=== PATIENT | male | born 1965 | race Caucasian/White ===

== ENCOUNTER 2017-08-17 08:09 | Emergency (ER) | payer OTHER, SELFPAY ==
[2017-08-17 08:10] VITALS: BP 133/96; PULSE 103; RESP 14; TEMP 36.4; O2SAT 98; BMI 21.8
--- NOTE | 2017-08-17 08:21 | ED.DEP ---
ED Disposition - Plan for ED Patient: Chief Complaint: Cellulitis Instructions: ED Plantar Fasciitis Prescriptions: Cephalexin [Keflex] 500 mg PO Q6 #28 capsule Referrals: Abdullahi Hope III, MD [Primary Care Provider] - Norma Boyce DPM [STAFF PHYSICIAN] -
--- NOTE | 2017-08-17 08:25 | ED.VISSUMM ---
- ER Visit Summary Date of Service: 08/17/17 Chief Complaint: Bilateral foot pain History of Present Illness: The patient is a 51 M presenting with pain on the bottom of both feet. He states he walks frequently. He walks about 2 miles per day. He states he began having pain in both of his feet in the beginning of August. He was seen at urgent care. He was diagnosed with cellulitis. He was given Keflex. He states he improved within 2 days. He states yesterday the pain started to come back. Denies injury. Denies other complaints. Physical Examination: Vitals are stable. Patient is afebrile. Alert no acute distress. HEENT exam is unremarkable. Neck is supple. Lungs are clear and equal bilaterally. Heart is regular rate and rhythm. Extremities mild tenderness to plantar surface of both feet. Mild erythema of plantar surface of heel. Normal pulses. Active full range of motion. Skin is warm and dry. No focal neurologic deficit. Remainder of exam is unremarkable. Emergency Department Course and Treatment: I feel his history and physical are more consistent with plantar fasciitis. He is advised to wear supportive shoes and follow up with podiatry. Patient is concerned this may be an early cellulitis. He is given a prescription for Keflex and advised to return to the ED if he has any worsening symptoms. Disposition: Discharge home Impression: Plantar fasciitis This note was generated with [employer] dictation software. It may contain incorrect words, spelling, and punctuation that were not noted in review of the chart prior to signing ED Disposition - Plan for ED Patient: Chief Complaint: Cellulitis Instructions: ED Plantar Fasciitis Prescriptions: Cephalexin [Keflex] 500 mg PO Q6 #28 capsule Referrals: Abdullahi Hope III, MD [Primary Care Provider] - Norma Boyce DPM [STAFF PHYSICIAN] -
== END 2017-08-17 08:38 | disposition home or self-care (01) ==
LOC: ED 08:27
PROVIDERS: Emergency Provider Emergency Medicine; Family Provider Family Medicine; PCP Family Medicine
DX: M72.2 Plantar fascial fibromatosis (principal); I10 Essential (primary) hypertension; K21.9 Gastro-esophageal reflux disease without esophagitis; Z72.0 Tobacco use
CPT/HCPCS: 99282

== ENCOUNTER 2019-03-31 09:24 | Inpatient (IN) | payer MEDICAID, SELFPAY ==
[2019-03-31] VITALS (10 sets, daily range): BP systolic 144–161; BP diastolic 96–121; PULSE 95–133; RESP 14–20; TEMP 36.5–36.9; O2SAT 94–100; BMI 24.1; BMI 22.8; BMI 22.9
--- NOTE | 2019-03-31 09:44 | RAD_ITS ---
STUDY: X-RAY CHEST REASON FOR EXAM: Male, 53 years old. COUGH. TECHNIQUE: PA and lateral views of the chest. COMPARISON: Comparison is made with prior examination dated February 26, 2011. FINDINGS: Hyperinflation. The lungs are clear. Decrease lower bronchovascular markings suggestive of emphysematous changes. Stable calcified granuloma in the right lung base. There is no demonstrated pleural abnormality. Normal size heart. Normal mediastinum and june. Normal visualized pulmonary arteries. Normal visualized aortic arch and descending thoracic aorta. There are diffuse degenerative changes of the visualized thoracic spine. Healed right rib fractures. There is no demonstrated abnormality of the visualized soft tissue structures of the upper abdomen. RAD/Chest PA and Lateral IMPRESSION: Hyperinflation. No acute abnormality is seen. Electronically Signed: Colin Velez, at 11:10 EST , Service support ,
--- NOTE | 2019-03-31 09:44 | EKG12_ITS ---
Test Reason : SUBSTANCE ABUSE Blood Pressure : / mmHG Vent. Rate : 102 BPM Atrial Rate : 102 BPM P-R Int : 156 ms QRS Dur : 100 ms QT Int : 340 ms P-R-T Axes : 056 -24 057 degrees QTc Int : 443 ms Sinus tachycardia Anteroseptal infarct (cited on or before 29-APR-2013) Abnormal ECG Confirmed by ELOISE MENDOSA, KATHRYN ([id number]), health editor TERI SANON ([id number]) on 04/02/2019 1:09:30 PM Referred By: ROSSANA Confirmed By:ZAK NAVAS MD
--- NOTE | 2019-03-31 09:47 | ED.DCSUM_ITS ---
- ER Visit Summary Date of Service: 03/31/19 Chief Complaint: Alcohol detox History of Present Illness: The patient is a 53 M who presents requesting detox from alcohol. Patient states that since October he has been drinking approximately 12 beers per day. Patient states he feels shaky and has a throbbing headache whenever he tries to stop drinking alcohol. Patient states his last drink was approximately 30 minutes prior to arrival. Patient denies any visual changes or hallucinations. Patient also admits to a cough that has been getting worse over the past few days. Patient states he has some pain in his back that is similar to the pain he had when he had pneumonia. Patient denies any fevers or chills. Patient states he is coughing up some clear sputum. Physical Examination: Vital signs are stable except for an elevated blood pressure 157/119 and a tachycardia of 133. Patient is afebrile. Patient is in no acute distress. Oral mucosa is pink and moist. Neck is supple. Trachea is midline. There is no JVD. Heart was regular and tachycardic. Lungs show diffuse expiratory wheezes. There is good respiratory effort. There are no retractions. Abdomen is soft. Bowel sounds are normal. There is no tenderness. Cranial nerves II through XII are intact. There are no focal motor or sensory deficits noted. Test Results: CBC was normal. Comprehensive metabolic profile shows sodium of 125 and mildly elevated liver function tests. Serum alcohol level was 282. Urine tox screen was ordered and is pending. PA and lateral chest x-ray was obtained. There is no acute cardiopulmonary process. This was interpreted by the radiologist and reviewed by myself. Emergency Department Course and Treatment: Patient was given IV fluids, phenobarbital, and Ativan here. Patient was given a DuoNeb here. Patient was feeling better on reevaluation. Case was discussed with the hospitalist. She will admit the patient to her service. Patient understood and was agreeable with the plan. All questions were answered. Disposition: Admit to hospital Impression: Alcohol abuse This note was generated with [employer] dictation software. It may contain incorrect words, spelling, and punctuation that were not noted in review of the chart prior to signing ED Disposition - Plan for ED Patient: Disposition: Acute Care Hospital [facility] Diagnosis: Alcohol abuse Referrals: Abdullahi Hope III, MD [Primary Care Provider] -
[2019-03-31] MEDS: Ipratropium/Albuterol Sulfate 3 ML AMPUL.NEB INHALATION (09:58)
[2019-03-31] MEDS: LORazepam 2 MG/ML Syringe 0.5 MG IV (09:59)
[2019-03-31] MEDS: 0.9% Normal Saline 1,000 ML 1000 ML IV (09:59)
[2019-03-31 10:16] LABS: Absolute Lymphocyte Count 2.14 X10^3/uL (0.83-4.51); Absolute Neutrophil Count 4.3 X10^3/uL (2.0-7.7); Basophil# 0.04 X10^3/uL; Basophil% 0.5 % (0-1); Eosinophil# 0.25 X10^3/uL; Eosinophils% 3.4 % (0-5); Hematocrit 40.9 % (40-54); Hemoglobin 14.4 g/dL (13.0-16.5); Lymphocyte # 2.14 X10^3/ul (4.0); Mean Corp Hgb Conc 35.2 g/dL (32-36); Mean Corpuscular Hgb 32.4 pg (27.0-32.0); Mean Corpuscular Volume 91.9 fL (80-94); Mean Platelet Vol. 9.3 fl (6.2-12.0); Monocyte# 0.66 X10^3/uL; Monocyte% 8.9 % (0-10); NRBC Flagged by Analyzer 0 % (0-5); Neutrophil # 4.27 X10^3/uL (2.7-7.7); Neutrophil % 57.8 % (47-70); Platelet Count 193 K/mm3 (150-450); RBC Distribution Width CV 12.2 % (11.6-14.6); RBC Distribution Width SD 41.6 fl (35.1-43.9); Red Blood Count 4.45 M/mm3 (4.6-6.2); White Blood Count 7.4 K/mm3 (4.4-11.0)
[2019-03-31 10:33] LABS: ALB/GLOB Ratio 0.8 RATIO (0.9-2.4); AST(SGOT) 328 U/L (15-37); Alanine Aminotransfer ALT/SGPT 209 U/L (16-61); Albumin, Serum 3.3 g/dL (3.2-5.0); Alkaline Phosphatase 158 U/L (45-117); Anion Gap 9 (5-15); BUN 4 mg/dL (7-18); BUN/Creat Ratio 6.6 RATIO (10-20); Calcium,Total 8.4 mg/dL (8.5-10.1); Chloride 94 mmol/L (98-107); Creatinine, Serum 0.61 mg/dL (0.70-1.30); EST Glomerular Filtration Rate 147 mL/min (>60); Est Glom Filt Rate - Afr Amer 178 mL/min (>60); Estimated Creatinine Clearance 147.45 ml/min; Globulin 4.1 g/dL (2.2-4.2); Glucose 116 mg/dL (74-106); Lipase 353 U/L (73-393); Potassium 3.7 mmol/L (3.5-5.1); Protein, Total 7.4 g/dL (6.4-8.2); Sodium Level 125 mmol/L (136-145)
--- NOTE | 2019-03-31 11:50 | PCM.HP.STD ---
Problem List (1) Alcohol withdrawal Status: Acute Qualifiers: Complication of substance-induced condition: uncomplicated Qualified Code(s): F10.230 - Alcohol dependence with withdrawal, uncomplicated (2) Alcohol abuse Status: Chronic (3) Tobacco use Status: Chronic (4) GERD (gastroesophageal reflux disease) Status: Chronic Qualifiers: Esophagitis presence: esophagitis presence not specified Qualified Code(s): K21.9 - Gastro-esophageal reflux disease without esophagitis (5) Hypertension Status: Chronic Qualifiers: Hypertension type: essential hypertension Qualified Code(s): I10 - Essential (primary) hypertension History of Present Illness Date of Admission: 03/31/19 Chief Complaint: Alcohol abuse, desires detox The patient is a 53 y/o M w/ PMHx: HTN, Tobacco use, Chronic back pain w/ radiculopathy, Cannabis usage, Alcohol abuse (>12 beers daily), GERD who presents to the [facility] ED on 03/31/19 with history of losing his job this past October and since then has increased his beer intake, previously 5-6 beers each night now up to well past 12 beers daily with concurrently increased tobacco usage previously from half a pack to 1 pack/day now up to 2 pack/day cigarette tobacco usage attempting to decrease his alcohol intake over the last 2 to 3 days unsuccessfully with significant onset nausea, tremors, agitation, tactile disturbances with last drink 1 beer, 12 ounce approximately 1 hour prior to arrival but significant decrease in general intake over the last 24 to 48 hours. Patient interested in attaining sober status and has never been through alcohol detoxification prior. Discussed frankly that patient significant is also a heavy alcohol user and therefore complicates his chances of sobriety if he returns home to this environment. He notes that his significant and him are working on achieving a sober household. Work-up in the ED included 97.7, heart rate 133, BP 157/119, respiratory rate 18, 96% on room air, CBC with WBC 7.4, hemoglobin 14.4, platelet 193 with no shift, CMP with sodium 125, chloride 94, BUN/creatinine 4/0.61, glucose 116, AST/ALT 328/209, alk phos 158 lipase 353, alcohol level 282, chest x-ray with hyperinflation otherwise no acute abnormalities. In the ED patient administered normal saline, phenobarbital 324 mg p.o. x1, Ativan 0.5 mg IV x1 as well as DuoNeb therapy. Past Medical History Past Medical History (Chronic Problems): Chronic Problems Alcohol abuse (Chronic) Tobacco use (Chronic) GERD (gastroesophageal reflux disease) (Chronic) Hypertension (Chronic) Allergies lisinopril Allergy (Verified 03/31/19 09:25) Angioedema aspirin Adverse Reaction (Verified 03/31/19 09:25) HEARTBURN codeine Adverse Reaction (Verified 03/31/19 09:25) NIGHTMARES Home Medications: Ambulatory Orders Medication Instructions Recorded Omeprazole [Prilosec] 10 mg PO DAILY 04/29/13 Amlodipine [Norvasc] 10 mg PO DAILY #30 tablet 04/30/13 Hydrochlorothiazide [Hctz] 12.5 mg PO DAILY 08/17/17 Losartan Potassium 50 mg PO DAILY 08/17/17 Surgical History: - - L testicle removal s/p torsion at 18 y/o, T+A. Psychiatric History: No pertinent psych hx Lives: Spouse/ Significant Other Smoking Status: Current every day smoker - Patient currently up to 2 pack/day cigarette tobacco usage starting when he was 15 years old but increasing over the last year. Tobacco Use: Cigarettes Alcohol: Heavy - Patient currently drinking well over 12, 12 ounce beers daily, increased from prior 5-6 beers nightly following recent loss of his job. Drugs: Marijuana - *Family History Maternal History Items: - - Patient notes a maternal family history of hypertension, heart disease. Paternal History Items: - - Patient notes a paternal family history of hypertension, heart disease and diabetes. Review of Systems Constitutional: Reports: Anorexia, Malaise, Weakness, Fatigue. Denies: Chills, Fever, Weight Change HEENT: Reports: Head Aches. Denies: Sinus Congestion, Sinus Drainage Cardiovascular: Denies: Chest Pain, Palpitations Respiratory: Denies: Cough, Shortness of breath at rest, Sputum production Gastrointestinal: Reports: Nausea. Denies: Abdominal Pain, Vomiting Genitourinary: Denies: Dysuria Musculoskeletal: Reports: Back Pain, Joint Pain. Denies: Joint Tenderness Skin: Denies: Rash, Wounds Neurological: Reports: Tremor. Denies: Focal weakness, Numbness, Tingling Psychiatric: Reports: - - Tactile hallucinations.. Denies: Anxiety, Depression, Homicidal Ideations, Suicidal Ideations Hematologic/ Lymphatic: Denies: Easy Bruising, Easy Bleeding VTE Information - Inpt Only VTE Present on Admission: No VTE Mechan Device Prophylaxis: SCD's VTE Pharm Prophylaxis ordered?: Yes Patient Problems: Active and Suspected Problems Alcohol withdrawal (Acute) Subjective: Seated upright in the bed, fatigued appearance, notes tremors improving since phenobarbital but mildly agitated. Objective: Physical Examination: General: awake, alert, oriented x 3 and cooperative, seated upright in the medical surgical bed, no acute distress but still mild tremors, improved he notes from initial ED presentation. Skin: normal color, turgor, no icterus, cyanosis. HEENT: AT/NC, EOMI, PERRLA, dry MM, no carotid bruits or JVD noted. Lungs: CTA bilaterally, moderate effort, moderate decrease BL bases, no rales, ronchi or wheezing. Heart: Mildly tachycardic with regular rhythm; no gallop, rub audible. Abdomen: soft, NTTP, ND, normal BS, mild HM. Extremities: no cyanosis, clubbing, or edema. Neurological: patient awake, alert, oriented x 3; cognitive function suspect near baseline intact; pupils equally reactive to light and accomodation; cranial nerves II-XII grossly normal, moving all 4 extremities, no focal deficits, strength moderately global decrease secondary to acute presentation, mild tremors present although improved initial ED presentation he notes. Psychiatric: affect appears [place], mildly agitated, no acute evidence of depressive or anxiety feelings. - Physical Exam Vitals/I&O's: Vital Signs Temp Pulse Resp BP Pulse Ox 97.7 F L 112 H 14 161/106 H 96 03/31/19 10:03 03/31/19 11:14 03/31/19 11:14 03/31/19 11:14 03/31/19 11:14 Oxygen Delivery Method Room Air Weight: 173 lb 4.533 oz Body Mass Index (BMI) 24.1 Laboratory Results 03/31/19 10:07: WBC 7.4, RBC 4.45 L, Hgb 14.4, Hct 40.9, MCV 91.9, MCH 32.4 H, MCHC 35.2, RDW Std Deviation 41.6, RDW Coeff of Wen 12.2, Plt Count 193, MPV 9.3, Immature Gran % (Auto) 0.400, Neut % (Auto) 57.8, Lymph % (Auto) 29.0, [place] % (Auto) 8.9, Eos % (Auto) 3.4, Baso % (Auto) 0.5, Absolute Neuts (auto) 4.3, Absolute Lymphs (auto) 2.14, Nucleated RBC % 0 03/31/19 10:07: Sodium 125 L, Potassium 3.7, Chloride 94 L, Carbon Dioxide 22.0, Anion Gap 9, BUN 4 L, Creatinine 0.61 L, Estim Creat Clear Calc 147.45, Est GFR (MDRD) Af Amer 178, Est GFR (MDRD) Non-Af 147, BUN/Creatinine Ratio 6.6 L, Glucose 116 H, Calcium 8.4 L, Total Bilirubin 0.50, AST 328 H, ALT 209 H, Alkaline Phosphatase 158 H, Total Protein 7.4, Albumin 3.3, Globulin 4.1, Albumin/Globulin Ratio 0.8 L, Lipase 353 03/31/19 10:07: Ethyl Alcohol 282.0 Assessment/Plan All Active Problems Alcohol withdrawal (Acute) Angioedema of lips (Acute) The patient is a 53 y/o M w/ PMHx: HTN, Tobacco use, Chronic back pain w/ radiculopathy, Cannabis usage, Alcohol abuse (>12 beers daily), GERD who presents to the [facility] ED on 03/31/19 with history of losing his job this past October and since then has increased his beer intake, previously 5-6 beers each night now up to well past 12 beers daily, attempting to decrease his alcohol intake over the last 2 to 3 days unsuccessfully with significant onset nausea, tremors, agitation, tactile disturbances with last drink 1 beer, 12 ounce approximately 1 hour prior to arrival. 1. Acute EtOH Withdrawal: Will admit to [facility], routine of labs obtained in the ED with noted sodium 125, chloride 94, BUN/creatinine 4/0.61, glucose 116, AST/ALT 328/209, alk phos 158 lipase 353, alcohol level 282, urine tox screen with positive cannabis, will initiate on IV phenobarbital taper with 60 mg IV every 6 hours x24 hours with then transition to 60 mg IV every 8 hours x24 hours and then transition to 60 mg IV twice daily with also as needed Seroquel, Catapres, Bentyl, Vistaril, IV fluids, IV antiemetics, Tylenol as needed for pain. Once patient clinically improved and completion of taper nearing will request case management consultation for assistance for transition to next level of rehabilitation care especially if patient significant is going to be in the house and continues to drink heavily. Mag, phos pending. Maintain on concurrent CIWA protocol. 2. Hyponatremia, acute on chronic: Admission sodium 125, likely chronic component with beer pyromania, gently hydrating given dehydrated appearance upon presentation, repeat CMP in a.m. 3. Elevated LFTs: Admission AST/ALT 328/209, likely related with his acute alcohol intake, gently hydrating, initiating alcohol withdrawal protocol as noted, trend CMP, consider ultrasound, notes that he has had HIV and hepatitis testing secondary to sexual intercourse status with men and was noted to be negative recently. 4. Hypertension: Continue home regimen including Norvasc, losartan, given acute presentation temporarily holding hydrochlorothiazide with re-addition once appropriate, PRN hydralazine. 5. Tobacco Abuse: Encouraged cessation, inpatient consultation per RT, NR if desired. 6. GERD: Maintain on PPI. 7. DVT prophylaxis: SCDs, Lovenox with de-escalation once more ambulatory. Code Visit Inpatient E&M: [id number] Init Hosp L3
--- NOTE | 2019-03-31 11:57 | CM.ED ---
Social Work Consult: Substance Abuse Informant: Dr. Mcneal Chief Complaint: Patient wanting to detox from alcohol. Patient stating to have attempted on own but to have been too unsteady. Patient also stating to have had a racing heart beat. Marital/Social History: Currently in relationship with Andrés Parsons. Patient stating to have been with Andrés for several years. Patient stating that Bill is patient partner and is supportive of patient. Living Situation: Andrés recently moved in with patient. Stressors/Triggers: Patient lost job in 2018 and stating to have increased in drinking since then. 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 Patient currently unemployed and working on finding a job. Patient stating there are jobs out there. Patient stating to have not found the job that is offering patient enough money yet. Mental Health Treatment/History: Patient stating a history of depression but no active treatment for this. Patient stating to have received treatment for depression years ago via counseling/medication. Patient stating I need to get back on that. Patient denies any history of inpatient psychiatric placements. Substance Abuse/Use: Patient stating to drink 12-14 regular sized cans of beer daily. Patient stating to have not eaten for the past week and to have depended on beer for nutrition. Patient stating no history of detox but to be aware of process due to patient partner doing through alcohol detox 8 times in the past. Patient stating that partner does still drink alcohol but that patient partner is supportive and did bring patient to the ED today. Patient stating to smoke tobacco daily and to use THC occasionally. Patient stating last beer was this morning and last use of THC was a few days ago. Patient denies any other substance abuse/use. Risk to Self/Others: Patient denies any current or history of suicidal/homicidal thoughts/attempts. Mental Status Exam: A&Ox3 General Behavior/Appearance: Calm. Clean. Appropriate. Engaged in conversation. Pleasant Affect. Made appropriate eye contact. Assessment: Met with patient in room. Introduced self as well as social service technician role. Patient stating to have attempted detox on own at home but that it did not work and patient ended up drinking beer today. Patient did not specify for how long patient attempted detox on own. Patient aware that detoxing from alcohol can be life threatening. Patient stating to have been scared and this is why patient came to the hospital today. Patient desires inpatient admission for detox and then plans to follow up with [facility] as an outpatient. Patient stating a history of a DUI and to have followed up with [facility] at the time and this was supportive and help for patient. Patient stating to have also attended AA groups in the past but to not be sure if patient would like to go back as there is a mindset. Patient did voice that AA groups could be supportive. Active listening and support provided. Currently pending doctor assessment to see if patient qualifies for inpatient stay for detox. Will follow up with patient further if patient is to be discharged to the community on this day. If patient is to be admitted social work to continue to follow as needed on the acute care unit. PLAN: Pending doctor evaluation for disposition. Gianna PLATT, SOTERO
--- NOTE | 2019-03-31 12:10 | CM.ED ---
Social Work Patient to be admitted to acute per medical doctor documentation. Gianna Schafer OPERATING ROOM REGISTERED NURSE, SOTERO
[2019-03-31 12:17] LABS: Bacteria 0 SEEN /hpf (None Seen); Mucous, Urine 0 SEEN /hpf (<or=2+); White Blood Cells 0 SEEN /hpf (0-5)
[2019-03-31 12:18] LABS: Color, Urine Straw (Yellow); Glucose, Dipstick Normal (Normal); Ketone-Dipstick Negative (Negative); Leukocyte Esterase-Dipstick Negative /ul (Negative); Nitrite-Dipstick Negative (Negative); Occult Blood-Urine 10 /ul (Negative); Protein-Dipstick 15 mg/dl (Negative); Specific Gravity, Urine 1.005 (1.002-1.030); Urine Bilirubin Dipstick Negative (Negative); Urine Clarity Sl. Cloudy (Clear); Urine Urobilinogen Normal (Normal)
[2019-03-31 12:24] LABS: Red Blood Cells-Urine 0-5 SEEN /hpf (0-5); Squamous Epithelial Cells - UA 0-5 SEEN /hpf (0-5)
[2019-03-31 12:30] LABS: Amphetamine Urine VISTA NEGATIVE (<1000 ng/mL); Barbiturate Urine VISTA NEGATIVE (< 200 ng/mL); Benzodiazepine Urine VISTA NEGATIVE (< 200 ng/mL); Cocaine Urine VISTA NEGATIVE (< 300 ng/mL); Ecstacy Urine VISTA NEGATIVE (< 500 ng/mL); Methadone Urine VISTA NEGATIVE (< 300 ng/mL); PCP Urine VISTA NEGATIVE (< 25 ng/mL); THC Urine VISTA POSITIVE (< 50 ng/mL); Vista UDS pH Range 6
[2019-03-31 13:23] LABS: Magnesium 1.9 mg/dL (1.6-2.6); Phosphorus 3.8 mg/dL (2.5-4.9)
[2019-03-31] MEDS: 0.9% Saline Lock 10 ML Syringe IV ×5 (13:32→22:10)
[2019-03-31] MEDS: 0.9% Normal Saline 1,000 ML 125 ML IV (13:33)
[2019-03-31 13:46] LABS: Bedside Glucose 89 mg/dL (70-110)
--- NOTE | 2019-03-31 13:53 | NURSING ---
This RN called [facility] in [place] and verified home meds with pharmacy per pt request.
[2019-03-31] MEDS: Thiamine Hydrochloride 100 MG Tablet PO (14:03)
[2019-03-31] MEDS: Folic Acid 1 MG Tablet PO (14:03)
[2019-03-31] MEDS: Phenobarbital Sodium 65 MG/ML Vial 60 MG IV ×2 (14:04→20:35)
[2019-03-31] MEDS: LORazepam 2 MG/ML Syringe IV (17:13)
--- NOTE | 2019-03-31 18:08 | NURSING ---
pt refusing scd's- states they will drive me crazy. Educated on reason why they were ordered and to prevent DVT- pt refuses to wear despite education.
[2019-03-31] MEDS: traZODone 50 MG Tablet PO (22:21)
[2019-03-31] MEDS: LORazepam 1 MG Tablet 2 MG PO (22:28)
[2019-03-31] MEDS: Methocarbamol 750 MG Tablet PO (22:28)
[2019-03-31] MEDS: amLODIPine 10 MG Tablet PO (22:30)
[2019-03-31] MEDS: Losartan Potassium 50 MG Tablet PO (22:31)
[2019-04-01] VITALS (9 sets, daily range): BP systolic 134–162; BP diastolic 94–119; PULSE 90–100; RESP 16–20; TEMP 36.6–37.2; O2SAT 95–99
[2019-04-01] MEDS: Phenobarbital Sodium 65 MG/ML Vial 60 MG IV ×4 (02:53→23:12)
[2019-04-01] MEDS: 0.9% Saline Lock 10 ML Syringe IV ×3 (02:53→23:21)
[2019-04-01] MEDS: Ibuprofen 600 MG Tablet PO (02:57)
[2019-04-01 05:06] LABS: Absolute Lymphocyte Count 1.19 X10^3/uL (0.83-4.51); Absolute Neutrophil Count 5.3 X10^3/uL (2.0-7.7); Basophil# 0.05 X10^3/uL; Basophil% 0.7 % (0-1); Eosinophil# 0.21 X10^3/uL; Eosinophils% 2.8 % (0-5); Hematocrit 39.9 % (40-54); Hemoglobin 13.7 g/dL (13.0-16.5); Lymphocyte # 1.19 X10^3/ul (4.0); Mean Corp Hgb Conc 34.3 g/dL (32-36); Mean Corpuscular Hgb 32.1 pg (27.0-32.0); Mean Corpuscular Volume 93.4 fL (80-94); Mean Platelet Vol. 9.7 fl (6.2-12.0); Monocyte# 0.69 X10^3/uL; Monocyte% 9.2 % (0-10); NRBC Flagged by Analyzer 0 % (0-5); Neutrophil # 5.28 X10^3/uL (2.7-7.7); Neutrophil % 70.8 % (47-70); Platelet Count 155 K/mm3 (150-450); RBC Distribution Width CV 12.5 % (11.6-14.6); RBC Distribution Width SD 43.1 fl (35.1-43.9); Red Blood Count 4.27 M/mm3 (4.6-6.2); White Blood Count 7.5 K/mm3 (4.4-11.0)
[2019-04-01 05:30] LABS: ALB/GLOB Ratio 0.9 RATIO (0.9-2.4); AST(SGOT) 224 U/L (15-37); Alanine Aminotransfer ALT/SGPT 181 U/L (16-61); Albumin, Serum 3.2 g/dL (3.2-5.0); Alkaline Phosphatase 154 U/L (45-117); Anion Gap 5 (5-15); BUN 5 mg/dL (7-18); BUN/Creat Ratio 8.3 RATIO (10-20); Calcium,Total 8.5 mg/dL (8.5-10.1); Chloride 95 mmol/L (98-107); Creatinine, Serum 0.61 mg/dL (0.70-1.30); EST Glomerular Filtration Rate 147 mL/min (>60); Est Glom Filt Rate - Afr Amer 178 mL/min (>60); Estimated Creatinine Clearance 145.68 ml/min; Globulin 3.6 g/dL (2.2-4.2); Glucose 91 mg/dL (74-106); Potassium 3.7 mmol/L (3.5-5.1); Protein, Total 6.8 g/dL (6.4-8.2); Sodium Level 129 mmol/L (136-145)
--- NOTE | 2019-04-01 07:45 | PCM.PN.HOSP ---
Patient Problems: Active and Suspected Problems Alcohol withdrawal (Acute) Subjective: Patient with no acute events overnight per self and per nursing report. Discussed recurrent elevation of liver enzymes and potential for liver ultrasound as patient had noted he had recent negative hepatitis panel but declined. Stated that it could be because of his alcohol consumption but there could also be an underlying alternate possibility but despite these discussions declined the study. He states that his withdrawal symptoms are remarkably improved. He denies any tremors. He notes he slept very well. He does state that he has information from case management and social work about 180 and this is being also given to his significant. Patient denies fevers, chills, nausea, emesis, abdominal pain, chest pain or dyspnea. Objective: Physical Examination: General: awake, alert, oriented x 3 and cooperative, seated upright in the Medr bed, well-appearing, no obvious withdrawal symptoms, notes feeling improved since initial presentation. Skin: normal color, turgor, no icterus, cyanosis. HEENT: AT/NC, EOMI, PERRLA, MMM. Lungs: CTA bilaterally, moderate effort, moderate decrease BL bases, no rales, ronchi or wheezing. Heart: Regular rate and rhythm; no gallop, rub audible. Abdomen: soft, NTTP, ND, normal BS. Extremities: no cyanosis, clubbing, or edema. Neurological: patient awake, alert, oriented x 3; cognitive function intact; pupils equally reactive to light and accomodation; cranial nerves II-XII grossly normal, moving all 4 extremities, no focal deficits, strength preserved. Psychiatric: affect appears improved, less fatigued, not agitated, no acute evidence of depressive or anxiety feelings. Vitals/I&O's: Vital Signs Temp Pulse Resp BP Pulse Ox 98.2 F 97 18 146/98 H 95 04/01/19 06:17 04/01/19 06:17 04/01/19 06:17 04/01/19 06:17 04/01/19 06:17 Oxygen Delivery Method Room Air Weight: 164 lb 0.383 oz Body Mass Index (BMI) 22.8 Intake and Output for Last 24 Hours 03/30/19 03/31/19 04/01/19 23:59 23:59 23:59 Intake Total 3200 / 3200 300 / 300 Balance 3200 / 3200 300 / 300 Laboratory Results 03/31/19 10:07: WBC 7.4, RBC 4.45 L, Hgb 14.4, Hct 40.9, MCV 91.9, MCH 32.4 H, MCHC 35.2, RDW Std Deviation 41.6, RDW Coeff of Wen 12.2, Plt Count 193, MPV 9.3, Immature Gran % (Auto) 0.400, Neut % (Auto) 57.8, Lymph % (Auto) 29.0, [place] % (Auto) 8.9, Eos % (Auto) 3.4, Baso % (Auto) 0.5, Absolute Neuts (auto) 4.3, Absolute Lymphs (auto) 2.14, Nucleated RBC % 0 03/31/19 10:07: Sodium 125 L, Potassium 3.7, Chloride 94 L, Carbon Dioxide 22.0, Anion Gap 9, BUN 4 L, Creatinine 0.61 L, Estim Creat Clear Calc 147.45, Est GFR (MDRD) Af Amer 178, Est GFR (MDRD) Non-Af 147, BUN/Creatinine Ratio 6.6 L, Glucose 116 H, Calcium 8.4 L, Total Bilirubin 0.50, AST 328 H, ALT 209 H, Alkaline Phosphatase 158 H, Total Protein 7.4, Albumin 3.3, Globulin 4.1, Albumin/Globulin Ratio 0.8 L, Lipase 353 03/31/19 10:07: Ethyl Alcohol 282.0 03/31/19 10:07: Phosphorus 3.8, Magnesium 1.9 03/31/19 12:05: Urine Color Straw, Urine Clarity Sl. Cloudy, Urine pH 7.0, Ur Specific [place] 1.005, Urine Protein 15 H, Urine Glucose (UA) Normal, Urine Ketones Negative, Urine Occult Blood 10 H, Urine Nitrite Negative, Urine Bilirubin Negative, Urine Urobilinogen Normal, Ur Leukocyte Esterase Negative, Urine RBC 0-5 SEEN, Urine WBC 0 SEEN, Ur Squamous Epith Cells 0-5 SEEN, Urine Bacteria 0 SEEN, Urine Mucus 0 SEEN 03/31/19 12:05: Urine Opiates Screen NEGATIVE, Urine Methadone Screen NEGATIVE, Ur Barbiturates Screen NEGATIVE, Ur Phencyclidine Scrn NEGATIVE, Ur Amphetamines Screen NEGATIVE, U Methamphetamin-MDMA NEGATIVE, U Benzodiazepines Scrn NEGATIVE, Urine Cocaine Screen NEGATIVE, U Cannabinoids Screen POSITIVE H, Ur Drug Screen Comment 03/31/19 13:36: POC Glucose 89 04/01/19 04:55: WBC 7.5, RBC 4.27 L, Hgb 13.7, Hct 39.9 L, MCV 93.4, MCH 32.1 H, MCHC 34.3, RDW Std Deviation 43.1, RDW Coeff of Wen 12.5, Plt Count 155, MPV 9.7, Immature Gran % (Auto) 0.500, Neut % (Auto) 70.8 H, Lymph % (Auto) 16.0 L, [place] % (Auto) 9.2, Eos % (Auto) 2.8, Baso % (Auto) 0.7, Absolute Neuts (auto) 5.3, Absolute Lymphs (auto) 1.19, Nucleated RBC % 0 04/01/19 04:55: Sodium 129 L, Potassium 3.7, Chloride 95 L, Carbon Dioxide 29.0, Anion Gap 5, BUN 5 L, Creatinine 0.61 L, Estim Creat Clear Calc 145.68, Est GFR (MDRD) Af Amer 178, Est GFR (MDRD) Non-Af 147, BUN/Creatinine Ratio 8.3 L, Glucose 91, Calcium 8.5, Total Bilirubin 1.30 H, AST 224 H, ALT 181 H, Alkaline Phosphatase 154 H, Total Protein 6.8, Albumin 3.2, Globulin 3.6, Albumin/Globulin Ratio 0.9 Current Medications Acetaminophen (Tylenol) 500 mg PO Q4H PRN PRN PRN Reason: Temp > 100.4 F Al Hydroxide/Mg Hydroxide (Mylanta Ii) 30 ml PO Q6H PRN PRN PRN Reason: dyspesia Albuterol Sulfate (Ventolin Aerosols) 2.5 mg INHALATION Q2H PRN PRN PRN Reason: Shortness of Breath/Wheezing Amlodipine Besylate (Norvasc) 10 mg PO DAILY [facility] Last Admin: 03/31/19 22:30 Dose: 10 mg Documented by: Bisacodyl (Dulcolax) 10 mg RECTAL DAILY PRN PRN Reason: Constipation Dicyclomine HCl (Bentyl) 20 mg PO Q6H PRN PRN PRN Reason: abdominal discomfort Enoxaparin Sodium (Lovenox) 40 mg SC DAILY [facility] Folic [facility] ([facility]) [facility] Stop: 04/02/19 08:01 Last Admin: 03/31/19 14:03 Dose: 1 mg Documented by: Glucagon () 1 mg IM .X1 PRN PRN Reason: Hypoglycemia Guaifenesin (Robitussin) 20 ml PO Q4H PRN PRN PRN Reason: COUGH Hydralazine HCl (Apresoline Iv) 10 mg IV Q4H PRN PRN PRN Reason: SBP > 160 Hydroxyzine Pamoate (Vistaril Pamoate Capsule) 50 mg PO Q6H PRN PRN PRN Reason: Mild Anxiety (score 1/3) Sodium Chloride () 250 mls @ 15 mls/hr IV .[id number] PRN PRN Reason: Saline Flush Sodium Chloride () 250 mls @ 15 mls/hr IV .[id number] PRN PRN Reason: Additional IVPB Infusion Dextrose (Dextrose 10%-Water) 250 mls @ 999 mls/hr IV .Q16M PRN; Protocol PRN Reason: HYPOGLYCEMIA Ibuprofen (Motrin) 600 mg PO Q8H PRN PRN PRN Reason: Pain Score 1-5/10 Last Admin: 04/01/19 02:57 Dose: 600 mg Documented by: Loperamide HCl (Imodium) 2 - 4 mg PO UD PRN PRN Reason: LOOSE STOOLS Lorazepam (Ativan) 2 mg IV X1 PRN PRN Reason: Seizure Lorazepam (Ativan) 2 mg PO Q2H PRN PRN; Protocol PRN Reason: CIWA score > 8 but <15 Last Admin: 03/31/19 22:28 Dose: 2 mg Documented by: Lorazepam (Ativan) 2 mg PO UD PRN; Protocol PRN Reason: CIWA score >/=15. Lorazepam (Ativan) 2 mg IV Q2H PRN PRN; Protocol PRN Reason: CIWA score > 8 but <15 Lorazepam (Ativan) 2 mg IV UD PRN; Protocol PRN Reason: CIWA score >/=15. Last Admin: 03/31/19 17:13 Dose: 2 mg Documented by: Losartan Potassium (Cozaar) 50 mg PO DAILY [facility] Last Admin: 03/31/19 22:31 Dose: 50 mg Documented by: Methocarbamol (Methocarbamol) 750 mg PO Q6H PRN PRN PRN Reason: Muscle Aches Last Admin: 03/31/19 22:28 Dose: 750 mg Documented by: Multivitamins (Multivitamin) [facility] Nicotine (Nicoderm Cq (Pbkc)) 21 mg TRANSDERM. DAILY [facility] Last Admin: 03/31/19 16:57 Dose: 21 mg Documented by: Nutritional Formula (Lactose Free) (Ensure Enlive) 120 ml PO 4X/DAY [facility] Last Admin: 03/31/19 22:21 Dose: 120 ml Documented by: Ondansetron HCl (Zofran Odt) 4 mg PO Q6H PRN PRN PRN Reason: NAUSEA Pantoprazole Sodium (Protonix) 20 mg PO DAILY [facility] Phenobarbital (Phenobarbital) 60 mg IV Q6H [facility] Stop: 04/01/19 08:01 Last Admin: 04/01/19 02:53 Dose: 60 mg Documented by: Phenobarbital (Phenobarbital) 60 mg IV Q8H [facility] Stop: 04/02/19 16:01 Phenobarbital (Phenobarbital) 60 mg IV Q12H [facility] Stop: 04/03/19 16:01 Senna (Senokot) 1 tablet PO QHS PRN PRN Reason: Constipation Sodium Chloride () 10 - 40 ml IV UD PRN PRN Reason: SALINE FLUSH Last Admin: 04/01/19 02:53 Dose: 10 ml Documented by: Thiamine HCl (Vitamin B1) [facility] Stop: 04/02/19 08:01 Last Admin: 03/31/19 14:03 Dose: 100 mg Documented by: Throat Lozenges (Cepacol Sore Throat Lozenge) 1 lozenge MUCOUS MEM Q2H PRN PRN PRN Reason: Sore throat or cough Trazodone HCl (Desyrel) 50 mg PO QHS [facility] Last Admin: 03/31/19 22:21 Dose: 50 mg Documented by: STROKE Vital Signs/Narrative: Vital Signs Temp Pulse Resp BP Pulse Ox 04/01/19 06:17 98.2 F 97 18 146/98 H 95 Medical Necessity - Tobacco Use Smoking Status: Current every day smoker - Patient currently up to 2 pack/day cigarette tobacco usage starting when he was 15 years old but increasing over the last year. Tobacco Use: Cigarettes Assessment/Plan All Active Problems Alcohol withdrawal (Acute) Angioedema of lips (Acute) The patient is a 53 y/o M w/ PMHx: HTN, Tobacco use, Chronic back pain w/ radiculopathy, Cannabis usage, Alcohol abuse (>12 beers daily), GERD who presents to the [facility] ED on 03/31/19 with history of losing his job this past October and since then has increased his beer intake, previously 5-6 beers each night now up to well past 12 beers daily, attempting to decrease his alcohol intake over the last 2 to 3 days unsuccessfully with significant onset nausea, tremors, agitation, tactile disturbances with last drink 1 beer, 12 ounce approximately 1 hour prior to arrival. 1. Acute EtOH Withdrawal: Admitted to CT, routine of labs obtained in the ED with noted sodium 125, chloride 94, BUN/creatinine 4/0.61, glucose 116, AST/ALT 328/209, alk phos 158 lipase 353, alcohol level 282, urine tox screen with positive cannabis, initiated on IV phenobarbital taper with 60 mg IV every 6 hours x24 hours with then transition to 60 mg IV every 8 hours x 24 hours and then transition to 60 mg IV twice daily with also as needed Seroquel, Catapres, Bentyl, Vistaril, IV fluids, IV antiemetics, Tylenol as needed for pain. Patient clinically improving, will continue current regimen as noted, discussed again patient's significant who is also an alcoholic and lives at the same house and patient noted that he was able to get information about 180 and is significant is amenable to reporting there and undergoing treatment also. Mag, phos obtained and normal levels. Maintain on concurrent CIWA protocol concurrently. 2. Hyponatremia, acute on chronic: Admission sodium 125, likely chronic component with beer potomania, gently hydrated given dehydrated appearance upon presentation, repeat CMP 04/01/19 with Na 129. 3. Elevated LFTs: Admission AST/ALT 328/209, likely related with his acute alcohol intake, gently hydrated, initiated alcohol withdrawal protocol as noted, trending CMP w/ noted 04/01/19 T Bili 1.30, AST/ALT 224/181, Alk phos 154, patient declined liver ultrasound and discussed that alcohol intake could likely be the etiology, also noted recent HIV and hepatitis testing which was unremarkable and notes that he does obtain this routinely. 4. Hypertension: Continue home regimen including Norvasc, will increase patient losartan, given acute presentation and history of beer potomania held hydrochlorothiazide, in the future may be a good option for this patient but given his chronic hyponatremia already will discontinue, PRN hydralazine. 5. Tobacco Abuse: Encouraged cessation, inpatient consultation per RT, NR if desired. 6. GERD: Maintain on PPI. 7. DVT prophylaxis: Improved status, encourage ambulation, d/c SCD/lovenox. Code Visit Inpatient E&M: 24474 Subs Hosp L2
[2019-04-01] MEDS: Folic Acid 1 MG Tablet PO (08:59)
[2019-04-01] MEDS: Thiamine Hydrochloride 100 MG Tablet PO (08:59)
[2019-04-01] MEDS: Multivitamins,Therapeutic Tablet 1 TABLET PO (08:59)
[2019-04-01] MEDS: Enoxaparin 40 MG/0.4 ML Syringe SC (09:00)
[2019-04-01] MEDS: Losartan Potassium 50 MG Tablet PO (09:00)
[2019-04-01] MEDS: amLODIPine 10 MG Tablet PO (09:01)
[2019-04-01] MEDS: Pantoprazole Sodium 20 MG Tablet PO (09:01)
--- NOTE | 2019-04-01 10:14 | CASEMGMT ---
Social Work Note SW met with pt to follow up on substance abuse and self-pay status. SW introduced self and role at [facility]. Pt is alert and orientated x3. Pt states that he plans on following up with [facility] at discharge and will either do Walk in Assessment or schedule an appointment. Pt denied wanting this worker to make appointment. Pt confirms that he doesn't have insurance. Pt states he hasn't applied for Medicaid and denied wanting a medicaid application. Pt denied any financial concerns. Pt denied wanting additional resources. Plan: [facility] at discharge [employer], [employer]
--- NOTE | 2019-04-01 17:10 | NURSING ---
iv phenobarb not on unit, pharmacy made aware to please send, dose for 1600 has not been given
[2019-04-01] MEDS: hydrALAZINE 20 MG/ML Vial 10 MG IV (23:21)
[2019-04-02 05:51] VITALS: BP 152/113; PULSE 100; RESP 16; TEMP 36.3; O2SAT 99
[2019-04-02] MEDS: LORazepam 1 MG Tablet 2 MG PO ×2 (05:59→16:41)
--- NOTE | 2019-04-02 07:02 | PN_ITS ---
Patient Problems: Active and Suspected Problems Alcohol withdrawal (Acute) Subjective: Patient notes overnight he decided not to take the trazodone and had significant difficulty sleeping with extremely intermittent vivid dreams. He notes that late yesterday he considered leaving as he felt like he could maybe do it on his own and was feeling improved but he is glad that he stayed especially given he felt worse during the evening but this morning was administered breakthrough CIWA and feels improved and understands what he needs to remain for ongoing treatment. Patient denies fevers, chills, nausea, emesis, abdominal pain, chest pain or dyspnea. Objective: Physical Examination: General: awake, alert, oriented x 3 and cooperative, seated upright in the [facility] bedside chair, more fatigued than day prior, no obvious withdrawal symptoms but does describe having a relatively rough night. Skin: normal color, turgor, no icterus, cyanosis. HEENT: AT/NC, EOMI, PERRLA, MMM. Lungs: CTA bilaterally, moderate effort, moderate decrease BL bases, no rales, ronchi or wheezing. Heart: Regular rate and rhythm; no gallop, rub audible. Abdomen: soft, NTTP, ND, normal BS. Extremities: no cyanosis, clubbing, or edema. Neurological: patient awake, alert, oriented x 3; cognitive function intact; pupils equally reactive to light and accomodation; cranial nerves II-XII grossly normal, moving all 4 extremities, no focal deficits, strength mildly global decreased given fatigue. Psychiatric: affect appears more fatigued than day prior, no acute evidence of depressive or anxiety feelings. Vitals/I&O's: Vital Signs Temp Pulse Resp BP Pulse Ox 97.4 F L 100 16 152/113 H 99 04/02/19 05:51 04/02/19 05:51 04/02/19 05:51 04/02/19 05:51 04/02/19 05:51 Oxygen Delivery Method Room Air Weight: 164 lb 0.383 oz Body Mass Index (BMI) 22.8 Intake and Output for Last 24 Hours 03/31/19 04/01/19 04/02/19 23:59 23:59 23:59 Intake Total 3200 / 3200 300 / 300 Balance 3200 / 3200 300 / 300 Current Medications Acetaminophen (Tylenol) 500 mg PO Q4H PRN PRN PRN Reason: Temp > 100.4 F Al Hydroxide/Mg Hydroxide (Mylanta Ii) 30 ml PO Q6H PRN PRN PRN Reason: dyspesia Albuterol Sulfate (Ventolin Aerosols) 2.5 mg INHALATION Q2H PRN PRN PRN Reason: Shortness of Breath/Wheezing Amlodipine Besylate (Norvasc) 10 mg PO DAILY [facility] Last Admin: 04/01/19 09:01 Dose: 10 mg Documented by: Bisacodyl (Dulcolax) 10 mg RECTAL DAILY PRN PRN Reason: Constipation Dicyclomine HCl (Bentyl) 20 mg PO Q6H PRN PRN PRN Reason: abdominal discomfort [facility]) [facility] Stop: 04/02/19 08:01 Last Admin: 04/01/19 08:59 Dose: 1 mg Documented by: Glucagon () 1 mg IM .X1 PRN PRN Reason: Hypoglycemia Guaifenesin (Robitussin) 20 ml PO Q4H PRN PRN PRN Reason: COUGH Hydralazine HCl (Apresoline Iv) 10 mg IV Q4H PRN PRN PRN Reason: SBP > 160 Last Admin: 04/01/19 23:21 Dose: 10 mg Documented by: Hydroxyzine Pamoate (Vistaril Pamoate Capsule) 50 mg PO Q6H PRN PRN PRN Reason: Mild Anxiety (score 1/3) Sodium Chloride () 250 mls @ 15 mls/hr IV .[id number] PRN PRN Reason: Saline Flush Sodium Chloride () 250 mls @ 15 mls/hr IV .[id number] PRN PRN Reason: Additional IVPB Infusion Dextrose (Dextrose 10%-Water) 250 mls @ 999 mls/hr IV .Q16M PRN; Protocol PRN Reason: HYPOGLYCEMIA Ibuprofen (Motrin) 600 mg PO Q8H PRN PRN PRN Reason: Pain Score 1-5/10 Last Admin: 04/01/19 02:57 Dose: 600 mg Documented by: Loperamide HCl (Imodium) 2 - 4 mg PO UD PRN PRN Reason: LOOSE STOOLS Lorazepam (Ativan) 2 mg IV X1 PRN PRN Reason: Seizure Lorazepam (Ativan) 2 mg PO Q2H PRN PRN; Protocol PRN Reason: CIWA score > 8 but <15 Last Admin: 04/02/19 05:59 Dose: 2 mg Documented by: Lorazepam (Ativan) 2 mg PO UD PRN; Protocol PRN Reason: CIWA score >/=15. Lorazepam (Ativan) 2 mg IV Q2H PRN PRN; Protocol PRN Reason: CIWA score > 8 but <15 Lorazepam (Ativan) 2 mg IV UD PRN; Protocol PRN Reason: CIWA score >/=15. Last Admin: 03/31/19 17:13 Dose: 2 mg Documented by: Losartan Potassium (Cozaar) 100 mg PO DAILY [facility] Methocarbamol (Methocarbamol) 750 mg PO Q6H PRN PRN PRN Reason: Muscle Aches Last Admin: 03/31/19 22:28 Dose: 750 mg Documented by: Multivitamins ([facility]itamin) [facility] Last Admin: 04/01/19 08:59 Dose: 1 tablet Documented by: Nicotine (Nicoderm Cq (Pbkc)) 21 mg TRANSDERM. DAILY [facility] Last Admin: 04/01/19 08:59 Dose: 21 mg Documented by: Nutritional Formula (Lactose Free) (Ensure Enlive) 120 ml PO 4X/DAY [facility] Last Admin: 04/01/19 20:33 Dose: Not Given Documented by: Ondansetron HCl (Zofran Odt) 4 mg PO Q6H PRN PRN PRN Reason: NAUSEA Pantoprazole Sodium (Protonix) 20 mg PO DAILY [facility] Last Admin: 04/01/19 09:01 Dose: 20 mg Documented by: Phenobarbital (Phenobarbital) 60 mg IV Q8H [facility] Stop: 04/02/19 16:01 Last Admin: 04/01/19 23:12 Dose: 60 mg Documented by: Phenobarbital (Phenobarbital) 60 mg IV Q12H [facility] Stop: 04/03/19 16:01 Senna (Senokot) 1 tablet PO QHS PRN PRN Reason: Constipation Sodium Chloride () 10 - 40 ml IV UD PRN PRN Reason: SALINE FLUSH Last Admin: 04/01/19 23:21 Dose: 10 ml Documented by: Thiamine HCl (Vitamin B1) [facility] Stop: 04/02/19 08:01 Last Admin: 04/01/19 08:59 Dose: 100 mg Documented by: Throat Lozenges (Cepacol Sore Throat Lozenge) 1 lozenge MUCOUS MEM Q2H PRN PRN PRN Reason: Sore throat or cough Trazodone HCl (Desyrel) 50 mg PO QHS [facility] Last Admin: 04/01/19 23:12 Dose: Not Given Documented by: STROKE Vital Signs/Narrative: Vital Signs Temp Pulse Resp BP Pulse Ox 04/02/19 05:51 97.4 F L 100 16 152/113 H 99 Medical Necessity - Tobacco Use Smoking Status: Current every day smoker - Patient currently up to 2 pack/day cigarette tobacco usage starting when he was 15 years old but increasing over the last year. Tobacco Use: Cigarettes Assessment/Plan All Active Problems Alcohol withdrawal (Acute) Angioedema of lips (Acute) The patient is a 53 y/o M w/ PMHx: HTN, Tobacco use, Chronic back pain w/ radiculopathy, Cannabis usage, Alcohol abuse (>12 beers daily), GERD who presents to the [facility] ED on 03/31/19 with history of losing his job this past October and since then has increased his beer intake, previously 5-6 beers each night now up to well past 12 beers daily, attempting to decrease his alcohol intake over the last 2 to 3 days unsuccessfully with significant onset nausea, tremors, agitation, tactile disturbances with last drink 1 beer, 12 ounce approximately 1 hour prior to arrival. 1. Acute EtOH Withdrawal: Admitted to [place], routine of labs obtained in the ED with noted sodium 125, chloride 94, BUN/creatinine 4/0.61, glucose 116, AST/ALT 328/209, alk phos 158 lipase 353, alcohol level 282, urine tox screen with positive cannabis, initiated on IV phenobarbital taper with 60 mg IV every 6 hours x24 hours with then transition to 60 mg IV every 8 hours x 24 hours and then transition to 60 mg IV twice daily with also as needed Seroquel, Catapres, Bentyl, Vistaril, IV fluids, IV antiemetics, Tylenol as needed for pain. Patient 04/01/2019 into 04/02/2019 a.m. with difficulty overnight with increased withdrawal symptoms, intermittent difficulty sleeping and vivid dreams with also tactile hallucinations however this improved through the morning especially with breakthrough [place]. Patient did initially have thoughts to leave but remained in his God he did so and this was discussed frankly. Reconfirmed that significant is being evaluated at 184 treatment. Mag and fossa levels normal. Maintain on breakthrough CIWA. 2. Hyponatremia, acute on chronic: Admission sodium 125, likely chronic component with beer potomania, gently hydrated given dehydrated appearance upon presentation, repeat CMP 04/01/19 with Na 129. Deferred further labs. 3. Elevated LFTs: Admission AST/ALT 328/209, likely related with his acute alcohol intake, gently hydrated, initiated alcohol withdrawal protocol as noted, trending CMP w/ noted 04/01/19 T Bili 1.30, AST/ALT 224/181, Alk phos 154, patient declined liver ultrasound and discussed that alcohol intake could likely be the etiology, also noted recent HIV and hepatitis testing which was unremarkable and notes that he does obtain this routinely. Deferred further labs. 4. Hypertension: Continue home regimen including Norvasc, increased patient losartan, given acute presentation and history of beer potomania held hydrochlorothiazide, in the future may be a good option for this patient but given his chronic hyponatremia already will discontinue, PRN hydralazine. 5. Tobacco Abuse: Encouraged cessation, inpatient consultation per RT, NR if desired. 6. GERD: Maintain on PPI. 7. DVT prophylaxis: Low risk, encourage ambulation. Code Visit Inpatient E&M: 91493 Subs Hosp L2
[2019-04-02] MEDS: Phenobarbital Sodium 65 MG/ML Vial 60 MG IV ×2 (07:59→16:41)
[2019-04-02] MEDS: Thiamine Hydrochloride 100 MG Tablet PO (08:00)
[2019-04-02] MEDS: Folic Acid 1 MG Tablet PO (08:00)
[2019-04-02] MEDS: 0.9% Saline Lock 10 ML Syringe IV ×2 (08:01→16:45)
[2019-04-02] MEDS: Multivitamins,Therapeutic Tablet 1 TABLET PO (08:01)
[2019-04-02 10:00] VITALS: BP 140/92; PULSE 95; RESP 16; TEMP 36.6; O2SAT 99
[2019-04-02 11:00] VITALS: O2SAT 98
[2019-04-02] MEDS: Pantoprazole Sodium 20 MG Tablet PO (11:41)
[2019-04-02] MEDS: amLODIPine 10 MG Tablet PO (11:41)
[2019-04-02] MEDS: Losartan Potassium 100 MG Tablet PO (11:41)
[2019-04-02 16:35] LABS: Bedside Glucose 110 mg/dL (70-110)
[2019-04-02] MEDS: Loperamide 2 MG Capsule PO (16:42)
[2019-04-02] MEDS: Ondansetron ODT 4 MG Tablet PO (16:42)
[2019-04-02 17:25] VITALS: BP 150/106; PULSE 104; RESP 18; TEMP 36.4; O2SAT 100
[2019-04-02 20:32] VITALS: BP 138/91; PULSE 98; RESP 16; TEMP 36.8; O2SAT 94
[2019-04-02] MEDS: traZODone 50 MG Tablet PO (20:41)
[2019-04-03 03:04] VITALS: BP 127/89; PULSE 86; RESP 16; TEMP 36.6; O2SAT 97
[2019-04-03] MEDS: Phenobarbital Sodium 65 MG/ML Vial 60 MG IV (04:41)
[2019-04-03] MEDS: Loperamide 2 MG Capsule PO (04:47)
--- NOTE | 2019-04-03 07:11 | PCM.PN.HOSP ---
Subjective: Patient with no acute events overnight per self and per nursing report. Notes he slept better, denies any alcohol withdrawal symptoms. Patient is very eager for discharge and states that he feels as though he does not need the repeat phenobarbital dosing set for this afternoon. Discussed at length and patient is very adamant and given clinically appearing well and has good follow-up plan amenable to discharge now. Encouraged again strongly that patient be in an environment with no alcohol including his own home to which he understands notes intention for a sponsor contact immediately prior to discharge. Patient denies fevers, chills, nausea, emesis, abdominal pain, chest pain or dyspnea. Objective: Physical Examination: General: awake, alert, oriented x 3 and cooperative, seated upright in the [facility] bedside chair, feeling improved, slept better, no withdrawal symptoms, eager for discharge now. Skin: normal color, turgor, no icterus, cyanosis. HEENT: AT/NC, EOMI, PERRLA, MMM. Lungs: CTA bilaterally, moderate effort, moderate decrease BL bases, no rales, ronchi or wheezing. Heart: Regular rate and rhythm; no gallop, rub audible. Abdomen: soft, NTTP, ND, normal BS. Extremities: no cyanosis, clubbing, or edema. Neurological: patient awake, alert, oriented x 3; cognitive function intact; pupils equally reactive to light and accomodation; cranial nerves II-XII grossly normal, moving all 4 extremities, no focal deficits, strength improved, baseline, preserved. Psychiatric: affect appears normalized, more alert and interactive, less fatigued, eager for discharge, no acute evidence of depressive or anxiety feelings. Vitals/I&O's: Vital Signs Temp Pulse Resp BP Pulse Ox 97.8 F 86 16 127/89 H 97 04/03/19 03:04 04/03/19 03:04 04/03/19 03:04 04/03/19 03:04 04/03/19 03:04 Oxygen Delivery Method Room Air Weight: 164 lb 0.383 oz Body Mass Index (BMI) 22.8 Intake and Output for Last 24 Hours 04/01/19 04/02/19 04/03/19 23:59 23:59 23:59 Intake Total 300 / 300 Balance 300 / 300 Laboratory Results 04/02/19 16:31: POC Glucose 110 Current Medications Acetaminophen (Tylenol) 500 mg PO Q4H PRN PRN PRN Reason: Temp > 100.4 F Al Hydroxide/Mg Hydroxide (Mylanta Ii) 30 ml PO Q6H PRN PRN PRN Reason: dyspesia Albuterol Sulfate (Ventolin Aerosols) 2.5 mg INHALATION Q2H PRN PRN PRN Reason: Shortness of Breath/Wheezing Amlodipine Besylate (Norvasc) 10 mg PO DAILY [facility] Last Admin: 04/02/19 11:41 Dose: 10 mg Documented by: Bisacodyl (Dulcolax) 10 mg RECTAL DAILY PRN PRN Reason: Constipation Dicyclomine HCl (Bentyl) 20 mg PO Q6H PRN PRN PRN Reason: abdominal discomfort Glucagon () 1 mg IM .X1 PRN PRN Reason: Hypoglycemia Guaifenesin (Robitussin) 20 ml PO Q4H PRN PRN PRN Reason: COUGH Hydralazine HCl (Apresoline Iv) 10 mg IV Q4H PRN PRN PRN Reason: SBP > 160 Last Admin: 04/01/19 23:21 Dose: 10 mg Documented by: Hydroxyzine Pamoate (Vistaril Pamoate Capsule) 50 mg PO Q6H PRN PRN PRN Reason: Mild Anxiety (score 1/3) Sodium Chloride () 250 mls @ 15 mls/hr IV .[id number] PRN PRN Reason: Saline Flush Sodium Chloride () 250 mls @ 15 mls/hr IV .[id number] PRN PRN Reason: Additional IVPB Infusion Dextrose (Dextrose 10%-Water) 250 mls @ 999 mls/hr IV .Q16M PRN; Protocol PRN Reason: HYPOGLYCEMIA Ibuprofen (Motrin) 600 mg PO Q8H PRN PRN PRN Reason: Pain Score 1-5/10 Last Admin: 04/01/19 02:57 Dose: 600 mg Documented by: Loperamide HCl (Imodium) 2 - 4 mg PO UD PRN PRN Reason: LOOSE STOOLS Last Admin: 04/03/19 04:47 Dose: 2 mg Documented by: Lorazepam (Ativan) 2 mg IV X1 PRN PRN Reason: Seizure Lorazepam (Ativan) 2 mg PO Q2H PRN PRN; Protocol PRN Reason: CIWA score > 8 but <15 Last Admin: 04/02/19 16:41 Dose: 2 mg Documented by: Lorazepam (Ativan) 2 mg PO UD PRN; Protocol PRN Reason: CIWA score >/=15. Lorazepam (Ativan) 2 mg IV Q2H PRN PRN; Protocol PRN Reason: CIWA score > 8 but <15 Lorazepam (Ativan) 2 mg IV UD PRN; Protocol PRN Reason: CIWA score >/=15. Last Admin: 03/31/19 17:13 Dose: 2 mg Documented by: Losartan Potassium (Cozaar) 100 mg PO DAILY [facility] Last Admin: 04/02/19 11:41 Dose: 100 mg Documented by: Methocarbamol (Methocarbamol) 750 mg PO Q6H PRN PRN PRN Reason: Muscle Aches Last Admin: 03/31/19 22:28 Dose: 750 mg Documented by: [facility] Last Admin: 04/02/19 08:01 Dose: 1 tablet Documented by: Nicotine (Nicoderm Cq (Pbkc)) 21 mg TRANSDERM. DAILY [facility] Last Admin: 04/02/19 11:41 Dose: 21 mg Documented by: Nutritional Formula (Lactose Free) (Ensure Enlive) 120 ml PO 4X/DAY [facility] Last Admin: 04/02/19 20:40 Dose: Not Given Documented by: Ondansetron HCl (Zofran Odt) 4 mg PO Q6H PRN PRN PRN Reason: NAUSEA Last Admin: 04/02/19 16:42 Dose: 4 mg Documented by: Pantoprazole Sodium (Protonix) 20 mg PO DAILY [facility] Last Admin: 04/02/19 11:41 Dose: 20 mg Documented by: Phenobarbital (Phenobarbital) 60 mg IV Q12H [facility] Stop: 04/03/19 16:01 Last Admin: 04/03/19 04:41 Dose: 60 mg Documented by: Senna (Senokot) 1 tablet PO QHS PRN PRN Reason: Constipation Sodium Chloride () 10 - 40 ml IV UD PRN PRN Reason: SALINE FLUSH Last Admin: 04/02/19 16:45 Dose: 10 ml Documented by: Throat Lozenges (Cepacol Sore Throat Lozenge) 1 lozenge MUCOUS MEM Q2H PRN PRN PRN Reason: Sore throat or cough Trazodone HCl (Desyrel) 50 mg PO QHS [facility] Last Admin: 04/02/19 20:41 Dose: 50 mg Documented by: Medical Necessity - Tobacco Use Smoking Status: Current every day smoker - Patient currently up to 2 pack/day cigarette tobacco usage starting when he was 15 years old but increasing over the last year. Tobacco Use: Cigarettes Assessment/Plan All Active Problems Alcohol withdrawal (Acute) Angioedema of lips (Acute) The patient is a 53 y/o M w/ PMHx: HTN, Tobacco use, Chronic back pain w/ radiculopathy, Cannabis usage, Alcohol abuse (>12 beers daily), GERD who presents to the [facility] ED on 03/31/19 with history of losing his job this past October and since then has increased his beer intake, previously 5-6 beers each night now up to well past 12 beers daily, attempting to decrease his alcohol intake over the last 2 to 3 days unsuccessfully with significant onset nausea, tremors, agitation, tactile disturbances with last drink 1 beer, 12 ounce approximately 1 hour prior to arrival. 1. Acute EtOH Withdrawal: Admitted to [facility], routine of labs obtained in the ED with noted sodium 125, chloride 94, BUN/creatinine 4/0.61, glucose 116, AST/ALT 328/209, alk phos 158 lipase 353, alcohol level 282, urine tox screen with positive cannabis, initiated on IV phenobarbital taper with 60 mg IV every 6 hours x24 hours with then transition to 60 mg IV every 8 hours x 24 hours and then transition to 60 mg IV twice daily with also as needed Seroquel, Catapres, Bentyl, Vistaril, IV fluids, IV antiemetics, Tylenol as needed for pain. Mag and phos normal levels. Patient 04/01/2019 into 04/02/2019 a.m. with difficulty overnight with increased withdrawal symptoms, intermittent difficulty sleeping and vivid dreams with also tactile hallucinations however this improved through the morning especially with breakthrough CIWA. 04/03/19 improved overnight, eager for discharge. Discussed at length and given patient improvement, good follow-up plan in place will discharge to home. Strongly again encouraged home environment be completely devoid of EtOH which he notes understanding. 2. Hyponatremia, acute on chronic: Admission sodium 125, likely chronic component with beer potomania, gently hydrated given dehydrated appearance upon presentation, repeat CMP 04/01/19 with Na 129. Deferred further labs. 3. Elevated LFTs: Admission AST/ALT 328/209, likely related with his acute alcohol intake, gently hydrated, initiated alcohol withdrawal protocol as noted, trending CMP w/ noted 04/01/19 T Bili 1.30, AST/ALT 224/181, Alk phos 154, patient declined liver ultrasound and discussed that alcohol intake could likely be the etiology, also noted recent HIV and hepatitis testing which was unremarkable and notes that he does obtain this routinely. Deferred further labs. 4. Hypertension: Continue home regimen including Norvasc, increased patient losartan, given acute presentation and history of beer potomania held hydrochlorothiazide, in the future may be a good option for this patient but given his chronic hyponatremia already will discontinue, PRN hydralazine. 5. Tobacco Abuse: Encouraged cessation, inpatient consultation per RT, NR if desired. 6. GERD: Maintain on PPI. 7. DVT prophylaxis: Low risk, encourage ambulation. Code Visit Inpatient E&M: 19530 Subs Hosp L2
[2019-04-03] MEDS: Dicyclomine 10 MG Capsule 20 MG PO (07:19)
[2019-04-03 07:38] VITALS: O2SAT 98
[2019-04-03 07:53] VITALS: BP 150/100; PULSE 94; RESP 16; TEMP 36.8; O2SAT 97
--- NOTE | 2019-04-03 08:49 | DCINST_ITS ---
- Discharge Diagnoses Current Active Problems: Current Active and Chronic Problems 1. Acute EtOH Withdrawal 2. Hyponatremia, acute on chronic 3. Elevated LFTs, likely secondary to Alcohol abuse 4. Hypertension 5. Tobacco Abuse 6. GERD You will use the following diet at home:: Cardiac Your food should be the consistency of: Regular Your liquids should be the consistency of: Regular/Thin Discharge Activity: Return to Normal Activity May resume sexual activity in: No Restrictions Weight Bearing Status: Weight bearing as tolerated Call your doctor if you observe: Fever of 101 or Higher, Inability to urinate, Inability to have a bowel movement, Shortness of breath, Dizziness, Fainting spells, Chest pain, Uncontrolled pain Instructions: Understanding Alcoholism, Alcoholism: Myths and Facts, The Impact of Alcoholism, Alcoholism: Getting Help, Signs of Addiction: Social Use, Signs of Addiction: Problem Use, Signs of Addiction: Becoming Addicted, Addiction: Ask Yourself These Questions Additional Instructions: During the admission you were treated for acute alcohol withdrawal with recommendation for continued close monitoring outpatient per case management and social work recommendation. We strongly recommend that you avoid situations where people are drinking. We strongly recommend that there be no alcohol in the home. We will send prescription to your pharmacy for a multivitamin, thiamine and folic acid as these are often depleted in people who are alcoholics and these may be continued. Additionally, during the admission we temporarily increased her losartan and held the hydrochlorothiazide as you were dehydrated upon presentation also with a chronic low sodium secondary to alcohol abuse but your levels have improved and this regimen may be resumed however we recommend an outpatient basic metabolic panel recheck and if any ongoing concerns may consider discontinuation of this medicine and an alternate regimen be initiated. Allergies/Adverse Reactions: Allergies lisinopril Allergy (Verified 03/31/19 09:25) Angioedema aspirin Adverse Reaction (Verified 03/31/19 09:25) HEARTBURN codeine Adverse Reaction (Verified 03/31/19 09:25) NIGHTMARES Medications to take at Discharge Amlodipine [Norvasc] 10 mg PO DAILY #30 tablet 04/30/13 Hydrochlorothiazide [Hctz] 12.5 mg PO DAILY 08/17/17 Losartan Potassium 50 mg PO DAILY 08/17/17 Folic Acid 1 mg PO DAILY #30 tab 04/03/19 Multivitamins,Therapeutic [Multivitamin] 1 tab PO DAILYCM #30 tab 04/03/19 Thiamine Mononitrate (Vit B1) [Vitamin B-1] 100 mg PO DAILY #30 tab 04/03/19 The following prescriptions were given: Folic Acid 1 mg PO DAILY #30 tab Transmission Status: Pending to [facility] #30 Multivitamins,Therapeutic [Multivitamin] 1 tab PO DAILYCM #30 tab Transmission Status: Pending to [facility] #30 Thiamine Mononitrate (Vit B1) [Vitamin B-1] 100 mg PO DAILY #30 tab Transmission Status: Pending to [facility] #30 Primary Care Physician: Abdullahi Hope III, MD [Primary Care Provider] - Please follow up with your Primary Care Physician in: Please follow-up within 3- 5 days to review admission. Test Results: Test results from this visit will be discussed in further detail at your follow- up appointment, if applicable. Please Follow Up With: Abdullahi Hpoe III, MD Proposed Discharge Date: 04/03/19
--- NOTE | 2019-04-03 08:53 | DS.PCM_ITS ---
Discharge Date and Diagnosis Date of Admission: 03/31/19 Date of Discharge: 04/03/19 - Primary Discharge Diagnosis Active and Suspected Problems 1. Acute EtOH Withdrawal 2. Hyponatremia, acute on chronic 3. Elevated LFTs, suspected secondary to Alcohol abuse 4. Hypertension 5. Tobacco Abuse 6. GERD - Secondary Discharge Diagnosis Chronic Problems Alcohol abuse (Chronic) Tobacco use (Chronic) GERD (gastroesophageal reflux disease) (Chronic) Hypertension (Chronic) Hospital Course and Treatment Operations: None Procedures: None Summary of Care Provided: The patient is a 53 y/o M w/ PMHx: HTN, Tobacco use, Chronic back pain w/ radiculopathy, Cannabis usage, Alcohol abuse (>12 beers daily), GERD who presented to the [facility] ED on 03/31/19 with history of losing his job this past October and since then has increased his beer intake, previously 5-6 beers each night now up to well past 12 beers daily, attempting to decrease his alcohol intake over the last 2 to 3 days unsuccessfully with significant onset nausea, tremors, agitation, tactile disturbances with last drink 1 beer, 12 ounce approximately 1 hour prior to arrival. Admitted to [place], routine of labs obtained in the ED with noted sodium 125, chloride 94, BUN/creatinine 4/0.61, glucose 116, AST/ALT 328/209, alk phos 158 lipase 353, alcohol level 282, urine tox screen with positive cannabis, initiated on IV phenobarbital taper with 60 mg IV every 6 hours x24 hours with then transition to 60 mg IV every 8 hours x 24 hours and then transition to 60 mg IV twice daily with also as needed Seroquel, Catapres, Bentyl, Vistaril, IV fluids, IV antiemetics, Tylenol as needed for pain. Mag and phos normal levels. Patient 04/01/2019 into 04/02/2019 a.m. with difficulty overnight with increased withdrawal symptoms, intermittent difficulty sleeping and vivid dreams with also tactile hallucinations however this improved through the morning especially with breakthrough CIWA. 04/03/19 improved overnight, eager for discharge. Discussed at length and given patient improvement, good follow-up plan in place will discharge to home. Strongly again encouraged home environment be completely devoid of EtOH which he notes understanding. During admission noted hyponatremia, acute on chronic w/ admission sodium 125, likely chronic component with beer potomania, gently hydrated given dehydrated appearance upon presentation, repeat CMP 04/01/19 with Na 129. Also, admission AST/ALT 328/209, likely related with his acute alcohol intake, gently hydrated, initiated alcohol withdrawal protocol as noted, trending CMP w/ noted 04/01/19 T Bili 1.30, AST/ALT 224/181, Alk phos 154, patient declined liver ultrasound and discussed that alcohol intake could likely be the etiology, also noted recent HIV and hepatitis testing which was unremarkable and notes that he does obtain this routinely. During admission, patient was continued on home regimen including Norvasc, increased patient losartan temporarily, given acute presentation and history of beer potomania held hydrochlorothiazide, given provement resumed upon discharge however if recurrent concerns may need to consider alternate regimen. During admission strongly encourage tobacco cessation and offered nicotine replacement upon discharge but patient declined. - Physical Exam Vitals/I&O's: Vital Signs Temp Pulse Resp BP Pulse Ox 98.2 F 94 16 150/100 H 97 04/03/19 07:53 04/03/19 07:53 04/03/19 07:53 04/03/19 07:53 04/03/19 07:53 Oxygen Delivery Method Room Air Weight: 164 lb 0.383 oz Body Mass Index (BMI) 22.8 Intake and Output for Last 24 Hours 04/01/19 04/02/19 04/03/19 23:59 23:59 23:59 Intake Total 300 / 300 Balance 300 / 300 Laboratory Results 04/02/19 16:31: POC Glucose 110 Current Medications Acetaminophen (Tylenol) 500 mg PO Q4H PRN PRN PRN Reason: Temp > 100.4 F Al Hydroxide/Mg Hydroxide (Mylanta Ii) 30 ml PO Q6H PRN PRN PRN Reason: dyspesia Albuterol Sulfate (Ventolin Aerosols) 2.5 mg INHALATION Q2H PRN PRN PRN Reason: Shortness of Breath/Wheezing Amlodipine Besylate (Norvasc) 10 mg PO DAILY [facility] Last Admin: 04/02/19 11:41 Dose: 10 mg Documented by: Bisacodyl (Dulcolax) 10 mg RECTAL DAILY PRN PRN Reason: Constipation Dicyclomine HCl (Bentyl) 20 mg PO Q6H PRN PRN PRN Reason: abdominal discomfort Last Admin: 04/03/19 07:19 Dose: 20 mg Documented by: Glucagon () 1 mg IM .X1 PRN PRN Reason: Hypoglycemia Guaifenesin (Robitussin) 20 ml PO Q4H PRN PRN PRN Reason: COUGH Hydralazine HCl (Apresoline Iv) 10 mg IV Q4H PRN PRN PRN Reason: SBP > 160 Last Admin: 04/01/19 23:21 Dose: 10 mg Documented by: Hydroxyzine Pamoate (Vistaril Pamoate Capsule) 50 mg PO Q6H PRN PRN PRN Reason: Mild Anxiety (score 1/3) Sodium Chloride () 250 mls @ 15 mls/hr IV .[id number] PRN PRN Reason: Saline Flush Sodium Chloride () 250 mls @ 15 mls/hr IV .[id number] PRN PRN Reason: Additional IVPB Infusion Dextrose (Dextrose 10%-Water) 250 mls @ 999 mls/hr IV .Q16M PRN; Protocol PRN Reason: HYPOGLYCEMIA Ibuprofen (Motrin) 600 mg PO Q8H PRN PRN PRN Reason: Pain Score 1-5/10 Last Admin: 04/01/19 02:57 Dose: 600 mg Documented by: Loperamide HCl (Imodium) 2 - 4 mg PO UD PRN PRN Reason: LOOSE STOOLS Last Admin: 04/03/19 04:47 Dose: 2 mg Documented by: Lorazepam (Ativan) 2 mg IV X1 PRN PRN Reason: Seizure Lorazepam (Ativan) 2 mg PO Q2H PRN PRN; Protocol PRN Reason: CIWA score > 8 but <15 Last Admin: 04/02/19 16:41 Dose: 2 mg Documented by: Lorazepam (Ativan) 2 mg PO UD PRN; Protocol PRN Reason: CIWA score >/=15. Lorazepam (Ativan) 2 mg IV Q2H PRN PRN; Protocol PRN Reason: CIWA score > 8 but <15 Lorazepam (Ativan) 2 mg IV UD PRN; Protocol PRN Reason: CIWA score >/=15. Last Admin: 03/31/19 17:13 Dose: 2 mg Documented by: Losartan Potassium (Cozaar) 100 mg PO DAILY [facility] Last Admin: 04/02/19 11:41 Dose: 100 mg Documented by: Methocarbamol (Methocarbamol) 750 mg PO Q6H PRN PRN PRN Reason: Muscle Aches Last Admin: 03/31/19 22:28 Dose: 750 mg Documented by: Multivitamins (Multivitamin) 1 tablet PO DAILYCM [facility] Last Admin: 04/02/19 08:01 Dose: 1 tablet Documented by: Nicotine (Nicoderm Cq (Pbkc)) 21 mg TRANSDERM. DAILY [facility] Last Admin: 04/02/19 11:41 Dose: 21 mg Documented by: Nutritional Formula (Lactose Free) (Ensure Enlive) 120 ml PO 4X/DAY [facility] Last Admin: 04/02/19 20:40 Dose: Not Given Documented by: Ondansetron HCl (Zofran Odt) 4 mg PO Q6H PRN PRN PRN Reason: NAUSEA Last Admin: 04/02/19 16:42 Dose: 4 mg Documented by: Pantoprazole Sodium (Protonix) 20 mg PO DAILY [facility] Last Admin: 04/02/19 11:41 Dose: 20 mg Documented by: Phenobarbital (Phenobarbital) 60 mg IV Q12H [facility] Stop: 04/03/19 16:01 Last Admin: 04/03/19 04:41 Dose: 60 mg Documented by: Senna (Senokot) 1 tablet PO QHS PRN PRN Reason: Constipation Sodium Chloride () 10 - 40 ml IV UD PRN PRN Reason: SALINE FLUSH Last Admin: 04/02/19 16:45 Dose: 10 ml Documented by: Throat Lozenges (Cepacol Sore Throat Lozenge) 1 lozenge MUCOUS MEM Q2H PRN PRN PRN Reason: Sore throat or cough Trazodone HCl (Desyrel) 50 mg PO QHS [facility] Last Admin: 04/02/19 20:41 Dose: 50 mg Documented by: Discharge Activity: Return to Normal Activity May resume sexual activity in: No Restrictions Weight Bearing Status: Weight bearing as tolerated Call your doctor if you observe: Fever of 101 or Higher, Inability to urinate, Inability to have a bowel movement, Shortness of breath, Dizziness, Fainting spells, Chest pain, Uncontrolled pain Home Medications: Medications to take at Discharge Amlodipine [Norvasc] 10 mg PO DAILY #30 tablet 04/30/13 Hydrochlorothiazide [Hctz] 12.5 mg PO DAILY 08/17/17 Losartan Potassium 50 mg PO DAILY 08/17/17 Folic Acid 1 mg PO DAILY #30 tab 04/03/19 Multivitamins,Therapeutic [Multivitamin] 1 tab PO DAILYCM #30 tab 04/03/19 Thiamine Mononitrate (Vit B1) [Vitamin B-1] 100 mg PO DAILY #30 tab 04/03/19 Following Prescrptions Were Given to Patient: Folic Acid 1 mg PO DAILY #30 tab Transmission Status: Received by [facility] #30 Multivitamins,Therapeutic [Multivitamin] 1 tab PO DAILYCM #30 tab Transmission Status: Received by [facility] #30 Thiamine Mononitrate (Vit B1) [Vitamin B-1] 100 mg PO DAILY #30 tab Transmission Status: Received by [facility] #30 Primary Care Physician: Abdullahi Hope III, MD [Primary Care Provider] - Please follow up with your Primary Care Physician in: Please follow-up within 3- 5 days to review admission. Please Follow Up With: Abdullahi Hope III, MD Patient Instructions: Understanding Alcoholism, Alcoholism: Myths and Facts, The Impact of Alcoholism, Alcoholism: Getting Help, Signs of Addiction: Social Use, Signs of Addiction: Problem Use, Signs of Addiction: Becoming Addicted, Addiction: Ask Yourself These Questions Disposition: Home Minutes spent on discharge:: 35 Patient Condition:: Fair Medical Necessity - Tobacco Use Smoking Status: Current every day smoker - Patient currently up to 2 pack/day cigarette tobacco usage starting when he was 15 years old but increasing over the last year. Tobacco Use: Cigarettes Meaningful Use Info Meaningful Use Diagnoses (Choose all that apply): None applicable Code Visit Inpatient E&M: 34110 Disch Hosp
[2019-04-03] MEDS: Pantoprazole Sodium 20 MG Tablet PO (09:33)
[2019-04-03] MEDS: amLODIPine 10 MG Tablet PO (09:33)
[2019-04-03] MEDS: Multivitamins,Therapeutic Tablet 1 TABLET PO (09:33)
[2019-04-03] MEDS: Losartan Potassium 100 MG Tablet PO (09:33)
== END 2019-04-03 09:48 | disposition home or self-care (01) | DRG 897 ==
LOC: ED 12:06 → MS3 12:12
PROVIDERS: Admitting Provider Family Medicine; Emergency Provider Emergency Medicine; PCP Family Medicine; Visit Provider Family Medicine
DX: F10.230 Alcohol dependence with withdrawal, uncomplicated (principal); E87.1 Hypo-osmolality and hyponatremia; Y90.8 Blood alcohol level of 240 mg/100 ml or more; F17.210 Nicotine dependence, cigarettes, uncomplicated; I10 Essential (primary) hypertension; M54.9 Dorsalgia, unspecified; G89.29 Other chronic pain; K21.9 Gastro-esophageal reflux disease without esophagitis
CPT/HCPCS: 36415; 71046; 80053; 80307; 80320; 81001; 82962; 83690; 83735; 84100; 85025; 93005; 94640; 97802; 99251; 99284; 99406; J7030; A4216; G0463; G0480

== ENCOUNTER 2019-04-14 17:43 | Emergency (ER) | payer MEDICAID, SELFPAY ==
[2019-03-31 12:52] VITALS: BMI 22.8
[2019-04-14 17:45] VITALS: BP 154/113; PULSE 114; RESP 17; TEMP 36.7; O2SAT 96; BMI 23.5
--- NOTE | 2019-04-14 18:08 | CT_ITS ---
We are attempting to reach an attending provider to discuss findings. An addendum with communication details will be sent when the communication is complete. STUDY: CT BRAIN WITHOUT CONTRAST REASON FOR EXAM: Male, 53 years old. FALL. [place] AND SWELLING RIGHT EYE RADIATION DOSAGE (If Supplied By Facility): CTDIvol = ( 44.99 ) mGy, DLP = ( 779.24 ) mGycm TECHNIQUE: Transaxial CT imaging of the brain was performed without administration of intravenous contrast material. Individualized dose optimization techniques were used for this CT. COMPARISON: No relevant priors. FINDINGS: There is soft tissue swelling of the right periorbital region. There is a right supraorbital scalp hematoma . Normal calvarium. The lateral ventricles are normal in size and are symmetric. The third and fourth ventricles are midline. There is an ovoid hyperdensity interposed between the right posterior brain stem and adjacent right cerebellar peduncle measuring 1.4 x 0.9 cm. Normal white matter tracts of the cerebral hemispheres. Normal basal ganglia and thalami. Normal brainstem. Normal cerebellum. There are no findings of an acute ischemic infarction. There is mucosal thickening of the left and right maxillary sinuses and multiple ethmoid air cells bilaterally. CT/Brain/Head without Contrast IMPRESSION: Ovoid hyperdensity interposed between the right posterior brain stem and adjacent right cerebellar peduncle measuring 1.4 x 0.9 cm. The differential would include meningioma, malignant process, and less likely hemorrhage. MRI is recommended for further evaluation of this finding. There is soft tissue swelling of the right periorbital region. There is a right supraorbital scalp hematoma. Electronically Signed: Librado Claire MD at 19:24 EST , Service support ,
--- NOTE | 2019-04-14 18:08 | CT_ITS ---
STUDY: CT FACIAL BONES WITHOUT CONTRAST REASON FOR EXAM: Male, 53 years old. FALL. BRUISE AND SWELLING RIGHT EYE RADIATION DOSAGE (If Supplied By Facility): CTDIvol = ( 29.38 ) mGy, DLP = ( 687.03 ) mGycm TECHNIQUE: The patient was scanned in a multi detector CT scanner. Sagittal and coronal images were reconstructed. Individualized dose optimization techniques were used for this CT. COMPARISON: None. FINDINGS: There is right periorbital soft tissue swelling as well as a small right supraorbital scalp hematoma. Normal orbital moise and orbital contents. There is a nondisplaced transverse fracture the tips of the nasal bones. The anterior nasal spine appears intact. Normal facial bones. There is mucosal thickening of the maxillary sinuses, frontal sinuses, and multiple ethmoid air cells bilaterally. Multiple carious teeth are noted. Multiple apical dental cysts. CT/Sinus/Facial Bone IMPRESSION: Nondisplaced transverse nasal bone fracture. Right periorbital soft tissue swelling with a small right supraorbital scalp hematoma. Multiple carious teeth are noted. There are multiple apical dental cysts. Electronically Signed: Librado Claire MD at 19:35 EST , Service support ,
[2019-04-14 19:10] LABS: Absolute Neutrophil Count 10.3 X10^3/uL (2.0-7.7); Basophil# 0.06 X10^3/uL; Basophil% 0.5 % (0-1); Eosinophil# 0.03 X10^3/uL; Eosinophils% 0.2 % (0-5); Hematocrit 41.3 % (40-54); Hemoglobin 15.2 g/dL (13.0-16.5); Lymphocyte % 12.5 % (19-41); Mean Corp Hgb Conc 36.8 g/dL (32-36); Mean Corpuscular Hgb 33.9 pg (27.0-32.0); Mean Platelet Vol. 9.3 fl (6.2-12.0); Monocyte# 0.83 X10^3/uL; Monocyte% 6.5 % (0-10); NRBC Flagged by Analyzer 0 % (0-5); Neutrophil # 10.27 X10^3/uL (2.7-7.7); Neutrophil % 79.9 % (47-70); Platelet Count 296 K/mm3 (150-450); RBC Distribution Width CV 12.4 % (11.6-14.6); RBC Distribution Width SD 41.7 fl (35.1-43.9); Red Blood Count 4.49 M/mm3 (4.6-6.2); White Blood Count 12.8 K/mm3 (4.4-11.0)
[2019-04-14 19:22] LABS: Amphetamine Urine VISTA NEGATIVE (<1000 ng/mL); Barbiturate Urine VISTA POSITIVE (< 200 ng/mL); Benzodiazepine Urine VISTA NEGATIVE (< 200 ng/mL); Cocaine Urine VISTA NEGATIVE (< 300 ng/mL); Ecstacy Urine VISTA NEGATIVE (< 500 ng/mL); Methadone Urine VISTA NEGATIVE (< 300 ng/mL); PCP Urine VISTA NEGATIVE (< 25 ng/mL); THC Urine VISTA POSITIVE (< 50 ng/mL); Vista UDS pH Range 7
[2019-04-14 19:28] LABS: ALB/GLOB Ratio 0.9 RATIO (0.9-2.4); AST(SGOT) 163 U/L (15-37); Alanine Aminotransfer ALT/SGPT 133 U/L (16-61); Albumin, Serum 3.8 g/dL (3.2-5.0); Alkaline Phosphatase 143 U/L (45-117); Anion Gap 12 (5-15); BUN 9 mg/dL (7-18); BUN/Creat Ratio 12.5 RATIO (10-20); Chloride 92 mmol/L (98-107); Creatinine, Serum 0.72 mg/dL (0.70-1.30); EST Glomerular Filtration Rate 121 mL/min (>60); Est Glom Filt Rate - Afr Amer 146 mL/min (>60); Estimated Creatinine Clearance 124.92 ml/min; Globulin 4.2 g/dL (2.2-4.2); Glucose 77 mg/dL (74-106); Potassium 3.8 mmol/L (3.5-5.1); Sodium Level 127 mmol/L (136-145)
[2019-04-14 19:55] VITALS: BP 163/100; PULSE 87; RESP 16; O2SAT 98
--- NOTE | 2019-04-14 20:06 | ED.VISSUMM ---
- ER Visit Summary Date of Service: 04/14/19 Chief Complaint: Alcohol abuse, fall History of Present Illness: The patient is a 53 M who presents today requesting detox from alcohol. He states he was just admitted here last week and after 2 days at home he started drinking again. He drinks 8-9 beers a day but then started drinking liquor as well he states that his last drink was earlier today. He did fall yesterday when he was intoxicated. He had the right side of his head. He has a large right-sided periorbital hematoma. He states that his vision is normal out of the right eye. He denies any neck pain. Physical Examination: Vital signs are reviewed. HEENT exam reveals a large right-sided periorbital hematoma. His pupils are equally round and reactive to light. He has moist mucous membranes. Heart is tachycardic and regular rhythm without murmurs. Lungs are clear to auscultation bilaterally. Abdomen soft nontender. Skin exam reveals no rashes. His GCS is 15. He has normal strength and sensation bilaterally. Test Results: Hemoglobin normal. White blood cell count 12.8, sodium 127, [place] 92. His alkaline phosphatase is 143, ALT 133, AST 163. CAT scan of the face reveals a nasal bone fracture. The CAT scan of his head shows a hyperdensity near the brainstem which radiologist is concerned for either a meningioma, bleeding metastases or possibly a hemorrhage. Emergency Department Course and Treatment: There is concerned about this hyperdensity on the patient's CAT scan. Since he does have a fall in radiology states it could possibly hemorrhage I feel he needs transferred to a further facility. He requested [facility] but they are full. I tried [facility] in [place]. I initially spoke to the hospitalist who was reluctant. I spoke with their ER doctor for a trauma transfer and he accept the patient. Treatment Plan: [] Disposition: Transfer Impression: Right posterior brainstem hyperdensity, concern for meningioma/malignancy/hemorrhage Nasal bone fracture Alcohol dependence This note was generated with [employer] dictation software. It may contain incorrect words, spelling, and punctuation that were not noted in review of the chart prior to signing ED Disposition - Plan for ED Patient: Referrals: Abdullahi Hope III, MD [Primary Care Provider] -
[2019-04-14 20:55] VITALS: BP 170/99; PULSE 78; RESP 16; O2SAT 98
[2019-04-14 23:00] VITALS: BP 167/104; PULSE 112; RESP 17; O2SAT 95
== END 2019-04-14 23:15 | disposition short-term general hospital (02) ==
PROVIDERS: Emergency Provider Emergency Medicine; PCP Family Medicine
DX: F10.20 Alcohol dependence, uncomplicated (principal); S02.2XXA Fracture of nasal bones, initial encounter for closed fracture; S00.03XA Contusion of scalp, initial encounter; W18.00XA Striking against unspecified object with subsequent fall, initial encounter; Y93.9 Activity, unspecified; Y92.9 Unspecified place or not applicable; Y99.9 Unspecified external cause status; M85.88 Other specified disorders of bone density and structure, other site; I10 Essential (primary) hypertension; Y90.9 Presence of alcohol in blood, level not specified
CPT/HCPCS: 70450; 70486; 80053; 80307; 80320; 85025; 99285; A4216; G0480

== ENCOUNTER 2019-06-08 18:05 | Inpatient (IN) | payer MEDICAID, SELFPAY ==
[2019-06-08 18:06] VITALS: BP 153/99; PULSE 104; RESP 18; TEMP 36.3; O2SAT 98; BMI 23.1
--- NOTE | 2019-06-08 18:24 | ED.DCSUM_ITS ---
History of Present Illness Chief Complaint: ETOH Intox Detail of Chief Complaint: Requesting detox Informant: Patient Narrative: Patient presents requesting assistance with detox from alcohol. He admits to being an alcoholic. He states he drinks between 12 and 16 beers a day. He went through the detox program here at the hospital in March and states he was sober for about 2 weeks at that time. He was seen back again in April requesting detox but had fallen and was found to have some abnormalities on his CT scan was transferred to [facility] in [place]. Patient denies any recent falls. He states of the past week has been trying to taper his alcohol use but becomes very symptomatic. He has never had a seizure with alcohol withdrawal in the past. - Past Medical History (1) Alcohol abuse Status: Chronic (2) GERD (gastroesophageal reflux disease) Status: Chronic (3) Hypertension Status: Chronic Past Medical History - Allergies and Home Meds Allergies/Adverse Reactions: Allergies lisinopril Allergy (Verified 06/08/19 18:09) Angioedema aspirin Adverse Reaction (Verified 06/08/19 18:09) HEARTBURN codeine Adverse Reaction (Verified 06/08/19 18:09) NIGHTMARES Primary Care Physician: Abdullahi Hope III, MD [Primary Care Provider] - Prior records reviewed: Yes Surgical History: - - L testicle removal s/p torsion at 18 y/o, T+A. Smoking Status: Current every day smoker Alcohol: Heavy Drugs: Marijuana - Family History Maternal Family History: Reports: - - Patient notes a maternal family history of hypertension, heart disease. Paternal Family History: Reports: - - Patient notes a paternal family history of hypertension, heart disease and diabetes. Review of Systems General: Denies: Chills, Fever Eyes: Denies: Visual changes - bilaterally ENT: Denies: Bilateral ear pain Cardiovascular: Denies: Chest pain Respiratory: Denies: Dyspnea, Cough Gastrointestinal: Denies: Abdominal pain, Nausea, Vomiting, Diarrhea Genitourinary: Denies: Dysuria Musculoskeletal: Denies: Swelling, Extremity Pain Skin: Denies: Rash Neurological: Denies: Headache Hematologic: Denies: Easy bruising Allergy: Denies: Uticaria Physical Exam Vital Signs/Narrative: Vital Signs Temp Pulse Resp BP Pulse Ox 06/08/19 18:06 97.3 F L 104 H 18 153/99 H 98 Inital Vital Signs reviewed: Yes General: Well nourished, Well developed Head: Normocephalic ENT: Moist mucous membranes Neck: Supple Cardiovascular: Regular rate, Regular rhythm Respiratory: No distress, CTA bilaterally Abdomen: Soft, Nontender Back: Nontender Extremities: Nontender Skin: Normal color, No rash Neurological: Alert, Oriented x3 Psychological: Normal affect Diagnostic/Tx/Re-eval Laboratory Results 06/08/19 06/08/19 06/08/19 18:40 18:40 18:40 WBC 5.3 RBC 4.18 L Hgb 13.8 Hct 39.5 L MCV 94.5 H MCH 33.0 H MCHC 34.9 RDW Std Deviation 46.6 H RDW Coeff of Wen 13.6 Plt Count 178 MPV 9.9 Immature Gran % (Auto) 0.400 Neut % (Auto) 59.7 Lymph % (Auto) 23.9 [place] % (Auto) 12.4 H Eos % (Auto) 2.8 Baso % (Auto) 0.8 Absolute Neuts (auto) 3.2 Absolute Lymphs (auto) 1.27 Nucleated RBC % 0 PT 12.2 INR 1.0 Sodium 127 L Potassium 5.0 Chloride 97 L Carbon Dioxide 23.0 Anion Gap 7 BUN 4 L Creatinine 0.56 L Estim Creat Clear Calc 160.18 Est GFR (MDRD) Af Amer 196 Est GFR (MDRD) Non-Af 162 BUN/Creatinine Ratio 7.2 L Glucose 99 Calcium 8.6 Total Bilirubin 0.40 AST 179 H ALT 106 H Alkaline Phosphatase 127 H Total Protein 7.5 Albumin 3.6 Globulin 3.9 Albumin/Globulin Ratio 0.9 Ur Drug Screen Comment Ethyl Alcohol 06/08/19 06/08/19 18:40 19:30 WBC RBC Hgb Hct MCV MCH MCHC RDW Std Deviation RDW Coeff of Wen Plt Count MPV Immature Gran % (Auto) Neut % (Auto) Lymph % (Auto) [place] % (Auto) Eos % (Auto) Baso % (Auto) Absolute Neuts (auto) Absolute Lymphs (auto) Nucleated RBC % PT INR Sodium Potassium Chloride Carbon Dioxide Anion Gap BUN Creatinine Estim Creat Clear Calc Est GFR (MDRD) Af Amer Est GFR (MDRD) Non-Af BUN/Creatinine Ratio Glucose Calcium Total Bilirubin AST ALT Alkaline Phosphatase Total Protein Albumin Globulin Albumin/Globulin Ratio Ur Drug Screen Comment Ethyl Alcohol 299.0 - Medical Decision Making Blood work is obtained. Urine is still pending at this time. Patient expresses desire for detox. I will speak with hospitalist regarding admission. ED Disposition - Plan for ED Patient: Disposition: Acute Care Hospital [facility] Diagnosis: Alcoholism Referrals: Abdullahi Hope III, MD [Primary Care Provider] -
[2019-06-08 18:57] LABS: Absolute Lymphocyte Count 1.27 X10^3/uL (0.83-4.51); Absolute Neutrophil Count 3.2 X10^3/uL (2.0-7.7); Basophil# 0.04 X10^3/uL; Basophil% 0.8 % (0-1); Eosinophil# 0.15 X10^3/uL; Eosinophils% 2.8 % (0-5); Hematocrit 39.5 % (40-54); Hemoglobin 13.8 g/dL (13.0-16.5); Lymphocyte # 1.27 X10^3/ul (4.0); Lymphocyte % 23.9 % (19-41); Mean Corp Hgb Conc 34.9 g/dL (32-36); Mean Corpuscular Volume 94.5 fL (80-94); Mean Platelet Vol. 9.9 fl (6.2-12.0); Monocyte# 0.66 X10^3/uL; Monocyte% 12.4 % (0-10); NRBC Flagged by Analyzer 0 % (0-5); Neutrophil # 3.17 X10^3/uL (2.7-7.7); Neutrophil % 59.7 % (47-70); Platelet Count 178 K/mm3 (150-450); RBC Distribution Width CV 13.6 % (11.6-14.6); RBC Distribution Width SD 46.6 fl (35.1-43.9); Red Blood Count 4.18 M/mm3 (4.6-6.2); White Blood Count 5.3 K/mm3 (4.4-11.0)
[2019-06-08 19:03] LABS: Prothrombin Time (Protime)PT. 12.2 SECONDS (11.7-14.9)
[2019-06-08 20:00] LABS: ALB/GLOB Ratio 0.9 RATIO (0.9-2.4); AST(SGOT) 179 U/L (15-37); Alanine Aminotransfer ALT/SGPT 106 U/L (16-61); Albumin, Serum 3.6 g/dL (3.2-5.0); Alkaline Phosphatase 127 U/L (45-117); Anion Gap 7 (5-15); BUN 4 mg/dL (7-18); BUN/Creat Ratio 7.2 RATIO (10-20); Calcium,Total 8.6 mg/dL (8.5-10.1); Chloride 97 mmol/L (98-107); Creatinine, Serum 0.56 mg/dL (0.70-1.30); EST Glomerular Filtration Rate 162 mL/min (>60); Est Glom Filt Rate - Afr Amer 196 mL/min (>60); Estimated Creatinine Clearance 160.18 ml/min; Globulin 3.9 g/dL (2.2-4.2); Glucose 99 mg/dL (74-106); Protein, Total 7.5 g/dL (6.4-8.2); Sodium Level 127 mmol/L (136-145)
[2019-06-08 20:18] LABS: Amphetamine Urine VISTA NEGATIVE (<1000 ng/mL); Barbiturate Urine VISTA NEGATIVE (< 200 ng/mL); Benzodiazepine Urine VISTA NEGATIVE (< 200 ng/mL); Cocaine Urine VISTA NEGATIVE (< 300 ng/mL); Ecstacy Urine VISTA NEGATIVE (< 500 ng/mL); Methadone Urine VISTA NEGATIVE (< 300 ng/mL); PCP Urine VISTA NEGATIVE (< 25 ng/mL); THC Urine VISTA POSITIVE (< 50 ng/mL); Vista UDS pH Range 6
--- NOTE | 2019-06-08 20:19 | HP.PCM_ITS ---
Problem List (1) Alcoholism Status: Acute (2) Alcohol abuse Status: Chronic (3) GERD (gastroesophageal reflux disease) Status: Chronic Qualifiers: Esophagitis presence: esophagitis presence not specified Qualified Code(s): K21.9 - Gastro-esophageal reflux disease without esophagitis (4) Hypertension Status: Chronic Qualifiers: Hypertension type: essential hypertension Qualified Code(s): I10 - Essential (primary) hypertension (5) Tobacco use Status: Chronic History of Present Illness Date of Admission: 06/08/19 Chief Complaint: Acute EtOH Withdrawal, Detox. The patient is a 53 y/o M w/ PMHx: GERD, Tobacco use, Chronic COPD, HTN, Chronic back pain w/ radiculopathy, Cannabis use, EtOH use (12 pack beer daily) who presents to the [facility] ED on 06/08/19 with history of usual intake between 12 and 16 beers daily previously admitted 03/2019 for detox program noting to have been sober approximately 2 weeks at that time however returned in April to request detox again and unfortunately was following a fall with abnormal CT scan at that time with transition to [facility] for evaluation with self attempts over the last week to decrease his alcohol intake but notes onset of alcohol withdrawal symptoms. He notes that last intake was earlier in the afternoon as he has been attempting to cut back with onset of nausea, tremors, agitation, tactile disturbances. Patient interested in attaining sober status and notes that his significant other has remained sober since his last detox. Work-up in the ED included T 97.3, heart rate 104, BP 153/99, respiratory rate 18, 98% on room air, CBC with WC 5.3, hemoglobin 13.8, platelet 178 with no market left shift, unremarkable coags, CMP with sodium 127, chloride 97, BUN/creatinine 4/0.56, AST/ALT 179/106, alk phos 127, UDS with positive cannabis, ethyl alcohol 299. Past Medical History Past Medical History (Chronic Problems): Chronic Problems Alcohol abuse (Chronic) Tobacco use (Chronic) GERD (gastroesophageal reflux disease) (Chronic) Hypertension (Chronic) Allergies lisinopril Allergy (Verified 06/08/19 18:09) Angioedema aspirin Adverse Reaction (Verified 06/08/19 18:09) HEARTBURN codeine Adverse Reaction (Verified 06/08/19 18:09) NIGHTMARES Home Medications: Ambulatory Orders Medication Instructions Recorded Amlodipine [Norvasc] 10 mg PO DAILY #30 tablet 04/30/13 Losartan Potassium 50 mg PO DAILY 08/17/17 Folic Acid 1 mg PO DAILY #30 tab 04/03/19 Multivitamins,Therapeutic 1 tab PO DAILYCM #30 tab 04/03/19 [Multivitamin] Thiamine Mononitrate (Vit B1) 100 mg PO DAILY #30 tab 04/03/19 [Vitamin B-1] Surgical History: - - L testicle removal s/p torsion at 18 y/o, T+A. Psychiatric History: No pertinent psych hx Lives: Spouse/ Significant Other Smoking Status: Current every day smoker - Patient currently up to 2 pack/day cigarette tobacco usage starting when he was 15 years old but increasing over the last year. Tobacco Use: Cigarettes Alcohol: Heavy - Patient currently up to 2 pack/day cigarette tobacco usage starting when he was 15 years old but increasing over the last year. Drugs: Marijuana - *Family History Maternal History Items: - - Patient notes a maternal family history of hypertension, heart disease. Paternal History Items: - - Patient notes a paternal family history of hypertension, heart disease and diabetes. Review of Systems Constitutional: Reports: Anorexia, Malaise, Weakness, Fatigue. Denies: Chills, Fever, Weight Change HEENT: Denies: Head Aches, Sinus Congestion, Sinus Drainage Cardiovascular: Denies: Chest Pain, Palpitations Respiratory: Denies: Cough, Shortness of breath at rest, Sputum production Gastrointestinal: Reports: Nausea. Denies: Abdominal Pain, Vomiting Genitourinary: Denies: Dysuria Musculoskeletal: Denies: Joint Pain, Joint Tenderness Skin: Denies: Rash, Wounds Neurological: Reports: Tremor. Denies: Focal weakness, Numbness, Tingling Psychiatric: Reports: Anxiety. Denies: Depression, Homicidal Ideations, Suicidal Ideations Hematologic/ Lymphatic: Denies: Easy Bruising, Easy Bleeding VTE Information - Inpt Only VTE Present on Admission: No VTE Mechan Device Prophylaxis: None VTE Pharm Prophylaxis ordered?: No Reason prophylaxis not ordered:: Treatment Not Indicated Patient Problems: Active and Suspected Problems Alcoholism (Acute) Subjective: Patient seated upright in the ED bed, fatigued but also agitated, eager for sobriety. Objective: Physical Examination: General: awake, alert, oriented x 3 and cooperative, seated upright in the ED bed, mild tremors, mildly anxious. Skin: normal color, turgor, no icterus, cyanosis. HEENT: AT/NC, EOMI, PERRLA, moderately dry MM, no carotid bruits or JVD noted. Lungs: CTA bilaterally, moderate effort, moderate decrease BL bases, no rales, ronchi or wheezing. Heart: Mildly tachycardic with regular rhythm; no gallop, rub audible. Abdomen: soft, NTTP, ND, normal BS, mild HM. Extremities: no cyanosis, clubbing, or edema. Neurological: patient awake, alert, oriented x 3; cognitive function suspect near baseline intact; pupils equally reactive to light and accomodation; cranial nerves II-XII grossly normal, moving all 4 extremities, no focal deficits, strength mildly globally decreased secondary to acute presentation, mild tremors present. Psychiatric: affect appears fatigued but also mildly agitated, no acute evidence of depressive or anxiety feelings. - Physical Exam Vitals/I&O's: Vital Signs Temp Pulse Resp BP Pulse Ox 97.3 F L 104 H 18 153/99 H 98 06/08/19 18:06 06/08/19 18:06 06/08/19 18:06 06/08/19 18:06 06/08/19 18:06 Oxygen Delivery Method Room Air Weight: 165 lb 9.074 oz Body Mass Index (BMI) 23.1 Laboratory Results 06/08/19 18:40: WBC 5.3, RBC 4.18 L, Hgb 13.8, Hct 39.5 L, MCV 94.5 H, MCH 33.0 H, MCHC 34.9, RDW Std Deviation 46.6 H, RDW Coeff of Wen 13.6, Plt Count 178, MPV 9.9, Immature Gran % (Auto) 0.400, Neut % (Auto) 59.7, Lymph % (Auto) 23.9, [place] % (Auto) 12.4 H, Eos % (Auto) 2.8, Baso % (Auto) 0.8, Absolute Neuts (auto) 3.2, Absolute Lymphs (auto) 1.27, Nucleated RBC % 0 06/08/19 18:40: PT 12.2, INR 1.0 06/08/19 18:40: Sodium 127 L, Potassium 5.0, Chloride 97 L, Carbon Dioxide 23.0, Anion Gap 7, BUN 4 L, Creatinine 0.56 L, Estim Creat Clear Calc 160.18, Est GFR (MDRD) Af Amer 196, Est GFR (MDRD) Non-Af 162, BUN/Creatinine Ratio 7.2 L, Glucose 99, Calcium 8.6, Total Bilirubin 0.40, AST 179 H, ALT 106 H, Alkaline Phosphatase 127 H, Total Protein 7.5, Albumin 3.6, Globulin 3.9, Albumin/Globulin Ratio 0.9 06/08/19 18:40: Ethyl Alcohol 299.0 06/08/19 19:30: Urine Opiates Screen NEGATIVE, Urine Methadone Screen NEGATIVE, Ur Barbiturates Screen NEGATIVE, Ur Phencyclidine Scrn NEGATIVE, Ur Amphetamines Screen NEGATIVE, U Methamphetamin-MDMA NEGATIVE, U Benzodiazepines Scrn NEGATIVE, Urine Cocaine Screen NEGATIVE, U Cannabinoids Screen POSITIVE H, Ur Drug Screen Comment Assessment/Plan All Active Problems Alcohol withdrawal (Acute) Alcoholism (Acute) Angioedema of lips (Acute) The patient is a 53 y/o M w/ PMHx: GERD, Tobacco use, Chronic COPD, HTN, Chronic back pain w/ radiculopathy, Cannabis use, EtOH use (12 pack beer daily) who presents to the [facility] ED on 06/08/19 with history of usual intake between 12 and 16 beers daily previously admitted 03/2019 for detox program noting to have been sober approximately 2 weeks at that time however returned in April to request detox again and unfortunately was following a fall with abnormal CT scan at that time with transition to [facility] for evaluation with self attempts over the last week to decrease his alcohol intake but notes onset of alcohol withdrawal symptoms. 1. Acute EtOH Withdrawal: Will admit to [facility], routine labs obtained in the ED upon presentation and notable for chronically elevated LFTs, alk phos. Given interest in sobriety, will initiate and continue on protocol with taper course of Phenobarbital, scheduled gabapentin for seizure prophylaxis, as needed Catapres, Bentyl, Vistaril, IV fluids, IV antiemetics, Tylenol as needed for pain. Will consult Case management for assistance for transition to next level of rehabilitation care. Mag, phos pending. Maintain on CIWA protocol concurrently. 2. Hyponatremia, acute on chronic: Admission sodium 127, likely chronic component with beer potomania, gently hydrating x 1 L, repeat CMP in a.m. 3. Elevated LFTs: Admission AST/ALT 179/106, initiating alcohol withdrawal protocol as noted, trend CMP. 4. Hypertension: Continue home regimen including Norvasc, losartan, PRN hydralazine. 5. Tobacco Abuse: Encouraged cessation, inpatient consultation per RT, NR if desired. 6. Recent intracranial hemorrhage (cerebral hemorrhage): Patient with history of fall 04/14/[address] head notable for right posterior brainstem hyperdensity concerning for hemorrhage which was transferred to [facility] where patient was maintained in the ICU with neurosurgery consultation and close monitoring. 7. GERD: Maintain on famotidine. 8. DVT prophylaxis: Low risk, ambulation. Inpatient E&M: 52765 Init Hosp L3
[2019-06-08 20:45] VITALS: BP 149/89; PULSE 97; RESP 16; TEMP 36.6; O2SAT 98
[2019-06-08 20:57] VITALS: BMI 22.7
[2019-06-08 21:08] VITALS: BP 136/93; PULSE 93; RESP 18; TEMP 36.8; O2SAT 97
[2019-06-08 21:30] LABS: Magnesium 1.8 mg/dL (1.6-2.6); Phosphorus 3.8 mg/dL (2.5-4.9)
[2019-06-08] MEDS: Lactated Ringers 1,000 ML 125 ML IV (21:49)
[2019-06-08 22:00] VITALS: RESP 18; O2SAT 97
[2019-06-08] MEDS: Phenobarbital 32.4 MG Tablet 64.8 MG PO (22:52)
[2019-06-08] MEDS: Famotidine 20 MG Tablet PO (22:52)
[2019-06-09 02:33] VITALS: BP 148/96; PULSE 105; RESP 18; TEMP 36.8; O2SAT 98
[2019-06-09] MEDS: traZODone 100 MG Tablet PO ×2 (02:36→22:09)
[2019-06-09] MEDS: Phenobarbital 32.4 MG Tablet 64.8 MG PO ×6 (02:37→22:04)
[2019-06-09 06:17] LABS: ALB/GLOB Ratio 1.1 RATIO (0.9-2.4); AST(SGOT) 128 U/L (15-37); Alanine Aminotransfer ALT/SGPT 97 U/L (16-61); Albumin, Serum 3.7 g/dL (3.2-5.0); Alkaline Phosphatase 127 U/L (45-117); Anion Gap 9 (5-15); BUN 3 mg/dL (7-18); BUN/Creat Ratio 6.3 RATIO (10-20); Chloride 97 mmol/L (98-107); Creatinine, Serum 0.48 mg/dL (0.70-1.30); EST Glomerular Filtration Rate 194 mL/min (>60); Est Glom Filt Rate - Afr Amer 234 mL/min (>60); Estimated Creatinine Clearance 184.14 ml/min; Globulin 3.5 g/dL (2.2-4.2); Glucose 108 mg/dL (74-106); Potassium 3.6 mmol/L (3.5-5.1); Protein, Total 7.2 g/dL (6.4-8.2); Sodium Level 129 mmol/L (136-145)
--- NOTE | 2019-06-09 09:43 | CASEMGMT ---
CACHORRO called Jacinda at [facility] and notified her of patient's admission. She will be in to talk with patient today. Tita BEY MSW
[2019-06-09 10:00] VITALS: BP 154/106; PULSE 113; RESP 18; TEMP 37; O2SAT 99
[2019-06-09] MEDS: hydrOXYzine PAM 25 MG Capsule 50 MG PO (10:04)
[2019-06-09] MEDS: Famotidine 20 MG Tablet PO ×2 (10:04→22:03)
[2019-06-09] MEDS: amLODIPine 10 MG Tablet PO (10:04)
[2019-06-09] MEDS: Thiamine Hydrochloride 100 MG Tablet PO (10:04)
[2019-06-09] MEDS: Ondansetron 8 MG Tablet PO (10:04)
[2019-06-09] MEDS: Losartan Potassium 50 MG Tablet PO (10:05)
[2019-06-09] MEDS: Folic Acid 1 MG Tablet PO (10:05)
[2019-06-09] MEDS: Loperamide 2 MG Capsule PO ×3 (10:05→18:41)
[2019-06-09] MEDS: Dicyclomine 10 MG Capsule 20 MG PO (10:05)
--- NOTE | 2019-06-09 11:32 | PN_ITS ---
Patient Problems: Active and Suspected Problems Alcoholism (Acute) Reason for Visit: alcohol withdrawal Subjective: Some resting tremor, restlessness, insomnia, diarrhea. No nausea vomiting. Pt angry that he cannot use a phone. He denies hx of hallucinations or seizure in the past, currently no issues with these either. He went through detox here in April, never followed up with [facility]. Vitals/I&O's: Vital Signs Temp Pulse Resp BP Pulse Ox 98.6 F 113 H 18 154/106 H 99 06/09/19 10:00 06/09/19 10:00 06/09/19 10:00 06/09/19 10:00 06/09/19 10:00 Oxygen Delivery Method Room Air Weight: 163 lb 2.273 oz Body Mass Index (BMI) 22.7 Intake and Output for Last 24 Hours 06/07/19 06/08/19 06/09/19 23:59 23:59 23:59 Intake Total 2270 / 2270 Balance 2270 / 2270 General: Alert, Oriented x3, Cooperative HEENT: Atraumatic, PERRLA, EOMI, Normocephalic Neck: Supple, No JVD, Negative Carotid Bruits Lungs: Clear to auscultation, Normal air movement Cardiovascular: Regular rate, No murmurs Abdomen: Bowel Sounds Present, Soft, Non Tender Extremities: No edema, Capillary Refill Less than 3 Seconds Skin: No rashes, No breakdown Musculoskeletal: No Tenderness to Palpation of Joints or Extremities Neurological: Cranial nerves II-XII grossly intact, - - upper ext fine tremor no asterixis. Psych/Mental Status: Normal Affect, Appropriate Laboratory Results 06/08/19 18:40: WBC 5.3, RBC 4.18 L, Hgb 13.8, Hct 39.5 L, MCV 94.5 H, MCH 33.0 H, MCHC 34.9, RDW Std Deviation 46.6 H, RDW Coeff of Wen 13.6, Plt Count 178, MPV 9.9, Immature Gran % (Auto) 0.400, Neut % (Auto) 59.7, Lymph % (Auto) 23.9, [place] % (Auto) 12.4 H, Eos % (Auto) 2.8, Baso % (Auto) 0.8, Absolute Neuts (auto) 3.2, Absolute Lymphs (auto) 1.27, Nucleated RBC % 0 06/08/19 18:40: PT 12.2, INR 1.0 06/08/19 18:40: Sodium 127 L, Potassium 5.0, Chloride 97 L, Carbon Dioxide 23.0, Anion Gap 7, BUN 4 L, Creatinine 0.56 L, Estim Creat Clear Calc 160.18, Est GFR (MDRD) Af Amer 196, Est GFR (MDRD) Non-Af 162, BUN/Creatinine Ratio 7.2 L, Glucose 99, Calcium 8.6, Total Bilirubin 0.40, AST 179 H, ALT 106 H, Alkaline Phosphatase 127 H, Total Protein 7.5, Albumin 3.6, Globulin 3.9, Albumin/Globulin Ratio 0.9 06/08/19 18:40: Ethyl Alcohol 299.0 06/08/19 18:40: Phosphorus 3.8, Magnesium 1.8 06/08/19 19:30: Urine Opiates Screen NEGATIVE, Urine Methadone Screen NEGATIVE, Ur Barbiturates Screen NEGATIVE, Ur Phencyclidine Scrn NEGATIVE, Ur Amphetamines Screen NEGATIVE, U Methamphetamin-MDMA NEGATIVE, U Benzodiazepines Scrn NEGATIVE, Urine Cocaine Screen NEGATIVE, U Cannabinoids Screen POSITIVE H, Ur Drug Screen Comment 06/09/19 05:44: Sodium 129 L, Potassium 3.6, Chloride 97 L, Carbon Dioxide 23.0, Anion Gap 9, BUN 3 L, Creatinine 0.48 L, Estim Creat Clear Calc 184.14, Est GFR (MDRD) Af Amer 234, Est GFR (MDRD) Non-Af 194, BUN/Creatinine Ratio 6.3 L, Glucose 108 H, Calcium 9.0, Total Bilirubin 0.80, AST 128 H, ALT 97 H, Alkaline Phosphatase 127 H, Total Protein 7.2, Albumin 3.7, Globulin 3.5, Albumin/Globulin Ratio 1.1 Current Medications Acetaminophen (Tylenol) 500 mg PO Q4H PRN PRN PRN Reason: Temp > 100.4 F Amlodipine Besylate (Norvasc) 10 mg PO DAILY [facility] Last Admin: 06/09/19 10:04 Dose: 10 mg Documented by: Bisacodyl (Dulcolax) 10 mg RECTAL DAILY PRN PRN Reason: Constipation Dicyclomine HCl (Bentyl) 20 mg PO Q6H PRN PRN PRN Reason: abdominal discomfort Last Admin: 06/09/19 10:05 Dose: 20 mg Documented by: Famotidine (Pepcid) 20 mg PO BID [facility] Last Admin: 06/09/19 10:04 Dose: 20 mg Documented by: Folic Acid (Folic Acid) 1 mg PO DAILY@0800 [facility] Last Admin: 06/09/19 10:05 Dose: 1 mg Documented by: Gabapentin (Neurontin) 300 mg PO Q8H PRN PRN PRN Reason: moderate to severe anxiety Hydralazine HCl (Apresoline Iv) 10 mg IV Q4H PRN PRN PRN Reason: SBP > 160 Hydroxyzine Pamoate (Vistaril Pamoate Capsule) 50 mg PO Q4H PRN PRN PRN Reason: mild anxiety Last Admin: 06/09/19 10:04 Dose: 50 mg Documented by: Ibuprofen (Motrin) 600 mg PO Q8H PRN PRN PRN Reason: Pain Score 1-10/10 Loperamide HCl (Imodium) 2 mg PO Q4H PRN PRN PRN Reason: LOOSE STOOLS Last Admin: 06/09/19 10:05 Dose: 2 mg Documented by: Losartan Potassium (Cozaar) 50 mg PO DAILY [facility] Last Admin: 06/09/19 10:05 Dose: 50 mg Documented by: Nicotine (Nicoderm Cq (Pbkc)) 21 mg TRANSDERM. DAILY [facility] Last Admin: 06/09/19 10:05 Dose: 21 mg Documented by: Nutritional Formula (Lactose Free) (Ensure Enlive) 120 ml PO 4X/DAY [facility] Last Admin: 06/09/19 10:05 Dose: Not Given Documented by: Ondansetron HCl (Zofran) 8 mg PO Q8H PRN PRN PRN Reason: NAUSEA Last Admin: 06/09/19 10:04 Dose: 8 mg Documented by: Phenobarbital (Phenobarbital) 97.2 mg PO Q4H [facility]; Taper Stop: 06/13/19 02:59 Last Admin: 06/09/19 10:05 Dose: 97.2 mg Documented by: Senna (Senokot) 2 tablet PO QHS PRN PRN Reason: Constipation Sodium Chloride () 10 - 40 ml IV UD PRN PRN Reason: SALINE FLUSH Thiamine [facility] ([facility]itamin B1) [facility] Last Admin: 06/09/19 10:04 Dose: 100 mg Documented by: Trazodone HCl (Desyrel) 100 mg PO QHS PRN PRN Reason: INSOMNIA Last Admin: 06/09/19 02:36 Dose: 100 mg Documented by: STROKE Vital Signs/Narrative: Vital Signs Temp Pulse Resp BP Pulse Ox 06/09/19 10:00 98.6 F 113 H 18 154/106 H 99 Medical Necessity - Tobacco Use Smoking Status: Current every day smoker Tobacco Use: Cigarettes Assessment/Plan All Active Problems Alcohol withdrawal (Acute) Alcoholism (Acute) Angioedema of lips (Acute) 1. Alcoholism with acute withdrawal - continue phenobarb taper, CIWA protocol, thiamine, folate 2. hyponatremia - beer potomania, improving. 2. Nicotine abuse - continue patch 3. Abnormal LFTs - repeat as outpatient with PCP. 4. HTN - somewhat elevated, likely 2/2 withdrawal, monitor for now. 5. GERD - pepcid DVT ppx: early ambulation DC planning: f/u [facility] at dc This patient was seen by Flo Dubose PA-C under the supervision of Dr. Hayes.
--- NOTE | 2019-06-09 13:38 | ADDICTION ---
This jingle writer met with patient in his room to complete full biopsychosocial and ASAM assessment. Patient was alert, oriented and participated appropriately throughout session. He was pleasant throughout assessment, reported no SI, HI or mental health related barriers. He reports that he came to [facility] on 06/08/2019 to engage in detox as he has been drinking alcohol excessively for 2 months. This jingle writer will provide full assessment to [facility] social service coordinator upon completion for his chart. Patient and client began discussing discharge planning. Patient was resistant to the recommendation of Residential treatment as he attributes his increased alcohol abuse to not working. He is motivated to find full-time employment. Patient was receptive to outpatient treatment, specifically weekly individual counseling sessions. This jingle writer will provide patient with a list of options in the [place] area for him to choose from. [facility] signed an [facility]. ASAM: LOC Recommended- 4.0 Medically Managed Intensive Inpatient Services Dimension1: Acute Intoxication and/or Withdrawal Potential Patient reports that his last date of use (alcohol) was 06/08/2019. He states that he was experiencing withdrawal symptoms, including shakiness, agitation, nausea, body aches, high blood pressure and general discomfort and presented to [facility] ED to engage in detox. Patient is currently engaging in medical withdrawal management services and notes that he has had some symptom relief but continues to feel shaky and uncomfortable. He reports daily alcohol use prior to engaging with [facility]. Dimension2: Biomedical Conditions/Complications Patient reports prior high blood pressure diagnosis and is medicated for this. He reports some non-compliance related to focusing on drinking instead of taking care of myself. He reports no other significant medical barriers. Dimension3: Emotional, Behavioral, Cognitive Conditions and Complications Emotional: Patient reports no depression, anxiety or mood disorder symptoms. He reports mild agitation, likely related to AoD withdrawal. He reports no SI/HI. No psychosis noted. Behavioral: None noted Cognitive: Patient alert and oriented x4; presents with adequate intelligence. Dimension4: Readiness to Change Patient presents in the contemplation stage of change as evidenced by his identification of problem behaviors with limited understanding of how his use impacts behaviors which causes negative consequences. He does not appear motivated to make significant behavioral modification changes. He is currently refusing Residential recommendation but is receptive to outpatient upon release from [facility]. Dimension5: Relapse, Continued Use, or Continued Problem Potential Patient is at a high risk of relapse based on length of use, amount of use and motivating factors for use including boredom from not working. Patient does not appear to have appropriate recovery skills. Patient did not state awareness of triggers outside of not working. He may be appropriate for MAT. Dimension6: Recovery/ Living Environment Patient reports that he lives independently, with his partner, in [place], [place]. He reports prior use of alcohol in his home. He reports that his primary support people actively use alcohol. He reports resistance to mutual aid meetings and does not currently have a sponsor. He reported no sober support people.
[2019-06-09 14:30] VITALS: BP 136/91; PULSE 119; RESP 16; TEMP 36.9; O2SAT 96
[2019-06-09 18:40] VITALS: BP 118/89; PULSE 111; RESP 16; TEMP 36.9; O2SAT 97
[2019-06-09 21:58] VITALS: BP 130/89; PULSE 87; RESP 18; TEMP 36.9; O2SAT 95
[2019-06-10 02:15] VITALS: BP 117/82; PULSE 92; RESP 16; TEMP 36.9; O2SAT 95
[2019-06-10] MEDS: Phenobarbital 32.4 MG Tablet 64.8 MG PO ×6 (02:20→21:38)
[2019-06-10 06:21] VITALS: BP 130/83; PULSE 87; RESP 16; TEMP 37; O2SAT 95
[2019-06-10 09:16] VITALS: BP 137/88; PULSE 103; RESP 18; TEMP 37.2; O2SAT 97
[2019-06-10] MEDS: Folic Acid 1 MG Tablet PO (09:18)
[2019-06-10] MEDS: amLODIPine 10 MG Tablet PO (09:18)
[2019-06-10] MEDS: Thiamine Hydrochloride 100 MG Tablet PO (09:18)
[2019-06-10] MEDS: Losartan Potassium 50 MG Tablet PO (09:18)
[2019-06-10] MEDS: Famotidine 20 MG Tablet PO ×2 (09:18→21:38)
--- NOTE | 2019-06-10 11:35 | ADDICTION ---
Addendum entered by Jacinda Durán 06/10/19 11:46: ASAM: LOC Recommended- 3.5 Clinically Managed High-Intensity Residential Services- Patient refused. Patient reports willing to engage in 2.1 Intensive Outpatient Services - Scheduled with [facility] (06/14/2019). Original Note: This content writer met with patient in his room to process discharge planning to to update ASAM assessment. Patient was alert and oriented and reported intention to engage with [facility] for Intensive Outpatient upon discharge from [facility]. This content writer reminded patient that the recommendation was for Residential treatment, however, patient noted that inpatient doesn't work for me but I can do the three days a week. This content writer provided patient with intake paperwork for [facility] to be completed prior to his appointment with this content writer, at the [facility] office, on Friday06/14/2019 at 11am. Patient will complete a treatment plan on Friday06/14/2019 and will likely start Intensive Outpatient groups on Friday06/15/2019. This content writer has communicated with [facility] to provide continuity of care. This content writer will also refer patient to Medication Assisted Treatment through [facility] as well. This content writer will inform hospital social staff worker of patients discharge plans. ASAM: LOC Recommended- .0 Medically Managed Intensive Inpatient Services Dimension1: Acute Intoxication and/or Withdrawal Potential Patient reports that his last date of use (alcohol) was 06/08/2019. He states that he was experiencing withdrawal symptoms, including shakiness, agitation, nausea, body aches, high blood pressure and general discomfort and presented to [facility] ED to engage in detox. Patient is currently engaging in medical withdrawal management services and reports no current withdrawal symptoms. He reports daily alcohol use prior to engaging with [facility]. Dimension2: Biomedical Conditions/Complications Patient reports prior high blood pressure diagnosis and is medicated for this. He reports some non-compliance related to focusing on drinking instead of taking care of myself. He reports no other significant medical barriers. Dimension3: Emotional, Behavioral, Cognitive Conditions and Complications Emotional: Patient reports no depression, anxiety or mood disorder symptoms. He reports no further agitation. He reports no SI/HI. No psychosis noted. Behavioral: None noted Cognitive: Patient alert and oriented x4; presents with adequate intelligence. Dimension4: Readiness to Change Patient presents in the Contemplation stage of change as evidenced by his identification of problem behaviors with willingness to engage in Intensive Outpatient groups/ individual counseling to address problem behaviors and thinking errors and to promote positive behavioral modification. Patient's recommended LOC is Residential, he is unwilling to engage in Residential. Dimension5: Relapse, Continued Use, or Continued Problem Potential Patient is at a high risk of relapse based on length of use, amount of use and motivating factors for use including boredom from not working. Patient does not appear to have appropriate recovery skills. Patient did not state awareness of triggers outside of not working. This content writer will refer for MAT. Dimension6: Recovery/ Living Environment Patient reports that he lives independently, with his partner, in [place], [place]. He reports prior use of alcohol in his home. He reports that his primary support people actively use alcohol. He reports resistance to mutual aid meetings and does not currently have a sponsor. He reported no sober support people.
--- NOTE | 2019-06-10 13:34 | PN_ITS ---
Patient Problems: Active and Suspected Problems Alcoholism (Acute) Subjective: Patient seen and examined. States he slept well last night. Feels great. Requesting reduction in phenobarb given drowsiness. Plan for outpatient treatment for alcohol abuse at discharge. Denies current withdrawal symptoms. - Physical Exam Vitals/I&O's: Vital Signs Temp Pulse Resp BP Pulse Ox 98.9 F 103 H 18 137/88 H 97 06/10/19 09:16 06/10/19 09:16 06/10/19 09:16 06/10/19 09:16 06/10/19 09:16 Oxygen Delivery Method Room Air Weight: 163 lb 2.273 oz Body Mass Index (BMI) 22.7 Intake and Output for Last 24 Hours 06/08/19 06/09/19 06/10/19 23:59 23:59 23:59 Intake Total 3520 / 3520 350 / 350 Balance 3520 / 3520 350 / 350 General: Alert, Oriented x3, Cooperative HEENT: Atraumatic, PERRLA, EOMI, Normocephalic Neck: Supple, No JVD, Negative Carotid Bruits Lungs: Clear to auscultation, Normal air movement Cardiovascular: Regular rate, Regular Rhythm, Normal S1, Normal S2, No murmurs Abdomen: Bowel Sounds Present, Soft, Non Tender, Non-Distended Extremities: No clubbing, No cyanosis, No edema, Capillary Refill Less than 3 Seconds Skin: No rashes, No breakdown Musculoskeletal: No Tenderness to Palpation of Joints or Extremities Neurological: Cranial nerves II-XII grossly intact, Neuro grossly intact Psych/Mental Status: Normal Affect, Appropriate Current Medications Acetaminophen (Tylenol) 500 mg PO Q4H PRN PRN PRN Reason: Temp > 100.4 F Amlodipine Besylate (Norvasc) 10 mg PO DAILY [facility] Last Admin: 06/10/19 09:18 Dose: 10 mg Documented by: Bisacodyl (Dulcolax) 10 mg RECTAL DAILY PRN PRN Reason: Constipation Dicyclomine HCl (Bentyl) 20 mg PO Q6H PRN PRN PRN Reason: abdominal discomfort Last Admin: 06/09/19 10:05 Dose: 20 mg Documented by: Famotidine (Pepcid) 20 mg PO BID [facility] Last Admin: 06/10/19 09:18 Dose: 20 mg Documented by: Folic Acid (Folic Acid) 1 mg PO DAILY@0800 [facility] Last Admin: 06/10/19 09:18 Dose: 1 mg Documented by: Gabapentin (Neurontin) 300 mg PO Q8H PRN PRN PRN Reason: moderate to severe anxiety Hydralazine HCl (Apresoline Iv) 10 mg IV Q4H PRN PRN PRN Reason: SBP > 160 Hydroxyzine Pamoate (Vistaril Pamoate Capsule) 50 mg PO Q4H PRN PRN PRN Reason: mild anxiety Last Admin: 06/09/19 10:04 Dose: 50 mg Documented by: Ibuprofen (Motrin) 600 mg PO Q8H PRN PRN PRN Reason: Pain Score 1-10/10 Loperamide HCl (Imodium) 2 mg PO Q4H PRN PRN PRN Reason: LOOSE STOOLS Last Admin: 06/09/19 18:41 Dose: 2 mg Documented by: Losartan Potassium (Cozaar) 50 mg PO DAILY [facility] Last Admin: 06/10/19 09:18 Dose: 50 mg Documented by: Nicotine (Nicoderm Cq (Pbkc)) 21 mg TRANSDERM. DAILY [facility] Last Admin: 06/10/19 09:18 Dose: 21 mg Documented by: Ondansetron HCl (Zofran) 8 mg PO Q8H PRN PRN PRN Reason: NAUSEA Last Admin: 06/09/19 10:04 Dose: 8 mg Documented by: Phenobarbital (Phenobarbital) 64.8 mg PO Q4H [facility]; Taper Stop: 06/13/19 02:59 Last Admin: 06/10/19 11:45 Dose: 64.8 mg Documented by: Senna (Senokot) 2 tablet PO QHS PRN PRN Reason: Constipation Sodium Chloride () 10 - 40 ml IV UD PRN PRN Reason: SALINE FLUSH [facility] Last Admin: 06/10/19 09:18 Dose: 100 mg Documented by: Trazodone HCl (Desyrel) 100 mg PO QHS PRN PRN Reason: INSOMNIA Last Admin: 06/09/19 22:09 Dose: 100 mg Documented by: Medical Necessity - Tobacco Use Smoking Status: Current every day smoker Tobacco Use: Cigarettes Assessment/Plan All Active Problems Alcohol withdrawal (Acute) Alcoholism (Acute) Angioedema of lips (Acute) 1. Acute alcohol withdrawal on chronic alcohol abuse-on phenobarb taper, CIWA protocol. Continue thiamine, folate, multivitamin. Plan for outpatient treatment regarding alcohol dependence. Evaluated by Ashtyn. He was recommended for residential treatment however declined. 2. Hyponatremia-secondary to #1. Improving. 3. Tobacco dependence-encourage cessation. 4. Abnormal LFTs-outpatient follow-up. 5. Hypertension-continue home amlodipine, losartan regimen. 6. GERD-continue Pepcid. DVT prophylaxis-not indicated, low risk. Discharge planning: Plan for discharge home tomorrow with outpatient follow-up. This patient was seen by STEW Carroll under the supervision of Dr. Hayes.
[2019-06-10 15:09] VITALS: BP 120/83; PULSE 90; RESP 16; TEMP 36.8; O2SAT 97
--- NOTE | 2019-06-10 16:15 | NURSING ---
Andrés Herndon new number [phone]
[2019-06-10 21:43] VITALS: BP 128/88; PULSE 91; RESP 16; TEMP 37.1
[2019-06-11] MEDS: Phenobarbital 32.4 MG Tablet 64.8 MG PO ×2 (02:05→05:57)
[2019-06-11 02:09] VITALS: BP 120/85; PULSE 86; RESP 17; TEMP 36.6
[2019-06-11 06:41] LABS: Anion Gap 7 (5-15); BUN 6 mg/dL (7-18); BUN/Creat Ratio 9.8 RATIO (10-20); Calcium,Total 8.7 mg/dL (8.5-10.1); Chloride 97 mmol/L (98-107); Creatinine, Serum 0.61 mg/dL (0.70-1.30); EST Glomerular Filtration Rate 146 mL/min (>60); Est Glom Filt Rate - Afr Amer 176 mL/min (>60); Glucose 95 mg/dL (74-106); Potassium 3.1 mmol/L (3.5-5.1); Sodium Level 130 mmol/L (136-145)
[2019-06-11] MEDS: Famotidine 20 MG Tablet PO (08:51)
[2019-06-11] MEDS: Folic Acid 1 MG Tablet PO (08:51)
[2019-06-11] MEDS: Losartan Potassium 50 MG Tablet PO (08:51)
[2019-06-11] MEDS: Thiamine Hydrochloride 100 MG Tablet PO (08:51)
[2019-06-11] MEDS: amLODIPine 10 MG Tablet PO (08:51)
[2019-06-11 10:00] VITALS: BP 127/90; PULSE 86; RESP 18; TEMP 36.6; O2SAT 97
--- NOTE | 2019-06-11 10:04 | DCINST_ITS ---
- Discharge Diagnoses Current Active Problems: Current Active and Chronic Problems Alcoholism (Acute) You will use the following diet at home:: No restrictions Discharge Activity: Return to Normal Activity Call your doctor if you observe: Shortness of breath, Dizziness, Chest pain Allergies/Adverse Reactions: Allergies lisinopril Allergy (Verified 06/08/19 18:09) Angioedema aspirin Adverse Reaction (Verified 06/08/19 18:09) HEARTBURN codeine Adverse Reaction (Verified 06/08/19 18:09) NIGHTMARES Medications to take at Discharge Amlodipine [Norvasc] 10 mg PO DAILY #30 tablet 04/30/13 Losartan Potassium 50 mg PO DAILY 08/17/17 Folic Acid 1 mg PO DAILY #30 tab 04/03/19 Multivitamins,Therapeutic [Multivitamin] 1 tab PO DAILYCM #30 tab 04/03/19 Thiamine Mononitrate (Vit B1) [Vitamin B-1] 100 mg PO DAILY #30 tab 04/03/19 Primary Care Physician: Abdullahi Hope III, MD [Primary Care Provider] - Please follow up with your Primary Care Physician in: 1 Week Test Results: Test results from this visit will be discussed in further detail at your follow- up appointment, if applicable. Please Follow Up With: EIGHTY,ONE When: As scheduled Friday Proposed Discharge Date: 06/11/19
--- NOTE | 2019-06-11 10:15 | PCM.DC.SUM ---
Discharge Date and Diagnosis Date of Admission: 06/08/19 Date of Discharge: 06/11/19 - Primary Discharge Diagnosis Active and Suspected Problems 1. Acute alcohol withdrawal on chronic alcohol abuse 2. Hyponatremia 3. Tobacco dependence 4. Abnormal LFTs 5. Hypertension 6. GERD - Secondary Discharge Diagnosis Chronic Problems Alcohol abuse (Chronic) Tobacco use (Chronic) GERD (gastroesophageal reflux disease) (Chronic) Hypertension (Chronic) Hospital Course and Treatment Operations: None Procedures: None Summary of Care Provided: The patient is a 53 year old M admitted 06/08/2019 due to alcohol withdrawal, requesting detox. 1. Acute alcohol withdrawal on chronic alcohol abuse- phenobarb taper, CIWA protocol during admission. Continue thiamine, folate, multivitamin. Plan for outpatient treatment regarding alcohol dependence. Evaluated by Ashtyn, patient has appointment with him on Friday morning at 11 AM. He was recommended for residential treatment however declined. Follow-up with primary care physician in 1 week as well. 2. Hyponatremia-secondary to #1. Improved. 3. Tobacco dependence-encourage cessation. 4. Abnormal LFTs-outpatient follow-up. 5. Hypertension-continue home amlodipine, losartan regimen. 6. GERD-continue Pepcid. General: Alert, Oriented x3, Cooperative HEENT: Atraumatic, PERRLA, EOMI, Normocephalic Neck: Supple, No JVD, Negative Carotid Bruits Lungs: Clear to auscultation, Normal air movement Cardiovascular: Regular rate, Regular Rhythm, Normal S1, Normal S2, No murmurs Abdomen: Bowel Sounds Present, Soft, Non Tender, Non-Distended Extremities: No clubbing, No cyanosis, No edema, Capillary Refill Less than 3 Seconds Skin: No rashes, No breakdown Musculoskeletal: No Tenderness to Palpation of Joints or Extremities Neurological: Cranial nerves II-XII grossly intact, Neuro grossly intact Psych/Mental Status: Normal Affect, Appropriate Patient seen and examined prior to discharge. Physical assessment as noted above. Patient is stable for discharge with follow up recommendations as noted above. This patient was seen by STEW Carroll under the supervision of Dr. Hayes. - Physical Exam Vitals/I&O's: Vital Signs Temp Pulse Resp BP Pulse Ox 97.8 F 86 17 120/85 H 97 06/11/19 02:09 06/11/19 02:09 06/11/19 02:09 06/11/19 02:09 06/10/19 15:09 Oxygen Delivery Method Room Air Weight: 163 lb 2.273 oz Body Mass Index (BMI) 22.7 Intake and Output for Last 24 Hours 06/09/19 06/10/19 06/11/19 23:59 23:59 23:59 Intake Total 3520 / 3520 1390 / 1390 600 / 600 Balance 3520 / 3520 1390 / 1390 600 / 600 Laboratory Results 06/11/19 06:05: Sodium 130 L, Potassium 3.1 L, Chloride 97 L, Carbon Dioxide 26.0, Anion Gap 7, BUN 6 L, Creatinine 0.61 L, Estim Creat Clear Calc 144.90, Est GFR (MDRD) Af Amer 176, Est GFR (MDRD) Non-Af 146, BUN/Creatinine Ratio 9.8 L, Glucose 95, Calcium 8.7 Current Medications Acetaminophen (Tylenol) 500 mg PO Q4H PRN PRN PRN Reason: Temp > 100.4 F Amlodipine Besylate (Norvasc) 10 mg PO DAILY [facility] Last Admin: 06/11/19 08:51 Dose: 10 mg Documented by: Bisacodyl (Dulcolax) 10 mg RECTAL DAILY PRN PRN Reason: Constipation Dicyclomine HCl (Bentyl) 20 mg PO Q6H PRN PRN PRN Reason: abdominal discomfort Last Admin: 06/09/19 10:05 Dose: 20 mg Documented by: Famotidine (Pepcid) 20 mg PO BID [facility] Last Admin: 06/11/19 08:51 Dose: 20 mg Documented by: Folic Acid (Folic Acid) 1 mg PO DAILY@0800 [facility] Last Admin: 06/11/19 08:51 Dose: 1 mg Documented by: Gabapentin (Neurontin) 300 mg PO Q8H PRN PRN PRN Reason: moderate to severe anxiety Hydralazine HCl (Apresoline Iv) 10 mg IV Q4H PRN PRN PRN Reason: SBP > 160 Hydroxyzine Pamoate (Vistaril Pamoate Capsule) 50 mg PO Q4H PRN PRN PRN Reason: mild anxiety Last Admin: 06/09/19 10:04 Dose: 50 mg Documented by: Ibuprofen (Motrin) 600 mg PO Q8H PRN PRN PRN Reason: Pain Score 1-10/10 Loperamide HCl (Imodium) 2 mg PO Q4H PRN PRN PRN Reason: LOOSE STOOLS Last Admin: 06/09/19 18:41 Dose: 2 mg Documented by: Losartan Potassium (Cozaar) 50 mg PO DAILY [facility] Last Admin: 06/11/19 08:51 Dose: 50 mg Documented by: Nicotine (Nicoderm Cq (Pbkc)) 21 mg TRANSDERM. DAILY [facility] Last Admin: 06/11/19 08:50 Dose: 21 mg Documented by: Ondansetron HCl (Zofran) 8 mg PO Q8H PRN PRN PRN Reason: NAUSEA Last Admin: 06/09/19 10:04 Dose: 8 mg Documented by: Phenobarbital (Phenobarbital) 64.8 mg PO Q6H [facility]; Taper Stop: 06/13/19 02:59 Last Admin: 06/11/19 05:57 Dose: 64.8 mg Documented by: Potassium Chloride (K-Dur) 40 meq PO X1 ONE Stop: 06/11/19 10:16 Senna (Senokot) 2 tablet PO QHS PRN PRN Reason: Constipation Sodium Chloride () 10 - 40 ml IV UD PRN PRN Reason: SALINE FLUSH [facility] Last Admin: 06/11/19 08:51 Dose: 100 mg Documented by: Trazodone HCl (Desyrel) 100 mg PO QHS PRN PRN Reason: INSOMNIA Last Admin: 06/09/19 22:09 Dose: 100 mg Documented by: Discharge Diet: No Restrictions Discharge Activity: Return to Normal Activity Call your doctor if you observe: Shortness of breath, Dizziness, Chest pain Home Medications: Medications to take at Discharge Amlodipine [Norvasc] 10 mg PO DAILY #30 tablet 04/30/13 Losartan Potassium 50 mg PO DAILY 08/17/17 Folic Acid 1 mg PO DAILY #30 tab 04/03/19 Multivitamins,Therapeutic [Multivitamin] 1 tab PO DAILYCM #30 tab 04/03/19 Thiamine Mononitrate (Vit B1) [Vitamin B-1] 100 mg PO DAILY #30 tab 04/03/19 Hydroxyzine Pamoate [Vistaril] 50 mg PO 4X/DAY PRN PRN #30 cap 06/11/19 Following Prescrptions Were Given to Patient: Hydroxyzine Pamoate [Vistaril] 50 mg PO 4X/DAY PRN PRN #30 cap PRN Reason: Anxiety Transmission Status: Pending to [email or web address] #[email or web address] Primary Care Physician: Abdullahi Hope III, MD [Primary Care Provider] - Please follow up with your Primary Care Physician in: 1 Week Please Follow Up With: EIGHTY,ONE When: As scheduled Friday Disposition: Home Minutes spent on discharge:: 35 Patient Condition:: Stable Medical Necessity - Tobacco Use Smoking Status: Current every day smoker Tobacco Use: Cigarettes Meaningful Use Info Meaningful Use Diagnoses (Choose all that apply): None applicable
[2019-06-11 11:02] VITALS: BP 127/90; PULSE 86; RESP 18; TEMP 36.7; O2SAT 97
== END 2019-06-11 11:02 | disposition home or self-care (01) | DRG 775 ==
LOC: ED 20:18 → PCU 20:34
PROVIDERS: Nurse Practitioner Family; Admitting Provider Family Medicine; Emergency Provider Emergency Medicine; PCP Family Medicine; Visit Provider Internal Medicine
DX: F10.239 Alcohol dependence with withdrawal, unspecified (principal); E87.1 Hypo-osmolality and hyponatremia; R94.5 Abnormal results of liver function studies; K21.9 Gastro-esophageal reflux disease without esophagitis; I10 Essential (primary) hypertension; J44.9 Chronic obstructive pulmonary disease, unspecified; F17.210 Nicotine dependence, cigarettes, uncomplicated; F12.90 Cannabis use, unspecified, uncomplicated; Z82.49 Family history of ischemic heart disease and other diseases of the circulatory system; Z83.3 Family history of diabetes mellitus; Y90.8 Blood alcohol level of 240 mg/100 ml or more
CPT/HCPCS: 36415; 80048; 80053; 80307; 80320; 83735; 84100; 85025; 85610; 97802; 99284; 99406; J7120; A4216; G0480

== ENCOUNTER 2019-06-13 13:10 | Inpatient (IN) | payer MEDICAID, SELFPAY ==
[2019-06-08 20:57] VITALS: BMI 22.7
[2019-06-13] VITALS (7 sets, daily range): BP systolic 118–135; BP diastolic 76–91; PULSE 79–96; RESP 14–18; TEMP 36.3–36.8; O2SAT 98–100; BMI 25.0
[2019-06-13] MEDS: Midazolam 2 MG/2 ML Syringe IV (13:22)
[2019-06-13] MEDS: fentaNYL 100 MCG/2 ML Ampul IV (13:22)
[2019-06-13] MEDS: fentaNYL 100 MCG/2 ML Ampul 50 MCG IV (13:24)
--- NOTE | 2019-06-13 13:26 | ED.RN ---
PATIENT MEDICATED PER ORDERS, ANKLE REDUCED BY DR. MERCEDES. ORTHO CART AT BEDSIDE.
--- NOTE | 2019-06-13 13:32 | RAD_ITS ---
STUDY: X-RAY - RIGHT ANKLE REASON FOR EXAM: Male, 53 years old. Patient twisted right ankle and right foot and fell. Pain entire right ankle into right foot. All films done portable. TECHNIQUE: 3 view(s) of the ankle. COMPARISON: None. FINDINGS: Bandage material obscures anatomic detail. There is a comminuted fracture within the distal diaphysis of the tibia. There is dorsal displacement of the distal tibia. There is a comminuted oblique fracture within the distal diaphysis of the fibula visualized as well. There is lateral displacement of the distal fibula. Normal tibiotalar articulation and ankle mortise. Normal visualized talus and calcaneus. The visualized subtalar, talonavicular, calcaneocuboid and tarsal articulations are normal. RAD/Ankle min 3 Views IMPRESSION: Distal tibial and fibular fractures. Electronically Signed: Kamini Berkowitz MD at 14:19 EDT Tel , Service support ,
--- NOTE | 2019-06-13 13:39 | EKG12_ITS ---
Test Reason : Blood Pressure : / mmHG Vent. Rate : 071 BPM Atrial Rate : 071 BPM P-R Int : 162 ms QRS Dur : 112 ms QT Int : 424 ms P-R-T Axes : 045 -05 037 degrees QTc Int : 460 ms Normal sinus rhythm Cannot rule out Anterior infarct , age undetermined Abnormal ECG Confirmed by ANA MENDOSA, HOLLY ([id number]), blackjack pit boss CHET PINEDA ([id number]) on 06/14/2019 8:25:34 AM Referred By: HALEY Confirmed By:HOLLY PEREZ MD
--- NOTE | 2019-06-13 13:40 | RAD_ITS ---
STUDY: X-RAY - RIGHT FOOT CLINICAL: Male, 53 years old. Patient twisted right ankle and right foot and fell. Pain entire right ankle into right foot. All films done portable. TECHNIQUE: 3 view(s) of the foot. COMPARISON: None. FINDINGS: Bandage material obscures anatomic detail of the mid and hindfoot. There is partial visualization of a distal fibular. Normal talus, calcaneus, and tarsal bones. There are degenerative changes of the midfoot. Normal metatarsi. There is degenerative arthrosis of the metatarsophalangeal joint of the hallux . There is degenerative arthrosis of the interphalangeal joint of the great toe. Normal phalanges of the great toe. Normal second through fifth metatarsophalangeal joints. Normal interphalangeal joints and phalanges of the lesser toes. RAD/Foot min 3 Views IMPRESSION: Partially visualized distal fibular fracture. Degenerative changes. Electronically Signed: Kamini Berkowitz MD at 14:17 EDT Tel , Service support ,
--- NOTE | 2019-06-13 13:40 | ED.RN ---
DR DEWAYNE BHAT FOR DR MERCEDES
--- NOTE | 2019-06-13 13:45 | CT_ITS ---
STUDY: CT RIGHT ANKLE WITHOUT CONTRAST REASON FOR EXAM: Male, 53 years old. RIGHT ANKLE FX -- S/P FALL RADIATION DOSAGE (If Supplied By Facility): CTDIvol = ( 15.35 ) mGy, DLP = ( 535.86 ) mGycm TECHNIQUE: Thin section transaxial imaging of the ankle was obtained, with sagittal and coronal reconstructed images. Individualized dose optimization techniques were used for this CT. COMPARISON: Right ankle x-ray transplant June 13, 2019 right foot x-ray June 13, 2019 FINDINGS: There is incomplete visualization of pathology in the soft tissues. The study extends from the distal tibia and fibula through the distal metatarsals. There is a comminuted fracture of the distal tibia extending into the articular surface of the tibia at the tibial talar joint following the posterior malleolus, to the lateral side of the articular surface.. There is posterior displacement of the distal fragment and foreshortening of up to 5 cm. The tibiotalar joint appears to be maintained. There is a fracture of the distal fibula with slight lateral displacement of the distal fragment. There is gas formation suggesting that this is either involving a laceration or potentially open fracture which may be associated with the fracture fragment from the proximal portion of the fracture site of the tibia. The tibial talar joint peers to be maintained. A fracture line is not seen within the talus. The calcaneus appears to be intact. There is a fracture of proximal second metatarsal. There is a fracture of the lateral cuneiform. There is a subtle fracture at the base of the third digit metatarsal. This may occur in 2 places. There is also fracture at the base of the fourth metatarsal. There is soft tissue edema. CT/Extremity Lower without Contra IMPRESSION: Comminuted dislocated fractures of the distal tibia and fibula into the articular surface with foreshortening. Ankle mortise is intact. However there is a fracture of the second third and fourth proximal metatarsals. There is a fracture of the lateral cuneiform suggested. The study is limited to evaluate the foot as it is centered in the ankle. The calcaneus appears intact and contains an Achilles spur. There is gas in the soft tissues suggesting that there hasn''t been a laceration this may be an open fracture involving the tibia. Recommend dedicated CT scan of the foot for further clarification of the multiple fractures of the foot. Electronically Signed: Aurora Garcia MD at 15:27 EDT Tel , Service support ,
--- NOTE | 2019-06-13 13:48 | RAD_ITS ---
STUDY: X-RAY CHEST REASON FOR EXAM: Male, 53 years old. FALL; TECHNIQUE: Single frontal view of the chest. COMPARISON: March 31, 2019 FINDINGS: There is a granuloma again noted within the right lower lung. There appears to be a an additional granuloma within the left upper lung. There is no new focal consolidation. Normal size heart. Normal mediastinum and june. Normal visualized pulmonary arteries. Normal visualized aortic arch and descending thoracic aorta. Normal visualized thoracic spine. There are stable right posterior rib deformities consistent with old fractures. There is no demonstrated abnormality of the visualized soft tissue structures of the upper abdomen. RAD/Chest 1 View (Portable) IMPRESSION: No acute cardiopulmonary process. Electronically Signed: Kamini Berkowitz MD at 14:14 EDT Tel , Service support ,
--- NOTE | 2019-06-13 13:49 | ED.DCSUM_ITS ---
History of Present Illness Chief Complaint: Lower Extremity Injury Informant: Patient Onset: Today Maximum Severity: Moderate Narrative: Coronavirus national emergency patient no exposures Patient presents with an obvious fracture to the right lower ankle area, he indicates he was walking moving some objects had them in his hand he inadvertently stumbled twisted his ankle and could not get up brought in by EMS EMS noticed an obvious deformity to the ankle he was brought in. He has history of hypertension is well controlled otherwise no past history, no history of MD PE or DVT again hypertension is well controlled he has no head neck chest or abdominal pain his only complaint is ankle pain, he indicates he had 1 beer today to drink and denies any possibility of any other type of injury and he only complains of ankle pain Past Medical History - Allergies and Home Meds Allergies/Adverse Reactions: Allergies lisinopril Allergy (Verified 06/13/19 13:10) Angioedema aspirin Adverse Reaction (Verified 06/13/19 13:10) HEARTBURN codeine Adverse Reaction (Verified 06/13/19 13:10) NIGHTMARES Primary Care Physician: Abdullahi Hope III, MD [Primary Care Provider] - Past Medical History: - Surgical History: - - L testicle removal s/p torsion at 18 y/o, T+A. Smoking Status: Current every day smoker - Family History Maternal Family History: Reports: - - Patient notes a maternal family history of hypertension, heart disease. Paternal Family History: Reports: - - Patient notes a paternal family history of hypertension, heart disease and diabetes. Review of Systems ROS: - Hypertension General: Denies: Chills, Fever, Sweats Eyes: Denies: Visual changes - bilaterally, Diplopia ENT: Denies: Rhinorrhea, Sore throat Cardiovascular: Denies: Chest pain, Palpitations Respiratory: Denies: Dyspnea, Cough, Dyspnea on exertion Gastrointestinal: Denies: Abdominal pain, Nausea, Vomiting, Diarrhea, Melena, Hematochezia Genitourinary: Denies: Dysuria, Hematuria, Frequency Musculoskeletal: Reports: Extremity Pain. Denies: Back pain Skin: Denies: Rash, Wounds Neurological: Denies: Headache, Weakness, Numbness Physical Exam Vital Signs/Narrative: Vital Signs Temp Pulse Resp BP Pulse Ox 06/13/19 13:28 79 14 118/81 H 100 06/13/19 13:14 88 15 134/90 H 98 06/13/19 13:11 97.4 F L 85 17 100 General: Well nourished, Well developed, No Acute Distress Head: Normocephalic, Atraumatic Eyes: Perrl, EOMI ENT: Moist mucous membranes, No rhinorrhea Neck: Supple, Nontender Cardiovascular: Regular rate, Regular rhythm, No murmurs Respiratory: No distress, CTA bilaterally, Chest nontender Abdomen: Soft, Nontender, Nondistended, Normal bowel sounds Back: Nontender, Normal Inspection Extremities: No edema, Tenderness, - - He has an obvious deformity to his right ankle and that his great toe right is pointed toward his right shoulder, he has a small shard of what appears to be bone in the anterior tibial area protruding through the skin there is minimal bleeding, he has faint dorsalis pedis and posterior tibial pulses his toes are well perfused cap refill less than 2 seconds his sensation and movement of the toes is normal, as above the rest of exam is unremarkable with no signs of other injury, he underwent immediate hyperoxygenation premedication IV fluids he was treated with fentanyl Versed in incremental doses once that took effect he underwent reduction of the dislocation with good results, post reduction he had palpable dorsalis pedis and posterior tibial pulses these were confirmed with Doppler and again his catheter refill and sensation neurovascular function to the toes was unremarkable, dressing was applied and he was placed in a appropriate splint his leg was elevated Skin: Normal color, No rash Neurological: Alert, Oriented x3, Cranial nerves II-XII grossly intact, Normal Strength, Normal Sensation Psychological: Normal affect, Normal Mood Diagnostic/Tx/Re-eval - Medical Decision Making He has received IV fluids pain management he is receiving screening labs and x- rays, We spoke immediately with orthopedics made them aware of the open fracture of the reduction etc. Dr. Felipe reviewed his x-rays and stated he would be coordinating his care Disposition pending orthopedic evaluation Impression final open fracture dislocation right ankle lower extremity Conscious sedation in the emergency department Fracture and dislocation reduction ED Disposition - Plan for ED Patient: Diagnosis: Open fracture dislocation of ankle joint, Conscious sedation, Reduction of fracture Referrals: Abdullahi Hope III, MD [Primary Care Provider] -
[2019-06-13 13:57] LABS: Absolute Lymphocyte Count 1.77 X10^3/uL (0.83-4.51); Absolute Neutrophil Count 4.3 X10^3/uL (2.0-7.7); Basophil# 0.04 X10^3/uL; Basophil% 0.5 % (0-1); Eosinophil# 0.25 X10^3/uL; Eosinophils% 3.4 % (0-5); Hematocrit 37.5 % (40-54); Hemoglobin 12.6 g/dL (13.0-16.5); Lymphocyte # 1.77 X10^3/ul (4.0); Lymphocyte % 24.1 % (19-41); Mean Corp Hgb Conc 33.6 g/dL (32-36); Mean Corpuscular Hgb 33.4 pg (27.0-32.0); Mean Corpuscular Volume 99.5 fL (80-94); Mean Platelet Vol. 10.3 fl (6.2-12.0); Monocyte% 12.2 % (0-10); NRBC Flagged by Analyzer 0 % (0-5); Neutrophil # 4.34 X10^3/uL (2.7-7.7); Neutrophil % 59.1 % (47-70); Platelet Count 165 K/mm3 (150-450); RBC Distribution Width CV 13.5 % (11.6-14.6); RBC Distribution Width SD 49.3 fl (35.1-43.9); Red Blood Count 3.77 M/mm3 (4.6-6.2); White Blood Count 7.4 K/mm3 (4.4-11.0)
[2019-06-13 14:06] LABS: International Normalized Ratio 0.9; Prothrombin Time (Protime)PT. 11.9 SECONDS (11.7-14.9)
[2019-06-13 14:10] LABS: Anion Gap 10 (5-15); BUN 4 mg/dL (7-18); BUN/Creat Ratio 7.2 RATIO (10-20); Chloride 96 mmol/L (98-107); Creatinine, Serum 0.56 mg/dL (0.70-1.30); EST Glomerular Filtration Rate 162 mL/min (>60); Est Glom Filt Rate - Afr Amer 196 mL/min (>60); Estimated Creatinine Clearance 160.61 ml/min; Glucose 104 mg/dL (74-106); Potassium 3.7 mmol/L (3.5-5.1); Sodium Level 128 mmol/L (136-145)
[2019-06-13] MEDS: Cefazolin 2 GM in 0.9% Normal Saline 100 ML IV (14:15)
[2019-06-13] MEDS: Diphth,Pertuss(Acell),Tet Vac 0.5 ML Vial IM (14:32)
[2019-06-13] MEDS: HYDROmorphone 1 MG/ML Syringe IV (14:32)
--- NOTE | 2019-06-13 19:43 | PCM.CONS.GEN ---
Problem List (1) Open fracture dislocation of ankle joint Status: Acute Qualifiers: Encounter type: initial encounter Laterality: right (2) Chronic hyponatremia Status: Chronic (3) Alcohol abuse Status: Chronic (4) Tobacco use Status: Chronic (5) GERD (gastroesophageal reflux disease) Status: Chronic Qualifiers: Esophagitis presence: esophagitis presence not specified Qualified Code(s): K21.9 - Gastro-esophageal reflux disease without esophagitis (6) Hypertension Status: Chronic Qualifiers: Hypertension type: essential hypertension Qualified Code(s): I10 - Essential (primary) hypertension Reason for Consult Date of Consultation: 06/13/19 Reason for Consultation: Medical consultation History of Present Illness: The patient is a 53 y/o M w/ PMHx: GERD, Tobacco use, Chronic COPD, HTN, Chronic back pain w/ radiculopathy, Cannabis use, EtOH use (12 pack beer daily), Chronic Hyponatremia recently discharged on 06/11/2019 following treatment of acute alcohol withdrawal noting at that time to have declined residential treatment but willing to follow-up with 180 who now re-presents to the [facility] ED on 06/13/19 who unfortunately upon return to home initiated alcohol intake immediately and while attempting to move boxes and items as he notes moving to a different location with his significant his foot became caught and he fell with severe onset right lower extremity pain and deformity. Work-up in the ED included T 97.4, heart rate 85, BP 134/90, respiratory rate 17, under percent room air, CBC with WC 7.4, hemoglobin 12.6, platelet 165 with no evidence of left shift, unremarkable coags, BMP with sodium 128, chloride 96, BUN/creatinine 4/0.56, ethyl alcohol 235, right ankle plain film with a distal tibial and fibular fractures evident, right foot plain film with partially visualized distal fibular fracture, right lower extremity CT with comminuted dislocated fractures of the distal tibia and fibula into the articular surface with foreshortening with ankle mortise intact with also noted fracture of the second third and fourth proximal metatarsals and likely a fracture of the lateral cuneiform, gas in the soft tissues possibly secondary to open fracture involving the tibia. The patient was admitted per orthopedic surgery, Dr. Felipe and hospitalist consultation for medical management and treatment for patient alcohol abuse to avoid withdrawal requested. Past Medical History Past Medical History (Chronic Problems): Chronic Problems Chronic hyponatremia (Chronic) Alcohol abuse (Chronic) Tobacco use (Chronic) GERD (gastroesophageal reflux disease) (Chronic) Hypertension (Chronic) Allergies lisinopril Allergy (Verified 06/13/19 13:10) Angioedema aspirin Adverse Reaction (Verified 06/13/19 13:10) HEARTBURN codeine Adverse Reaction (Verified 06/13/19 13:10) NIGHTMARES Home Medications: Ambulatory Orders Medication Instructions Recorded Losartan Potassium 50 mg PO DAILY 08/17/17 Amlodipine [Norvasc] 10 mg PO DAILY 06/13/19 Surgical History: - - L testicle removal s/p torsion at 18 y/o, T+A. Psychiatric History: No pertinent psych hx Lives: Spouse/ Significant Other Smoking Status: Current every day smoker - 2 pack/day cigarette tobacco usage starting when he was 15 years old but increasing over the last year. Tobacco Use: Cigarettes Alcohol: Heavy - Usual intake between 12 and 16 beers daily. - *Family History Maternal History Items: - - Patient notes a maternal family history of hypertension, heart disease. Paternal History Items: - - Patient notes a paternal family history of hypertension, heart disease and diabetes. Review of Systems Constitutional: Reports: Anorexia, Malaise, Weakness, Fatigue. Denies: Chills, Fever, Weight Change HEENT: Denies: Head Aches, Sinus Congestion, Sinus Drainage Cardiovascular: Denies: Chest Pain, Palpitations Respiratory: Denies: Cough, Shortness of breath at rest, Sputum production Gastrointestinal: Denies: Abdominal Pain, Nausea, Vomiting Genitourinary: Denies: Dysuria Musculoskeletal: Reports: Foot Pain, Joint Pain, Joint stiffness, Joint swelling, Joint Tenderness, Leg Pain Skin: Denies: Rash, Wounds Neurological: Reports: Tremor. Denies: Focal weakness, Numbness, Tingling Psychiatric: Reports: Anxiety, Depression. Denies: Homicidal Ideations, Suicidal Ideations Hematologic/ Lymphatic: Reports: Anemia. Denies: Easy Bruising, Easy Bleeding Patient Problems: Active and Suspected Problems Open fracture dislocation of ankle joint (Acute) Subjective: Laying in the PCU bed, fatigued, requesting pain medication for R foot pain. Objective: Physical Examination: General: awake, alert, oriented x 3 and cooperative, layin in the PCU bed, notes ongoing pain to RLE, mild tremors, irritable. Skin: normal color, turgor, no icterus, cyanosis, RLE s/p fracture, open, reduction per ED. HEENT: AT/NC, EOMI, PERRLA, moderately dry MM, no carotid bruits or JVD noted. Lungs: CTA bilaterally, moderate effort, moderate decrease BL bases, no rales, ronchi or wheezing. Heart: Regular rate with regular rhythm; no gallop, rub audible. Abdomen: soft, NTTP, ND, normal BS, mild HM. Extremities: no cyanosis, clubbing, s/p fall w/ RLE ankle fracture, open, reduction per ED. Neurological: patient awake, alert, oriented x 3; cognitive function suspect near baseline intact; pupils equally reactive to light and accomodation; cranial nerves II-XII grossly normal, moving upper BL and LLE, s/p fall w/ R ankle open fracture s/p reduction, not moving secondary to pain and trauma, strength accordingly severely global decrease, mild tremor also evident, most recent alcohol intake earlier in the day. Psychiatric: affect appears fatigued, uncomfortable, irritable, no acute evidence of depressive or anxiety feelings. - Physical Exam Vitals/I&O's: Vital Signs Temp Pulse Resp BP Pulse Ox 97.7 F L 83 16 124/76 H 99 06/13/19 15:42 06/13/19 15:42 06/13/19 15:42 06/13/19 15:42 06/13/19 15:42 Oxygen Flow Rate (L/min) 2 Oxygen Delivery Method Room Air Weight: 179 lb 0.246 oz Body Mass Index (BMI) 25.0 Intake and Output for Last 24 Hours 06/11/19 06/12/19 06/13/19 23:59 23:59 23:59 Intake Total 110 / 110 Output Total 1000 / 1000 Balance -890 / -890 Laboratory Results 06/13/19 13:30: WBC 7.4, RBC 3.77 L, Hgb 12.6 L, Hct 37.5 L, MCV 99.5 H D, MCH 33.4 H, MCHC 33.6, RDW Std Deviation 49.3 H, RDW Coeff of Wen 13.5, Plt Count 165, MPV 10.3, Immature Gran % (Auto) 0.700, Neut % (Auto) 59.1, Lymph % (Auto) 24.1, [place] % (Auto) 12.2 H, Eos % (Auto) 3.4, Baso % (Auto) 0.5, Absolute Neuts (auto) 4.3, Absolute Lymphs (auto) 1.77, Nucleated RBC % 0 06/13/19 13:30: Sodium 128 L, Potassium 3.7, Chloride 96 L, Carbon Dioxide 22.0, Anion Gap 10, BUN 4 L, Creatinine 0.56 L, Estim Creat Clear Calc 160.61, Est GFR (MDRD) Af Amer 196, Est GFR (MDRD) Non-Af 162, BUN/Creatinine Ratio 7.2 L, Glucose 104, Calcium 8.0 L 06/13/19 13:30: PT 11.9, INR 0.9 06/13/19 13:30: Ethyl Alcohol 235.0 Current Medications Amlodipine Besylate (Norvasc) 10 mg PO DAILY BRENNON Cefazolin Sodium 2 gm/ Sodium (Chloride) 110 mls @ 150 mls/hr IV X1 ONE Stop: 06/14/19 07:43 Lactated Ringer's () 1,000 mls @ 125 mls/hr IV .Q8H BRENNON Losartan Potassium (Cozaar) 50 mg PO DAILY BRENNON Morphine Sulfate () 1 mg IV Q4H PRN PRN PRN Reason: Pain Score 6-10/10 Ondansetron HCl (Zofran) 4 mg IV Q8H PRN PRN PRN Reason: Nausea Sodium Chloride () 10 - 40 ml IV UD PRN PRN Reason: SALINE FLUSH Assessment/Plan All Active Problems Open fracture dislocation of ankle joint (Acute) Alcohol withdrawal (Acute) Alcoholism (Acute) Angioedema of lips (Acute) The patient is a 53 y/o M w/ PMHx: GERD, Tobacco use, Chronic COPD, HTN, Chronic back pain w/ radiculopathy, Cannabis use, EtOH use (12 pack beer daily), Chronic Hyponatremia recently discharged on 06/11/2019 following treatment of acute alcohol withdrawal noting at that time to have declined residential treatment but willing to follow-up with 180 who now re-presents to the [facility] ED on 06/13/19 who unfortunately upon return to home initiated alcohol intake immediately and while attempting to move boxes and items as he notes moving to a different location with his significant his foot became caught and he fell with severe onset right lower extremity pain and deformity. 1. Mechanical fall with open fracture and dislocation of the right ankle: Admitted per orthopedic surgery, unclear operative intervention plans, medical consultation requested given alcohol abuse history, ain management, bowel regimen, DVT Prophylaxis, PT/OT/CM per Orthopedic surgery discretion. 2. Acute EtOH Withdrawal: Patient with most recent beer intake earlier in the day, recent discharge following detox program however declined inpatient residential program to which patient would greatly benefit especially given recurrent alcohol intake following completion of program. Will initiate and continue on protocol with taper course of Phenobarbital, scheduled gabapentin for seizure prophylaxis. Mag, phos pending. Maintain on CIWA protocol concurrently. 3. Hyponatremia, acute on chronic: Admission sodium 128, chronic with beer potomania, trend. 4. Hypertension: Continue home regimen including Norvasc, losartan, PRN hydralazine. 5. Tobacco Abuse: Encouraged cessation, inpatient consultation per RT, NR if desired. 6. Hx intracranial hemorrhage (cerebral hemorrhage): Patient with history of fall 04/14/[address] head notable for right posterior brainstem hyperdensity concerning for hemorrhage which was transferred to [facility] where patient was maintained in the ICU with neurosurgery consultation and close monitoring. 7. Chronic macrocytic anemia: Admission hemoglobin 12.6, continue vitamin B12, folic acid supplementation. 8. GERD: Maintain on famotidine. 9. DVT prophylaxis: Defer prophylaxis to primary service, orthopedic surgery specially given possible operative intervention needs. Office Visits / Consults: [id number] IP Consult L4
[2019-06-13] MEDS: Morphine 2 MG/ML Syringe 1 MG IV (19:45)
[2019-06-13] MEDS: Lactated Ringers 1,000 ML 125 ML IV (19:45)
[2019-06-13 20:11] LABS: Magnesium 1.8 mg/dL (1.6-2.6); Phosphorus 2.9 mg/dL (2.5-4.9)
[2019-06-13] MEDS: Phenobarbital 32.4 MG Tablet 64.8 MG PO ×2 (20:43→23:55)
[2019-06-13] MEDS: oxyCODONE 5 MG Tablet PO (20:43)
[2019-06-13] MEDS: Famotidine 20 MG Tablet PO (22:32)
[2019-06-13 23:10] LABS: Amphetamine Urine VISTA NEGATIVE (<1000 ng/mL); Barbiturate Urine VISTA POSITIVE (< 200 ng/mL); Benzodiazepine Urine VISTA POSITIVE (< 200 ng/mL); Cocaine Urine VISTA NEGATIVE (< 300 ng/mL); Ecstacy Urine VISTA NEGATIVE (< 500 ng/mL); Methadone Urine VISTA NEGATIVE (< 300 ng/mL); PCP Urine VISTA NEGATIVE (< 25 ng/mL); THC Urine VISTA POSITIVE (< 50 ng/mL); Vista UDS pH Range 6
[2019-06-14] VITALS (14 sets, daily range): BP systolic 90–138; BP diastolic 51–87; PULSE 83–100; RESP 16–18; TEMP 35.8–36.8; O2SAT 92–100
[2019-06-14] MEDS: Morphine 4 MG/ML Syringe IV ×3 (00:02→22:20)
[2019-06-14] MEDS: Lactated Ringers 1,000 ML 125 ML IV ×3 (04:04→20:14)
[2019-06-14] MEDS: Phenobarbital 32.4 MG Tablet 64.8 MG PO ×4 (04:23→20:09)
--- NOTE | 2019-06-14 05:55 | EKG12_ITS ---
Test Reason : AM EKG Blood Pressure : / mmHG Vent. Rate : 081 BPM Atrial Rate : 081 BPM P-R Int : 154 ms QRS Dur : 100 ms QT Int : 396 ms P-R-T Axes : 053 011 053 degrees QTc Int : 460 ms Normal sinus rhythm Septal infarct , age undetermined Abnormal ECG When compared with ECG of 13-JUN-2019 13:50, MANUAL COMPARISON REQUIRED, DATA IS UNCONFIRMED Confirmed by ANA MENDOSA, HOLLY ([id number]), senior technical editor CHET PINEDA ([id number]) on 06/14/2019 11:08:20 AM Referred By: DR BENJAMIN Confirmed By:HOLLY PEREZ MD
--- NOTE | 2019-06-14 06:29 | HP.PCM_ITS ---
History of Present Illness Date of Admission: 06/14/19 Chief Complaint: right leg pain The patient is a 53 year old M with history most significant for chronic alcohol abuse who was recently discharged after detoxification and sent home for outpatient treatment presents today with a right leg injury. Patient also reports nicotine use and marijuana. Patient notes that after he was discharged from the hospital he began alcohol consumption again. He was moving boxes around his house when his right foot became caught. He sustained a rotational injury. Presented emergency department with an open wound on his leg and a gross deformity. Fracture was reduced in the emergency department and splinted. Patient was given Ancef and tetanus was boosted. He was admitted to the hospital overnight for open treatment with debridement and fixation earlier this morning. He did have a positive alcohol test. Also positive for cannabinoids. Opiates and benzos were also positive. Cocaine amphetamines were negative. Currently, reports a dull achy pain in his foot and calf. He reports currently, 10 out of 10 upon presentation. Pain is improved with morphine and immobilization. Pain is made worse with movement. Is able to wiggle his toes without significant increase in leg pain. Wiggling his toes does increase his foot pain. Past Medical History Past Medical History (Chronic Problems): Chronic Problems Chronic hyponatremia (Chronic) Alcohol abuse (Chronic) Tobacco use (Chronic) GERD (gastroesophageal reflux disease) (Chronic) Hypertension (Chronic) Allergies lisinopril Allergy (Verified 06/13/19 13:10) Angioedema aspirin Adverse Reaction (Verified 06/13/19 13:10) HEARTBURN codeine Adverse Reaction (Verified 06/13/19 13:10) NIGHTMARES Home Medications: Ambulatory Orders Medication Instructions Recorded Losartan Potassium 50 mg PO DAILY 08/17/17 Amlodipine [Norvasc] 10 mg PO DAILY 06/13/19 Surgical History: - - L testicle removal s/p torsion at 18 y/o, T+A. Psychiatric History: No pertinent psych hx Lives: Spouse/ Significant Other Smoking Status: Current every day smoker - 2 pack/day cigarette tobacco usage starting when he was 15 years old but increasing over the last year. Tobacco Use: Cigarettes Alcohol: Heavy - Usual intake between 12 and 16 beers daily. Drugs: Marijuana - *Family History Maternal History Items: - - Patient notes a maternal family history of hypertension, heart disease. Paternal History Items: - - Patient notes a paternal family history of hypertension, heart disease and diabetes. Review of Systems Constitutional: Denies: Chills, Fever, Weight Change HEENT: Denies: Head Aches, Sinus Congestion, Sinus Drainage Cardiovascular: Denies: Chest Pain, Palpitations Respiratory: Denies: Cough, Shortness of breath at rest, Sputum production Gastrointestinal: Denies: Abdominal Pain, Nausea, Vomiting Genitourinary: Denies: Dysuria Musculoskeletal: Reports: Leg Pain. Denies: Joint Pain, Joint Tenderness Skin: Reports: Wounds. Denies: Rash Neurological: Denies: Numbness, Tingling, Focal weakness Psychiatric: Denies: Anxiety, Depression, Homicidal Ideations, Suicidal Ideations Hematologic/ Lymphatic: Denies: Easy Bruising, Easy Bleeding VTE Information - Inpt Only VTE Present on Admission: No VTE Mechan Device Prophylaxis: SCD's VTE Pharm Prophylaxis ordered?: No Reason prophylaxis not ordered:: Treatment Not Indicated - Patient will receive VTE prophylaxis after surgical intervention. Patient Problems: Active and Suspected Problems Open fracture dislocation of ankle joint (Acute) Objective: Right ankle and foot x-rays were reviewed. Foot x-ray did not show any gross abnormalities some mild degenerative changes. Ankle x-ray showed distal tibia and fibula spiral fracture. CT scan was ordered revealing nondisplaced second third and fourth metacarpal fractures at the base. While there is suspected cuneiform fracture there is no significant displacement. Also reveals a spiral distal tibia fracture and a posterior malleolus fracture which is nondisplaced. - Physical Exam Vitals/I&O's: Vital Signs Temp Pulse Resp BP Pulse Ox 98.2 F 100 18 138/87 H 98 06/14/19 04:10 06/14/19 04:10 06/14/19 04:10 06/14/19 04:10 06/14/19 05:00 Oxygen Flow Rate (L/min) 2 Oxygen Delivery Method Room Air Weight: 179 lb 0.246 oz Body Mass Index (BMI) 25.0 Intake and Output for Last 24 Hours 06/12/19 06/13/19 06/14/19 23:59 23:59 23:59 Intake Total 110 / 110 1000 / 1000 Output Total 1900 / 1900 550 / 550 Balance -1790 / -1790 450 / 450 General: Alert, Oriented x3, Cooperative HEENT: Atraumatic Oral: Moist Mucosa Neck: No JVD Lungs: - - Nonlabored breathing Cardiovascular: - - Regular pulse rate Abdomen: Non-Distended Extremities: - - Right lower extremity: Splint is on and intact. Patient has moderate swelling of the foot. Calf compartments are soft and supple. Sensations intact light touch saphenous, sural, superficial peroneal, deep peroneal tibial nerve distributions. Patient wiggles all toes. Patient tolerated passive range of motion of the toes. Motor is intact dorsiflexion EHL and plantar flexion. Skin: Ulcer/ Wound Musculoskeletal: No Muscle Wasting Neurological: Cranial nerves II-XII grossly intact Psych/Mental Status: Normal Affect Laboratory Results 06/13/19 13:30: WBC 7.4, RBC 3.77 L, Hgb 12.6 L, Hct 37.5 L, MCV 99.5 H D, MCH 33.4 H, MCHC 33.6, RDW Std Deviation 49.3 H, RDW Coeff of Wen 13.5, Plt Count 165, MPV 10.3, Immature Gran % (Auto) 0.700, Neut % (Auto) 59.1, Lymph % (Auto) 24.1, Rabun % (Auto) 12.2 H, Eos % (Auto) 3.4, Baso % (Auto) 0.5, Absolute Neuts (auto) 4.3, Absolute Lymphs (auto) 1.77, Nucleated RBC % 0 06/13/19 13:30: Sodium 128 L, Potassium 3.7, Chloride 96 L, Carbon Dioxide 22.0, Anion Gap 10, BUN 4 L, Creatinine 0.56 L, Estim Creat Clear Calc 160.61, Est GFR (MDRD) Af Amer 196, Est GFR (MDRD) Non-Af 162, BUN/Creatinine Ratio 7.2 L, Glucose 104, Calcium 8.0 L 06/13/19 13:30: PT 11.9, INR 0.9 06/13/19 13:30: Ethyl Alcohol 235.0 06/13/19 13:30: Phosphorus 2.9, Magnesium 1.8 06/13/19 22:30: Urine Opiates Screen POSITIVE H, Urine Methadone Screen NEGATIVE, Ur Barbiturates Screen POSITIVE H, Ur Phencyclidine Scrn NEGATIVE, Ur Amphetamines Screen NEGATIVE, U Methamphetamin-MDMA NEGATIVE, U Benzodiazepines Scrn POSITIVE H, Urine Cocaine Screen NEGATIVE, U Cannabinoids Screen POSITIVE H , Ur Drug Screen Comment Current Medications Acetaminophen (Tylenol) 650 mg PO Q4H PRN PRN PRN Reason: fever, pain 1-10 Amlodipine Besylate (Norvasc) 10 mg PO DAILY [facility] Dicyclomine HCl (Bentyl) 20 mg PO Q6H PRN PRN PRN Reason: abdominal discomfort Famotidine (Pepcid) 20 mg PO BID [facility] Last Admin: 06/13/19 22:32 Dose: 20 mg Documented by: Folic Acid (Folic Acid) 1 mg PO DAILY@0800 [facility] Gabapentin (Neurontin) 300 mg PO Q8H PRN PRN PRN Reason: moderate to severe anxiety Hydralazine HCl (Apresoline Iv) 10 mg IV Q4H PRN PRN PRN Reason: SBP > 160 Hydroxyzine Pamoate (Vistaril Pamoate Capsule) 50 mg PO Q4H PRN PRN PRN Reason: mild anxiety Cefazolin Sodium 2 gm/ Sodium (Chloride) 110 mls @ 150 mls/hr IV X1 ONE Stop: 06/14/19 07:43 Lactated Ringer's () 1,000 mls @ 125 mls/hr IV .Q8H [facility] Last Admin: 06/14/19 04:04 Dose: 125 mls/hr Documented by: Loperamide HCl (Imodium) 2 mg PO Q4H PRN PRN PRN Reason: LOOSE STOOLS Losartan Potassium (Cozaar) 50 mg PO DAILY [facility] Morphine Sulfate () 2 - 4 mg IV Q4H PRN PRN PRN Reason: severe pain, 5-10 Last Admin: 06/14/19 04:03 Dose: 2 mg Documented by: Nicotine (Nicoderm Cq (Pbkc)) 21 mg TRANSDERM. DAILY [facility] Last Admin: 06/13/19 22:23 Dose: 21 mg Documented by: Ondansetron HCl (Zofran) 4 mg IV Q8H PRN PRN PRN Reason: Nausea Oxycodone HCl (Oxyir) 5 - 10 mg PO Q4H PRN PRN PRN Reason: Pain Score 4-10/10 Last Admin: 06/13/19 20:43 Dose: 10 mg Documented by: Phenobarbital (Phenobarbital) 97.2 mg PO Q4H [facility]; Taper Stop: 06/18/19 00:59 Last Admin: 06/14/19 04:23 Dose: 97.2 mg Documented by: Sodium Chloride () 10 - 40 ml IV UD PRN PRN Reason: SALINE FLUSH Thiamine HCl (Vitamin B1) 100 mg PO DAILYCM [place] Trazodone HCl (Desyrel) 100 mg PO QHS PRN PRN Reason: INSOMNIA Assessment/Plan All Active Problems Open fracture dislocation of ankle joint (Acute) Alcohol withdrawal (Acute) Alcoholism (Acute) Angioedema of lips (Acute) 1. Right spiral distal tibia and fibula shaft fractures, displaced 2. Right ankle posterior malleolus fracture, nondisplaced 3. Right nondisplaced second metatarsal fracture 4. Right nondisplaced third metatarsal fracture 5. Right nondisplaced fourth metatarsal fracture Natural history of the disease process and treatment options were discussed with the patient. Concerning the metatarsal and suspect cuneiform fracture these are nondisplaced bony injuries. Well these do represent a bony Lisfranc injury they appear to be stable and well aligned on imaging and in fact or not grossly visual on foot radiographs. We will keep these in mind moving forward and treat appropriate. Patient's postoperative treatment for the tibia fracture will involve a period of nonweightbearing which should be sufficient as well as immobilization for these fractures. Concerning the open tibia fracture and posterior malleolus fracture I did recommend for this patient that we proceed with irrigation debridement of the wound with open reduction and intramedullary nailing. I also recommended that in order to prevent displacement of the posterior malleolus fracture during nailing that we fix the posterior malleolus fracture as well. Risks and benefits of this procedure were discussed the patient including balance to blood loss, DVTs, PEs, nervous damage, infection, the risk of anesthesia include loss of life. We also discussed nonunions, malunions of both the foot and leg injuries. In addition due to the open fracture patient has a significant increase in risk of infection and nonunion. This was explained to the patient. Also explained to the patient with his tobacco use and alcohol use there is significant risk of nonunion or wound nonhealing issues. At this time our goal is to proceed with surgery in urgent manner first thing this morning. Patient demonstrates an understanding of this discussion and is able to sign informed consent. We also discussed compartment syndrome and potential for postoperative development of such symptoms. [facility] Office: Essential Procedure Criteria Procedure Essential: Yes Criteria Note: Patient has open tibia fracture which requires urgent treatment to prevent infection. Risk to Patient if Procedure Delayed: Threat of permanent dysfunction of an extremity or organ system
--- NOTE | 2019-06-14 06:55 | RAD_ITS ---
STUDY: X-RAY - RIGHT TIBIA AND FIBULA REASON FOR EXAM: Male, 53 years old. ORIF DISTAL TIB/ FIB FOR OPEN FRACTURE TECHNIQUE: 2 view(s) of the tibia and fibula were obtained. COMPARISON: Comparison is made with prior examination dated June 13, 2019. FINDINGS: Intraoperative imaging provided for intramedullary svitlana fixation placement to reduce a distal tibial fracture. There is good alignment. Persistent oblique fracture of the distal fibula. RAD/Tibia & Fibula 2 Views IMPRESSION: Intraoperative imaging provided for intramedullary svitlana fixation of the distal tibial fracture. There is good alignment. Electronically Signed: Colin Velez, at 10:42 EDT , Service support ,
--- NOTE | 2019-06-14 06:55 | NURSING ---
Report given to RESIDENTIAL SALES CONSULTANT at 0630 pt off floor to surgery at this time. Antibiotic sent with patient.
[2019-06-14] MEDS: Cefazolin 2 GM in 0.9% Normal Saline 100 ML IV ×3 (07:07→22:21)
[2019-06-14 07:11] LABS: Absolute Lymphocyte Count 1.11 X10^3/uL (0.83-4.51); Absolute Neutrophil Count 4.6 X10^3/uL (2.0-7.7); Basophil# 0.03 X10^3/uL; Basophil% 0.4 % (0-1); Eosinophil# 0.11 X10^3/uL; Eosinophils% 1.6 % (0-5); Hemoglobin 10.6 g/dL (13.0-16.5); Lymphocyte # 1.11 X10^3/ul (4.0); Lymphocyte % 15.7 % (19-41); Mean Corp Hgb Conc 34.2 g/dL (32-36); Mean Corpuscular Hgb 33.7 pg (27.0-32.0); Mean Corpuscular Volume 98.4 fL (80-94); Mean Platelet Vol. 10.7 fl (6.2-12.0); Monocyte# 1.17 X10^3/uL; Monocyte% 16.6 % (0-10); NRBC Flagged by Analyzer 0 % (0-5); Neutrophil # 4.59 X10^3/uL (2.7-7.7); Neutrophil % 65.1 % (47-70); Platelet Count 150 K/mm3 (150-450); RBC Distribution Width CV 13.4 % (11.6-14.6); RBC Distribution Width SD 48.1 fl (35.1-43.9); Red Blood Count 3.15 M/mm3 (4.6-6.2); White Blood Count 7.1 K/mm3 (4.4-11.0)
[2019-06-14 07:30] LABS: AST(SGOT) 71 U/L (15-37); Alanine Aminotransfer ALT/SGPT 64 U/L (16-61); Alkaline Phosphatase 117 U/L (45-117); Anion Gap 12 (5-15); BUN 4 mg/dL (7-18); Calcium,Total 7.8 mg/dL (8.5-10.1); Chloride 95 mmol/L (98-107); Creatinine, Serum 0.36 mg/dL (0.70-1.30); EST Glomerular Filtration Rate 266 mL/min (>60); Est Glom Filt Rate - Afr Amer 322 mL/min (>60); Estimated Creatinine Clearance 249.84 ml/min; Globulin 3.1 g/dL (2.2-4.2); Glucose 67 mg/dL (74-106); Potassium 3.4 mmol/L (3.5-5.1); Protein, Total 6.1 g/dL (6.4-8.2); Sodium Level 128 mmol/L (136-145)
[2019-06-14 08:02] LABS: Prothrombin Time (Protime)PT. 12.8 SECONDS (11.7-14.9)
[2019-06-14 08:03] LABS: Partial Thromboplast Time 30.8 Seconds (24.1-36.2)
--- NOTE | 2019-06-14 09:10 | PCM.OPRPT ---
Report of Operation Date of Procedure: 06/14/19 Pre-Operative Diagnosis: Right grade 1 open spiral distal tibia/fibula shaft fracture. Right ankle posterior malleolus fracture. Right second metatarsal fracture. Right third metatarsal fracture. Right fourth metatarsal fracture Post-Operative Diagnosis: Right grade 1 open spiral distal tibia/fibula shaft fracture. Right ankle posterior malleolus fracture. Right proximal fibula fracture. Right second metatarsal fracture. Right third metatarsal fracture. Right fourth metatarsal fracture Surgery/Procedure Performed:: Intramedullary nail right tibia. Open reduction internal fixation right posterior malleolus ankle fracture. Stress exam under anesthesia right ankle. Irrigation debridement right open tibia fracture. Nonoperative treatment without manipulation. Right second metatarsal fracture. Right third metatarsal fracture. Right fourth metatarsal fracture Description of Surgical Findings:: Patient had no visible gross debris in the wound. Fracture was adequately reduced. Length alignment and rotation were verified. director of ancillary services: Caterina Solis Type of Anesthesia:: General Anesthesiologist: Paddy Wiseman Special Medications: 2 g Ancef Estimated Blood Loss (mL): 200 Fluids Replaced: 700 mL crystalloid Description of Procedure: On the day of the procedure patient was brought back down to the operating room where the right lower extremity was marked. Patient was consented for surgery and brought back to the operating room. Patient was anesthetized on the bed. Anesthesia assumed control of the C-spine and airway and patient was transferred to the operating room table in the supine position. Bump was placed under the right hip. All bony prominences identified well-padded. Blankets were placed underneath the right leg elevated for radiographs during surgery. After appropriate positioning the splint was removed and we were able to fully review the patient's wound. Patient had a small inside out puncture wound over the distal shaft of the fracture. There were fracture blisters as well. Fracture blisters were unroofed and the extremity was prepped with Betadine. Surgeon and psychological assistant and scrub. Upon reentering the room the right lower extremity was draped in a standard orthopedic fashion. Incisions were marked out and timeout was called. Everyone agreed upon the side, the site, the procedure to be performed, patient's identity and antibiotics given. At this time the leg was elevated and the knee was flexed and tourniquet was placed up to 250 mmHg. Attention was first directed towards the distal wound which was right over the distal tip of the fracture. This was extended proximally and distally 2 to 3 cm for appropriate debridement. Bone ends were delivered out the wound. No gross debris was appreciated. The wound was irrigated out with 6 L of normal saline under low-pressure lavage. After appropriate irrigating the wound and evacuating the fracture hematoma we could introduce a bone clamp and reduce the fracture. Live x-ray was used to verify fracture reduction of the tibial shaft fracture. Once were happy with this we directed our attention to the ankle with posterior malleolus fixation. After we verified it was adequately reduced with live x-ray a single lag screw by technique A to P screw was placed. This was done by making a fluoroscopic guided skin incision and bluntly dissecting down to the bone. Once we did this a 3.5 mm drill was used to drill the near cortex. A Top-Hat was placed and a 2.5 mm drill was used to drill the posterior cortex. This was measured and the screw was placed in a to P. Live x-ray was used to verify fracture remained adequately reduced and screw was of adequate length. Once we are completed here we directed our attention up towards the knee to proceed with the intramedullary nail. A 4 cm incision was made proximal to the patella down through skin and through the quadriceps. Once this was completed patella was retracted laterally and the cannula was placed in the patellofemoral joint. Once this was completed live x-ray was used to verify placement of the guidepin. Should be noted that as we were visualizing the proximal tibia we also noted a proximal fibula fracture. The guidepin was introduced into the proximal tibia. With the cannula still in the joint the proximal entry reamer was used to ream the proximal shaft. Once was completed the ball-tipped guidewire was introduced. Live x-rays used to introduce it past the fracture. At this point we still had a well-maintained fracture reduction which we could also verified by direct visualization looking at the clamp where we had to irrigate and debride the fracture. Once we are happy with our guidewire placement we sequentially reamed up to 11 mm with good chatter in the diaphysis. Based on this and our previous measurement we got a 38 cm 10 mm nail which was fastened to the guide. This was then placed through the joint into the tibia. As we were introducing it into the tibia we met some resistance as were going to the fracture. We carefully backed out the nail use live x-ray to guide the nail past the fracture. Due to the comminution of the fracture despite our reduction clamp the fracture wanted to go into valgus alignment. After verifying appropriate positioning of a lateral blocking screw a lateral blocking screw was placed and were able to maintain appropriate reduction. The lateral blocking screw was placed using live x-ray to verify positioning nicking the skin with a knife and bluntly dissecting down to the bone. This was placed while the clamp was still on and traction was being placed. The nail was then introduced down. We did note that as we introduced the nail and the distal fragment there was some proximal comminution however the articular fragments remained intact and the fracture was somewhat distracted. Once the nail was appropriately in the distal fragment we then moved the guidewire and placed 2 locking screws distally using appropriate [place] technique and protecting the soft tissues. Using the fracture site where we had the clamp we could verify appropriate rotation of the fracture. We also noted that the tibial tubercle lined up with the second metatarsal. We then backslapped the femoral nail. To get compression. Once we had adequate alignment on AP and lateral views a proximal locking screw was placed in the nail. Final x-rays were taken after removing all guides. Distally the wound was closed with 2-0 Vicryl and nylon retention sutures. Distal screw holes were closed with 3-0 nylon. Proximally the wound arthrotomy was irrigated out again as well as the distal wound prior to closure. #1 Vicryl was used to close the arthrotomy and deep fatty layer. Skin was closed with adrienne. Proximal interlocking screw incision was closed with skin adrienne. Once this was done live x-ray was again used to do a stress examination of the ankle. Leg was internally rotated and appropriate mortise view was obtained. External rotation was placed on the foot and ankle and no widening appeared. Sterile dressings were then placed on the wound. Well-padded posterior splint was placed. Patient was awakened by anesthesia and transferred to PACU for recovery. Compartments remain soft throughout the procedure. Postoperative plan: Aggressive ice and elevation, 24 hours of antibiotics. Nonweightbearing for a total of 6 weeks with protected weightbearing as directed by foot and tibia radiographs in the boot for an additional 6 weeks. Ankle range of motion can begin at 2 weeks. Aspirin for DVT prophylaxis. Grafts/Implants Used: S & N intramedullary tibial nail 38cm x 10 mm, Synthes 3.5mm lag screw - Complications Upon introducing the nail into the fracture there was some further displacement of the fragments. - Admit VTE Documentation VTE Present on Admission: No VTE Mechan Device Prophylaxis: SCD's, Thigh High ZAYNAB Hose VTE Pharm Prophylaxis ordered?: Yes
--- NOTE | 2019-06-14 10:14 | RAD_ITS ---
STUDY: X-RAY - RIGHT TIBIA AND FIBULA REASON FOR EXAM: Male, 53 years old. POST OP ORIF TIB/FIB FX TECHNIQUE: 2 view(s) of the tibia and fibula were obtained. COMPARISON: Comparison is made with prior study done earlier today. FINDINGS: The patient is status post intramedullary svitlana fixation of a distal tibial fracture. There is good alignment. Stable oblique fracture of the distal fibula. Postoperative soft tissue changes. RAD/Tibia & Fibula 2 Views IMPRESSION: Status post open reduction internal fixation of the distal tibial fracture utilizing an intramedullary svitlana fixation device. There is good alignment. Stable oblique fracture of the distal fibular shaft. Electronically Signed: Colin Velez, at 10:42 EDT , Service support ,
[2019-06-14] MEDS: amLODIPine 10 MG Tablet PO (12:25)
[2019-06-14] MEDS: Folic Acid 1 MG Tablet PO (12:25)
[2019-06-14] MEDS: Losartan Potassium 50 MG Tablet PO (12:25)
[2019-06-14] MEDS: Thiamine Hydrochloride 100 MG Tablet PO (12:26)
[2019-06-14] MEDS: Aspirin 81 MG TAB.CHEW PO ×2 (12:26→16:15)
[2019-06-14] MEDS: Famotidine 20 MG Tablet PO ×2 (12:26→22:20)
--- NOTE | 2019-06-14 15:19 | PN_ITS ---
<Allison Loomis - Last Filed: 06/14/19 16:16> Patient Problems: Active and Suspected Problems Open fracture dislocation of ankle joint (Acute) Subjective: Patient seen and examined. Underwent intramedullary nail right tibia, open reduction internal fixation right posterior malleolus ankle fracture by Dr. Felipe this morning. Resting comfortably. No active withdrawal symptoms. - Physical Exam Vitals/I&O's: Vital Signs Temp Pulse Resp BP Pulse Ox 97.2 F L 86 16 108/55 L 97 06/14/19 14:09 06/14/19 14:09 06/14/19 14:09 06/14/19 14:09 06/14/19 14:09 Oxygen Flow Rate (L/min) 2 Oxygen Delivery Method Room Air Weight: 179 lb 0.246 oz Body Mass Index (BMI) 25.0 Intake and Output for Last 24 Hours 06/12/19 06/13/19 06/14/19 23:59 23:59 23:59 Intake Total 110 / 110 2318.33 / 2318.33 Output Total 1900 / 1900 550 / 550 Balance -1790 / -1790 1768.33 / 1768.33 General: Alert, Oriented x3, Cooperative HEENT: Atraumatic, PERRLA, EOMI, Normocephalic Neck: Supple, No JVD, Negative Carotid Bruits Lungs: Clear to auscultation, Normal air movement Cardiovascular: Regular rate, Regular Rhythm, Normal S1, Normal S2, No murmurs Abdomen: Bowel Sounds Present, Soft, Non Tender, Non-Distended Extremities: No clubbing, No cyanosis, No edema, Capillary Refill Less than 3 Seconds Skin: No rashes, No breakdown, - - Right leg postop dressing intact Musculoskeletal: No Tenderness to Palpation of Joints or Extremities Neurological: Cranial nerves II-XII grossly intact, Neuro grossly intact Psych/Mental Status: Normal Affect, Appropriate Laboratory Results 06/13/19 13:30: Phosphorus 2.9, Magnesium 1.8 06/13/19 22:30: Urine Opiates Screen POSITIVE H, Urine Methadone Screen NEGATIVE, Ur Barbiturates Screen POSITIVE H, Ur Phencyclidine Scrn NEGATIVE, Ur Amphetamines Screen NEGATIVE, U Methamphetamin-MDMA NEGATIVE, U Benzodiazepines Scrn POSITIVE H, Urine Cocaine Screen NEGATIVE, U Cannabinoids Screen POSITIVE H , Ur Drug Screen Comment 06/14/19 06:15: WBC 7.1, RBC 3.15 L, Hgb 10.6 L, Hct 31.0 L, MCV 98.4 H, MCH 33.7 H, MCHC 34.2, RDW Std Deviation 48.1 H, RDW Coeff of Wen 13.4, Plt Count 150, MPV 10.7, Immature Gran % (Auto) 0.600, Neut % (Auto) 65.1, Lymph % (Auto) 15.7 L, Wilkes % (Auto) 16.6 H, Eos % (Auto) 1.6, Baso % (Auto) 0.4, Absolute Neuts (auto) 4.6, Absolute Lymphs (auto) 1.11, Nucleated RBC % 0 06/14/19 06:15: PT 12.8, INR 1.0, APTT 30.8 06/14/19 06:15: Sodium 128 L, Potassium 3.4 L, Chloride 95 L, Carbon Dioxide 21.0, Anion Gap 12, BUN 4 L, Creatinine 0.36 L, Estim Creat Clear Calc 249.84, Est GFR (MDRD) Af Amer 322, Est GFR (MDRD) Non-Af 266, BUN/Creatinine Ratio 11.0, Glucose 67 L, Calcium 7.8 L, Total Bilirubin 0.80, AST 71 H, ALT 64 H, Alkaline Phosphatase 117, Total Protein 6.1 L, Albumin 3.0 L, Globulin 3.1, Albumin/Globulin Ratio 1.0 Current Medications Acetaminophen (Tylenol) 650 mg PO Q4H PRN PRN PRN Reason: fever, pain 1-10 Albuterol/Ipratropium (Duoneb) 3 ml INHALATION Q4HWA.RT PRN PRN Reason: SOB &/OR WHEEZING Amlodipine Besylate (Norvasc) 10 mg PO DAILY [facility] Last Admin: 06/14/19 12:25 Dose: 10 mg Documented by: [facility]ir[facility] ([facility], [facility]) [facility] Last Admin: 06/14/19 12:26 Dose: 81 mg Documented by: Dicyclomine HCl (Bentyl) 20 mg PO Q6H PRN PRN PRN Reason: abdominal discomfort Famotidine (Pepcid) 20 mg PO BID [facility] Last Admin: 06/14/19 12:26 Dose: 20 mg Documented by: Folic Acid (Folic Acid) 1 mg PO DAILY@0800 [facility] Last Admin: 06/14/19 12:25 Dose: 1 mg Documented by: Gabapentin (Neurontin) 300 mg PO Q8H PRN PRN PRN Reason: moderate to severe anxiety Hydralazine HCl (Apresoline Iv) 10 mg IV Q4H PRN PRN PRN Reason: SBP > 160 Hydroxyzine Pamoate (Vistaril Pamoate Capsule) 50 mg PO Q4H PRN PRN PRN Reason: mild anxiety Lactated Ringer's () 1,000 mls @ 125 mls/hr IV .Q8H [facility] Last Infusion: 06/14/19 14:06 Dose: 0 mls/hr Documented by: Cefazolin Sodium 2 gm/ Sodium (Chloride) 110 mls @ 150 mls/hr IV Q8H [facility] Stop: 06/14/19 23:43 Last Admin: 06/14/19 14:06 Dose: 150 mls/hr Documented by: Loperamide HCl (Imodium) 2 mg PO Q4H PRN PRN PRN Reason: LOOSE STOOLS Losartan Potassium (Cozaar) 50 mg PO DAILY [facility] Last Admin: 06/14/19 12:25 Dose: 50 mg Documented by: Morphine Sulfate () 2 - 4 mg IV Q4H PRN PRN PRN Reason: severe pain, 5-10 Last Admin: 06/14/19 04:03 Dose: 2 mg Documented by: Nicotine (Nicoderm Cq (Pbkc)) 21 mg TRANSDERM. DAILY [facility] Last Admin: 06/14/19 12:25 Dose: 21 mg Documented by: Ondansetron HCl (Zofran) 4 mg IV Q8H PRN PRN PRN Reason: Nausea Oxycodone HCl (Oxyir) 5 - 10 mg PO Q4H PRN PRN PRN Reason: Pain Score 4-10/10 Last Admin: 06/13/19 20:43 Dose: 10 mg Documented by: Phenobarbital (Phenobarbital) 97.2 mg PO Q4H [facility]; Taper Stop: 06/18/19 00:59 Last Admin: 06/14/19 12:25 Dose: 97.2 mg Documented by: Sodium Chloride () 10 - 40 ml IV UD PRN PRN Reason: SALINE FLUSH Thiamine HCl ([facility]itamin B1) [facility] Last Admin: 06/14/19 12:26 Dose: 100 mg Documented by: Trazodone HCl (Desyrel) 100 mg PO QHS PRN PRN Reason: INSOMNIA Medical Necessity - Tobacco Use Smoking Status: Current every day smoker - 2 pack/day cigarette tobacco usage starting when he was 15 years old but increasing over the last year. Tobacco Use: Cigarettes Assessment/Plan All Active Problems Open fracture dislocation of ankle joint (Acute) Alcohol withdrawal (Acute) Alcoholism (Acute) Angioedema of lips (Acute) 1. Mechanical fall prior to admission S/P intramedullary nail right tibia, open reduction internal fixation right posterior malleolus ankle fracture by Dr. Felipe 06/14/19. Management per ortho. PT/OT. PRN pain regimen. 2. Acute alcohol withdrawal on chronic alcohol abuse-recent discharge 06/11/2019 following treatment for alcohol withdrawal and declined inpatient treatment at that time. Phenobarb taper, CIWA protocol during admission. Continue thiamine, folate, multivitamin. Consult [facility] for further evaluation. 3. Acute on chronic Hyponatremia-secondary to #2. Trend BMP. 4. Tobacco dependence-encourage cessation. 5. Abnormal LFTs-outpatient follow-up. 6. Hypertension-continue home amlodipine, losartan regimen. 7. GERD-continue Pepcid. 8. History of intracranial hemorrhage (cerebral hemorrhage): secondary to fall 04/14/[address] head notable for right posterior brainstem hyperdensity concerning for hemorrhage which was transferred to [facility]. 9. Chronic macrocytic anemia: stable, trend cbc. DVT prophylaxis- SCDs This patient was seen by STEW Carroll under the supervision of Dr. Jordan. <Russell Jordan - Last Filed: 06/14/19 16:27> Subjective: Seen and examined. Patient had intramedullary nail of right tibia. Has history of chronic alcohol use and smoking cigarettes. Currently not alcohol withdrawal symptoms. - Physical Exam Vitals/I&O's: Vital Signs Temp Pulse Resp BP Pulse Ox 98.2 F 94 18 115/80 95 06/14/19 16:09 06/14/19 16:09 06/14/19 16:09 06/14/19 16:09 06/14/19 16:09 Oxygen Flow Rate (L/min) 2 Oxygen Delivery Method Room Air Weight: 179 lb 0.246 oz Body Mass Index (BMI) 25.0 Intake and Output for Last 24 Hours 06/12/19 06/13/19 06/14/19 23:59 23:59 23:59 Intake Total 110 / 110 2428.33 / 2428.33 Output Total 1900 / 1900 550 / 550 Balance -1790 / -1790 1878.33 / 1878.33 General: Alert, Oriented x3, Cooperative HEENT: Atraumatic, PERRLA, EOMI, Normocephalic Neck: Supple, No JVD, Negative Carotid Bruits Lungs: Diminished - Air entry is diminished in bilateral lungs., Wheezes - Bilateral fine expiratory wheezing present. Cardiovascular: Regular rate, Normal S1, Normal S2, No murmurs Abdomen: Bowel Sounds Present, Soft, Non Tender, Non-Distended Extremities: No edema, Capillary Refill Less than 3 Seconds Skin: - - Right leg postop dressing intact Status post surgery. Musculoskeletal: No Tenderness to Palpation of Joints or Extremities Neurological: Cranial nerves II-XII grossly intact Psych/Mental Status: Normal Affect, Appropriate Laboratory Results 06/13/19 13:30: Phosphorus 2.9, Magnesium 1.8 06/13/19 22:30: Urine Opiates Screen POSITIVE H, Urine Methadone Screen NEGATIVE, Ur Barbiturates Screen POSITIVE H, Ur Phencyclidine Scrn NEGATIVE, Ur Amphetamines Screen NEGATIVE, U Methamphetamin-MDMA NEGATIVE, U Benzodiazepines Scrn POSITIVE H, Urine Cocaine Screen NEGATIVE, U Cannabinoids Screen POSITIVE H , Ur Drug Screen Comment 06/14/19 06:15: WBC 7.1, RBC 3.15 L, Hgb 10.6 L, Hct 31.0 L, MCV 98.4 H, MCH 33.7 H, MCHC 34.2, RDW Std Deviation 48.1 H, RDW Coeff of Wen 13.4, Plt Count 150, MPV 10.7, Immature Gran % (Auto) 0.600, Neut % (Auto) 65.1, Lymph % (Auto) 15.7 L, Wilkes % (Auto) 16.6 H, Eos % (Auto) 1.6, Baso % (Auto) 0.4, Absolute Neuts (auto) 4.6, Absolute Lymphs (auto) 1.11, Nucleated RBC % 0 06/14/19 06:15: PT 12.8, INR 1.0, APTT 30.8 06/14/19 06:15: Sodium 128 L, Potassium 3.4 L, Chloride 95 L, Carbon Dioxide 21.0, Anion Gap 12, BUN 4 L, Creatinine 0.36 L, Estim Creat Clear Calc 249.84, Est GFR (MDRD) Af Amer 322, Est GFR (MDRD) Non-Af 266, BUN/Creatinine Ratio 11.0, Glucose 67 L, Calcium 7.8 L, Total Bilirubin 0.80, AST 71 H, ALT 64 H, Alkaline Phosphatase 117, Total Protein 6.1 L, Albumin 3.0 L, Globulin 3.1, Albumin/Globulin Ratio 1.0 Current Medications Acetaminophen (Tylenol) 650 mg PO Q4H PRN PRN PRN Reason: fever, pain 1-10 Albuterol/Ipratropium (Duoneb) 3 ml INHALATION Q4HWA.RT PRN PRN Reason: SOB &/OR WHEEZING Amlodipine Besylate (Norvasc) 10 mg PO DAILY [facility] Last Admin: 06/14/19 12:25 Dose: 10 mg Documented by: Aspirin ([facility]in, Baby) [facility] Last Admin: 06/14/19 12:26 Dose: 81 mg Documented by: Dicyclomine HCl (Bentyl) 20 mg PO Q6H PRN PRN PRN Reason: abdominal discomfort Famotidine (Pepcid) 20 mg PO BID [facility] Last Admin: 06/14/19 12:26 Dose: 20 mg Documented by: Folic Acid (Folic Acid) 1 mg PO DAILY@0800 [facility] Last Admin: 06/14/19 12:25 Dose: 1 mg Documented by: Gabapentin (Neurontin) 300 mg PO Q8H PRN PRN PRN Reason: moderate to severe anxiety Hydralazine HCl (Apresoline Iv) 10 mg IV Q4H PRN PRN PRN Reason: SBP > 160 Hydroxyzine Pamoate (Vistaril Pamoate Capsule) 50 mg PO Q4H PRN PRN PRN Reason: mild anxiety Lactated Ringer's () 1,000 mls @ 125 mls/hr IV .Q8H [facility] Last Infusion: 06/14/19 14:50 Dose: 125 mls/hr Documented by: Cefazolin Sodium 2 gm/ Sodium (Chloride) 110 mls @ 150 mls/hr IV Q8H [facility] Stop: 06/14/19 23:43 Last Infusion: 06/14/19 14:50 Dose: Infused Documented by: Loperamide HCl (Imodium) 2 mg PO Q4H PRN PRN PRN Reason: LOOSE STOOLS Losartan Potassium (Cozaar) 50 mg PO DAILY [facility] Last Admin: 06/14/19 12:25 Dose: 50 mg Documented by: Morphine Sulfate () 2 - 4 mg IV Q4H PRN PRN PRN Reason: severe pain, 5-10 Last Admin: 06/14/19 04:03 Dose: 2 mg Documented by: Nicotine (Nicoderm Cq (Pbkc)) 21 mg TRANSDERM. DAILY [facility] Last Admin: 06/14/19 12:25 Dose: 21 mg Documented by: Ondansetron HCl (Zofran) 4 mg IV Q8H PRN PRN PRN Reason: Nausea Oxycodone HCl (Oxyir) 5 - 10 mg PO Q4H PRN PRN PRN Reason: Pain Score 4-10/10 Last Admin: 06/13/19 20:43 Dose: 10 mg Documented by: Phenobarbital (Phenobarbital) 97.2 mg PO Q4H [facility]; Taper Stop: 06/18/19 00:59 Last Admin: 06/14/19 12:25 Dose: 97.2 mg Documented by: Sodium Chloride () 10 - 40 ml IV UD PRN PRN Reason: SALINE FLUSH Thiamine HCl (Vitamin B1) 100 mg PO DAILYCM [facility] Last Admin: 06/14/19 12:26 Dose: 100 mg Documented by: Trazodone HCl (Desyrel) 100 mg PO QHS PRN PRN Reason: INSOMNIA Assessment/Plan This patient was seen in conjunction with CONDUIT MECHANICAllison. I have independently interviewed and examined the patient and reviewed pertinent history, examination findings, laboratory and plan of management. I have reviewed the note and agree with the documented findings with the few additional points. In brief, patient is 53-year-old patient gentleman is admitted for right distal tibial fibular shaft and ankle fracture. He was carrying a big spring box and tripped on the floor causing ankle twist and fracture. He had right open spiral distal tibia/fibula shaft fracture, right ankle posterior malleolus fracture, r ight proximal fibular fracture, right second third and fourth metatarsal fracture. Patient had ORIF and intramedullary nailing done. On pain medication, incentive spirometry, PT and OT and DVT prophylaxis. Patient probably has COPD with chronic wheezing and about 30 pack years of smoking. Never had PFT. Chest x-ray reported as no acute cardiopulmonary disease. Patient is also on phenobarbital regimen for alcohol withdrawal syndrome treatment. On thiamine, folic and methadone. Patient is patient has chronic hyponatremia and his sodium did not improve on IV fluid. Probably beer protomania and alcoholic hepatitis. ALT 64, AST 71. Total bili normal. Other comorbidities as mentioned above including hypertension, GERD and history of intracranial hemorrhage and chronic macrocytic anemia. Serum folate and B12 ordered. I have discussed my assessment with CONDUIT MECHANICAllison and orders have been reviewed.. Inpatient E&M: 05341 Subs Hosp L2
[2019-06-14] MEDS: Acetaminophen 325 MG Tablet 650 MG PO (16:15)
[2019-06-14] MEDS: oxyCODONE 5 MG Tablet PO ×2 (16:16→20:16)
[2019-06-14] MEDS: Ipratropium/Albuterol Sulfate 3 ML AMPUL.NEB INHALATION (19:40)
[2019-06-15] MEDS: Phenobarbital 32.4 MG Tablet 64.8 MG PO ×4 (00:14→11:10)
[2019-06-15] MEDS: Acetaminophen 325 MG Tablet 650 MG PO (00:15)
[2019-06-15 00:17] VITALS: BP 125/78; PULSE 78; RESP 16; TEMP 36.7; O2SAT 99
[2019-06-15 04:08] VITALS: BP 133/72; PULSE 85; RESP 16; TEMP 36.5; O2SAT 98
[2019-06-15] MEDS: Morphine 4 MG/ML Syringe IV (05:50)
[2019-06-15] MEDS: oxyCODONE 5 MG Tablet PO (07:31)
[2019-06-15 07:45] LABS: Hematocrit 26.1 % (40-54); Hemoglobin 8.9 g/dL (13.0-16.5); Mean Corp Hgb Conc 34.1 g/dL (32-36); Mean Corpuscular Hgb 33.7 pg (27.0-32.0); Mean Corpuscular Volume 98.9 fL (80-94); Mean Platelet Vol. 10.4 fl (6.2-12.0); Platelet Count 141 K/mm3 (150-450); RBC Distribution Width CV 13.2 % (11.6-14.6); RBC Distribution Width SD 47.5 fl (35.1-43.9); Red Blood Count 2.64 M/mm3 (4.6-6.2)
[2019-06-15 08:24] LABS: Vitamin B12 852 pg/mL (211-911)
[2019-06-15 08:44] VITALS: BP 120/78; PULSE 87; RESP 18; TEMP 36.7; O2SAT 99
[2019-06-15] MEDS: Folic Acid 1 MG Tablet PO (08:46)
[2019-06-15] MEDS: Aspirin 81 MG TAB.CHEW PO (08:46)
[2019-06-15] MEDS: amLODIPine 10 MG Tablet PO (08:46)
[2019-06-15] MEDS: Famotidine 20 MG Tablet PO (08:47)
[2019-06-15] MEDS: Thiamine Hydrochloride 100 MG Tablet PO (08:47)
[2019-06-15] MEDS: Losartan Potassium 50 MG Tablet PO (08:47)
[2019-06-15 08:52] LABS: Anion Gap 5 (5-15); BUN 3 mg/dL (7-18); BUN/Creat Ratio 6.7 RATIO (10-20); Calcium,Total 7.6 mg/dL (8.5-10.1); Chloride 96 mmol/L (98-107); Creatinine, Serum 0.44 mg/dL (0.70-1.30); EST Glomerular Filtration Rate 210 mL/min (>60); Est Glom Filt Rate - Afr Amer 254 mL/min (>60); Estimated Creatinine Clearance 204.41 ml/min; Glucose 114 mg/dL (74-106); Magnesium 1.7 mg/dL (1.6-2.6); Potassium 3.7 mmol/L (3.5-5.1); Sodium Level 129 mmol/L (136-145)
--- NOTE | 2019-06-15 09:28 | CASEMGMT ---
AISSATOU HUBER assessment: Face to Face with patient for initial transition planning/care coordination assessment. AISSATOU HUBER introduced self and role at [facility], pt voices understanding and consents to assessment at this time. Pt is sitting up in bed in no distress at this time. Pt is A/Ox4 at this time and answers all questions appropriately at this time. Care providers, pharmacy, and demographics verified/updated at this time. Presentation: Presented via EMS, Open fx right ankle Admitting dx: Open fx right ankle PCP: Herminia WALLER Specialists: Pt states no current specialists at this time. Preferred [facility]acy: [facility] Insurance: [employer] Prescription Benefit: [employer] Living Will/HPOA: Pt states does not have LW/HPOA but states would like info at this time. Pt states has requested info the last several visits, but never received anything. This AISSATOU HUBER immediately took AD info back to pt at this time and placed in pt's admit folder at this time per his request. LNOK: Andrés Parsons, life partner/roommate; Dannie Velazco, brother Living Arrangements: Pt states lives with roommate in apt with only a few steps in and states no concerns at home at this time. Pt states is normally independent with ADL's. Transportation: Pt states roommate drives and states no transportation concerns at this time. DME/HHC: Pt states has a cane at home but no other DME at this time. Pt to be set up with [facility] at discharge and states no preference for DME company at this time. Pt states no hx of HHC or SNF in the past. Pt states no concerns with going home at time of discharge. Pt is currently unemployed. Pt states smokes about a pack/day and normally drinks about 12 beers daily but states 'I am not going to drink anymore.' Pt declines consult to [facility] at this time and pointing to fractured leg, states 'I need to take care of this before I can worry about anything else.' Pt states no further concerns/needs at this time. CM to follow for any further discharge planning/needs. Advised pt to ask for CM if any further questions/concerns/needs arise, voices understanding. Pt Goal: Home Plan: Home w/ HHC, [facility]. [place] AISSATOU HUBER
--- NOTE | 2019-06-15 10:55 | CASEMGMT ---
Addendum entered by Paz Scott 06/15/19 11:48: Christelle at [facility] aware that pt to be discharged today. D/C instructions faxed to [facility] at this time and summary will be sent once obtained. Tito REYEZ CM Original Note: Per therapy, pt will need discharged with [facility] and [facility], if pt agreeable. Pt is agreeable and states no preference for DME/HHC company at this time. Pt declines list of in-network companies for either at this time and states 'I don't care, just set it up.' After call to multiple agencies on in-network list, [facility] states they take [facility] and can staff at this time. [facility] is aware that pt to be discharged home today, voices understanding. Referral faxed to them at this time. Tito REYEZ CM
--- NOTE | 2019-06-15 11:00 | PCM.PN.ORT ---
Patient Problems: Active and Suspected Problems Open fracture dislocation of ankle joint (Acute) Subjective: The patient was sitting in bedside chair upon examination. Patient denies any chest pain, shortness of breath, dizziness, lightheadedness, nausea or vomiting, or calf pain. Pain is controlled on medications. No adverse overnight events. Patient is currently using oxycodone for pain control. Plan will be for discharge home today. Patient states he had some increased pain with transfer over to the chair. He was tolerating the walker with therapy. Patient denies numbness and tingling into the right lower extremity. Objective: Vital signs stable and afebrile. Patient is able to plantarflex and dorsiflex actively. Dressing with posterior short leg splint is without breakthrough drainage and is clean dry and intact. negative signs and symptoms of DVT. Patient is able to wiggle his toes. Capillary refill is less than 2 seconds. Sensation intact to the toes. - Physical Exam Vitals/I&O's: Vital Signs Temp Pulse Resp BP Pulse Ox 98.0 F 87 18 120/78 99 06/15/19 08:44 06/15/19 08:44 06/15/19 08:44 06/15/19 08:44 06/15/19 08:44 Oxygen Flow Rate (L/min) 2 Oxygen Delivery Method Room Air Weight: 81.2 kg Body Mass Index (BMI) 25.0 Intake and Output for Last 24 Hours 06/13/19 06/14/19 06/15/19 23:59 23:59 23:59 Intake Total 110 / 110 4284.16 / 4484.16 1541.17 / 1541.17 Output Total 1900 / 1900 1550 / 2300 3100 / 3100 Balance -1790 / -1790 2734.16 / 2184.16 -1558.83 / -1558.83 General: Alert, Oriented x3, Cooperative, No apparent distress Laboratory Results 06/15/19 07:15: WBC 6.0, RBC 2.64 L, Hgb 8.9 L, Hct 26.1 L, MCV 98.9 H, MCH 33.7 H, MCHC 34.1, RDW Std Deviation 47.5 H, RDW Coeff of Wen 13.2, Plt Count 141 L, MPV 10.4 06/15/19 07:15: Sodium 129 L, Potassium 3.7, Chloride 96 L, Carbon Dioxide 28.0, Anion Gap 5, BUN 3 L, Creatinine 0.44 L, Estim Creat Clear Calc 204.41, Est GFR (MDRD) Af Amer 254, Est GFR (MDRD) Non-Af 210, BUN/Creatinine Ratio 6.7 L, Glucose 114 H, Calcium 7.6 L, Magnesium 1.7, Folate 25.00 06/15/19 07:15: Vitamin B12 852 Current Medications Acetaminophen (Tylenol) 650 mg PO Q4H PRN PRN PRN Reason: fever, pain 1-10 Last Admin: 06/15/19 00:15 Dose: 650 mg Documented by: Albuterol/Ipratropium (Duoneb) 3 ml INHALATION Q4HWA.RT PRN PRN Reason: SOB &/OR WHEEZING Last Admin: 06/14/19 19:40 Dose: 3 ml Documented by: Amlodipine Besylate (Norvasc) 10 mg PO DAILY [facility] Last Admin: 06/15/19 08:46 Dose: 10 mg Documented by: [facility], [facility]) [facility] Last Admin: 06/15/19 08:46 Dose: 81 mg Documented by: Dicyclomine HCl (Bentyl) 20 mg PO Q6H PRN PRN PRN Reason: abdominal discomfort Famotidine (Pepcid) 20 mg PO BID [facility] Last Admin: 06/15/19 08:47 Dose: 20 mg Documented by: Folic Acid (Folic Acid) 1 mg PO DAILY@0800 [facility] Last Admin: 06/15/19 08:46 Dose: 1 mg Documented by: Gabapentin (Neurontin) 300 mg PO Q8H PRN PRN PRN Reason: moderate to severe anxiety Hydralazine HCl (Apresoline Iv) 10 mg IV Q4H PRN PRN PRN Reason: SBP > 160 Hydroxyzine Pamoate (Vistaril Pamoate Capsule) 50 mg PO Q4H PRN PRN PRN Reason: mild anxiety Loperamide HCl (Imodium) 2 mg PO Q4H PRN PRN PRN Reason: LOOSE STOOLS Losartan Potassium (Cozaar) 50 mg PO DAILY [facility] Last Admin: 06/15/19 08:47 Dose: 50 mg Documented by: Meloxicam (Mobic) 7.5 mg PO BID [facility] Morphine Sulfate () 2 - 4 mg IV Q4H PRN PRN PRN Reason: severe pain, 5-10 Last Admin: 06/15/19 05:50 Dose: 2 mg Documented by: Nicotine (Nicoderm Cq (Pbkc)) 21 mg TRANSDERM. DAILY [facility] Last Admin: 06/15/19 08:47 Dose: 21 mg Documented by: Ondansetron HCl (Zofran) 4 mg IV Q8H PRN PRN PRN Reason: Nausea Oxycodone HCl (Oxyir) 5 - 10 mg PO Q4H PRN PRN PRN Reason: Pain Score 4-10/10 Last Admin: 06/15/19 07:31 Dose: 10 mg Documented by: Pantoprazole Sodium (Protonix) 40 mg PO DAILY [facility] Phenobarbital (Phenobarbital) 64.8 mg PO Q4H [facility]; Taper Stop: 06/18/19 00:59 Last Admin: 06/15/19 08:51 Dose: 64.8 mg Documented by: Sodium Chloride () 10 - 40 ml IV UD PRN PRN Reason: SALINE FLUSH Thiamine HCl (Vitamin B1) [facility] Last Admin: 06/15/19 08:47 Dose: 100 mg Documented by: Trazodone HCl (Desyrel) 100 mg PO QHS PRN PRN Reason: INSOMNIA Medical Necessity - Tobacco Use Smoking Status: Current every day smoker Tobacco Use: Cigarettes Assessment/Plan All Active Problems Open fracture dislocation of ankle joint (Acute) Alcohol withdrawal (Acute) Alcoholism (Acute) Angioedema of lips (Acute) 1. S/P intramedullary nail right tibia with open reduction internal fixation right posterior malleolus ankle fracture. Irrigation debridement right open tibia fracture. Right second metatarsal fracture and third metatarsal fracture and fourth metatarsal fracture POD #1 2. Continue Pain Medications: Meloxicam and oxycodone 3. DVT Prophylaxis: Aspirin 81 mg twice daily 4. PT/OT: Nonweightbearing 6 weeks postoperatively with protected weightbearing as directed by the foot and tibia radiographs. Patient will be fitted for a pneumatic foam walking boot at his 2-week follow-up. Will begin gentle range of motion of the ankle at 2 weeks. 5. H & H: 8.9/26.1, asymptomatic 6. Encouraged Incentive Spirometry 7. Continue postoperative medical management per medicine 8. Disposition: Plan will be for discharge home today with home health. Patient will be given wheeled walker. Plan will be for patient to follow-up in 12 days with [facility] for x-rays and suture removal. Patient will be using meloxicam and oxycodone for pain control. This was discussed with Dr. Alfredito Felipe. Also lengthy discussion with the patient with regards to narcotics and alcohol use. Patient reports telling me he has stopped consuming alcohol. I explained the potential side effects and concern with long-term narcotic use. Patient due to his underlying liver results will avoid Tylenol. Patient will be using aspirin 81 mg twice daily for DVT prophylaxis since he will be nonweightbearing on the right lower extremity. He will be given Protonix at home to protect the stomach. Patient will contact her office if he has any complications or concerns upon discharge. Prescriptions will be E scribed to [facility] pharmacy. I have reviewed the [place] Automated Rx Reporting System (OARRS) report for this patient for refill pattern and other prescriber involvement as part of the appropriate surveillance for the provision of acute and chronic controlled medications. The report was requested and reviewed on the date of this entry and was considered in the prescribing process.
[2019-06-15] MEDS: Morphine 2 MG/ML Syringe IV (11:09)
--- NOTE | 2019-06-15 11:15 | DCINST_ITS ---
Discharge Diet: No Restrictions Discharge Activity: May Not Drive May shower in (days): 1 - Must cover dressing and splint on right lower extremity. Do not get wet. Ice area for (Minutes): 20 - Every 1-2 hours while awake Weight Bearing Status: No weight bearing - Right lower extremity with use of walker Keep extremity elevated above heart level: Operative Extremity Call your doctor if your incision/area has: Continuous Slow Oozing, Sudden Increased Bleeding, Increased Pain/ Swelling, Increased Redness, Foul Smelling Discharge Call your doctor if you observe: Fever of 101 or Higher, Coldness, Increased Pain, Numbness or Tingling, Change in Color Additional Instructions: Do not remove splint or dressing until 2-week follow-up at [facility] sports medicine [place]. Do not use narcotic/oxycodone with alcohol. Do not take any other nonsteroidal anti-inflammatories such as Advil, Aleve, Motrin with the meloxicam that was prescribed. Allergies/Adverse Reactions: Allergies lisinopril Allergy (Verified 06/13/19 13:10) Angioedema aspirin Adverse Reaction (Verified 06/13/19 13:10) HEARTBURN codeine Adverse Reaction (Verified 06/13/19 13:10) NIGHTMARES Medications to take at Discharge Losartan Potassium 50 mg PO DAILY 08/17/17 Amlodipine [Norvasc] 10 mg PO DAILY 06/13/19 Aspirin [Aspirin, Baby] 81 mg PO BIDCM #60 tab 06/15/19 Meloxicam [Mobic] 7.5 mg PO DAILY #30 tab 06/15/19 Oxycodone [Oxyir] 5 - 10 mg PO Q4H PRN PRN 4 Days #48 tab 06/15/19 Pantoprazole Sodium [Protonix] 40 mg PO DAILY #30 tab 06/15/19 The following prescriptions were given: Aspirin [Aspirin, Baby] 81 mg PO BIDCM #60 tab Prescription Printed Meloxicam [Mobic] 7.5 mg PO DAILY #30 tab Transmission Status: Sent to [facility] Oxycodone [Oxyir] 5 - 10 mg PO Q4H PRN PRN 4 Days #48 tab PRN Reason: Pain Score 4-10/10 Transmission Status: Sent to [facility] Pantoprazole Sodium [Protonix] 40 mg PO DAILY #30 tab Transmission Status: Sent to [facility] Primary Care Physician: Abdullahi Hope III, MD [Primary Care Provider] - Test Results: Test results from this visit will be discussed in further detail at your follow- up appointment, if applicable. Please Follow Up With: Bull Browlnee PA-C When: follow up 12 days with Xrays and incision check
--- NOTE | 2019-06-15 11:21 | PN_ITS ---
<Allison Loomis - Last Filed: 06/15/19 11:27> Patient Problems: Active and Suspected Problems Open fracture dislocation of ankle joint (Acute) Subjective: Patient seen and examined. Complains of severe right lower extremity pain following ambulation with physical therapy. Prior to ambulation his pain has been fairly controlled. Patient is hoping to be discharged today by orthopedic medicine. Discussed alcohol relapse with patient and he is not willing to discuss this at this time and does not [facility] - Physical Exam Vitals/I&O's: Vital Signs Temp Pulse Resp BP Pulse Ox 98.0 F 87 18 120/78 99 06/15/19 08:44 06/15/19 08:44 06/15/19 08:44 06/15/19 08:44 06/15/19 08:44 Oxygen Flow Rate (L/min) 2 Oxygen Delivery Method Room Air Weight: 179 lb 0.246 oz Body Mass Index (BMI) 25.0 Intake and Output for Last 24 Hours 06/13/19 06/14/19 06/15/19 23:59 23:59 23:59 Intake Total 110 / 110 4284.16 / 4484.16 1541.17 / 1541.17 Output Total 1900 / 1900 1550 / 2300 3100 / 3100 Balance -1790 / -1790 2734.16 / 2184.16 -1558.83 / -1558.83 General: Alert, Oriented x3, Cooperative HEENT: Atraumatic, PERRLA, EOMI, Normocephalic Neck: Supple, No JVD, Negative Carotid Bruits Lungs: Clear to auscultation, Normal air movement Cardiovascular: Regular rate, Regular Rhythm, Normal S1, Normal S2, No murmurs Abdomen: Bowel Sounds Present, Soft, Non Tender, Non-Distended Extremities: No clubbing, No cyanosis, No edema, Capillary Refill Less than 3 Seconds Skin: No rashes, No breakdown, - - Right leg postop dressing intact Musculoskeletal: No Tenderness to Palpation of Joints or Extremities Neurological: Cranial nerves II-XII grossly intact, Neuro grossly intact Psych/Mental Status: Normal Affect, Appropriate Laboratory Results 06/15/19 07:15: WBC 6.0, RBC 2.64 L, Hgb 8.9 L, Hct 26.1 L, MCV 98.9 H, MCH 33.7 H, MCHC 34.1, RDW Std Deviation 47.5 H, RDW Coeff of Wen 13.2, Plt Count 141 L, MPV 10.4 06/15/19 07:15: Sodium 129 L, Potassium 3.7, Chloride 96 L, Carbon Dioxide 28.0, Anion Gap 5, BUN 3 L, Creatinine 0.44 L, Estim Creat Clear Calc 204.41, Est GFR (MDRD) Af Amer 254, Est GFR (MDRD) Non-Af 210, BUN/Creatinine Ratio 6.7 L, Glucose 114 H, Calcium 7.6 L, Magnesium 1.7, Folate 25.00 06/15/19 07:15: Vitamin B12 852 Current Medications Acetaminophen (Tylenol) 650 mg PO Q4H PRN PRN PRN Reason: fever, pain 1-10 Last Admin: 06/15/19 00:15 Dose: 650 mg Documented by: Albuterol/Ipratropium (Duoneb) 3 ml INHALATION Q4HWA.RT PRN PRN Reason: SOB &/OR WHEEZING Last Admin: 06/14/19 19:40 Dose: 3 ml Documented by: Amlodipine Besylate (Norvasc) 10 mg PO DAILY [facility] Last Admin: 06/15/19 08:46 Dose: 10 mg Documented by: [facility] Last Admin: 06/15/19 08:46 Dose: 81 mg Documented by: Dicyclomine HCl (Bentyl) 20 mg PO Q6H PRN PRN PRN Reason: abdominal discomfort Famotidine (Pepcid) 20 mg PO BID [facility] Last Admin: 06/15/19 08:47 Dose: 20 mg Documented by: Folic Acid (Folic Acid) 1 mg PO DAILY@0800 [facility] Last Admin: 06/15/19 08:46 Dose: 1 mg Documented by: Gabapentin (Neurontin) 300 mg PO Q8H PRN PRN PRN Reason: moderate to severe anxiety Hydralazine HCl (Apresoline Iv) 10 mg IV Q4H PRN PRN PRN Reason: SBP > 160 Hydroxyzine Pamoate (Vistaril Pamoate Capsule) 50 mg PO Q4H PRN PRN PRN Reason: mild anxiety Loperamide HCl (Imodium) 2 mg PO Q4H PRN PRN PRN Reason: LOOSE STOOLS Losartan Potassium (Cozaar) 50 mg PO DAILY [facility] Last Admin: 06/15/19 08:47 Dose: 50 mg Documented by: Meloxicam (Mobic) 7.5 mg PO BID [facility] Morphine Sulfate () 2 - 4 mg IV Q4H PRN PRN PRN Reason: severe pain, 5-10 Last Admin: 06/15/19 05:50 Dose: 2 mg Documented by: Nicotine (Nicoderm Cq (Pbkc)) 21 mg TRANSDERM. DAILY [facility] Last Admin: 06/15/19 08:47 Dose: 21 mg Documented by: Ondansetron HCl (Zofran) 4 mg IV Q8H PRN PRN PRN Reason: Nausea Oxycodone HCl (Oxyir) 5 - 10 mg PO Q4H PRN PRN PRN Reason: Pain Score 4-10/10 Last Admin: 06/15/19 07:31 Dose: 10 mg Documented by: Pantoprazole Sodium (Protonix) 40 mg PO DAILY [facility] Phenobarbital (Phenobarbital) 64.8 mg PO Q4H [facility]; Taper Stop: 06/18/19 00:59 Last Admin: 06/15/19 11:10 Dose: 64.8 mg Documented by: Sodium Chloride () 10 - 40 ml IV UD PRN PRN Reason: SALINE FLUSH Thiamine HCl ([facility]itamin B1) [facility] Last Admin: 06/15/19 08:47 Dose: 100 mg Documented by: Trazodone HCl (Desyrel) 100 mg PO QHS PRN PRN Reason: INSOMNIA Medical Necessity - Tobacco Use Smoking Status: Current every day smoker Tobacco Use: Cigarettes Assessment/Plan All Active Problems Open fracture dislocation of ankle joint (Acute) Alcohol withdrawal (Acute) Alcoholism (Acute) Angioedema of lips (Acute) 1. Mechanical fall prior to admission S/P intramedullary nail right tibia, open reduction internal fixation right posterior malleolus ankle fracture by Dr. Felipe 06/14/19. Management per ortho. PT/OT. PRN pain regimen. Home with home health at discharge with walker Rx. 2. Acute alcohol withdrawal on chronic alcohol abuse-recent discharge 06/11/2019 following treatment for alcohol withdrawal and declined inpatient treatment at that time. Phenobarb taper, CIWA protocol during admission. Continue thiamine, folate, multivitamin. Patient not agreeable to talk with [facility]. Denies withdrawal symptoms. Encouraged outpatient follow-up. 3. Acute on chronic Hyponatremia-secondary to #2. Trend BMP. 4. Tobacco dependence-encourage cessation. 5. Abnormal LFTs-outpatient follow-up. 6. Hypertension-continue home amlodipine, losartan regimen. 7. GERD-continue Pepcid. 8. History of intracranial hemorrhage (cerebral hemorrhage): secondary to fall 04/14/[address] head notable for right posterior brainstem hyperdensity concerning for hemorrhage which was transferred to [facility]. 9. Acute on chronic chronic macrocytic anemia: Below baseline, expected outcome related to blood loss from #1. Stable. DVT prophylaxis- SCDs This patient was seen by STEW Carroll under the supervision of Dr. Jordan. <Russell Jordan - Last Filed: 06/15/19 13:32> Subjective: Seen and examined. Hemodynamically stable. Complain of right knee pain when he inadvertently moved his knee joint while sleep. Patient does not have alcohol withdrawal symptoms of tremor, anxiety attack, hallucinations, diarrhea or abdominal pain. Objective: General: Alert, Oriented x3, Cooperative HEENT: Atraumatic, PERRLA, EOMI, Normocephalic Neck: Supple, No JVD, Negative Carotid Bruits Lungs: Air entry is diminished in bilateral lungs., Bilateral fine expiratory wheezing present. Cardiovascular: Regular rate, Normal S1, Normal S2, No murmurs Abdomen: Bowel Sounds Present, Soft, Non Tender, Non-Distended Extremities: No edema, Capillary Refill Less than 3 Seconds. No tremors. Skin: -Right leg postop dressing intact Status post surgery. Musculoskeletal: No Tenderness to Palpation of Joints or Extremities Neurological: Cranial nerves II-XII grossly intact Psych/Mental Status: Normal Affect, Appropriate - Physical Exam Vitals/I&O's: Vital Signs Temp Pulse Resp BP Pulse Ox 98.0 F 87 18 120/78 99 06/15/19 08:44 06/15/19 08:44 06/15/19 08:44 06/15/19 08:44 06/15/19 08:44 Oxygen Flow Rate (L/min) 2 Oxygen Delivery Method Room Air Weight: 179 lb 0.246 oz Body Mass Index (BMI) 25.0 Intake and Output for Last 24 Hours 0406/14/19 06/15/19 23:59 23:59 23:59 Intake Total 110 / 110 4284.16 / 4484.16 2141.17 / 2141.17 Output Total 1900 / 1900 1550 / 2300 3600 / 3600 Balance -1790 / -1790 2734.16 / 2184.16 -1458.83 / -1458.83 Laboratory Results 06/15/19 07:15: WBC 6.0, RBC 2.64 L, Hgb 8.9 L, Hct 26.1 L, MCV 98.9 H, MCH 33.7 H, MCHC 34.1, RDW Std Deviation 47.5 H, RDW Coeff of Wen 13.2, Plt Count 141 L, MPV 10.4 06/15/19 07:15: Sodium 129 L, Potassium 3.7, Chloride 96 L, Carbon Dioxide 28.0, Anion Gap 5, BUN 3 L, Creatinine 0.44 L, Estim Creat Clear Calc 204.41, Est GFR (MDRD) Af Amer 254, Est GFR (MDRD) Non-Af 210, BUN/Creatinine Ratio 6.7 L, Glucose 114 H, Calcium 7.6 L, Magnesium 1.7, Folate 25.00 06/15/19 07:15: Vitamin B12 852 Current Medications Acetaminophen (Tylenol) 650 mg PO Q4H PRN PRN PRN Reason: fever, pain 1-10 Last Admin: 06/15/19 00:15 Dose: 650 mg Documented by: Albuterol/Ipratropium (Duoneb) 3 ml INHALATION Q4HWA.RT PRN PRN Reason: SOB &/OR WHEEZING Last Admin: 06/14/19 19:40 Dose: 3 ml Documented by: Amlodipine Besylate (Norvasc) 10 mg PO DAILY [facility] Last Admin: 06/15/19 08:46 Dose: 10 mg Documented by: Asp[facility], [facility]) [facility] Last Admin: 06/15/19 08:46 Dose: 81 mg Documented by: Dicyclomine HCl (Bentyl) 20 mg PO Q6H PRN PRN PRN Reason: abdominal discomfort Famotidine (Pepcid) 20 mg PO BID [facility] Last Admin: 06/15/19 08:47 Dose: 20 mg Documented by: Folic Acid (Folic Acid) 1 mg PO DAILY@0800 [facility] Last Admin: 06/15/19 08:46 Dose: 1 mg Documented by: Gabapentin (Neurontin) 300 mg PO Q8H PRN PRN PRN Reason: moderate to severe anxiety Hydralazine HCl (Apresoline Iv) 10 mg IV Q4H PRN PRN PRN Reason: SBP > 160 Hydroxyzine Pamoate (Vistaril Pamoate Capsule) 50 mg PO Q4H PRN PRN PRN Reason: mild anxiety Loperamide HCl (Imodium) 2 mg PO Q4H PRN PRN PRN Reason: LOOSE STOOLS Losartan Potassium (Cozaar) 50 mg PO DAILY [facility] Last Admin: 06/15/19 08:47 Dose: 50 mg Documented by: Meloxicam (Mobic) 7.5 mg PO BID [facility] Morphine Sulfate () 2 - 4 mg IV Q4H PRN PRN PRN Reason: severe pain, 5-10 Last Admin: 06/15/19 05:50 Dose: 2 mg Documented by: Nicotine (Nicoderm Cq (Pbkc)) 21 mg TRANSDERM. DAILY [facility] Last Admin: 06/15/19 08:47 Dose: 21 mg Documented by: Ondansetron HCl (Zofran) 4 mg IV Q8H PRN PRN PRN Reason: Nausea Oxycodone HCl (Oxyir) 5 - 10 mg PO Q4H PRN PRN PRN Reason: Pain Score 4-10/10 Last Admin: 06/15/19 07:31 Dose: 10 mg Documented by: Pantoprazole Sodium (Protonix) 40 mg PO DAILY [facility] Sodium Chloride () 10 - 40 ml IV UD PRN PRN Reason: SALINE FLUSH Thiamine HCl ([facility]itamin B1) [facility] Last Admin: 06/15/19 08:47 Dose: 100 mg Documented by: Trazodone HCl (Desyrel) 100 mg PO QHS PRN PRN Reason: INSOMNIA Assessment/Plan This patient was seen in conjunction with COMPLAINT ANALYSTAllison. I have independently interviewed and examined the patient and reviewed pertinent history, examination findings, laboratory and plan of management. I have reviewed the note and agree with the documented findings with the few additional points. In brief, patient is 53-year-old patient gentleman is admitted for right distal tibial, fibular shaft and ankle fracture. He was carrying a big spring box and tripped on the floor causing ankle twist and fracture. He had right open spiral distal tibia/fibula shaft fracture, right ankle posterior malleolus fracture, right proximal fibular fracture, right second third and fourth metatarsal fracture. Patient had ORIF and intramedullary nailing done. On pain medication, incentive spirometry, PT and OT and DVT prophylaxis. Patient probably has COPD with chronic wheezing and about 30 pack years of smoking. Never had PFT. Chest x-ray reported as no acute cardiopulmonary disease. Patient is also on phenobarbital regimen for alcohol withdrawal syndrome treatment. On thiamine, folic and methadone. Patient is patient has chronic hyponatremia and his sodium did not improve on IV fluid. Probably beer protomania and alcoholic hepatitis. ALT 64, AST 71. Total bili normal. The patient has history of GERD/gastritis possible alcoholic gastritis. PPI with NSAIDs recommended. Discussed with OMER Brownlee Other comorbidities as mentioned above including hypertension, GERD and history of intracranial hemorrhage and chronic macrocytic anemia. Serum folate 25 and B12 at 852 I have discussed my assessment with Allison GAINES and orders have been reviewed.. Inpatient E&M: 61933 Subs Hosp L2
== END 2019-06-15 13:15 | disposition home health service (06) | DRG 313 ==
LOC: ED 13:53 → PCU 19:41
PROVIDERS: Anesthesiology; Family Medicine; Nurse Practitioner Family; Admitting Provider Specialist; Emergency Provider Emergency Medicine; PCP Family Medicine; Visit Provider Internal Medicine
PROC: 0QSG06Z Reposition Right Tibia with Intramedullary Internal Fixation Device, Open Approach (ICD-10-PCS; CPT 27245; principal; 2019-06-14 07:00)
DX: S82.241A Displaced spiral fracture of shaft of right tibia, initial encounter for closed fracture (principal); S82.891A Other fracture of right lower leg, initial encounter for closed fracture; S92.324A Nondisplaced fracture of second metatarsal bone, right foot, initial encounter for closed fracture; S92.334A Nondisplaced fracture of third metatarsal bone, right foot, initial encounter for closed fracture; S92.344A Nondisplaced fracture of fourth metatarsal bone, right foot, initial encounter for closed fracture; S93.04XA Dislocation of right ankle joint, initial encounter; W18.30XA Fall on same level, unspecified, initial encounter; F10.239 Alcohol dependence with withdrawal, unspecified; E87.1 Hypo-osmolality and hyponatremia; I10 Essential (primary) hypertension; K21.9 Gastro-esophageal reflux disease without esophagitis; D53.9 Nutritional anemia, unspecified; J44.9 Chronic obstructive pulmonary disease, unspecified; F17.210 Nicotine dependence, cigarettes, uncomplicated; Z82.49 Family history of ischemic heart disease and other diseases of the circulatory system; Z83.3 Family history of diabetes mellitus; Z86.73 Personal history of transient ischemic attack (TIA), and cerebral infarction without residual deficits; Z88.8 Allergy status to other drugs, medicaments and biological substances; Y93.E6 Activity, residential relocation; Y92.009 Unspecified place in unspecified non-institutional (private) residence as the place of occurrence of the external cause; Y99.9 Unspecified external cause status; Z91.81 History of falling; F12.90 Cannabis use, unspecified, uncomplicated; Y90.9 Presence of alcohol in blood, level not specified
CPT/HCPCS: 36415; 71045; 73590; 73610; 73630; 73700; 76000; 80048; 80053; 80307; 80320; 82607; 82746; 83735; 84100; 85025; 85027; 85610; 85730; 90471; 90715; 93005; 94640; 96365; 96366; 96368; 96375; 97162; 99251; 99285; 99406; C1713; J7030; J7120; A4216; G0463; G0480; J2405

== ENCOUNTER 2019-06-28 17:20 | Inpatient (IN) | payer MEDICAID, SELFPAY ==
[2019-06-13 15:10] VITALS: BMI 25.0
[2019-06-28 17:21] VITALS: BP 142/89; PULSE 91; RESP 18; TEMP 36.8; O2SAT 99; BMI 23.1
--- NOTE | 2019-06-28 17:35 | ED.VIS.GEN ---
History of Present Illness Chief Complaint: Substance Abuse Informant: Patient Onset: Days Context: Gradual Onset Timing: Continuous Current Severity: Moderate Maximum Severity: Moderate Narrative: The patient is a 53-year-old male with medical history significant for alcohol abuse and dependence who presents to the emergency department by squad requesting alcohol detox. The patient has been through detox 2 other times, most recently 3 weeks ago. At that point, he underwent CIWA protocol and was referred to [facility] as an outpatient. He states he never followed up. He states that he started drinking again. He did have an ankle fracture after drinking over Easter and had to be admitted and had operative fixation. He states he is continued to drink. He did call [facility] today who referred him to the emergency department. He states that he really wants to try to get sober. Prior similar symptoms: Yes Recent Illness/Hospitalization: Yes Past Medical History - Allergies and Home Meds Allergies/Adverse Reactions: Allergies lisinopril Allergy (Verified 06/13/19 13:10) Angioedema aspirin Adverse Reaction (Verified 06/13/19 13:10) HEARTBURN codeine Adverse Reaction (Verified 06/13/19 13:10) NIGHTMARES Primary Care Physician: Abdullahi Hope III, MD [Primary Care Provider] - Prior records reviewed: Yes Past Medical History: - - Alcohol abuse Surgical History: - - L testicle removal s/p torsion at 18 y/o, T+A. Smoking Status: Current every day smoker - Family History Maternal Family History: Reports: - - Patient notes a maternal family history of hypertension, heart disease. Paternal Family History: Reports: - - Patient notes a paternal family history of hypertension, heart disease and diabetes. Review of Systems General: Denies: Chills, Fever, Sweats Eyes: Denies: Visual changes - bilaterally, Diplopia ENT: Denies: Rhinorrhea, Sore throat Cardiovascular: Denies: Chest pain, Palpitations Respiratory: Denies: Dyspnea, Cough, Dyspnea on exertion Gastrointestinal: Denies: Abdominal pain, Nausea, Vomiting, Diarrhea, Melena, Hematochezia Genitourinary: Denies: Dysuria, Hematuria, Frequency Musculoskeletal: Denies: Back pain, Extremity Pain Skin: Denies: Rash, Wounds Neurological: Denies: Headache, Weakness, Numbness Physical Exam Vital Signs/Narrative: Vital Signs Temp Pulse Resp BP Pulse Ox 06/28/19 17:21 98.3 F 91 18 142/89 H 99 Inital Vital Signs reviewed: Yes General: Well nourished, Well developed, No Acute Distress Head: Normocephalic, Atraumatic Eyes: Perrl, EOMI ENT: Moist mucous membranes, No rhinorrhea Neck: Supple, Nontender Cardiovascular: Regular rate, Regular rhythm, No murmurs Respiratory: No distress, CTA bilaterally, Chest nontender Abdomen: Soft, Nontender, Nondistended, Normal bowel sounds Back: Nontender, Normal Inspection Extremities: Nontender, No edema Skin: Normal color, No rash Neurological: Alert, Oriented x3, Cranial nerves II-XII grossly intact, Normal Strength, Normal Sensation Psychological: Normal affect, Normal Mood Diagnostic/Tx/Re-eval Abnormal Lab Results 06/28/19 06/28/19 06/28/19 17:45 17:45 17:45 WBC 7.4 RBC 3.50 L Hgb 11.6 L Hct 34.0 L MCV 97.1 H MCH 33.1 H MCHC 34.1 RDW Std Deviation 46.5 H RDW Coeff of Wen 13.0 Plt Count 327 MPV 9.0 Immature Gran % (Auto) 0.500 Neut % (Auto) 70.0 Lymph % (Auto) 19.5 [place] % (Auto) 7.2 Eos % (Auto) 2.4 Baso % (Auto) 0.4 Absolute Neuts (auto) 5.2 Absolute Lymphs (auto) 1.44 Nucleated RBC % 0 Sodium 122 L Potassium 4.0 Chloride 91 L Carbon Dioxide 25.0 Anion Gap 6 BUN 2 L Creatinine 0.48 L Estim Creat Clear Calc 187.13 Est GFR (MDRD) Af Amer 236 Est GFR (MDRD) Non-Af 195 BUN/Creatinine Ratio 4.2 L Glucose 100 Calcium 8.2 L Total Bilirubin 0.30 AST 94 H ALT 56 Alkaline Phosphatase 178 H Total Protein 7.4 Albumin 3.2 Globulin 4.2 Albumin/Globulin Ratio 0.8 L Ethyl Alcohol 330.0 H* - Medical Decision Making The patient presents with alcohol abuse and dependence and is requesting detox. Abdomen was soft and nontender. Metabolic work-up was pursued. The patient is intoxicated. However, he has new rather significant hyponatremia. I do feel that this is likely secondary to beer [place] elan, but this is lower than the patient has been on his last lab work-ups. With his persistent alcohol abuse and dependence, along with his new hyponatremia, I do feel that he would benefit from admission for detox, fluid restriction, and monitoring of electrolytes. Patient was discussed with the hospitalist. Impression 1. Alcohol abuse and dependence 2. Hyponatremia ED Disposition - Plan for ED Patient: Referrals: Abdullahi Hope III, MD [Primary Care Provider] -
[2019-06-28 18:00] LABS: Absolute Lymphocyte Count 1.44 X10^3/uL (0.83-4.51); Absolute Neutrophil Count 5.2 X10^3/uL (2.0-7.7); Basophil# 0.03 X10^3/uL; Basophil% 0.4 % (0-1); Eosinophil# 0.18 X10^3/uL; Eosinophils% 2.4 % (0-5); Hemoglobin 11.6 g/dL (13.0-16.5); Lymphocyte # 1.44 X10^3/ul (4.0); Lymphocyte % 19.5 % (19-41); Mean Corp Hgb Conc 34.1 g/dL (32-36); Mean Corpuscular Hgb 33.1 pg (27.0-32.0); Mean Corpuscular Volume 97.1 fL (80-94); Monocyte# 0.53 X10^3/uL; Monocyte% 7.2 % (0-10); NRBC Flagged by Analyzer 0 % (0-5); Neutrophil # 5.17 X10^3/uL (2.7-7.7); Platelet Count 327 K/mm3 (150-450); RBC Distribution Width SD 46.5 fl (35.1-43.9); White Blood Count 7.4 K/mm3 (4.4-11.0)
[2019-06-28] MEDS: 0.9% Normal Saline 1,000 ML 1000 ML IV (18:02)
[2019-06-28 18:18] LABS: ALB/GLOB Ratio 0.8 RATIO (0.9-2.4); AST(SGOT) 94 U/L (15-37); Alanine Aminotransfer ALT/SGPT 56 U/L (16-61); Albumin, Serum 3.2 g/dL (3.2-5.0); Alkaline Phosphatase 178 U/L (45-117); Anion Gap 6 (5-15); BUN 2 mg/dL (7-18); BUN/Creat Ratio 4.2 RATIO (10-20); Calcium,Total 8.2 mg/dL (8.5-10.1); Chloride 91 mmol/L (98-107); Creatinine, Serum 0.48 mg/dL (0.70-1.30); EST Glomerular Filtration Rate 195 mL/min (>60); Est Glom Filt Rate - Afr Amer 236 mL/min (>60); Estimated Creatinine Clearance 187.13 ml/min; Globulin 4.2 g/dL (2.2-4.2); Glucose 100 mg/dL (74-106); Protein, Total 7.4 g/dL (6.4-8.2); Sodium Level 122 mmol/L (136-145)
--- NOTE | 2019-06-28 19:11 | CM.ED ---
SOCIAL WORK CALL TO DANIELA WITH [facility] TO UPDATE PATIENT TO BE ADMITTED. DANIELA TO BE IN TOMORROW TO COMPLETE ASSESSMENT. Maurice BRIAN, DRUM TESTER, WEB DESIGN INTERN.
[2019-06-28 19:16] VITALS: BP 121/91; PULSE 104; RESP 18; TEMP 36.9; O2SAT 97
[2019-06-28 19:51] VITALS: BMI 23.0
[2019-06-28 20:04] VITALS: BMI 23.0
[2019-06-28 20:04] LABS: Amphetamine Urine VISTA NEGATIVE (<1000 ng/mL); Barbiturate Urine VISTA POSITIVE (< 200 ng/mL); Benzodiazepine Urine VISTA NEGATIVE (< 200 ng/mL); Cocaine Urine VISTA NEGATIVE (< 300 ng/mL); Ecstacy Urine VISTA NEGATIVE (< 500 ng/mL); Methadone Urine VISTA NEGATIVE (< 300 ng/mL); PCP Urine VISTA NEGATIVE (< 25 ng/mL); THC Urine VISTA POSITIVE (< 50 ng/mL); Vista UDS pH Range 6
[2019-06-28 20:20] VITALS: BP 150/75; PULSE 92; RESP 16; TEMP 36.9; O2SAT 100
--- NOTE | 2019-06-28 21:05 | HP.PCM_ITS ---
Problem List (1) Open fracture dislocation of ankle joint Status: Chronic Qualifiers: Laterality: right (2) Chronic hyponatremia Status: Acute (3) Alcohol abuse Status: Acute (4) Alcohol withdrawal Status: Acute Qualifiers: Complication of substance-induced condition: with unspecified complication Qualified Code(s): F10.239 - Alcohol dependence with withdrawal, unspecified (5) Tobacco use Status: Chronic (6) GERD (gastroesophageal reflux disease) Status: Chronic Qualifiers: Esophagitis presence: esophagitis presence not specified Qualified Code(s): K21.9 - Gastro-esophageal reflux disease without esophagitis (7) Hypertension Status: Chronic Qualifiers: Hypertension type: essential hypertension Qualified Code(s): I10 - Essential (primary) hypertension History of Present Illness Date of Admission: 06/28/19 Chief Complaint: alchol withdrawal The patient is a 53 year old male patient with a chronic history of hypertension, chronic alcohol abuse, ankle fracture [facility]. The patient has gone through the alcohol withdrawal program previously and is failed to follow-up with 180. His last known alcohol intake was this morning with beer states he has had a few today, his current alcohol was above 300. The patient is also a smoker and would like a patch. He does have a chronic history of hyponatremia as well and his current sodium is 122. The patient is admitted to general medical floor he was placed on a CIWA protocol and given IV normal saline to correct his sodium deficiency. 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) Tobacco use (Chronic) GERD (gastroesophageal reflux disease) (Chronic) Hypertension (Chronic) Allergies lisinopril Allergy (Verified 06/28/19 20:17) Angioedema aspirin Adverse Reaction (Verified 06/28/19 20:17) HEARTBURN codeine Adverse Reaction (Verified 06/28/19 20:17) NIGHTMARES Home Medications: Ambulatory Orders Medication Instructions Recorded Losartan Potassium 50 mg PO DAILY 08/17/17 Amlodipine [Norvasc] 10 mg PO DAILY 06/13/19 Aspirin [Aspirin, Baby] 81 mg PO BIDCM 06/28/19 Meloxicam [Mobic] 7.5 mg PO DAILY 06/28/19 Pantoprazole Sodium [Protonix] 40 mg PO DAILY 06/28/19 Surgical History: - - L testicle removal s/p torsion at 18 y/o, T+A. Psychiatric History: No pertinent psych hx Smoking Status: Current every day smoker - *Family History Maternal History Items: - - Patient notes a maternal family history of hypertension, heart disease. Paternal History Items: - - Patient notes a paternal family history of hypertension, heart disease and diabetes. Review of Systems Constitutional: Denies: Chills, Fever, Weight Change HEENT: Denies: Head Aches, Sinus Congestion, Sinus Drainage Cardiovascular: Denies: Chest Pain, Palpitations Respiratory: Denies: Cough, Shortness of breath at rest, Sputum production Gastrointestinal: Denies: Abdominal Pain, Nausea, Vomiting Genitourinary: Denies: Dysuria Musculoskeletal: Reports: Joint Pain - right ankle, Joint Tenderness Skin: Denies: Rash, Wounds Neurological: Denies: Numbness, Tingling, Focal weakness Psychiatric: Reports: Anxiety. Denies: Depression, Homicidal Ideations, Suici idalia Ideations Hematologic/ Lymphatic: Denies: Easy Bruising, Easy Bleeding VTE Information - Inpt Only VTE Present on Admission: No VTE Pharm Prophylaxis ordered?: Yes - Physical Exam Vitals/I&O's: Vital Signs Temp Pulse Resp BP Pulse Ox 98.4 F 104 H 18 121/91 H 97 06/28/19 19:16 06/28/19 19:16 06/28/19 19:16 06/28/19 19:16 06/28/19 19:16 Oxygen Delivery Method Room Air Weight: 165 lb 2.02 oz Body Mass Index (BMI) 23.0 Intake and Output for Last 24 Hours 06/26/19 06/27/19 06/28/19 23:59 23:59 23:59 Intake Total 1000 / 1000 Balance 1000 / 1000 General: Alert, Oriented x3, Cooperative HEENT: Atraumatic, PERRLA, EOMI, Normocephalic Neck: Supple, No JVD Lungs: Clear to auscultation, Normal air movement, No rhonchi, No wheeze, No rales Cardiovascular: Regular rate, Regular Rhythm, Normal S1, Normal S2, No murmurs Abdomen: Bowel Sounds Present, Soft, Non Tender Extremities: Tenderness - right ankle in splint Skin: No rashes, No breakdown Musculoskeletal: Tenderness - rt ankle Neurological: Neuro grossly intact Psych/Mental Status: Agitated, Anxious Laboratory Results 06/28/19 17:45: WBC 7.4, RBC 3.50 L, Hgb 11.6 L, Hct 34.0 L, MCV 97.1 H, MCH 33.1 H, MCHC 34.1, RDW Std Deviation 46.5 H, RDW Coeff of Wen 13.0, Plt Count 327, MPV 9.0, Immature Gran % (Auto) 0.500, Neut % (Auto) 70.0, Lymph % (Auto) 19.5, [place] % (Auto) 7.2, Eos % (Auto) 2.4, Baso % (Auto) 0.4, Absolute Neuts (auto) 5.2, Absolute Lymphs (auto) 1.44, Nucleated RBC % 0 06/28/19 17:45: Sodium 122 L, Potassium 4.0, Chloride 91 L, Carbon Dioxide 25.0, Anion Gap 6, BUN 2 L, Creatinine 0.48 L, Estim Creat Clear Calc 187.13, Est GFR (MDRD) Af Amer 236, Est GFR (MDRD) Non-Af 195, BUN/Creatinine Ratio 4.2 L, Glucose 100, Calcium 8.2 L, Total Bilirubin 0.30, AST 94 H, ALT 56, Alkaline Phosphatase 178 H, Total Protein 7.4, Albumin 3.2, Globulin 4.2, Albumin/Globulin Ratio 0.8 L 06/28/19 17:45: Ethyl Alcohol 330.0 H* 06/28/19 19:00: Urine Opiates Screen NEGATIVE, Urine Methadone Screen NEGATIVE, Ur Barbiturates Screen POSITIVE H, Ur Phencyclidine Scrn NEGATIVE, Ur Amphetamines Screen NEGATIVE, U Methamphetamin-MDMA NEGATIVE, U Benzodiazepines Scrn NEGATIVE, Urine Cocaine Screen NEGATIVE, U Cannabinoids Screen POSITIVE H, Ur Drug Screen Comment Current Medications Sodium Chloride () 250 mls @ 15 mls/hr IV .[id number] PRN PRN Reason: Saline Flush Sodium Chloride () 250 mls @ 15 mls/hr IV .[id number] PRN PRN Reason: Additional IVPB Infusion Sodium Chloride () 10 - 40 ml IV UD PRN PRN Reason: SALINE FLUSH Assessment/Plan All Active Problems Chronic hyponatremia (Acute) Alcohol abuse (Acute) Alcohol withdrawal (Acute) Alcoholism (Acute) Angioedema of lips (Acute) Chronic Problems Open fracture dislocation of ankle joint (Chronic) Tobacco use (Chronic) GERD (gastroesophageal reflux disease) (Chronic) Hypertension (Chronic) Plan 1. hypernatremia?IV normal saline at 125 cc/h repeat BMP in the morning 2. Alcohol abuse disorder requesting detoxification.?Admit to general medical floor, place patient on CIWA protocol, consult case management for outpatient alcohol treatment 3. Tobacco use disorder?nicotine patch 4. Hypertension?continue current medications 5. DVT prophylaxis?low molecular weight heparin 6. GERD continue current medication 7. ankle fracture?follow-up with [facility] as an outpatient after discharge Inpatient E&M: 55177 Init Hosp L3
[2019-06-28] MEDS: LORazepam 1 MG Tablet PO (23:24)
[2019-06-28] MEDS: traZODone 100 MG Tablet PO (23:26)
[2019-06-28] MEDS: Gabapentin 300 MG Capsule PO (23:26)
[2019-06-29] VITALS (9 sets, daily range): BP systolic 129–152; BP diastolic 79–106; PULSE 102–126; RESP 16–18; TEMP 37.1–37.4; O2SAT 93–100
[2019-06-29] MEDS: 0.9% Normal Saline 1,000 ML 150 ML IV ×2 (00:14→06:54)
[2019-06-29] MEDS: LORazepam 1 MG Tablet PO ×6 (02:10→22:02)
[2019-06-29 06:11] LABS: Anion Gap 7 (5-15); BUN 2 mg/dL (7-18); BUN/Creat Ratio 5.4 RATIO (10-20); Chloride 103 mmol/L (98-107); Creatinine, Serum 0.37 mg/dL (0.70-1.30); EST Glomerular Filtration Rate 258 mL/min (>60); Est Glom Filt Rate - Afr Amer 312 mL/min (>60); Estimated Creatinine Clearance 241.79 ml/min; Glucose 83 mg/dL (74-106); Potassium 3.6 mmol/L (3.5-5.1); Sodium Level 133 mmol/L (136-145)
[2019-06-29] MEDS: Thiamine Hydrochloride 100 MG Tablet PO (08:05)
[2019-06-29] MEDS: Enoxaparin 40 MG/0.4 ML Syringe SC (08:05)
[2019-06-29] MEDS: amLODIPine 10 MG Tablet PO (08:05)
[2019-06-29] MEDS: Aspirin 81 MG TAB.CHEW PO ×2 (08:05→16:17)
[2019-06-29] MEDS: Losartan Potassium 50 MG Tablet PO (08:05)
[2019-06-29] MEDS: Folic Acid 1 MG Tablet PO (08:05)
[2019-06-29] MEDS: Pantoprazole Sodium 40 MG Tablet PO (08:06)
--- NOTE | 2019-06-29 09:36 | CASEMGMT ---
Addendum entered by Paz Hoffman 06/29/19 10:10: SW received call from Jacinda at [facility] stating she is back to making visits at [facility] and will be in to see pt today. Original Note: Social Work Note SW placed a call to Arleen at [facility] and left message regarding referral and asked that [facility] the [facility] evaluate pt today. Paz Hoffman MANAGER ADMINISTRATION, SECURITY AND COMPLIANCE PROJECT MANAGER
[2019-06-29 11:01] LABS: Bedside Glucose 112 mg/dL (70-110)
[2019-06-29] MEDS: Meloxicam 7.5 MG Tablet PO (11:11)
[2019-06-29 12:03] LABS: Anion Gap 7 (5-15); BUN 6 mg/dL (7-18); BUN/Creat Ratio 12.1 RATIO (10-20); Calcium,Total 8.1 mg/dL (8.5-10.1); Chloride 101 mmol/L (98-107); EST Glomerular Filtration Rate 186 mL/min (>60); Est Glom Filt Rate - Afr Amer 225 mL/min (>60); Estimated Creatinine Clearance 178.93 ml/min; Glucose 98 mg/dL (74-106); Potassium 3.6 mmol/L (3.5-5.1); Sodium Level 131 mmol/L (136-145)
--- NOTE | 2019-06-29 13:43 | ADDICTION ---
ASAM: LOC Recommended- 4.0 Medically Managed Intensive Inpatient Services Patient reports willing to engage in 2.1 Intensive Outpatient Services - [facility] with [facility] following discharge. Original Note: This entry writer met with patient in his room to process discharge planning to to update ASA assessment. Patient was alert and oriented and reported intention to engage with [facility] for Intensive Outpatient upon discharge from [facility]. He appears motivated to engage in individual sessions, IOP and MAT. He has committed to ongoing treatment and completed a discharge plan. This entry writer has communicated with [facility] to provide continuity of care. This entry writer will also refer patient to Medication Assisted Treatment through [facility] as well. This entry writer will inform hospital social psychologist of patients discharge plans and will provide social psychologist patient's paper d/c plan. ASAM: LOC Recommended- 4.0 Medically Managed Intensive Inpatient Services Dimension1: Acute Intoxication and/or Withdrawal Potential Patient reports that his last date of use (alcohol) was 06/28/2019. He states that he was experiencing withdrawal symptoms, including shakiness, agitation, nausea, body aches, high blood pressure and general discomfort and presented to [facility] ED to engage in detox. Patient is currently engaging in medical withdrawal management services and reports no current withdrawal symptoms. He reports daily alcohol use prior to engaging with [facility]. Dimension2: Biomedical Conditions/Complications Patient reports prior high blood pressure diagnosis and is medicated for this. He reports some non-compliance related to focusing on drinking instead of taking care of myself. He reports that he injured his right foot/leg and is experiencing pain due to this injury. He noted that his surgeon gave him pain meds which impacted his judgment. Dimension3: Emotional, Behavioral, Cognitive Conditions and Complications Emotional: Patient reports no depression, anxiety or mood disorder symptoms. He reports no further agitation. He reports no SI/HI. No psychosis noted. Behavioral: None noted Cognitive: Patient alert and oriented x4; presents with adequate intelligence. Dimension4: Readiness to Change Patient presents in the Preparation stage of change as evidenced by his identification of problem behaviors with willingness and motivation to engage in Intensive Outpatient groups/ individual counseling/MAT to address problem behaviors and thinking errors and to promote positive behavioral modification. Dimension5: Relapse, Continued Use, or Continued Problem Potential Patient is at a high risk of relapse based on length of use, amount of use and motivating factors for use including boredom from not working. Patient does not appear to have appropriate recovery skills. Patient did not state awareness of triggers outside of not working. This entry writer will refer for MAT. Dimension6: Recovery/ Living Environment Patient reports that he lives independently, with his partner, in [place], [place]. Partner actively uses alcohol. He reports prior use of alcohol in his home. He reports that his primary support people actively use alcohol. He reports resistance to mutual aid meetings and does not currently have a sponsor. He reported limited sober support people. Initialized on 06/10/19 11:35 - END OF NOTE
--- NOTE | 2019-06-29 14:56 | PCM.PN.HOSP ---
Reason for Visit: Follow-up on acute alcohol withdrawal Subjective: Patient was seen and examined. His pain is fairly controlled. Patient states that he was supposed to have followed up with [facility] on 06/03/19. He is seeking medical stabilization for detox. Vitals/I&O's: Vital Signs Temp Pulse Resp BP Pulse Ox 98.8 F 120 H 18 129/79 H 97 06/29/19 12:31 06/29/19 12:31 06/29/19 12:31 06/29/19 12:31 06/29/19 12:31 Oxygen Delivery Method Room Air Weight: 74.9 kg Body Mass Index (BMI) 23.0 Intake and Output for Last 24 Hours 06/27/19 06/28/19 06/29/19 23:59 23:59 23:59 Intake Total 1000 / 1640 3580 / 3580 Output Total 1450 / 1450 Balance 1000 / 990 2130 / 2130 General: Alert, Oriented x3, Cooperative, No apparent distress HEENT: Atraumatic, PERRLA, EOMI, Normocephalic Oral: Moist Mucosa Neck: Supple Lungs: Clear to auscultation, Normal air movement Cardiovascular: Regular rate, Regular Rhythm, Normal S1, Normal S2, No murmurs Abdomen: Bowel Sounds Present, Soft, Non Tender, Non-Distended, No Hepato-splenomegaly Extremities: No edema Skin: No rashes Musculoskeletal: No Tenderness to Palpation of Joints or Extremities Lymphatic: No Cervical, Supraclavicular, or Inguinal Adenopathy Neurological: Cranial nerves II-XII grossly intact, Neuro grossly intact Psych/Mental Status: Normal Affect, Appropriate Laboratory Results 06/28/19 17:45: WBC 7.4, RBC 3.50 L, Hgb 11.6 L, Hct 34.0 L, MCV 97.1 H, MCH 33.1 H, MCHC 34.1, RDW Std Deviation 46.5 H, RDW Coeff of Wen 13.0, Plt Count 327, MPV 9.0, Immature Gran % (Auto) 0.500, Neut % (Auto) 70.0, Lymph % (Auto) 19.5, [place] % (Auto) 7.2, Eos % (Auto) 2.4, Baso % (Auto) 0.4, Absolute Neuts (auto) 5.2, Absolute Lymphs (auto) 1.44, Nucleated RBC % 0 06/28/19 17:45: Sodium 122 L, Potassium 4.0, Chloride 91 L, Carbon Dioxide 25.0, Anion Gap 6, BUN 2 L, Creatinine 0.48 L, Estim Creat Clear Calc 187.13, Est GFR (MDRD) Af Amer 236, Est GFR (MDRD) Non-Af 195, BUN/Creatinine Ratio 4.2 L, Glucose 100, Calcium 8.2 L, Total Bilirubin 0.30, AST 94 H, ALT 56, Alkaline Phosphatase 178 H, Total Protein 7.4, Albumin 3.2, Globulin 4.2, Albumin/Globulin Ratio 0.8 L 06/28/19 17:45: Ethyl Alcohol 330.0 H* 06/28/19 19:00: Urine Opiates Screen NEGATIVE, Urine Methadone Screen NEGATIVE, Ur Barbiturates Screen POSITIVE H, Ur Phencyclidine Scrn NEGATIVE, Ur Amphetamines Screen NEGATIVE, U Methamphetamin-MDMA NEGATIVE, U Benzodiazepines Scrn NEGATIVE, Urine Cocaine Screen NEGATIVE, U Cannabinoids Screen POSITIVE H, Ur Drug Screen Comment 06/29/19 05:27: Sodium 133 L, Potassium 3.6, Chloride 103, Carbon Dioxide 23.0, Anion Gap 7, BUN 2 L, Creatinine 0.37 L, Estim Creat Clear Calc 241.79, Est GFR (MDRD) Af Amer 312, Est GFR (MDRD) Non-Af 258, BUN/Creatinine Ratio 5.4 L, Glucose 83, Calcium 8.0 L 06/29/19 10:54: POC Glucose 112 H 06/29/19 11:40: Sodium 131 L, Potassium 3.6, Chloride 101, Carbon Dioxide 23.0, Anion Gap 7, BUN 6 L, Creatinine 0.50 L, Estim Creat Clear Calc 178.93, Est GFR (MDRD) Af Amer 225, Est GFR (MDRD) Non-Af 186, BUN/Creatinine Ratio 12.1, Glucose 98, Calcium 8.1 L Current Medications Amlodipine Besylate (Norvasc) 10 mg PO DAILY [facility] Last Admin: 06/29/19 08:05 Dose: 10 mg Documented by: Aspirin (Aspirin, Baby) 81 mg PO BIDCM [facility] Last Admin: 06/29/19 08:05 Dose: 81 mg Documented by: Dextrose (D50w Syringe) 0 gm IV X1 PRN; Protocol PRN Reason: Hypoglycemia Dicyclomine HCl (Bentyl) 20 mg PO Q6H PRN PRN PRN Reason: abdominal discomfort Enoxaparin Sodium (Lovenox) 40 mg SC DAILY [facility] Last Admin: 06/29/19 08:05 Dose: 40 mg Documented by: Folic Acid (Folic Acid) 1 mg PO DAILY@0800 [facility] Last Admin: 06/29/19 08:05 Dose: 1 mg Documented by: Gabapentin (Neurontin) 300 mg PO Q8H PRN PRN PRN Reason: moderate to severe anxiety Last Admin: 06/28/19 23:26 Dose: 300 mg Documented by: Glucagon () 1 mg IM .X1 PRN PRN Reason: Hypoglycemia Hydroxyzine Pamoate (Vistaril Pamoate Capsule) 50 mg PO Q4H PRN PRN PRN Reason: mild anxiety Sodium Chloride () 250 mls @ 15 mls/hr IV .[id number] PRN PRN Reason: Saline Flush Sodium Chloride () 250 mls @ 15 mls/hr IV .[id number] PRN PRN Reason: Additional IVPB Infusion Loperamide HCl (Imodium) 2 mg PO Q4H PRN PRN PRN Reason: LOOSE STOOLS Lorazepam (Ativan) 2 mg PO Q4H [facility]; Taper Stop: 07/03/19 06:19 Last Admin: 06/29/19 11:11 Dose: 2 mg Documented by: Lorazepam (Ativan) 2 mg PO Q2H PRN PRN; Protocol PRN Reason: CIWA score > 8 but <15 Lorazepam (Ativan) 2 mg PO UD PRN; Protocol PRN Reason: CIWA score >/=15. Lorazepam (Ativan) 2 mg IV Q2H PRN PRN; Protocol PRN Reason: CIWA score > 8 but <15 Lorazepam (Ativan) 2 mg IV UD PRN; Protocol PRN Reason: CIWA score >/=15. Losartan Potassium (Cozaar) 50 mg PO DAILY [facility] Last Admin: 06/29/19 08:05 Dose: 50 mg Documented by: Meloxicam (Mobic) 7.5 mg PO DAILY@1200 [facility] Last Admin: 06/29/19 11:11 Dose: 7.5 mg Documented by: Nicotine (Nicoderm Cq (Pbkc)) 21 mg TRANSDERM. DAILY [facility] Last Admin: 06/29/19 10:56 Dose: 21 mg Documented by: Nicotine Polacrilex (Rugby Nicotine (Pbkc)) 4 mg PO Q2H PRN PRN PRN Reason: Nicotine Craving Ondansetron HCl (Zofran Odt) 8 mg PO Q8H PRN PRN PRN Reason: NAUSEA Pantoprazole Sodium (Protonix) 40 mg PO DAILY [facility] Last Admin: 06/29/19 08:06 Dose: 40 mg Documented by: Sodium Chloride () 10 - 40 ml IV UD PRN PRN Reason: SALINE FLUSH Thiamine HCl (Vitamin B1) 100 mg PO DAILYCM [facility] Last Admin: 06/29/19 08:05 Dose: 100 mg Documented by: Trazodone HCl (Desyrel) 100 mg PO QHS PRN PRN PRN Reason: INSOMNIA Last Admin: 06/28/19 23:26 Dose: 100 mg Documented by: STROKE Vital Signs/Narrative: Vital Signs Temp Pulse Resp BP Pulse Ox 06/29/19 12:31 98.8 F 120 H 18 129/79 H 97 Medical Necessity - Tobacco Use Smoking Status: Current every day smoker Assessment/Plan All Active Problems Chronic hyponatremia (Acute) Alcohol abuse (Acute) Alcohol withdrawal (Acute) Alcoholism (Acute) Angioedema of lips (Acute) 1. Hyponatremia likely secondary to beer potomania Patient's admitting sodium was 122, sodium today is 131 We will check urine osmolarity, serum osmolarity, urine sodium, TSH Will also put on fluid restriction Repeat blood work in am 2. Acute alcohol withdrawal, CIWA 2, stable vitals On thiamine 3. Right distal tibia/fibula fracture, s/p repair on 06/14/19 Will consult orthopedics 4. Nicotine disorder, on replacements 5. Hypertension, stable On amlodipine, Losartan 6. DVT PPx- Lovenox SC Inpatient E&M: 85194 Subs Hosp L2
[2019-06-29 16:25] LABS: Bedside Glucose 104 mg/dL (70-110)
--- NOTE | 2019-06-29 16:30 | RAD_ITS ---
STUDY: X-RAY - RIGHT TIBIA AND FIBULA REASON FOR EXAM: Male, 53 years old. Follow-up fracture following repair. TECHNIQUE: 4 view(s) of the tibia and fibula were obtained. COMPARISON: Right tibia fibula, June 14, 2019. FINDINGS: Again seen is intramedullary svitlana within the tibial shaft with transfixing screws. There is no obvious change in alignment of the distal fracture fragments when compared to the previous study. Again seen is a fracture of proximal fibular shaft. There appears to be slightly greater lateral angulation when compared to previous study. There is also likely increased displacement of the distal fibular fracture is slightly more cephalad positioning of the distal fragment. The soft tissues appear unchanged. RAD/Tibia & Fibula 2 Views IMPRESSION: 1. Internal fixation of a distal fibular fracture without change in alignment. There is no evidence of callus formation. 2. Slight shifting of the proximal and distal fibular fractures when compared to the prior study. Electronically Signed: Hugo Candelario DO at 16:49 EDT Tel [phone], Service support ,
[2019-06-29 16:32] LABS: Osmolality, Serum 270 mOsm/KG (275-295)
[2019-06-29 16:40] LABS: Thyroid Stim Hormone (TSH) 1.67 uIU/mL (0.358-3.74)
[2019-06-29 17:24] LABS: Urine Sodium 80 mmol/L (Not Establ.)
[2019-06-29 17:53] LABS: Osmolality, Urine 230 mOsm/KG
[2019-06-29] MEDS: traZODone 100 MG Tablet PO (22:02)
[2019-06-30] VITALS (8 sets, daily range): BP systolic 138–149; BP diastolic 93–104; PULSE 95–118; RESP 16–20; TEMP 36.7–37.5; O2SAT 96–98
[2019-06-30] MEDS: LORazepam 1 MG Tablet PO ×6 (02:23→21:58)
[2019-06-30 06:16] LABS: ALB/GLOB Ratio 0.8 RATIO (0.9-2.4); AST(SGOT) 61 U/L (15-37); Alanine Aminotransfer ALT/SGPT 45 U/L (16-61); Albumin, Serum 2.7 g/dL (3.2-5.0); Alkaline Phosphatase 146 U/L (45-117); Anion Gap 5 (5-15); BUN 5 mg/dL (7-18); BUN/Creat Ratio 9.8 RATIO (10-20); Calcium,Total 8.6 mg/dL (8.5-10.1); Chloride 101 mmol/L (98-107); Creatinine, Serum 0.51 mg/dL (0.70-1.30); EST Glomerular Filtration Rate 179 mL/min (>60); Est Glom Filt Rate - Afr Amer 217 mL/min (>60); Estimated Creatinine Clearance 175.42 ml/min; Globulin 3.6 g/dL (2.2-4.2); Glucose 96 mg/dL (74-106); Potassium 3.3 mmol/L (3.5-5.1); Protein, Total 6.3 g/dL (6.4-8.2); Sodium Level 133 mmol/L (136-145)
[2019-06-30] MEDS: Folic Acid 1 MG Tablet PO (07:37)
[2019-06-30] MEDS: Thiamine Hydrochloride 100 MG Tablet PO (07:37)
[2019-06-30] MEDS: Aspirin 81 MG TAB.CHEW PO ×2 (07:37→16:05)
[2019-06-30] MEDS: Enoxaparin 40 MG/0.4 ML Syringe SC (07:37)
[2019-06-30] MEDS: Pantoprazole Sodium 40 MG Tablet PO (07:37)
[2019-06-30] MEDS: amLODIPine 10 MG Tablet PO (07:37)
[2019-06-30] MEDS: Losartan Potassium 50 MG Tablet PO ×2 (07:37→12:25)
[2019-06-30] MEDS: Meloxicam 7.5 MG Tablet PO (11:31)
--- NOTE | 2019-06-30 12:09 | PN_ITS ---
Reason for Visit: Follow-up on acute alcohol withdrawal Subjective: Patient was seen and examined. He denied any new complaints. His pain is controlled. He has been seen by orthopedic surgery. Objective: Physical exam: General: Alert, Oriented x3, Cooperative, No apparent distress HEENT: Atraumatic, PERRLA, EOMI, Normocephalic Oral: Moist Mucosa Neck: Supple Lungs: Clear to auscultation, Normal air movement Cardiovascular: Regular rate, Regular Rhythm, Normal S1, Normal S2, No murmurs Abdomen: Bowel Sounds Present, Soft, Non Tender, Non-Distended, No Hepato- splenomegaly Extremities: No edema Skin: No rashes Musculoskeletal: No Tenderness to Palpation of Joints or Extremities Lymphatic: No Cervical, Supraclavicular, or Inguinal Adenopathy Neurological: Cranial nerves II-XII grossly intact, Neuro grossly intact Psych/Mental Status: Normal Affect, Appropriate Vitals/I&O's: Vital Signs Temp Pulse Resp BP Pulse Ox 98.4 F 96 16 144/101 H 97 06/30/19 10:44 06/30/19 10:44 06/30/19 10:44 06/30/19 10:44 06/30/19 07:25 Oxygen Delivery Method Room Air Weight: 74.9 kg Body Mass Index (BMI) 23.0 Intake and Output for Last 24 Hours 06/28/19 06/29/19 06/30/19 23:59 23:59 23:59 Intake Total 1000 / 1640 3580 / 3980 800 / 800 Output Total 1450 / 2050 600 / 600 Balance 1000 / 990 2130 / 1930 200 / 200 Laboratory Results 06/29/19 11:40: TSH 1.67 06/29/19 15:40: Serum Osmolality 270 L 06/29/19 16:13: POC Glucose 104 06/29/19 16:50: Urine Osmolality 230 06/29/19 16:50: Ur Random Sodium 80 06/30/19 05:27: Sodium 133 L, Potassium 3.3 L, Chloride 101, Carbon Dioxide 27.0, Anion Gap 5, BUN 5 L, Creatinine 0.51 L, Estim Creat Clear Calc 175.42, Est GFR (MDRD) Af Amer 217, Est GFR (MDRD) Non-Af 179, BUN/Creatinine Ratio 9.8 L, Glucose 96, Calcium 8.6, Total Bilirubin 0.40, AST 61 H, ALT 45, Alkaline Phosphatase 146 H, Total Protein 6.3 L, Albumin 2.7 L, Globulin 3.6, Albumin/Globulin Ratio 0.8 L Current Medications Amlodipine Besylate (Norvasc) 10 mg PO DAILY [facility] Last Admin: 06/30/19 07:37 Dose: 10 mg Documented by: Aspirin (Aspirin, Baby) 81 mg PO BIDCM [facility] Last Admin: 06/30/19 07:37 Dose: 81 mg Documented by: Dextrose (D50w Syringe) 0 gm IV X1 PRN; Protocol PRN Reason: Hypoglycemia Dicyclomine HCl (Bentyl) 20 mg PO Q6H PRN PRN PRN Reason: abdominal discomfort Enoxaparin Sodium (Lovenox) 40 mg SC DAILY [facility] Last Admin: 06/30/19 07:37 Dose: 40 mg Documented by: Folic Acid (Folic Acid) 1 mg PO DAILY@0800 [facility] Last Admin: 06/30/19 07:37 Dose: 1 mg Documented by: Gabapentin (Neurontin) 300 mg PO Q8H PRN PRN PRN Reason: moderate to severe anxiety Last Admin: 06/28/19 23:26 Dose: 300 mg Documented by: Glucagon () 1 mg IM .X1 PRN PRN Reason: Hypoglycemia Hydroxyzine Pamoate (Vistaril Pamoate Capsule) 50 mg PO Q4H PRN PRN PRN Reason: mild anxiety Sodium Chloride () 250 mls @ 15 mls/hr IV .[id number] PRN PRN Reason: Saline Flush Sodium Chloride () 250 mls @ 15 mls/hr IV .[id number] PRN PRN Reason: Additional IVPB Infusion Loperamide HCl (Imodium) 2 mg PO Q4H PRN PRN PRN Reason: LOOSE STOOLS Lorazepam (Ativan) 1 mg PO Q4H [facility]; Taper Stop: 07/03/19 06:19 Last Admin: 06/30/19 10:41 Dose: 1 mg Documented by: Lorazepam (Ativan) 2 mg PO Q2H PRN PRN; Protocol PRN Reason: CIWA score > 8 but <15 Lorazepam (Ativan) 2 mg PO UD PRN; Protocol PRN Reason: CIWA score >/=15. Lorazepam (Ativan) 2 mg IV Q2H PRN PRN; Protocol PRN Reason: CIWA score > 8 but <15 Lorazepam (Ativan) 2 mg IV UD PRN; Protocol PRN Reason: CIWA score >/=15. Losartan Potassium (Cozaar) 100 mg PO DAILY [facility] Meloxicam (Mobic) 7.5 mg PO DAILY@1200 [facility] Last Admin: 06/30/19 11:31 Dose: 7.5 mg Documented by: Nicotine (Nicoderm Cq ([facility])) 21 mg TRANSDERM. DAILY [facility] Last Admin: 06/30/19 07:36 Dose: 21 mg Documented by: Nicotine Polacrilex (Rugby Nicotine ([facility])) 4 mg PO Q2H PRN PRN PRN Reason: Nicotine Craving Last Admin: 06/30/19 06:12 Dose: 4 mg Documented by: Ondansetron HCl (Zofran Odt) 8 mg PO Q8H PRN PRN PRN Reason: NAUSEA Pantoprazole Sodium (Protonix) 40 mg PO DAILY [facility] Last Admin: 06/30/19 07:37 Dose: 40 mg Documented by: Potassium Chloride (K-Dur) 40 meq PO X1 ONE Stop: 06/30/19 12:10 Sodium Chloride () 10 - 40 ml IV UD PRN PRN Reason: SALINE FLUSH Thiamine HCl (Vitamin B1) 100 mg PO DAILYCM [facility] Last Admin: 06/30/19 07:37 Dose: 100 mg Documented by: Trazodone HCl (Desyrel) 100 mg PO QHS PRN PRN PRN Reason: INSOMNIA Last Admin: 06/29/19 22:02 Dose: 100 mg Documented by: STROKE Vital Signs/Narrative: Vital Signs Temp Pulse Resp BP 06/30/19 10:44 98.4 F 96 16 144/101 H Medical Necessity - Tobacco Use Smoking Status: Current every day smoker Assessment/Plan All Active Problems Chronic hyponatremia (Acute) Alcohol abuse (Acute) Alcohol withdrawal (Acute) Alcoholism (Acute) Angioedema of lips (Acute) 1. Hyponatremia likely secondary to beer potomania Patient's admitting sodium was 122, sodium is 133 Urine osmolarity 230, serum osmolarity 270, urine sodium 80, TSH 1.67 On fluid restriction Will continue to monitor 2. Acute alcohol withdrawal, CIWA 0, stable vitals On thiamine 3. Right distal tibia/fibula fracture, s/p repair on 06/14/19 Orthopedics surgery consulted 4. Nicotine disorder, on replacement 5. Hypertension, stable On amlodipine, Losartan 6. DVT PPx- Lovenox SC Inpatient E&M: 87879 Subs Hosp L2
[2019-06-30] MEDS: hydrOXYzine PAM 25 MG Capsule 50 MG PO ×2 (12:29→19:59)
--- NOTE | 2019-06-30 12:34 | PN_ITS ---
Subjective: This is a 53-year-old male who has been admitted to [facility] for alcohol detox. On June 14, 2019 Dr. Johnathan Felipe performed an intramedullary nail right tibia with an open reduction internal fixation of right posterior malleolus ankle fracture, irrigation and debridement of right open tibial fracture, right second metatarsal fracture, third metatarsal fracture and fourth metatarsal fracture. He is 16 days postop. The patient was supposed to be seen at [facility] for a postop appointment at 2 weeks. The patient states his pain is significantly controlled on medications. He denies fevers, chills, shortness of breath, chest pain, lightheadedness, dizziness or recent infections. He has remained nonweightbearing on the right lower extremity with the assistance of a walker. He has also use the assistance of a wheelchair when at home. Objective: Vital signs stable. Patient is afebrile. Patient is able to plantar flex and dorsiflex right lower extremity with stiffness. Sensation is intact to light touch to saphenous, sural, superficial and deep peroneal and tibial nerve distributions. Dressing and posterior splint was removed. The adrienne and sutures were removed. The patient tolerated the procedure well. Incisions are healing well with no erythema, active drainage or signs of infection. No signs of wound dehiscence. The wound nurse was consulted for wound management while in the hospital. Negative Homans bilaterally. Negative signs and symptoms of DVT. - Physical Exam Vitals/I&O's: Vital Signs Temp Pulse Resp BP Pulse Ox 98.4 F 96 16 144/101 H 97 06/30/19 10:44 06/30/19 10:44 06/30/19 10:44 06/30/19 10:44 06/30/19 07:25 Oxygen Delivery Method Room Air Weight: 74.9 kg Body Mass Index (BMI) 23.0 Intake and Output for Last 24 Hours 06/28/19 06/29/19 06/30/19 23:59 23:59 23:59 Intake Total 1000 / 1640 3580 / 3980 800 / 800 Output Total 1450 / 2050 600 / 600 Balance 1000 / 990 2130 / 1930 200 / 200 General: Alert, Oriented x3, Cooperative, No apparent distress Skin: Incision - Right lower extremity. Neurological: Sensory exam intact to light touch and pain Psych/Mental Status: Normal Affect, Appropriate Laboratory Results 04/28/20 11:40: TSH 1.67 06/29/19 15:40: Serum Osmolality 270 L 06/29/19 16:13: POC Glucose 104 06/29/19 16:50: Urine Osmolality 230 06/29/19 16:50: Ur Random Sodium 80 06/30/19 05:27: Sodium 133 L, Potassium 3.3 L, Chloride 101, Carbon Dioxide 27.0, Anion Gap 5, BUN 5 L, Creatinine 0.51 L, Estim Creat Clear Calc 175.42, Est GFR (MDRD) Af Amer 217, Est GFR (MDRD) Non-Af 179, BUN/Creatinine Ratio 9.8 L, Glucose 96, Calcium 8.6, Total Bilirubin 0.40, AST 61 H, ALT 45, Alkaline Phosphatase 146 H, Total Protein 6.3 L, Albumin 2.7 L, Globulin 3.6, Albumin/Globulin Ratio 0.8 L Current Medications Amlodipine Besylate (Norvasc) 10 mg PO DAILY [facility] Last Admin: 06/30/19 07:37 Dose: 10 mg Documented by: Aspirin (Aspirin, Baby) 81 mg PO BIDCM [facility] Last Admin: 06/30/19 07:37 Dose: 81 mg Documented by: Dextrose (D50w Syringe) 0 gm IV X1 PRN; Protocol PRN Reason: Hypoglycemia Dicyclomine HCl (Bentyl) 20 mg PO Q6H PRN PRN PRN Reason: abdominal discomfort Enoxaparin Sodium (Lovenox) 40 mg SC DAILY [facility] Last Admin: 06/30/19 07:37 Dose: 40 mg Documented by: Folic Acid (Folic Acid) 1 mg PO DAILY@0800 [facility] Last Admin: 06/30/19 07:37 Dose: 1 mg Documented by: Gabapentin (Neurontin) 300 mg PO Q8H PRN PRN PRN Reason: moderate to severe anxiety Last Admin: 06/28/19 23:26 Dose: 300 mg Documented by: Glucagon () 1 mg IM .X1 PRN PRN Reason: Hypoglycemia Hydroxyzine Pamoate (Vistaril Pamoate Capsule) 50 mg PO Q4H PRN PRN PRN Reason: mild anxiety Last Admin: 06/30/19 12:29 Dose: 50 mg Documented by: Sodium Chloride () 250 mls @ 15 mls/hr IV .[id number] PRN PRN Reason: Saline Flush Sodium Chloride () 250 mls @ 15 mls/hr IV .[id number] PRN PRN Reason: Additional IVPB Infusion Loperamide HCl (Imodium) 2 mg PO Q4H PRN PRN PRN Reason: LOOSE STOOLS Lorazepam (Ativan) 1 mg PO Q4H [facility]; Taper Stop: 07/03/19 06:19 Last Admin: 06/30/19 10:41 Dose: 1 mg Documented by: Lorazepam (Ativan) 2 mg PO Q2H PRN PRN; Protocol PRN Reason: CIWA score > 8 but <15 Lorazepam (Ativan) 2 mg PO UD PRN; Protocol PRN Reason: CIWA score >/=15. Lorazepam (Ativan) 2 mg IV Q2H PRN PRN; Protocol PRN Reason: CIWA score > 8 but <15 Lorazepam (Ativan) 2 mg IV UD PRN; Protocol PRN Reason: CIWA score >/=15. Losartan Potassium (Cozaar) 100 mg PO DAILY [facility] Meloxicam (Mobic) 7.5 mg PO DAILY@1200 [facility] Last Admin: 06/30/19 11:31 Dose: 7.5 mg Documented by: Nicotine (Nicoderm Cq ([facility])) 21 mg TRANSDERM. DAILY [facility] Last Admin: 06/30/19 07:36 Dose: 21 mg Documented by: Nicotine Polacrilex (Rugby Nicotine ([facility])) 4 mg PO Q2H PRN PRN PRN Reason: Nicotine Craving Last Admin: 06/30/19 12:27 Dose: 4 mg Documented by: Ondansetron HCl (Zofran Odt) 8 mg PO Q8H PRN PRN PRN Reason: NAUSEA Pantoprazole Sodium (Protonix) 40 mg PO DAILY [facility] Last Admin: 06/30/19 07:37 Dose: 40 mg Documented by: Sodium Chloride () 10 - 40 ml IV UD PRN PRN Reason: SALINE FLUSH Thi[facility]) [facility] Last Admin: 06/30/19 07:37 Dose: 100 mg Documented by: Trazodone HCl (Desyrel) 100 mg PO QHS PRN PRN PRN Reason: INSOMNIA Last Admin: 06/29/19 22:02 Dose: 100 mg Documented by: Medical Necessity - Tobacco Use Smoking Status: Current every day smoker Assessment/Plan All Active Problems Chronic hyponatremia (Acute) Alcohol abuse (Acute) Alcohol withdrawal (Acute) Alcoholism (Acute) Angioedema of lips (Acute) 1. Status post medullary nail right tibia with open reduction internal fixation of right posterior malleolus ankle fracture, irrigation debridement of right open tibia fracture, right second metatarsal fracture, third metatarsal fracture and fourth metatarsal fracture post operative day #16. 2. Continue pain medications: Oxycodone and meloxicam 3. DVT prophylaxis: Aspirin 81 mg twice daily 4. PT/OT: Nonweightbearing for 6 weeks in a pneumatic walking boot. 6. Encouraged incentive spirometry. 8. Continue postoperative medical management per medicine. 9: Postoperative drainage: Right lower extremity should remain clean and dry. 9. Disposition: Patient is orthopedically stable. Okay for discharge to rehab when medically ready. Orthopedics is signing off please contact with any questions or concerns. Patient should follow-up at [facility] in 4 weeks. He should continue on aspirin 81 mg until 4 weeks postoperatively. Continue with pain medication as prescribed per medicine.
--- NOTE | 2019-06-30 12:56 | NURSING ---
wound photo: right medial lower leg
--- NOTE | 2019-06-30 14:47 | CHAPLAIN ---
Type of Pastoral Visit _x__ Initial Visit ___ Follow-up Visit ___ On-call Visit ___ General Patient Visit ___ Spiritual Assessment ___ Family Conference ___ Bereavement ___ Rapid Response ___ Code Blue ___ Other (describe below) Pastoral Care Referral From _x__ Patient ___ Family ___ Nurse ___ Physician ___ Health Education Director ___ Utility Aide ___ Other (describe below) Sacrament/Intervention _x__ Active listening ___ Anointing ___ Anabaptist ___ Bereavement ___ Communion ___ Christelle exploration ___ _x__ Life review _x__ Prayer ___ Reconciliation ___ Sacrament of Sick _x__ Supportive presence ___ Wedding ___ Other (describe below) Pastoral Comments patient is welcoming of visit from this orthopedic shoes salesperson; pt is somewhat tearful during the visit; pt talks about his leg injury and how scared of what could have been meaning the loss of use of leg, not able to walk again, being dependent on other people, and not able to help others; pt admits that he made 'bad choices' and that he 'will not drink anymore'; pt admits that he has very limited support that includes a roommate and a brother; pt states that he will engage with 180 for services after discharge although 'that didn't help before'; pt states he is undergoing physical therapy now to improve 'my strength'; pt asks questions about scientology and says he believes in God; welcomes a prayer;
--- NOTE | 2019-06-30 15:17 | ADDICTION ---
This comic book writer met with patient in his room to continue discharge planning and to introduce patient to Rig Mechanic from [facility]. He was alert and oriented x4 but appeared to have depressed mood/affect. Patient reported that he is having a difficult time being from his significant other and feels scared because they drank alcohol together for most of their relationship. He reported that he was considering leaving [facility] AMA but responded well to this comic book writer's intervention and stated that he will stay and complete medical withdrawal management protocol. He is scheduled for an initial appointment and ongoing services at [facility] following discharge from [facility]. His initial appointment is scheduled for 11am on Friday07/02/2019. He stated that he is planning to attend this session and is amiable to ongoing services with [facility]. He was given intake paperwork to complete in preparation for this appointment. [facility] LOC 4.0 Medically Managed Intensive Inpatient Services Dimension1: Acute Intoxication and/or Withdrawal Potential Patient reports no current intoxication, noting his last date of use was 06/28/2019. He is currently engaged in medical withdrawal management and is receiving Ativan, per his report, for help with withdrawal symptoms. He reports a history of shakiness, nausea, vomiting, dizziness, body aches during withdrawal. He reports daily alcohol use prior to engaging in medical withdrawal management. He will likely experience severe withdrawal symptoms if he does not complete medical withdrawal management protocol. Dimension2: Biomedical Conditions and Complications Patient reports that he had surgery on his right leg/ankle recently and is experiencing some discomfort. He reports a history of high blood pressure. He reports no other BMC/C. Dimension3: Emotional, Behavioral or Cognitive Conditions and Complications Patient was alert and oriented x4, presented with depressed mood/affect. Appears to have average intellectual capabilities and interacted appropriately. Patient reported that he wanted to leave if my partner leaves indicating a potential for barriers related to this relationship. He reports no SI/HI. No psychosis noted. Dimension4: Readiness to Change Patient presents in the contemplation stage of change as evidenced by his knowledge of problematic behaviors with limited internal motivation to change behaviors as evidenced by reliance on partner's decision to complete medical withdrawal management. Dimension5: Relapse, Continued Use or Continued Problem Potential Patient is at a high risk of relapse based on length of use, amount of use and motivating factors for use including boredom from not working. Patient does not appear to have appropriate recovery skills. Patient did not state awareness of triggers outside of not working. This comic book writer will refer for MAT. Dimension6: Recovery/Living Environment Patient reports that he lives independently, with his partner, in [place], [place]. Partner is also engaging in medical withdrawal management services. He reports prior use of alcohol in his home. He reports that his primary support people actively use alcohol. He reports resistance to mutual aid meetings and does not currently have a sponsor. He reported limited sober support people. He is engaged with Peer Support with
[2019-06-30] MEDS: Gabapentin 300 MG Capsule PO (16:07)
[2019-06-30] MEDS: traZODone 100 MG Tablet PO (21:58)
[2019-07-01] MEDS: LORazepam 1 MG Tablet PO ×3 (02:25→12:02)
[2019-07-01 06:00] VITALS: BP 156/97; PULSE 110; RESP 18; TEMP 38; O2SAT 94
[2019-07-01 08:04] LABS: Absolute Lymphocyte Count 1.02 X10^3/uL (0.83-4.51); Absolute Neutrophil Count 12.1 X10^3/uL (2.0-7.7); Basophil# 0.04 X10^3/uL; Basophil% 0.3 % (0-1); Eosinophils% 0.7 % (0-5); Hematocrit 30.2 % (40-54); Hemoglobin 10.2 g/dL (13.0-16.5); Lymphocyte # 1.02 X10^3/ul (4.0); Lymphocyte % 7.1 % (19-41); Mean Corp Hgb Conc 33.8 g/dL (32-36); Mean Corpuscular Volume 97.7 fL (80-94); Mean Platelet Vol. 10.1 fl (6.2-12.0); Monocyte# 1.02 X10^3/uL; Monocyte% 7.1 % (0-10); NRBC Flagged by Analyzer 0 % (0-5); Neutrophil # 12.11 X10^3/uL (2.7-7.7); Neutrophil % 84.5 % (47-70); Platelet Count 201 K/mm3 (150-450); RBC Distribution Width CV 13.2 % (11.6-14.6); RBC Distribution Width SD 47.2 fl (35.1-43.9); Red Blood Count 3.09 M/mm3 (4.6-6.2); White Blood Count 14.3 K/mm3 (4.4-11.0)
[2019-07-01 08:24] LABS: ALB/GLOB Ratio 0.8 RATIO (0.9-2.4); AST(SGOT) 53 U/L (15-37); Alanine Aminotransfer ALT/SGPT 44 U/L (16-61); Albumin, Serum 3.1 g/dL (3.2-5.0); Alkaline Phosphatase 160 U/L (45-117); Anion Gap 10 (5-15); BUN 6 mg/dL (7-18); BUN/Creat Ratio 10.9 RATIO (10-20); Calcium,Total 8.9 mg/dL (8.5-10.1); Chloride 96 mmol/L (98-107); Creatinine, Serum 0.55 mg/dL (0.70-1.30); EST Glomerular Filtration Rate 165 mL/min (>60); Est Glom Filt Rate - Afr Amer 200 mL/min (>60); Estimated Creatinine Clearance 162.66 ml/min; Glucose 112 mg/dL (74-106); Potassium 3.5 mmol/L (3.5-5.1); Protein, Total 7.1 g/dL (6.4-8.2); Sodium Level 129 mmol/L (136-145)
--- NOTE | 2019-07-01 08:47 | PCM.PN.HOSP ---
Reason for Visit: Follow-up on acute alcohol withdrawal Subjective: Patient was seen and examined. He complains of pain in his right lower leg as he hobbles to the bathroom and back. He denied any other complaints. Objective: Physical exam: General: Alert, Oriented x3, Cooperative, No apparent distress HEENT: Atraumatic, PERRLA, EOMI, Normocephalic Oral: Moist Mucosa Neck: Supple Lungs: Clear to auscultation, Normal air movement Cardiovascular: Regular rate, Regular Rhythm, Normal S1, Normal S2, No murmurs Abdomen: Bowel Sounds Present, Soft, Non Tender, Non-Distended, No Hepato-splenomegaly Extremities: No edema Skin: No rashes Musculoskeletal: No Tenderness to Palpation of Joints or Extremities Lymphatic: No Cervical, Supraclavicular, or Inguinal Adenopathy Neurological: Cranial nerves II-XII grossly intact, Neuro grossly intact Psych/Mental Status: Normal Affect, Appropriate Vitals/I&O's: Vital Signs Temp Pulse Resp BP Pulse Ox 100.4 F H 110 H 18 156/97 H 94 07/01/19 06:00 07/01/19 06:00 07/01/19 06:00 07/01/19 06:00 07/01/19 06:00 Oxygen Delivery Method Room Air Weight: 74.9 kg Body Mass Index (BMI) 23.0 Intake and Output for Last 24 Hours 06/29/19 06/30/19 07/01/19 23:59 23:59 23:59 Intake Total 3580 / 3980 800 / 1500 700 / 700 Output Total 1450 / 2050 1700 / 2350 650 / 650 Balance 2130 / 1930 -900 / -850 50 / 50 Laboratory Results 07/01/19 07:40: WBC 14.3 H, RBC 3.09 L, Hgb 10.2 L, Hct 30.2 L, MCV 97.7 H, MCH 33.0 H, MCHC 33.8, RDW Std Deviation 47.2 H, RDW Coeff of Wen 13.2, Plt Count 201, MPV 10.1, Immature Gran % (Auto) 0.300, Neut % (Auto) 84.5 H, Lymph % (Auto) 7.1 L, [place] % (Auto) 7.1, Eos % (Auto) 0.7, Baso % (Auto) 0.3, Absolute Neuts (auto) 12.1 H, Absolute Lymphs (auto) 1.02, Nucleated RBC % 0 07/01/19 07:40: Sodium 129 L, Potassium 3.5, Chloride 96 L, Carbon Dioxide 23.0, Anion Gap 10, BUN 6 L, Creatinine 0.55 L, Estim Creat Clear Calc 162.66, Est GFR (MDRD) Af Amer 200, Est GFR (MDRD) Non-Af 165, BUN/Creatinine Ratio 10.9, Glucose 112 H, Calcium 8.9, Total Bilirubin 0.60, AST 53 H, ALT 44, Alkaline Phosphatase 160 H, Total Protein 7.1, Albumin 3.1 L, Globulin 4.0, Albumin/Globulin Ratio 0.8 L Current Medications Amlodipine Besylate (Norvasc) 10 mg PO DAILY [facility] Last Admin: 06/30/19 07:37 Dose: 10 mg Documented by: Aspirin (Aspirin, Baby) 81 mg PO BIDCM [facility] Last Admin: 06/30/19 16:05 Dose: 81 mg Documented by: Dextrose (D50w Syringe) 0 gm IV X1 PRN; Protocol PRN Reason: Hypoglycemia Dicyclomine HCl (Bentyl) 20 mg PO Q6H PRN PRN PRN Reason: abdominal discomfort Enoxaparin Sodium (Lovenox) 40 mg SC DAILY [facility] Last Admin: 06/30/19 07:37 Dose: 40 mg Documented by: Folic Acid (Folic Acid) 1 mg PO DAILY@0800 [facility] Last Admin: 06/30/19 07:37 Dose: 1 mg Documented by: Gabapentin (Neurontin) 300 mg PO Q8H PRN PRN PRN Reason: moderate to severe anxiety Last Admin: 06/30/19 16:07 Dose: 300 mg Documented by: Glucagon () 1 mg IM .X1 PRN PRN Reason: Hypoglycemia Hydroxyzine Pamoate (Vistaril Pamoate Capsule) 50 mg PO Q4H PRN PRN PRN Reason: mild anxiety Last Admin: 06/30/19 19:59 Dose: 50 mg Documented by: Sodium Chloride () 250 mls @ 15 mls/hr IV .[id number] PRN PRN Reason: Saline Flush Sodium Chloride () 250 mls @ 15 mls/hr IV .[id number] PRN PRN Reason: Additional IVPB Infusion Loperamide HCl (Imodium) 2 mg PO Q4H PRN PRN PRN Reason: LOOSE STOOLS Lorazepam (Ativan) 1 mg PO Q6H [facility]; Taper Stop: 07/03/19 06:19 Last Admin: 07/01/19 06:01 Dose: 1 mg Documented by: Lorazepam (Ativan) 2 mg PO Q2H PRN PRN; Protocol PRN Reason: CIWA score > 8 but <15 Lorazepam (Ativan) 2 mg PO UD PRN; Protocol PRN Reason: CIWA score >/=15. Lorazepam (Ativan) 2 mg IV Q2H PRN PRN; Protocol PRN Reason: CIWA score > 8 but <15 Lorazepam (Ativan) 2 mg IV UD PRN; Protocol PRN Reason: CIWA score >/=15. Losartan Potassium (Cozaar) 100 mg PO DAILY [facility] Meloxicam (Mobic) 7.5 mg PO DAILY@1200 [facility] Last Admin: 06/30/19 11:31 Dose: 7.5 mg Documented by: Nicotine (Nicoderm Cq (kc)) 21 mg TRANSDERM. DAILY [facility] Last Admin: 06/30/19 07:36 Dose: 21 mg Documented by: Nicotine Polacrilex (Rugby Nicotine ([facility])) 4 mg PO Q2H PRN PRN PRN Reason: Nicotine Craving Last Admin: 07/01/19 06:04 Dose: 4 mg Documented by: Ondansetron HCl (Zofran Odt) 8 mg PO Q8H PRN PRN PRN Reason: NAUSEA Pantoprazole Sodium (Protonix) 40 mg PO DAILY [facility] Last Admin: 06/30/19 07:37 Dose: 40 mg Documented by: Sodium Chloride () 10 - 40 ml IV UD PRN PRN Reason: SALINE FLUSH [facility]) [facility] Last Admin: 06/30/19 07:37 Dose: 100 mg Documented by: Trazodone HCl (Desyrel) 100 mg PO QHS PRN PRN PRN Reason: INSOMNIA Last Admin: 06/30/19 21:58 Dose: 100 mg Documented by: STROKE Vital Signs/Narrative: Vital Signs Temp Pulse Resp BP Pulse Ox 07/01/19 06:00 100.4 F H 110 H 18 156/97 H 94 Medical Necessity - Tobacco Use Smoking Status: Current every day smoker Assessment/Plan All Active Problems Chronic hyponatremia (Acute) Alcohol abuse (Acute) Alcohol withdrawal (Acute) Alcoholism (Acute) Angioedema of lips (Acute) 1.Hypotonic Hyponatremia likely secondary to beer potomania Patient's admitting sodium was 122, sodium is 129 today Urine osmolarity 230, serum osmolarity 270, urine sodium 80, TSH 1.67 On fluid restriction Will check serum cortisol in am, nephrology consult 2. Acute alcohol withdrawal, CIWA 0, stable vitals On thiamine, folic acid 3. Right distal tibia/fibula fracture, s/p repair on 06/14/19 X-rays of right tib/fib is stable Orthopedics surgery consulted 4. Nicotine disorder, on replacement 5. Hypertension, fairly uncontroled, likely secondary to pain Continue on amlodipine, Losartan 6. DVT PPx- Lovenox SC Inpatient E&M: [id number] Subs Hosp L2
[2019-07-01 10:00] VITALS: BP 138/96; PULSE 99; RESP 18; TEMP 36.8; O2SAT 96
[2019-07-01] MEDS: Thiamine Hydrochloride 100 MG Tablet PO (10:16)
[2019-07-01] MEDS: Folic Acid 1 MG Tablet PO (10:16)
[2019-07-01] MEDS: amLODIPine 10 MG Tablet PO (10:16)
[2019-07-01] MEDS: Pantoprazole Sodium 40 MG Tablet PO (10:16)
[2019-07-01] MEDS: traMADol 50 MG Tablet PO (10:16)
[2019-07-01] MEDS: Aspirin 81 MG TAB.CHEW PO (10:16)
[2019-07-01] MEDS: Enoxaparin 40 MG/0.4 ML Syringe SC (10:16)
[2019-07-01] MEDS: Losartan Potassium 100 MG Tablet PO (10:16)
--- NOTE | 2019-07-01 10:53 | ADDICTION ---
This justowriter operator met with patient, in his room, to finalize discharge plans and to complete intake paperwork for [facility]. Patient was alert and oriented but noted that he was in severe pain due to recent surgery on his right foot/ankle/leg. He stated that he spent his night having trouble sleeping due to pain, but the wound nurse identified that his boot was on too tight and loosened it which helped with the pain. He reported that he wants to discharge from [facility] today, this justowriter operator encouraged patient to stay until he is successfully discharged by his physician- he agreed. Patient confirmed that he plans to engage in outpatient treatment with [facility] following discharge from [facility] and confirmed that he has an appointment for assessment on 07/02/2019 at 11am. He reported that he plans to engage with [facility] Peer Support upon discharge, as well. He refused Residential treatment recommendation. This justowriter operator confirmed that patient has contact information for this justowriter operator and peer supporter, Mehnaz. [facility] LOC: 3.5 Clinically Managed High-Intensity Residential Services- Patient rejected, willing to engage in 1 Outpatient services. Dimension1: Acute Intoxication and/or Withdrawal Potential Patient reports no current intoxication, noting his last date of use as 06/28/2019. He reports that he has completed medical withdrawal management services with [facility] and is not experiencing withdrawal symptoms at this time. He reports a history of shakiness, physical discomfort, nausea, vomiting during active withdrawal. He reports daily use of alcohol prior to engaging with [facility]. Dimension2: Biomedical Conditions and Complications Patient reports that he had surgery on his right leg/ankle recently and is experiencing severe discomfort. He reports a history of high blood pressure. He reports no other BMC/C. Patient reports that he is in adequate physical health and that he will be able to engage in adequate physical activity upon discharge. He reports that he has access to food and water. Dimension3: Emotional, Behavioral or Cognitive Conditions and Complications Emotional: Patient presented with depressed mood/affect. He reported symptoms of depression including feeling isolated and withdrawn and feelings of sadness. He reported limited coping skills for mental health barriers. Behavioral: Patient reports a history of alcohol use related to symptoms of depression/boredom. He participated appropriately throughout session. Cognitive: Patient was oriented x4, identified problem thoughts versus healthy thoughts. Dimension4: Readiness to Change Patient identified external motivation(significant other) but did not identify internal motivation. He appears to be in the contemplation stage of change as evidenced by his identification of problem behaviors with limited verbalization of planning to modify problem behaviors following discharge. He reports plans to engage with [facility] for ongoing AoD treatment and peer support upon discharge from medical withdrawal management. Dimension5: Relapse, Continued Use or Continued Problem Potential Patient effectively identified problem situations and potential triggers. He processed problem situations and potential triggers but appeared to have barriers to identification of healthy coping skills. He reports motivation to engage in treatment. He is at a high risk of relapse due to history of use/relapse, limited sober support network and focus on external motivations rather than internal motivations. Dimension6: Recovery/Living Environment Patient reports that he lives independently, with his partner, in [place], [place]. Partner is also engaging in medical withdrawal management services. He reports prior use of alcohol in his home. He reports that his primary support people actively use alcohol. He reports resistance to mutual aid meetings and does not currently have a sponsor. He reported limited sober support people. He is engaged with Peer Support with [facility].
[2019-07-01] MEDS: Meloxicam 7.5 MG Tablet PO (12:02)
--- NOTE | 2019-07-01 12:28 | PCM.CONS.R ---
Consultation - Renal 07/01/19 PCP/ Referring MD: Requesting physician: [] Primary care physician: Abdullahi Hope III, MD Reason for Consultation:: Hyponatremia - History of Present Illness History of Present Illness: The patient is a 53 year old M who is admitted essentially for alcohol detox. Renal consulted for hyponatremia. Patient has known history of alcohol abuse and was seeing outpatient rehab. Did not follow-up recently and relapsed. Came back here for same issue. Was found to have severe hyponatremia with a sodium of 122. This is up to 129 today. Currently denies any complaints. Insisting on going home today. - Allergies Allergies: Allergies lisinopril Allergy (Verified 06/28/19 20:17) Angioedema aspirin Adverse Reaction (Verified 06/28/19 20:17) HEARTBURN codeine Adverse Reaction (Verified 06/28/19 20:17) NIGHTMARES - Current Medications Current Medications: Current Medications Amlodipine Besylate (Norvasc) 10 mg PO DAILY [facility] Last Admin: 07/01/19 10:16 Dose: 10 mg Documented by: Aspirin (Aspirin, Baby) 81 mg PO BIDCM [facility] Last Admin: 07/01/19 10:16 Dose: 81 mg Documented by: Dextrose (D50w Syringe) 0 gm IV X1 PRN; Protocol PRN Reason: Hypoglycemia Dicyclomine HCl (Bentyl) 20 mg PO Q6H PRN PRN PRN Reason: abdominal discomfort Enoxaparin Sodium (Lovenox) 40 mg SC DAILY [facility] Last Admin: 07/01/19 10:16 Dose: 40 mg Documented by: Folic Acid (Folic Acid) 1 mg PO DAILY@0800 [facility] Last Admin: 07/01/19 10:16 Dose: 1 mg Documented by: Gabapentin (Neurontin) 300 mg PO Q8H PRN PRN PRN Reason: moderate to severe anxiety Last Admin: 06/30/19 16:07 Dose: 300 mg Documented by: Glucagon () 1 mg IM .X1 PRN PRN Reason: Hypoglycemia Hydroxyzine Pamoate (Vistaril Pamoate Capsule) 50 mg PO Q4H PRN PRN PRN Reason: mild anxiety Last Admin: 06/30/19 19:59 Dose: 50 mg Documented by: Sodium Chloride () 250 mls @ 15 mls/hr IV .[id number] PRN PRN Reason: Saline Flush Sodium Chloride () 250 mls @ 15 mls/hr IV .[id number] PRN PRN Reason: Additional IVPB Infusion Loperamide HCl (Imodium) 2 mg PO Q4H PRN PRN PRN Reason: LOOSE STOOLS Lorazepam (Ativan) 1 mg PO Q6H [facility]; Taper Stop: 07/03/19 06:19 Last Admin: 07/01/19 12:02 Dose: 1 mg Documented by: Lorazepam (Ativan) 2 mg PO Q2H PRN PRN; Protocol PRN Reason: CIWA score > 8 but <15 Lorazepam (Ativan) 2 mg PO UD PRN; Protocol PRN Reason: CIWA score >/=15. Lorazepam (Ativan) 2 mg IV Q2H PRN PRN; Protocol PRN Reason: CIWA score > 8 but <15 Lorazepam (Ativan) 2 mg IV UD PRN; Protocol PRN Reason: CIWA score >/=15. Losartan Potassium (Cozaar) 100 mg PO DAILY [facility] Last Admin: 07/01/19 10:16 Dose: 100 mg Documented by: Meloxicam (Mobic) 7.5 mg PO DAILY@1200 [facility] Last Admin: 07/01/19 12:02 Dose: 7.5 mg Documented by: Nicotine (Nicoderm Cq (Pbkc)) 21 mg TRANSDERM. DAILY [facility] Last Admin: 07/01/19 10:16 Dose: 21 mg Documented by: Nicotine Polacrilex (Rugby Nicotine (Pbkc)) 4 mg PO Q2H PRN PRN PRN Reason: Nicotine Craving Last Admin: 07/01/19 12:02 Dose: 4 mg Documented by: Ondansetron HCl (Zofran Odt) 8 mg PO Q8H PRN PRN PRN Reason: NAUSEA Pantoprazole Sodium (Protonix) 40 mg PO DAILY [facility] Last Admin: 07/01/19 10:16 Dose: 40 mg Documented by: Sodium Chloride () 10 - 40 ml IV UD PRN PRN Reason: SALINE FLUSH Sodium Chloride (Sodium Chloride) 1 gm PO TID [facility] Th[facility] Last Admin: 07/01/19 10:16 Dose: 100 mg Documented by: Tramadol HCl (Ultram) 50 mg PO Q6H PRN PRN PRN Reason: Pain Score 6-10/10 Last Admin: 07/01/19 10:16 Dose: 50 mg Documented by: Trazodone HCl (Desyrel) 100 mg PO QHS PRN PRN PRN Reason: INSOMNIA Last Admin: 06/30/19 21:58 Dose: 100 mg Documented by: - 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) Tobacco use (Chronic) GERD (gastroesophageal reflux disease) (Chronic) Hypertension (Chronic) - Past Surgical History Surgical History: - - L testicle removal s/p torsion at 18 y/o, T+A. - Social History Smoking Status: Current every day smoker - Family History Maternal History Items: - - Patient notes a maternal family history of hypertension, heart disease. Paternal History Items: - - Patient notes a paternal family history of hypertension, heart disease and diabetes. Review of Systems Constitutional: Denies: Chills, Fever, Weight Change HEENT: Denies: Head Aches, Sinus Congestion, Sinus Drainage Cardiovascular: Denies: Chest Pain, Palpitations Respiratory: Denies: Cough, Shortness of breath at rest, Sputum production Gastrointestinal: Denies: Abdominal Pain, Nausea, Vomiting Genitourinary: Denies: Dysuria Musculoskeletal: Denies: Joint Pain, Joint Tenderness Skin: Denies: Rash, Wounds Neurological: Denies: Numbness, Tingling, Focal weakness Psychiatric: Denies: Anxiety, Depression, Homicidal Ideations, Suicidal Ideations Hematologic/ Lymphatic: Denies: Easy Bruising, Easy Bleeding - Physical Exam Vitals/I&O's: Vital Signs Temp Pulse Resp BP Pulse Ox 98.3 F 99 18 138/96 H 96 07/01/19 10:00 07/01/19 10:00 07/01/19 10:00 07/01/19 10:00 07/01/19 10:00 Oxygen Delivery Method Room Air Weight: 74.9 kg Body Mass Index (BMI) 23.0 Intake and Output for Last 24 Hours 06/29/19 06/30/19 07/01/19 23:59 23:59 23:59 Intake Total 3580 / 3980 800 / 1500 700 / 700 Output Total 145 / 0 1700 / 2350 650 / 650 Balance 2130 / 1930 -900 / -850 50 / 50 General: Alert, Oriented x3, Cooperative HEENT: Atraumatic, PERRLA, EOMI, Normocephalic Neck: Supple, No JVD, Negative Carotid Bruits Lungs: Clear to auscultation, Normal air movement Cardiovascular: Regular rate, No murmurs Abdomen: Bowel Sounds Present, Soft, Non Tender Extremities: No edema, Capillary Refill Less than 3 Seconds Skin: No rashes, No breakdown Musculoskeletal: No Tenderness to Palpation of Joints or Extremities Neurological: Cranial nerves II-XII grossly intact Psych/Mental Status: Normal Affect, Appropriate Comment: In a wheelchair due to fracture Laboratory Results 07/01/19 07:40: WBC 14.3 H, RBC 3.09 L, Hgb 10.2 L, Hct 30.2 L, MCV 97.7 H, MCH 33.0 H, MCHC 33.8, RDW Std Deviation 47.2 H, RDW Coeff of Wen 13.2, Plt Count 201, MPV 10.1, Immature Gran % (Auto) 0.300, Neut % (Auto) 84.5 H, Lymph % (Auto) 7.1 L, [place] % (Auto) 7.1, Eos % (Auto) 0.7, Baso % (Auto) 0.3, Absolute Neuts (auto) 12.1 H, Absolute Lymphs (auto) 1.02, Nucleated RBC % 0 07/01/19 07:40: Sodium 129 L, Potassium 3.5, Chloride 96 L, Carbon Dioxide 23.0, Anion Gap 10, BUN 6 L, Creatinine 0.55 L, Estim Creat Clear Calc 162.66, Est GFR (MDRD) Af Amer 200, Est GFR (MDRD) Non-Af 165, BUN/Creatinine Ratio 10.9, Glucose 112 H, Calcium 8.9, Total Bilirubin 0.60, AST 53 H, ALT 44, Alkaline Phosphatase 160 H, Total Protein 7.1, Albumin 3.1 L, Globulin 4.0, Albumin/Globulin Ratio 0.8 L Current Medications Amlodipine Besylate (Norvasc) 10 mg PO DAILY [facility] Last Admin: 07/01/19 10:16 Dose: 10 mg Documented by: Aspirin (Aspirin, Baby) 81 mg PO BIDCM [facility] Last Admin: 07/01/19 10:16 Dose: 81 mg Documented by: Dextrose (D50w Syringe) 0 gm IV X1 PRN; Protocol PRN Reason: Hypoglycemia Dicyclomine HCl (Bentyl) 20 mg PO Q6H PRN PRN PRN Reason: abdominal discomfort Enoxaparin Sodium (Lovenox) 40 mg SC DAILY [facility] Last Admin: 07/01/19 10:16 Dose: 40 mg Documented by: Folic Acid (Folic Acid) 1 mg PO DAILY@0800 [facility] Last Admin: 07/01/19 10:16 Dose: 1 mg Documented by: Gabapentin (Neurontin) 300 mg PO Q8H PRN PRN PRN Reason: moderate to severe anxiety Last Admin: 06/30/19 16:07 Dose: 300 mg Documented by: Glucagon () 1 mg IM .X1 PRN PRN Reason: Hypoglycemia Hydroxyzine Pamoate (Vistaril Pamoate Capsule) 50 mg PO Q4H PRN PRN PRN Reason: mild anxiety Last Admin: 06/30/19 19:59 Dose: 50 mg Documented by: Sodium Chloride () 250 mls @ 15 mls/hr IV .[id number] PRN PRN Reason: Saline Flush Sodium Chloride () 250 mls @ 15 mls/hr IV .[id number] PRN PRN Reason: Additional IVPB Infusion Loperamide HCl (Imodium) 2 mg PO Q4H PRN PRN PRN Reason: LOOSE STOOLS Lorazepam (Ativan) 1 mg PO Q6H [facility]; Taper Stop: 07/03/19 06:19 Last Admin: 07/01/19 12:02 Dose: 1 mg Documented by: Lorazepam (Ativan) 2 mg PO Q2H PRN PRN; Protocol PRN Reason: CIWA score > 8 but <15 Lorazepam (Ativan) 2 mg PO UD PRN; Protocol PRN Reason: CIWA score >/=15. Lorazepam (Ativan) 2 mg IV Q2H PRN PRN; Protocol PRN Reason: CIWA score > 8 but <15 Lorazepam (Ativan) 2 mg IV UD PRN; Protocol PRN Reason: CIWA score >/=15. Losartan Potassium (Cozaar) 100 mg PO DAILY [facility] Last Admin: 07/01/19 10:16 Dose: 100 mg Documented by: Meloxicam (Mobic) 7.5 mg PO DAILY@1200 [facility] Last Admin: 07/01/19 12:02 Dose: 7.5 mg Documented by: Nicotine (Nicoderm Cq ([facility])) 21 mg TRANSDERM. DAILY [facility] Last Admin: 07/01/19 10:16 Dose: 21 mg Documented by: Nicotine Polacrilex (Rugby Nicotine ([facility])) 4 mg PO Q2H PRN PRN PRN Reason: Nicotine Craving Last Admin: 07/01/19 12:02 Dose: 4 mg Documented by: Ondansetron HCl (Zofran Odt) 8 mg PO Q8H PRN PRN PRN Reason: NAUSEA Pantoprazole Sodium (Protonix) 40 mg PO DAILY [facility] Last Admin: 07/01/19 10:16 Dose: 40 mg Documented by: Sodium Chloride () 10 - 40 ml IV UD PRN PRN Reason: SALINE FLUSH Sodium Chloride (Sodium Chloride) 1 gm PO TID [facility] Thiamine [facility]) [facility] Last Admin: 07/01/19 10:16 Dose: 100 mg Documented by: Tramadol HCl (Ultram) 50 mg PO Q6H PRN PRN PRN Reason: Pain Score 6-10/10 Last Admin: 07/01/19 10:16 Dose: 50 mg Documented by: Trazodone HCl (Desyrel) 100 mg PO QHS PRN PRN PRN Reason: INSOMNIA Last Admin: 06/30/19 21:58 Dose: 100 mg Documented by: Assessment/Plan All Active Problems Chronic hyponatremia (Acute) Alcohol abuse (Acute) Alcohol withdrawal (Acute) Alcoholism (Acute) Angioedema of lips (Acute) Hyponatremia. At least history weinstein, this is consistent with beer potomania. He has known history of alcohol abuse, presented with severe hyponatremia, with IV fluids alone sodium is significantly improved. I see a urine sodium of 80. Not sure if with this was drawn after fluids or before. Sodium today is at 129. he is asymptomatic. Insisting on going home. Start salt tablets 1 g 3 times daily to be taken at home. Advised him to cut back on fluids otherwise.
--- NOTE | 2019-07-01 12:46 | NURSING ---
pt expressed wanting to be discharged home today stating I'm leaving one way or another updated MD. attempted educate pt on reasons for pt to still be in hospital pt stated I've not had alcohol symptoms for 2 days nothing is getting done here I want to go homeAMA paperwork reviewed and signed.
--- NOTE | 2019-07-01 13:10 | CHAPLAIN ---
Type of Pastoral Visit ___ Initial Visit ___ Follow-up Visit ___ On-call Visit _x__ General Patient Visit ___ Spiritual Assessment ___ Family Conference ___ Bereavement ___ Rapid Response ___ Code Blue ___ Other (describe below) Pastoral Care Referral From _x__ Patient ___ Family ___ Nurse ___ Physician ___ Size Cutter ___ Straw Hat Presser ___ Other (describe below) Sacrament/Intervention _x__ Active listening ___ Anointing ___ Anglican ___ Bereavement ___ Communion ___ Christelle exploration ___ ___ Life review ___ Prayer ___ Reconciliation ___ Sacrament of Sick ___ Supportive presence ___ Wedding ___ Other (describe below) Pastoral Comments patient was sitting in wheelchair at doorway of room; patient stated to this plastic welder that he was wanting to leave hospital and was feeling irritated; had a brief discussion about doing what is best even if it is not pleasant; pt asked to be remembered in prayer; affirmed that the staff at hospital are wanting the best for him
== END 2019-07-01 13:11 | disposition left against medical advice (07) | DRG 426 ==
LOC: ED 19:21 → MS3 06-29 04:41
PROVIDERS: Admitting Provider Family Medicine; Emergency Provider Emergency Medicine; PCP Family Medicine; Visit Provider Internal Medicine
DX: E87.1 Hypo-osmolality and hyponatremia (principal); F10.239 Alcohol dependence with withdrawal, unspecified; K21.9 Gastro-esophageal reflux disease without esophagitis; I10 Essential (primary) hypertension; F17.200 Nicotine dependence, unspecified, uncomplicated; Z79.1 Long term (current) use of non-steroidal anti-inflammatories (NSAID); Y90.8 Blood alcohol level of 240 mg/100 ml or more
CPT/HCPCS: 36415; 73590; 80048; 80053; 80307; 80320; 82962; 83930; 83935; 84300; 84443; 85025; 96360; 97110; 97116; 97162; 97166; 97530; 99285; 99406; J7030; A4216; G0480

== ENCOUNTER 2019-12-09 17:22 | Inpatient (IN) | payer MEDICAID, SELFPAY ==
[2019-12-09 17:23] VITALS: BP 152/109; PULSE 105; RESP 18; TEMP 36.2; O2SAT 99; BMI 24.6
--- NOTE | 2019-12-09 18:22 | EKG12_ITS ---
Test Reason : ARYTHMIA Blood Pressure : / mmHG Vent. Rate : 078 BPM Atrial Rate : 078 BPM P-R Int : 158 ms QRS Dur : 096 ms QT Int : 378 ms P-R-T Axes : 045 006 049 degrees QTc Int : 430 ms Normal sinus rhythm Septal infarct, age undetermined Abnormal ECG Confirmed by ELOISE MENDOSA, KATHRYN ([id number]), editor trade journal HANSEL DONIS ([id number]) on 12/15/2019 11:03:01 AM Referred By: CHERI Confirmed By:ZAK NAVAS MD
--- NOTE | 2019-12-09 18:22 | ED.DCSUM_ITS ---
History of Present Illness Chief Complaint: Substance Abuse Informant: Patient Narrative: 54-year-old male with past medical history of GERD and hypertension presents with concern for alcoholism. Requesting detox. States that he drinks 15 to 20 cans of beer per day. Patient is also a heavy smoker. Denies any con commitment drug abuse. Past Medical History - Allergies and Home Meds Allergies/Adverse Reactions: Allergies lisinopril Allergy (Verified 12/09/19 17:23) Angioedema aspirin Adverse Reaction (Verified 12/09/19 17:23) HEARTBURN codeine Adverse Reaction (Verified 12/09/19 17:23) NIGHTMARES Prior records reviewed: Yes Past Medical History: - - HTN and GERD Surgical History: - - L testicle removal s/p torsion at 18 y/o, T+A. Lives: Alone Smoking Status: Current every day smoker Alcohol: Heavy Drugs: None - Family History Maternal Family History: Reports: - - Patient notes a maternal family history of hypertension, heart disease. Paternal Family History: Reports: - - Patient notes a paternal family history of hypertension, heart disease and diabetes. Review of Systems General: Denies: Chills, Fever, Sweats Eyes: Denies: Visual changes - bilaterally, Diplopia ENT: Denies: Rhinorrhea, Sore throat Cardiovascular: Denies: Chest pain, Palpitations Respiratory: Denies: Dyspnea, Cough, Dyspnea on exertion Gastrointestinal: Denies: Abdominal pain, Nausea, Vomiting, Diarrhea, Melena, Hematochezia Genitourinary: Denies: Dysuria, Hematuria, Frequency Musculoskeletal: Denies: Back pain, Extremity Pain Skin: Denies: Rash, Wounds Neurological: Denies: Headache, Weakness, Numbness Physical Exam Vital Signs/Narrative: Vital Signs Temp Pulse Resp BP Pulse Ox 12/09/19 17:23 97.2 F L 105 H 18 152/109 H 99 Inital Vital Signs reviewed: Yes General: Well nourished, Well developed, No Acute Distress Head: Normocephalic, Atraumatic Eyes: Perrl, EOMI ENT: Moist mucous membranes, No rhinorrhea Neck: Supple, Nontender Cardiovascular: Regular rate, Regular rhythm, No murmurs Respiratory: No distress, CTA bilaterally, Chest nontender Abdomen: Soft, Nontender, Nondistended, Normal bowel sounds Back: Nontender, Normal Inspection Extremities: Nontender, No edema Skin: Normal color, No rash Neurological: Alert, Oriented x3, Cranial nerves II-XII grossly intact, Normal Strength, Normal Sensation Psychological: Normal affect, Normal Mood Diagnostic/Tx/Re-eval Laboratory Data 12/09/19 12/09/19 12/09/19 18:45 18:45 18:45 WBC 11.4 H RBC 5.01 Hgb 15.3 Hct 44.7 MCV 89.2 MCH 30.5 MCHC 34.2 RDW Std Deviation 43.8 RDW Coeff of Wen 13.5 Plt Count 259 MPV 9.7 Immature Gran % (Auto) 0.400 Neut % (Auto) 58.4 Lymph % (Auto) 26.3 [place] % (Auto) 12.4 H Eos % (Auto) 2.1 Baso % (Auto) 0.4 Absolute Neuts (auto) 6.7 Absolute Lymphs (auto) 2.99 Nucleated RBC % 0 Sodium 123 L Potassium 3.7 Chloride 88 L Carbon Dioxide 25.0 Anion Gap 10 BUN 4 L Creatinine 0.61 L Estim Creat Clear Calc 145.73 Est GFR (MDRD) Af Amer 176 Est GFR (MDRD) Non-Af 146 BUN/Creatinine Ratio 6.5 L Glucose 95 Calcium 8.7 Total Bilirubin 0.30 AST 63 H ALT 67 H Alkaline Phosphatase 119 H Total Protein 8.0 Albumin 3.7 Globulin 4.3 H Albumin/Globulin Ratio 0.9 Urine Opiates Screen Urine Methadone Screen Ur Barbiturates Screen Ur Phencyclidine Scrn Ur Amphetamines Screen U Methamphetamin-MDMA U Benzodiazepines Scrn Urine Cocaine Screen U Cannabinoids Screen Ur Drug Screen Comment Ethyl Alcohol 132.0 12/09/19 19:20 WBC RBC Hgb Hct MCV MCH MCHC RDW Std Deviation RDW Coeff of Wen Plt Count MPV Immature Gran % (Auto) Neut % (Auto) Lymph % (Auto) [place] % (Auto) Eos % (Auto) Baso % (Auto) Absolute Neuts (auto) Absolute Lymphs (auto) Nucleated RBC % Sodium Potassium Chloride Carbon Dioxide Anion Gap BUN Creatinine Estim Creat Clear Calc Est GFR (MDRD) Af Amer Est GFR (MDRD) Non-Af BUN/Creatinine Ratio Glucose Calcium Total Bilirubin AST ALT Alkaline Phosphatase Total Protein Albumin Globulin Albumin/Globulin Ratio Urine Opiates Screen NEGATIVE Urine Methadone Screen NEGATIVE Ur Barbiturates Screen NEGATIVE Ur Phencyclidine Scrn NEGATIVE Ur Amphetamines Screen NEGATIVE U Methamphetamin-MDMA NEGATIVE U Benzodiazepines Scrn NEGATIVE Urine Cocaine Screen NEGATIVE U Cannabinoids Screen POSITIVE H Ur Drug Screen Comment Ethyl Alcohol - Rhythm Strip Rhythm Strip: Sinus Rhythm Rate: 78 Ectopy: None - EKG Initial EKG Interpretation: Sinus Rhythm - Sinus rhythm at 78 bpm. MO interval 158 ms. QTC of [address] changes. - Medical Decision Making Patient appears well nontoxic. Tachycardic and hypertensive upon arrival. Given Ativan and fluid bolus. Lab work within normal limits. Patient will be admitted for alcohol detoxification. Spoke with hospitalist who is agreeable with admission. Patient stable at time of admission. Impression: 1. Alcohol abuse 2. Tobacco abuse ED Disposition - Plan for ED Patient: Disposition: Acute Care [facility]
[2019-12-09 18:55] LABS: Absolute Lymphocyte Count 2.99 X10^3/uL (0.83-4.51); Absolute Neutrophil Count 6.7 X10^3/uL (2.0-7.7); Basophil# 0.04 X10^3/uL; Basophil% 0.4 % (0-1); Eosinophil# 0.24 X10^3/uL; Eosinophils% 2.1 % (0-5); Hematocrit 44.7 % (40-54); Hemoglobin 15.3 g/dL (13.0-16.5); Lymphocyte # 2.99 X10^3/ul (4.0); Lymphocyte % 26.3 % (19-41); Mean Corp Hgb Conc 34.2 g/dL (32-36); Mean Corpuscular Hgb 30.5 pg (27.0-32.0); Mean Corpuscular Volume 89.2 fL (80-94); Mean Platelet Vol. 9.7 fl (6.2-12.0); Monocyte# 1.41 X10^3/uL; Monocyte% 12.4 % (0-10); NRBC Flagged by Analyzer 0 % (0-5); Neutrophil # 6.65 X10^3/uL (2.7-7.7); Neutrophil % 58.4 % (47-70); Platelet Count 259 K/mm3 (150-450); RBC Distribution Width CV 13.5 % (11.6-14.6); RBC Distribution Width SD 43.8 fl (35.1-43.9); Red Blood Count 5.01 M/mm3 (4.6-6.2); White Blood Count 11.4 K/mm3 (4.4-11.0)
[2019-12-09] MEDS: 0.9% Normal Saline 1,000 ML 999 ML IV (19:01)
[2019-12-09] MEDS: LORazepam 2 MG/ML Syringe 1 MG IV (19:01)
[2019-12-09 19:02] VITALS: RESP 16; TEMP 36.4
[2019-12-09 19:16] LABS: ALB/GLOB Ratio 0.9 RATIO (0.9-2.4); AST(SGOT) 63 U/L (15-37); Alanine Aminotransfer ALT/SGPT 67 U/L (16-61); Albumin, Serum 3.7 g/dL (3.2-5.0); Alkaline Phosphatase 119 U/L (45-117); Anion Gap 10 (5-15); BUN 4 mg/dL (7-18); BUN/Creat Ratio 6.5 RATIO (10-20); Calcium,Total 8.7 mg/dL (8.5-10.1); Chloride 88 mmol/L (98-107); Creatinine, Serum 0.61 mg/dL (0.70-1.30); EST Glomerular Filtration Rate 146 mL/min (>60); Est Glom Filt Rate - Afr Amer 176 mL/min (>60); Estimated Creatinine Clearance 145.73 ml/min; Globulin 4.3 g/dL (2.2-4.2); Glucose 95 mg/dL (74-106); Potassium 3.7 mmol/L (3.5-5.1); Sodium Level 123 mmol/L (136-145)
[2019-12-09 19:23] VITALS: BP 144/91; PULSE 95; RESP 18; O2SAT 96
[2019-12-09 20:13] LABS: Amphetamine Urine VISTA NEGATIVE (<1000 ng/mL); Barbiturate Urine VISTA NEGATIVE (< 200 ng/mL); Benzodiazepine Urine VISTA NEGATIVE (< 200 ng/mL); Cocaine Urine VISTA NEGATIVE (< 300 ng/mL); Ecstacy Urine VISTA NEGATIVE (< 500 ng/mL); Methadone Urine VISTA NEGATIVE (< 300 ng/mL); PCP Urine VISTA NEGATIVE (< 25 ng/mL); THC Urine VISTA POSITIVE (< 50 ng/mL); Vista UDS pH Range 6
[2019-12-09 20:54] VITALS: BP 149/92; PULSE 80; RESP 18; TEMP 36.6; O2SAT 96
[2019-12-09 21:13] VITALS: BP 153/104; PULSE 114; RESP 18; TEMP 37.3; O2SAT 97
[2019-12-09 21:16] VITALS: BMI 23.8
[2019-12-09 21:18] VITALS: BMI 23.8
--- NOTE | 2019-12-09 21:30 | HP.PCM_ITS ---
Problem List (1) Alcohol withdrawal Status: Acute Qualifiers: Complication of substance-induced condition: with unspecified complication Qualified Code(s): F10.239 - Alcohol dependence with withdrawal, unspecified (2) COPD (chronic obstructive pulmonary disease) Status: Suspected Qualifiers: COPD type: unspecified COPD Qualified Code(s): J44.9 - Chronic obstructive pulmonary disease, unspecified (3) Elevated LFTs Status: Chronic (4) Chronic hyponatremia Status: Chronic (5) Alcohol abuse Status: Chronic (6) Tobacco use Status: Chronic (7) GERD (gastroesophageal reflux disease) Status: Chronic Qualifiers: Esophagitis presence: esophagitis presence not specified Qualified Code(s): K21.9 - Gastro-esophageal reflux disease without esophagitis (8) Hypertension Status: Chronic Qualifiers: Hypertension type: essential hypertension Qualified Code(s): I10 - Essential (primary) hypertension History of Present Illness Date of Admission: 12/09/19 Chief Complaint: Acute EtOH Withdrawal The patient is a 54 y/o M w/ PMHx: GERD, Heavy Tobacco use, Suspected Chronic COPD, HTN, Chronic back pain w/ radiculopathy, Cannabis use, EtOH use (12-20 pack beer daily), Chronic Hyponatremia, Anxiety and Depression, Hx admission 06/13/19 secondary to mechanical fall secondary to intoxication with notable RLE trauma with open fracture requiring operative intervention with ongoing sobriety following his discharge who now re-presents to the [facility] ED on 12/09/19 as both he and his significant started drinking again over the last 2 weeks, progressively increasing his consumption noting that he was up to ~ 20 beers daily with self attempted decrease with onset acute EtOH withdrawal following last EtOH intake early AM on day of ED presentation with tremors, agitation, tactile disturbances, racing heart. Patient interested in attaining sober status. Discussed his living status as he continues to live with his significant who is also an alcoholic and he notes they had been doing well and both sober until recently. He is using a wheeled walker secondary to his ongoing RLE pain following his trauma and surgery. Work-up in the ED included T 97.2, heart rate 105, BP 152/109, respiratory rate 18, 99% on room air, CBC with WBC 11.4, hemoglobin 15.3, platelet 259 without market shift, CMP with sodium 123, chloride 88, BUN/creatinine 4/0.61, AST/ALT 63/67, alk phos 119, urine drug screen with positive cannabis, ethyl alcohol level 132. In the ED patient ministered normal saline in addition to Ativan 1 mg IV x1. 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) Chronic hyponatremia (Chronic) Elevated LFTs (Chronic) Alcohol abuse (Chronic) Tobacco use (Chronic) GERD (gastroesophageal reflux disease) (Chronic) Hypertension (Chronic) Allergies lisinopril Allergy (Verified 12/09/19 17:23) Angioedema aspirin Adverse Reaction (Verified 12/09/19 17:23) HEARTBURN codeine Adverse Reaction (Verified 12/09/19 17:23) NIGHTMARES Home Medications: Ambulatory Orders Medication Instructions Recorded Losartan Potassium 50 mg PO DAILY 08/17/17 Amlodipine [Norvasc] 10 mg PO DAILY 06/13/19 Aspirin [Aspirin, Baby] 81 mg PO DAILY 06/28/19 Pantoprazole Sodium [Protonix] 40 mg PO DAILY 06/28/19 Surgical History: - - L testicle removal s/p torsion at 18 y/o, T+A, intramedullary nail to the right tibia, ORIF right posterior malleolus ankle fracture, I&D right open tibial fracture. Psychiatric History: Anxiety, Depression Lives: Alone Smoking Status: Current every day smoker - Ongoing 2 pack/day cigarette tobacco usage. Tobacco Use: Cigarettes Alcohol: Heavy - Patient with 12-20 beers daily, had been sober since June 2019 but started drinking again approximately 2 weeks prior to current presentation. Drugs: None - *Family History Maternal History Items: - - Patient notes a maternal family history of hypertension, heart disease. Paternal History Items: - - Patient notes a paternal family history of hypertension, heart disease and diabetes. Review of Systems Constitutional: Reports: Anorexia, Malaise, Weakness, Fatigue. Denies: Chills, Fever, Weight Change HEENT: Denies: Head Aches, Sinus Congestion, Sinus Drainage Cardiovascular: Denies: Chest Pain, Palpitations Respiratory: Reports: Cough, Wheezing. Denies: Shortness of Breath, Shortness of breath at rest, Shortness of breath upon exertion, Sputum production Gastrointestinal: Denies: Abdominal Pain, Nausea, Vomiting Genitourinary: Denies: Dysuria Musculoskeletal: Reports: Joint Pain, Joint stiffness, Joint swelling, Joint Te nderness, Leg Pain Skin: Denies: Rash, Wounds Neurological: Denies: Numbness, Tingling, Focal weakness Psychiatric: Reports: Anxiety, Depression. Denies: Homicidal Ideations, Suicidal Ideations Hematologic/ Lymphatic: Denies: Easy Bruising, Easy Bleeding VTE Information - Inpt Only VTE Present on Admission: No VTE Mechan Device Prophylaxis: None VTE Pharm Prophylaxis ordered?: No Reason prophylaxis not ordered:: Treatment Not Indicated Patient Problems: Active and Suspected Problems COPD (chronic obstructive pulmonary disease) (Suspected) Subjective: Patient seated upright in the ED bed, fatigued but mildly agitated, tremors evident. Objective: Physical Examination: General: awake, alert, oriented x 3 and cooperative, seated upright in the ED bed, fatigued but mildly anxious and mildly agitated, tremors evident. Skin: normal color, turgor, no icterus, cyanosis, wheeled walker next to him at the ED bedside, healed surgical incisions from 06/2019 surgery. HEENT: AT/NC, EOMI, PERRLA, moderately dry MM, no carotid bruits or JVD noted. Lungs: CTA bilaterally, moderate effort, moderate decrease BL bases, no rales, ronchi or wheezing. Heart: Tachycardic with regular rhythm; no gallop, rub audible. Abdomen: soft, NTTP, ND, normal BS, mild HM. Extremities: no cyanosis, clubbing, scars to the right lower extremity following his remote trauma. Neurological: patient awake, alert, oriented x 3; cognitive function suspect near baseline intact; pupils equally reactive to light and accomodation; cranial nerves II-XII grossly normal, moving all extremities, tremor evident, strength moderately globally decreased secondary to underlying comorbidities and acute presentation. Psychiatric: affect appears fatigued, mildly agitated, no acute evidence of depressive or anxiety feelings. - Physical Exam Vitals/I&O's: Vital Signs Temp Pulse Resp BP Pulse Ox 99.1 F 114 H 18 153/104 H 97 12/09/19 21:13 12/09/19 21:13 12/09/19 21:13 12/09/19 21:13 12/09/19 21:13 Oxygen Delivery Method Room Air Weight: 170 lb 6.677 oz Body Mass Index (BMI) 23.8 Intake and Output for Last 24 Hours 12/07/19 12/08/1920 23:59 23:59 23:59 Intake Total 1000 / 1000 Balance 1000 / 1000 Laboratory Results 12/09/19 18:45: WBC 11.4 H, RBC 5.01, Hgb 15.3, Hct 44.7, MCV 89.2, MCH 30.5, MCHC 34.2, RDW Std Deviation 43.8, RDW Coeff of Wen 13.5, Plt Count 259, MPV 9.7, Immature Gran % (Auto) 0.400, Neut % (Auto) 58.4, Lymph % (Auto) 26.3, Dyer % (Auto) 12.4 H, Eos % (Auto) 2.1, Baso % (Auto) 0.4, Absolute Neuts (auto) 6.7, Absolute Lymphs (auto) 2.99, Nucleated RBC % 0 12/09/19 18:45: Sodium 123 L, Potassium 3.7, Chloride 88 L, Carbon Dioxide 25.0, Anion Gap 10, BUN 4 L, Creatinine 0.61 L, Estim Creat Clear Calc 145.73, Est GFR (MDRD) Af Amer 176, Est GFR (MDRD) Non-Af 146, BUN/Creatinine Ratio 6.5 L, Glucose 95, Calcium 8.7, Total Bilirubin 0.30, AST 63 H, ALT 67 H, Alkaline Phosphatase 119 H, Total Protein 8.0, Albumin 3.7, Globulin 4.3 H, Albumin/Globulin Ratio 0.9 12/09/19 18:45: Ethyl Alcohol 132.0 12/09/19 18:45: Phosphorus 3.1, Magnesium 2.0 12/09/19 19:20: Urine Opiates Screen NEGATIVE, Urine Methadone Screen NEGATIVE, Ur Barbiturates Screen NEGATIVE, Ur Phencyclidine Scrn NEGATIVE, Ur Amphetamines Screen NEGATIVE, U Methamphetamin-MDMA NEGATIVE, U Benzodiazepines Scrn NEGATIVE, Urine Cocaine Screen NEGATIVE, U Cannabinoids Screen POSITIVE H, Ur Drug Screen Comment Current Medications Acetaminophen (Tylenol) 500 mg PO Q4H PRN PRN PRN Reason: Temp > 100.4 F Al Hydroxide/Mg Hydroxide (Mylanta Ii) 30 ml PO Q6H PRN PRN PRN Reason: dyspesia Albuterol Sulfate (Ventolin Aerosols) 2.5 mg INHALATION Q2H PRN PRN PRN Reason: Dyspnea, wheezing Amlodipine Besylate (Norvasc) 10 mg PO DAILY [facility]) [facility] Bisacodyl (Dulcolax) 10 mg RECTAL DAILY PRN PRN Reason: Constipation Dicyclomine HCl (Bentyl) 20 mg PO Q6H PRN PRN PRN Reason: abdominal discomfort Folic Acid (Folic Acid) 1 mg PO DAILY@0800 [facility] Gabapentin (Neurontin) 300 mg PO Q8H PRN PRN PRN Reason: moderate to severe anxiety Hydroxyzine Pamoate (Vistaril Pamoate Capsule) 50 mg PO Q4H PRN PRN PRN Reason: mild anxiety Lactated Ringer's () 1,000 mls @ 125 mls/hr IV .Q8H [facility] Stop: 12/10/19 05:16 Last Admin: 12/09/19 21:48 Dose: 125 mls/hr Documented by: Ibuprofen (Motrin) 600 mg PO Q8H PRN PRN PRN Reason: Pain Score 1-10 Last Admin: 12/09/19 21:49 Dose: 600 mg Documented by: Loperamide HCl (Imodium) 2 mg PO Q4H PRN PRN PRN Reason: LOOSE STOOLS Losartan Potassium (Cozaar) 50 mg PO DAILY [facility] Multivitamins ([facility]itamin) [facility] Nicotine (Nicoderm Cq (Pbkc)) 21 mg TRANSDERM. DAILY [facility] Last Admin: 12/09/19 21:48 Dose: 21 mg Documented by: Nicotine Polacrilex (Rugby Nicotine (Bkc)) 2 mg PO Q2H PRN PRN PRN Reason: Nicotine Craving Ondansetron HCl (Zofran) 8 mg PO Q8H PRN PRN PRN Reason: NAUSEA Pantoprazole Sodium (Protonix) 40 mg PO DAILY [facility] Phenobarbital (Phenobarbital) 97.2 mg PO Q4H [facility]; Taper Stop: 12/14/19 05:29 Last Admin: 12/09/19 21:49 Dose: 97.2 mg Documented by: Senna (Senokot) 2 tablet PO QHS PRN PRN PRN Reason: Constipation Sodium Chloride () 10 - 40 ml IV UD PRN PRN Reason: SALINE FLUSH Thiamine HCl ([facility]itamin B1) [facility] Trazodone HCl (Desyrel) 100 mg PO QHS PRN PRN PRN Reason: INSOMNIA Assessment/Plan All Active Problems Alcohol withdrawal (Acute) Alcoholism (Acute) Angioedema of lips (Acute) The patient is a 54 y/o M w/ PMHx: GERD, Heavy Tobacco use, Suspected Chronic COPD, HTN, Chronic back pain w/ radiculopathy, Cannabis use, EtOH use , Chronic Hyponatremia, Anxiety and Depression who presents to the [facility] ED on 12/09/19 as both he and his significant started drinking again over the last 2 weeks, progressively increasing his consumption noting that he was up to ~ 20 beers daily with self attempted decrease with onset acute EtOH withdrawal. 1. Acute EtOH Withdrawal: Will admit to medical surgical floor, routine labs obtained in the ED upon presentation. Given interest in sobriety, will initiate and continue on protocol with taper course of Phenobarbital, scheduled gabapentin for seizure prophylaxis, as needed Catapres, Bentyl, Vistaril, IV fluids, IV antiemetics, Tylenol as needed for pain. Will consult Case management for assistance for transition to next level of rehabilitation care. Mag, phos pending. Maintain on CIWA protocol concurrently. 2. Hyponatremia, acute on chronic: Admission sodium 123, most recently noted in system 129, has been similar prior, likely secondary to beer potomania with recent resumption of significant beer intake as well as suspected poor intake, continue to judiciously hydrate and repeat CMP in a.m. patient previously seen by nephrology, Dr. Adame who recommended continued salt tablets 1 g 3 times daily at home at that time. 3. Chronic LFT elevations: Admission AST/ALT 63/67, alk phos 119, similar to prior initial presentations, judiciously hydrating, repeat CMP in a.m. 4. Hypertension: Continue home regimen including Norvasc, losartan. 5. Tobacco Abuse: Encouraged cessation, inpatient consultation per RT, NR if desired. 6. Hx intracranial hemorrhage (cerebral hemorrhage): Patient with history of fa ll 04/14/[address] head notable for right posterior brainstem hyperdensity concerning for hemorrhage which was transferred to [facility] where patient was maintained in the ICU with neurosurgery consultation and close monitoring with no surgical intervention per patient report. 7. Hx Chronic macrocytic anemia: Admission hemoglobin 15.3, improved from prior admissions, plan continuation supplementation. 8. GERD: Maintain on famotidine. 9. DVT prophylaxis: Low risk, encourage ambulation. Inpatient E&M: 97817 Init Hosp L3
[2019-12-09 21:42] LABS: Phosphorus 3.1 mg/dL (2.5-4.9)
[2019-12-09] MEDS: Lactated Ringers 1,000 ML 125 ML IV (21:48)
[2019-12-09] MEDS: Phenobarbital 32.4 MG Tablet 64.8 MG PO (21:49)
[2019-12-09] MEDS: Ibuprofen 600 MG Tablet PO (21:49)
[2019-12-10] VITALS (7 sets, daily range): BP systolic 120–145; BP diastolic 76–94; PULSE 88–95; RESP 18–20; TEMP 36.1–37.1; O2SAT 94–97
[2019-12-10] MEDS: Phenobarbital 32.4 MG Tablet 64.8 MG PO ×6 (01:21→20:40)
[2019-12-10] MEDS: 0.9% Saline Lock 10 ML Syringe IV (06:19)
[2019-12-10 06:56] LABS: Absolute Lymphocyte Count 2.55 X10^3/uL (0.83-4.51); Absolute Neutrophil Count 2.6 X10^3/uL (2.0-7.7); Basophil# 0.05 X10^3/uL; Basophil% 0.8 % (0-1); Eosinophil# 0.38 X10^3/uL; Eosinophils% 5.9 % (0-5); Hemoglobin 13.4 g/dL (13.0-16.5); Lymphocyte # 2.55 X10^3/ul (4.0); Lymphocyte % 39.5 % (19-41); Mean Corp Hgb Conc 33.5 g/dL (32-36); Mean Corpuscular Hgb 30.2 pg (27.0-32.0); Mean Corpuscular Volume 90.3 fL (80-94); Mean Platelet Vol. 10.3 fl (6.2-12.0); Monocyte# 0.89 X10^3/uL; Monocyte% 13.8 % (0-10); NRBC Flagged by Analyzer 0 % (0-5); Neutrophil # 2.57 X10^3/uL (2.7-7.7); Neutrophil % 39.7 % (47-70); Platelet Count 211 K/mm3 (150-450); RBC Distribution Width CV 13.5 % (11.6-14.6); Red Blood Count 4.43 M/mm3 (4.6-6.2); White Blood Count 6.5 K/mm3 (4.4-11.0)
--- NOTE | 2019-12-10 07:25 | PN_ITS ---
Patient Problems: Active and Suspected Problems COPD (chronic obstructive pulmonary disease) (Suspected) Reason for Visit: Alcohol dependence Subjective: Patient is a 54-year-old gentleman with past medical history significant for chronic alcohol use presented to the emergency department wanting to detox Objective: GENERAL: cooperative HEENT: Atraumatic; EYES; Anicteric, Normal Conjunctiva NECK; supple, normal thyroid, RESPIRATORY: Diminished to auscultation CARDIOVASCULAR: Regular S1 S2, GI: soft, normoactive bowel sounds, : No Renal angle tenderness; EXTREMITIES: No edema, no clubbing, MUSCULOSKELETAL: no muscle waisting NEURO: Awake; no lateralizing signs. SKIN: No Rash PSYCH; Flat affect Vitals/I&O's: Vital Signs Temp Pulse Resp BP Pulse Ox 97 F L 92 18 145/94 H 95 12/10/19 05:55 12/10/19 05:55 12/10/19 05:55 12/10/19 05:55 12/10/19 05:55 Oxygen Delivery Method Room Air Weight: 77.3 kg Body Mass Index (BMI) 23.8 Intake and Output for Last 24 Hours 12/08/19 12/09/19 12/10/19 23:59 23:59 23:59 Intake Total 1400 / 1400 1240 / 1240 Balance 1400 / 1400 1240 / 1240 Laboratory Results 12/09/19 18:45: WBC 11.4 H, RBC 5.01, Hgb 15.3, Hct 44.7, MCV 89.2, MCH 30.5, MCHC 34.2, RDW Std Deviation 43.8, RDW Coeff of Wen 13.5, Plt Count 259, MPV 9.7, Immature Gran % (Auto) 0.400, Neut % (Auto) 58.4, Lymph % (Auto) 26.3, Polk % (Auto) 12.4 H, Eos % (Auto) 2.1, Baso % (Auto) 0.4, Absolute Neuts (auto) 6.7, Absolute Lymphs (auto) 2.99, Nucleated RBC % 0 12/09/19 18:45: Sodium 123 L, Potassium 3.7, Chloride 88 L, Carbon Dioxide 25.0, Anion Gap 10, BUN 4 L, Creatinine 0.61 L, Estim Creat Clear Calc 145.73, Est GFR (MDRD) Af Amer 176, Est GFR (MDRD) Non-Af 146, BUN/Creatinine Ratio 6.5 L, Glucose 95, Calcium 8.7, Total Bilirubin 0.30, AST 63 H, ALT 67 H, Alkaline Phos phatase 119 H, Total Protein 8.0, Albumin 3.7, Globulin 4.3 H, Albumin/Globulin Ratio 0.9 12/09/19 18:45: Ethyl Alcohol 132.0 12/09/19 18:45: Phosphorus 3.1, Magnesium 2.0 12/09/19 19:20: Urine Opiates Screen NEGATIVE, Urine Methadone Screen NEGATIVE, Ur Barbiturates Screen NEGATIVE, Ur Phencyclidine Scrn NEGATIVE, Ur Amphetamines Screen NEGATIVE, U Methamphetamin-MDMA NEGATIVE, U Benzodiazepines Scrn NEGATIVE, Urine Cocaine Screen NEGATIVE, U Cannabinoids Screen POSITIVE H, Ur Drug Screen Comment 12/10/19 05:50: WBC 6.5, RBC 4.43 L, Hgb 13.4, Hct 40.0, MCV 90.3, MCH 30.2, MCHC 33.5, RDW Std Deviation 45.0 H, RDW Coeff of Wen 13.5, Plt Count 211, MPV 10.3, Immature Gran % (Auto) 0.300, Neut % (Auto) 39.7 L, Lymph % (Auto) 39.5, Polk % (Auto) 13.8 H, Eos % (Auto) 5.9 H, Baso % (Auto) 0.8, Absolute Neuts (auto) 2.6, Absolute Lymphs (auto) 2.55, Nucleated RBC % 0 12/10/19 05:50: Sodium Pending, Potassium Pending, Chloride Pending, Carbon Dioxide Pending, Anion Gap Pending, BUN Pending, Creatinine Pending, Est GFR (MDRD) Af Amer Pending, Est GFR (MDRD) Non-Af Pending, BUN/Creatinine Ratio Pending, Glucose Pending, Calcium Pending, Total Bilirubin Pending, AST Pending, ALT Pending, Alkaline Phosphatase Pending, Total Protein Pending, Albumin Pending Current Medications Acetaminophen (Tylenol) 500 mg PO Q4H PRN PRN PRN Reason: Temp > 100.4 F Al Hydroxide/Mg Hydroxide (Mylanta Ii) 30 ml PO Q6H PRN PRN PRN Reason: dyspesia Albuterol Sulfate (Ventolin Aerosols) 2.5 mg INHALATION Q2H PRN PRN PRN Reason: Dyspnea, wheezing Amlodipine Besylate (Norvasc) 10 mg PO DAILY [facility] Aspirin ([facility]in, Baby) [facility] Bisacodyl (Dulcolax) 10 mg RECTAL DAILY PRN PRN Reason: Constipation Dicyclomine HCl (Bentyl) 20 mg PO Q6H PRN PRN PRN Reason: abdominal discomfort Famotidine (Pepcid) 20 mg PO BID [facility] Folic Acid (Folic Acid) 1 mg PO DAILY@0800 [facility] Gabapentin (Neurontin) 300 mg PO Q8H PRN PRN PRN Reason: moderate to severe anxiety Hydroxyzine Pamoate (Vistaril Pamoate Capsule) 50 mg PO Q4H PRN PRN PRN Reason: mild anxiety Ibuprofen (Motrin) 600 mg PO Q8H PRN PRN PRN Reason: Pain Score 1-10 Last Admin: 12/09/19 21:49 Dose: 600 mg Documented by: Loperamide HCl (Imodium) 2 mg PO Q4H PRN PRN PRN Reason: LOOSE STOOLS Losartan Potassium (Cozaar) 50 mg PO DAILY [facility] Multivitamins (Multivitamin) [facility] Nicotine (Nicoderm Cq (Pbkc)) 21 mg TRANSDERM. DAILY [facility] Last Admin: 12/09/19 21:48 Dose: 21 mg Documented by: Nicotine Polacrilex (Rugby Nicotine (Bkc)) 2 mg PO Q2H PRN PRN PRN Reason: Nicotine Craving Ondansetron HCl (Zofran) 8 mg PO Q8H PRN PRN PRN Reason: NAUSEA Pantoprazole Sodium (Protonix) 40 mg PO DAILY [facility] Phenobarbital (Phenobarbital) 97.2 mg PO Q4H [facility]; Taper Stop: 12/14/19 05:29 Last Admin: 12/10/19 06:00 Dose: 97.2 mg Documented by: Senna (Senokot) 2 tablet PO QHS PRN PRN PRN Reason: Constipation Sodium Chloride () 10 - 40 ml IV UD PRN PRN Reason: SALINE FLUSH Last Admin: 12/10/19 06:19 Dose: 10 ml Documented by: Thiamine HCl (Vitamin B1) [facility] Trazodone HCl (Desyrel) 100 mg PO QHS PRN PRN PRN Reason: INSOMNIA STROKE Vital Signs/Narrative: Vital Signs Temp Pulse Resp BP Pulse Ox 12/10/19 05:55 97 F L 92 18 145/94 H 95 12/10/19 05:37 20 H 94 Medical Necessity - Tobacco Use Smoking Status: Current every day smoker Tobacco Use: Cigarettes Assessment/Plan All Active Problems Alcohol withdrawal (Acute) Alcoholism (Acute) Angioedema of lips (Acute) Patient is a 54-year-old gentleman with past medical history significant for chronic alcohol use presented to the emergency department wanting to detox . Acute alcohol withdrawal ?Patient has been admitted to regular nursing floor being managed with phenobarb taper for medical stabilization 2. Acute on chronic hyponatremia ?Secondary to beer put to elan. In addition sodium tablet 1 g 3 times daily 3. Hypertension - Blood pressure controlled, home medications continued with dose adjustment as needed 4. Mildly elevated liver enzymes ?Secondary to chronic alcohol use 5. History of traumatic intracranial hemorrhage ?Managed conservatively 6. Tobacco dependence - Counseled on cessation, offered nicotine patch for tobacco cravings 7. DVT prophylaxis ?Low risk did encourage early ambulation Inpatient E&M: 89046 Subs Hosp L2
[2019-12-10 07:31] LABS: ALB/GLOB Ratio 0.8 RATIO (0.9-2.4); AST(SGOT) 55 U/L (15-37); Alanine Aminotransfer ALT/SGPT 52 U/L (16-61); Albumin, Serum 2.8 g/dL (3.2-5.0); Alkaline Phosphatase 94 U/L (45-117); Anion Gap 8 (5-15); BUN 6 mg/dL (7-18); BUN/Creat Ratio 11.1 RATIO (10-20); Calcium,Total 8.2 mg/dL (8.5-10.1); Chloride 99 mmol/L (98-107); Creatinine, Serum 0.54 mg/dL (0.70-1.30); EST Glomerular Filtration Rate 167 mL/min (>60); Est Glom Filt Rate - Afr Amer 203 mL/min (>60); Estimated Creatinine Clearance 164.62 ml/min; Globulin 3.4 g/dL (2.2-4.2); Glucose 88 mg/dL (74-106); Potassium 4.1 mmol/L (3.5-5.1); Protein, Total 6.2 g/dL (6.4-8.2); Sodium Level 131 mmol/L (136-145)
[2019-12-10] MEDS: Aspirin 81 MG TAB.CHEW PO (10:26)
[2019-12-10] MEDS: Thiamine Hydrochloride 100 MG Tablet PO (10:26)
[2019-12-10] MEDS: Multivitamins,Therapeutic Tablet 1 TABLET PO (10:26)
[2019-12-10] MEDS: Folic Acid 1 MG Tablet PO (10:26)
[2019-12-10] MEDS: Pantoprazole Sodium 40 MG Tablet PO (10:27)
[2019-12-10] MEDS: Losartan Potassium 50 MG Tablet PO (10:27)
[2019-12-10] MEDS: amLODIPine 10 MG Tablet PO (10:27)
--- NOTE | 2019-12-10 11:42 | ADDICTION ---
This copywriter met with patient in his room to conduct ASAM, MSE, and AUDIT assessments and to begin discussing d/c planning. Patient refused residential recommendation but was willing to engage in individual counseling. This copywriter [facility]. He is scheduled for an appointment on 12/20/2019 and is amiable to this appointment. He stated that he can find transportation upon d/c from [facility].
[2019-12-10] MEDS: Acetaminophen 500 MG Tablet PO (14:35)
[2019-12-10] MEDS: Famotidine 20 MG Tablet PO ×2 (14:35→20:47)
[2019-12-10] MEDS: Loperamide 2 MG Capsule PO (17:48)
[2019-12-10] MEDS: Gabapentin 300 MG Capsule PO (17:48)
[2019-12-11] VITALS (7 sets, daily range): BP systolic 111–128; BP diastolic 75–93; PULSE 72–98; RESP 16–18; TEMP 36.8–37.3; O2SAT 94–99
[2019-12-11] MEDS: Phenobarbital 32.4 MG Tablet 64.8 MG PO ×6 (02:15→21:26)
--- NOTE | 2019-12-11 07:35 | PCM.PN.HOSP ---
Patient Problems: Active and Suspected Problems COPD (chronic obstructive pulmonary disease) (Suspected) Reason for Visit: Acute alcohol withdrawal Subjective: Day #2 of admission following acute alcohol intoxication with subsequent withdrawal Objective: GENERAL: cooperative HEENT: Atraumatic; EYES; Anicteric, Normal Conjunctiva NECK; supple, normal thyroid, RESPIRATORY: Diminished to auscultation CARDIOVASCULAR: Regular S1 S2, GI: soft, normoactive bowel sounds, : No Renal angle tenderness; EXTREMITIES: No edema, no clubbing, MUSCULOSKELETAL: no muscle waisting NEURO: Awake; no lateralizing signs. SKIN: No Rash PSYCH; Flat affect Vitals/I&O's: Vital Signs Temp Pulse Resp BP Pulse Ox 98.3 F 85 16 122/80 H 95 12/11/19 05:40 12/11/19 05:40 12/11/19 05:40 12/11/19 05:40 12/11/19 07:17 Oxygen Delivery Method Room Air Weight: 77.3 kg Body Mass Index (BMI) 23.8 Intake and Output for Last 24 Hours 12/09/19 12/10/19 12/11/19 23:59 23:59 23:59 Intake Total 1400 / 1400 1240 / 1240 Balance 1400 / 1400 1240 / 1240 Current Medications Acetaminophen (Tylenol) 500 mg PO Q4H PRN PRN PRN Reason: Temp > 100.4 F Last Admin: 12/10/19 14:35 Dose: 500 mg Documented by: Al Hydroxide/Mg Hydroxide (Mylanta Ii) 30 ml PO Q6H PRN PRN PRN Reason: dyspesia Albuterol Sulfate (Ventolin Aerosols) 2.5 mg INHALATION Q2H PRN PRN PRN Reason: Dyspnea, wheezing Amlodipine Besylate (Norvasc) 10 mg PO DAILY [facility] Last Admin: 12/10/19 10:27 Dose: 10 mg Documented by: [facility]) [facility] Last Admin: 12/10/19 10:26 Dose: 81 mg Documented by: Bisacodyl (Dulcolax) 10 mg RECTAL DAILY PRN PRN Reason: Constipation Dicyclomine HCl (Bentyl) 20 mg PO Q6H PRN PRN PRN Reason: abdominal discomfort Famotidine (Pepcid) 20 mg PO BID [facility] Last Admin: 12/10/19 20:47 Dose: 20 mg Documented by: Folic Acid (Folic Acid) 1 mg PO DAILY@0800 [facility] Last Admin: 12/10/19 10:26 Dose: 1 mg Documented by: Gabapentin (Neurontin) 300 mg PO Q8H PRN PRN PRN Reason: moderate to severe anxiety Last Admin: 12/10/19 17:48 Dose: 300 mg Documented by: Hydroxyzine Pamoate (Vistaril Pamoate Capsule) 50 mg PO Q4H PRN PRN PRN Reason: mild anxiety Ibuprofen (Motrin) 600 mg PO Q8H PRN PRN PRN Reason: Pain Score 1-10 Last Admin: 12/09/19 21:49 Dose: 600 mg Documented by: Loperamide HCl (Imodium) 2 mg PO Q4H PRN PRN PRN Reason: LOOSE STOOLS Last Admin: 12/10/19 17:48 Dose: 2 mg Documented by: Losartan Potassium (Cozaar) 50 mg PO DAILY [facility] Last Admin: 12/10/19 10:27 Dose: 50 mg Documented by: Multivit[facility] ([facility]amin) [facility] Last Admin: 12/10/19 10:26 Dose: 1 tablet Documented by: Nicotine (Nicoderm Cq (Pbkc)) 21 mg TRANSDERM. DAILY [facility] Last Admin: 12/10/19 10:27 Dose: 21 mg Documented by: Nicotine Polacrilex (Rugby Nicotine (Bkc)) 2 mg PO Q2H PRN PRN PRN Reason: Nicotine Craving Ondansetron HCl (Zofran) 8 mg PO Q8H PRN PRN PRN Reason: NAUSEA Pantoprazole Sodium (Protonix) 40 mg PO DAILY [facility] Last Admin: 12/10/19 10:27 Dose: 40 mg Documented by: Phenobarbital (Phenobarbital) 64.8 mg PO Q4H [facility]; Taper Stop: 12/14/19 05:29 Last Admin: 12/11/19 05:42 Dose: 64.8 mg Documented by: Senna (Senokot) 2 tablet PO QHS PRN PRN PRN Reason: Constipation Sodium Chloride () 10 - 40 ml IV UD PRN PRN Reason: SALINE FLUSH Last Admin: 12/10/19 06:19 Dose: 10 ml Documented by: Thiamine HCl (Vitamin B1) [facility] Last Admin: 12/10/19 10:26 Dose: 100 mg Documented by: Trazodone HCl (Desyrel) 100 mg PO QHS PRN PRN PRN Reason: INSOMNIA STROKE Vital Signs/Narrative: Vital Signs Temp Pulse Resp BP Pulse Ox 12/11/19 07:17 95 12/11/19 05:40 98.3 F 85 16 122/80 H 98 Medical Necessity - Tobacco Use Smoking Status: Current every day smoker Tobacco Use: Cigarettes Assessment/Plan All Active Problems Alcohol withdrawal (Acute) Alcoholism (Acute) Angioedema of lips (Acute) Patient is a 54-year-old gentleman with past medical history significant for chronic alcohol use presented to the emergency department wanting to detox 1. Acute alcohol withdrawal ?Patient has been admitted to regular nursing floor being managed with phenobarb taper for medical stabilization -12/11/2019. Patient has tolerated phenobarb well so far 2. Acute on chronic hyponatremia ?Secondary to beer put to elan. In addition sodium tablet 1 g 3 times daily -12/11/2019 repeat BMP ordered for 12/12/2019 3. Hypertension - Blood pressure controlled, home medications continued with dose adjustment as needed 4. Mildly elevated liver enzymes ?Secondary to chronic alcohol use 5. History of traumatic intracranial hemorrhage ?Managed conservatively 6. Tobacco dependence - Counseled on cessation, offered nicotine patch for tobacco cravings 7. DVT prophylaxis ?Low risk did encourage early ambulation Inpatient E&M: 44383 Subs Hosp L2
[2019-12-11] MEDS: amLODIPine 10 MG Tablet PO (09:00)
[2019-12-11] MEDS: Thiamine Hydrochloride 100 MG Tablet PO (09:00)
[2019-12-11] MEDS: Aspirin 81 MG TAB.CHEW PO (09:00)
[2019-12-11] MEDS: Pantoprazole Sodium 40 MG Tablet PO (09:00)
[2019-12-11] MEDS: Folic Acid 1 MG Tablet PO (09:00)
[2019-12-11] MEDS: Famotidine 20 MG Tablet PO ×2 (09:00→21:26)
[2019-12-11] MEDS: Losartan Potassium 50 MG Tablet PO (09:00)
[2019-12-11] MEDS: Multivitamins,Therapeutic Tablet 1 TABLET PO (09:00)
[2019-12-11] MEDS: Ibuprofen 600 MG Tablet PO (13:11)
[2019-12-11] MEDS: Sodium Chloride 1 GM Tablet PO ×2 (13:12→21:26)
[2019-12-11] MEDS: 0.9% Saline Lock 10 ML Syringe IV (13:12)
[2019-12-11] MEDS: hydrOXYzine PAM 25 MG Capsule 50 MG PO (13:12)
[2019-12-11] MEDS: Gabapentin 300 MG Capsule PO (16:40)
[2019-12-11] MEDS: Ondansetron 8 MG Tablet PO (16:40)
[2019-12-11] MEDS: proMETHazine 25 MG/ML Syringe IM (17:01)
--- NOTE | 2019-12-11 18:07 | NURSING ---
pt upset that nursing would not warm up meal for him. told pt that i would warm it up or order new tray for him. he stated that warming up the tray would be fine.
[2019-12-11] MEDS: Senna Tablet 2 TABLET PO (21:25)
[2019-12-12 02:11] VITALS: BP 117/95; PULSE 94; RESP 18; TEMP 36.8; O2SAT 97
[2019-12-12] MEDS: Phenobarbital 32.4 MG Tablet 64.8 MG PO ×3 (02:16→10:57)
[2019-12-12] MEDS: Sodium Chloride 1 GM Tablet PO (06:22)
[2019-12-12] MEDS: Ibuprofen 600 MG Tablet PO (06:26)
[2019-12-12 06:47] LABS: Anion Gap 6 (5-15); BUN 8 mg/dL (7-18); BUN/Creat Ratio 10.6 RATIO (10-20); Calcium,Total 8.7 mg/dL (8.5-10.1); Chloride 101 mmol/L (98-107); Creatinine, Serum 0.75 mg/dL (0.70-1.30); EST Glomerular Filtration Rate 114 mL/min (>60); Est Glom Filt Rate - Afr Amer 138 mL/min (>60); Estimated Creatinine Clearance 118.53 ml/min; Glucose 97 mg/dL (74-106); Potassium 4.2 mmol/L (3.5-5.1); Sodium Level 134 mmol/L (136-145)
--- NOTE | 2019-12-12 07:13 | PN_ITS ---
Patient Problems: Active and Suspected Problems COPD (chronic obstructive pulmonary disease) (Suspected) Reason for Visit: Acute alcohol withdrawal Subjective: Patient seen symptoms stabilized. Patient requested to be discharged home. He has an appointment with 180 next week. Objective: GENERAL: cooperative HEENT: Atraumatic; EYES; Anicteric, Normal Conjunctiva NECK; supple, normal thyroid, RESPIRATORY: Diminished to auscultation CARDIOVASCULAR: Regular S1 S2, GI: soft, normoactive bowel sounds, : No Renal angle tenderness; EXTREMITIES: No edema, no clubbing, MUSCULOSKELETAL: no muscle waisting NEURO: Awake; no lateralizing signs. SKIN: No Rash PSYCH; Flat affect Vitals/I&O's: Vital Signs Temp Pulse Resp BP Pulse Ox 98.2 F 94 18 117/95 H 97 12/12/19 02:11 12/12/19 02:11 12/12/19 02:11 12/12/19 02:11 12/12/19 02:11 Oxygen Delivery Method Room Air Weight: 77.3 kg Body Mass Index (BMI) 23.8 Intake and Output for Last 24 Hours 12/10/19 12/11/19 12/12/19 23:59 23:59 23:59 Intake Total 1240 / 1240 800 / 800 Balance 1240 / 1240 800 / 800 Laboratory Results 12/12/19 05:24: Sodium 134 L, Potassium 4.2, Chloride 101, Carbon Dioxide 27.0, Anion Gap 6, BUN 8, Creatinine 0.75, Estim Creat Clear Calc 118.53, Est GFR (MDRD) Af Amer 138, Est GFR (MDRD) Non-Af 114, BUN/Creatinine Ratio 10.6, Glucose 97, Calcium 8.7, Magnesium 2.0 Current Medications Acetaminophen (Tylenol) 500 mg PO Q4H PRN PRN PRN Reason: Temp > 100.4 F Last Admin: 12/10/19 14:35 Dose: 500 mg Documented by: Al Hydroxide/Mg Hydroxide (Mylanta Ii) 30 ml PO Q6H PRN PRN PRN Reason: dyspesia Albuterol Sulfate (Ventolin Aerosols) 2.5 mg INHALATION Q2H PRN PRN PRN Reason: Dyspnea, wheezing Amlodipine Besylate (Norvasc) 10 mg PO DAILY [facility] Last Admin: 12/11/19 09:00 Dose: 10 mg Documented by: Aspir[facility] ([facility], Baby) [facility] Last Admin: 12/11/19 09:00 Dose: 81 mg Documented by: Bisacodyl (Dulcolax) 10 mg RECTAL DAILY PRN PRN Reason: Constipation Dicyclomine HCl (Bentyl) 20 mg PO Q6H PRN PRN PRN Reason: abdominal discomfort Famotidine (Pepcid) 20 mg PO BID [facility] Last Admin: 12/11/19 21:26 Dose: 20 mg Documented by: Folic Acid (Folic Acid) 1 mg PO DAILY@0800 [facility] Last Admin: 12/11/19 09:00 Dose: 1 mg Documented by: Gabapentin (Neurontin) 300 mg PO Q8H PRN PRN PRN Reason: moderate to severe anxiety Last Admin: 12/11/19 16:40 Dose: 300 mg Documented by: Hydroxyzine Pamoate (Vistaril Pamoate Capsule) 50 mg PO Q4H PRN PRN PRN Reason: mild anxiety Last Admin: 12/11/19 13:12 Dose: 50 mg Documented by: Ibuprofen (Motrin) 600 mg PO Q8H PRN PRN PRN Reason: Pain Score 1-10 Last Admin: 12/12/19 06:26 Dose: 600 mg Documented by: Loperamide HCl (Imodium) 2 mg PO Q4H PRN PRN PRN Reason: LOOSE STOOLS Last Admin: 12/10/19 17:48 Dose: 2 mg Documented by: Losartan Potassium (Cozaar) 50 mg PO DAILY [facility] Last Admin: 12/11/19 09:00 Dose: 50 mg Documented by: Multivitamins (Multivitamin) [facility] Last Admin: 12/11/19 09:00 Dose: 1 tablet Documented by: Nicotine (Nicoderm Cq (Pbkc)) 21 mg TRANSDERM. DAILY [facility] Last Admin: 12/11/19 09:00 Dose: 21 mg Documented by: Nicotine Polacrilex (Rugby Nicotine (Bkc)) 2 mg PO Q2H PRN PRN PRN Reason: Nicotine Craving Ondansetron HCl (Zofran) 8 mg PO Q8H PRN PRN PRN Reason: NAUSEA Last Admin: 12/11/19 16:40 Dose: 8 mg Documented by: Pantoprazole Sodium (Protonix) 40 mg PO DAILY [facility] Last Admin: 12/11/19 09:00 Dose: 40 mg Documented by: Phenobarbital (Phenobarbital) 64.8 mg PO Q6H [facility]; Taper Stop: 12/14/19 05:29 Last Admin: 12/12/19 06:22 Dose: 64.8 mg Documented by: Senna (Senokot) 2 tablet PO QHS PRN PRN PRN Reason: Constipation Last Admin: 12/11/19 21:25 Dose: 2 tablet Documented by: Sodium Chloride () 10 - 40 ml IV UD PRN PRN Reason: SALINE FLUSH Last Admin: 12/11/19 13:12 Dose: 10 ml Documented by: Sodium Chloride (Sodium Chloride) 1 gm PO TID [facility] Last Admin: 12/12/19 06:22 Dose: 1 gm Documented by: Thiamine HCl (Vitamin B1) 100 mg PO DAILYCM [facility] Last Admin: 12/11/19 09:00 Dose: 100 mg Documented by: Trazodone HCl (Desyrel) 100 mg PO QHS PRN PRN PRN Reason: INSOMNIA Medical Necessity - Tobacco Use Smoking Status: Current every day smoker Tobacco Use: Cigarettes Assessment/Plan All Active Problems Alcohol withdrawal (Acute) Alcoholism (Acute) Angioedema of lips (Acute) Patient is a 54-year-old gentleman with past medical history significant for chronic alcohol use presented to the emergency department wanting to detox 1. Acute alcohol withdrawal ?Patient has been admitted to regular nursing floor being managed with phenobarb taper for medical stabilization -12/11/2019. Patient has tolerated phenobarb well so far 2. Acute on chronic hyponatremia ?Secondary to beer put to elan. In addition sodium tablet 1 g 3 times daily -12/11/2019 repeat BMP ordered for 12/12/2019 -12/12/2019. Sodium levels up to 134 3. Hypertension - Blood pressure controlled, home medications continued with dose adjustment as needed 4. Mildly elevated liver enzymes ?Secondary to chronic alcohol use 5. History of traumatic intracranial hemorrhage ?Managed conservatively 6. Tobacco dependence - Counseled on cessation, offered nicotine patch for tobacco cravings 7. DVT prophylaxis ?Low risk did encourage early ambulation Inpatient E&M: 24965 [facility] Hosp L2
[2019-12-12 07:16] VITALS: O2SAT 96
--- NOTE | 2019-12-12 09:12 | DS.PCM_ITS ---
Discharge Date and Diagnosis - Problem List Patient Problems: Active and Suspected Problems COPD (chronic obstructive pulmonary disease) (Suspected) Date of Admission: 12/09/19 Date of Discharge: 12/12/19 - Primary Discharge Diagnosis Suspected Problems: Suspected Problems COPD (chronic obstructive pulmonary disease) (Suspected) - Secondary Discharge Diagnosis Chronic Problems: Chronic Problems Open fracture dislocation of ankle joint (Chronic) Chronic hyponatremia (Chronic) Elevated LFTs (Chronic) Alcohol abuse (Chronic) Tobacco use (Chronic) GERD (gastroesophageal reflux disease) (Chronic) Hypertension (Chronic) Hospital Course and Treatment Operations: None Summary of Care Provided: Patient is a 54-year-old gentleman with past medical history significant for chronic alcohol use presented to the emergency department wanting to detox 1. Acute alcohol withdrawal ?Patient has been admitted to regular nursing floor being managed with phenobarb taper for medical stabilization -12/11/2019. Patient has tolerated phenobarb well so far -12/12/2019. Patient was discharged home in stable condition. Has an appointment with 180 early next week. 2. Acute on chronic hyponatremia ?Secondary to beer put to elan. In addition sodium tablet 1 g 3 times daily -12/11/2019 repeat BMP ordered for 12/12/2019 -12/12/2019. Sodium levels up to 134; prescription was written for sodium tablets on discharge 3. Hypertension - Blood pressure controlled, home medications continued with dose adjustment as needed 4. Mildly elevated liver enzymes ?Secondary to chronic alcohol use 5. History of traumatic intracranial hemorrhage ?Managed conservatively 6. Tobacco dependence - Counseled on cessation, offered nicotine patch for tobacco cravings 7. DVT prophylaxis ?Low risk did encourage early ambulation Patient Problems: Active and Suspected Problems COPD (chronic obstructive pulmonary disease) (Suspected) - Physical Exam Vitals/I&O's: Vital Signs Temp Pulse Resp BP Pulse Ox 98.2 F 94 18 117/95 H 96 12/12/19 02:11 12/12/19 02:11 12/12/19 02:11 12/12/19 02:11 12/12/19 07:16 Oxygen Delivery Method Room Air Weight: 77.3 kg Body Mass Index (BMI) 23.8 Intake and Output for Last 24 Hours 12/10/19 12/11/19 12/12/19 23:59 23:59 23:59 Intake Total 1240 / 1240 800 / 800 Balance 1240 / 1240 800 / 800 General: Alert HEENT: Atraumatic Lungs: Normal air movement Cardiovascular: Regular rate, Regular Rhythm Neurological: Neuro grossly intact Psych/Mental Status: Normal Affect Laboratory Results 12/12/19 05:24: Sodium 134 L, Potassium 4.2, Chloride 101, Carbon Dioxide 27.0, Anion Gap 6, BUN 8, Creatinine 0.75, Estim Creat Clear Calc 118.53, Est GFR (MDRD) Af Amer 138, Est GFR (MDRD) Non-Af 114, BUN/Creatinine Ratio 10.6, Glucose 97, Calcium 8.7, Magnesium 2.0 Current Medications Acetaminophen (Tylenol) 500 mg PO Q4H PRN PRN PRN Reason: Temp > 100.4 F Last Admin: 12/10/19 14:35 Dose: 500 mg Documented by: Al Hydroxide/Mg Hydroxide (Mylanta Ii) 30 ml PO Q6H PRN PRN PRN Reason: dyspesia Albuterol Sulfate (Ventolin Aerosols) 2.5 mg INHALATION Q2H PRN PRN PRN Reason: Dyspnea, wheezing Amlodipine Besylate (Norvasc) 10 mg PO DAILY [facility] Last Admin: 12/11/19 09:00 Dose: 10 mg Documented by: [facility], [facility]) [facility] Last Admin: 12/11/19 09:00 Dose: 81 mg Documented by: Bisacodyl (Dulcolax) 10 mg RECTAL DAILY PRN PRN Reason: Constipation Dicyclomine HCl (Bentyl) 20 mg PO Q6H PRN PRN PRN Reason: abdominal discomfort Famotidine (Pepcid) 20 mg PO BID [facility] Last Admin: 12/11/19 21:26 Dose: 20 mg Documented by: Folic Acid (Folic Acid) 1 mg PO DAILY@0800 [facility] Last Admin: 12/11/19 09:00 Dose: 1 mg Documented by: Gabapentin (Neurontin) 300 mg PO Q8H PRN PRN PRN Reason: moderate to severe anxiety Last Admin: 12/11/19 16:40 Dose: 300 mg Documented by: Hydroxyzine Pamoate (Vistaril Pamoate Capsule) 50 mg PO Q4H PRN PRN PRN Reason: mild anxiety Last Admin: 12/11/19 13:12 Dose: 50 mg Documented by: Ibuprofen (Motrin) 600 mg PO Q8H PRN PRN PRN Reason: Pain Score 1-10 Last Admin: 12/12/19 06:26 Dose: 600 mg Documented by: Loperamide HCl (Imodium) 2 mg PO Q4H PRN PRN PRN Reason: LOOSE STOOLS Last Admin: 12/10/19 17:48 Dose: 2 mg Documented by: Losartan Potassium (Cozaar) 50 mg PO DAILY [facility] Last Admin: 12/11/19 09:00 Dose: 50 mg Documented by: Multivit[facility] ([facility]amin) [facility] Last Admin: 12/11/19 09:00 Dose: 1 tablet Documented by: Nicotine (Nicoderm Cq (Pbkc)) 21 mg TRANSDERM. DAILY [facility] Last Admin: 12/11/19 09:00 Dose: 21 mg Documented by: Nicotine Polacrilex (Rugby Nicotine (Bkc)) 2 mg PO Q2H PRN PRN PRN Reason: Nicotine Craving Ondansetron HCl (Zofran) 8 mg PO Q8H PRN PRN PRN Reason: NAUSEA Last Admin: 12/11/19 16:40 Dose: 8 mg Documented by: Pantoprazole Sodium (Protonix) 40 mg PO DAILY [facility] Last Admin: 12/11/19 09:00 Dose: 40 mg Documented by: Phenobarbital (Phenobarbital) 64.8 mg PO Q6H [facility]; Taper Stop: 12/14/19 05:29 Last Admin: 12/12/19 06:22 Dose: 64.8 mg Documented by: Senna (Senokot) 2 tablet PO QHS PRN PRN PRN Reason: Constipation Last Admin: 12/11/19 21:25 Dose: 2 tablet Documented by: Sodium Chloride () 10 - 40 ml IV UD PRN PRN Reason: SALINE FLUSH Last Admin: 12/11/19 13:12 Dose: 10 ml Documented by: Sodium Chloride (Sodium Chloride) 1 gm PO TID [facility] Last Admin: 12/12/19 06:22 Dose: 1 gm Documented by: Thiamine HCl (Vitamin B1) [facility] Last Admin: 12/11/19 09:00 Dose: 100 mg Documented by: Trazodone HCl (Desyrel) 100 mg PO QHS PRN PRN PRN Reason: INSOMNIA Discharge Diet: No Restrictions Discharge Activity: Return to Normal Activity, May not drive while taking narcotic pain medications. Home Medications: Medications to take at Discharge Losartan Potassium 50 mg PO DAILY 08/17/17 Amlodipine [Norvasc] 10 mg PO DAILY 06/13/19 Aspirin [Aspirin, Baby] 81 mg PO DAILY 06/28/19 Pantoprazole Sodium [Protonix] 40 mg PO DAILY 06/28/19 Folic Acid 1 mg PO DAILY@0800 #30 tab 12/12/19 Multivitamins,Therapeutic [Multivitamin] 1 tab PO DAILYCM #30 tab 12/12/19 Sodium Chloride 1 gm PO TID #90 tab 12/12/19 Thiamine Hydrochloride [Vitamin B1] 100 mg PO DAILYCM #30 tab 12/12/19 Following Prescriptions Were Given to Patient: Folic Acid 1 mg PO DAILY@0800 #30 tab Transmission Status: Pending to [employer] #30 Multivitamins,Therapeutic [Multivitamin] 1 tab PO DAILYCM #30 tab Transmission Status: Pending to [employer] #30 Sodium Chloride 1 gm PO TID #90 tab Transmission Status: Pending to [employer] #30 Thiamine Hydrochloride [Vitamin B1] 100 mg PO DAILYCM #30 tab Transmission Status: Pending to [employer] #30 Primary Care Physician: Abdullahi Hope III, MD [Primary Care Provider] - Please follow up with your Primary Care Physician in: 1 to 2 weeks Disposition: Home Minutes spent on discharge:: 35 Patient Condition:: Stable Medical Necessity - Tobacco Use Smoking Status: Current every day smoker Tobacco Use: Cigarettes Meaningful Use Info Meaningful Use Diagnoses (Choose all that apply): None applicable Inpatient E&M: 00887 Disch Hosp
--- NOTE | 2019-12-12 10:28 | DCINST_ITS ---
- Discharge Diagnoses Current Active Problems: Current Active and Chronic Problems Elevated LFTs (Chronic) You will use the following diet at home:: No restrictions Discharge Activity: Return to Normal Activity, May not drive while taking narcotic pain medications. Allergies/Adverse Reactions: Allergies lisinopril Allergy (Verified 12/09/19 17:23) Angioedema aspirin Adverse Reaction (Verified 12/09/19 17:23) HEARTBURN codeine Adverse Reaction (Verified 12/09/19 17:23) NIGHTMARES Medications to take at Discharge Losartan Potassium 50 mg PO DAILY 08/17/17 Amlodipine [Norvasc] 10 mg PO DAILY 06/13/19 Aspirin [Aspirin, Baby] 81 mg PO DAILY 06/28/19 Pantoprazole Sodium [Protonix] 40 mg PO DAILY 06/28/19 Folic Acid 1 mg PO DAILY@0800 #30 tab 12/12/19 Multivitamins,Therapeutic [Multivitamin] 1 tab PO DAILYCM #30 tab 12/12/19 Sodium Chloride 1 gm PO TID #90 tab 12/12/19 Thiamine Hydrochloride [Vitamin B1] 100 mg PO DAILYCM #30 tab 12/12/19 The following prescriptions were given: Folic Acid 1 mg PO DAILY@0800 #30 tab Transmission Status: Received by [employer] [facility]30 Multivitamins,Therapeutic [Multivitamin] 1 tab PO DAILYCM #30 tab Transmission Status: Received by [employer] [facility] Sodium Chloride 1 gm PO TID #90 tab Transmission Status: Received by [employer] [facility] Thiamine Hydrochloride [Vitamin B1] 100 mg PO DAILYCM #30 tab Transmission Status: Received by [employer] [facility] Primary Care Physician: Abdullahi Hope III, MD [Primary Care Provider] - Please follow up with your Primary Care Physician in: 1 to 2 weeks Test Results: Test results from this visit will be discussed in further detail at your follow- up appointment, if applicable. Please Follow Up With: 180 When: NEXT WEEK Proposed Discharge Date: 12/12/19
[2019-12-12 10:29] VITALS: BP 136/98; PULSE 79; RESP 18; TEMP 36.6; O2SAT 99
[2019-12-12] MEDS: Aspirin 81 MG TAB.CHEW PO (10:58)
[2019-12-12] MEDS: Folic Acid 1 MG Tablet PO (10:58)
[2019-12-12] MEDS: Multivitamins,Therapeutic Tablet 1 TABLET PO (10:58)
[2019-12-12] MEDS: Thiamine Hydrochloride 100 MG Tablet PO (10:58)
[2019-12-12] MEDS: Pantoprazole Sodium 40 MG Tablet PO (10:58)
[2019-12-12] MEDS: Losartan Potassium 50 MG Tablet PO (10:59)
[2019-12-12] MEDS: Famotidine 20 MG Tablet PO (10:59)
[2019-12-12] MEDS: amLODIPine 10 MG Tablet PO (10:59)
== END 2019-12-12 11:25 | disposition home or self-care (01) | DRG 775 ==
LOC: ED 18:29 → MS3 21:15
PROVIDERS: Admitting Provider Family Medicine; Emergency Provider Emergency Medicine; PCP Family Medicine; Visit Provider Internal Medicine
DX: F10.239 Alcohol dependence with withdrawal, unspecified (principal); Y90.6 Blood alcohol level of 120-199 mg/100 ml; J44.9 Chronic obstructive pulmonary disease, unspecified; I10 Essential (primary) hypertension; E87.1 Hypo-osmolality and hyponatremia; K21.9 Gastro-esophageal reflux disease without esophagitis; F17.210 Nicotine dependence, cigarettes, uncomplicated; Z79.82 Long term (current) use of aspirin; Z79.899 Other long term (current) drug therapy
CPT/HCPCS: 36415; 80048; 80053; 80307; 80320; 83735; 84100; 85025; 93005; 99251; 99283; 99406; J7120; A4216; G0463; G0480

== ENCOUNTER 2020-09-07 12:33 | Emergency (ER) | payer MEDICAID, SELFPAY ==
[2020-09-07 12:34] VITALS: BP 160/90; PULSE 110; RESP 16; TEMP 36; O2SAT 97; BMI 23.7
--- NOTE | 2020-09-07 12:56 | RAD_ITS ---
STUDY: X-RAY - LEFT WRIST REASON FOR EXAM: Left wrist pain and swelling starting last night, right wrist injury 8 years ago without recent injury. TECHNIQUE: 3 view(s) of the wrist were obtained. COMPARISON: None. FINDINGS: Normal visualized distal radius and ulna. There are marginal osteophytes and joint space narrowing of the radiocarpal articulation. Normal distal radioulnar articulation. 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 Normal carpal articulations. Normal carpometacarpal articulation of the thumb. Normal second through fifth carpometacarpal articulations. Normal visualized metacarpal bones. There is a small ossicle at the distal aspect of the ulnar styloid process. There is a small ossicle at the dorsal aspect of the distal carpal row. 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 Electronically Signed: Jacques Feldman MD at 13:36 EDT Tel , Service support ,
--- NOTE | 2020-09-07 12:56 | EX.ED.UPPERE ---
HPI History of Present Illness Chief Complaint: Upper Extremity Injury Informant: patient Narrative Narrative: Patient is a 54-year-old male who presents to the emergency department for nontraumatic left wrist pain and swelling. Started yesterday. He states that he did injure the wrist multiple years ago after a fall. He never had this evaluated and it is slowly got better. With the past use it has not been bothering him. Yesterday he felt like he had a cramp in his hand and it started to swell today. He denies any trauma or falls. 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 He does not recall ever injuring it and felt fine throughout the day. He otherwise denies any systemic symptoms. No fevers or chills. No chest pain or shortness of breath. No other joints are bothering him. No urinary symptoms. [facility] Medical History (Updated 09/07/20 @ 14:[address] Santino Saldaña DO) GERD (gastroesophageal reflux disease) HTN (hypertension) Home Medications losartan 50 mg PO DAILY 08/17/17 [History Last Taken 12/08/19] amlodipine 10 mg PO DAILY 06/13/19 [History Last Taken 12/08/19] pantoprazole 40 mg PO DAILY 06/28/19 [History Last Taken 12/08/19] multivitamin 1 tab PO DAILYCM #30 tab 12/12/19 [Rx Last Taken Unknown] Allergy/AdvReac Type Severity Reaction Status Date / Time lisinopril Allergy Angioedema Verified 09/07/20 12:36 aspirin AdvReac HEARTBURN Verified 09/07/20 12:36 codeine AdvReac NIGHTMARES Verified 09/07/20 12:36 Social History Smoking Status: Current every day smoker tobacco type: cigarettes ROS ROS ED Constitutional Constitutional ED: Denies chills or fever(s) Eyes Eyes: Denies change in vision ENT ENT ED: Denies epistaxis or rhinorrhea Cardiovascular Cardiovascular: Denies chest pain or palpitations Respiratory/Chest Respiratory/Chest: Denies cough, dyspnea or dyspnea on exertion Gastrointestinal Gastrointestinal: Denies abdominal pain, diarrhea, nausea or vomiting Genitourinary Genitourinary ED: Denies dysuria, hematuria or urinary frequency Musculoskeletal Musculoskeletal: Denies back pain or neck pain Integumentary Denies rash Neurologic Neurologic: Denies dizziness, headache(s) or weakness EXAM Physical Exam Const Vital Signs: 09/07/20 12:34 Temperature 96.8 F L Temperature Source Temporal Pulse Rate 110 H Respiratory Rate 16 Blood Pressure 160/90 H Blood Pressure Mean 113 Pulse Ox 97 Oxygen Delivery Method Room Air Positive well nourished and well developed General Appearance ED: well developed and NAD HEENT Reports normocephalic, head/scalp atraumatic and moist mucous membranes Eyes PERRL and EOMs intact bilaterally Neck supple Chest Wall inspection of chest normal Resp normal respiratory effort Cardio regular rate Extremity Extremity Narrative: Left wrist is mildly swollen. No overlying skin changes. He is diffusely tender to the touch. Otherwise neurovascularly intact. Full range of motion of the wrist. No pain out of proportion. Neuro no sensory deficits noted Sensorium / Orientation: alert Motor Exam: strength 5/5 throughout Psych mental status grossly normal Skin no rashes or lesions noted MDM MDM MDM Narrative Medical decision making narrative: Patient presents to the ED for left wrist pain and swelling that is nontraumatic. Upon arrival to the emerge department he is hypertensive and mildly tachycardic but otherwise normal vital signs. He is in no acute distress. He does have swelling and tenderness but no warmth. Low concern for septic arthritis. He does have good range of motion. Will check x-ray as he does have a previous injury that was never evaluated. Patient's x-ray showed a chronic scaphoid injury there is also avascular necrosis present. These findings were discussed with the patient. He is given hand surgery referral. Unfortunately he will likely have chronic issues given the fact this is now flaring back up from his previous injury. He otherwise is recommended to have symptomatic treatment. Return precautions are reviewed. He understands and is agreeable this plan. All questions were answered. Discharge Plan Triage Chief Complaint: Upper Extremity Injury ED Provider: Santino Saldaña Dx/Rx/DC Orders Clinical Impression: Fracture of scaphoid, Avascular necrosis of scaphoid Instructions: ED Fracture, Wrist, General Prescriptions: No Action losartan 50 MG tablet 50 mg PO DAILY RF: 0 amlodipine 10 MG tablet 10 mg PO DAILY RF: 0 pantoprazole 40 MG tablet 40 mg PO DAILY RF: 0 multivitamin 1 TABLET tablet 1 tab PO DAILYCM Qty: 30 RF: 0 Primary Care Provider: Care Physician,No Primary Referrals: Low Rebolledo MD [STAFF PHYSICIAN] - 3-5 Days Care Physician,No Primary [Primary Care Provider] - Disposition Disposition: Home, Self Care Discharge Date/Time: 09/07/20 14:13
== END 2020-09-07 14:13 | disposition home or self-care (01) ==
PROVIDERS: Emergency Provider Emergency Medicine
DX: S62.002A Unspecified fracture of navicular [scaphoid] bone of left wrist, initial encounter for closed fracture (principal); F17.210 Nicotine dependence, cigarettes, uncomplicated; I10 Essential (primary) hypertension; K21.9 Gastro-esophageal reflux disease without esophagitis; Z79.899 Other long term (current) drug therapy; X58.XXXA Exposure to other specified factors, initial encounter
CPT/HCPCS: 73110; 99283

== ENCOUNTER → 2021-02-12 09:43 | Outpatient (CLI) | payer MEDICAID, SELFPAY | PROVIDERS: PCP Internal Medicine; Visit Provider Physician Assistant Surgical | DX: Z11.52 Encounter for screening for COVID-19 (principal) | CPT/HCPCS: 87635; U0005; U0003 ==

== ENCOUNTER 2021-07-10 06:28 | Day surgery (SDC) | payer MEDICAID, SELFPAY ==
[2021-07-10] MEDS: Lactated Ringers 1,000 ML 15 ML IV (06:45)
[2021-07-10 07:00] VITALS: BP 141/97; PULSE 109; RESP 16; TEMP 37.1; O2SAT 97; BMI 25.4
--- NOTE | 2021-07-10 07:11 | HP.PCM_ITS ---
HPI - General HPI Narrative NICOLE KEITH, is a 55 M who presents for screening colonoscopy. Patient has never had a colonoscopy in the past. He has a family history of polyps only. He has no abdominal pain or blood in his stool. [facility] Medical History Alcohol use Anxiety Arthritis Back pain GERD (gastroesophageal reflux disease) History of pain when walking HTN (hypertension) Hx of fracture of leg Marijuana use Smoker Wears glasses Home Medications ibuprofen 600 mg tablet 600 mg PO Q6H PRN 11/22/20 [History Last Taken Unknown] amlodipine 10 mg tablet 10 mg PO DAILY #90 tab 12/06/20 [Rx Last Taken 07/10/21] losartan 50 mg tablet 50 mg PO DAILY #90 tab 12/06/20 [Rx Last Taken 07/10/21] pantoprazole 40 mg tablet,delayed release 40 mg PO DAILY #90 tab 02/12/21 [Rx Last Taken 07/10/21] [id number] [Advil Allergy Sinus] 1 tab PO Q6H PRN 07/05/21 [History Last Taken Unknown] Allergy/AdvReac Type Severity Reaction Status Date / Time lisinopril Allergy Angioedema Verified 07/10/21 06:52 aspirin AdvReac HEARTBURN Verified 07/10/21 06:52 codeine AdvReac NIGHTMARES Verified 07/10/21 06:52 Family History (Updated 11/22/20 @ 14:04 by Jeanette Shaw) Other CAD (coronary artery disease) Cancer Diabetes Heart disease Kidney disease Myocardial infarction Seizures Surgical History History of tonsillectomy and adenoidectomy Hx of removal of testicle Social History Smoking Status: Current every day smoker tobacco type: cigarettes how long ago did patient quit smokin years quit 2018 alcohol intake: former details: quit 2019 substance use type: does not use Past Medical/Surgical History Planned Operation Planned Operative Procedure/s: CSCOPE OA Previous Hospitalizations/Surgeries HX Hospitalizations: No HX of Surgeries: tonsil, left testicle removal Any Problems With Anesthesia: No You/Your Family Experience Fever (Hyperthermia) With Anes: No Cholinesterase deficiency: No Cardiovascular Hx Chest Pain within Last 2 months: No Hx of Irregular Heartbeat and/or Afib: No Hx Heart Attack: No Hx Congestive Heart Failure: No Hx Rheumatic Fever: No Hx Hypertension: Yes (CONTROLLED WITH MEDS) Hx Internal Defibrillator: No Hx Pacemaker: No Hx Cardiac Catheterization: No Hx Cardiac Surgery/Stents/Etc.: No Hx Stress Test: No Hx Pain in Legs when Walking/Leg Cramps: No Respiratory Chronic Cough: No HX of Shortness of Breath: No Hoarseness: No Hx Chronic Obstructive Pulmonary Disease (COPD): Yes (believes so- but never diagnosed) Hx Asthma: No Hx Emphysema: No Hx Sleep Apnea: No CPAP: No Hx Respiratory Tract Infection/Cold (presently): Yes (ALLERGIES) Do You Snore Loudly (louder than talking or can be heard): No Do You Often Feel Tired/ Fatigued/ Sleepy Dring Daytime?: No Has Anyone Observed You Stop Breathing During Sleep?: No Result (for STOP score): Negative Hx Smoking: Yes Smoking Status: Current every day smoker Gastrointestinal Hx Gastroesophageal Reflux: Yes Controlled With Meds: Yes Hx Gastrointestinal Disorders: No Hx Gastrointestinal Bleed: No Hx Ulcer: No (acid reflux- takes omeprazole) Difficulty Chewing/Swallowing: No Hx Unplanned Weight Loss of 20#: No HX Unplanned Weight Gain of 20#: No Neurological Hx Seizures: No HX Syncope/Blackout Spells/Unconsciousness: No Hx Transient Ischemic Attacks (TIA): No Hx Multiple Sclerosis: No Hx Parkinson's Disease: No Hx Head/Neck Injury: No Hx Headaches: No Hx Back Injury/Pain: Yes (3 FX VERTEBRAE LONG TIME AGO, PINCHED NERVE 2013) Does patient have nerve stimulator: No Blood Disorder Hx Deep Vein Thrombosis: No Hx High Cholesterol: No Hx Hepatitis: No Hx Cirrhosis: No Hx Anemia: No Hx Blood Disorders: No Reproduction : No Genitourinary Hx Renal Disease: No Hx Dialysis: No Musculoskeletal Hx Arthritis: Yes (LT HAND, RT TOE) Hx Rheumatoid Arthritis: No Hx Gout: No Endocrine Hx Diabetes: No Insulin: No Thyroid Disease: No Hx Steroid Therapy: No Psycho/Social Hx Substance Use: Yes (weed) Hx Alcohol Use: Yes (16 beers daily) Hx Anxiety: No Hx Depression: No Mental Illness: No Hx Dementia: No Miscellaneous Hx Cancer: No Recent Exposure to Contagious Disease: No Hx of C-Diff: No Allergies lisinopril Allergy (Verified 07/10/21 06:52) Angioedema aspirin Adverse Reaction (Verified 07/10/21 06:52) HEARTBURN codeine Adverse Reaction (Verified 07/10/21 06:52) NIGHTMARES Maternal: Family History (Updated 11/22/20 @ 14:04 by Jeanette Shaw) Other CAD (coronary artery disease) Cancer Diabetes Heart disease Kidney disease Myocardial infarction Seizures - (Patient notes a maternal family history of hypertension, heart disease.) Paternal: Family History (Updated 11/22/20 @ 14:04 by Jeanette Shaw) Other CAD (coronary artery disease) Cancer Diabetes Heart disease Kidney disease Myocardial infarction Seizures - (Patient notes a paternal family history of hypertension, heart disease and diabetes.) Discharge Is Pt Admitted From a Residential, or a Fpc: No After D/C, Where Do you Plan to Go: Return Home Vital Signs Vital Signs Vital Signs: 07/10/21 07:00 Temperature 98.8 F Temperature Source Temporal Pulse Rate 109 H Respiratory Rate 16 Respiratory Pattern Normal Blood Pressure 141/97 H Blood Pressure Mean 111 Blood Pressure Source Monitor Blood Pressure Position Semi-Fowlers Blood Pressure Location Left Arm Pulse Ox 97 Oxygen Delivery Method Room Air Weight Weight: 167 lb 8.821 oz Body Mass Index (BMI) 25.4 Physical Exam Const alert and oriented x3 Resp normal respiratory effort and normal air movement Cardio regular rate and regular rhythm GI soft to palpation, non-tender and non-distended Assessment & Plan Assessment/Plan (1) Colon cancer screening: PLAN: I explained endoscopy in detail to the patient. I explained the risks including but not limited to stroke or heart attack with anesthesia, perforation of the GI tract, bleeding, infection. I explained that any of these could necessitate further emergency surgery. The patient understands and all questions were answered sufficiently. The patient wishes to proceed with procedure. Smooth Zhang MD Pager: [facility] [address] [place] [address] [place] [id number] Office: Surgery Risks - Colonoscopy Risks Include but are not Limited To: Risks include but are not limited to: Bleeding, perforation requiring further surgery, inability to complete colonoscopy requiring barium enema.
--- NOTE | 2021-07-10 07:30 | COLBX_PTH ---
PATIENT: NICOLE KEITH LOC: EN U#:[id number] AGE/SX: 55/M ROOM: RE07/10/[address]: Dr. Smooth Zhang MD : 1965 BED: DIS: 07/10/2021 SPEC #: [id number] RECD: 07/10/21 16:21 STATUS: HARSH SCOTT #: [id number] LUANA: 07/10/21 07:[address]: Smooth Zhang DEPT: SURGICAL PATHOLOGY RECD BY: Francesco Sanchez ENTERED: 07/11/21 09:29 SP TYPE: COLON BX OTHR DR: Dr. Nichole Grove MD Tissues: Rectum, NOS Procedures: Surgery Specimen Level IV HEADER OPERATION: Colonoscopy ? open access (MAC) PRE-OP DIAGNOSIS: Colon cancer screening TISSUE SUBMITTED: Rectal polyp biopsy MICROSCOPIC DIAGNOSIS Rectal polyp, biopsy: Tubular adenoma. SJ:layla 07/12/2021 MICROSCOPIC DESCRIPTION Slides are reviewed. GROSS DESCRIPTION Received in fixative is one container labeled with the patient's name and designated rectal polyp biopsy. The specimen consists of one irregular fragment of light gonsalez soft tissue that measures 0.2 x 0.2 x 0.1 cm. The specimen is totally submitted in one cassette. / SJ:rg 07/11/2021 TC:1 CPT: 91304
[2021-07-10 07:51] VITALS: BP 127/78; BP 141/97; PULSE 76; RESP 14; TEMP 37.2; O2SAT 100
--- NOTE | 2021-07-10 07:54 | OP.COLON_ITS ---
Patient Name: Yvon Velazco Procedure Date: 07/10/2021 7:03 AM Date of : 1965 Age: 55 Procedure: Colonoscopy Indications: Screening for colorectal malignant neoplasm Providers: Smooth Zhang MD Referring MD: Nichole Grove Medicines: Monitored Anesthesia Care Patient Profile: This is a 55 year old male. Refer to note in patient chart for documentation of history and physical. Last Colonoscopy: none. The patient's first colonoscopy is today. Complications: No immediate complications. Procedure: Pre-Anesthesia Assessment: - Prior to the procedure, a History and Physical was performed, and patient medications and allergies were reviewed. The patient's tolerance of previous anesthesia was also reviewed. The risks and benefits of the procedure and the sedation options and risks were discussed with the patient. All questions were answered, and informed consent was obtained. Prior Anticoagulants: The patient has taken no previous anticoagulant or antiplatelet agents. After reviewing the risks and benefits, the patient was deemed in satisfactory condition to undergo the procedure. After I obtained informed consent, the scope was passed under direct vision. Throughout the procedure, the patient's blood pressure, pulse, and oxygen saturations were monitored continuously. The colonoscope was introduced through the anus and advanced to the cecum, identified by appendiceal orifice and ileocecal valve. The colonoscopy was performed without difficulty. The patient tolerated the procedure well. The quality of the bowel preparation was good. Scope In: 7:27:31 AM Scope Withdrawal Time 0 hours 9 minutes 5 seconds Scope Out: 7:44:46 AM Total Procedure Duration Time 0 hours 17 minutes 15 seconds Findings: Multiple small and large-mouthed diverticula were found in the sigmoid colon and descending colon. A small polyp was found in the rectum. The polyp was hyperplastic. The polyp was removed with a cold biopsy forceps. Resection and retrieval were complete. The exam was otherwise without abnormality on direct and retroflexion views. Impression: - Diverticulosis in the sigmoid colon and in the descending colon. - One small polyp in the rectum, removed with a cold biopsy forceps. Resected and retrieved. - The examination was otherwise normal on direct and retroflexion views. Recommendation: - Discharge patient to home. - Resume previous diet. - Continue present medications. - Await pathology results. - Repeat colonoscopy in 10 years for screening purposes. Procedure Code(s): --- Professional --- 54091, 33, Colonoscopy, flexible; with biopsy, single or multiple Diagnosis Code(s): --- Professional --- Z12.11, Encounter for screening for malignant neoplasm of colon K62.1, Rectal polyp K57.30, Diverticulosis of large intestine without perforation or abscess without bleeding CPT copyright 2017 [employer]. All rights reserved. The codes documented in this report are preliminary and upon brand development manager review may be revised to meet current compliance requirements. Smooth Zhang MD 07/10/2021 7:54:03 AM This report has been signed electronically. Number of Addenda: 0 Note Initiated On: 07/10/2021 7:03 AM
[2021-07-10 07:55] VITALS: BP 136/84; BP 141/97; PULSE 75; RESP 14; O2SAT 100
--- NOTE | 2021-07-10 07:55 | OP.CCLET_ITS ---
07/10/2021 Nichole Grove [facility] [address] [place] [address] Re : Colonoscopy procedure for Yvon Velazco Dear Dr. Grove This procedure was performed on Saturday, July 10, 2021. My impressions and recommendations are as follows: Impressions : - Diverticulosis in the sigmoid colon and in the descending colon. - One small polyp in the rectum, removed with a cold biopsy forceps. Resected and retrieved. - The examination was otherwise normal on direct and retroflexion views. Recommendations : - Discharge patient to home. - Resume previous diet. - Continue present medications. - Await pathology results. - Repeat colonoscopy in 10 years for screening purposes. My findings are described in the full procedure note, which is enclosed. If I can be of further assistance, please feel free to contact me at Doctor phone number(s): , Work: . Sincerely, Smooth Zhang MD 07/10/2021 7:54:03 AM This report has been signed electronically.
[2021-07-10 08:00] VITALS: BP 121/83; BP 141/97; PULSE 74; RESP 14; O2SAT 100
[2021-07-10 08:05] VITALS: BP 125/85; BP 141/97; PULSE 83; RESP 14; O2SAT 98
[2021-07-10 08:07] VITALS: BP 127/90; BP 141/97; PULSE 73; RESP 16; TEMP 36.7; O2SAT 100
== END 2021-07-10 08:34 | disposition home or self-care (01) ==
LOC: EN 06:30 → AC 06:30
PROVIDERS: PCP Internal Medicine; Referring Provider Internal Medicine; Visit Provider Surgery
PROC: 0DJD8ZZ Inspection of Lower Intestinal Tract, Via Natural or Artificial Opening Endoscopic (ICD-10-PCS; CPT 45378; principal; 2021-07-10 07:25)
DX: Z12.11 Encounter for screening for malignant neoplasm of colon (principal); J44.9 Chronic obstructive pulmonary disease, unspecified; D12.8 Benign neoplasm of rectum; K57.30 Diverticulosis of large intestine without perforation or abscess without bleeding; Z90.49 Acquired absence of other specified parts of digestive tract; I10 Essential (primary) hypertension; K21.9 Gastro-esophageal reflux disease without esophagitis; Z87.891 Personal history of nicotine dependence
CPT/HCPCS: 45380; 88305; J7120; J2405

== ENCOUNTER 2022-12-13 06:31 | Inpatient (IN) | payer MEDICAID, SELFPAY ==
[2022-12-13] VITALS (13 sets, daily range): BP systolic 151–225; BP diastolic 94–212; PULSE 67–112; RESP 12–18; TEMP 36.2–36.7; O2SAT 93–99; BMI 21.4; BMI 20.2
--- NOTE | 2022-12-13 06:41 | EKG12_ITS ---
Test Reason : stroke Blood Pressure : / mmHG Vent. Rate : 072 BPM Atrial Rate : 072 BPM P-R Int : 150 ms QRS Dur : 102 ms QT Int : 422 ms P-R-T Axes : 049 -34 037 degrees QTc Int : 462 ms Normal sinus rhythm Left axis deviation Voltage criteria for left ventricular hypertrophy ( R in aVL , Sokolow-Campos , Pollo product ) Septal infarct (cited on or before 13-DEC-2022) Abnormal ECG Confirmed by HOLLY PEREZ MD ([id number]), editor school photograph TERI SANON ([id number]) on 12/17/2022 8:00:22 AM Referred By: Confirmed By:HOLLY PEREZ MD
--- NOTE | 2022-12-13 06:41 | EDS_ITS ---
HPI History of Present Illness Chief Complaint: Neuro S/Sx Informant: patient Narrative Narrative: Patient presents to the emergency department around 6:30 AM because of weakness in the left arm and the left leg that he noticed yesterday. He states he noticed a cramp in his left leg when he woke up from a nap around 1500, and his leg seemed weak but he thought it was because of the pain. As the evening went on he noticed that his left arm was causing him problems, he is left-hand dominant and he was dropping things and having trouble holding up a cup which is very unusual for him and he was having trouble walking. He woke up this morning, and symptoms are persistent so he came to the emergency department. He states he was last normal at 1030 yesterday morning, after he got back from taking a family member to an appointment and then went to sleep. Patient states he has a history of hypertension which used to be the only prescription that he took, but he stopped taking it long ago when the medication ran out and he never got it refilled. He cannot remember when he stopped taking it. He takes no [id number] or prescription medications now. He is a smoker. No history of stroke that he knows of. He states he often has headaches and he has one now and yesterday, it is mild, he denies any sudden onset severe headaches, syncope, chest discomfort, dyspnea, or any other acute symptoms including numbness/tingling. [facility] Medical History Alcohol use Anxiety Arthritis Back pain GERD (gastroesophageal reflux disease) History of pain when walking HTN (hypertension) Hx of fracture of leg Marijuana use Smoker Wears glasses Home Medications Unobtainable 12/13/22 [History Last Taken Unknown] Allergy/AdvReac Type Severity Reaction Status Date / Time lisinopril Allergy Angioedema Verified 07/10/21 06:52 aspirin AdvReac HEARTBURN Verified 07/10/21 06:52 codeine AdvReac NIGHTMARES Verified 07/10/21 06:52 Family History (Updated 11/22/20 @ 14:04 by Jeanette Shaw) Other CAD (coronary artery disease) Cancer Diabetes Heart disease Kidney disease Myocardial infarction Seizures Surgical History History of tonsillectomy and adenoidectomy Hx of removal of testicle Social History Smoking Status: Current every day smoker tobacco type: cigarettes how long ago did patient quit smokin years quit 2018 alcohol intake: former details: quit 2019 substance use type: does not use ROS ROS ED Constitutional Constitutional ED: Denies chills or fever(s) Eyes Eyes: Reports change in vision bilateral (States he noticed that street lights were bothering his vision more than usual this morning in the dark but now seems normal); Denies diplopia ENT ENT ED: Denies rhinorrhea or sore throat Cardiovascular Cardiovascular: Denies chest pain or palpitations Respiratory/Chest Respiratory/Chest: Denies cough or dyspnea Gastrointestinal Gastrointestinal: Denies abdominal pain, diarrhea, nausea or vomiting Genitourinary Genitourinary ED: Denies dysuria or hematuria Musculoskeletal Musculoskeletal: Denies back pain or neck pain Integumentary Denies abscess or rash Neurologic Neurologic: Reports headache(s) and weakness; Denies paresthesias Psychiatric Psychiatric: Denies anxiety or suicidal thoughts EXAM Physical Exam Const Vital Signs: 12/13/22 06:33 12/13/22 06:47 12/13/22 06:41 Temperature 98 F Temperature Source Temporal Pulse Rate 105 H 112 H Respiratory Rate 12 18 Blood Pressure 215/128 H 225/111 H Blood Pressure Mean 157 149 Pulse Ox 99 99 Oxygen Delivery Method Room Air 12/13/22 07:11 Temperature Temperature Source Pulse Rate 86 Respiratory Rate 18 Blood Pressure 216/212 H Blood Pressure Mean 213 Pulse Ox 98 Oxygen Delivery Method Room Air Positive well nourished and well developed General Appearance ED: well developed and NAD HEENT Reports moist mucous membranes normocephalic and atraumatic Eyes PERRL and EOMs intact bilaterally Neck full ROM and supple Neck Narrative: No carotid bruits Resp normal respiratory effort and clear to auscultation bilaterally Cardio regular rate and regular rhythm Rate: tachycardic Heart Sounds: murmur systolic I/ soft GI non-tender and non-distended Auscultation: normoactive bowel sounds Palpation: soft Back/Spine no CVA tenderness General Back: other FROM Extremity normal to inspection General Extremety ED: Negative for edema, pulses abnormal or tenderness General Extremity: Negative for edema or pulses abnormal Neuro oriented x3, CN's II-XII intact bilaterally and no sensory deficits noted Neuro Narrative: Gvinno-md-wpon and qtmv-ru-jfsh bilaterally within limits of the exam with weakness on the left side no facial droop normal speech no dysarthria Quang Coma Scale: document GCS findings Spontaneous Obeys Commands Oriented 15 Sensorium / Orientation: awake and alert Motor Exam: strength abnormal other (Left upper and lower extremities weak) Psych mental status grossly normal Skin no rashes or lesions noted and no wounds NIHSS NIHSS Initial: 1a Level of Consciousness: 0 1b LOC Questions (Score 2 if aphasic/stupor): 0 1c LOC Commands (Only score 1st attempt): 0 2 Best Gaze (If aphasic, use reflexive mvmts.): 0 3 Visual: 0 4 Facial Palsy: 0 5 Motor Arm Right (UN = amputation/fusion): 0 5 Motor Arm Left: 1 6 Motor Leg Right: 0 6 Motor Leg Left: 1 7 Limb ataxia (Only + if out of proportion): 0 8 Sensory (Aphasia/stupor=0 or 1, coma=2): 1 9 Best Language: 0 10 Dysarthria (mute, coma=2, intubated=UN): 0 11 Extinction and Inattention (only scored if +): 0 Total Score: 3 MDM MDM MDM Narrative Medical decision making narrative: Patient with extremely high blood pressure here and stroke symptoms, he states his last known well was about 20-21 hours prior to evaluation so stroke alert was called in order to get quick CT and CT angiography of the head and neck, I reviewed these images and discussed with the radiologist and agree with their report, basically negative for bleed and negative for LVO. Discussed with stroke teleneurologist who wanted to beam in to the robot and evaluate the patient at the bedside. He cheng the possibility that there could be some ataxia in the left upper and lower extremities, but he agrees with me that it is debatable about whether it is out of proportion to the patient's objective weakness. Without the ataxia his NIHSS is 3. Antihypertensive is ordered. Will be given aspirin per stroke neurology after patient passes a swallow evaluation and he also recommended aiming for systolic of 160 with regards to blood pressure goal; plan will be for admission. History & Record Review Discussion w/independent historian: Patient Lab Data Attestation: I reviewed the patient's lab results. Labs: Laboratory Results - last 24 hr 12/13/22 06:55 WBC 10.3 RBC 4.02 L Hgb 11.6 L Hct 34.9 L MCV 86.8 MCH 28.9 MCHC 33.2 RDW Std Deviation 43.2 RDW Coeff of Wen 13.7 Plt Count 322 MPV 9.5 Immature Gran % (Auto) 0.400 Neut % (Auto) 77.1 H Lymph % (Auto) 12.8 L Bollinger % (Auto) 8.9 Eos % (Auto) 0.4 Baso % (Auto) 0.4 Absolute Neuts (auto) 7.9 H Absolute Lymphs (auto) 1.31 Nucleated RBC % 0 PT 12.9 INR 1.0 APTT 29.4 Sodium 127 L Potassium 3.6 Chloride 91 L Carbon Dioxide 27.0 Anion Gap 9 BUN 8 Creatinine 0.59 L Estim Creat Clear Calc 134.54 Est GFR (MDRD) Af Amer 183 Est GFR (MDRD) Non-Af 151 BUN/Creatinine Ratio 13.7 Glucose 119 H Calcium 8.4 L Troponin I High Sens 22 Radiography Chest X-Ray - ED: 1 View, Read by ED Physician, No Acute Disease and No Infiltrates Diagnostic Testing: Clinical Impression(s) from Imaging Studies Brain CT 12/13/22 06:41 IMPRESSION: Acute on chronic bilateral maxillary sinusitis. No acute intracranial hemorrhage or findings of acute infarction. Nonstandard communication protocol initiated. Electronically Signed: Regino Stewart MD at 7:03 EDT , ADDENDUM: 12/13/22 0719 IMPRESSION: Acute on chronic bilateral maxillary sinusitis. No acute intracranial hemorrhage or findings of acute infarction. Nonstandard communication protocol initiated. N.B. : The above Results were Read Back by Regino Stewart MD to Jose Lacy MD, and understanding confirmed on 12/13/2022 07:12:47 (ET). Electronically Signed: Regino Stewart MD at 7:03 EDT , Head/Neck CTA 12/13/22 06:41 IMPRESSION: Essentially negative CTA carotid and CTA brain. No hemodynamically significant stenosis or dissection identified within the carotid or vertebral arteries. Intracranially, no hemodynamically significant stenosis, MCA filling defect or aneurysm. Nonstandard communication protocol initiated and completed N.B. : The above Results were Read Back by Regino Stewart MD to Jose Lacy MD, and understanding confirmed on 12/13/2022 07:12:40 (ET). Electronically Signed: Regino Stewart MD at 7:20 EDT , ADDENDUM: 12/13/22 0727 IMPRESSION: Essentially negative CTA carotid and CTA brain. No hemodynamically significant stenosis or dissection identified within the carotid or vertebral arteries. Intracranially, no hemodynamically significant stenosis, MCA filling defect or aneurysm. Nonstandard communication protocol initiated and completed N.B. : The above Results were Read Back by Regino Stewart MD to Jose Lacy MD, and understanding confirmed on 12/13/2022 07:12:40 (ET). Electronically Signed: Regino Stewart MD at 7:20 EDT , Chest X-Ray 12/13/22 06:45 IMPRESSION: No radiographic evidence of acute cardiopulmonary disease. Electronically Signed: Regino Stewart MD at 7:09 EDT , Rhythm Strip Rhythm Strip: Sinus Tach Rate: 114 Ectopy: None EKG Initial EKG: Attestation: I personally reviewed and interpreted this EKG as follows: Interpretation: Sinus Rhythm and No Acute Injury Pattern Comments: Borderline LVH with strain pattern Management Discussion w/another healthcare provider: Hospitalist, Contract Designer (Dr. Weeks stroke neurology) and Radiologist Stroke Documentation Questions Stroke Team Activated: Yes (Due to patient still being within 24-hour window although no cortical signs) Was Patient considered for Endovascular Intervention?: No-CTA negative, determined not to be an endovascular candidate IV Thrombolytic Administered: No (Due to being out of window) Critical Care Time Critical Care Time: Yes Critical care time (excluding procedures): 30-74 minutes (33 min), Including time spent:, Discussing w/Patient &/or Family/Senior Electronics Technician, Discussing w/Consultants, Arranging Admission or Transfer and Performing Direct Patient Care at Bedside Discharge Plan Dx/Rx/DC Orders Clinical Impression: Acute ischemic right MCA stroke, Hypertensive emergency, Tobacco use Disposition Disposition: Acute Care Hospital [facility]
--- NOTE | 2022-12-13 06:41 | CT_ITS ---
EXAM: CT ANGIOGRAPHY HEAD AND NECK WITH INTRAVENOUS CONTRAST CLINICAL INDICATION: Neuro deficit, acute, stroke suspected TECHNIQUE: [place]/head and neck CT angiography protocol performed with intravenous contrast. This CT exam was performed using one or more of the following dose reduction techniques: automated exposure control, adjustment of the mA and/or kV according to patient size, and/or use of iterative reconstruction technique. MIP reconstructed images were created and reviewed. CONTRAST: IV 100mL [id number] RADIATION DOSE: Total DLP: 743.30 mGy-cm. COMPARISON: No relevant prior studies available. FINDINGS: HEAD: RIGHT ANTERIOR CEREBRAL ARTERY: Unremarkable. No significant stenosis at the visualized segments. Anterior communicating artery is present. No aneurysm. RIGHT MIDDLE CEREBRAL ARTERY: Unremarkable. No significant stenosis at the visualized segments. No aneurysm. No filling defect. RIGHT POSTERIOR CEREBRAL ARTERY: Small patent posterior communicating artery. No occlusion or significant stenosis. No aneurysm. RIGHT INTRACRANIAL INTERNAL CAROTID ARTERY: Calcified plaques in the right cavernous and supracavernous carotid artery cause less than 50%. No significant stenosis. No dissection or occlusion. RIGHT INTRACRANIAL VERTEBRAL ARTERY: Unremarkable. No significant stenosis. No dissection or occlusion. LEFT ANTERIOR CEREBRAL ARTERY: Unremarkable. No significant stenosis at the visualized segments. No aneurysm. LEFT MIDDLE CEREBRAL ARTERY: Unremarkable. No significant stenosis at the visualized segments. No aneurysm. No filling defect. LEFT POSTERIOR CEREBRAL ARTERY: Unremarkable. No occlusion or significant stenosis. No aneurysm. LEFT INTRACRANIAL INTERNAL CAROTID ARTERY: Calcified plaques in the cavernous carotid artery cause less than 50% stenosis. No significant stenosis. No dissection or occlusion. LEFT INTRACRANIAL VERTEBRAL ARTERY: Unremarkable. No significant stenosis. No dissection or occlusion. BASILAR ARTERY: Unremarkable. No significant stenosis. No aneurysm. OTHER VASCULATURE: No vascular malformation. Dural venous sinuses enhance normally. No enhancing intracranial mass. No acute infarction identified. NECK: RIGHT COMMON CAROTID ARTERY: Unremarkable. No significant stenosis. No dissection or occlusion. RIGHT EXTRACRANIAL INTERNAL CAROTID ARTERY: Calcified plaques within the proximal ICA causes less than 50% stenosis. Tortuous distal extracranial ICA. No significant stenosis. No dissection or occlusion. RIGHT EXTERNAL CAROTID ARTERY: Unremarkable. No occlusion. RIGHT EXTRACRANIAL VERTEBRAL ARTERY: Calcified plaque at the origin causes less than 50% stenosis. No significant stenosis. No dissection or occlusion. LEFT COMMON CAROTID ARTERY: Unremarkable. No significant stenosis. No dissection or occlusion. LEFT EXTRACRANIAL INTERNAL CAROTID ARTERY: Unremarkable. No significant stenosis. No dissection or occlusion. LEFT EXTERNAL CAROTID ARTERY: Unremarkable. No occlusion. LEFT EXTRACRANIAL VERTEBRAL ARTERY: Calcified plaque at the origin causes less than 50% stenosis. No significant stenosis. No dissection or occlusion. BRACHIOCEPHALIC AND SUBCLAVIAN ARTERIES: Unremarkable as visualized. No occlusion or significant stenosis. LUNG APICES: Findings of pulmonary emphysema. Peribronchial cuffing also noted indicating bronchial wall inflammation/bronchitis. No intimal flap within the aortic arch. Calcified granuloma in the left upper lobe laterally. HEAD and NECK: BONES/JOINTS: Degenerative disc disease at the C3/4 and C5/6 levels. SOFT TISSUES: Unremarkable. CAROTID STENOSIS REFERENCE USING NASCET CRITERIA: % ICA stenosis = (1 - narrowest ICA diameter/diameter of distal cervical ICA) x 100. Mild - <50% stenosis. Moderate - 50-69% stenosis. Severe - 70-94% stenosis. Near occlusion - 95-99% stenosis. Occluded - 100% stenosis. CT/STROKE CTA Head AND Neck W/Con IMPRESSION: Essentially negative CTA carotid and CTA brain. No hemodynamically significant stenosis or dissection identified within the carotid or vertebral arteries. Intracranially, no hemodynamically significant stenosis, MCA filling defect or aneurysm. Nonstandard communication protocol initiated and completed N.B. : The above Results were Read Back by Regino Stewart MD to Jose Lacy MD, and understanding confirmed on 12/13/2022 07:12:40 (ET). Electronically Signed: Regino Stewart MD at 7:20 EDT ,
--- NOTE | 2022-12-13 06:41 | CT_ITS ---
We are attempting to reach an attending provider to discuss findings. An addendum with communication details will be sent when the communication is complete. EXAM: CT HEAD WITHOUT INTRAVENOUS CONTRAST CLINICAL INDICATION: Neuro deficit, acute, stroke suspected TECHNIQUE: Multiple axial images were obtained of the head without intravenous contrast. This CT exam was performed using one or more of the following dose reduction techniques: automated exposure control, adjustment of the mA and/or kV according to patient size, and/or use of iterative reconstruction technique. RADIATION DOSE: Total DLP: 829.85 mGy-cm. COMPARISON: No relevant prior studies available. FINDINGS: BRAIN AND EXTRA-AXIAL SPACES: Unremarkable. No intra- or extra-axial hemorrhage. No evidence of acute infarct. No intracranial mass or mass effect. There is preservation of the gann/white matter interface. Posterior fossa structures are unremarkable. Ventricles are appropriate for age. No hydrocephalus. Basal cisterns are patent. BONES/JOINTS: No linear or depressed skull fracture. VASCULATURE: Atherosclerotic vascular calcification is present. The middle cerebral arteries are not hyperdense. SINUSES: Moderate mucosal thickening noted within both maxillary antra, with associated air-fluid levels. The maxillary sinus moise are mildly thickened and sclerotic. Minimal mucosal thickening noted within the inferior frontal sinuses in the anterior left ethmoid air cells. MASTOID AIR CELLS: Unremarkable. Clear. ORBITS: Visualized globes, extraocular muscles, optic nerves and retrobulbar fat appear unremarkable. Aspects score: 10/10. CT/STROKE Brain/Head without Cont IMPRESSION: Acute on chronic bilateral maxillary sinusitis. No acute intracranial hemorrhage or findings of acute infarction. Nonstandard communication protocol initiated. Electronically Signed: Regino Stewart MD at 7:03 EDT ,
--- NOTE | 2022-12-13 06:45 | RAD_ITS ---
EXAM: XR CHEST, 1 VIEW CLINICAL INDICATION: Neuro deficit, acute, stroke suspected TECHNIQUE: Frontal view of the chest. COMPARISON: Chest radiograph report of 06/13/2019. FINDINGS: LUNGS AND PLEURAL SPACES: Calcified granuloma again noted within the right midlung laterally and within the left lung apex laterally.. No consolidation or edema. No pneumothorax. No effusion. HEART: Normal heart size. Mild pruning of the peripheral pulmonary vascular markings suggestive of pulmonary emphysema. MEDIASTINUM: Minimal elongation of the thoracic aorta. No mediastinal widening.. BONES/JOINTS: Chronic deformity of the posterior right fifth through ninth ribs. Thoracic degenerative spurring. No acute osseous abnormality. SOFT TISSUES: Unremarkable. RAD/Chest 1 View IMPRESSION: No radiographic evidence of acute cardiopulmonary disease. Electronically Signed: Regino Stewart MD at 7:09 EDT ,
[2022-12-13 07:06] LABS: Absolute Lymphocyte Count 1.31 X10^3/uL (0.83-4.51); Absolute Neutrophil Count 7.9 X10^3/uL (2.0-7.7); Basophil# 0.04 X10^3/uL; Basophil% 0.4 % (0-1); Eosinophil# 0.04 X10^3/uL; Eosinophils% 0.4 % (0-5); Hematocrit 34.9 % (40-54); Hemoglobin 11.6 g/dL (13.0-16.5); Lymphocyte # 1.31 X10^3/ul (0.83-4.51); Lymphocyte % 12.8 % (19-41); Mean Corp Hgb Conc 33.2 g/dL (32-36); Mean Corpuscular Hgb 28.9 pg (27.0-32.0); Mean Corpuscular Volume 86.8 fL (80-94); Mean Platelet Vol. 9.5 fl (6.2-12.0); Monocyte# 0.91 X10^3/uL; Monocyte% 8.9 % (0-10); NRBC Flagged by Analyzer 0 % (0-5); Neutrophil # 7.91 X10^3/uL (2.7-7.7); Neutrophil % 77.1 % (47-70); Platelet Count 322 K/mm3 (150-450); RBC Distribution Width CV 13.7 % (11.6-14.6); RBC Distribution Width SD 43.2 fl (35.1-43.9); Red Blood Count 4.02 M/mm3 (4.6-6.2); White Blood Count 10.3 K/mm3 (4.4-11.0)
[2022-12-13 07:24] LABS: Partial Thromboplast Time 29.4 Seconds (24.1-36.2); Prothrombin Time (Protime)PT. 12.9 SECONDS (11.7-14.9)
[2022-12-13 07:26] LABS: Anion Gap 9 (5-15); BUN 8 mg/dL (7-18); BUN/Creat Ratio 13.7 RATIO (10-20); Calcium,Total 8.4 mg/dL (8.5-10.1); Chloride 91 mmol/L (98-107); Creatinine, Serum 0.59 mg/dL (0.70-1.30); EST Glomerular Filtration Rate 151 mL/min (>60); Est Glom Filt Rate - Afr Amer 183 mL/min (>60); Estimated Creatinine Clearance 134.54 ml/min; Glucose 119 mg/dL (74-106); Potassium 3.6 mmol/L (3.5-5.1); Sodium Level 127 mmol/L (136-145); Troponin-I HS 22 pg/mL (3.0-78.0)
[2022-12-13] MEDS: Labetalol (Prefilled) 20 MG/4 ML IV (07:28)
[2022-12-13] MEDS: Aspirin 325 MG Tablet PO (07:28)
--- NOTE | 2022-12-13 08:28 | MRI_ITS ---
We are attempting to reach an attending provider to discuss findings. An addendum with communication details will be sent when the communication is complete. STUDY: MRI BRAIN WITHOUT CONTRAST REASON FOR EXAM: Male, 57 years old. left sided weakness x24 hrs., hx bleed from fall, HTN TECHNIQUE: Standardized multiplanar fat and water weighted pulse sequences were obtained. COMPARISON: Head CT dated December 13, 2022. FINDINGS: A small acute infarct is present at the periphery of the right thalamic lobe. No additional acute infarcts is seen. An old lacunar infarct is seen in the central aspect of the left thalamic lobe. There is mild cerebral atrophy with widening of the extra-axial spaces and ventricular dilatation. There are a limited number of small white matter hyperintensities, distributed throughout the deep white matter tracts of the cerebral hemispheres, consistent with mild chronic white matter ischemic changes. Normal T2* images of the brain without demonstrated susceptibility artifact. There is no demonstrated hemosiderin stain. Normal bilateral basal ganglia. There is no extra-axial fluid accumulation. Normal flow voids within the major intracranial circulation suggesting patency by spin echo criteria. Normal sella turcica, pituitary gland, infundibular stalk, optic chiasm and hypothalamus. Normal tectal plate and pineal gland. Normal midbrain, liu and medulla. Normal cerebellum. Normal basal cisterns. Normal bilateral temporal bones. Normal bilateral internal auditory canals. No demonstrated orbital abnormality, within the constraints of a routine brain study. Moderate to significant mucous opacification of the bilateral maxillary sinuses noted. Normal calvarium and skull base. Normal visualized soft tissue structures. Normal visualized upper cervical spine. MRI/Brain without Contrast IMPRESSION: Small acute right thalamic lobe infarct. 1. A small acute infarct is present at the periphery of the right thalamic lobe. No additional acute infarcts is seen. An old lacunar infarct is seen in the central aspect of the left thalamic lobe. Electronically Signed: Filiberto Khan MD at 12:03 EDT ,
--- NOTE | 2022-12-13 08:28 | ECHOD_ITS ---
Reason For Study: TIA/CVA Procedure This was a 2D Doppler, Color Flow transthoracic echocardiogram. Exam performed portable in patient room. Left Ventricle Normal LV size. The estimated ejection fraction is 55 %. No evidence for diastolic dysfunction. No regional wall motion abnormalities noted. Right Ventricle Normal RV size. Normal systolic function. Atria Normal left atrium. Normal right atrium. No doppler evidence for ASD. Bubble contrast study negative for right to left interatrial shunt. Mitral Valve There is no mitral valve stenosis. Trivial mitral valve insufficiency. Tricuspid Valve There is no tricuspid stenosis. Unable to estimate RV systolic pressure due to inadequate jet, pulmonary artery pressure probably normal. Aortic Valve Trisinus/trileaflet aortic valve. There is no aortic stenosis. No aortic valve insufficiency. Pulmonic Valve There is no pulmonic valvular stenosis. No pulmonic valve insufficiency. Great Vessels Normal aortic root. Pericardium/Pleural No pericardial effusion. Medication Performed a rapid injection of agitated mix of 9 cc saline and 1cc air to assess for atrial septal defect. MMode/2D Measurements & Calculations LVIDd: 5.1 cm IVSd: 1.2 cm LVOT diam: 2.3 cm LVIDs: 3.9 cm LVPWd: 1.1 cm RVDd: 3.3 cm FS: 23.3 % LVOT area: 4.1 cm2 Ao root diam: 3.7 cm LAV(MOD-bp): 48.4 ml LVAd ap4: 37.2 cm2 LAV(MOD-bp) Indexed: 25.7 ml/m2 LVLd ap4: 9.3 cm LAV(MOD-sp2): 51.7 ml EDV(MOD-sp4): 119.9 ml LAV(MOD-sp4): 41.2 ml EDV(sp4-el): 125.6 ml LVAs ap4: 25.6 cm2 LVLs ap4: 8.3 cm ESV(MOD-sp4): 64.8 ml ESV(sp4-el): 67.1 ml EF(MOD-sp4): 46.0 % EF(sp4-el): 46.6 % LVAd ap2: 36.4 cm2 SV(MOD-sp4): 55.1 ml SV(MOD-sp2): 58.7 ml LVLd ap2: 9.7 cm EDV(MOD-sp2): 115.3 ml EDV(sp2-el): 116.1 ml LVAs ap2: 24.0 cm2 LVLs ap2: 8.8 cm ESV(MOD-sp2): 56.5 ml ESV(sp2-el): 55.5 ml EF(MOD-sp2): 50.9 % SV(sp4-el): 58.5 ml LA dimension(2D): 4.6 cm LA A4 area: 15.7 cm2 RA A4 area: 15.1 cm2 TAPSE: 1.9 cm Doppler Measurements & Calculations MV E max jason: 40.2 cm/sec Lat Peak E' Jason: 8.1 cm/sec Med Peak E' Jason: 6.3 cm/sec MV A max jason: 90.7 cm/sec E/E' lat: 5.0 E/E' med: 6.4 MV E/A: 0.44 Ao V2 max: 173.2 cm/sec LV V1 max: 106.7 cm/sec SV(LVOT): 75.3 ml Ao max P.0 mmHg LV V1 max P.6 mmHg Ao V2 mean: 122.5 cm/sec LV V1 mean P.4 mmHg Ao mean P.8 mmHg LV V1 mean: 72.3 cm/sec Ao V2 VTI: 31.7 cm LV V1 VTI: 18.4 cm AV (velocity ratio): 0.58 RODOLFO(I,D): 2.4 cm2 RODOLFO(V,D): 2.5 cm2 PA V2 max: 95.5 cm/sec ECHO/Echo Complete Interpretation Summary The estimated ejection fraction is 55 %. No evidence for diastolic dysfunction. Trivial mitral valve insufficiency. Ordering Physician: Diaz Pham Referring Physician: Nichole Grove M.D. Performed By: Margaret Turk RDCS
[2022-12-13 08:36] LABS: Bedside Glucose 115 mg/dL (74-106)
[2022-12-13 09:51] LABS: Troponin-I HS 40 pg/mL (3.0-78.0)
[2022-12-13] MEDS: LORazepam 2 MG/ML Syringe 1 MG IV (10:32)
[2022-12-13] MEDS: Enoxaparin 40 MG/0.4 ML Syringe SC (10:32)
--- NOTE | 2022-12-13 13:41 | CASEMGMT ---
SW completed a PHQ9 with patient as he had a Stroke. Patient scored a 0 which indicates no depression. SW also asked patient about his ETOH consumption. Patient said that he has cut back and does not need any resources. Patient denied any financial concerns regarding medications. Tita BEY
--- NOTE | 2022-12-13 13:50 | CASEMGMT ---
SW reviewed patient's therapy evaluations and therapy is recommending Acute Rehab. SW spoke with patient about recommendations and patient is agreeable to SW making a referral. SW explained if the rehab unit can take him he will wait at [facility] until his insurance approves him. SW explained this likely would be Friday or Friday. Patient verbalized understanding. SW made a referral to [facility] for [facility] Re[facility]. Tita BEY
--- NOTE | 2022-12-13 15:49 | CASEMGMT ---
Rehab can take patient, but it is questionable as to whether or not insurance would approve patient as he walked 100' with no assistive device. SW asked that we try and see what insurance says. SW let patient know this information. Plan: Possible inpatient rehab pending insurance approval. Tita Zhao SOCIAL WORKER [employer]
[2022-12-13] MEDS: guaiFENesin 1,200 MG Tablet 1200 MG PO (20:49)
[2022-12-14] VITALS (12 sets, daily range): BP systolic 158–200; BP diastolic 100–123; PULSE 73–94; RESP 15–18; TEMP 36.2–37.1; O2SAT 95–98; BMI 20.2
[2022-12-14 07:48] LABS: Cholesterol 193 mg/dL (200); High Density Lipoprotein 102 mg/dL; Triglycerides 77 mg/dL; Very Low Density Lipoprotein 15 mg/dL (5-40)
--- NOTE | 2022-12-14 08:48 | HP.PCM.HOS_ITS ---
HPI - General General Date of Admission: 12/13/22 Date of Service: 12/13/22 Chief Complaint: left sided weakness HPI Narrative NICOLE KEITH, is a 57 M who presents left-sided weakness. Patient noted the left-sided weakness after waking up from a nap on the around 1030. Was noted on his left arm and leg. Symptoms persisted until the where he was concerned and presented to the emergency room. Patient denies any other sympt oms nor any other prior episodes of this. Patient was brought in to complete further stroke evaluation. [facility] Medical History Alcohol use Anxiety Arthritis Back pain GERD (gastroesophageal reflux disease) History of pain when walking HTN (hypertension) Hx of fracture of leg Marijuana use Smoker Wears glasses Home Medications guaifenesin 1,200 mg tablet, extended release 12 hr (Mucinex) 1,200 mg PO Q12H congestion 12/13/22 [History Last Taken 12/12/22] loratadine .ROUTE congestion 12/13/22 [History Last Taken 12/12/22] losartan .ROUTE blood pressure 12/13/22 [History Last Taken Unknown] omeprazole .ROUTE GERD 12/13/22 [History Last Taken 12/12/22] Allergy/AdvReac Type Severity Reaction Status Date / Time lisinopril Allergy Angioedema Verified 07/10/21 06:52 aspirin AdvReac HEARTBURN Verified 07/10/21 06:52 codeine AdvReac NIGHTMARES Verified 07/10/21 06:52 Family History Other CAD (coronary artery disease) Cancer Diabetes Heart disease Kidney disease Myocardial infarction Seizures Surgical History History of tonsillectomy and adenoidectomy Hx of removal of testicle Social History Smoking Status: Current every day smoker tobacco type: cigarettes how long ago did patient quit smokin years quit 2018 alcohol intake: former details: quit 2019 substance use type: does not use ROS ROS Narrative All review of systems were negative except as mentioned above in the history of present illness and the other review of systems. Vital Signs Vital Signs Vital Signs: 12/13/22 08:58 12/13/22 09:50 12/13/22 10:28 Temperature 36.7 C Temperature Source Temporal Pulse Rate 76 Pulse Strength Normal (2+) Respiratory Rate 16 Respiratory Effort Respiratory Depth Respiratory Pattern Blood Pressure 172/97 H Blood Pressure [BP] Blood Pressure Mean 122 Blood Pressure Mean [BP] Blood Pressure Source Monitor Blood Pressure Position Semi-Fowlers Blood Pressure Location Right Arm Pulse Ox 95 Oxygen Delivery Method Room Air Room Air 12/13/22 10:55 12/13/22 11:07 12/13/22 11:19 Temperature Temperature Source Pulse Rate 73 77 81 Pulse Strength Respiratory Rate 16 16 16 Respiratory Effort Respiratory Depth Respiratory Pattern Blood Pressure 188/100 H 151/94 H 151/96 H Blood Pressure [BP] Blood Pressure Mean 129 113 114 Blood Pressure Mean [BP] Blood Pressure Source Monitor Monitor Monitor Blood Pressure Position Supine Supine Supine Blood Pressure Location Right Arm Right Arm Right Arm Pulse Ox 95 94 93 Oxygen Delivery Method Room Air Room Air Room Air 12/13/22 13:50 12/13/22 14:00 12/13/22 17:50 Temperature 36.3 C L 36.3 C L Temperature Source Temporal Oral Pulse Rate 79 78 Pulse Strength Respiratory Rate 16 16 Respiratory Effort Normal Non-Labored Respiratory Depth Normal Respiratory Pattern Normal Blood Pressure 196/111 H 174/110 H Blood Pressure [BP] Blood Pressure Mean 139 131 Blood Pressure Mean [BP] Blood Pressure Source Monitor Monitor Blood Pressure Position Semi-Fowlers Semi-Fowlers Blood Pressure Location Right Arm Left Arm Pulse Ox 98 98 Oxygen Delivery Method Room Air Room Air Room Air 12/13/22 20:49 12/13/22 22:00 12/13/22 20:50 Temperature 36.2 C L Temperature Source Temporal Pulse Rate 75 Pulse Strength Normal (2+) Respiratory Rate 18 Respiratory Effort Normal Non-Labored Respiratory Depth Normal Respiratory Pattern Normal Blood Pressure 184/109 H Blood Pressure [BP] Blood Pressure Mean 134 Blood Pressure Mean [BP] Blood Pressure Source Monitor Blood Pressure Position Semi-Fowlers Blood Pressure Location Right Forearm Pulse Ox 98 Oxygen Delivery Method Room Air Room Air 12/14/22 00:44 12/14/22 01:01 12/14/22 04:40 Temperature 36.9 C 37.1 C Temperature Source Oral Oral Pulse Rate 73 74 Pulse Strength Respiratory Rate 16 15 Respiratory Effort Normal Non-Labored Respiratory Depth Normal Respiratory Pattern Normal Blood Pressure 189/110 H 178/111 H Blood Pressure [BP] Blood Pressure Mean 136 133 Blood Pressure Mean [BP] Blood Pressure Source Monitor Monitor Blood Pressure Position Semi-Fowlers Semi-Fowlers Blood Pressure Location Right Arm Right Arm Pulse Ox 96 97 Oxygen Delivery Method Room Air Room Air Room Air 12/14/22 07:33 12/14/22 07:39 12/14/22 07:52 Temperature 36.8 C Temperature Source Temporal Pulse Rate 79 Pulse Strength Respiratory Rate 16 Respiratory Effort Respiratory Depth Respiratory Pattern Blood Pressure 200/123 H Blood Pressure [BP] 190/115 H Blood Pressure Mean 148 Blood Pressure Mean [BP] 140 Blood Pressure Source Monitor Blood Pressure Position Semi-Fowlers Blood Pressure Location Right Arm Pulse Ox 98 98 Oxygen Delivery Method Room Air Room Air Weight Weight: 65.771 kg Body Mass Index (BMI) 20.2 Physical Exam Const alert and no apparent distress HEENT normocephalic and head/scalp atraumatic Eyes PERRL and EOMs intact bilaterally Neck no lymphadenopathy Neck Narrative: No thyromegaly Resp normal respiratory effort, no retractions, no use of accessory muscles and clear to auscultation bilaterally Cardio regular rate, regular rhythm, S1 normal heart sound and S2 normal heart sound GI normal to inspection, nondistended, normoactive bowel sounds, soft to palpation, non-tender and non-distended Extremity normal to inspection Neuro oriented x3 and CN's II-XII intact bilaterally Neuro Narrative: 5-5 strength in right upper and lower extremity. 4-5 in the left upper and left lower extremity. Did have his ataxia in the left side correlating with his weakness. Sensorium / Orientation: awake and alert Speech: speech normal Psych affect normal Results Lab / Micro Data Attestation: I reviewed the patient's lab results. 12/13/22 06:55 12/13/22 06:55 Labs: Laboratory Results - last 24 hr 12/13/22 09:07: Troponin I High Sens 40 12/14/22 06:29: Triglycerides 77, Cholesterol 193, LDL Cholesterol 76, VLDL Cholesterol 15, HDL Cholesterol 102 Rhythm Strip Rhythm Strip: Sinus Tach Rate: 114 Ectopy: None Radiology Impression Brain MRI 12/13/22 08:28 IMPRESSION: Small acute right thalamic lobe infarct. 1. A small acute infarct is present at the periphery of the right thalamic lobe. No additional acute infarcts is seen. An old lacunar infarct is seen in the central aspect of the left thalamic lobe. Electronically Signed: Filiberto Khan MD at 12:03 EDT Reading Location ID and State: [facility] / [place] , Service support , ADDENDUM: 12/13/22 1242 IMPRESSION: Small acute right thalamic lobe infarct. 1. A small acute infarct is present at the periphery of the right thalamic lobe. No additional acute infarcts is seen. An old lacunar infarct is seen in the central aspect of the left thalamic lobe. N.B. : The above Results were Read Back by Filiberto Khan MD to Sanjuana Roberts RN, and understanding confirmed on 12/13/2022 12:35:46 (ET). Electronically Signed: Filiberto Khan MD at 12:03 EDT Reading Location ID and State: [address] [place] [address] , Service support , ADDENDUM: 12/13/22 1247 IMPRESSION: Small acute right thalamic lobe infarct. 1. A small acute infarct is present at the periphery of the right thalamic lobe. No additional acute infarcts is seen. An old lacunar infarct is seen in the central aspect of the left thalamic lobe. N.B. : The above Results were Read Back by Filiberto Khan MD to Sanjuana Roberts RN, and understanding confirmed on 12/13/2022 12:40:36 (ET). Electronically Signed: Filiberto Khan MD at 12:03 EDT , Assessment & Plan Assessment/Plan (1) Right thalamic stroke: PLAN: Acute. Date of onset was the . MRI shows the patient appears to have had an old lacunar infarct seen in the left thalamic stroke. CTA of the head neck was otherwise unremarkable Continue with aspirin Evaluated by neurology recommended loading with clopidogrel and then 75 mg daily. Starting atorvastatin at 40 mg daily. PT OT evaluate and treat. Follow-up echocardiogram (2) Hypertensive urgency: PLAN: Patient had been on antihypertensives but has been lost to follow-up and has not received any prescriptions since. We will initiate antihypertensives given the delayed presentation of his stroke symptoms. Continue with as needed medications PLAN: Plan VTE prophylaxis with enoxaparin. Disposition: Plan is for acute inpatient rehab pending insurance authorization Patient was seen and evaluated, history and physical performed on the though the documentation performed on the . Charges/Coding Visit Charges Inpatient E&M: 34368 Init Hosp L3
--- NOTE | 2022-12-14 08:58 | PCM.PN.HOSP ---
Reason for Visit Reason for Visit: Diagnoses Hypertensive urgency (12/13/22) Other cerebral infarction due to occlusion or stenosis of small artery (12/13/22) Subjective Subjective Still with left-sided weakness but coordination still off but slightly better. Noted that it was worse at night as he is more tired. Was able to walk with a walker around the unit. Objective Data Objective Data Vital Signs: Vital Signs Temp Pulse Resp BP Pulse Ox O2 Del Method 36.8 C 79 16 190/115 H 98 Room Air 12/14/22 07:39 12/14/22 07:39 12/14/22 07:39 12/14/22 07:52 12/14/22 07:39 12/14/22 07:45 Oxygen Delivery Method Room Air Weight: 65.771 kg Body Mass Index (BMI) 20.2 Intake & Output: Intake and Output for Last 24 Hours 12/12/22 12/13/22 12/14/22 23:59 23:59 23:59 Intake Total 650 / 650 375 / 375 Balance 650 / 650 375 / 375 Lab / Micro Data 12/13/22 06:55 12/13/22 06:55 Labs: Laboratory Results - last 24 hr 12/13/22 09:07: Troponin I High Sens 40 12/14/22 06:29: Triglycerides 77, Cholesterol 193, LDL Cholesterol 76, VLDL Cholesterol 15, HDL Cholesterol 102 Radiography Diagnostic Testing: Radiology Impression Brain MRI 12/13/22 08:28 IMPRESSION: Small acute right thalamic lobe infarct. 1. A small acute infarct is present at the periphery of the right thalamic lobe. No additional acute infarcts is seen. An old lacunar infarct is seen in the central aspect of the left thalamic lobe. Electronically Signed: Filiberto Khan MD at 12:03 EDT , ADDENDUM: 12/13/22 1242 IMPRESSION: Small acute right thalamic lobe infarct. 1. A small acute infarct is present at the periphery of the right thalamic lobe. No additional acute infarcts is seen. An old lacunar infarct is seen in the central aspect of the left thalamic lobe. N.B. : The above Results were Read Back by Filiberto Khan MD to Sanjuana Roberts RN, and understanding confirmed on 12/13/2022 12:35:46 (ET). Electronically Signed: Filiberto Khan MD at 12:03 EDT , ADDENDUM: 12/13/22 1247 IMPRESSION: Small acute right thalamic lobe infarct. 1. A small acute infarct is present at the periphery of the right thalamic lobe. No additional acute infarcts is seen. An old lacunar infarct is seen in the central aspect of the left thalamic lobe. N.B. : The above Results were Read Back by Filiberto Khan MD to Sanjuana Roberts RN, and understanding confirmed on 12/13/2022 12:40:36 (ET). Electronically Signed: Filiberto Khan MD at 12:03 EDT , Rhythm Strip Rhythm Strip: Sinus Tach Rate: 114 Ectopy: None Physical Exam Const alert and no apparent distress HEENT head/scalp atraumatic Eyes conjunctivae normal Extremity normal to inspection Neuro Neuro Narrative: Still with ataxia and discoordination on his left upper extremity. Patient was stacking medicine cups and he had clear obvious discoordination with his left side. Sensorium / Orientation: awake and alert Assessment & Plan Assessment/Plan (1) Right thalamic stroke: PLAN: Acute. Date of onset was the . MRI shows the patient appears to have had an old lacunar infarct seen in the left thalamic stroke. CTA of the head neck was otherwise unremarkable Continue with aspirin Evaluated by neurology recommended loading with clopidogrel and then 75 mg daily. Starting atorvastatin at 40 mg daily. PT OT evaluate and treat. Follow-up echocardiogram (2) Hypertensive urgency: PLAN: Patient had been on antihypertensives but has been lost to follow-up and has not received any prescriptions since. We will initiate antihypertensives given the delayed presentation of his stroke symptoms. Continue with as needed medications Patient has noted allergy to KRUPA inhibitors with angioedema. Would avoid angiotensin receptor blockers due to the potential for angioedema with those class of medications. Will initiate amlodipine as well is hydrochlorothiazide PLAN: Plan VTE prophylaxis with enoxaparin. Disposition: Plan is for acute inpatient rehab pending insurance authorization Charges/Coding Visit Charges Inpatient E&M: 86395 Subs Hosp L2
[2022-12-14] MEDS: guaiFENesin 1,200 MG Tablet 1200 MG PO ×2 (09:07→20:20)
[2022-12-14] MEDS: Loratadine 10 MG Tablet PO (09:07)
[2022-12-14] MEDS: Aspirin 81 MG TAB.CHEW PO (09:07)
[2022-12-14] MEDS: Enoxaparin 40 MG/0.4 ML Syringe SC (09:08)
[2022-12-14] MEDS: Clopidogrel Bisulfate 300 MG Tablet PO (10:01)
[2022-12-14] MEDS: hydroCHLOROthiazide 25 MG Tablet PO (10:01)
[2022-12-14] MEDS: amLODIPine 5 MG Tablet PO (10:02)
[2022-12-14] MEDS: 0.9% Saline Lock 10 ML Syringe IV ×2 (12:48→15:55)
[2022-12-14] MEDS: Acetaminophen 325 MG Tablet 650 MG PO (14:39)
[2022-12-14] MEDS: hydrALAZINE 20 MG/ML Vial 5 MG IV (15:54)
[2022-12-14] MEDS: Atorvastatin Calcium 40 MG Tablet PO (20:20)
[2022-12-15] VITALS (9 sets, daily range): BP systolic 177–191; BP diastolic 104–118; PULSE 70–92; RESP 14–16; TEMP 36.4–36.8; O2SAT 97–99; BMI 20.2
[2022-12-15] MEDS: Labetalol (Prefilled) 20 MG/4 ML IV ×2 (06:30→18:10)
--- NOTE | 2022-12-15 07:38 | PCM.PN.HOSP ---
Reason for Visit Reason for Visit: Diagnoses Hypertensive urgency (12/13/22) Other cerebral infarction due to occlusion or stenosis of small artery (12/13/22) Subjective Subjective Still with weakness on left side with his arm being greater than his right. Feels like he is doing better. Was able to shave using his left hand today (with no nicks), but afterwards his left arm is tired. Objective Data Objective Data Vital Signs: Vital Signs Temp Pulse Resp BP Pulse Ox O2 Del Method 36.6 C 74 16 182/113 H 99 Room Air 12/15/22 06:00 12/15/22 06:00 12/15/22 06:00 12/15/22 06:00 12/15/22 06:00 12/15/22 06:00 Oxygen Delivery Method Room Air Weight: 65.771 kg Body Mass Index (BMI) 20.2 Intake & Output: Intake and Output for Last 24 Hours 12/13/22 12/14/22 12/15/22 23:59 23:59 23:59 Intake Total 650 / 650 375 / 375 Balance 650 / 650 375 / 375 Lab / Micro Data 12/13/22 06:55 12/13/22 06:55 Labs: Laboratory Results - last 24 hr 12/14/22 06:29: Triglycerides 77, Cholesterol 193, LDL Cholesterol 76, VLDL Cholesterol 15, HDL Cholesterol 102 Rhythm Strip Rhythm Strip: Sinus Tach Rate: 114 Ectopy: None Physical Exam Const alert and no apparent distress HEENT head/scalp atraumatic Neuro oriented x3 and moves all extremities Neuro Narrative: MS 4/5 in LUE and LLE. Assessment & Plan Assessment/Plan (1) Right thalamic stroke: PLAN: Acute. Date of onset was the . MRI shows the patient appears to have had an acute right thalamic infarct and an old lacunar infarct seen in the left thalamic lobe. CTA of the head neck was otherwise unremarkable Continue with aspirin Evaluated by neurology recommended loading with clopidogrel and then 75 mg daily. Starting atorvastatin at 40 mg daily. PT OT evaluate and treat. Follow-up echocardiogram (2) Hypertensive urgency: PLAN: Ongoing but improved. Previously, patient had been on antihypertensives but has been lost to follow-up and has not received any prescriptions since. For treatment, patient has noted allergy to KRUPA inhibitors with angioedema. Would avoid angiotensin receptor blockers due to the potential for angioedema with those class of medications. He was initiated on 5mg of amlodipine and 25mg of hydrochlorothiazide on 12/14. I suspect he will need further adjustments of his antihypertensives. PLAN: Plan VTE prophylaxis with enoxaparin. Disposition: Plan is for acute inpatient rehab pending insurance authorization Charges/Coding Visit Charges Inpatient E&M: 57496 Subs Hosp L2
[2022-12-15] MEDS: Aspirin 81 MG TAB.CHEW PO ×2 (07:39→10:26)
[2022-12-15] MEDS: guaiFENesin 1,200 MG Tablet 1200 MG PO ×2 (10:26→20:43)
[2022-12-15] MEDS: Enoxaparin 40 MG/0.4 ML Syringe SC (10:26)
[2022-12-15] MEDS: Clopidogrel Bisulfate 75 MG Tablet PO (10:26)
[2022-12-15] MEDS: amLODIPine 5 MG Tablet PO (10:26)
[2022-12-15] MEDS: Loratadine 10 MG Tablet PO (10:26)
[2022-12-15] MEDS: hydroCHLOROthiazide 25 MG Tablet PO (10:26)
[2022-12-15] MEDS: 0.9% Saline Lock 10 ML Syringe IV (18:13)
[2022-12-15] MEDS: Atorvastatin Calcium 40 MG Tablet PO (20:43)
[2022-12-16] VITALS (8 sets, daily range): BP systolic 154–184; BP diastolic 87–115; PULSE 60–105; RESP 14–18; TEMP 36.4–37; O2SAT 96–100; BMI 20.2
[2022-12-16] MEDS: amLODIPine 10 MG Tablet PO (09:28)
[2022-12-16] MEDS: Loratadine 10 MG Tablet PO (09:28)
[2022-12-16] MEDS: Enoxaparin 40 MG/0.4 ML Syringe SC (09:28)
[2022-12-16] MEDS: Clopidogrel Bisulfate 75 MG Tablet PO (09:28)
[2022-12-16] MEDS: hydroCHLOROthiazide 25 MG Tablet PO (09:28)
[2022-12-16] MEDS: guaiFENesin 1,200 MG Tablet 1200 MG PO ×2 (11:16→22:38)
--- NOTE | 2022-12-16 12:25 | PN_ITS ---
Subjective Subjective Patient seen and examined. He complained of worsening weakness in his left arm. Review of systems is otherwise negative. He has remained hemodynamically stable. Objective Data Objective Data Vital Signs: Vital Signs Temp Pulse Resp BP Pulse Ox O2 Del Method 98 F 98 14 184/115 H 96 Room Air 12/16/22 09:10 12/16/22 09:10 12/16/22 09:10 12/16/22 09:10 12/16/22 09:10 12/16/22 09:10 Oxygen Delivery Method Room Air Weight: 145 lb Body Mass Index (BMI) 20.2 Intake & Output: Intake and Output for Last 24 Hours 12/14/22 12/15/22 12/16/22 23:59 23:59 23:59 Intake Total 375 / 375 240 / 240 50 / 50 Output Total 1000 / 1000 Balance 375 / 375 240 / 240 -950 / -950 Lab / Micro Data 12/13/22 06:55 12/13/22 06:55 Rhythm Strip Rhythm Strip: Sinus Tach Rate: 114 Ectopy: None Physical Exam Const alert, oriented x3 and no apparent distress General Appearance: cooperative HEENT normocephalic, head/scalp atraumatic, moist oral mucous membranes and oropharynx normal Eyes PERRL and EOMs intact bilaterally Neck no lymphadenopathy and supple Lymph Lymphatic: no lymphadenopathy noted and no lymphedema noted Resp normal respiratory effort and normal air movement Cardio regular rate, regular rhythm, S1 normal heart sound, S2 normal heart sound and no murmurs GI normal to inspection, nondistended, normoactive bowel sounds, soft to palpation, non-tender and non-distended Extremity normal capillary refill, no clubbing, cyanosis or edema and no calf tenderness Skin General Skin Exam: no breakdown Neuro CN's II-XII intact bilaterally and no sensory deficits noted Neuro Narrative: power in LUE is 3/5 Motor Exam: general weakness Psych thought process normal and cooperative Appearance: appropriate Assessment & Plan Assessment/Plan (1) Hypertensive urgency: (2) Right thalamic stroke: (3) Acute ischemic right MCA stroke: PLAN: Plan #Acute right thalamic stroke * MRI of the brain showed an acute right thalamic stroke and an old lacunar infarct in the left thalamic lobe * CTA head and neck showed no hemodynamically significant stenosis * on aspirin and plavix 75mg daily * on high intensity statom 40mg daily * PT/OT On board * 2D echo ordered and pending * [facility] neurology reviewed him * I believe patient will be able to tolerate 3 hours of therapy 5 days a week * #Hypertensive urgency * resolved. on amlodipine 5mg daily and 25mg daily of HCTZ * BP still running high, so patient started on PO amlodipine 10mg daily * IV hydralazine prn * DVT prophylaxis: lovenox Disposition: awaiting placement Charges/Coding Visit Charges Inpatient E&M: 33785 Subs Hosp L2
[2022-12-16] MEDS: Acetaminophen 325 MG Tablet 650 MG PO (15:36)
[2022-12-16] MEDS: Atorvastatin Calcium 40 MG Tablet PO (22:38)
[2022-12-17] VITALS (7 sets, daily range): BP systolic 151–210; BP diastolic 96–117; PULSE 68–102; RESP 16–18; TEMP 36.4–36.9; O2SAT 95–100; BMI 20.2
[2022-12-17 06:23] LABS: Absolute Lymphocyte Count 1.75 X10^3/uL (0.83-4.51); Absolute Neutrophil Count 7.7 X10^3/uL (2.0-7.7); Basophil# 0.04 X10^3/uL; Basophil% 0.4 % (0-1); Eosinophil# 0.26 X10^3/uL; Eosinophils% 2.4 % (0-5); Hematocrit 40.1 % (40-54); Lymphocyte # 1.75 X10^3/ul (0.83-4.51); Lymphocyte % 16.3 % (19-41); Mean Corp Hgb Conc 32.4 g/dL (32-36); Mean Corpuscular Volume 89.5 fL (80-94); Mean Platelet Vol. 10.1 fl (6.2-12.0); Monocyte% 9.3 % (0-10); NRBC Flagged by Analyzer 0 % (0-5); Neutrophil # 7.66 X10^3/uL (2.7-7.7); Neutrophil % 71.2 % (47-70); Platelet Count 340 K/mm3 (150-450); RBC Distribution Width CV 14.1 % (11.6-14.6); Red Blood Count 4.48 M/mm3 (4.6-6.2); White Blood Count 10.8 K/mm3 (4.4-11.0)
[2022-12-17 06:56] LABS: Anion Gap 7 (5-15); BUN 12 mg/dL (7-18); BUN/Creat Ratio 18.7 RATIO (10-20); Calcium,Total 9.5 mg/dL (8.5-10.1); Chloride 99 mmol/L (98-107); Creatinine, Serum 0.64 mg/dL (0.70-1.30); EST Glomerular Filtration Rate 136 mL/min (>60); Est Glom Filt Rate - Afr Amer 165 mL/min (>60); Estimated Creatinine Clearance 117.04 ml/min; Glucose 102 mg/dL (74-106); Potassium 3.3 mmol/L (3.5-5.1); Sodium Level 132 mmol/L (136-145)
[2022-12-17] MEDS: guaiFENesin 1,200 MG Tablet 1200 MG PO ×2 (09:58→22:16)
[2022-12-17] MEDS: amLODIPine 10 MG Tablet PO (09:58)
[2022-12-17] MEDS: Potassium Chloride Oral Tablet 20 MEQ 40 MEQ PO (09:58)
[2022-12-17] MEDS: Enoxaparin 40 MG/0.4 ML Syringe SC (09:59)
[2022-12-17] MEDS: Aspirin 81 MG TAB.CHEW PO (09:59)
[2022-12-17] MEDS: hydroCHLOROthiazide 25 MG Tablet PO (09:59)
[2022-12-17] MEDS: Loratadine 10 MG Tablet PO (09:59)
[2022-12-17] MEDS: Clopidogrel Bisulfate 75 MG Tablet PO (09:59)
--- NOTE | 2022-12-17 13:54 | PN_ITS ---
Subjective Subjective Patient seen and examined. He feels well and has no complaints. He had an uneventful night. Review of systems otherwise negative. He is awaiting placement. He feels the weakness in his LUE has improved slightly. Objective Data Objective Data Vital Signs: Vital Signs Temp Pulse Resp BP Pulse Ox O2 Del Method 97.8 F 102 H 17 167/109 H 95 Room Air 12/17/22 13:42 12/17/22 13:42 12/17/22 13:42 12/17/22 13:42 12/17/22 13:42 12/17/22 13:42 Oxygen Delivery Method Room Air Weight: 145 lb Body Mass Index (BMI) 20.2 Intake & Output: Intake and Output for Last 24 Hours 12/15/22 12/16/22 12/17/22 23:59 23:59 23:59 Intake Total 240 / 240 550 / 1270 1270 / 1270 Output Total 1000 / 1000 Balance 240 / 240 -450 / 270 1270 / 1270 Lab / Micro Data 12/17/22 05:34 12/17/22 05:34 Labs: Laboratory Results - last 24 hr 12/17/22 05:34: WBC 10.8, RBC 4.48 L, Hgb 13.0, Hct 40.1, MCV 89.5, MCH 29.0, MCHC 32.4, RDW Std Deviation 46.0 H, RDW Coeff of Wen 14.1, Plt Count 340, MPV 10.1, Immature Gran % (Auto) 0.400, Neut % (Auto) 71.2 H, Lymph % (Auto) 16.3 L, Campbell % (Auto) 9.3, Eos % (Auto) 2.4, Baso % (Auto) 0.4, Absolute Neuts (auto) 7.7, Absolute Lymphs (auto) 1.75, Nucleated RBC % 0, Sodium 132 L, Potassium 3.3 L, Chloride 99, Carbon Dioxide 26.0, Anion Gap 7, BUN 12, Creatinine 0.64 L, Estim Creat Clear Calc 117.04, Est GFR (MDRD) Af Amer 165, Est GFR (MDRD) Non-Af 136, BUN/Creatinine Ratio 18.7, Glucose 102, Calcium 9.5 Radiography Diagnostic Testing: Radiology Impression Echocardiogram 12/13/22 08:28 Interpretation Summary The estimated ejection fraction is 55 %. No evidence for diastolic dysfunction. Trivial mitral valve insufficiency. Ordering Physician: Diaz Pham Referring Physician: Nichole Grove M.D. Performed By: Margaret Turk RDCS Rhythm Strip Rhythm Strip: Sinus Tach Rate: 114 Ectopy: None Physical Exam Const alert, oriented x3 and no apparent distress General Appearance: cooperative HEENT normocephalic, head/scalp atraumatic, moist oral mucous membranes and oropharynx normal Eyes PERRL, EOMs intact bilaterally and conjunctivae normal Neck no lymphadenopathy and supple Lymph Lymphatic: no lymphadenopathy noted and no lymphedema noted Resp normal respiratory effort, normal air movement, no retractions, no use of accessory muscles and clear to auscultation bilaterally Cardio regular rate, regular rhythm, S1 normal heart sound, S2 normal heart sound and no murmurs GI normal to inspection, nondistended, normoactive bowel sounds, soft to palpation, non-tender and non-distended Extremity normal to inspection, normal capillary refill, no clubbing, cyanosis or edema and no calf tenderness Skin General Skin Exam: no breakdown Neuro oriented x3, CN's II-XII intact bilaterally, moves all extremities and no sensory deficits noted Neuro Narrative: power in LUE is 3/5 Sensorium / Orientation: awake and alert Speech: speech normal Motor Exam: general weakness Psych thought process normal, cooperative and affect normal Appearance: appropriate Assessment & Plan Assessment/Plan (1) Hypertensive urgency: (2) Right thalamic stroke: (3) Acute ischemic right MCA stroke: PLAN: Plan #Acute right thalamic stroke * MRI of the brain showed an acute right thalamic stroke and an old lacunar infarct in the left thalamic lobe * CTA head and neck showed no hemodynamically significant stenosis * on aspirin and plavix 75mg daily * on high intensity statom 40mg daily * PT/OT On board * 2D echo showed EF of 55% with no evidence of diastolic dysfunction. * [facility] neurology reviewed him * I believe patient will be able to tolerate 3 hours of therapy 5 days a week * #Hypokalemia: Potassium is 3.3. Replace and trend. #Hypertension * resolved. on amlodipine 10mg daily and 25mg daily of HCTZ * IV hydralazine prn * DVT prophylaxis: lovenox Disposition: awaiting placement Charges/Coding Visit Charges Inpatient E&M: 62660 Subs Hosp L2
[2022-12-17] MEDS: Acetaminophen 325 MG Tablet 650 MG PO (17:45)
[2022-12-17] MEDS: Atorvastatin Calcium 40 MG Tablet PO (22:16)
[2022-12-18 01:28] VITALS: BMI 20.2
[2022-12-18 02:09] VITALS: BP 154/98; PULSE 71; RESP 16; TEMP 36.7; O2SAT 98
[2022-12-18 04:00] VITALS: PULSE 72
[2022-12-18 06:00] VITALS: BP 149/102; PULSE 76; RESP 18; TEMP 36.6; O2SAT 100
[2022-12-18 06:13] LABS: Absolute Lymphocyte Count 1.64 X10^3/uL (0.83-4.51); Absolute Neutrophil Count 5.2 X10^3/uL (2.0-7.7); Basophil# 0.04 X10^3/uL; Basophil% 0.5 % (0-1); Eosinophil# 0.34 X10^3/uL; Eosinophils% 4.2 % (0-5); Hematocrit 38.5 % (40-54); Hemoglobin 12.3 g/dL (13.0-16.5); Lymphocyte # 1.64 X10^3/ul (0.83-4.51); Lymphocyte % 20.3 % (19-41); Mean Corp Hgb Conc 31.9 g/dL (32-36); Mean Corpuscular Hgb 28.9 pg (27.0-32.0); Mean Corpuscular Volume 90.4 fL (80-94); Mean Platelet Vol. 10.5 fl (6.2-12.0); Monocyte# 0.84 X10^3/uL; Monocyte% 10.4 % (0-10); NRBC Flagged by Analyzer 0 % (0-5); Neutrophil # 5.17 X10^3/uL (2.7-7.7); Neutrophil % 64.2 % (47-70); Platelet Count 310 K/mm3 (150-450); RBC Distribution Width CV 14.1 % (11.6-14.6); RBC Distribution Width SD 46.5 fl (35.1-43.9); Red Blood Count 4.26 M/mm3 (4.6-6.2); White Blood Count 8.1 K/mm3 (4.4-11.0)
[2022-12-18 06:45] LABS: Anion Gap 6 (5-15); BUN 14 mg/dL (7-18); BUN/Creat Ratio 24.7 RATIO (10-20); Chloride 102 mmol/L (98-107); Creatinine, Serum 0.57 mg/dL (0.70-1.30); EST Glomerular Filtration Rate 157 mL/min (>60); Est Glom Filt Rate - Afr Amer 190 mL/min (>60); Estimated Creatinine Clearance 131.41 ml/min; Glucose 100 mg/dL (74-106); Potassium 3.5 mmol/L (3.5-5.1); Sodium Level 132 mmol/L (136-145)
[2022-12-18 10:00] VITALS: BP 167/106; PULSE 95; RESP 17; TEMP 36.9; O2SAT 96
[2022-12-18] MEDS: Aspirin 81 MG TAB.CHEW PO (10:05)
[2022-12-18] MEDS: Loratadine 10 MG Tablet PO (10:05)
[2022-12-18] MEDS: hydroCHLOROthiazide 25 MG Tablet PO (10:06)
[2022-12-18] MEDS: guaiFENesin 1,200 MG Tablet 1200 MG PO (10:06)
[2022-12-18] MEDS: Clopidogrel Bisulfate 75 MG Tablet PO (10:06)
[2022-12-18] MEDS: Enoxaparin 40 MG/0.4 ML Syringe SC (10:06)
[2022-12-18] MEDS: amLODIPine 10 MG Tablet PO (10:06)
[2022-12-18 14:00] VITALS: BP 159/95; PULSE 107; RESP 17; TEMP 36.8; O2SAT 99
--- NOTE | 2022-12-18 14:09 | PN_ITS ---
Subjective Subjective Patient seen and examined. He had no active complaints. He said the weakness in his left arm is improving. Review of systems otherwise negative. He is awaiting placement. Objective Data Objective Data Vital Signs: Vital Signs Temp Pulse Resp BP Pulse Ox O2 Del Method 98.5 F 95 17 167/106 H 96 Room Air 12/18/22 10:00 12/18/22 10:00 12/18/22 10:00 12/18/22 10:00 12/18/22 10:00 12/18/22 10:00 Oxygen Delivery Method Room Air Weight: 145 lb Body Mass Index (BMI) 20.2 Intake & Output: Intake and Output for Last 24 Hours 12/16/22 12/17/22 12/18/22 23:59 23:59 23:59 Intake Total 550 / 1270 1710 / 2670 1440 / 1440 Output Total 1000 / 1000 Balance -450 / 270 1710 / 2670 1440 / 1440 Lab / Micro Data 12/18/22 05:18 12/18/22 05:18 Labs: Laboratory Results - last 24 hr 12/18/22 05:18: WBC 8.1, RBC 4.26 L, Hgb 12.3 L, Hct 38.5 L, MCV 90.4, MCH 28.9, MCHC 31.9 L, RDW Std Deviation 46.5 H, RDW Coeff of Wen 14.1, Plt Count 310, MPV 10.5, Immature Gran % (Auto) 0.400, Neut % (Auto) 64.2, Lymph % (Auto) 20.3, Barry % (Auto) 10.4 H, Eos % (Auto) 4.2, Baso % (Auto) 0.5, Absolute Neuts (auto) 5.2, Absolute Lymphs (auto) 1.64, Nucleated RBC % 0, Sodium 132 L, Potassium 3.5, Chloride 102, Carbon Dioxide 24.0, Anion Gap 6, BUN 14, Creatinine 0.57 L, Estim Creat Clear Calc 131.41, Est GFR (MDRD) Af Amer 190, Est GFR (MDRD) Non-Af 157, BUN/Creatinine Ratio 24.7 H, Glucose 100, Calcium 9.0 Rhythm Strip Rhythm Strip: Sinus Tach Rate: 114 Ectopy: None Physical Exam Const alert, oriented x3 and no apparent distress General Appearance: cooperative HEENT normocephalic, head/scalp atraumatic, moist oral mucous membranes and oropharynx normal Eyes PERRL, EOMs intact bilaterally and conjunctivae normal Neck no lymphadenopathy and supple Lymph Lymphatic: no lymphadenopathy noted and no lymphedema noted Resp normal respiratory effort, normal air movement, no retractions, no use of accessory muscles and clear to auscultation bilaterally Cardio regular rate, regular rhythm, S1 normal heart sound, S2 normal heart sound and no murmurs GI normal to inspection, nondistended, normoactive bowel sounds, soft to palpation, non-tender and non-distended Extremity normal to inspection, normal capillary refill, no clubbing, cyanosis or edema and no calf tenderness General Extremity: no tenderness to palpation of joints or extremities Skin General Skin Exam: no breakdown Neuro oriented x3, CN's II-XII intact bilaterally, moves all extremities and no sensory deficits noted Neuro Narrative: power in LUE is 3/5 Sensorium / Orientation: awake and alert Speech: speech normal Motor Exam: general weakness Psych thought process normal, cooperative and affect normal Appearance: appropriate Assessment & Plan Assessment/Plan (1) Hypertensive urgency: (2) Right thalamic stroke: (3) Acute ischemic right MCA stroke: PLAN: Plan #Acute right thalamic stroke * MRI of the brain showed an acute right thalamic stroke and an old lacunar infarct in the left thalamic lobe * CTA head and neck showed no hemodynamically significant stenosis * on aspirin and plavix 75mg daily * on high intensity statom 40mg daily * PT/OT On board * 2D echo showed EF of 55% with no evidence of diastolic dysfunction. * SOC neurology reviewed him * I believe patient will be able to tolerate 3 hours of therapy 5 days a week * #Hypokalemia: Potassium is 3.5 today. #Hypertension * resolved. on amlodipine 10mg daily and 25mg daily of HCTZ * IV hydralazine prn * DVT prophylaxis: lovenox Disposition: awaiting placement Charges/Coding Visit Charges Inpatient E&M: 85531 Subs Hosp L2
--- NOTE | 2022-12-18 15:14 | CASEMGMT ---
Insurance has denied patient for Acute Rehab Unit. SW notified patient and he was understandably very upset. SW listened and provided emotional support. SW explained home health or half-way are options as well. Patient said he needed a minute to talk with his roommate. SW told patient SW will check back with patient. Tita Zhao SAP BASIS CONSULTANT SOTERO
--- NOTE | 2022-12-18 15:25 | CASEMGMT ---
SW went back to patient's room per his request. SW did provide patient with a copy of the denial letter. Patient said he would like home health, he needs medications, and he needs a shower chair and walker. [facility] he has worked with them before. Patient said he would like [facility] as he has worked with them in the past also. SW let patient know SW and RN CM will work on this. CACHORRO updated RN CM. CACHORRO did talk with [facility] and they can take patient. CACHORRO notified patient, but he spoke with RN CM and would like outpatient. CACHORRO called Kierra at [facility] and cancelled referral. Tita Zhao TILE SPRAYER Allan
--- NOTE | 2022-12-18 15:34 | CASEMGMT ---
Addendum entered by Paz Luke 12/18/22 16:36: AISSATOU HUBER updated by [facility] that they do not have robb-walkers or shower chairs. AISSATOU HUBER called [facility] and they do not have robb walker. Per TCU SW, [facility] had robb walkers. AISSATOU HUBER called and left message for Susie at [facility] [place], her hours are till 5pm. AISSATOU HUBER updated patient, patient will not be picked up till after 6pm. Patient will not be able to go to [facility] prior to 5pm. Patient states he would like FWW from [facility] today. AISSATOU HUBER recieved scritp for FWW. RN CECILE instructed patient to go to [facility] [place] to fill robb-walker and shower chair. Patient voiced understanding. AISSATOU HUBER faxed referral to [facility] [place] [facility] for hemiwalker and shower chair. AISSATOU HUBER sent referral to [facility] for FWW via [employer]. Original Note: AISSATOU HUBER updated by that patient is wanting to go home at discharge. AISSATOU HUBER in to discuss needs at discharge. Patient states he would like robb walker, shower chair, and outpatient therapy. Patient states he prefers [facility] for DME. Patient states he would like to schedule outpatient therapy on his own. Scripts received from hospitalist. Referral sent to [facility] and arranged for hemiwalker to be delivered to patient's room. AISSATOU HUBER faxed script to [facility] and provided to patient along with [facility] information. Patient had no further questions or concerns.
--- NOTE | 2022-12-18 15:52 | PCM.DC.SUM ---
Providers Date of Admission: 12/13/22 Date of Discharge: 12/18/22 Primary Care Physician: Dr. Nichole Grove MD Reason For Visit: CVA Diagnosis Discharge Diagnosis (1) Hypertensive urgency: Status: Acute Code(s): I16.0 - Hypertensive urgency (2) Right thalamic stroke: Status: Acute Code(s): I63.81 - Other cerebral infarction due to occlusion or stenosis of small artery (3) Acute ischemic right MCA stroke: Status: Acute Code(s): I63.511 - Cerebral infarction due to unspecified occlusion or stenosis of right middle cerebral artery Plan #Acute right thalamic stroke MRI of the brain showed an acute right thalamic stroke and an old lacunar infarct in the left thalamic lobe CTA head and neck showed no hemodynamically significant stenosis on aspirin and plavix 75mg daily on high intensity statom 40mg daily PT/OT On board 2D echo showed EF of 55% with no evidence of diastolic dysfunction. SOC neurology reviewed him I believe patient will be able to tolerate 3 hours of therapy 5 days a week #Hypokalemia: Potassium is 3.5 today. #Hypertension resolved. on amlodipine 10mg daily and 25mg daily of HCTZ IV hydralazine prn DVT prophylaxis: lovenox Disposition: awaiting placement Medications at Discharge Home Medications guaifenesin 1,200 mg tablet, extended release 12 hr (Mucinex) 1,200 mg PO Q12H congestion 12/13/22 loratadine .ROUTE congestion 12/13/22 losartan .ROUTE blood pressure 12/13/22 omeprazole .ROUTE GERD 12/13/22 amlodipine 10 mg tablet 10 mg PO DAILY #30 tabs 12/18/22 aspirin 81 mg chewable tablet 81 mg PO BREAKFAST #30 tabs 12/18/22 atorvastatin 40 mg tablet 40 mg PO QHS #30 tabs 12/18/22 clopidogrel 75 mg tablet 75 mg PO DAILY #3 tabs 12/18/22 hydrochlorothiazide 25 mg tablet 25 mg PO DAILY #30 tabs 12/18/22 Hospital Course Operations None Procedures 2-D Echocardiogram Summary of Care Provided Minutes Spent on Discharge: 55 Hospital Course: Patient is a 57-year-old male with a past medical history as outlined who was admitted with a complaint of left-sided weakness which started on the day before admission around 10:30 AM. It was mainly in his left arm and leg. His symptoms persisted so he came into the ED. He denied any slurred speech, mouth droop or any other symptoms. Review of systems otherwise negative. CT of the brain showed no acute intracranial pathology. MRI of the brain however did show a small acute infarct at the periphery of the right thalamic lobe with no additional acute infarct seen in an old lacunar infarct in the central aspect of the left thalamic lobe. He was admitted and managed for acute CVA. He was started on aspirin and Plavix as well as high intensity statin. He worked with physical therapy. Patient was additionally not deemed as needing skilled therapy. CTA of the head and neck showed no hemodynamically significant stenosis. 2D echo showed EF of 55% with no evidence of diastolic dysfunction. Blood pressure was markedly elevated and he was placed on amlodipine 10 mg daily as well as hydrochlorothiazide 25 mg daily. Blood pressure control improved. Insurance denied placement in acute rehab facility. Patient was amenable to going home with home health. He was discharged home on 12/18/2022. He was discharged on p.o. aspirin and Plavix as well as high intensity statin. He was discharged on p.o. amlodipine and hydrochlorothiazide and is follow-up with his primary care doctor within 1 to 2 weeks. He was also referred to neurology on outpatient basis. Patient seen and examined prior to discharge. He had no complaints and had an uneventful night. Review of systems otherwise negative. Labs and vitals reviewed. Home medication reviewed and reconciled. Physical Exam Const alert, oriented x3 and no apparent distress General Appearance: cooperative HEENT normocephalic, head/scalp atraumatic, hearing grossly normal bilaterally, moist oral mucous membranes and oropharynx normal Mouth: oral and palatal mucosa normal Eyes PERRL, EOMs intact bilaterally and conjunctivae normal Neck no lymphadenopathy and supple Neck Narrative: No thyromegaly Lymph Lymphatic: no lymphadenopathy noted and no lymphedema noted Resp normal respiratory effort, normal air movement, no retractions, no use of accessory muscles and clear to auscultation bilaterally Cardio regular rate, regular rhythm, S1 normal heart sound, S2 normal heart sound and no murmurs GI normal to inspection, nondistended, normoactive bowel sounds, soft to palpation, non-tender and non-distended Extremity normal to inspection, full ROM, normal capillary refill, no clubbing, cyanosis or edema and no calf tenderness General Extremity: no tenderness to palpation of joints or extremities Skin General Skin Exam: no breakdown Neuro oriented x3, CN's II-XII intact bilaterally, moves all extremities and no sensory deficits noted Neuro Narrative: power in LUE is 4/5 Sensorium / Orientation: awake and alert Speech: speech normal Motor Exam: general weakness Psych thought process normal, cooperative and affect normal Appearance: appropriate Weight / BMI Weight Weight: 145 lb Body Mass Index (BMI) 20.2 ABG / Lab / Microbiology Data 12/18/22 05:18 12/18/22 05:18 Laboratory: Laboratory Results - last 24 hr 12/18/22 05:18: WBC 8.1, RBC 4.26 L, Hgb 12.3 L, Hct 38.5 L, MCV 90.4, MCH 28.9, MCHC 31.9 L, RDW Std Deviation 46.5 H, RDW Coeff of Wen 14.1, Plt Count 310, MPV 10.5, Immature Gran % (Auto) 0.400, Neut % (Auto) 64.2, Lymph % (Auto) 20.3, Pine % (Auto) 10.4 H, Eos % (Auto) 4.2, Baso % (Auto) 0.5, Absolute Neuts (auto) 5.2, Absolute Lymphs (auto) 1.64, Nucleated RBC % 0, Sodium 132 L, Potassium 3.5, Chloride 102, Carbon Dioxide 24.0, Anion Gap 6, BUN 14, Creatinine 0.57 L, Estim Creat Clear Calc 131.41, Est GFR (MDRD) Af Amer 190, Est GFR (MDRD) Non-Af 157, BUN/Creatinine Ratio 24.7 H, Glucose 100, Calcium 9.0 D/C Instructions Discharge Diet: Low fat / Low cholesterol Discharge Activity: Return to Normal Activity Weight Bearing Status: Weight bearing as tolerated Call your doctor if you observe: Fever of 101 or Higher, Shortness of breath, Dizziness, Swelling in the ankles and Chest pain Meaningful Use Info Meaningful Use Diagnoses (Choose all that apply): Ischemic CVA CVA Therapy Assessed for PT,OT and/or ST?: Yes Ischemic Stroke Antithrombotic order at d/c?: Yes Dx of Atrial fib/flutter?: No Statins at discharge?: Yes Primary Dx Acute Ischemic CVA?: Yes IV thrombolytic ordered during stay?: No Reason IV thrombolytic not ordered: Treatment not Indicated Discharge Plan Admission Admit Date/Time: 12/13/22 07:33 Primary Reason for Your Visit: acute CVA Attending Provider: Asia Tate Primary Care Provider: Nichole Grove Consulting Providers: Diaz Pham Instructions Patient Instructions: Arm Care After a Stroke Discharge Orders/Prescriptions Prescriptions: New atorvastatin 40 mg Tablet 40 mg PO QHS Qty: 30 2RF clopidogrel 75 mg Tablet 75 mg PO DAILY Qty: 3 2RF amlodipine 10 mg Tablet 10 mg PO DAILY Qty: 30 2RF aspirin 81 mg Tablet,Chewable 81 mg PO BREAKFAST Qty: 30 2RF hydrochlorothiazide 25 mg Tablet 25 mg PO DAILY Qty: 30 2RF Continued guaifenesin [Mucinex] 1,200 mg tablet extended release 12hr 1,200 mg PO Q12H losartan .ROUTE omeprazole .ROUTE loratadine [Allergy Relief (loratadine)] .ROUTE Referrals / Follow Up: Nichole Grove MD [Primary Care Provider] - Within 1 Week Bull Buckley MD [Non-Staff -Ordering Privileges] - Within 2 Weeks (see to establish care for stroke ) Disposition Disposition (needs filled in before D/C Order can be placed): Home Health Service Charges/Coding Visit Charges Inpatient E&M: 72843 Disch Hosp >30min
[2022-12-18 16:46] VITALS: BMI 20.2
--- NOTE | 2022-12-23 12:13 | CASEMGMT ---
business development director received a call from patient regarding patient interested in nursing home facility. SW called patient back. Introduced self and role at [facility]. Patient said he made a mistake and should have gone to a [place] health care facility instead of home. SW told patient to contact his primary care doctor's office and they should be able to assist patient. Tita BEY
== END 2022-12-18 18:01 | disposition home health service (06) | DRG 45 ==
LOC: ED 07:16 → PCU 08:20
PROVIDERS: Emergency Provider Emergency Medicine; PCP Internal Medicine; Visit Provider Student in an Organized Health Care Education/Training Program
DX: I63.511 Cerebral infarction due to unspecified occlusion or stenosis of right middle cerebral artery (principal); G81.94 Hemiplegia, unspecified affecting left nondominant side; I10 Essential (primary) hypertension; F17.200 Nicotine dependence, unspecified, uncomplicated; I16.0 Hypertensive urgency; E87.6 Hypokalemia; Z79.82 Long term (current) use of aspirin
CPT/HCPCS: 36415; 70450; 70496; 70498; 70551; 71045; 80048; 80061; 82962; 84484; 85025; 85610; 85730; 92610; 93005; 93306; 97110; 97112; 97116; 97162; 97166; 97530; 97535; 97802; 99283; 99406; Q9967; A4216

== ENCOUNTER 2022-12-25 11:31 | Observation (INO) | payer MEDICAID, SELFPAY ==
[2022-12-25] VITALS (11 sets, daily range): BP systolic 134–168; BP diastolic 82–101; PULSE 92–101; RESP 14–18; TEMP 36.3–36.8; O2SAT 96–99; BMI 22.0; BMI 20.5
--- NOTE | 2022-12-25 11:51 | EX.ED.DYSGE1 ---
HPI History of Present Illness Chief Complaint: Weakness Informant: patient Narrative Narrative: Patient presents with some worsening weakness and difficulty functioning at home. Patient had a stroke on the 13th of this month. He has left-sided symptoms. He is left hand dominant. He was in the hospital for about 7 days. Plan was to go to in-hospital rehab but insurance would not approve it. He then had options of going home or going to a prison facility. He felt as though he could go home. But he states he did not have as much help as he thought he would. He has been having trouble getting around but it seems like it is really gotten worse over the last couple days. He states the weakness is all in the same area. He does not feel as though he has had another stroke but he is not sure. He just states it is much harder to get around. The last couple days he has fallen. He states they were just very mild falls he did not hurt himself. He does not have fevers or chills. He is able to eat and drink. Patient does admit to drinking alcohol since he has been home. He thought it would make him feel better. But he was drinking when he went home and seems stronger and his drinking did not change the last couple days where he is thinks he is just getting overall weaker and not doing well. He feels that he is to the point he needs to go to a prison facility. He is just not managing at home well. [facility] Medical History Alcohol use Anxiety Arthritis Back pain GERD (gastroesophageal reflux disease) History of pain when walking HTN (hypertension) Hx of fracture of leg Marijuana use Smoker Wears glasses Home Medications guaifenesin 1,200 mg tablet, extended release 12 hr (Mucinex) 1,200 mg PO Q12H PRN CONGESTION 12/13/22 [History Last Taken 12/12/22] amlodipine 10 mg tablet 10 mg PO DAILY BLOOD PRESSURE #30 tabs 12/18/22 [Rx Last Taken 12/25/22] aspirin 81 mg chewable tablet 81 mg PO BREAKFAST HEART HEALTH #30 tabs 12/18/22 [Rx Last Taken 12/25/22] atorvastatin 40 mg tablet 40 mg PO QHS CHOLESTEROL #30 tabs 12/18/22 [Rx Last Taken 12/24/22] clopidogrel 75 mg tablet 75 mg PO DAILY BLOOD THINNER #3 tabs 12/18/22 [Rx Last Taken 12/25/22] hydrochlorothiazide 25 mg tablet 25 mg PO DAILY BLOOD PRESSURE #30 tabs 12/18/22 [Rx Last Taken 12/25/22] losartan 50 mg tablet 50 mg PO DAILY BLOOD PRESSURE 12/25/22 [History Last Taken 12/25/22] omeprazole 10 mg capsule,delayed release 10 mg PO DAILY ACID REFLUX 12/25/22 [History Last Taken 12/25/22] Allergy/AdvReac Type Severity Reaction Status Date / Time lisinopril Allergy Angioedema Verified 12/25/22 11:37 aspirin AdvReac HEARTBURN Verified 12/25/22 11:37 codeine AdvReac NIGHTMARES Verified 12/25/22 11:37 Family History Other CAD (coronary artery disease) Cancer Diabetes Heart disease Kidney disease Myocardial infarction Seizures Surgical History History of tonsillectomy and adenoidectomy Hx of removal of testicle Social History Smoking Status: Current every day smoker tobacco type: cigarettes how long ago did patient quit smokin years quit 2018 alcohol intake: former details: quit 2019 substance use type: does not use ROS ROS ED ROS Narrative A complete review of systems was performed and is negative except as documented in the history of present illness. Some specific details below. Constitutional: No recent fevers or chills. No rigors. Patient has not generally felt ill. EYE: No discharge, visual complaints, or pain. ENT: No difficulty swallowing. No swelling.No nasal discharge. No change in hearing. CV: No chest pain, pressure or aching. No palpitations or irregular beats. Patient has not been presyncopal or syncopal. Has fallen but they were mechanical. Respiratory: No trouble breathing. No cough. No sputum production. GI: No abdominal pain. No nausea vomiting diarrhea. No blood in stool. He is able to eat and drink. He has no swallowing difficulties. : No frequency dysuria or hematuria. Musculoskeletal: No recent trauma. Not hurt himself when he fell. No pains. No swelling. Skin: No rash. Nondiaphoretic. Neuro: History of present illness. Patient's weakness is in the same area of his left leg and left arm. He just states it is harder and harder to get around. He does not think he has had a recurrent stroke but he is not sure. Endocrine: No polyuria or polydipsia. EXAM Physical Exam Narrative Exam Narrative: Neuro: Patient is actually awake alert and nontoxic. He is a pretty good informant for details. HEENT shows minimally dry mucous membranes but no sign of trauma. Neck is supple. Heart is regular with a rate about 90. Lungs are clear bilaterally and saturations are normal at 99% on room air showing no hypoxia. No pain with a deep breath. Abdomen is soft nontender. Extremities show no acute trauma. Neurologic: Patient alert oriented x3. He has definite left-sided weakness related to his recent stroke. But he states its not focally a lot different than baseline. He just feels overall too weak to walk safely now. Const Vital Signs: 12/25/22 11:32 12/25/22 11:36 12/25/22 12:00 Temperature 97.4 F L Temperature Source Temporal Pulse Rate 94 Respiratory Rate 18 18 Respiratory Effort Normal Non-Labored Respiratory Pattern Normal Blood Pressure 159/99 H 166/90 H Blood Pressure Mean 119 115 Pulse Ox 99 Oxygen Delivery Method Room Air MDM MDM MDM Narrative Medical decision making narrative: CBC shows mild anemia. Patient's electrolytes show very low sodium and low potassium. I have initiated IV fluids and oral potassium replacement. There is no history of seizure. Liver function test are overall normal. Patient's alcohol level is up to 63. Patient is on a. Dual platelet therapy for his recent stroke. He was started on hydrochlorothiazide. He will also drink moderate amount of alcohol. He has now dropped his sodium and potassium. I think this is likely the overall cause of his this. I think this is more likely the cause of his weakness than worsening of his stroke. My independent interpretation of the CT scan of the head shows no acute lead final reading does show changes consistent with his recent stroke. Lab Data Attestation: I reviewed the patient's lab results. Labs: Laboratory Results - last 24 hr 12/25/22 12:30 WBC 9.6 RBC 3.80 L Hgb 11.1 L Hct 31.8 L MCV 83.7 MCH 29.2 MCHC 34.9 RDW Std Deviation 40.6 RDW Coeff of Wen 13.2 Plt Count 404 MPV 9.5 Immature Gran % (Auto) 0.400 Neut % (Auto) 72.5 H Lymph % (Auto) 17.3 L Storey % (Auto) 8.3 Eos % (Auto) 1.0 Baso % (Auto) 0.5 Absolute Neuts (auto) 7.0 Absolute Lymphs (auto) 1.66 Nucleated RBC % 0 Sodium 119 L* Potassium 2.7 L* Chloride 81 L Carbon Dioxide 27.0 Anion Gap 11 BUN 8 Creatinine 0.49 L Estim Creat Clear Calc 166.18 Est GFR (MDRD) Af Amer 224 Est GFR (MDRD) Non-Af 185 BUN/Creatinine Ratio 16.3 Glucose 100 Calcium 9.0 Total Bilirubin 0.30 AST 28 ALT 26 Alkaline Phosphatase 86 Total Protein 8.2 Albumin 3.9 Globulin 4.3 H Albumin/Globulin Ratio 0.9 Ethyl Alcohol 63.0 Radiography Diagnostic Testing: Clinical Impression(s) from Imaging Studies Brain CT 12/25/22 12:55 IMPRESSION: Findings suggestive of a recent lacunar infarct in the left thalamus. Electronically Signed: Colin Velez MD at 13:14 EDT , EKG Initial EKG: Comments: My independent interpretation of the patient's EKG shows a normal sinus rhythm with signs of LVH. Overall rate 90. Diffuse nonspecific changes likely related to LVH. TN interval, QRS duration are normal and QTc is a bit long. Management Discussion w/another healthcare provider: Hospitalist Discharge Plan Dx/Rx/DC Orders Clinical Impression: Acute hyponatremia, Alcohol abuse, Acute hypokalemia, Inability to walk, History of recent stroke Disposition Disposition: Acute Care Hospital [facility]
[2022-12-25 12:43] LABS: Absolute Lymphocyte Count 1.66 X10^3/uL (0.83-4.51); Basophil# 0.05 X10^3/uL; Basophil% 0.5 % (0-1); Hematocrit 31.8 % (40-54); Hemoglobin 11.1 g/dL (13.0-16.5); Lymphocyte # 1.66 X10^3/ul (0.83-4.51); Lymphocyte % 17.3 % (19-41); Mean Corp Hgb Conc 34.9 g/dL (32-36); Mean Corpuscular Hgb 29.2 pg (27.0-32.0); Mean Corpuscular Volume 83.7 fL (80-94); Mean Platelet Vol. 9.5 fl (6.2-12.0); Monocyte% 8.3 % (0-10); NRBC Flagged by Analyzer 0 % (0-5); Neutrophil # 6.97 X10^3/uL (2.7-7.7); Neutrophil % 72.5 % (47-70); Platelet Count 404 K/mm3 (150-450); RBC Distribution Width CV 13.2 % (11.6-14.6); RBC Distribution Width SD 40.6 fl (35.1-43.9); White Blood Count 9.6 K/mm3 (4.4-11.0)
[2022-12-25] MEDS: 0.9% Normal Saline (500mL Bag) 500 ML 1000 ML IV (12:49)
--- NOTE | 2022-12-25 12:55 | CT_ITS ---
STUDY: CT BRAIN WITHOUT CONTRAST REASON FOR EXAM: Male, 57 years old. Stroke. Increased weakness. RADIATION DOSAGE (If Supplied By Facility): CTDIvol = ( 47.06 ) mGy, DLP = ( 960.91 ) mGycm TECHNIQUE: Transaxial CT imaging of the brain was performed without administration of intravenous contrast material. Individualized dose optimization techniques were used for this CT. COMPARISON: Comparison is made with prior examination dated December 13, 2022. FINDINGS: Normal soft tissue structures. Normal calvarium. Normal size ventricles and extra-axial spaces for the patient''s age. Normal white matter tracts of the cerebral hemispheres. Focal hypodensity seen in the right thalamus suggestive of a recent lacunar infarct. Normal brainstem. Normal cerebellum. There is no intracranial hemorrhage. There are no findings of an acute ischemic infarction. Stable opacification of the maxillary sinuses bilaterally and causing thickening of the ethmoid sinuses. CT/Brain/Head without Contrast IMPRESSION: Findings suggestive of a recent lacunar infarct in the left thalamus. Electronically Signed: Colin Velez MD at 13:14 EDT ,
[2022-12-25 13:18] LABS: ALB/GLOB Ratio 0.9 RATIO (0.9-2.4); AST(SGOT) 28 U/L (15-37); Alanine Aminotransfer ALT/SGPT 26 U/L (16-61); Albumin, Serum 3.9 g/dL (3.2-5.0); Alkaline Phosphatase 86 U/L (45-117); Anion Gap 11 (5-15); BUN 8 mg/dL (7-18); BUN/Creat Ratio 16.3 RATIO (10-20); Chloride 81 mmol/L (98-107); Creatinine, Serum 0.49 mg/dL (0.70-1.30); EST Glomerular Filtration Rate 185 mL/min (>60); Est Glom Filt Rate - Afr Amer 224 mL/min (>60); Estimated Creatinine Clearance 166.18 ml/min; Globulin 4.3 g/dL (2.2-4.2); Glucose 100 mg/dL (74-106); Potassium 2.7 mmol/L (3.5-5.1); Protein, Total 8.2 g/dL (6.4-8.2); Sodium Level 119 mmol/L (136-145)
--- NOTE | 2022-12-25 14:15 | PCM.HP.STD ---
HPI - General General Date of Admission: 12/25/22 Date of Service: 12/25/22 Chief Complaint: Generalized weakness HPI Narrative NICOLE KEITH, is a 57 M who presented to the emergency department at [facility] on 12/25/2022 with worsening weakness. He states it developed over the last 2 days. He was admitted here recently from 12/14/2022 through 12/18/2022 and diagnosed with an acute ischemic stroke in the right thalamic region and hypertensive urgency. And was able to be discharged home. The patient stated he was doing fairly well up until 2 days ago. He was started on hydrochlorothiazide at the time of discharge for his blood pressure but he feels like his blood pressures are still higher than they should be. He is still drinking alcohol intermittently and. And states he drank 6 beers last night and 6 beers the night before but indicated this was the first alcohol use had since he was discharged. He has had previous withdrawal symptoms a long time ago when he was drinking more heavily but nothing recently. He also states he is still smoking about a pack of cigarettes a day.. He was having difficulty taking care of himself at home due to his worsening weakness and came to the emergency department as he felt he may need to be admitted to the care home facility. He indicated up until 2 days ago he was doing well at home. He denies any other associated symptoms other than a mild headache. He states he took some Tylenol earlier today but had no real reduction in his headache. Vital signs on presentation were unremarkable other than elevated blood pressure. His initial blood pressure was 159/99 with reduction to 143/88. CBC was overall unremarkable. His chemistry panel was markedly abnormal with a sodium of 119 and potassium of 2.7. His magnesium was normal. His renal function was normal. His liver functions unremarkable. His ethyl alcohol level was 63. EKG was unremarkable. CT of the brain showed findings suggestive of a recent lacunar infarct in the left thalamus which is consistent with previous imaging. I highly suspect his generalized weakness are due to his profound hypokalemia and hyponatremia. I suspect his hyponatremia is predominantly related to his hydrochlorothiazide use exacerbated by alcohol use. [facility] Medical History (Updated 12/25/22 @ 16:[address] Eladia Mcghee, DO) Alcohol use Anxiety Arthritis Back pain GERD (gastroesophageal reflux disease) History of pain when walking HTN (hypertension) Hx of fracture of leg Marijuana use Right thalamic stroke Smoker Wears glasses Home Medications guaifenesin 1,200 mg tablet, extended release 12 hr (Mucinex) 1,200 mg PO Q12H PRN CONGESTION 12/13/22 [History Last Taken 12/12/22] amlodipine 10 mg tablet 10 mg PO DAILY BLOOD PRESSURE #30 tabs 12/18/22 [Rx Last Taken 12/25/22] aspirin 81 mg chewable tablet 81 mg PO BREAKFAST HEART HEALTH #30 tabs 12/18/22 [Rx Last Taken 12/25/22] atorvastatin 40 mg tablet 40 mg PO QHS CHOLESTEROL #30 tabs 12/18/22 [Rx Last Taken 12/24/22] clopidogrel 75 mg tablet 75 mg PO DAILY BLOOD THINNER #3 tabs 12/18/22 [Rx Last Taken 12/25/22] hydrochlorothiazide 25 mg tablet 25 mg PO DAILY BLOOD PRESSURE #30 tabs 12/18/22 [Rx Last Taken 12/25/22] losartan 50 mg tablet 50 mg PO DAILY BLOOD PRESSURE 12/25/22 [History Last Taken 12/25/22] omeprazole 10 mg capsule,delayed release 10 mg PO DAILY ACID REFLUX 12/25/22 [History Last Taken 12/25/22] Allergy/AdvReac Type Severity Reaction Status Date / Time lisinopril Allergy Angioedema Verified 12/25/22 11:37 aspirin AdvReac HEARTBURN Verified 12/25/22 11:37 codeine AdvReac NIGHTMARES Verified 12/25/22 11:37 Family History Other CAD (coronary artery disease) Cancer Diabetes Heart disease Kidney disease Myocardial infarction Seizures Surgical History History of tonsillectomy and adenoidectomy Hx of removal of testicle Social History (Updated 12/25/22 @ 16:[address] Eladia Mcghee DO) household members: none housing: apartment Smoking Status: Current every day smoker tobacco type: cigarettes how long ago did patient quit smokin years quit 2019 alcohol intake: current alcohol intake frequency: a few times a week Alcohol type: beer details: Patient drinks intermittently-predominantly seems to binge drink at this po substance use type: does not use ROS Constitutional Constitutional: Reports fatigue, malaise and weakness; Denies anorexia, change in weight, chills, fever(s), night sweats or other Eyes Eyes: Denies blurry vision, change in eye color, change in vision, discharge from eye(s), double vision, erythema, eye pain, loss of vision or other ENT HEENT: Denies abnormal hearing, dysphagia, ear pain, epistaxis, headache(s), hearing loss, nasal congestion, nasal discharge, post nasal drip, sinus pressure, sore throat or other Cardiovascular Cardiovascular: Denies chest pain, claudication, dyspnea on exertion, edema, lightheadedness, orthopnea, palpitations, paroxysmal nocturnal dyspnea, rapid heart rate, syncope or other Respiratory/Chest Respiratory/Chest: Denies cough, dyspnea, excessive phlegm production, hemoptysis, productive cough, shortness of breath at rest, shortness of breath with exertion, wheezing or other Gastrointestinal Gastrointestinal: Denies abdominal pain, coffee ground emesis, constipation, diarrhea, dyspepsia, hematemesis, hematochezia, loose stools, melena, nausea, vomiting or other Genitourinary Genitourinary: Denies burning urination, difficulty urinating, dysuria, hematuria, nocturia, urinary frequency, urinary hesitancy, urinary incontinence, urinary urgency or other Musculoskeletal Musculoskeletal: Reports joint stiffness; Denies arthralgias, back pain, joint pain, joint swelling, myalgias, neck pain or other Neurologic Neurologic: Reports abnormal gait, focal weakness and headache(s); Denies abnormal speech, confusion, disequilibrium, dizziness, numbness, paresthesias, seizure-like activity, seizures, syncope, tingling, tremor(s) or other Psychiatric Psychiatric: Denies anxiety, depression, homicidal ideation, suicidal ideation or other Endocrine Endocrinology: Denies change in body appearance, cold intolerance, excessive sweating, heat intolerance, polydipsia, polyuria or other Hematologic/Lymphatic Hematologic/Lymphatic: Denies anemia, easy bleeding, easy bruising, lymphadenopathy or other Allergic/Immunologic Allergic/Immunologic: Denies rhinitis, hives, eczemia, asthma or other Vital Signs Vital Signs Vital Signs: 12/25/22 11:32 12/25/22 11:36 12/25/22 12:00 Temperature 97.4 F L Temperature Source Temporal Pulse Rate 94 Respiratory Rate 18 18 Respiratory Effort Normal Non-Labored Respiratory Pattern Normal Blood Pressure 159/99 H 166/90 H Blood Pressure Mean 119 115 Pulse Ox 99 Oxygen Delivery Method Room Air Weight Weight: 71.5 kg Body Mass Index (BMI) 22.0 Results Lab / Micro Data Attestation: I reviewed the patient's lab results. 12/25/22 12:30 12/25/22 12:30 Labs: Laboratory Results - last 24 hr 12/25/22 12:30: WBC 9.6, RBC 3.80 L, Hgb 11.1 L, Hct 31.8 L, MCV 83.7, MCH 29.2, MCHC 34.9, RDW Std Deviation 40.6, RDW Coeff of Wen 13.2, Plt Count 404, MPV 9.5, Immature Gran % (Auto) 0.400, Neut % (Auto) 72.5 H, Lymph % (Auto) 17.3 L, Dare % (Auto) 8.3, Eos % (Auto) 1.0, Baso % (Auto) 0.5, Absolute Neuts (auto) 7.0, Absolute Lymphs (auto) 1.66, Nucleated RBC % 0, Sodium 119 L*, Potassium 2.7 L*, Chloride 81 L, Carbon Dioxide 27.0, Anion Gap 11, BUN 8, Creatinine 0.49 L, Estim Creat Clear Calc 166.18, Est GFR (MDRD) Af Amer 224, Est GFR (MDRD) Non-Af 185, BUN/Creatinine Ratio 16.3, Glucose 100, Calcium 9.0, Total Bilirubin 0.30, AST 28, ALT 26, Alkaline Phosphatase 86, Total Protein 8.2, Albumin 3.9, Globulin 4.3 H, Albumin/Globulin Ratio 0.9, Ethyl Alcohol 63.[address] 12/25/22 12:55 IMPRESSION: Findings suggestive of a recent lacunar infarct in the left thalamus. Electronically Signed: Colin Velez MD at 13:14 EDT , Assessment & Plan Assessment/Plan (1) History of recent stroke: (2) Acute hypokalemia: (3) Alcohol abuse: (4) Acute hyponatremia: (5) Weakness: PLAN: Plan Generalized weakness -Highly suspicious that this is related to his acute on chronic hyponatremia and his profound hypokalemia on presentation -We will correct electrolyte abnormalities and have him evaluated by physical and Occupational Therapy -Consult social work/case management as patient may need placement at the time of discharge Acute hyponatremia on chronic hyponatremia -Baseline sodium appears to run between 130 and 134 -Sodium on presentation was 119 -Suspect this is predominantly related to the initiation of hydrochlorothiazide at his last discharge and further exacerbated by alcohol use -Patient was given IV fluids x1 L in the emergency department -Hold on further IV fluids for now -Discontinue HCTZ -Every 6 hours BMPs -If sodium does not correct may need further work-up -We will assess TSH in a.m. -Recommend alcohol cessation Hypokalemia -Magnesium levels normal -Patient was given 40 mill equivalents emergency department -We will give another 40 mill equivalents p.o. on the medical floor -Repeat potassium level in the a.m. Recent left thalamic infarct -Patient with some residual weakness on the left side -Was doing fairly well at home prior to the last 2 days and I suspect his acute deterioration is likely related to his electrolyte abnormalities -PT/E consultation as noted above -Case management/social work consultation for possible placement needs -Continue statin -Continue aspirin -Continue Plavix Hypertension -Discontinue HCTZ -Continue amlodipine 10 mg daily-increase losartan and to 100 mg p.o. twice daily from 50 mg -We will utilize as needed hydralazine for systolic pressure greater than 140 -Goal blood pressure at this point should be less than 130/80 -Patient may need additional medications for improved blood pressure control Hyperlipidemia -Continue statin Suspected COPD -Patient longtime smoker -As needed albuterol -Continue home guaifenesin -Recommend outpatient pulmonary medicine follow-up and PFTs GERD -Continue home PPI Tobacco abuse -Recommend cessation -Nicotine patch made available Alcohol abuse -Recommend complete cessation -Patient states he is not drinking on a daily basis and has not had withdrawal when he does not drink for an extended period of time -He has previously but this was several years ago when he was drinking much more heavily -Monitor clinically DVT prophylaxis -Enoxaparin daily CODE STATUS For full code Charges/Coding Visit Charges Inpatient E&M: 79622 Init Hosp L2
[2022-12-25] MEDS: Potassium Chloride Oral Tablet 20 MEQ 40 MEQ PO ×2 (14:21→17:59)
[2022-12-25 14:36] LABS: Magnesium 1.8 mg/dL (1.6-2.6)
--- NOTE | 2022-12-25 14:40 | NURSING ---
PCU JERI HYPONATREMIA, HYPOKALEMIA, INABILITY TO AMBULATE, RECENT STROKE
[2022-12-25] MEDS: 0.9% Normal Saline (500mL Bag) 500 ML 999 ML IV (16:09)
[2022-12-25 17:41] LABS: Anion Gap 8 (5-15); BUN 8 mg/dL (7-18); BUN/Creat Ratio 17.5 RATIO (10-20); Calcium,Total 8.9 mg/dL (8.5-10.1); Chloride 88 mmol/L (98-107); Creatinine, Serum 0.46 mg/dL (0.70-1.30); EST Glomerular Filtration Rate 201 mL/min (>60); Est Glom Filt Rate - Afr Amer 243 mL/min (>60); Estimated Creatinine Clearance 165.08 ml/min; Glucose 102 mg/dL (74-106); Potassium 3.3 mmol/L (3.5-5.1); Sodium Level 125 mmol/L (136-145)
[2022-12-25] MEDS: Atorvastatin Calcium 40 MG Tablet PO (20:37)
[2022-12-25 23:31] LABS: Anion Gap 4 (5-15); BUN 14 mg/dL (7-18); BUN/Creat Ratio 25.6 RATIO (10-20); Calcium,Total 8.8 mg/dL (8.5-10.1); Chloride 91 mmol/L (98-107); Creatinine, Serum 0.55 mg/dL (0.70-1.30); EST Glomerular Filtration Rate 164 mL/min (>60); Est Glom Filt Rate - Afr Amer 198 mL/min (>60); Estimated Creatinine Clearance 138.07 ml/min; Glucose 105 mg/dL (74-106); Potassium 3.8 mmol/L (3.5-5.1); Sodium Level 126 mmol/L (136-145)
[2022-12-26 03:35] VITALS: PULSE 84; RESP 16; O2SAT 96
[2022-12-26 04:32] LABS: Phosphorus 3.5 mg/dL (2.5-4.9)
[2022-12-26 04:36] LABS: ALB/GLOB Ratio 0.9 RATIO (0.9-2.4); AST(SGOT) 21 U/L (15-37); Alanine Aminotransfer ALT/SGPT 24 U/L (16-61); Albumin, Serum 3.2 g/dL (3.2-5.0); Alkaline Phosphatase 68 U/L (45-117); Anion Gap 6 (5-15); BUN 11 mg/dL (7-18); BUN/Creat Ratio 21.7 RATIO (10-20); Calcium,Total 8.6 mg/dL (8.5-10.1); Chloride 95 mmol/L (98-107); Creatinine, Serum 0.51 mg/dL (0.70-1.30); EST Glomerular Filtration Rate 178 mL/min (>60); Est Glom Filt Rate - Afr Amer 216 mL/min (>60); Globulin 3.5 g/dL (2.2-4.2); Glucose 99 mg/dL (74-106); Potassium 3.6 mmol/L (3.5-5.1); Protein, Total 6.7 g/dL (6.4-8.2); Sodium Level 131 mmol/L (136-145); Thyroid Stim Hormone (TSH) 1.07 uIU/mL (0.358-3.74)
[2022-12-26 05:48] VITALS: BP 148/100; PULSE 80; RESP 16; TEMP 36.6; O2SAT 94
[2022-12-26 07:53] VITALS: O2SAT 94
[2022-12-26 08:48] VITALS: PULSE 84
[2022-12-26 08:50] VITALS: BP 154/94; PULSE 90; RESP 18; TEMP 36.7; O2SAT 96
[2022-12-26] MEDS: Aspirin 81 MG TAB.CHEW PO (08:52)
[2022-12-26] MEDS: Enoxaparin 40 MG/0.4 ML Syringe SC (08:52)
[2022-12-26] MEDS: amLODIPine 10 MG Tablet PO (08:52)
[2022-12-26] MEDS: Pantoprazole Sodium 20 MG Tablet PO (08:53)
[2022-12-26] MEDS: Losartan Potassium 100 MG Tablet PO (08:53)
[2022-12-26] MEDS: Clopidogrel Bisulfate 75 MG Tablet PO (08:53)
--- NOTE | 2022-12-26 10:51 | PCM.PN.HOSP ---
Reason for Visit Reason for Visit: Diagnoses Hypo-osmolality and hyponatremia (12/25/22) Hypokalemia (12/25/22) Alcohol abuse, uncomplicated (12/25/22) Weakness (12/25/22) Personal history of transient ischemic attack (TIA), and cerebral infarction without residual deficits (12/25/22) Subjective Subjective Feels much better. Patient was very weak but since his electrolytes have been improved, he is feeling much stronger overall. Objective Data Objective Data Vital Signs: Vital Signs Temp Pulse Resp BP Pulse Ox O2 Del Method 36.7 C 90 18 154/94 H 96 Room Air 12/26/22 08:50 12/26/22 08:50 12/26/22 08:50 12/26/22 08:50 12/26/22 08:50 12/26/22 08:50 Oxygen Delivery Method Room Air Weight: 66.678 kg Body Mass Index (BMI) 20.5 Intake & Output: Intake and Output for Last 24 Hours 12/24/22 12/25/22 12/26/22 23:59 23:59 23:59 Intake Total 1239 940 / 940 Balance 1239 940 / 940 Lab / Micro Data 12/25/22 12:30 12/26/22 10:40 Labs: Laboratory Results - last 24 hr 12/25/22 12:30: WBC 9.6, RBC 3.80 L, Hgb 11.1 L, Hct 31.8 L, MCV 83.7, MCH 29.2, MCHC 34.9, RDW Std Deviation 40.6, RDW Coeff of Wen 13.2, Plt Count 404, MPV 9.5, Immature Gran % (Auto) 0.400, Neut % (Auto) 72.5 H, Lymph % (Auto) 17.3 L, [place] % (Auto) 8.3, Eos % (Auto) 1.0, Baso % (Auto) 0.5, Absolute Neuts (auto) 7.0, Absolute Lymphs (auto) 1.66, Nucleated RBC % 0, Sodium 119 L*, Potassium 2.7 L*, Chloride 81 L, Carbon Dioxide 27.0, Anion Gap 11, BUN 8, Creatinine 0.49 L, Estim Creat Clear Calc 166.18, Est GFR (MDRD) Af Amer 224, Est GFR (MDRD) Non-Af 185, BUN/Creatinine Ratio 16.3, Glucose 100, Calcium 9.0, Magnesium 1.8, Total Bilirubin 0.30, AST 28, ALT 26, Alkaline Phosphatase 86, Total Protein 8.2, Albumin 3.9, Globulin 4.3 H, Albumin/Globulin Ratio 0.9, Ethyl Alcohol 63.0 12/25/22 16:45: Sodium 125 L, Potassium 3.3 L, Chloride 88 L, Carbon Dioxide 29.0, Anion Gap 8, BUN 8, Creatinine 0.46 L, Estim Creat Clear Calc 165.08, Est GFR (MDRD) Af Amer 243, Est GFR (MDRD) Non-Af 201, BUN/Creatinine Ratio 17.5, Glucose 102, Calcium 8.9 12/25/22 22:49: Sodium 126 L, Potassium 3.8, Chloride 91 L, Carbon Dioxide 31.0, Anion Gap 4 L, BUN 14, Creatinine 0.55 L, Estim Creat Clear Calc 138.07, Est GFR (MDRD) Af Amer 198, Est GFR (MDRD) Non-Af 164, BUN/Creatinine Ratio 25.6 H, Glucose 105, Calcium 8.8 12/26/22 04:00: Sodium 131 L, Potassium 3.6, Chloride 95 L, Carbon Dioxide 30.0, Anion Gap 6, BUN 11, Creatinine 0.51 L, Estim Creat Clear Calc 148.90, Est GFR (MDRD) Af Amer 216, Est GFR (MDRD) Non-Af 178, BUN/Creatinine Ratio 21.7 H, Glucose 99, Calcium 8.6, Phosphorus 3.5, Magnesium 2.0, Total Bilirubin 0.40, AST 21, ALT 24, Alkaline Phosphatase 68, Total Protein 6.7, Albumin 3.2, Globulin 3.5, Albumin/Globulin Ratio 0.9, TSH 1.07 Radiography Diagnostic Testing: Radiology Impression Brain CT 12/25/22 12:55 IMPRESSION: Findings suggestive of a recent lacunar infarct in the left thalamus. Electronically Signed: Colin Velez MD at 13:14 EDT , Physical Exam Const alert and no apparent distress Neuro oriented x3 Sensorium / Orientation: awake Assessment & Plan Assessment/Plan (1) Acute hyponatremia: PLAN: Baseline sodium appears to run between 130 and 134 Sodium on presentation was 119, now improved to 131. 2/2 HCTZ and concomitant alcohol use. (2) Acute hypokalemia: PLAN: Improved Magnesium levels normal Patient was given 40 mill equivalents emergency department We will give another 40 mill equivalents p.o. on the medical floor (3) History of recent stroke: PLAN: Recent left thalamic infarct Patient with some residual weakness on the left side Was doing fairly well at home prior to the last 2 days and I suspect his acute deterioration is likely related to his electrolyte abnormalities Case management/social work consultation for possible placement needs Continue statin Continue aspirin Continue Plavix (4) Alcohol abuse: PLAN: Recommend complete cessation Patient states he is not drinking on a daily basis and has not had withdrawal when he does not drink for an extended period of time-He has previously but this was several years ago when he was drinking much more heavily Monitor clinically (5) Weakness: PLAN: Highly suspicious that this is related to his acute on chronic hyponatremia and his profound hypokalemia on presentation Consult social work/case management PT OT as patient may need placement at the time of discharge Patient doing much better since his sodium and potassium have been corrected. Patient has been up and ambulating. Patient wishes to continue with outpatient therapy. PLAN: Plan Chronic conditions: Hypertension-Discontinue HCTZ-Continue amlodipine 10 mg daily-increase losartan and to 100 mg p.o. twice daily from 50 mg-We will utilize as needed hydralazine for systolic pressure greater than 140-Goal blood pressure at this point should be less than 130/80 -Patient may need additional medications for improved blood pressure control Hyperlipidemia-Continue statin Suspected COPD-Patient longtime smoker-As needed albuterol-Continue home guaifenesin-Recommend outpatient pulmonary medicine follow-up and PFTs GERD-Continue home PPI Tobacco abuse-Recommend cessation-Nicotine patch made available DVT prophylaxis-Enoxaparin daily CODE STATUS For full code
[2022-12-26 11:07] LABS: Anion Gap 6 (5-15); BUN 13 mg/dL (7-18); BUN/Creat Ratio 17.8 RATIO (10-20); Calcium,Total 8.8 mg/dL (8.5-10.1); Chloride 93 mmol/L (98-107); Creatinine, Serum 0.73 mg/dL (0.70-1.30); EST Glomerular Filtration Rate 117 mL/min (>60); Est Glom Filt Rate - Afr Amer 141 mL/min (>60); Estimated Creatinine Clearance 104.03 ml/min; Glucose 154 mg/dL (74-106); Potassium 3.5 mmol/L (3.5-5.1); Sodium Level 129 mmol/L (136-145)
--- NOTE | 2022-12-26 12:15 | CASEMGMT ---
RN?CM?ASSESSMENT/re-admit note: RN?CM?to room to meet with patient for initial transition planning/care coordination?assessment.?RN?CM?introduced self and role at [facility].? Pt voices understanding and consents to?assessment?at this time.? Pt sitting up in chair in room in no distress at this time.? Pt is A/O at this time and answers all questions appropriately.?? Care providers, pharmacy, and demographics verified/updated at this time. Index admission: Admitted 12/13 d/t CVA and discharged home w/OP therapy 12/18. Pt had initially wanted to go to [facility], but was denied by insurance. Current admission: Admitted 12/25 w/severe hyponatremia, hypokalemia, and weakness. PCP: Dr Grove. Pt had an appt scheduled for yesterday, but he ended up coming into [facility]. He states he did not call and cancel that appt d/t coming to the hospital. He plans to call them to let them know what happened and to reschedule an appt. RN CM offered to assist, but pt states he will take care of it. Specialists: none Preferred Pharmacy: [facility] Insurance: [employer] Prescription Benefit:?Yes. Pt states he has been taking his medications as prescribed. Living Will/HPOA:?Pt does not currently have LW/HCPOA and would like to complete. Tita IVORY, made aware. Pt made aware if SW unable to complete AD w/him today prior to discharge, that he can contact SW as an out-pt and make appt in the future if he decides he would like to talk with someone about this or would like to utilize [facility] social work for advanced directive completion.? LNOK: Brother, Dannie. Pt also has 2 sisters: Melina and Michelle. Life partner, Andrés, is listed on pt's demographics as well. Pt states they have been together for > 25 years, but states, That's about to change. He's not willing to help me and I'm hoping he'll move out. He wouldn't even help me with getting a meal . Pt states, if Bill does not move out, then he (pt) may move out and he states most likely would go to his brother's home for awhile. Pt states he has good family support. Living Arrangements: Pt currently living w/life partner, Andrés. As stated above, either Bill or patient may be moving. Pt states he is able to manage @ home on his own and does have good family support. He has been able to bath and dress himself and is able to manage getting around the home to prepare meals and do his laundry. Transportation:?roommate was providing transportation. Pt plans to utilitize [employer] [facility] for transportation to [facility] and appts. DME: States has the following DME:?cane, walker. Pt states he has not received the robb-walker or shower chair from [employer] yet, as [employer] was out of robb-walkers and insurance approval is pending for the shower chair. He has been working w/Susie @ [employer] and plans to f/u with her today re: these items and states does not need any further assistance from CM. He has been sponge-bathing since return to home. ?Pt states no need for further DME at this time.? HHC/SNF: No hx of SNF Has had HHC in the past after a broken leg. Pt had 1st appt scheduled @ [facility] for OP therapy yesterday, but unable to go d/t coming to [facility]. He wishes to discharge home w/resumption of OP therapy @ [facility] and states he will take care of rescheduling the appt. Pt wishes to return home and states has no concerns with going home at time of discharge.? CM?to follow for any further discharge planning/needs.?Pt states he has only been smoking a few cigarettes a day since discharging from [facility] and he has been given smoking cessation information. He states he used to drink ETOH, but has not drank for a few years. He smokes marijuana 1-2 x's/month socially. Pt voices no further concerns/needs at this time.? Advised pt to ask for?CM?if any further questions/concerns/needs arise.? Voices understanding. PLAN:??Home w/OP therapy Jose BSN?RN?CM
--- NOTE | 2022-12-26 14:32 | CASEMGMT ---
SW was informed patient would like information on disability. Patient also triggered SDOH for transportation and home situation. SW met with patient. Introduced self and role at [facility]. Patient declined needing information on transportation and told SW his insurance provides transportation and [facility] van is also an option. SW asked patient about him wanting information on disability. Patient said he did his phone interview already and his next phone interview is Jan 29. SW did provide patient with [employer] [facility] [employer] [address] card and rack card for advance directives. Patient said therapy was trying to get him to go somewhere for rehab. Patient said he wants to go home, he has been doing fine. Tita Zhao PSYCHIATRIC SPECIALIST [facility]
--- NOTE | 2022-12-26 14:38 | DS.PCM_ITS ---
Providers Date of Admission: 12/25/22 Primary Care Physician: Dr. Nichole Grove MD Reason For Visit: SEVERE HYPONATAREMIA/HYPOKALEMIA/WEAKNESS Diagnosis Discharge Diagnosis (1) Acute hyponatremia: Status: Acute Code(s): E87.1 - Hypo-osmolality and hyponatremia Plan: Baseline sodium appears to run between 130 and 134 Sodium on presentation was 119, now improved to 131. 2/2 HCTZ and concomitant alcohol use. (2) Acute hypokalemia: Status: Acute Code(s): E87.6 - Hypokalemia Plan: Improved Magnesium levels normal Patient was given 40 mill equivalents emergency department We will give another 40 mill equivalents p.o. on the medical floor (3) History of recent stroke: Status: Acute Code(s): Z86.73 - Personal history of transient ischemic attack (TIA), and cerebral infarction without residual deficits Plan: Recent left thalamic infarct Patient with some residual weakness on the left side Was doing fairly well at home prior to the last 2 days and I suspect his acute deterioration is likely related to his electrolyte abnormalities Case management/social work consultation for possible placement needs Continue statin Continue aspirin Continue Plavix (4) Alcohol abuse: Status: Acute Code(s): F10.10 - Alcohol abuse, uncomplicated Plan: Recommend complete cessation Patient states he is not drinking on a daily basis and has not had withdrawal when he does not drink for an extended period of time-He has previously but this was several years ago when he was drinking much more heavily Monitor clinically (5) Weakness: Status: Acute Code(s): R53.1 - Weakness Plan: Highly suspicious that this is related to his acute on chronic hyponatremia and his profound hypokalemia on presentation Consult social work/case management PT OT as patient may need placement at the time of discharge Patient doing much better since his sodium and potassium have been corrected. Patient has been up and ambulating. Patient wishes to continue with outpatient therapy. Plan Chronic conditions: * Hypertension-Discontinue HCTZ-Continue amlodipine 10 mg daily-increase losartan and to 100 mg p.o. twice daily from 50 mg-We will utilize as needed hydralazine for systolic pressure greater than 140-Goal blood pressure at this point should be less than 130/80 -Patient may need additional medications for improved blood pressure control * Hyperlipidemia-Continue statin * Suspected COPD-Patient longtime smoker-As needed albuterol-Continue home guaifenesin-Recommend outpatient pulmonary medicine follow-up and PFTs * GERD-Continue home PPI * Tobacco abuse-Recommend cessation-Nicotine patch made available DVT prophylaxis-Enoxaparin daily CODE STATUS For full code Medications at Discharge Home Medications guaifenesin 1,200 mg tablet, extended release 12 hr (Mucinex) 1,200 mg PO Q12H PRN CONGESTION 12/13/22 amlodipine 10 mg tablet 10 mg PO DAILY BLOOD PRESSURE #30 tabs 12/18/22 aspirin 81 mg chewable tablet 81 mg PO BREAKFAST HEART HEALTH #30 tabs 12/18/22 atorvastatin 40 mg tablet 40 mg PO QHS CHOLESTEROL #30 tabs 12/18/22 clopidogrel 75 mg tablet 75 mg PO DAILY BLOOD THINNER #3 tabs 12/18/22 losartan 50 mg tablet 50 mg PO DAILY BLOOD PRESSURE 12/25/22 omeprazole 10 mg capsule,delayed release 10 mg PO DAILY ACID REFLUX 12/25/22 Hospital Course Operations None Procedures None Summary of Care Provided Minutes Spent on Discharge: 32 Hospital Course: Patient presents with weakness. Is likely due to hyponatremia as well as hypokalemia. His sodium on admission was 119 his potassium was 2.7. That was likely due to use of hydrochlorothiazide. Patient did receive replacements for his sodium as well as potassium. Patient will discontinue the hydrochlorothiazide moving forward. Patient strength weinstein is doing much better and will go back home and continue with outpatient therapy. Patient improved much faster than anticipated. Patient be discharged home. Weight / BMI Weight Weight: 66.678 kg Body Mass Index (BMI) 20.5 ABG / Lab / Microbiology Data 12/25/22 12:30 12/26/22 10:40 Laboratory: Laboratory Results - last 24 hr 12/25/22 16:45: Sodium 125 L, Potassium 3.3 L, Chloride 88 L, Carbon Dioxide 29.0, Anion Gap 8, BUN 8, Creatinine 0.46 L, Estim Creat Clear Calc 165.08, Est GFR (MDRD) Af Amer 243, Est GFR (MDRD) Non-Af 201, BUN/Creatinine Ratio 17.5, Glucose 102, Calcium 8.9 12/25/22 22:49: Sodium 126 L, Potassium 3.8, Chloride 91 L, Carbon Dioxide 31.0, Anion Gap 4 L, BUN 14, Creatinine 0.55 L, Estim Creat Clear Calc 138.07, Est GFR (MDRD) Af Amer 198, Est GFR (MDRD) Non-Af 164, BUN/Creatinine Ratio 25.6 H, Glucose 105, Calcium 8.8 12/26/22 04:00: Sodium 131 L, Potassium 3.6, Chloride 95 L, Carbon Dioxide 30.0, Anion Gap 6, BUN 11, Creatinine 0.51 L, Estim Creat Clear Calc 148.90, Est GFR (MDRD) Af Amer 216, Est GFR (MDRD) Non-Af 178, BUN/Creatinine Ratio 21.7 H, Glucose 99, Calcium 8.6, Phosphorus 3.5, Magnesium 2.0, Total Bilirubin 0.40, AST 21, ALT 24, Alkaline Phosphatase 68, Total Protein 6.7, Albumin 3.2, Globulin 3.5, Albumin/Globulin Ratio 0.9, TSH 1.07 12/26/22 10:40: Sodium 129 L, Potassium 3.5, Chloride 93 L, Carbon Dioxide 30.0, Anion Gap 6, BUN 13, Creatinine 0.73, Estim Creat Clear Calc 104.03, Est GFR (MDRD) Af Amer 141, Est GFR (MDRD) Non-Af 117, BUN/Creatinine Ratio 17.8, Glucose 154 H, Calcium 8.8 D/C Instructions Discharge Diet: Low fat / Low cholesterol Meaningful Use Info Meaningful Use Diagnoses (Choose all that apply): None applicable Discharge Plan Admission Admit Date/Time: 12/25/22 14:09 Primary Reason for Your Visit: Hyponatremia and hypokalemia. Attending Provider: Diaz Pham Primary Care Provider: Nichole Grove Consulting Providers: Eladia Mcghee Instructions Additional Instructions / Restrictions: You presented with very low sodium and potassium level. These were corrected with replacement. You were likely depleted due to the use of hydrochlorothiazide. We will discontinue hydrochlorothiazide moving forward. Do recommend that you follow-up with your primary care doctor to have some routine lab work. Please continue to follow-up with outpatient therapy for your stroke. Discharge Orders/Prescriptions Prescriptions: Continued guaifenesin [Mucinex] 1,200 mg tablet extended release 12hr 1,200 mg PO Q12H PRN (Reason: CONGESTION) atorvastatin 40 mg Tablet 40 mg PO QHS Qty: 30 2RF clopidogrel 75 mg Tablet 75 mg PO DAILY Qty: 3 2RF amlodipine 10 mg Tablet 10 mg PO DAILY Qty: 30 2RF aspirin 81 mg Tablet,Chewable 81 mg PO BREAKFAST Qty: 30 2RF losartan 50 mg tablet 50 mg PO DAILY omeprazole 10 mg capsule,delayed release(DR/EC) 10 mg PO DAILY Discontinued hydrochlorothiazide 25 mg Tablet 25 mg PO DAILY Qty: 30 2RF Referrals / Follow Up: [facility] [Provider Group] - Within 3 Months Nichole Grove MD [Primary Care Provider] - Within 2 Weeks Disposition Disposition (needs filled in before D/C Order can be placed): Home, Self Care Charges/Coding Visit Charges Inpatient E&M: 92172 Disch Hosp >30min
[2022-12-26 15:03] VITALS: BP 119/81; PULSE 89; RESP 18; TEMP 37; O2SAT 98
--- OUTSIDE RECORDS SUMMARY | 2023-03-24 09:27 | XMS RPT_ITS | CCD ---
Author Name Unknown Address [address] [place] [address] Organization [facility] Clinical Note 12-15-2020 Note Date & Type Note Facility 12-15-2020 Note Patient Outreach (NE TNAV) DENISESANTOAMYNICOLE Jennifer ([id number]) 1965 M Date Time Provider Department 12/15/20 ANSELMO CASPER (PSS) PARESH During your visit today, we recorded the following information about you: Anselmo Casper Pss 12/15/2020 3:07 PM Addendum POPULATION HEALTH NAVIGATION OUTREACH Action/ Colorectal Cancer Screening (left VM, sent MYC msg) Update - scheduled pt for a colonoscopy consult w/Hailey Mercado in [place] using DDQ Contact made with patient or family member? NO Pt identified by name and : NO Outreach Outcome/Action Unable to reach patient: Left message MyChart message sent Reason for Outreach Care Gap or Scheduling/Wellness visits Payer: Payor: [employer] [place] MEDICAID / Plan: [email or web address] MEDICAID / Product Type: Medicaid / Care Gap Reviewed:: Colorectal Cancer Screening Reminder: Reminder note to check Health Maintenance for items below Health Maintenance items due: COVID-19 VACCINE(1) Never done BP CONTROLLED (<130/80) Never done DTAP,TDAP,TD(1 - Tdap) Never done ONE PNEUMOVAX PRIOR TO AGE 65 Never done SHINGRIX VACCINE(1 of 2) Never done COLORECTAL CANCER SCREENING due on 03/13/2019 DEPRESSION SCREENING due on 08/28/2019 ANNUAL PCP TEAM CHRONIC DISEASE VISIT due on 07/04/2020 INFLUENZA(1) due on 11/01/2020 Advanced Directives Completed: Have you ever planned for future healthcare decisions with a power of access developer, living will, or advance directives? Referrals: Message Sent to Practice: NO Navigation Signature: Anselmo Howard Kent December 15, 2020 9:14 AM Allergies As of Date: 12/15/2020 Noted Allergy Reaction KRUPA INHIBITORS 05/03/2013 7 - Swelling Comments: angioedema CODEINE 03/14/2010 5 - Intolerance LISINOPRIL 05/14/2013 10 - Anaphylaxis Date Reviewed: 08/27/2018 Reviewed by: Ariel Key LPN - Fully Assessed Reason for Visit: Population Health Navigation Outreach [3910] Cmt: Colorectal Cancer Screening, scheduling Prescriptions as of 12/15/2020 - pantoprazole DR (PROTONIX) 40 mg tablet TAKE 1 TABLET BY MOUTH EVERY DAY 30 minutes before meal on an empty stomach - losartan (COZAAR) 50 mg tablet Take 1 tablet by mouth once daily. - amLODIPine (NORVASC) 10 mg tablet Take 1 tablet by mouth once daily. - aspirin 81 mg chewable tablet Take 1 tablet by mouth twice daily. - meloxicam (MOBIC) 7.5 mg tablet Take 1 tablet by mouth once daily. With food. - gabapentin (NEURONTIN) 300 mg capsule Take 1 capsule by mouth three times daily as needed for up to 30 days. 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 Author Type: ? Type: Progress Notes Filed: 12/15/2020 3:07 PM Note Text: POPULATION HEALTH NAVIGATION OUTREACH Action/ Colorectal Cancer Screening (left VM, sent MYC msg) Update - scheduled pt for a colonoscopy consult w/Hailey Mercado in [place] using DDQ Contact made with patient or family member? NO Pt identified by name and : NO Outreach Outcome/Action Unable to reach patient: Left message GreenCage Securityhart message sent Reason for Outreach Care Gap or Scheduling/Wellness visits Payer: Payor: [employer] [place] MEDICAID / Plan: [email or web address] MEDICAID / Product Type: Medicaid / Care Gap Reviewed:: Colorectal Cancer Screening Reminder: Reminder note to check Health Maintenance for items below Health Maintenance items due: COVID-19 VACCINE(1) Never done BP CONTROLLED (<130/80) Never done DTAP,TDAP,TD(1 - Tdap) Never done ONE PNEUMOVAX PRIOR TO AGE 65 Never done SHINGRIX VACCINE(1 of 2) Never done COLORECTAL CANCER SCREENING due on 03/13/2019 DEPRESSION SCREENING due on 08/28/2019 ANNUAL PCP TEAM CHRONIC DISEASE VISIT due on 07/04/2020 INFLUENZA(1) due on 11/01/2020 Advanced Directives Completed: Have you ever planned for future healthcare decisions with a power of access developer, living will, or advance directives? Referrals: Message Sent to Practice: NO Navigation Signature: Anselmo Kent December 15, 2020 9:14 AM [facility] Clinical Note 06-07-2020 Note Date & Type Note Facility 06-07-2020 Note Patient Outreach (FA MPWS) SAGARNICOLE Jennifer ([id number]) 1965 M Date Time Provider Department 06/07/20 CECELIA CONNELL) GARRETT During your visit today, we recorded the following information about you: Cecelia [facility] 06/07/2020 10:00 AM Signed POPULATION HEALTH NAVIGATION OUTREACH Action/FYI A-STARhart message sent to patient Contact made with patient or family member? YES Pt identified by name and : YES Outreach Outcome/Action MyChart message sent Health Maintenance items due: BP CONTROLLED (<130/80) Completed DTAP,TDAP,TD(1 - Tdap) Completed ONE PNEUMOVAX PRIOR TO AGE 65 Completed SHINGRIX VACCINE(1 of 2) Completed COLORECTAL CANCER SCREENING due on 03/13/2019 DEPRESSION SCREENING due on 08/28/2019 Message Sent to Practice: NO Navigation Signature: Ceceliaholden [facility] June 07, 2020 9:59 AM Allergies As of Date: 06/07/2020 Noted Allergy Reaction KRUPA INHIBITORS 05/03/2013 7 - Swelling Comments: angioedema CODEINE 03/14/2010 5 - Intolerance LISINOPRIL 05/14/2013 10 - Anaphylaxis Date Reviewed: 08/27/2018 Reviewed by: Ariel Key LPN - Fully Assessed Reason for Visit: PHMA/Care Gap Outreach [7093] Prescriptions as of 06/07/2020 Sig: PANTOPRAZOLE 40 MG TABLET,DEL* Take 1 tablet by mouth daily * LOSARTAN 50 MG TABLET Take 1 tablet by mouth once d* AMLODIPINE 10 MG TABLET Take 1 tablet by mouth once d* ASPIRIN 81 MG CHEWABLE TABLET Take 1 tablet by mouth twice * MELOXICAM 7.5 MG TABLET Take 1 tablet by mouth once d* GABAPENTIN 300 MG CAPSULE Take 1 capsule by mouth three* VALACYCLOVIR 1 GRAM TABLET take 2 tablets by mouth initi* SILDENAFIL 50 MG TABLET daily as needed Problem List As Of Date 06/07/2020 Noted Resolved Essential hypertension, benign [I10] 03/27/2010 Tobacco abuse [Z72.0] 03/27/2010 Lateral epicondylitis [M77.10] 03/27/2010 01/30/2015 Lumbar disc disease with radiculopathy [M51.16] 04/13/2012 04/15/2016 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 Author Type: ? Type: Progress Notes Filed: 06/07/2020 10:00 AM Note Text: POPULATION HEALTH NAVIGATION OUTREACH Action/FYI mychart message sent to patient Contact made with patient or family member? YES Pt identified by name and : YES Outreach Outcome/Action MyChart message sent Health Maintenance items due: BP CONTROLLED (<130/80) Completed DTAP,TDAP,TD(1 - Tdap) Completed ONE PNEUMOVAX PRIOR TO AGE 65 Completed SHINGRIX VACCINE(1 of 2) Completed COLORECTAL CANCER SCREENING due on 03/13/2019 DEPRESSION SCREENING due on 08/28/2019 Message Sent to Practice: NO Navigation Signature: Cecelia Connell Cma June 07, 2020 9:59 AM [facility] Summary Purpose Family History No Family History Records Found Advance Directives No Advanced Directives Records Found Additional Source Comments (unrecognized sect ion and content) No Status Records Found INFORMATION SOURCE (unrecogn ized section and content) FOR RECORDS PERTAINING TO PATIENTS WHO ARE OR HAVE BEEN ENROLLED IN A CHEMICAL DEPENDENCY/SUBSTANCEABUSE PROGRAM, SOME INFORMATION MAY BE OMITTED. This clinical summary was aggregated from multiple sources. Caution should be exercised in using it in the provision of clinical care. This summary normalizes information from multiple sources, and as a consequence, information in this document may materially change the coding, format and clinical context of patient data. In addition, data may be omitted in some cases. CLINICAL DECISIONS SHOULD BE BASED ON THE PRIMARY CLINICAL RECORDS. [facility]. provides no warranty or guarantee of the accuracy or completeness of information in this document.
== END 2022-12-26 16:26 | disposition home or self-care (01) | DRG 426 ==
LOC: ED 14:14 → PCU 12-26 07:07
PROVIDERS: Admitting Provider Internal Medicine; Emergency Provider Emergency Medicine; PCP Internal Medicine
DX: E87.1 Hypo-osmolality and hyponatremia (principal); I69.354 Hemiplegia and hemiparesis following cerebral infarction affecting left non-dominant side; J44.9 Chronic obstructive pulmonary disease, unspecified; I10 Essential (primary) hypertension; D64.9 Anemia, unspecified; F10.10 Alcohol abuse, uncomplicated; E87.6 Hypokalemia; E78.5 Hyperlipidemia, unspecified; K21.9 Gastro-esophageal reflux disease without esophagitis; R26.2 Difficulty in walking, not elsewhere classified; Z79.82 Long term (current) use of aspirin; Z79.02 Long term (current) use of antithrombotics/antiplatelets; Y90.3 Blood alcohol level of 60-79 mg/100 ml; F17.210 Nicotine dependence, cigarettes, uncomplicated; Z79.899 Other long term (current) drug therapy
CPT/HCPCS: 36415; 70450; 80048; 80053; 80320; 83735; 84100; 84443; 85025; 93005; 94668; 96360; 96361; 96372; 97162; 97166; 99221; 99285; J7040; A4216; G0378; G0480

== ENCOUNTER 2023-04-21 10:30 | Outpatient (RCR) | payer MEDICAID, SELFPAY ==
--- NOTE | 2023-01-14 13:58 | HP.PTEVAL ---
Patient's Visit Information Visit Information Visit Information: NICOLE KEITH is a 57 year old M referred to Physical Therapy by Dr. Asia Tate MD with a diagnosis of CVA and L scaphoid Fx. Date of Evaluation: 01/14/23 Physical Therapist: UTE Del Angel Visit Plan Frequency: 2-3x /Week Duration: 2 Months Plan: 2-3X/ week for 8 weeks for gait training, L LE strength, functional balance, balance, stairs, curb steps, with HEP Teach pt how to do a curb step with his cane. He will bring it next visit. Subjective Subjective: Pt had a stroke on FridayDec 13. His sx started the previous day. He was taking a nap and woke up with a nevaeh horse in his L calf and noticed that afternoon he was having trouble walking. The next morning it started to affect his L arm and slight loss of control. By 5 am he realized he was having a stroke. He went to get a class of water and lift with his L arm and lost control. He called the squad. It was too late for rapid meds. He was in the hospital for 5 days. He did have to go back overnight because he had a problem with sodium and potassium and was a metabolic imbalance and was discharged the next afternoon. He is struggling currently with walking in general but it is improving very quickly. He has not used the walker in his home for the last 4 days in his home. He brought the walker today due to it being a longer distance and out his door he has a few steps to leave his house and his driveway is not smooth. He was fatigued walking back to treatment room and little less balanced. He is off work for now but no RTW date as of yet. 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 He is currently not driving. Bed and bath are on one floor. No falls. Pt has a L schapoid Fx and they recommended a robb walker but does not use it. Pt has a little dizziness when he is moving and that is a new sx since the stroke Pain L elbow pain: Pain Intensity (Out of 10): 1 Objective Objective: Gait: Walks with decreased stride length, increase R hip flex 12.4 and L hip flex 6.3# R knee ext 12.2 and L 5.6 R knee flex 11 and L 8,8 R hip abd 12 and L 5.6 Pt has decreased L Foot DF strength Slightly decreased L LE proprioception Tinetti 10 Sit to stand: pt is able to get up with increase LOB without the use of his arms and decreased initial balance. Pt does better using his arms and more controlled motion Stairs: up and down recip with 2 hand rails with decreased ability to kick L leg out to clear the step. Does kick the step with the L foot ascending the stairs twice but caught self Balance/Special Test Scores % Disability: 100 Tinetti Balance Score: 7 Tinetti Gait Score: 3 Tinetti Balance & Gait Score: 10 Lower Extremity Functional Score: 26 Goals Goal 1:: I HEP Goal Time Frame: 6-8 Weeks Goal 2:: Walk entire dept X 2 with no restrictive device and no LOB or veering Goal Time Frame: 6-8 Weeks Goal 3:: Test FGA when able. Goal Time Frame: 2-4 Weeks Goal 4:: Be able to go up an down a curb step X 5 in a row with least restrictive device with no LBO Goal Time Frame: 6-8 Weeks Goal 5:: Increase LE strength (at the time of the eval: R hip flex 12.4 and L hip flex 6.3# R knee ext 12.2 and L 5.6 R knee flex 11 and L 8,8 R hip abd 12 and L 5.6 Pt has decreased L Foot DF strength) Goal Time Frame: 6-8 Weeks Rehabilitation Potential Rehabilitation Potential: Good Anticipated Interventions Patient/Client Instruction: Educate patient on: Condition and Plan of Care For the Purpose of:: To improve nutrient delivery to tissue, To improve muscle performance and motor function, To improve ability to perform ADL's, To increase tolerance to activity/condition/position, To improve performance and independence with ADL's, To decrease level of supervision to perform tasks, To improve ability of physical actions for home/community/work/leisure, To improve gait and locomotor functions, To improve health of tissue, To improve endurance, To improve balance and To improve safety with gait Therapeutic Exercise to Include: Strength training, Endurance training, Balance training, Postural training, Flexibilty training, Gait and locomotor training, Neuromotor development, Active ROM and Dynamic Lumbar Stabilization For the Purpose of:: To improve muscle performance and motor function, To improve ability to perform ADL's, To increase tolerance to activity/condition/position, To improve performance and independence with ADL's, To decrease level of supervision to perform tasks, To improve ability of physical actions for home/community/work/leisure, To improve gait and locomotor functions, To improve health of tissue, To increase flexibility/ROM, To improve endurance, To improve balance and To improve safety with gait Functional Training to Include: Gait training For the Purpose of:: To improve gait and locomotor functions and To improve safety with gait Text: Thank you for the opportunity to evaluate your patient. For Medicare and Medicare HMO plans, please review the plan of care and approve it. It will need to be FAXED BACK to us at [phone] for Medicare purposes. For Medicare only, by signing this I certify the plan of care. Please let me know if there are questions or concerns regarding this plan of care. Physician Signature: Date:
--- NOTE | 2023-01-14 14:51 | HP.OTEVAL ---
Patient's Visit Information Visit Information Visit Information: NICOLE KEITH is a 57 year old M, referred to Occupational Therapy by Dr. Asia Tate MD, with a diagnosis of CVA left UE weakness. Date of Evaluation: 01/14/23 Occupational Therapist: DEEDEE Corral/Ervin, CHT Subjective Subjective: This 57 year old male was seen for OT eval with dx of CVA- symptoms started on 12/12/22. pt states he went to ER next morning 12/13/22. 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 ADLs Comments: pt lives alone pt has 3 steps to enter home PLOF was IND with bathing/dressing Vazquez on 1st floor no entry steps ambulation with ww and shower chair. pt has friend to assist with daily tasks Pain left elbow: Current Pain Intensity: 3 Pain Intensity Range: 0 and 4 ROM ROM Comments: pt demo with bilateral UE ROM WNL Strength Shoulder: right shoulder flex 17# left 9# extension right 283 left 15# Elbow: right biceps 27.3# left 15# triceps 23# left 16# Model [employer] Person: right 90# left 30# Lateral Pinch: right 20# left 8# Tripod Pinch: right 16# left 10# Strength Comments: pt demo with decrease in dominate left side strength Sensation Sensation Comments: feels heavy Nine Hole Peg Right: right 21.65 sec. Left: left 58 sec. Quick DASH-Disab of Arm,Shoulder& Hand Quick DASH Score: 71.6650 Goals Goal:: pt will demo a increase in left UB strength demo by Fet2 peak force testing increase by 10# grossly throughout by d/c to increase pts ind. with ADLs and IADls. pt will demo a increase in left cesspool cleaner strength to 75# or greater to increase pts ind. with ADLs and IADls by dc pt will demo a increase in left lateral and tripod pinch by 4# to increase pts ind. with ADls and IADls by d/c Goal:: pt will report increase left UE coordination to brush teeth with left UE IN by d,c pt will demo a the ability to complete 9 hole peg testing to less than 35 sec demo increase in FMS by d/c pt will demo the ability to use left UE to place items on a variety of heights with 90% accuracy to increase pt ind.with ADls Goal:: pt will report IND with IADls as washing dishes- cleaning- and grocery shopping by louise Rehabilitation General Assessment: pt demo with dominate left UE weakness, decrease in motor control and Fine motor deficits. this limits pt with all ADLs and IADls. pt demo need for skilled OT services 2-3x week for 8 weeks to increase left UE strength and control to return to his PLOF. Rehabilitation Potential: Good Anticipated Interventions Anticipated Interventions: A/AAROM/PROM, Strengthening, Ergonomic Education, Fine Motor Coord/Jim, Neuro Reeducation, ADL Training, Education re assistive Equipment, Education re Diagnosis and Home Program Visit Plan Frequency: 2-3x /Week Duration: 2 Months TEXT: Thank you for the opportunity to evaluate your patient. For Medicare and Medicare HMO plans, please review the plan of care and approve it. It will need to be FAXED BACK to us at [phone] for Medicare purposes. Please let me know if there are questions or concerns regarding this plan of care. Physician Signature: Date:
--- NOTE | 2023-03-24 11:30 | HP.PTREVAL_ITS ---
Re-Evaluation Intro: Dr. Asia Tate MD, It has been my pleasure to treat NICOLE KEITH over the last 6 visits for CVA and L scaphoid Fx. Please see the progress note below for an update on the physical therapy plan of care! Subjective Subjective: Pt was sick all January. He feels that he is somewhat better. He uses the cane for steps and curb steps. He feels like it is due to his balance and fear. He does not use the cane at all in his home. He almost did not bring his cane today because he holds the cane instead of using it. He wants to improve his balance. He is afraid of falling. Objective Objective/Function: R hip flex 18.1 and L hip flex 15.3 R knee ext 20.8 and L 20.6 R knee flex 14.7 and L 14.1 R hip abd 12 and L 5.6 R DF 19.3 and L 18.3 Curb Steps: he struggles with eccentric control on the L descending the step and makes his balance off Stairs: up and down recip with 1 hand rail with some struggle descending the step FGA; 19 Plan Plan Plan: 2-3X/ week for 8 weeks for gait training, L LE strength, functional balance, balance, stairs, curb steps, with HEP Teach pt how to do a curb step with his cane. He will bring it next visit. Balance/Gait/Functional tests Balance/Special Test Scores Functional Gait Assessment Score: 19 % Disability: 36.6700 Tinetti Balance Score: 7 Tinetti Gait Score: 3 Tinetti Balance & Gait Score: 10 Lower Extremity Functional Score: 36 Goals Goals Goal 1:: I HEP Goal Time Frame: 6-8 Weeks Goal 2:: Walk entire dept X 2 with no restrictive device and no LOB or veering Goal Time Frame: 6-8 Weeks Goal 3:: Increase balance (score was 16 at re-eval) Goal Time Frame: 2-4 Weeks Goal 4:: Be able to go up an down a curb step X 5 in a row with least rest rictive device with no LBO Goal Time Frame: 6-8 Weeks Goal 5:: Increase LE strength (at the time of the eval: R hip flex 12.4 and L hip flex 6.3# R knee ext 12.2 and L 5.6 R knee flex 11 and L 8,8 R hip abd 12 and L 5.6 Pt has decreased L Foot DF strength) Goal Time Frame: 6-8 Weeks Goal Progress: Goal Met Anticipated Interventions Anticipated Interventions Patient/Client Instruction: Educate patient on: Condition and Plan of Care For the Purpose of:: To improve nutrient delivery to tissue, To improve muscle performance and motor function, To improve ability to perform ADL's, To increase tolerance to activity/condition/position, To improve performance and independence with ADL's, To decrease level of supervision to perform tasks, To improve ability of physical actions for home/community/work/leisure, To improve gait and locomotor functions, To improve health of tissue, To improve endurance, To improve balance and To improve safety with gait Therapeutic Exercise to Include: Strength training, Endurance training, Balance training, Postural training, Flexibilty training, Gait and locomotor training, Neuromotor development, Active ROM and Dynamic Lumbar Stabilization For the Purpose of:: To improve muscle performance and motor function, To improve ability to perform ADL's, To increase tolerance to activity/condition/position, To improve performance and independence with ADL's, To decrease level of supervision to perform tasks, To improve ability of physical actions for home/community/work/leisure, To improve gait and locomotor functions, To improve health of tissue, To increase flexibility/ROM, To improve endurance, To improve balance and To improve safety with gait Functional Training to Include: Gait training For the Purpose of:: To improve gait and locomotor functions and To improve safety with gait Re-Evaluation Ending Re-evaluation ending: Please do not hesitate to contact me at [phone] by phone or if you have questions or concerns regarding this new plan of care! Sincerely, Danni Dixon, MPT
--- NOTE | 2023-03-24 14:35 | HP.OTREVAL ---
Re-Evaluation Intro: Dr. Asia Tate MD, It has been my pleasure to treat NICOLE KEITH over the last 5 visits for CVA left UE weakness. Please see the progress note below for an update on the occupational therapy plan of care! Subjective Subjective: pt arrives to OT following a month of a upper respitory infection pt states he has been shaving with left hand pt states he started cooking with left hand still has difficulty with motor control of left UE for safe work/use with ADLs. 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 a decrease from 58. sec shoulder flexion 10# increase from 9# biceps 23lbs increase from 15# triceps 20# a increase from 16# pt continues to demo a left UE/hand weakness limiting pts IND with ADLs and IADls. pt would benefit from skilled OT services 2x 8 weeks to improve pts left UE motor control- strength and returning pt to his PLOF. Plan Plan Frequency: 2-3x /Week Duration: 2 Months Visits in this POC: 2 months (2-3x week) Plan: Cont to strength and increase FMS 2x a week for 8 weeks Goals Goals Patient Goals: Regain Mobility, Regain Strength, Improve Fine Motor Skills, Use Hand/Wrist/Arm Normally Again, Be More Independent in ADLS and Resume Former Household Responsibilities (Cooking,Cleaning,Yard, etc.) Goal:: pt will demo a increase in left UB strength demo by Fet2 peak force testing increase by 10# grossly throughout by d/c to increase pts ind. with ADLs and IADls. pt will demo a increase in left grounds restoration specialist strength to 75# or greater to increase pts ind. with ADLs and IADls by dc pt will demo a increase in left lateral and tripod pinch by 4# to increase pts ind. with ADls and IADls by d/c Goal:: pt will report increase left UE coordination to brush teeth with left UE IN by d,c pt will demo a the ability to complete 9 hole peg testing to less than 25 sec demo increase in FMS by d/c pt will demo the ability to use left UE to place items on a variety of heights with 90% accuracy with use of a variety of wts. 8-10# to increase pt ind.with ADls Goal:: pt will report IND with IADls as washing dishes- cleaning- and grocery shopping by kayac ( progressing at modified level) Anticipated Interventions Anticipated Interventions Anticipated Interventions: A/AAROM/PROM, Strengthening, Ergonomic Education, Fine Motor Coord/Jim, Neuro Reeducation, ADL Training, Education re assistive Equipment, Education re Diagnosis and Home Program Re-Evaluation Ending Re-evaluation ending: Please do not hesitate to contact me at [phone] by phone or if you have questions or concerns regarding this new plan of care! Sincerely, Meghan Suarez, OTR/L, CHT
--- NOTE | 2023-06-17 07:25 | HP.PT.NRP ---
Patient Information Patient Information: NICOLE KEITH was seen in my office for initial evaluation on 01/14/23. The following Plan of Care was established for this patient: POC Established Initial Frequency: 2-3x /Week Initial Duration: 2 Months Anticipated Interventions Patient/Client Instruction: Educate patient on: Condition and Plan of Care For the Purpose of:: To improve nutrient delivery to tissue, To improve muscle performance and motor function, To improve ability to perform ADL's, To increase tolerance to activity/condition/position, To improve performance and independence with ADL's, To decrease level of supervision to perform tasks, To improve ability of physical actions for home/community/work/leisure, To improve gait and locomotor functions, To improve health of tissue, To improve endurance, To improve balance and To improve safety with gait Therapeutic Exercise to Include: Strength training, Endurance training, Balance training, Postural training, Flexibilty training, Gait and locomotor training, Neuromotor development, Active ROM and Dynamic Lumbar Stabilization For the Purpose of:: To improve muscle performance and motor function, To improve ability to perform ADL's, To increase tolerance to activity/condition/position, To improve performance and independence with ADL's, To decrease level of supervision to perform tasks, To improve ability of physical actions for home/community/work/leisure, To improve gait and locomotor functions, To improve health of tissue, To increase flexibility/ROM, To improve endurance, To improve balance and To improve safety with gait Functional Training to Include: Gait training For the Purpose of:: To improve gait and locomotor functions and To improve safety with gait Last Seen Last Seen: This patient was last seen in our office 04/21/23. Pertinent comments regarding their Physical therapy will appear below: [facility] At this point I will be discontinuing this patient from physical therapy. I would be happy to see this patient again in the future if found appropriate by the physician. Thank you! Danni Dixon, MPT Balance/Gait/Functional tests Balance/Special Test Scores Functional Gait Assessment Score: 19 % Disability: 36.6700 Tinetti Balance Score: 7 Tinetti Gait Score: 3 Tinetti Balance & Gait Score: 10 Lower Extremity Functional Score: 36
== END 2023-04-21 19:00 | disposition home or self-care (01) ==
LOC: PT 10:30
PROVIDERS: PCP Internal Medicine; Visit Provider Student in an Organized Health Care Education/Training Program
DX: S62.009D Unspecified fracture of navicular [scaphoid] bone of unspecified wrist, subsequent encounter for fracture with routine healing (principal); Z86.73 Personal history of transient ischemic attack (TIA), and cerebral infarction without residual deficits
CPT/HCPCS: 97110; 97112; 97161; 97166; 97530

== ENCOUNTER → 2023-04-24 | Outpatient (CLI) | payer MEDICAID, SELFPAY ==
[2023-04-24 16:50] LABS: Absolute Lymphocyte Count 1.69 X10^3/uL (0.83-4.51); Absolute Neutrophil Count 7.3 X10^3/uL (2.0-7.7); Basophil# 0.08 X10^3/uL; Basophil% 0.8 % (0-1); Eosinophil# 0.08 X10^3/uL; Eosinophils% 0.8 % (0-5); Hematocrit 33.8 % (40-54); Hemoglobin 11.1 g/dL (13.0-16.5); Lymphocyte # 1.69 X10^3/ul (0.83-4.51); Lymphocyte % 16.7 % (19-41); Mean Corp Hgb Conc 32.8 g/dL (32-36); Mean Corpuscular Hgb 24.8 pg (27.0-32.0); Mean Corpuscular Volume 75.6 fL (80-94); Mean Platelet Vol. 10.1 fl (6.2-12.0); Monocyte# 0.93 X10^3/uL; Monocyte% 9.2 % (0-10); NRBC Flagged by Analyzer 0 % (0-5); Neutrophil # 7.29 X10^3/uL (2.7-7.7); Platelet Count 365 K/mm3 (150-450); RBC Distribution Width CV 17.3 % (11.6-14.6); RBC Distribution Width SD 47.2 fl (35.1-43.9); Red Blood Count 4.47 M/mm3 (4.6-6.2); White Blood Count 10.1 K/mm3 (4.4-11.0)
[2023-04-24 17:17] LABS: AST(SGOT) 39 U/L (15-37); Alanine Aminotransfer ALT/SGPT 23 U/L (16-61); Albumin, Serum 4.2 g/dL (3.2-5.0); Alkaline Phosphatase 101 U/L (45-117); Anion Gap 4 (5-15); BUN 11 mg/dL (7-18); BUN/Creat Ratio 13.2 RATIO (10-20); Calcium,Total 9.5 mg/dL (8.5-10.1); Chloride 99 mmol/L (98-107); Creatinine, Serum 0.83 mg/dL (0.70-1.30); EST Glomerular Filtration Rate 101 mL/min (>60); Est Glom Filt Rate - Afr Amer 122 mL/min (>60); Globulin 4.2 g/dL (2.2-4.2); Glucose 118 mg/dL (74-106); PSA,Total - Annual Screen 0.35 ng/mL (0.00-4.00); Potassium 4.4 mmol/L (3.5-5.1); Protein, Total 8.4 g/dL (6.4-8.2); Sodium Level 131 mmol/L (136-145); Thyroid Stim Hormone (TSH) 2.01 uIU/mL (0.358-3.74)
[2023-04-24 18:07] LABS: Vitamin D,25 Hydroxy 12.8 ng/mL
--- OUTSIDE RECORDS SUMMARY | 2023-04-24 18:42 | XMS RPT_ITS | CCD ---
Author Name Unknown Address [address] [place] [address] Organization [facility] Clinical Note 12-15-2020 Note Date & Type Note Facility 12-15-2020 Note Patient Outreach (NE TNAV) DENISESANTOAMYNICOLE Jennifer ([id number]) 1965 M Date Time Provider Department 12/15/20 ANSELMO CASPER (PSS) PARESH During your visit today, we recorded the following information about you: Anselmo Casper Pss 12/15/2020 3:07 PM Addendum POPULATION HEALTH NAVIGATION OUTREACH Action/ Colorectal Cancer Screening (left VM, sent MYC msg) Update - scheduled pt for a colonoscopy consult w/Hailey Mercado in [place] using DDQ Contact made with patient or family member? NO Pt identified by name and : NO Outreach Outcome/Action Unable to reach patient: Left message MyChart message sent Reason for Outreach Care Gap or Scheduling/Wellness visits Payer: Payor: [employer] MEDICAID / Plan: [employer] MEDICA[employer] / Product Type: Medicaid / Care [...] future healthcare decisions with a power of trust and estates attorney, living will, or advance directives? Referrals: Message [...] Encounter Status:Closed by ANSELMO DAVIDSON on 12/15/20 [facility] Progress note 12-15-2020 Note Date & Type Note Facility 12-15-2020 Note HNO ID: [id number] Author: Anselmo Kent Service: ? Author Type: ? Type: Progress Notes Filed: 12/15/2020 3:07 PM Note Text: POPULATION HEALTH NAVIGATION OUTREACH Action/ Colorectal Cancer Screening (left VM, sent MYC msg) Update - scheduled pt for a colonoscopy consult w/Hailey Mercado in [place] using DDQ Contact made with patient or family member? NO Pt identified by name and : NO Outreach Outcome/Action Unable to reach patient: Left message WeissBe[employer]hart message sent Reason for Outreach Care Gap or Scheduling/Wellness visits Payer: Payor: [employer] MEDICAID / Plan: [employer] MEDICA[place] / Product Type: Medicaid / Care [...] future healthcare decisions with a power of trust and estates attorney, living will, or advance directives? Referrals: Message Sent to Practice: NO Navigation Signature: Anselmo Kent December 15, 2020 9:14 AM [facility] Clinical Note 06-07-2020 Note Date & Type Note Facility 06-07-2020 Note Patient Outreach (FA MPWS) SAGARNICOLE Jennifer ([id number]) 1965 M Date Time Provider Department 06/07/20 CECELIA CONNELL) GARRETT During your visit today, we recorded the following information about you: Cecelia Connell [facility] 06/07/2020 10:00 AM Signed POPULATION HEALTH NAVIGATION OUTREACH Action/FYI TriPlayhart message sent to patient Contact made with [...] to Practice: NO Navigation Signature: Ceceliaholden Connell [facility] June 07, 2020 9:59 AM Allergies As of Date: 06/07/2020 Noted Allergy Reaction KRUPA INHIBITORS 05/03/2013 7 - Swelling Comments: angioedema CODEINE 03/14/2010 5 - Intolerance LISINOPRIL 05/14/2013 10 - Anaphylaxis Date Reviewed: 08/27/2018 Reviewed by: Ariel Key LPN - Fully Assessed Reason for Visit: PHMA/Care Gap Outreach [[id number]] Prescriptions as of 06/07/2020 Sig: PANTOPRAZOLE 40 [...] Status:Closed by CECELIA CONNELL CMA on 06/07/20 [facility] Progress note 06-07-2020 Note Date & Type Note Facility 06-07-2020 Note HNO ID: [id number] Author: Cecelia Connell Cma Service: ? Author [...] Connell Cma June 07, 2020 9:59 AM [facility] Summary Purpose Family History No Family [...] BE BASED ON THE PRIMARY CLINICAL RECORDS. [facility]. provides no warranty or guarantee of the accuracy or completeness of information in this document.
== END | disposition home or self-care (01) ==
LOC: BIMLAB 14:41
PROVIDERS: PCP Internal Medicine; Visit Provider Internal Medicine
DX: J44.9 Chronic obstructive pulmonary disease, unspecified (principal); F10.10 Alcohol abuse, uncomplicated; I10 Essential (primary) hypertension; Z86.73 Personal history of transient ischemic attack (TIA), and cerebral infarction without residual deficits; E55.9 Vitamin D deficiency, unspecified; Z12.5 Encounter for screening for malignant neoplasm of prostate
CPT/HCPCS: 84153; 36415; 80053; 82306; 84443; 85025; G0103

== ENCOUNTER 2023-06-26 03:22 | Observation (INO) | payer MEDICAID, SELFPAY ==
[2023-06-26] VITALS (10 sets, daily range): BP systolic 125–162; BP diastolic 78–103; PULSE 81–90; RESP 16–18; TEMP 36.1–37.3; O2SAT 95–99; BMI 22.8; BMI 22.1
[2023-06-26 03:47] LABS: Absolute Lymphocyte Count 1.85 X10^3/uL (0.83-4.51); Absolute Neutrophil Count 2.7 X10^3/uL (2.0-7.7); Basophil# 0.05 X10^3/uL; Basophil% 0.9 % (0-1); Eosinophil# 0.15 X10^3/uL; Eosinophils% 2.8 % (0-5); Hematocrit 32.1 % (40-54); Hemoglobin 10.7 g/dL (13.0-16.5); Lymphocyte # 1.85 X10^3/ul (0.83-4.51); Mean Corp Hgb Conc 33.3 g/dL (32-36); Mean Corpuscular Hgb 24.8 pg (27.0-32.0); Mean Corpuscular Volume 74.3 fL (80-94); Mean Platelet Vol. 8.9 fl (6.2-12.0); Monocyte# 0.51 X10^3/uL; Monocyte% 9.6 % (0-10); NRBC Flagged by Analyzer 0 % (0-5); Neutrophil # 2.72 X10^3/uL (2.7-7.7); Neutrophil % 51.5 % (47-70); Platelet Count 268 K/mm3 (150-450); RBC Distribution Width CV 17.2 % (11.6-14.6); RBC Distribution Width SD 45.3 fl (35.1-43.9); Red Blood Count 4.32 M/mm3 (4.6-6.2); White Blood Count 5.3 K/mm3 (4.4-11.0)
[2023-06-26 04:06] LABS: AST(SGOT) 67 U/L (15-37); Alanine Aminotransfer ALT/SGPT 30 U/L (16-61); Albumin, Serum 3.7 g/dL (3.2-5.0); Alkaline Phosphatase 105 U/L (45-117); Anion Gap 9 (5-15); BUN 6 mg/dL (7-18); BUN/Creat Ratio 10.1 RATIO (10-20); Calcium,Total 8.4 mg/dL (8.5-10.1); Chloride 91 mmol/L (98-107); EST Glomerular Filtration Rate 148 mL/min (>60); Est Glom Filt Rate - Afr Amer 179 mL/min (>60); Estimated Creatinine Clearance 140.65 ml/min; Globulin 4.1 g/dL (2.2-4.2); Glucose 103 mg/dL (74-106); Potassium 3.3 mmol/L (3.5-5.1); Protein, Total 7.8 g/dL (6.4-8.2); Sodium Level 125 mmol/L (136-145)
[2023-06-26] MEDS: Thiamine Hydrochloride 100 MG in 0.9% Normal Saline (50mL Bag) 50 ML 200 MG IV (04:22)
--- NOTE | 2023-06-26 04:24 | HP.PCM.HOS_ITS ---
HPI - General General Date of Admission: 06/26/23 Date of Service: 06/26/23 Chief Complaint: Alcohol withdrawal HPI Narrative NICOLE KEITH, is a 57 M who presented to [facility] ED on 06/26/2023 requesting alcohol detoxification. Patient seen at bedside in the ED. Patient was sitting up fairly comfortably in bed, conversing normally, in no acute distress. He did appear moderately anxious during our encounter. His bl ood pressure was in the 160s over 90s and pulse was in the 80s and 90s. Patient came in for alcohol detox because he said that if he kept drinking he felt like he would . He has gone through detox a few times in the past but that was many years ago. He tried to wean himself off somewhat recently but had significant withdrawal symptoms. He has been drinking 12-18 beers per day recently. States his alcohol intake has increased over the last few months. States he had a stroke at the end of last year and has gone through quite a bit of physical therapy recently. States he was doing well with walking until a few weeks ago when he started to become more unstable on his feet. He lives alone and was doing okay take care of himself until weeks ago when he has not done much at all besides drink. He denies any pain or discomfort currently. Denies any fevers or chills. Does have anxiety and feels somewhat restless. Denies any shaking to this point. No other acute concerns at this time. Discussed with patient on his preference for alcohol detox medications and he was agreeable to doing a phenobarbital taper. [facility] Medical History Alcohol abuse Alcohol use Anxiety Arthritis Back pain GERD (gastroesophageal reflux disease) History of pain when walking History of recent stroke Hx of fracture of leg Hyperlipidemia Hypertension Marijuana use Right thalamic stroke Smoker Tobacco use Wears glasses Home Medications omeprazole 20 mg capsule,delayed release 20 mg PO DAILY PRN ACID REFLUX #90 caps 01/01/23 [Rx Last Taken Unknown] losartan 50 mg-hydrochlorothiazide 12.5 mg tablet 1 tab PO DAILY #90 tabs 03/13/23 [Rx Last Taken Unknown] amlodipine 10 mg tablet 10 mg PO DAILY BLOOD PRESSURE #90 tabs 03/28/23 [Rx Last Taken Unknown] atorvastatin 40 mg tablet 40 mg PO QHS CHOLESTEROL #90 tabs 04/28/23 [Rx Last Taken Unknown] aspirin 81 mg chewable tablet 81 mg PO BREAKFAST HEART HEALTH #90 tabs 05/29/23 [Rx Last Taken Unknown] trazodone 50 mg tablet 50 mg PO QHS PRN sleep #30 tabs 05/29/23 [Rx Last Taken Unknown] Allergy/AdvReac Type Severity Reaction Status Date / Time lisinopril Allergy Angioedema Verified 06/26/23 03:23 aspirin AdvReac HEARTBURN Verified 06/26/23 03:23 codeine AdvReac NIGHTMARES Verified 06/26/23 03:23 Family History Other CAD (coronary artery disease) Cancer Diabetes Heart disease Kidney disease Myocardial infarction Seizures Surgical History History of colonoscopy (07/10/21) History of tonsillectomy and adenoidectomy Hx of removal of testicle Social History household members: none housing: apartment Smoking Status: Current every day smoker tobacco type: cigarettes how long ago did patient quit smokin years quit 2018 alcohol intake: current alcohol intake frequency: a few times a week Alcohol type: beer details: Patient drinks intermittently-predominantly seems to binge drink at this po substance use type: does not use ROS Constitutional Constitutional: Denies chills, fatigue, fever(s) or weakness Eyes Eyes: Denies change in vision Cardiovascular Cardiovascular: Denies chest pain Respiratory/Chest Respiratory/Chest: Denies cough, shortness of breath at rest or wheezing Gastrointestinal Gastrointestinal: Denies abdominal pain, constipation, diarrhea, nausea or vomiting Neurologic Neurologic: Reports abnormal gait; Denies confusion, dizziness, focal weakness, headache(s), seizures or tremor(s) Vital Signs Vital Signs Vital Signs: 06/26/23 03:23 06/26/23 03:23 Temperature 97.8 F 97.8 F Temperature Source Temporal Temporal Pulse Rate 89 88 Respiratory Rate 18 16 Blood Pressure 162/91 H 162/91 H Blood Pressure Mean 114 114 Blood Pressure Source Monitor Blood Pressure Position Semi-Fowlers Blood Pressure Location Right Arm Pulse Ox 98 99 Oxygen Delivery Method Room Air Weight Weight: 74.1 kg Body Mass Index (BMI) 22.8 Physical Exam Const alert, oriented x3, no apparent distress and average body habitus Constitutional Narrative: Middle-age male, sitting up comfortably in bed, mild to moderately anxious appearing, otherwise conversing normally, in no acute distress. General Appearance: cooperative and comfortable HEENT normocephalic, head/scalp atraumatic, hearing grossly normal bilaterally and nasal mucous membranes and turbinates normal Eyes PERRL, EOMs intact bilaterally and conjunctivae normal Neck full ROM Chest inspection of chest normal Resp normal respiratory effort, normal air movement, no use of accessory muscles and clear to auscultation bilaterally Cardio regular rate, regular rhythm, no murmurs and peripheral pulses 2+ throughout GI normal to inspection, nondistended, normoactive bowel sounds, soft to palpation, non-tender and non-distended Back/Spine normal ROM Extremity normal to inspection, full ROM and no pedal edema Skin no rashes or lesions noted Neuro moves all extremities and no focal motor deficits Speech: speech normal Psych mental status grossly normal Results Lab / Micro Data 06/26/23 03:35 06/26/23 03:35 Labs: Laboratory Results - last 24 hr 06/26/23 03:35: WBC 5.3, RBC 4.32 L, Hgb 10.7 L, Hct 32.1 L, MCV 74.3 L, MCH 24.8 L, MCHC 33.3, RDW Std Deviation 45.3 H, RDW Coeff of Wen 17.2 H, Plt Count 268, MPV 8.9, Immature Gran % (Auto) 0.200, Neut % (Auto) 51.5, Lymph % (Auto) 35.0, [place] % (Auto) 9.6, Eos % (Auto) 2.8, Baso % (Auto) 0.9, Absolute Neuts (auto) 2.7, Absolute Lymphs (auto) 1.85, Nucleated RBC % 0, Sodium 125 L, Potassium 3.3 L, Chloride 91 L, Carbon Dioxide 25.0, Anion Gap 9, BUN 6 L, Creatinine 0.60 L, Estim Creat Clear Calc 140.65, Est GFR (MDRD) Af Amer 179, Est GFR (MDRD) Non-Af 148, BUN/Creatinine Ratio 10.1, Glucose 103, Calcium 8.4 L , Magnesium 2.0, Total Bilirubin 0.50, Direct Bilirubin 0.20, AST 67 H, ALT 30, Alkaline Phosphatase 105, Total Protein 7.8, Albumin 3.7, Globulin 4.1, Ethyl Alcohol 250.0 Assessment & Plan Assessment/Plan (1) Desire for detoxification: (2) Alcohol withdrawal: QUALIFIERS: Complication of substance-induced condition: with unspecified complication Qualified Code(s): F10.239 - Alcohol dependence with withdrawal, unspecified (3) Alcohol abuse: (4) Hyponatremia: PLAN: Plan Patient is a 57-year-old male who presented to [facility] ED on 06/26/2023 for alcohol detoxification. 1. Alcohol abuse with concern for withdrawal ? Admit under inpatient status to [facility]. Alcohol level 250 on admit. Drinks 12-18 beers per day. Last drink an hour or so prior to arrival to the ED. Phenobarbital taper ordered. As needed medications for alcohol withdrawal symptoms also ordered per alcohol withdrawal order set. Start folate and thiamine. Folic acid and thiamine levels ordered. 2. Hyponatremia ? Sodium 125 on admit. Chloride 91. No mental status changes. Hypovolemic hyponatremia plus or minus beer potomania seem to be the most likely causes. Given 1 L normal saline in the ED. Urine sodium, urine osmolality and serum is mildly ordered. Trend daily sodium. Holding hydrochlorothiazide. 3. Hypokalemia ? Potassium 3.3 on admit. Mag and Phos within normal limits. Replete as needed. 4. History of CVA, abnormal gait ? History of ischemic right thalamic stroke in December 2022. Had deficits of left-sided weakness and difficulty controlling movements that improved well after that hospitalization. Now reports he has had worsening gait and balance over the past few weeks. Unclear etiology, cannot rule out Wernicke's. PT/OT/case management consulted. Folate and thiamine levels ordered. Will treat with standard doses of folate and thiamine for now but can consider escalating thiamine dose as needed. Continue home aspirin and statin. Chronic medical conditions: ? Hypertension: Continue home amlodipine and losartan. Holding home hydrochlorothiazide as noted above. ? Hyperlipidemia: Continue home statin. ? GERD: Continue home PPI. ? Insomnia: Continue home trazodone as needed. DVT prophylaxis: Lovenox CODE STATUS: Full code, unverified Expected disposition: Home, TBD Total clinical time spent by myself addressing the patient's medical issues, reviewing all the data, and collaborating with patient's care team: 55 minutes. Charges/Coding Visit Charges Inpatient E&M: 37783 Init Hosp L2
--- NOTE | 2023-06-26 04:35 | EX.ED.DYSGE1 ---
HPI History of Present Illness Chief Complaint: ETOH Intox Informant: patient Narrative Narrative: Patient is a 57-year-old male with past medical history of hypertension COPD previous CVA and alcohol abuse. He states that he drinks on average 6 beers a night and had done that daily for multiple years. He states in the last few weeks has been drinking 12 or more beers per night. He states he has tried to quit on his own in the past and develops tremors and shakes and feels so bad that he goes back to drinking. He denies any previous history of DTs or alcohol withdrawal but as he is concerned that he needs help in order to stop drinking he comes in for evaluation [facility] Medical History Alcohol abuse Alcohol use Anxiety Arthritis Back pain GERD (gastroesophageal reflux disease) History of pain when walking History of recent stroke Hx of fracture of leg Hyperlipidemia Hypertension Marijuana use Right thalamic stroke Smoker Tobacco use Wears glasses Home Medications omeprazole 20 mg capsule,delayed release 20 mg PO DAILY PRN ACID REFLUX #90 caps 01/01/23 [Rx Last Taken Unknown] losartan 50 mg-hydrochlorothiazide 12.5 mg tablet 1 tab PO DAILY #90 tabs 03/13/23 [Rx Last Taken Unknown] amlodipine 10 mg tablet 10 mg PO DAILY BLOOD PRESSURE #90 tabs 03/28/23 [Rx Last Taken Unknown] atorvastatin 40 mg tablet 40 mg PO QHS CHOLESTEROL #90 tabs 04/28/23 [Rx Last Taken Unknown] aspirin 81 mg chewable tablet 81 mg PO BREAKFAST HEART HEALTH #90 tabs 05/29/23 [Rx Last Taken Unknown] trazodone 50 mg tablet 50 mg PO QHS PRN sleep #30 tabs 05/29/23 [Rx Last Taken Unknown] Allergy/AdvReac Type Severity Reaction Status Date / Time lisinopril Allergy Angioedema Verified 06/26/23 03:23 aspirin AdvReac HEARTBURN Verified 06/26/23 03:23 codeine AdvReac NIGHTMARES Verified 06/26/23 03:23 Family History Other CAD (coronary artery disease) Cancer Diabetes Heart disease Kidney disease Myocardial infarction Seizures Surgical History History of colonoscopy (07/10/21) History of tonsillectomy and adenoidectomy Hx of removal of testicle Social History household members: none housing: apartment Smoking Status: Current every day smoker tobacco type: cigarettes how long ago did patient quit smokin years quit 2018 alcohol intake: current alcohol intake frequency: a few times a week Alcohol type: beer details: Patient drinks intermittently-predominantly seems to binge drink at this po substance use type: does not use ROS ROS ED Constitutional Constitutional ED: Denies chills or fever(s) Eyes Eyes: Denies change in vision ENT ENT ED: Denies sore throat Cardiovascular Cardiovascular: Denies chest pain Respiratory/Chest Respiratory/Chest: Denies cough or dyspnea Gastrointestinal Gastrointestinal: Denies abdominal pain, diarrhea, nausea or vomiting Genitourinary Genitourinary ED: Denies dysuria Musculoskeletal Musculoskeletal: Denies myalgias Integumentary Denies rash Neurologic Neurologic: Denies headache(s) Hematologic/Lymphatic Hematologic/Lymphatic: Denies easy bleeding or easy bruising EXAM Physical Exam Const Vital Signs: 06/26/23 03:23 06/26/23 03:23 06/26/23 04:22 Temperature 97.8 F 97.8 F Temperature Source Temporal Temporal Pulse Rate 89 88 87 Respiratory Rate 18 16 16 Blood Pressure 162/91 H 162/91 H 151/78 H Blood Pressure Mean 114 114 102 Blood Pressure Source Monitor Blood Pressure Position Semi-Fowlers Blood Pressure Location Right Arm Pulse Ox 98 99 97 Oxygen Delivery Method Room Air Positive well nourished and well developed General Appearance ED: well developed; Negative for pallor HEENT HEENT Narrative: Normocephalic atraumatic Eyes PERRL and EOMs intact bilaterally General Eye ED: Negative for scleral icterus Neck supple Neck Narrative: No nuchal rigidity or meningeal signs Resp normal respiratory effort Resp Narrative: Breath sounds are diminished throughout with diffuse expiratory wheeze consistent with history of COPD but no signs of respiratory distress Cardio regular rate and regular rhythm Rate: other Other Details: Radial and carotid pulses are equal and symmetric GI normal to inspection, nondistended, normoactive bowel sounds, non-tender, non-distended and no masses GI Narrative: No voluntary guarding or rigidity or pulsatile mass Auscultation: normoactive bowel sounds Palpation: soft Extremity normal to inspection Extremity Narrative: No asymmetric edema no pitting edema negative Homans' sign bilaterally Neuro oriented x3, CN's II-XII intact bilaterally and no sensory deficits noted Sensorium / Orientation: alert Motor Exam: strength 5/5 throughout Psych Psych Narrative: Patient has a flat affect Skin no rashes or lesions noted and no wounds General Skin Exam: Negative for jaundice or pallor MDM MDM MDM Narrative Medical decision making narrative: Patient arrived to the ER hypertensive otherwise with stable vitals. He reported longstanding history of alcohol use/abuse which has worsened recently. He did admit to marijuana use but denies any other illicit drugs and he denied any homicidal or suicidal ideation. With high likelihood that he will progress to delirium tremens/seizure activity and have life-threatening complications from alcohol withdrawal as he tried to quit at home he was recommended admission. Patient underwent a medical screening exam which showed stable electrolytes and no signs of acute kidney injury. His sodium is low at 125 but this is consistent with his history of alcohol abuse. Therefore at this time as patient will require inpatient therapy to prevent alcohol withdrawals medicine was contacted and they do agree to accept him for further care History & Record Review Discussion w/independent historian: Patient Lab Data Attestation: I reviewed the patient's lab results. Labs: Laboratory Results - last 24 hr 06/26/23 03:35 WBC 5.3 RBC 4.32 L Hgb 10.7 L Hct 32.1 L MCV 74.3 L MCH 24.8 L MCHC 33.3 RDW Std Deviation 45.3 H RDW Coeff of Wen 17.2 H Plt Count 268 MPV 8.9 Immature Gran % (Auto) 0.200 Neut % (Auto) 51.5 Lymph % (Auto) 35.0 [place] % (Auto) 9.6 Eos % (Auto) 2.8 Baso % (Auto) 0.9 Absolute Neuts (auto) 2.7 Absolute Lymphs (auto) 1.85 Nucleated RBC % 0 Sodium 125 L Potassium 3.3 L Chloride 91 L Carbon Dioxide 25.0 Anion Gap 9 BUN 6 L Creatinine 0.60 L Estim Creat Clear Calc 140.65 Est GFR (MDRD) Af Amer 179 Est GFR (MDRD) Non-Af 148 BUN/Creatinine Ratio 10.1 Glucose 103 Calcium 8.4 L Magnesium 2.0 Total Bilirubin 0.50 Direct Bilirubin 0.20 AST 67 H ALT 30 Alkaline Phosphatase 105 Total Protein 7.8 Albumin 3.7 Globulin 4.1 Ethyl Alcohol 250.0 Management Discussion w/another healthcare provider: Hospitalist Discharge Plan Dx/Rx/DC Orders Clinical Impression: Alcohol abuse, Desire for detoxification, Tobacco use, History of CVA (cerebrovascular accident), Hypertension, Chronic hyponatremia Disposition Disposition: Acute Care [facility]
[2023-06-26] MEDS: Folic Acid 1 MG in 0.9% Normal Saline (50mL Bag) 50 ML 200 MG IV (04:40)
[2023-06-26] MEDS: 0.9% Normal Saline (1000mL) 1,000 ML 999 ML IV (05:06)
[2023-06-26 05:13] LABS: Urine Sodium 20 mmol/L (Not Establ.)
[2023-06-26 05:17] LABS: Phosphorus 4.1 mg/dL (2.5-4.9)
[2023-06-26 05:23] LABS: Amphetamine Urine VISTA NEGATIVE (<1000 ng/mL); Barbiturate Urine VISTA NEGATIVE (< 200 ng/mL); Benzodiazepine Urine VISTA NEGATIVE (< 200 ng/mL); Cocaine Urine VISTA NEGATIVE (< 300 ng/mL); Ecstacy Urine VISTA NEGATIVE (< 500 ng/mL); Methadone Urine VISTA NEGATIVE (< 300 ng/mL); PCP Urine VISTA NEGATIVE (< 25 ng/mL); THC Urine VISTA POSITIVE (< 50 ng/mL); Vista UDS pH Range 5
[2023-06-26 05:39] LABS: Osmolality, Urine 152 mOsm/KG
[2023-06-26 05:39] LABS: Osmolality, Serum 310 mOsm/KG (275-295)
[2023-06-26] MEDS: Gabapentin 300 MG Capsule PO (05:53)
[2023-06-26] MEDS: Dicyclomine 10 MG Capsule 20 MG PO (05:53)
[2023-06-26] MEDS: Ondansetron 4 MG/2 ML Vial IV (05:53)
[2023-06-26] MEDS: Phenobarbital 32.4 MG Tablet 64.8 MG PO ×5 (05:53→21:49)
[2023-06-26] MEDS: 0.9% Saline Lock 10 ML Syringe IV ×3 (05:54→21:50)
[2023-06-26] MEDS: Pantoprazole Sodium 20 MG Tablet PO (05:54)
[2023-06-26] MEDS: Folic Acid 1 MG Tablet PO (08:26)
[2023-06-26] MEDS: Aspirin 81 MG TAB.CHEW PO (08:26)
[2023-06-26] MEDS: Thiamine Hydrochloride 100 MG Tablet PO (08:26)
[2023-06-26] MEDS: Enoxaparin 40 MG/0.4 ML Syringe SC (10:10)
[2023-06-26] MEDS: amLODIPine 10 MG Tablet PO (10:10)
[2023-06-26] MEDS: Losartan Potassium 50 MG Tablet PO (10:11)
[2023-06-26] MEDS: Ensure Plus High Protein 120 ML LIQUID PO ×2 (10:12→15:00)
--- NOTE | 2023-06-26 11:12 | ADDICTION ---
This policy writer met with patient to conduct ASAM, MSE, and AUDIT assessments and to begin discussing d/c planning. Patient declined residential recommendation but reports he is willing to have an assessment with [facility]. He denies a need for transport once discharged.
--- NOTE | 2023-06-26 18:36 | PN.HOSP_ITS ---
Reason for Visit Reason for Visit: Diagnoses Hypo-osmolality and hyponatremia (06/26/23) Alcohol abuse, uncomplicated (06/26/23) Alcohol dependence with withdrawal, unspecified (06/26/23) Subjective Subjective Patient was seen and examined today, he states he feels well at this time, he states when he was admitted he was very jittery and anxious. Patient states he would like to do an outpatient detox program when he is discharged in the [place] [facility]. Objective Data Objective Data Vital Signs: Vital Signs Temp Pulse Resp BP Pulse Ox O2 Del Method 99.0 F 90 16 146/84 H 96 Room Air 06/26/23 14:53 06/26/23 14:53 06/26/23 14:53 06/26/23 14:53 06/26/23 14:53 06/26/23 14:53 Oxygen Delivery Method Room Air Weight: 71.804 kg Body Mass Index (BMI) 22.1 Intake & Output: Intake and Output for Last 24 Hours 06/24/23 06/25/23 06/26/23 23:59 23:59 23:59 Intake Total 1101.2 / 1101.2 Balance 1101.2 / 1101.2 Lab / Micro Data 06/26/23 03:35 06/26/23 03:35 Labs: Laboratory Results - last 24 hr 06/26/23 03:35: WBC 5.3, RBC 4.32 L, Hgb 10.7 L, Hct 32.1 L, MCV 74.3 L, MCH 24.8 L, MCHC 33.3, RDW Std Deviation 45.3 H, RDW Coeff of Wen 17.2 H, Plt Count 268, MPV 8.9, Immature Gran % (Auto) 0.200, Neut % (Auto) 51.5, Lymph % (Auto) 35.0, [place] % (Auto) 9.6, Eos % (Auto) 2.8, Baso % (Auto) 0.9, Absolute Neuts (auto) 2.7, Absolute Lymphs (auto) 1.85, Nucleated RBC % 0, Sodium 125 L, Potassium 3.3 L, Chloride 91 L, Carbon Dioxide 25.0, Anion Gap 9, BUN 6 L, Creatinine 0.60 L, Estim Creat Clear Calc 140.65, Est GFR (MDRD) Af Amer 179, Est GFR (MDRD) Non-Af 148, BUN/Creatinine Ratio 10.1, Glucose 103, Calcium 8.4 L , Magnesium 2.0, Total Bilirubin 0.50, Direct Bilirubin 0.20, AST 67 H, ALT 30, Alkaline Phosphatase 105, Total Protein 7.8, Albumin 3.7, Globulin 4.1, Ethyl Alcohol 250.0 06/26/23 04:50: Serum Osmolality 310 H, Phosphorus 4.1, Folate 7.30 06/26/23 04:52: Urine Osmolality 152, Ur Random Sodium 20, Urine Opiates Screen NEGATIVE, Urine Methadone Screen NEGATIVE, Ur Barbiturates Screen NEGATIVE, Ur Phencyclidine Scrn NEGATIVE, Ur Amphetamines Screen NEGATIVE, MDMA (Ecstasy) Screen NEGATIVE, U Benzodiazepines Scrn NEGATIVE, Urine Cocaine Screen NEGATIVE, U Cannabinoids Screen POSITIVE H, Ur Drug Screen Comment Physical Exam Const alert, oriented x3, no apparent distress and healthy appearing General Appearance: cooperative, well kempt and well developed Orientation / Consciousness: awake, oriented to person, oriented to place and oriented to time HEENT normocephalic, head/scalp atraumatic and moist oral mucous membranes Eyes PERRL, EOMs intact bilaterally and conjunctivae normal Neck supple, no JVD, thyroid normal and no carotid bruits General: trachea midline Resp normal respiratory effort, no retractions, no use of accessory muscles and clear to auscultation bilaterally Auscultation: Negative for rales, rhonchi or wheezes Cardio regular rate, regular rhythm, S1 normal heart sound, S2 normal heart sound, no murmurs, no rub and no gallops GI normal to inspection, nondistended, normoactive bowel sounds, soft to palpation, non-tender and non-distended Extremity no clubbing, cyanosis or edema Skin no rashes or lesions noted General Skin Exam: no breakdown Neuro oriented x3, CN's II-XII intact bilaterally, moves all extremities, no focal motor deficits and no sensory deficits noted Sensorium / Orientation: awake and alert Speech: speech normal Psych affect normal Assessment & Plan Assessment/Plan (1) Desire for detoxification: PLAN: Plan 1. Acute alcohol withdrawal-continue present medications #2 hyponatremia secondary to beer potomania-patient's BMP will be repeated tomorrow, he received 1 L of saline on admission #3 hypokalemia-patient's BMP will be rechecked tomorrow #4 chronic alcoholism-complicates care, management, recovery, and prognosis- patient will need follow-up as an outpatient #5 cerebrovascular disease-patient states he takes a baby aspirin a day, atorvastatin, and the blood pressure medication #6 essential hypertension-patient will remain on his current medications #7 GERD-patient is on Protonix Total clinical time spent by myself addressing patient's medical issues, reviewing all of his data, and collaborating with the patient's care team: 35 minutes Charges/Coding Visit Charges Inpatient E&M: 35886 Subs Hosp L2
[2023-06-26] MEDS: Atorvastatin Calcium 40 MG Tablet PO (21:49)
[2023-06-26] MEDS: traZODone 50 MG Tablet PO (21:50)
[2023-06-27 01:37] VITALS: BP 131/93; PULSE 76; RESP 17; TEMP 36.7; O2SAT 97
[2023-06-27] MEDS: Phenobarbital 32.4 MG Tablet 64.8 MG PO ×6 (01:37→22:22)
[2023-06-27 05:30] VITALS: BP 150/93; PULSE 83; RESP 18; TEMP 36.8; O2SAT 96
[2023-06-27 06:48] LABS: Anion Gap 5 (5-15); BUN 7 mg/dL (7-18); BUN/Creat Ratio 11.1 RATIO (10-20); Calcium,Total 8.6 mg/dL (8.5-10.1); Chloride 99 mmol/L (98-107); Creatinine, Serum 0.63 mg/dL (0.70-1.30); EST Glomerular Filtration Rate 139 mL/min (>60); Est Glom Filt Rate - Afr Amer 168 mL/min (>60); Glucose 98 mg/dL (74-106); Potassium 3.8 mmol/L (3.5-5.1); Sodium Level 128 mmol/L (136-145)
[2023-06-27 07:17] VITALS: O2SAT 96
[2023-06-27 07:36] VITALS: BP 131/92; PULSE 82; RESP 16; TEMP 36.8; O2SAT 95
[2023-06-27] MEDS: Aspirin 81 MG TAB.CHEW PO (07:44)
[2023-06-27] MEDS: Thiamine Hydrochloride 100 MG Tablet PO (07:45)
[2023-06-27] MEDS: Folic Acid 1 MG Tablet PO (07:45)
[2023-06-27 09:01] LABS: Hematocrit 33.5 % (40-54); Hemoglobin 11.1 g/dL (13.0-16.5); Mean Corp Hgb Conc 33.1 g/dL (32-36); Mean Corpuscular Hgb 25.8 pg (27.0-32.0); Mean Corpuscular Volume 77.9 fL (80-94); Mean Platelet Vol. 9.5 fl (6.2-12.0); Platelet Count 243 K/mm3 (150-450); RBC Distribution Width CV 17.5 % (11.6-14.6); RBC Distribution Width SD 48.3 fl (35.1-43.9); White Blood Count 7.9 K/mm3 (4.4-11.0)
[2023-06-27] MEDS: amLODIPine 10 MG Tablet PO (09:23)
[2023-06-27] MEDS: Losartan Potassium 50 MG Tablet PO (09:23)
[2023-06-27] MEDS: Enoxaparin 40 MG/0.4 ML Syringe SC (09:24)
[2023-06-27 13:37] VITALS: BP 119/83; PULSE 85; RESP 16; TEMP 37.3; O2SAT 97
--- NOTE | 2023-06-27 16:41 | PN.HOSP_ITS ---
Reason for Visit Reason for Visit: Diagnoses Hypo-osmolality and hyponatremia (06/26/23) Alcohol abuse, uncomplicated (06/26/23) Alcohol dependence with withdrawal, unspecified (06/26/23) Subjective Subjective Patient was seen and examined today, addiction social media community manager stated that the patient could be discharged but the patient is wary about going home today would like to stay until the morning to make sure he does not have any withdrawal s ymptoms. Patient is doing an outpatient detox program after discharge. Patient has no complaints of any anxiety or tremor Objective Data Objective Data Vital Signs: Vital Signs Temp Pulse Resp BP Pulse Ox O2 Del Method 99.2 F H 85 16 119/83 H 97 Room Air 06/27/23 13:37 06/27/23 13:37 06/27/23 13:37 06/27/23 13:37 06/27/23 13:37 06/27/23 13:37 Oxygen Delivery Method Room Air Weight: 71.804 kg Body Mass Index (BMI) 22.1 Intake & Output: Intake and Output for Last 24 Hours 06/25/23 06/26/23 06/27/23 23:59 23:59 23:59 Intake Total 1101.2 / 1101.2 Balance 1101.2 / 1101.2 Lab / Micro Data 06/27/23 08:46 06/27/23 05:45 Labs: Laboratory Results - last 24 hr 06/27/23 05:45: WBC Cancelled, Corrected WBC Cancelled, RBC Cancelled, Hgb Cancelled, Hct Cancelled, MCV Cancelled, MCH Cancelled, MCHC Cancelled, RDW Std Deviation Cancelled, RDW Coeff of Wen Cancelled, Plt Count Cancelled, MPV Cancelled, Diff Path Review Cancelled, Sodium 128 L, Potassium 3.8, Chloride 99, Carbon Dioxide 24.0, Anion Gap 5, BUN 7, Creatinine 0.63 L, Estim Creat Clear Calc 129.80, Est GFR (MDRD) Af Amer 168, Est GFR (MDRD) Non-Af 139, BUN/Creatinine Ratio 11.1, Glucose 98, Calcium 8.6 06/27/23 08:46: WBC 7.9, RBC 4.30 L, Hgb 11.1 L, Hct 33.5 L, MCV 77.9 L, MCH 25.8 L, MCHC 33.1, RDW Std Deviation 48.3 H, RDW Coeff of Wen 17.5 H, Plt Count 243, MPV 9.5 Physical Exam Const alert, oriented x3 and no apparent distress General Appearance: cooperative, well kempt and well developed Orientation / Consciousness: awake, oriented to person, oriented to place and oriented to time HEENT normocephalic and moist oral mucous membranes Eyes PERRL, EOMs intact bilaterally and conjunctivae normal Neck supple, no JVD, thyroid normal and no carotid bruits General: trachea midline Resp normal respiratory effort and clear to auscultation bilaterally Auscultation: Negative for rales, rhonchi or wheezes Cardio regular rate, regular rhythm, no murmurs, no rub and no gallops GI normal to inspection, nondistended, normoactive bowel sounds, soft to palpation, non-tender and non-distended Extremity no clubbing, cyanosis or edema Skin no rashes or lesions noted General Skin Exam: no breakdown Neuro oriented x3, CN's II-XII intact bilaterally, no focal motor deficits and no sensory deficits noted Sensorium / Orientation: awake and alert Speech: speech normal Psych affect normal Assessment & Plan Assessment/Plan (1) History of CVA (cerebrovascular accident): (2) Desire for detoxification: PLAN: Plan 1. Acute alcohol withdrawal-continue present medications, evaluate the patient tomorrow morning for possible discharge home #2 hyponatremia secondary to beer potomania-patient's sodium is improved today to 128, I have elected not to repeat his serum sodium again #3 hypokalemia-corrected at this time #4 chronic alcoholism-complicates care, management, recovery, and prognosis- patient will need follow-up as an outpatient #5 cerebrovascular disease-patient states he takes a baby aspirin a day, atorvastatin, and the blood pressure medication #6 essential hypertension-patient will remain on his current medications #7 GERD-patient is on Protonix Total clinical time spent by myself addressing patient's medical issues, reviewing all of his data, and collaborating with the patient's care team: 35 minutes Charges/Coding Visit Charges Inpatient E&M: 02929 Subs Hosp L2
[2023-06-27 20:17] VITALS: BP 132/87; PULSE 76; RESP 18; TEMP 37.3; O2SAT 96
[2023-06-27] MEDS: Atorvastatin Calcium 40 MG Tablet PO (22:22)
[2023-06-27] MEDS: Gabapentin 300 MG Capsule PO (22:22)
[2023-06-28 02:31] VITALS: BP 134/88; PULSE 64; RESP 18; TEMP 36.6; O2SAT 96
[2023-06-28] MEDS: Phenobarbital 32.4 MG Tablet 64.8 MG PO ×2 (02:33→05:30)
[2023-06-28] MEDS: Albuterol 2.5 MG/3 ML VIAL.NEB. INHALATION (05:38)
[2023-06-28 05:39] VITALS: PULSE 88; RESP 18
--- NOTE | 2023-06-28 07:57 | PN.HOSP_ITS ---
Reason for Visit Reason for Visit: Diagnoses Hypo-osmolality and hyponatremia (06/26/23) Alcohol abuse, uncomplicated (06/26/23) Alcohol dependence with withdrawal, unspecified (06/26/23) Personal history of transient ischemic attack (TIA), and cerebral infarction without residual deficits (06/26/23) Subjective Subjective Feels well. Groggy after phenobarbital. Objective Data Objective Data Vital Signs: Vital Signs Temp Pulse Resp BP Pulse Ox O2 Del Method 36.6 C 88 18 134/88 H 96 Room Air 06/28/23 02:31 06/28/23 05:39 06/28/23 05:39 06/28/23 02:31 06/28/23 02:31 06/28/23 02:31 Oxygen Delivery Method Room Air Weight: 71.804 kg Body Mass Index (BMI) 22.1 Intake & Output: Intake and Output for Last 24 Hours 06/26/23 06/27/23 06/28/23 23:59 23:59 23:59 Intake Total 1101.2 / 1101.2 Balance 1101.2 / 1101.2 Lab / Micro Data 06/27/23 08:46 06/27/23 05:45 Labs: Laboratory Results - last 24 hr 06/27/23 08:46: WBC 7.9, RBC 4.30 L, Hgb 11.1 L, Hct 33.5 L, MCV 77.9 L, MCH 25.8 L, MCHC 33.1, RDW Std Deviation 48.3 H, RDW Coeff of Wen 17.5 H, Plt Count 243, MPV 9.5 Physical Exam Const alert and no apparent distress HEENT head/scalp atraumatic and moist oral mucous membranes Extremity normal to inspection Assessment & Plan Assessment/Plan (1) History of CVA (cerebrovascular accident): (2) Desire for detoxification: PLAN: Plan Acute alcohol withdrawal * on phenobarbital taper. * thiamine folate * Patient was seen by addiction medicine and he declined residential treatment but is willing to follow-up with 180. hyponatremia * likely secondary to beer potomania * follow up as outpt. hypokalemia * resolved Chronic conditions: * cerebrovascular disease-patient states he takes a baby aspirin a day, atorvastatin, and the blood pressure medication * essential hypertension-patient will remain on his current medications * GERD-patient is on Protonix
[2023-06-28 09:15] VITALS: BP 149/91; PULSE 88; RESP 16; TEMP 37.2; O2SAT 99
[2023-06-28] MEDS: Losartan Potassium 50 MG Tablet PO (09:27)
[2023-06-28] MEDS: Folic Acid 1 MG Tablet PO (09:27)
[2023-06-28] MEDS: Thiamine Hydrochloride 100 MG Tablet PO (09:27)
[2023-06-28] MEDS: Aspirin 81 MG TAB.CHEW PO (09:27)
[2023-06-28] MEDS: Enoxaparin 40 MG/0.4 ML Syringe SC (09:28)
[2023-06-28] MEDS: amLODIPine 10 MG Tablet PO (09:31)
--- NOTE | 2023-06-28 11:26 | PCM.DC.SUM ---
Providers Date of Admission: 06/26/23 Primary Care Physician: Dr. Nichole Grove MD Reason For Visit: ALCOHOL WITHDRAWAL Diagnosis Discharge Diagnosis (1) History of CVA (cerebrovascular accident): Status: Acute Code(s): Z86.73 - Personal history of transient ischemic attack (TIA), and cerebral infarction without residual deficits (2) Desire for detoxification: Status: Acute Plan Acute alcohol withdrawal on phenobarbital taper. thiamine folate Patient was seen by addiction medicine and he declined residential treatment but is willing to follow-up with 180. hyponatremia likely secondary to beer potomania follow up as outpt. hypokalemia resolved Chronic conditions: cerebrovascular disease-patient states he takes a baby aspirin a day, atorvastatin, and the blood pressure medication essential hypertension-patient will remain on his current medications GERD-patient is on Protonix Medications at Discharge Home Medications omeprazole 20 mg capsule,delayed release 20 mg PO DAILY PRN ACID REFLUX #90 caps 01/01/23 losartan 50 mg-hydrochlorothiazide 12.5 mg tablet 1 tab PO DAILY #90 tabs 03/13/23 amlodipine 10 mg tablet 10 mg PO DAILY BLOOD PRESSURE #90 tabs 03/28/23 atorvastatin 40 mg tablet 40 mg PO QHS CHOLESTEROL #90 tabs 04/28/23 aspirin 81 mg chewable tablet 81 mg PO BREAKFAST HEART HEALTH #90 tabs 05/29/23 trazodone 50 mg tablet 50 mg PO QHS PRN sleep #30 tabs 05/29/23 multivitamin (Daily Multi-Vitamin tablet) 1 tab PO DAILY #30 tabs 06/28/23 Physical Exam Const alert Neuro Sensorium / Orientation: awake and alert Weight / BMI Weight Weight: 71.804 kg Body Mass Index (BMI) 22.1 ABG / Lab / Microbiology Data 06/27/23 08:46 06/27/23 05:45 Meaningful Use Info Meaningful Use Meaningful Use Diagnoses (Choose all that apply): None applicable Ischemic Stroke Statin Dosing Therapy Reference: STATIN DOSE THERAPY REFERENCE: * Patients > 75 years receive moderate or high dose statin therapy. * Patients 75 years or YOUNGER should receive HIGH intensity statin dose unless contraindicated. You will be required to document reason for non-treatment if statin daily dose does not meet guidelines. HIGH DOSE STATIN THERAPY DAILY Atorvastatin > than or = to 40 mg Rosuvastatin > than or = to 20 mg Amlodipine + Atorvastatin > than or = to 2.5/40 mg Ezetimibe + Simvastatin 10/80 mg Simvastatin 80mg Discharge Plan Admission Admit Date/Time: 06/26/23 04:37 Primary Reason for Your Visit: alcohol withdrawal Attending Provider: Diaz Pham Primary Care Provider: Nichole Grove Consulting Providers: Bill Yoo; Bhavesh Hayes Instructions Additional Instructions / Restrictions: [facility] up [facility] their programs. Discharge Orders/Prescriptions Prescriptions: New multivitamin [Daily Multi-Vitamin] Tablet 1 tab PO DAILY Qty: 30 0RF Continued omeprazole 20 mg capsule,delayed release(DR/EC) 20 mg PO DAILY PRN (Reason: ACID REFLUX ) Qty: 90 1RF losartan-hydrochlorothiazide 50-12.5 mg tablet 1 tab PO DAILY Qty: 90 1RF amlodipine 10 mg tablet 10 mg PO DAILY Qty: 90 1RF atorvastatin 40 mg tablet 40 mg PO QHS Qty: 90 3RF aspirin 81 mg tablet,chewable 81 mg PO BREAKFAST Qty: 90 3RF trazodone 50 mg tablet 50 mg PO QHS PRN (Reason: sleep) Qty: 30 2RF Referrals / Follow Up: Nichole Grove MD [Primary Care Provider] - Disposition Disposition (needs filled in before D/C Order can be placed): Home, Self Care Charges/Coding Visit Charges Inpatient E&M: 49680 Disch Hosp
[2023-06-28 13:15] VITALS: BP 149/96; PULSE 83; RESP 16; TEMP 36.6; O2SAT 98
[2023-07-02 17:07] LABS: Vitamin B1, Thiamine 132.7 nmol/L (66.5-200.0)
== END 2023-06-28 13:37 | disposition home or self-care (01) | DRG 775 ==
LOC: ED 04:36 → MS3 07:48
PROVIDERS: Internal Medicine; Admitting Provider Hospitalist; Emergency Provider Emergency Medicine; PCP Internal Medicine
DX: F10.239 Alcohol dependence with withdrawal, unspecified (principal); J44.9 Chronic obstructive pulmonary disease, unspecified; E87.1 Hypo-osmolality and hyponatremia; I10 Essential (primary) hypertension; E78.5 Hyperlipidemia, unspecified; E87.6 Hypokalemia; F17.210 Nicotine dependence, cigarettes, uncomplicated; K21.9 Gastro-esophageal reflux disease without esophagitis; Z79.82 Long term (current) use of aspirin; Y90.8 Blood alcohol level of 240 mg/100 ml or more; Z86.73 Personal history of transient ischemic attack (TIA), and cerebral infarction without residual deficits; G47.00 Insomnia, unspecified; Z79.899 Other long term (current) drug therapy
CPT/HCPCS: 36415; 80048; 80076; 80307; 80320; 82746; 83735; 83930; 83935; 84100; 84300; 84425; 85025; 85027; 94640; 96365; 96367; 96372; 96375; 97802; 99221; 99284; J7030; A4216; G0378; G0480; J2405; J3490

== ENCOUNTER 2023-09-04 06:53 | Inpatient (IN) | payer MEDICAID, SELFPAY ==
[2023-09-04] VITALS (12 sets, daily range): BP systolic 112–136; BP diastolic 76–98; PULSE 64–99; RESP 16–18; TEMP 35.6–37; O2SAT 94–99; BMI 21.7
--- NOTE | 2023-09-04 07:08 | EDS_ITS ---
HPI History of Present Illness Chief Complaint: Substance Abuse Narrative Narrative: 57-year-old male past medical history of COPD, alcoholism, previous stroke, hypertension, presents wanting detox from alcohol. He states he last went through detox in June of this year approximately 4 months ago. He states that he made an appointment with outpatient rehab, but never attended. He states that he has been drinking alcohol since he was 13 years old and there was times that he could manage his alcohol, or so he felt. Over the last few weeks, he states that he has been drinking more. He wakes up in the morning, states he feels well for about 10 seconds, then feels the need to have a beer because he has his heart racing and feels shaky. His last drink was initially reported at 2 AM, 5 hours ago, but that he states that he had 1 or 2 more beers, maybe the last being 2 hours ago. He denies any nausea or vomiting, but does have GERD and reflux. [facility] Medical History Depression Smoker COPD (chronic obstructive pulmonary disease) History of CVA (cerebrovascular accident) Tobacco use Desire for detoxification Old myocardial infarction Hyperlipidemia Hyperglycemia Ischemic stroke History of recent stroke Alcohol abuse Right thalamic stroke Wears glasses Anxiety Marijuana use Alcohol use Arthritis Back pain Smoker History of pain when walking Hx of fracture of leg GERD (gastroesophageal reflux disease) Chronic hyponatremia Alcohol abuse Tobacco use Hypertension Home Medications ?Medication ?Instructions ?Recorded ?Last Taken ?Type losartan 50 mg-hydrochlorothiazide 1 tab PO DAILY #90 tabs 03/13/23 09/04/23 Rx 12.5 mg tablet amlodipine 10 mg tablet 10 mg PO DAILY BLOOD PRESSURE #90 03/28/23 09/04/23 Rx tabs aspirin 81 mg chewable tablet 81 mg PO BREAKFAST HEART HEALTH 05/29/23 09/04/23 Rx #90 tabs trazodone 50 mg tablet 50 mg PO QHS PRN sleep #30 tabs 05/29/23 Unknown Rx multivitamin (Daily Multi-Vitamin 1 tab PO DAILY #30 tabs 06/28/23 09/04/23 Rx tablet) atorvastatin 40 mg tablet 40 mg PO DAILY CHOLESTEROL 09/04/23 09/04/23 History omeprazole 20 mg capsule,delayed 20 mg PO DAILY ACID REFLUX 09/04/23 09/04/23 History release Allergy/AdvReac Type Severity Reaction Status Date / Time lisinopril Allergy Angioedema Verified 09/04/23 06:54 aspirin AdvReac HEARTBURN Verified 09/04/23 06:54 codeine AdvReac NIGHTMARES Verified 09/04/23 06:54 Family History Other CAD (coronary artery disease) Cancer Diabetes Heart disease Kidney disease Myocardial infarction Seizures Surgical History History of colonoscopy (07/10/21) History of tonsillectomy and adenoidectomy Hx of removal of testicle Social History household members: none housing: apartment Smoking Status: Light Smoker (<10/day) Tobacco: How many years used: 42 how long ago did patient quit smokin years quit 2019 alcohol intake: former details: Patient drinks intermittently-predominantly seems to binge drink at this po substance use type: marijuana and other details: Marijuana occasionally ROS ROS ED ROS Narrative Constitutional: No fever, no chills. HEENT: No sore throat. No neck pain. No loss of vision. No rhinorrhea. Cardiovascular: No chest pain. Occasional palpitations. No pedal edema. Respiratory: No cough, no shortness of breath. Abdominal: No abdominal pain. No nausea. No vomiting. Positive gagging. Genitourinary: No dysuria. No hematuria. Musculoskeletal: No myalgias. No arthralgias. Neurologic: No headaches. No dizziness. No lightheadedness. Intermittent shakiness. Skin: No rash. No change in color. Psychiatric: No depression. No anxiety. EXAM Physical Exam Narrative Exam Narrative: Afebrile. Vital signs noted. Regular rate and rhythm. Lungs clear to auscultation bilaterally. Abdomen soft nontender with normal active bowel sounds. Awake, alert. Motor ferment on breath. Appears mildly intoxicated. Moves all extremities. Const Vital Signs: 09/04/23 06:55 09/04/23 07:08 09/04/23 07:54 Temperature 97.9 F 98.6 F 97.8 F Temperature Source Oral Temporal Temporal Pulse Rate 89 64 78 Respiratory Rate 18 16 16 Blood Pressure 125/84 H 124/76 H 122/76 H Blood Pressure Mean 97 92 91 Blood Pressure Source Monitor Pulse Ox 98 98 98 Oxygen Delivery Method Room Air Room Air Room Air 09/04/23 09:00 Temperature Temperature Source Pulse Rate 78 Respiratory Rate 16 Blood Pressure 121/76 H Blood Pressure Mean 91 Blood Pressure Source Pulse Ox 98 Oxygen Delivery Method Room Air MDM MDM MDM Narrative Medical decision making narrative: I reviewed the patient's prior records. He had been seen and admitted for detox from alcohol. Additionally, he had hyponatremia at that time. I reviewed his laboratory work and he has normal white count of 6.2, hemoglobin stable at 12.4 with hematocrit 36.2. His sodium is low at 121, but he seems to have chronic hyponatremia. Potassium low at 3.0. BUN of 11 and creatinine 0.68. LFTs are elevated with AST of 437 and ALT of 204 with alk phos 312. There has been elevation in the past as well. I do feel this is secondary to his alcohol use. Urine for drugs of abuse is positive for cannabinoids, but he does admit to smoking marijuana on occasion. Blood alcohol level is elevated at 211. At this point in time, I discussed patient with Dr. Eladia Mcghee, who will admit the patient to the PCU for his desire for detox, and hyponatremia/hypokalemia. History & Record Review Discussion w/independent historian: Patient and Friend Additional record(s) reviewed:: Prior ED visit and Prior labs Lab Data Attestation: I reviewed the patient's lab results. Labs: Laboratory Results - last 24 hr 09/04/23 09/04/23 09/04/23 07:05 07:55 08:00 WBC 6.2 RBC 4.56 L Hgb 12.4 L Hct 36.2 L MCV 79.4 L MCH 27.2 MCHC 34.3 RDW Std Deviation 48.3 H RDW Coeff of Wen 16.8 H Plt Count 324 MPV 10.1 Immature Gran % (Auto) 0.500 Neut % (Auto) 56.4 Lymph % (Auto) 32.4 [place] % (Auto) 8.5 Eos % (Auto) 1.4 Baso % (Auto) 0.8 Absolute Neuts (auto) 3.5 Absolute Lymphs (auto) 2.02 Nucleated RBC % 0 Sodium 121 L Potassium 3.0 L Chloride 84 L Carbon Dioxide 25.0 Anion Gap 12 BUN 11 Creatinine 0.68 L Est GFR (MDRD) Af Amer 154 Est GFR (MDRD) Non-Af 128 BUN/Creatinine Ratio 16.2 Glucose 110 H Calcium 8.7 Phosphorus 2.9 Magnesium 1.9 Total Bilirubin 1.50 H AST 437 H ALT 204 H Alkaline Phosphatase 312 H Total Protein 7.3 Albumin 3.6 Globulin 3.7 Albumin/Globulin Ratio 1.0 Urine Opiates Screen NEGATIVE Urine Methadone Screen NEGATIVE Ur Barbiturates Screen NEGATIVE Ur Phencyclidine Scrn NEGATIVE Ur Amphetamines Screen NEGATIVE MDMA (Ecstasy) Screen NEGATIVE U Benzodiazepines Scrn NEGATIVE Urine Cocaine Screen NEGATIVE U Cannabinoids Screen POSITIVE H Ur Drug Screen Comment Ethyl Alcohol 211.0 Management Discussion w/another healthcare provider: Hospitalist (Dr. Mcghee) Discharge Plan Dx/Rx/DC Orders Clinical Impression: Alcohol intoxication, Elevated LFTs, Low serum sodium, Hypokalemia Disposition Disposition: [facility]
[2023-09-04 07:23] LABS: Absolute Lymphocyte Count 2.02 X10^3/uL (0.83-4.51); Absolute Neutrophil Count 3.5 X10^3/uL (2.0-7.7); Basophil# 0.05 X10^3/uL; Basophil% 0.8 % (0-1); Eosinophil# 0.09 X10^3/uL; Eosinophils% 1.4 % (0-5); Hematocrit 36.2 % (40-54); Hemoglobin 12.4 g/dL (13.0-16.5); Lymphocyte # 2.02 X10^3/ul (0.83-4.51); Lymphocyte % 32.4 % (19-41); Mean Corp Hgb Conc 34.3 g/dL (32-36); Mean Corpuscular Hgb 27.2 pg (27.0-32.0); Mean Corpuscular Volume 79.4 fL (80-94); Mean Platelet Vol. 10.1 fl (6.2-12.0); Monocyte# 0.53 X10^3/uL; Monocyte% 8.5 % (0-10); NRBC Flagged by Analyzer 0 % (0-5); Neutrophil # 3.51 X10^3/uL (2.7-7.7); Neutrophil % 56.4 % (47-70); Platelet Count 324 K/mm3 (150-450); RBC Distribution Width CV 16.8 % (11.6-14.6); RBC Distribution Width SD 48.3 fl (35.1-43.9); Red Blood Count 4.56 M/mm3 (4.6-6.2); White Blood Count 6.2 K/mm3 (4.4-11.0)
[2023-09-04] MEDS: 0.9% Normal Saline (1000mL) 1,000 ML 999 ML IV (07:24)
[2023-09-04 07:43] LABS: AST(SGOT) 437 U/L (15-37); Alanine Aminotransfer ALT/SGPT 204 U/L (16-61); Albumin, Serum 3.6 g/dL (3.2-5.0); Alkaline Phosphatase 312 U/L (45-117); Anion Gap 12 (5-15); BUN 11 mg/dL (7-18); BUN/Creat Ratio 16.2 RATIO (10-20); Calcium,Total 8.7 mg/dL (8.5-10.1); Chloride 84 mmol/L (98-107); Creatinine, Serum 0.68 mg/dL (0.70-1.30); EST Glomerular Filtration Rate 128 mL/min (>60); Est Glom Filt Rate - Afr Amer 154 mL/min (>60); Globulin 3.7 g/dL (2.2-4.2); Glucose 110 mg/dL (74-106); Protein, Total 7.3 g/dL (6.4-8.2); Sodium Level 121 mmol/L (136-145)
[2023-09-04 08:38] LABS: Amphetamine Urine VISTA NEGATIVE (<1000 ng/mL); Barbiturate Urine VISTA NEGATIVE (< 200 ng/mL); Benzodiazepine Urine VISTA NEGATIVE (< 200 ng/mL); Cocaine Urine VISTA NEGATIVE (< 300 ng/mL); Ecstacy Urine VISTA NEGATIVE (< 500 ng/mL); Methadone Urine VISTA NEGATIVE (< 300 ng/mL); PCP Urine VISTA NEGATIVE (< 25 ng/mL); THC Urine VISTA POSITIVE (< 50 ng/mL); Vista UDS pH Range 6
--- NOTE | 2023-09-04 09:04 | HP.PCM.HOS_ITS ---
HPI - General General Date of Admission: 09/04/23 Date of Service: 09/04/23 Chief Complaint: Alcohol abuse with pending withdrawal HPI Narrative NICOLE KEITH, is a 57 M who presented to the emergency department [facility] on 09/04/2023 requesting detox from alcohol. He previously went through detox here in June about 4 months ago and made an appointment with outpatient rehab but never attended. He has been drinking since he was 13-years old. Over the last several weeks he states has been drinking more than he had typically and he wakes up in the morning and states he feels well for about 10 seconds and feels like he needs to have a beer because his heart is racing and he feels shaky. His last drink prior to presentation was about 5 hours prior to presentation, but then admitted he drank 1-2 more beers after waking 2 hours ago. He is not having any significant withdrawal symptoms at the time of presentation. He drinks about 18 beers per day that are 6% alcohol. Vital signs on presentation showed temperature of 97.9, heart rate 89, respiratory rate 18, blood pressure is 125/84 and oxygen saturation is 98% on room air. His CBC was overtly unremarkable other than a slight microcytic anemia with a hemoglobin of 12.4. His chemistry panel was abnormal with a sodium of 121 (patient is chronically hyponatremic at baseline), hypokalemia with potassium of 3.0 and an elevated bilirubin and transaminases consistent with an alcohol pattern AST being twice the ALT. His toxicology screen was positive only for cannabis and his other alcohol level on admission was 211. [facility] Medical History Depression Smoker COPD (chronic obstructive pulmonary disease) History of CVA (cerebrovascular accident) Tobacco use Desire for detoxification Old myocardial infarction Hyperlipidemia Hyperglycemia Ischemic stroke History of recent stroke Alcohol abuse Right thalamic stroke Wears glasses Anxiety Marijuana use Alcohol use Arthritis Back pain Smoker History of pain when walking Hx of fracture of leg GERD (gastroesophageal reflux disease) Chronic hyponatremia Alcohol abuse Tobacco use Hypertension Home Medications ?Medication ?Instructions ?Recorded ?Last Taken ?Type losartan 50 mg-hydrochlorothiazide 1 tab PO DAILY #90 tabs 03/13/23 09/04/23 Rx 12.5 mg tablet amlodipine 10 mg tablet 10 mg PO DAILY BLOOD PRESSURE #90 03/28/23 09/04/23 Rx tabs aspirin 81 mg chewable tablet 81 mg PO [facility] 05/29/23 09/04/23 Rx #90 tabs trazodone 50 mg tablet 50 mg PO QHS PRN sleep #30 tabs 05/29/23 Unknown Rx multivitamin (Daily Multi-Vitamin 1 tab PO DAILY #30 tabs 06/28/23 09/04/23 Rx tablet) atorvastatin 40 mg tablet 40 mg PO DAILY CHOLESTEROL 09/04/23 09/04/23 History omeprazole 20 mg capsule,delayed 20 mg PO DAILY ACID REFLUX 09/04/23 09/04/23 History release Allergy/AdvReac Type Severity Reaction Status Date / Time lisinopril Allergy Angioedema Verified 09/04/23 06:54 aspirin AdvReac HEARTBURN Verified 09/04/23 06:54 codeine AdvReac NIGHTMARES Verified 09/04/23 06:54 Family History Other CAD (coronary artery disease) Cancer Diabetes Heart disease Kidney disease Myocardial infarction Seizures Surgical History History of colonoscopy (07/10/21) History of tonsillectomy and adenoidectomy Hx of removal of testicle Social History household members: none housing: apartment Smoking Status: Light Smoker (<10/day) Tobacco: How many years used: 42 how long ago did patient quit smokin years quit 2019 alcohol intake: former details: Patient drinks intermittently-predominantly seems to binge drink at this po substance use type: marijuana and other details: Marijuana occasionally ROS Constitutional Constitutional: Reports fatigue, malaise and weakness; Denies anorexia, change in weight, chills, fever(s), night sweats or other Eyes Eyes: Denies blurry vision, change in eye color, change in vision, discharge from eye(s), double vision, erythema, eye pain, loss of vision or other ENT HEENT: Denies abnormal hearing, dysphagia, ear pain, epistaxis, headache(s), hearing loss, nasal congestion, nasal discharge, post nasal drip, sinus pressure, sore throat or other Cardiovascular Cardiovascular: Denies chest pain, claudication, dyspnea on exertion, edema, lightheadedness, orthopnea, palpitations, paroxysmal nocturnal dyspnea, rapid heart rate, syncope or other Respiratory/Chest Respiratory/Chest: Reports cough and wheezing; Denies dyspnea, excessive phlegm production, hemoptysis, productive cough, shortness of breath at rest, shortness of breath with exertion or other Gastrointestinal Gastrointestinal: Reports dyspepsia; Denies abdominal pain, coffee ground emesis, constipation, diarrhea, hematemesis, hematochezia, loose stools, melena, nausea, vomiting or other Genitourinary Genitourinary: Denies burning urination, difficulty urinating, dysuria, hematuria, nocturia, urinary frequency, urinary hesitancy, urinary incontinence, urinary urgency or other Musculoskeletal Musculoskeletal: Reports myalgias; Denies arthralgias, back pain, joint pain, joint stiffness, joint swelling, neck pain or other Neurologic Neurologic: Reports tremor(s); Denies abnormal gait, abnormal speech, confusion, disequilibrium, dizziness, focal weakness, headache(s), numbness, paresthesias, seizure-like activity, seizures, syncope, tingling or other Psychiatric Psychiatric: Reports anxiety and depression; Denies homicidal ideation, suicidal ideation or other Endocrine Endocrinology: Denies change in body appearance, cold intolerance, excessive sweating, heat intolerance, polydipsia, polyuria or other Hematologic/Lymphatic Hematologic/Lymphatic: Denies anemia, easy bleeding, easy bruising, lymphadenopathy or other Allergic/Immunologic Allergic/Immunologic: Denies rhinitis, hives, eczemia, asthma or other Vital Signs Vital Signs Vital Signs: 09/04/23 06:55 09/04/23 07:08 09/04/23 07:54 Temperature 97.9 F 98.6 F 97.8 F Temperature Source Oral Temporal Temporal Pulse Rate 89 64 78 Respiratory Rate 18 16 16 Blood Pressure 125/84 H 124/76 H 122/76 H Blood Pressure Mean 97 92 91 Blood Pressure Source Monitor Pulse Ox 98 98 98 Oxygen Delivery Method Room Air Room Air Room Air Physical Exam Const alert, oriented x3, no apparent distress and average body habitus; Negative for healthy appearing or well nourished Constitutional Narrative: Middle-aged, white male, sitting up in bed, appears older than stated age, appears nontoxic and comfortable at this time General Appearance: cooperative HEENT normocephalic, head/scalp atraumatic, hearing grossly normal bilaterally and moist oral mucous membranes HEENT Narrative: Dentition is poor, Mallampati is 2, no thrush Resp normal respiratory effort, no retractions, no use of accessory muscles and No clear to auscultation bilaterally Resp Narrative: Diffusely diminished with scattered end expiratory wheezes Auscultation: wheezes; Negative for rales or rhonchi Cardio regular rate, regular rhythm, S1 normal heart sound, S2 normal heart sound, no murmurs, no rub, no gallops and no clicks GI normal to inspection, nondistended, normoactive bowel sounds, soft to palpation and non-tender GI Narrative: Mild hepatomegaly Extremity no clubbing, cyanosis or edema Extremity Narrative: Pedal pulses are 2+ Neuro oriented x3, moves all extremities and no focal motor deficits Neuro Narrative: No outward tremor noticed at this time Speech: speech normal Psych Psych Narrative: Slightly flat, anxious but pleasant and eye contact is good Results Lab / Micro Data 09/04/23 07:05 09/04/23 07:05 Labs: Laboratory Results - last 24 hr 09/04/23 07:05: WBC 6.2, RBC 4.56 L, Hgb 12.4 L, Hct 36.2 L, MCV 79.4 L, MCH 27.2, MCHC 34.3, RDW Std Deviation 48.3 H, RDW Coeff of Wen 16.8 H, Plt Count 324, MPV 10.1, Immature Gran % (Auto) 0.500, Neut % (Auto) 56.4, Lymph % (Auto) 32.4, Cloud % (Auto) 8.5, Eos % (Auto) 1.4, Baso % (Auto) 0.8, Absolute Neuts (auto) 3.5, Absolute Lymphs (auto) 2.02, Nucleated RBC % 0, Sodium 121 L, P otassium 3.0 L, Chloride 84 L, Carbon Dioxide 25.0, Anion Gap 12, BUN 11, C reatinine 0.68 L, Est GFR (MDRD) Af Amer 154, Est GFR (MDRD) Non-Af 128, BUN/Creatinine Ratio 16.2, Glucose 110 H, Calcium 8.7, Total Bilirubin 1.50 H, A ST 437 H, ALT 204 H, Alkaline Phosphatase 312 H, Total Protein 7.3, Albumin 3.6, Globulin 3.7, Albumin/Globulin Ratio 1.0, Ethyl Alcohol 211.0 09/04/23 08:00: Urine Opiates Screen NEGATIVE, Urine Methadone Screen NEGATIVE, Ur Barbiturates Screen NEGATIVE, Ur Phencyclidine Scrn NEGATIVE, Ur Amphetamines Screen NEGATIVE, MDMA (Ecstasy) Screen NEGATIVE, U Benzodiazepines Scrn NEGATIVE, Urine Cocaine Screen NEGATIVE, U Cannabinoids Screen POSITIVE H, Ur Drug Screen Comment Assessment & Plan Assessment/Plan (1) Hypokalemia: (2) Alcohol intoxication: (3) Hyponatremia: (4) Alcoholic hepatitis: (5) Hyperbilirubinemia: PLAN: Plan Pending alcohol withdraw and chronic alcohol abuse -Recently here in June for detox but never made it to his follow-up appointment -Start phenobarbital taper -Supportive medications for withdrawal symptoms -Thiamine and folate -Consult 180 for assistance with discharge planning -Highly recommend residential on discharge Alcoholic hepatitis -Secondary to the above -Should improve with time not drinking -Will repeat liver functions in 48 hours Hyperbilirubinemia -secondary to above -Repeat in 48 hours Acute on chronic hyponatremia -Hold home hydrochlorothiazide and would recommend discontinuation on discharge -Check serum osmolality, urine osmolality, urine sodium, uric acid however I do suspect this is likely beer potomania -IV fluids x 1 L given the emergency department -Will hold on any further administration at this time -Repeat BMP in a.m. -Patient is asymptomatic Hypokalemia -Will give 60 mill equivalent p.o. potassium x 1 -check magnesium and Phos level and replace accordingly COPD -Patient is on any chronic inhalers -Will schedule DuoNebs -As needed albuterol available if needed -recommend tobacco cessation CAD/HTN/HPL -Continue home aspirin next-continue home atorvastatin -Continue home amlodipine -Hold losartan hydrochlorothiazide for now with plans to indefinitely hold HCTZ -If blood pressure stable will restart losartan tomorrow -As needed hydralazine GERD -Continue PPI History of OA -As needed Tylenol available Insomnia -As needed trazodone Tobacco abuse -Recommend cessation -Nicotine patch available Marijuana use -Recommend cessation DVT prophylaxis -Lovenox subcu 40 mg daily due to complex medical history and age CODE STATUS Full code Charges/Coding Visit Charges Inpatient E&M: 01329 Init Hosp L3
[2023-09-04 09:25] LABS: Magnesium 1.9 mg/dL (1.6-2.6); Phosphorus 2.9 mg/dL (2.5-4.9)
[2023-09-04 09:50] LABS: Urine Sodium 26 mmol/L (Not Establ.)
[2023-09-04 10:05] LABS: Osmolality, Serum 296 mOsm/KG (275-295)
[2023-09-04 10:05] LABS: Osmolality, Urine 249 mOsm/KG
[2023-09-04 10:21] LABS: Uric Acid 3.5 mg/dL (3.5-7.2)
[2023-09-04] MEDS: Potassium Chloride Oral Tablet 20 MEQ 60 MEQ PO (11:22)
[2023-09-04] MEDS: Phenobarbital 32.4 MG Tablet 64.8 MG PO ×4 (11:22→22:34)
[2023-09-04] MEDS: Enoxaparin 40 MG/0.4 ML Syringe SC (11:22)
[2023-09-04] MEDS: Ipratropium/Albuterol Sulfate 3 ML AMPUL.NEB INHALATION (13:31)
[2023-09-04] MEDS: 0.9% Saline Lock 10 ML Syringe IV (14:17)
[2023-09-04] MEDS: Gabapentin 300 MG Capsule PO (14:30)
[2023-09-04] MEDS: Ensure Plus High Protein 120 ML LIQUID PO (17:36)
[2023-09-04] MEDS: Dicyclomine 10 MG Capsule 20 MG PO (18:21)
[2023-09-04] MEDS: Acetaminophen 325 MG Tablet 650 MG PO (22:34)
[2023-09-04] MEDS: hydrOXYzine PAM 25 MG Capsule 50 MG PO (22:34)
[2023-09-05] VITALS (8 sets, daily range): BP systolic 118–128; BP diastolic 61–91; PULSE 70–118; RESP 16–18; TEMP 36.7–37.5; O2SAT 93–99
[2023-09-05] MEDS: Phenobarbital 32.4 MG Tablet 64.8 MG PO ×6 (03:12→22:18)
[2023-09-05 06:04] LABS: Anion Gap 11 (5-15); BUN 8 mg/dL (7-18); Calcium,Total 8.5 mg/dL (8.5-10.1); Chloride 94 mmol/L (98-107); EST Glomerular Filtration Rate 105 mL/min (>60); Est Glom Filt Rate - Afr Amer 127 mL/min (>60); Estimated Creatinine Clearance 100.51 ml/min; Glucose 99 mg/dL (74-106); Magnesium 1.8 mg/dL (1.6-2.6); Potassium 3.4 mmol/L (3.5-5.1); Sodium Level 129 mmol/L (136-145); Thyroid Stim Hormone (TSH) 1.83 uIU/mL (0.358-3.74)
[2023-09-05] MEDS: Ipratropium/Albuterol Sulfate 3 ML AMPUL.NEB INHALATION ×3 (06:46→19:00)
[2023-09-05] MEDS: Acetaminophen 325 MG Tablet 650 MG PO ×2 (06:53→14:34)
[2023-09-05] MEDS: Ensure Plus High Protein 120 ML LIQUID PO (07:35)
[2023-09-05] MEDS: Potassium Chloride Oral Tablet 20 MEQ 40 MEQ PO (08:59)
[2023-09-05] MEDS: Aspirin 81 MG TAB.CHEW PO (08:59)
[2023-09-05] MEDS: amLODIPine 10 MG Tablet PO (08:59)
[2023-09-05] MEDS: Multivitamins,Therapeutic Tablet 1 TABLET PO (08:59)
[2023-09-05] MEDS: Thiamine Hydrochloride 100 MG Tablet PO (08:59)
[2023-09-05] MEDS: Folic Acid 1 MG Tablet PO (08:59)
[2023-09-05] MEDS: Atorvastatin Calcium 40 MG Tablet PO (08:59)
[2023-09-05] MEDS: Pantoprazole Sodium 20 MG Tablet PO (08:59)
[2023-09-05] MEDS: Enoxaparin 40 MG/0.4 ML Syringe SC (08:59)
--- NOTE | 2023-09-05 11:08 | PCM.PN.HOSP ---
Reason for Visit Reason for Visit: Alcohol detoxification Subjective Subjective Patient states he is feeling much better than yesterday. Frustrated because his diet is still cardiac even though I changed it on admission. Will change it again back to general diet. It is unclear how he got back to cardiac diet. Denies any acute issues other than his diet at this time. We did discuss the possibility of inpatient rehab however the patient declined saying he does not want to lose his house and he has animals to take care of at home. When ED to evaluate later today. Objective Data Objective Data Vital Signs: Vital Signs Temp Pulse Resp BP Pulse Ox O2 Del Method 98.1 F 118 H 18 121/85 H 94 Room Air 09/05/23 08:54 09/05/23 08:54 09/05/23 08:54 09/05/23 08:54 09/05/23 08:54 09/05/23 08:54 Oxygen Delivery Method Room Air Weight: 70.6 kg Body Mass Index (BMI) 21.7 Intake & Output: Intake and Output for Last 24 Hours 09/03/23 09/04/23 09/05/23 23:59 23:59 23:59 Intake Total 1720 / 1720 Balance 1720 / 1720 Lab / Micro Data 09/04/23 07:05 09/05/23 05:12 Labs: Laboratory Results - last 24 hr 09/05/23 05:12: Sodium 129 L, Potassium 3.4 L, Chloride 94 L, Carbon Dioxide 24.0, Anion Gap 11, BUN 8, Creatinine 0.80, Estim Creat Clear Calc 100.51, Est GFR (MDRD) Af Amer 127, Est GFR (MDRD) Non-Af 105, BUN/Creatinine Ratio 10.0, Glucose 99, Calcium 8.5, Phosphorus 3.0, Magnesium 1.8, TSH 1.83 Physical Exam Const alert, oriented x3, no apparent distress and average body habitus; Negative for healthy appearing or well nourished Constitutional Narrative: Middle-aged, white male, sitting up in bed, watching television, appears older than stated age, appears nontoxic and comfortable at this time General Appearance: cooperative HEENT normocephalic, head/scalp atraumatic, hearing grossly normal bilaterally and moist oral mucous membranes HEENT Narrative: Dentition is poor, Mallampati is 2, no thrush Resp normal respiratory effort, no retractions, no use of accessory muscles and clear to auscultation bilaterally Resp Narrative: Diffusely diminished but clear Auscultation: Negative for rales, rhonchi or wheezes Cardio regular rate, regular rhythm, S1 normal heart sound, S2 normal heart sound, no murmurs, no rub, no gallops and no clicks GI normal to inspection, nondistended, normoactive bowel sounds, soft to palpation and non-tender GI Narrative: Mild hepatomegaly Extremity no clubbing, cyanosis or edema Extremity Narrative: Pedal pulses are 2+ Neuro oriented x3, moves all extremities and no focal motor deficits Neuro Narrative: Patient remains without any significant tremor Speech: speech normal Psych affect normal Psych Narrative: Patient pleasant, eye contact is good, interacts appropriately Assessment & Plan Assessment/Plan (1) Hypokalemia: (2) Alcohol intoxication: (3) Hyponatremia: (4) Alcoholic hepatitis: (5) Hyperbilirubinemia: PLAN: Plan Pending alcohol withdraw and chronic alcohol abuse -Recently here in June for detox but never made it to his follow-up appointment -Continue phenobarbital taper -Continue supportive medications for withdrawal symptoms -Continue thiamine and folate -180 consultation is pending-anticipate patient will be seen today -Highly recommended residential on discharge however patient would prefer outpatient follow-up -Anticipate discharge on Friday but will reevaluate tomorrow to see how patient is feeling Alcoholic hepatitis -Secondary to the above -Should improve with time not drinking -Repeat LFTs tomorrow Hyperbilirubinemia -secondary to above -Repeat bilirubin tomorrow Acute on chronic hyponatremia -Hold home hydrochlorothiazide and would recommend discontinuation on discharge -Sodium is up to 129 from 121 on admission -Highly suspect this is related to beer potomania/decreased solute intake in his diet -Repeat BMP in a.m. -Patient is asymptomatic Hypokalemia -Potassium up from 3.0-3.4 -Will repeat potassium oral dosing today -Magnesium levels within normal limits -Repeat CMP in a.m. COPD -Patient is on any chronic inhalers -Will schedule DuoNebs -As needed albuterol available if needed -recommend tobacco cessation CAD/HTN/HPL -Continue home aspirin next-continue home atorvastatin -Continue home amlodipine -Hold losartan hydrochlorothiazide for now with plans to indefinitely hold HCTZ -Blood pressure stable without his losartan/HCTZ --> no need to add back losartan at this time -will continue to monitor -As needed hydralazine for systolic blood pressure greater than 160 GERD -Continue PPI History of OA -As needed Tylenol available Insomnia -As needed trazodone Tobacco abuse -Recommend cessation -Nicotine patch available Marijuana use -Recommend cessation DVT prophylaxis -Lovenox subcu 40 mg daily CODE STATUS Full code Charges/Coding Visit Charges Inpatient E&M: 51433 Subs Hosp L2
[2023-09-05] MEDS: SimETHICONE 80 MG Chewable Tablet PO (14:29)
--- NOTE | 2023-09-05 19:16 | ADDICTION ---
Pt was met with for RAMP assessment and to complete AUDIT, DUDIT, ASAM, [place], and DC Plan. Pt states that he is concerned about his drinking but he is not interested in exploring residential or inpatient at this time. Pt states that his discharge plan is to return to services at [facility] after d/c from [facility]. Pt declines a need for transportation from [facility].
[2023-09-05] MEDS: Ibuprofen 400 MG Tablet PO (22:16)
[2023-09-06 03:10] VITALS: BP 118/87; PULSE 98; RESP 16; TEMP 36.9; O2SAT 97
[2023-09-06] MEDS: Phenobarbital 32.4 MG Tablet 64.8 MG PO ×5 (03:10→18:18)
[2023-09-06] MEDS: Ibuprofen 400 MG Tablet PO ×3 (06:37→20:11)
[2023-09-06 07:15] VITALS: PULSE 95; RESP 16
[2023-09-06] MEDS: Ipratropium/Albuterol Sulfate 3 ML AMPUL.NEB INHALATION ×2 (07:15→19:15)
[2023-09-06] MEDS: amLODIPine 10 MG Tablet PO (07:48)
[2023-09-06] MEDS: Enoxaparin 40 MG/0.4 ML Syringe SC (07:48)
[2023-09-06] MEDS: Folic Acid 1 MG Tablet PO (07:48)
[2023-09-06] MEDS: Pantoprazole Sodium 20 MG Tablet PO (07:49)
[2023-09-06] MEDS: Multivitamins,Therapeutic Tablet 1 TABLET PO (07:49)
[2023-09-06] MEDS: Thiamine Hydrochloride 100 MG Tablet PO (07:49)
[2023-09-06] MEDS: Atorvastatin Calcium 40 MG Tablet PO (07:49)
[2023-09-06] MEDS: Aspirin 81 MG TAB.CHEW PO (07:49)
[2023-09-06 08:11] LABS: ALB/GLOB Ratio 0.7 RATIO (0.9-2.4); AST(SGOT) 277 U/L (15-37); Alanine Aminotransfer ALT/SGPT 144 U/L (16-61); Albumin, Serum 2.6 g/dL (3.2-5.0); Alkaline Phosphatase 289 U/L (45-117); Anion Gap 8 (5-15); BUN 6 mg/dL (7-18); BUN/Creat Ratio 9.9 RATIO (10-20); Calcium,Total 8.3 mg/dL (8.5-10.1); Chloride 94 mmol/L (98-107); Creatinine, Serum 0.61 mg/dL (0.70-1.30); EST Glomerular Filtration Rate 145 mL/min (>60); Est Glom Filt Rate - Afr Amer 175 mL/min (>60); Estimated Creatinine Clearance 131.81 ml/min; Globulin 3.5 g/dL (2.2-4.2); Glucose 98 mg/dL (74-106); Potassium 3.7 mmol/L (3.5-5.1); Protein, Total 6.1 g/dL (6.4-8.2); Sodium Level 126 mmol/L (136-145)
[2023-09-06 09:00] VITALS: BP 128/93; PULSE 100; RESP 16; TEMP 36.6; O2SAT 94
--- NOTE | 2023-09-06 11:26 | PN.HOSP_ITS ---
Reason for Visit Reason for Visit: Alcohol withdrawal Subjective Subjective No significant issues overnight. Patient still feeling well. I did discuss the need to fluid restrict and he became very frustrated. I explained why we needed to do so with regards to his sodium and he voiced understanding but that did not alleviate his frustration with the situation. Objective Data Objective Data Vital Signs: Vital Signs Temp Pulse Resp BP Pulse Ox O2 Del Method 97.9 F 100 16 128/93 H 94 Room Air 09/06/23 09:00 09/06/23 09:00 09/06/23 09:00 09/06/23 09:00 09/06/23 09:00 09/06/23 09:45 Oxygen Delivery Method Room Air Weight: 70.6 kg Body Mass Index (BMI) 21.7 Intake & Output: Intake and Output for Last 24 Hours 09/04/23 09/05/23 09/06/23 23:59 23:59 23:59 Intake Total 1720 / 1720 800 / 800 Balance 1720 / 1720 800 / 800 Lab / Micro Data 09/04/23 07:05 09/06/23 06:05 Labs: Laboratory Results - last 24 hr 09/06/23 06:05: Sodium 126 L, Potassium 3.7, Chloride 94 L, Carbon Dioxide 24.0, Anion Gap 8, BUN 6 L, Creatinine 0.61 L, Estim Creat Clear Calc 131.81, Est GFR (MDRD) Af Amer 175, Est GFR (MDRD) Non-Af 145, BUN/Creatinine Ratio 9.9 L, Glucose 98, Calcium 8.3 L, Total Bilirubin 1.50 H, AST 277 H, ALT 144 H, A lkaline Phosphatase 289 H, Total Protein 6.1 L, Albumin 2.6 L, Globulin 3.5, A lbumin/Globulin Ratio 0.7 L Physical Exam Const alert, oriented x3, no apparent distress and average body habitus; Negative for healthy appearing or well nourished Constitutional Narrative: Middle-aged, white male, sitting up in bed, watching television, appears older than stated age, appears nontoxic and comfortable at this time General Appearance: cooperative HEENT normocephalic, head/scalp atraumatic and moist oral mucous membranes HEENT Narrative: Mallampati 2 dentition is fair for age Resp normal respiratory effort, no retractions, no use of accessory muscles and clear to auscultation bilaterally Resp Narrative: Diffusely diminished but clear Auscultation: Negative for rales, rhonchi or wheezes Cardio regular rate, regular rhythm, S1 normal heart sound, S2 normal heart sound, no murmurs, no rub, no gallops and no clicks GI normal to inspection, nondistended, normoactive bowel sounds, soft to palpation and non-tender GI Narrative: Mild hepatomegaly Extremity no clubbing, cyanosis or edema Extremity Narrative: Pedal pulses are 2+ Neuro oriented x3, moves all extremities and no focal motor deficits Neuro Narrative: Very mild fine tremor Speech: speech normal Psych affect normal Psych Narrative: Frustrated about fluid restriction but interacts appropriately Assessment & Plan Assessment/Plan (1) Hypokalemia: (2) Alcohol intoxication: (3) Hyponatremia: (4) Alcoholic hepatitis: (5) Hyperbilirubinemia: PLAN: Plan Pending alcohol withdraw and chronic alcohol abuse -Recently here in June for detox but never made it to his follow-up appointment -Continue phenobarbital taper -Continue supportive medications for withdrawal symptoms -Continue thiamine and folate -180 has evaluated the patient and patient declined inpatient rehab and intends to follow-up at 180 after discharge Alcoholic hepatitis -Secondary to the above -Should improve with time not drinking -LFTs have not yet normalized but trending down appropriately -No further follow-up needed Hyperbilirubinemia -No significant change in bilirubin however still remains mildly elevated at 1.5 -Suspect related to liver disease from alcohol use Acute on chronic hyponatremia -Hold home hydrochlorothiazide and would recommend discontinuation on discharge -Sodium at 126 today after being 129 yesterday -Will fluid restrict to 1750 cc daily and repeat in a.m. -Repeat BMP in a.m. -Patient is asymptomatic Hypokalemia -Resolved COPD -Patient is on any chronic inhalers -Will schedule DuoNebs -As needed albuterol available if needed -recommend tobacco cessation CAD/HTN/HPL -Continue home aspirin -continue home atorvastatin -Continue home amlodipine -Hold losartan hydrochlorothiazide for now with plans to indefinitely hold HCTZ -Blood pressure stable without his losartan/HCTZ --> no need to add back losartan at this time -will continue to monitor -As needed hydralazine for systolic blood pressure greater than 160 GERD -Continue PPI History of OA -As needed Tylenol available Insomnia -As needed trazodone Tobacco abuse -Recommend cessation -Nicotine patch available Marijuana use -Recommend cessation DVT prophylaxis -Lovenox subcu 40 mg daily CODE STATUS Full code Charges/Coding Visit Charges Inpatient E&M: 10510 Subs Hosp L2
--- NOTE | 2023-09-06 13:25 | CPS ---
Pt refused aerosol rx at this time to eat his lunch. Pt was informed his next rx would be at 7pm tonight. Pt understood and wishes to wait till 7 tonight for rx.
[2023-09-06 15:00] VITALS: BP 119/84; PULSE 99; RESP 16; TEMP 36.6; O2SAT 94
[2023-09-06 19:15] VITALS: PULSE 108; RESP 18
[2023-09-06 22:00] VITALS: BP 116/82; PULSE 106; RESP 18; TEMP 36.8; O2SAT 96
[2023-09-07] MEDS: Phenobarbital 32.4 MG Tablet 64.8 MG PO (00:21)
[2023-09-07 03:59] VITALS: BP 113/78; PULSE 99; RESP 18; TEMP 37; O2SAT 94
[2023-09-07 06:24] LABS: Anion Gap 7 (5-15); BUN 6 mg/dL (7-18); BUN/Creat Ratio 12.9 RATIO (10-20); Calcium,Total 8.6 mg/dL (8.5-10.1); Chloride 99 mmol/L (98-107); Creatinine, Serum 0.46 mg/dL (0.70-1.30); EST Glomerular Filtration Rate 197 mL/min (>60); Est Glom Filt Rate - Afr Amer 238 mL/min (>60); Estimated Creatinine Clearance 174.79 ml/min; Glucose 101 mg/dL (74-106); Potassium 3.5 mmol/L (3.5-5.1); Sodium Level 130 mmol/L (136-145)
[2023-09-07 07:04] VITALS: PULSE 86; RESP 16
[2023-09-07] MEDS: Ipratropium/Albuterol Sulfate 3 ML AMPUL.NEB INHALATION (07:04)
[2023-09-07] MEDS: hydrOXYzine PAM 25 MG Capsule 50 MG PO (08:49)
[2023-09-07] MEDS: Thiamine Hydrochloride 100 MG Tablet PO (08:49)
[2023-09-07] MEDS: Ibuprofen 400 MG Tablet PO (08:49)
[2023-09-07] MEDS: Pantoprazole Sodium 20 MG Tablet PO (08:50)
[2023-09-07] MEDS: Multivitamins,Therapeutic Tablet 1 TABLET PO (08:50)
[2023-09-07] MEDS: Folic Acid 1 MG Tablet PO (08:50)
[2023-09-07] MEDS: Atorvastatin Calcium 40 MG Tablet PO (08:51)
[2023-09-07] MEDS: amLODIPine 10 MG Tablet PO (08:51)
[2023-09-07] MEDS: Aspirin 81 MG TAB.CHEW PO (08:51)
[2023-09-07] MEDS: Enoxaparin 40 MG/0.4 ML Syringe SC (08:52)
[2023-09-07] MEDS: Ensure Plus High Protein 120 ML LIQUID PO (08:56)
[2023-09-07 09:11] VITALS: BP 131/102; PULSE 110; RESP 16; TEMP 37.6; O2SAT 95
--- NOTE | 2023-09-07 10:41 | PCM.DC.SUM ---
Providers Date of Admission: 09/04/23 Date of Discharge: 09/07/23 Primary Care Physician: Dr. Nichole Grove MD Reason For Visit: ETOH DETOX/HYPONATREMIA/HYPOKALEMIA Diagnosis Discharge Diagnosis (1) Hypokalemia: Status: Acute Code(s): E87.6 - Hypokalemia (2) Alcohol intoxication: Status: Acute Code(s): F10.929 - Alcohol use, unspecified with intoxication, unspecified (3) Hyponatremia: Status: Acute Code(s): E87.1 - Hypo-osmolality and hyponatremia (4) Alcoholic hepatitis: Status: Acute Code(s): K70.10 - Alcoholic hepatitis without ascites (5) Hyperbilirubinemia: Status: Acute Code(s): E80.6 - Other disorders of bilirubin metabolism Plan Medications at Discharge Home Medications amlodipine 10 mg tablet 10 mg PO DAILY BLOOD PRESSURE #90 tabs 03/28/23 aspirin 81 mg chewable tablet 81 mg PO BREAKFAST HEART HEALTH #90 tabs 05/29/23 trazodone 50 mg tablet 50 mg PO QHS PRN sleep #30 tabs 05/29/23 multivitamin (Daily Multi-Vitamin tablet) 1 tab PO DAILY #30 tabs 06/28/23 atorvastatin 40 mg tablet 40 mg PO DAILY CHOLESTEROL 09/04/23 omeprazole 20 mg capsule,delayed release 20 mg PO DAILY ACID REFLUX 09/04/23 losartan 50 mg tablet 50 mg PO DAILY #30 tabs 09/07/23 Hospital Course Operations None Procedures None Summary of Care Provided Minutes Spent on Discharge: 37 Hospital Course: NICOLE KEITH, is a 57 M who presented to the emergency department [facility] on 09/04/2023 requesting detox from alcohol. He previously went through detox here in June about 4 months ago and made an appointment with outpatient rehab but never attended. He has been drinking since he was 13-years old. Over the last several weeks he states has been drinking more than he had typically and he wakes up in the morning and states he feels well for about 10 seconds and feels like he needs to have a beer because his heart is racing and he feels shaky. His last drink prior to presentation was about 5 hours prior to presentation, but then admitted he drank 1-2 more beers after waking 2 hours ago. He is not having any significant withdrawal symptoms at the time of presentation. He drinks about 18 beers per day that are 6% alcohol. Vital signs on presentation showed temperature of 97.9, heart rate 89, respiratory rate 18, blood pressure is 125/84 and oxygen saturation is 98% on room air. His CBC was overtly unremarkable other than a slight microcytic anemia with a hemoglobin of 12.4. His chemistry panel was abnormal with a sodium of 121 (patient is chronically hyponatremic at baseline), hypokalemia with potassium of 3.0 and an elevated bilirubin and transaminases consistent with an alcohol pattern AST being twice the ALT. His toxicology screen was positive only for cannabis and his other alcohol level on admission was 211. He was admitted to the medical floor and placed on a phenobarbital taper, supportive medications for withdrawal symptoms, and thiamine and folate. With his hyponatremia on admission we held the hydrochlorothiazide component of his antihypertensives and this was discontinued at discharge transitioning him to amlodipine and losartan only. His withdrawal was uneventful and by 09/07/2023 he indicated he was feeling quite well with regards to his withdrawal. He was evaluated by 180 during his hospitalization and they gave him follow-up information for 180 follow-up. He is to call make an appointment. He declined inpatient rehab. With regards to his sodium initially was given some fluids by the emergency department and transiently his sodium went up but then dropped again. We implemented a fluid restriction to 1750 cc daily and his sodium at discharge was 130. I have instructed him to continue sodium restriction to 2 L daily and discontinue his hydrochlorothiazide at discharge. I have asked that he get a basic metabolic profile in the next 5 to 7 days to recheck his electrolytes as he was also noted to be intermittently hypokalemic during his hospital course. I have asked him to follow-up with his primary care physician within the next 2 weeks. He was discharged home in stable condition on 09/07/2023. Discharge diagnoses: Acute alcohol withdrawal Chronic alcohol abuse Alcoholic hepatitis-resolved Hyperbilirubinemia Acute on chronic hyponatremia Hypokalemia-resolved COPD CAD Essential HTN Hyperlipidemia GERD History of OA Insomnia Tobacco abuse Marijuana use Physical Exam Const alert, oriented x3, no apparent distress and average body habitus; Negative for healthy appearing or well nourished Constitutional Narrative: Middle-aged, white male, sitting up on the edge of the bed eating breakfast, appears older than stated age, nontoxic, appears comfortable General Appearance: cooperative, comfortable, well kempt and well developed Exam Limitations: no limitations Nutritional Appearance: thin HEENT normocephalic, head/scalp atraumatic, hearing grossly normal bilaterally and moist oral mucous membranes HEENT Narrative: Mallampati 2, no thrush Eyes PERRL, EOMs intact bilaterally and conjunctivae normal Eyes Narrative: No scleral icterus Neck no lymphadenopathy and supple Neck Narrative: Trachea midline, no thyroid enlargement Resp normal respiratory effort, no retractions, no use of accessory muscles and clear to auscultation bilaterally Resp Narrative: Diffusely diminished but clear Auscultation: Negative for rales, rhonchi or wheezes Cardio regular rate, regular rhythm, S1 normal heart sound, S2 normal heart sound, no murmurs, no rub, no gallops and no clicks GI normal to inspection, nondistended, normoactive bowel sounds, soft to palpation and non-tender GI Narrative: Mild hepatomegaly Extremity no clubbing, cyanosis or edema Extremity Narrative: Pedal pulses are 2+ Skin no rashes or lesions noted, no wounds, skin turgor normal and no jaundice Neuro oriented x3, CN's II-XII intact bilaterally, moves all extremities and no focal motor deficits Neuro Narrative: No significant tremor noted Speech: speech normal Psych affect normal Psych Narrative: Pleasant, interacts appropriately Weight / BMI Weight Weight: 70.6 kg Body Mass Index (BMI) 21.7 ABG / Lab / Microbiology Data 09/04/23 07:05 09/07/23 05:05 Laboratory: Laboratory Results - last 24 hr 09/07/23 05:05: Sodium 130 L, Potassium 3.5, Chloride 99, Carbon Dioxide 24.0, Anion Gap 7, BUN 6 L, Creatinine 0.46 L, Estim Creat Clear Calc 174.79, Est GFR (MDRD) Af Amer 238, Est GFR (MDRD) Non-Af 197, BUN/Creatinine Ratio 12.9, Glucose 101, Calcium 8.6 D/C Instructions Discharge Diet: No restrictions (Restrict fluid intake to 2 L daily) Discharge Activity: Return to Normal Activity Return to work on: 09/08/23 Meaningful Use Info Meaningful Use Meaningful Use Diagnoses (Choose all that apply): None applicable Ischemic Stroke Statin Dosing Therapy Reference: STATIN DOSE THERAPY REFERENCE: * Patients > 75 years receive moderate or high dose statin therapy. * Patients 75 years or YOUNGER should receive HIGH intensity statin dose unless contraindicated. You will be required to document reason for non-treatment if statin daily dose does not meet guidelines. HIGH DOSE STATIN THERAPY DAILY Atorvastatin > than or = to 40 mg Rosuvastatin > than or = to 20 mg Amlodipine + Atorvastatin > than or = to 2.5/40 mg Ezetimibe + Simvastatin 10/80 mg Simvastatin 80mg Discharge Plan Admission Admit Date/Time: 09/04/23 08:54 Primary Reason for Your Visit: Alcohol detox Attending Provider: Eladia Mcghee Primary Care Provider: Nichole Grove Instructions Additional Instructions / Restrictions: 1. Since your sodium was low, we stopped your losartan/hydrochlorothiazide as hydrochlorothiazide can contribute to low sodium. I will have you continue the losartan portion of this medication so new prescription was sent to your pharmacy for losartan 50 mg daily. 2. Restrict your fluid intake to 2 L daily. 3. Please call your primary care physician and have him draw a basic metabolic profile to recheck your sodium and potassium in 5 to 7 days. 4. Call 180 and schedule follow-up appointment as instructed by 180 liaison Discharge Orders/Prescriptions Prescriptions: New losartan 50 mg tablet 50 mg PO DAILY Qty: 30 1RF Continued multivitamin [Daily Multi-Vitamin] Tablet 1 tab PO DAILY Qty: 30 0RF omeprazole 20 mg capsule,delayed release(DR/EC) 20 mg PO DAILY atorvastatin 40 mg tablet 40 mg PO DAILY amlodipine 10 mg tablet 10 mg PO DAILY Qty: 90 1RF aspirin 81 mg tablet,chewable 81 mg PO BREAKFAST Qty: 90 3RF trazodone 50 mg tablet 50 mg PO QHS PRN (Reason: sleep) Qty: 30 2RF Discontinued losartan-hydrochlorothiazide 50-12.5 mg tablet 1 tab PO DAILY Qty: 90 1RF Referrals / Follow Up: Nichole Grove MD [Primary Care Provider] - Within 2 Weeks Disposition Disposition (needs filled in before D/C Order can be placed): Home, Self Care Charges/Coding Visit Charges Inpatient E&M: 66462 Disch Hosp >30min
== END 2023-09-07 11:41 | disposition home or self-care (01) | DRG 775 ==
LOC: ED 07:59 → PCU 09:44
PROVIDERS: Admitting Provider Internal Medicine; Emergency Provider Emergency Medicine; PCP Internal Medicine; Visit Provider Internal Medicine
DX: F10.139 Alcohol abuse with withdrawal, unspecified (principal); E87.1 Hypo-osmolality and hyponatremia; K70.10 Alcoholic hepatitis without ascites; J44.9 Chronic obstructive pulmonary disease, unspecified; I10 Essential (primary) hypertension; F12.90 Cannabis use, unspecified, uncomplicated; E78.5 Hyperlipidemia, unspecified; I25.10 Atherosclerotic heart disease of native coronary artery without angina pectoris; E87.6 Hypokalemia; K21.9 Gastro-esophageal reflux disease without esophagitis; I25.2 Old myocardial infarction; G47.00 Insomnia, unspecified; Z79.82 Long term (current) use of aspirin; Z79.899 Other long term (current) drug therapy; Z86.73 Personal history of transient ischemic attack (TIA), and cerebral infarction without residual deficits; Z87.891 Personal history of nicotine dependence; Y90.7 Blood alcohol level of 200-239 mg/100 ml
CPT/HCPCS: 36415; 80048; 80053; 80307; 82077; 83735; 83930; 83935; 84100; 84300; 84443; 84550; 85025; 94640; 94668; 99284; J7030; A4216

== ENCOUNTER 2023-10-13 06:39 | Inpatient (IN) | payer MEDICAID, SELFPAY ==
[2023-10-13] VITALS (15 sets, daily range): BP systolic 128–144; BP diastolic 74–93; PULSE 98–119; RESP 16–24; TEMP 36.6–38.6; O2SAT 94–100; BMI 22.8; BMI 21.6
--- NOTE | 2023-10-13 07:07 | EKG12_ITS ---
Test Reason : SOB Blood Pressure : / mmHG Vent. Rate : 099 BPM Atrial Rate : 099 BPM P-R Int : 138 ms QRS Dur : 098 ms QT Int : 352 ms P-R-T Axes : 029 -09 048 degrees QTc Int : 451 ms Sinus rhythm with Premature atrial complexes Septal infarct (cited on or before 13-DEC-2022) Abnormal ECG Confirmed by ANA MENDOSA, HOLLY ([id number]), editorial manager LATRICE SMITH ([id number]) on 10/15/2023 9:26:49 AM Referred By: Confirmed By:HOLLY PEREZ MD
--- NOTE | 2023-10-13 07:08 | EX.ED.DYSGE1 ---
HPI History of Present Illness Chief Complaint: Cold Sx Informant: patient Narrative Narrative: 58-year-old male presenting to the emergency room with productive cough nasal drainage. Patient states for about 5 weeks he has had a green nasal drainage and cough that has been productive. He notes that he has used family's inhaler intermittently. He has an underlying history of COPD hypertension stroke and alcoholism. The patient denies any fever. He states that he is very fatigued. He only gets a few hours of sleep before he is awoken with his cough. He denies any known fevers. Over the past 5 weeks he has not contacted primary care because it takes forever to get in. He is to states that he has been thinking about coming to the emergency room over the past several days. Patient notes he took his morning medications. He has not noted his resting heart rate is. Patient reportedly has a history of alcoholism. He states that he is continue to drink but not daily and very little amounts. No history of HIV or immunosuppressive medications. [facility] Medical History Hyperbilirubinemia Depression Smoker COPD (chronic obstructive pulmonary disease) History of CVA (cerebrovascular accident) Tobacco use Desire for detoxification Old myocardial infarction Hyperlipidemia Hyperglycemia Ischemic stroke History of recent stroke Alcohol abuse Right thalamic stroke Wears glasses Anxiety Marijuana use Alcohol use Arthritis Back pain Smoker History of pain when walking Hx of fracture of leg GERD (gastroesophageal reflux disease) Chronic hyponatremia Alcohol abuse Tobacco use Hypertension Home Medications ?Medication ?Instructions ?Recorded ?Last Taken ?Type aspirin 81 mg chewable tablet 81 mg PO BREAKFAST HEART HEALTH 05/29/23 09/04/23 Rx #90 tabs trazodone 50 mg tablet 50 mg PO QHS PRN sleep #30 tabs 05/29/23 Unknown Rx multivitamin (Daily Multi-Vitamin 1 tab PO DAILY #30 tabs 06/28/23 09/04/23 Rx tablet) atorvastatin 40 mg tablet 40 mg PO DAILY CHOLESTEROL 09/04/23 09/04/23 History omeprazole 20 mg capsule,delayed 20 mg PO DAILY ACID REFLUX 09/04/23 09/04/23 History release losartan 50 mg tablet 50 mg PO DAILY #30 tabs 09/07/23 Unknown Rx amlodipine 10 mg tablet 10 mg PO DAILY BLOOD PRESSURE #90 09/24/23 Unknown Rx tabs Allergy/AdvReac Type Severity Reaction Status Date / Time lisinopril Allergy Angioedema Verified 09/04/23 06:54 aspirin AdvReac HEARTBURN Verified 09/04/23 06:54 codeine AdvReac NIGHTMARES Verified 09/04/23 06:54 Family History Other CAD (coronary artery disease) Cancer Diabetes Heart disease Kidney disease Myocardial infarction Seizures Surgical History History of colonoscopy (07/10/21) History of tonsillectomy and adenoidectomy Hx of removal of testicle Social History household members: none housing: apartment Smoking Status: Current some day smoker tobacco type: cigarettes Tobacco: How many years used: 42 how long ago did patient quit smokin years quit 2018 alcohol intake: former details: Patient drinks intermittently-predominantly seems to binge drink at this po substance use type: marijuana and other details: Marijuana occasionally ROS ROS ED ROS Narrative Generalized fatigue Constitutional Constitutional ED: Denies chills, fever(s) or weight loss Eyes Eyes: Denies change in vision or diplopia ENT ENT ED: Reports rhinorrhea and other Details: Nasal congestion ; Denies ear pain or sore throat Cardiovascular Cardiovascular: Denies chest pain, orthopnea, palpitations or racing heartbeat Respiratory/Chest Respiratory/Chest: Reports cough and dyspnea; Denies orthopnea Gastrointestinal Gastrointestinal: Denies abdominal pain, diarrhea, nausea or vomiting Genitourinary Genitourinary ED: Denies dysuria, hematuria or urinary frequency Musculoskeletal Musculoskeletal: Denies arthralgias or myalgias Integumentary Denies abscess or rash Neurologic Neurologic: Denies headache(s) or weakness Psychiatric Psychiatric: Denies anxiety, depression, suicidal ideation or suicidal thoughts Endocrine Endocrinology: Denies polydipsia, polyphagia or polyuria Allergic/Immunologic Allergic/Immunologic ED: Denies mouth swelling, tongue swelling or urticaria EXAM Physical Exam Const Vital Signs: 10/13/23 06:40 10/13/23 06:44 10/13/23 06:45 Temperature 97.8 F Temperature Source Oral Pulse Rate 119 H Respiratory Rate 22 H Respiratory Effort Normal Normal Respiratory Depth Normal Respiratory Pattern Normal Normal Blood Pressure 130/78 H Blood Pressure Mean 95 Pulse Ox 98 Oxygen Delivery Method Room Air Room Air 10/13/23 07:25 10/13/23 07:25 Temperature Temperature Source Pulse Rate 111 H Respiratory Rate 18 Respiratory Effort Respiratory Depth Respiratory Pattern Blood Pressure Blood Pressure Mean Pulse Ox 98 Oxygen Delivery Method Room Air Positive well nourished and well developed General Appearance ED: well developed HEENT Reports normocephalic, head/scalp atraumatic and moist mucous membranes HEENT Narrative: Mild turbinate edema Eyes PERRL and EOMs intact bilaterally Neck no lymphadenopathy, supple and no JVD Resp normal respiratory effort Auscultation: rhonchi throughout and wheezes expiratory wheezes and throughout Cardio regular rate, regular rhythm and no murmurs Rate: tachycardic GI normal to inspection, nondistended, normoactive bowel sounds and non-tender Palpation: soft Back/Spine no CVA tenderness and normal ROM Extremity normal to inspection General Extremety ED: Negative for edema General Extremity: Negative for edema Neuro oriented x3 and CN's II-XII intact bilaterally Sensorium / Orientation: alert Motor Exam: strength 5/5 throughout Psych mental status grossly normal Mood & Affect: Negative for depressed or tearful Skin no rashes or lesions noted and no wounds MDM MDM MDM Narrative Medical decision making narrative: Differential diagnosis includes but not limited to pneumonia (viral bacterial aspiration,etc), bronchitis, pleural effusion, viral syndrome sinusitis electrolyte abnormalities anemia renal dysfunction My independent interpretation of the chest x-ray is left lower lobe consolidation. White count returns at 30.5 with a hemoglobin of 9.6 platelet count of 534. Sodium 126 potassium 3.1 creatinine 0.46 glucose 127 magnesium is 1. Alkaline phosphatase 169 normal AST and ALT.lactic acid 1.4. Blood cultures were obtained. Sputum culture obtained. I spoke with the patient and he is comfortable with an HIV test. This will be obtained and sent. Patient received Rocephin and azithromycin as well as DuoNeb. Plan will be admission to the hospital. History & Record Review Discussion w/independent historian: Patient Additional record(s) reviewed:: Prior ED visit and Prior labs Lab Data Attestation: I reviewed the patient's lab results. Labs: Laboratory Results - last 24 hr 10/13/23 10/13/23 07:17 07:51 WBC 30.5 H* RBC 3.48 L Hgb 9.6 L Hct 29.4 L MCV 84.5 MCH 27.6 MCHC 32.7 RDW Std Deviation 50.4 H RDW Coeff of Wen 16.5 H Plt Count 534 H MPV 8.9 Immature Gran % (Auto) 0.800 Neut % (Auto) 86.4 H Lymph % (Auto) 4.8 L [place] % (Auto) 7.6 Eos % (Auto) 0.0 Baso % (Auto) 0.4 Absolute Neuts (auto) 26.4 H Absolute Lymphs (auto) 1.45 Nucleated RBC % 0 Sodium 126 L Potassium 3.1 L Chloride 94 L Carbon Dioxide 24.0 Anion Gap 8 BUN 5 L Creatinine 0.46 L Estim Creat Clear Calc 181.71 Est GFR (MDRD) Af Amer 242 Est GFR (MDRD) Non-Af 200 BUN/Creatinine Ratio 10.9 Glucose 127 H Lactic Acid 1.4 Calcium 8.6 Magnesium 1.0 L Total Bilirubin 0.40 Direct Bilirubin 0.23 AST 23 ALT 15 L Alkaline Phosphatase 169 H Total Protein 7.0 Albumin 1.8 L Globulin 5.2 H Radiography Diagnostic Testing: Clinical Impression(s) from Imaging Studies Chest X-Ray 10/13/23 07:25 IMPRESSION: Left lower lobe consolidation. Hyperinflation. Electronically Signed: Colin Velez MD at 8:06 EDT , EKG Initial EKG: Attestation: I personally reviewed and interpreted this EKG as follows: Comments: Sinus rhythm with a ventricular rate of 99 bpm. PACs noted. Prior EKG tracings: available for review Prior: Unchanged Management Discussion w/another healthcare provider: Hospitalist Discharge Plan Dx/Rx/DC Orders Clinical Impression: Pneumonia, Acute hypokalemia, Anemia, Acute hyponatremia, Hypomagnesemia Disposition Disposition: Acute Care [facility]
[2023-10-13] MEDS: Ipratropium/Albuterol Sulfate 3 ML AMPUL.NEB INHALATION ×3 (07:21→19:55)
--- NOTE | 2023-10-13 07:25 | RAD_ITS ---
STUDY: X-RAY CHEST REASON FOR EXAM: Male, 58 years old. Productive cough. TECHNIQUE: Single AP portable view of the chest. COMPARISON: Comparison is made with prior study December 13, 2022. FINDINGS: EKG electrodes are seen. Consolidation in the left lower lobe. Hyperinflation. Calcified granuloma in the right midlung laterally. There is no demonstrated pleural abnormality. Normal size heart. Normal mediastinum and june. Normal visualized pulmonary arteries. Normal visualized aortic arch and descending thoracic aorta. There are diffuse degenerative changes of the visualized thoracic spine. Normal visualized ribs, clavicles, and shoulders. There is no demonstrated abnormality of the visualized soft tissue structures of the upper abdomen. RAD/Chest 1 View (Portable) IMPRESSION: Left lower lobe consolidation. Hyperinflation. Electronically Signed: Colin Velez MD at 8:06 EDT ,
[2023-10-13 07:29] LABS: Absolute Lymphocyte Count 1.45 X10^3/uL (0.83-4.51); Absolute Neutrophil Count 26.4 X10^3/uL (2.0-7.7); Basophil# 0.13 X10^3/uL; Basophil% 0.4 % (0-1); Eosinophil# 0.01 X10^3/uL; Hematocrit 29.4 % (40-54); Hemoglobin 9.6 g/dL (13.0-16.5); Lymphocyte # 1.45 X10^3/ul (0.83-4.51); Lymphocyte % 4.8 % (19-41); Mean Corp Hgb Conc 32.7 g/dL (32-36); Mean Corpuscular Hgb 27.6 pg (27.0-32.0); Mean Corpuscular Volume 84.5 fL (80-94); Mean Platelet Vol. 8.9 fl (6.2-12.0); Monocyte# 2.31 X10^3/uL; Monocyte% 7.6 % (0-10); NRBC Flagged by Analyzer 0 % (0-5); Neutrophil # 26.36 X10^3/uL (2.7-7.7); Neutrophil % 86.4 % (47-70); POSITIVE COUNT YES; POSITIVE DIFFERENTIAL YES; Platelet Count 534 K/mm3 (150-450); RBC Distribution Width CV 16.5 % (11.6-14.6); RBC Distribution Width SD 50.4 fl (35.1-43.9); Red Blood Count 3.48 M/mm3 (4.6-6.2)
[2023-10-13 07:35] LABS: Differential Indicated SCAN CRITERIA MET; White Blood Count 30.5 K/mm3 (4.4-11.0)
[2023-10-13 07:52] LABS: AST(SGOT) 23 U/L (15-37); Alanine Aminotransfer ALT/SGPT 15 U/L (16-61); Albumin, Serum 1.8 g/dL (3.2-5.0); Alkaline Phosphatase 169 U/L (45-117); Anion Gap 8 (5-15); BUN 5 mg/dL (7-18); BUN/Creat Ratio 10.9 RATIO (10-20); Bilirubin, Direct 0.23 mg/dL (0.00-0.30); Calcium,Total 8.6 mg/dL (8.5-10.1); Chloride 94 mmol/L (98-107); Creatinine, Serum 0.46 mg/dL (0.70-1.30); EST Glomerular Filtration Rate 200 mL/min (>60); Est Glom Filt Rate - Afr Amer 242 mL/min (>60); Estimated Creatinine Clearance 181.71 ml/min; Globulin 5.2 g/dL (2.2-4.2); Glucose 127 mg/dL (74-106); Potassium 3.1 mmol/L (3.5-5.1); Sodium Level 126 mmol/L (136-145)
[2023-10-13] MEDS: Ceftriaxone 1 GM/50 ML BAG IV (07:57)
[2023-10-13] MEDS: Potassium Chloride Oral Tablet 20 MEQ 40 MEQ PO (08:22)
[2023-10-13] MEDS: 0.9% Normal Saline (1000mL) 1,000 ML 200 ML IV (08:22)
[2023-10-13 08:24] LABS: Lactic Acid 1.4 mmol/L (0.4-1.9)
[2023-10-13] MEDS: Azithromycin 500 MG in Dextrose 5%-Water (250mL Bag) 250 ML 250 MG IV (08:36)
--- NOTE | 2023-10-13 08:59 | NURSING ---
DR FARIHA RIDDLE
--- NOTE | 2023-10-13 09:04 | NURSING ---
PCU FRIED PNEUMONIA
[2023-10-13 09:10] LABS: HIV - WCH Non-Reactive (Nonreactive)
--- NOTE | 2023-10-13 09:22 | PCM.HP.STD ---
HPI - General General Date of Admission: 10/13/23 Date of Service: 10/13/23 Chief Complaint: Shortness of breath, increased cough HPI Narrative YVON KEITH, is a 58-year-old male history of Hypertension, CVA, alcoholism, COPD, GERD presented to [facility] ED 10/13/2023 with productive cough and nasal drainage. Has had green nasal drainage with cough for 5 weeks and has been using a family members inhaler intermittently. Patient also very fatigued and only is getting a couple hours of sleep at night before he is woken with a cough. In the ED he has a white blood cell count of 30, hemoglobin of 9.6 and platelet count of 534. Sodium 132 with a potassium of 3.3 and magnesium of 1. Chest x-ray with left lower lobe consolidation and hyperinflation. Patient mildly tachycardic with heart rate in 110's, blood pressure within normal limits, is mildly tachypneic with respiratory rate of 24 and saturating 94% on room air. Patient given Rocephin and azithromycin and DuoNeb and given concern for pneumonia and patient's elevated white blood cell count hospitalist contacted for admission. Patient evaluated at bedside and reports increased sinus drainage for 5 weeks with foul-smelling productive cough for 3 weeks intermittent chills, headache and worsening shortness of breath on exertion for the past couple weeks. Had some diarrhea this morning with no blood in stool. No chest pain, little bit of morning nausea with his sinus drainage. Had a family member diagnosed with COVID about a week ago. No recent antibiotics or steroids. [facility] Medical History Hyperbilirubinemia Depression Smoker COPD (chronic obstructive pulmonary disease) History of CVA (cerebrovascular accident) Tobacco use Desire for detoxification Old myocardial infarction Hyperlipidemia Hyperglycemia Ischemic stroke History of recent stroke Alcohol abuse Right thalamic stroke Wears glasses Anxiety Marijuana use Alcohol use Arthritis Back pain Smoker History of pain when walking Hx of fracture of leg GERD (gastroesophageal reflux disease) Chronic hyponatremia Alcohol abuse Tobacco use Hypertension Home Medications ?Medication ?Instructions ?Recorded ?Last Taken ?Type aspirin 81 mg chewable tablet 81 mg PO [facility] 05/29/23 09/04/23 Rx #90 tabs trazodone 50 mg tablet 50 mg PO QHS PRN sleep #30 tabs 05/29/23 Unknown Rx multivitamin (Daily Multi-Vitamin 1 tab PO DAILY #30 tabs 06/28/23 09/04/23 Rx tablet) atorvastatin 40 mg tablet 40 mg PO DAILY CHOLESTEROL 09/04/23 09/04/23 History omeprazole 20 mg capsule,delayed 20 mg PO DAILY ACID REFLUX 09/04/23 09/04/23 History release losartan 50 mg tablet 50 mg PO DAILY #30 tabs 09/07/23 Unknown Rx amlodipine 10 mg tablet 10 mg PO DAILY BLOOD PRESSURE #90 09/24/23 Unknown Rx tabs Allergy/AdvReac Type Severity Reaction Status Date / Time lisinopril Allergy Angioedema Verified 09/04/23 06:54 aspirin AdvReac HEARTBURN Verified 09/04/23 06:54 codeine AdvReac NIGHTMARES Verified 09/04/23 06:54 Family History Other CAD (coronary artery disease) Cancer Diabetes Heart disease Kidney disease Myocardial infarction Seizures Surgical History History of colonoscopy (07/10/21) History of tonsillectomy and adenoidectomy Hx of removal of testicle Social History household members: none housing: apartment Smoking Status: Current some day smoker tobacco type: cigarettes Tobacco: How many years used: 42 how long ago did patient quit smokin years quit 2019 alcohol intake: former details: Patient drinks intermittently-predominantly seems to binge drink at this po substance use type: marijuana and other details: Marijuana occasionally ROS ROS Narrative General: Has had some chills HENT: Nasal drainage and headaches denies sore throat EYES: Denies changes in vision Resp: Increased productive cough and increased shortness of breath Cardiac: Denies chest pain GI: Denies abdominal pain, 1 episode of diarrhea this morning denies nausea/vomiting : Denies changes in urination Extremity: Denies swelling MSK: Generally feels unwell Neuro: Denies any numbness/tingling Heme: Denies any bleeding or bruising Skin: Denies rashes Psychiatric: No complaints voiced Vital Signs Vital Signs Vital Signs: 10/13/23 06:40 10/13/23 06:44 10/13/23 06:45 Temperature 97.8 F Temperature Source Oral Pulse Rate 119 H Respiratory Rate 22 H Respiratory Effort Normal Normal Respiratory Depth Normal Respiratory Pattern Normal Normal Blood Pressure 130/78 H Blood Pressure Mean 95 Pulse Ox 98 Oxygen Delivery Method Room Air Room Air 10/13/23 07:25 10/13/23 07:25 10/13/23 08:37 Temperature Temperature Source Pulse Rate 111 H 118 H Respiratory Rate 18 24 H Respiratory Effort Respiratory Depth Respiratory Pattern Blood Pressure 137/93 H Blood Pressure Mean 107 Pulse Ox 98 94 Oxygen Delivery Method Room Air Room Air 10/13/23 08:50 Temperature 97.9 F Temperature Source Pulse Rate 113 H Respiratory Rate 24 H Respiratory Effort Respiratory Depth Respiratory Pattern Blood Pressure 136/86 H Blood Pressure Mean 102 Pulse Ox 95 Oxygen Delivery Method Weight Weight: 74.3 kg Body Mass Index (BMI) 22.8 Physical Exam Narrative General: Alert, oriented HEENT: Atraumatic, normocephalic Eyes: Anicteric, normal conjunctiva, extraocular movements grossly intact Neck: Supple Respiratory: Normal respiratory effort at rest, slight increased respiratory effort with conversation, diminished at left lower base, no wheezes appreciated Cardiovascular: Tachycardic and regular rhythm GI: Soft, nontender, nondistended Extremities: No edema Musculoskeletal: Moving all extremities Neuro: No overt focal neurological deficits Skin: No rashes appreciated Psych: Cooperative Results Lab / Micro Data 10/13/23 07:17 10/13/23 07:17 Labs: Laboratory Results - last 24 hr 10/13/23 07:17: WBC 30.5 H*, RBC 3.48 L, Hgb 9.6 L, Hct 29.4 L, MCV 84.5, MCH 27.6, MCHC 32.7, RDW Std Deviation 50.4 H, RDW Coeff of Wen 16.5 H, Plt Count 534 H, MPV 8.9, Immature Gran % (Auto) 0.800, Neut % (Auto) 86.4 H, Lymph % (Auto) 4.8 L, [place] % (Auto) 7.6, Eos % (Auto) 0.0, Baso % (Auto) 0.4, Absolute Neuts (auto) 26.4 H, Absolute Lymphs (auto) 1.45, Nucleated RBC % 0, Sodium 126 L, Potassium 3.1 L, Chloride 94 L, Carbon Dioxide 24.0, Anion Gap 8, BUN 5 L, Creatinine 0.46 L, Estim Creat Clear Calc 181.71, Est GFR (MDRD) Af Amer 242, Est GFR (MDRD) Non-Af 200, BUN/Creatinine Ratio 10.9, Glucose 127 H, Calcium 8.6, Magnesium 1.0 L, Total Bilirubin 0.40, Direct Bilirubin 0.23, AST 23, ALT 15 L, Alkaline Phosphatase 169 H, Total Protein 7.0, Albumin 1.8 L, Globulin 5.2 H 10/13/23 07:51: Lactic Acid 1.4 10/13/23 08:09: HIV 1&2 Antibody Non-Reactive Imaging Radiology Impression Chest X-Ray 10/13/23 07:25 IMPRESSION: Left lower lobe consolidation. Hyperinflation. Electronically Signed: Colin Velez MD at 8:06 EDT Reading Location ID and State: [address] [place] [address] , Service support , Assessment & Plan Assessment/Plan (1) Community acquired pneumonia: (2) Hypomagnesemia: (3) GERD (gastroesophageal reflux disease): QUALIFIERS: Esophagitis presence: esophagitis presence not specified Qualified Code(s): K21.9 - Gastro-esophageal reflux disease without esophagitis (4) COPD (chronic obstructive pulmonary disease): QUALIFIERS: COPD type: unspecified COPD Qualified Code(s): J44.9 - Chronic obstructive pulmonary disease, unspecified (5) Chronic hyponatremia: (6) History of alcohol abuse: PLAN: Plan #Community-acquired pneumonia -Imaging: Left lower lobe pneumonia -Patient tachycardic, productive foul-smelling sputum, significantly elevated white blood cell count, short of breath and generally feels unwell -DuoNebs and as needed albuterol -Sputum culture, COVID and flu, respiratory panel -Urine antigens -Mucinex, I/S -Rocephin and azithromycin -Patient does have COPD with increased productive sputum and shortness of breath but no wheezes and this seems related to pneumonia, will start with antibiotics and hold off on steroids but can consider if patient develops wheezes or is not improving as expected # Chronic COPD -Nebs as above -Does not necessarily seem to be in exacerbation but low threshold to add steroids # Leukocytosis -Significantly elevated, begin antibiotics, sputum culture, recheck in a.m. -If not significantly improving may need CT of the chest or further infectious workup # History of alcohol abuse -Now drinks 1-2 beers every 2 days -Does not appear to be actively withdrawing -Without thiamine and folate # Hypomagnesemia/hypokalemia -Replace -Recheck in a.m. #Anemia -Appears to have chronic anemia but is 9.6 and baseline seems closer to 11 -Given elevated plt will check iron panel -Will also check b12 and folate Chronic medical problems: #GERD -Continue PPI # Chronic hyponatremia -Appears to be at baseline # History of right thalamic stroke -Continue home meds, supportive care #Tobacco use -Advise cessation -Nicotine replacement available if desired #HTN -Continue amlodipine #DVT ppx: SCDs Alexa Freedman MD Time spent in the patient's overall evaluation,decision-making process, review of diagnostic data, adjustment of management, discussion with other providers, nursing nursing and ancillary staff involved in patient's care documentation, 57 Minutes Charges/Coding Visit Charges Inpatient E&M: 77709 Init Hosp L2
[2023-10-13 09:29] LABS: International Normalized Ratio 1.3; Prothrombin Time (Protime)PT. 16.1 SECONDS (11.7-14.9)
[2023-10-13 09:30] LABS: Partial Thromboplast Time 36.7 Seconds (24.1-36.2)
[2023-10-13] MEDS: Magnesium Sulfate 2 GM in Dextrose 5%-Water (100mL Bag) 100 ML IV (09:38)
[2023-10-13] MEDS: Acetaminophen 325 MG Tablet 650 MG PO ×2 (11:50→19:32)
[2023-10-13] MEDS: 0.9% Normal Saline (1000mL) 1,000 ML 999 ML IV (11:53)
[2023-10-13] MEDS: guaiFENesin 1,200 MG Tablet 1200 MG PO ×2 (12:48→21:36)
[2023-10-13] MEDS: Piperacil/Tazobactam 4.5 GM in 0.9% Normal Saline (100mL MB+) 100 ML IV (12:53)
[2023-10-13] MEDS: 0.9% Normal Saline (1000mL) 1,000 ML 75 ML IV (13:03)
[2023-10-13] MEDS: Vancomycin HCl 1,750 MG in 0.9% Normal Saline (500mL Bag) 500 ML 250 MG IV (14:04)
--- NOTE | 2023-10-13 14:59 | PCM.RX.CS ---
Consult Antibiotic Management Pharmacy has been consulted to manage selected antibiotic: Vancomycin Type of Intervention Type of Consult: New start Suspected Infection Suspected Infection: Pneumonia Labs Labs: Sodium 126 mmol/L (136-145) L 10/13/23 07:17 Potassium 3.1 mmol/L (3.5-5.1) L 10/13/23 07:17 Chloride 94 mmol/L (98-107) L 10/13/23 07:17 Carbon Dioxide 24.0 mmol/L (21.0-32.0) 10/13/23 07:17 Anion Gap 8 (5-15) 10/13/23 07:17 BUN 5 mg/dL (7-18) L 10/13/23 07:17 Creatinine 0.46 mg/dL (0.70-1.30) L 10/13/23 07:17 Est GFR (MDRD) Af Amer 242 mL/min (>60) 10/13/23 07:17 Est GFR (MDRD) Non-Af 200 mL/min (>60) 10/13/23 07:17 BUN/Creatinine Ratio 10.9 RATIO (10-20) 10/13/23 07:17 Glucose 127 mg/dL (74-106) H 10/13/23 07:17 Microbiology Microbiology: Microbiology 10/13/23 11:14 Mucosa - Nasopharyngeal Coronavirus COVID-19 PCR - Final 10/13/23 08:01 Sputum, Expectorated/Coughed Gram Stain - Final Goal Trough Goal Trough: 15-20 mcg/mL Pharmacy Plan for Drug Dosing Pharmacy Plan for Drug Dosing: NEW START IV VANCOMYCIN Consulting Physician: Dr. Freedman Indication: Pneumonia Goal Trough: 15-20 SrCr: 0.46 CrCl: > 100mL/min Comments: Patient had loading dose of 1750mg IV x1 ordered and administered 10/12 @1404 Vancomycin Dose: 1000mg IV Q8h to start 10/13/23 @2200 Pending Level: 10/14/23 @1330, prior to 4th total dose of vancomycin per protocol Pharmacy Service will continue to monitor and adjust dosing as required.
[2023-10-13] MEDS: traZODone 50 MG Tablet PO (21:27)
[2023-10-13] MEDS: Vancomycin IV 1,000 MG/200 ML BAG 200 MG IV (21:33)
[2023-10-13] MEDS: Piperacil/Tazobactam 3.375 GM in 0.9% Normal Saline (50mL MB+) 50 ML IV (22:38)
[2023-10-13] MEDS: Benzonatate 100 MG Capsule 200 MG PO (22:43)
[2023-10-14] VITALS (9 sets, daily range): BP systolic 132–148; BP diastolic 76–88; PULSE 94–111; RESP 16–18; TEMP 36.6–37.2; O2SAT 94–99
[2023-10-14] MEDS: Acetaminophen 325 MG Tablet 650 MG PO ×3 (01:36→20:35)
[2023-10-14] MEDS: Ipratropium/Albuterol Sulfate 3 ML AMPUL.NEB INHALATION ×4 (01:40→19:45)
[2023-10-14] MEDS: Vancomycin IV 1,000 MG/200 ML BAG 200 MG IV (05:35)
[2023-10-14] MEDS: 0.9% Saline Lock 10 ML Syringe IV ×2 (06:44→20:40)
[2023-10-14] MEDS: Piperacil/Tazobactam 3.375 GM in 0.9% Normal Saline (50mL MB+) 50 ML IV ×3 (06:45→20:40)
[2023-10-14 06:46] LABS: Absolute Neutrophil Count 18.5 X10^3/uL (2.0-7.7); Basophil# 0.07 X10^3/uL; Basophil% 0.3 % (0-1); Eosinophil# 0.02 X10^3/uL; Eosinophils% 0.1 % (0-5); Hematocrit 28.4 % (40-54); Hemoglobin 9.4 g/dL (13.0-16.5); Lymphocyte % 8.4 % (19-41); Mean Corp Hgb Conc 33.1 g/dL (32-36); Mean Corpuscular Hgb 27.6 pg (27.0-32.0); Mean Corpuscular Volume 83.3 fL (80-94); Mean Platelet Vol. 8.8 fl (6.2-12.0); Monocyte% 8.8 % (0-10); NRBC Flagged by Analyzer 0 % (0-5); Neutrophil # 18.45 X10^3/uL (2.7-7.7); Neutrophil % 81.5 % (47-70); POSITIVE DIFFERENTIAL YES; Platelet Count 525 K/mm3 (150-450); RBC Distribution Width CV 16.8 % (11.6-14.6); RBC Distribution Width SD 51.2 fl (35.1-43.9); Red Blood Count 3.41 M/mm3 (4.6-6.2); White Blood Count 22.7 K/mm3 (4.4-11.0)
[2023-10-14 06:49] LABS: Differential Indicated SCAN CRITERIA MET
[2023-10-14 07:31] LABS: ALB/GLOB Ratio 0.3 RATIO (0.9-2.4); AST(SGOT) 21 U/L (15-37); Alanine Aminotransfer ALT/SGPT 15 U/L (16-61); Albumin, Serum 1.6 g/dL (3.2-5.0); Alkaline Phosphatase 143 U/L (45-117); Anion Gap 7 (5-15); BUN 3 mg/dL (7-18); BUN/Creat Ratio 6.3 RATIO (10-20); Calcium,Total 8.6 mg/dL (8.5-10.1); Chloride 98 mmol/L (98-107); Creatinine, Serum 0.48 mg/dL (0.70-1.30); EST Glomerular Filtration Rate 191 mL/min (>60); Est Glom Filt Rate - Afr Amer 231 mL/min (>60); Estimated Creatinine Clearance 164.78 ml/min; Ferritin 158 ng/mL (26-388); Globulin 5.1 g/dL (2.2-4.2); Glucose 142 mg/dL (74-106); Iron 7 ug/dL (65-175); Iron Binding Capacity,Total 248 ug/dL (250-450); Magnesium 1.6 mg/dL (1.6-2.6); PERCENT IRON SATURATION 2.8 % (15.0-55.0); Phosphorus 3.3 mg/dL (2.5-4.9); Protein, Total 6.7 g/dL (6.4-8.2); Sodium Level 128 mmol/L (136-145)
[2023-10-14 07:32] LABS: Toxic Granulation 1+
[2023-10-14] MEDS: Aspirin 81 MG TAB.CHEW PO (07:38)
[2023-10-14 07:51] LABS: Vitamin B12 1223 pg/mL (211-911)
[2023-10-14] MEDS: Pantoprazole Sodium 20 MG Tablet PO (09:06)
[2023-10-14] MEDS: Potassium Chloride Oral Tablet 20 MEQ 60 MEQ PO (09:06)
[2023-10-14] MEDS: amLODIPine 10 MG Tablet PO (09:06)
[2023-10-14] MEDS: guaiFENesin 1,200 MG Tablet 1200 MG PO ×2 (09:06→20:35)
[2023-10-14] MEDS: Magnesium Sulfate 4gm/100mL 4 GM/100 ML IV.SOLN. IV (09:56)
--- NOTE | 2023-10-14 11:21 | CASEMGMT ---
Social Work As per admitting client integration manager, pt does not have LW/POA, declined further information. [employer]
[2023-10-14] MEDS: Azithromycin 500 MG in Dextrose 5%-Water (250mL Bag) 250 ML 250 MG IV (11:22)
--- NOTE | 2023-10-14 11:25 | CASEMGMT ---
AISSATOU HUBER Assessment: Face to Face with pt for initial transition planning/care coordination assessment. RN CECILE introduced self and role at [facility], pt voices understanding and consents to assessment. Pt is A&O x4 and answers all questions appropriately at this time. Care providers, pharmacy, and demographics verified/updated. Strata: 3 Admitting Dx: Pneumonia PCP: [facility] Specialists: Denies Preferred Pharmacy: [facility] Insurance: [employer] Prescription Benefit: yes LNOK: Brother, life partner Living Arrangements: Pt lives with life partner in an apt with 1 step to enter. ADLs: I with ADLs and IADLs. Transportation: Pt drives self and denies concerns with transportation. DME: Wheeled Walker, cane, shower chair. HHC/SNF: Denies Hx of. Pt states no concerns with going home at time of dc. Pt states no further concerns/needs. CM to follow. Advised pt to ask CM if any further question/concerns/needs arise, voices understanding. Pt Goal: Home no needs. Plan: Home, CM to follow plan of care. Rajeev REYEZ CM
--- NOTE | 2023-10-14 14:18 | PN.HOSP_ITS ---
Reason for Visit Reason for Visit: Diagnoses Hypomagnesemia (10/13/23) Hypo-osmolality and hyponatremia (10/13/23) Alcohol abuse, in remission (10/13/23) Pneumonia, unspecified organism (10/13/23) Chronic obstructive pulmonary disease, unspecified (10/13/23) Gastro-esophageal reflux disease without esophagitis (10/13/23) Subjective Subjective Still has productive cough with green sputum but shortness of breath on exertion is improving. In general fatigue still present but also improving Objective Data Objective Data Vital Signs: Vital Signs Temp Pulse Resp BP Pulse Ox O2 Del Method 98.9 F 96 16 140/84 H 99 Room Air 10/14/23 09:00 10/14/23 13:50 10/14/23 13:50 10/14/23 09:00 10/14/23 09:00 10/14/23 10:00 Oxygen Delivery Method Room Air Weight: 70.307 kg Body Mass Index (BMI) 21.6 Intake & Output: Intake and Output for Last 24 Hours 10/12/23 10/13/23 10/14/23 23:59 23:59 23:59 Intake Total 3167.33 / 3167.33 1800 / 1800 Output Total 1300 / 1300 1250 / 1250 Balance 1867.33 / 1867.33 550 / 550 Lab / Micro Data 10/14/23 06:38 10/14/23 06:38 Labs: Laboratory Results - last 24 hr 10/14/23 06:38: WBC 22.7 H, RBC 3.41 L, Hgb 9.4 L, Hct 28.4 L, MCV 83.3, MCH 27.6, MCHC 33.1, RDW Std Deviation 51.2 H, RDW Coeff of Wen 16.8 H, Plt Count 525 H, MPV 8.8, Immature Gran % (Auto) 0.900, Neut % (Auto) 81.5 H, Lymph % (Auto) 8.4 L, [place] % (Auto) 8.8, Eos % (Auto) 0.1, Baso % (Auto) 0.3, Absolute Neuts (auto) 18.5 H, Absolute Lymphs (auto) 1.90, Nucleated RBC % 0, Diff Path Review May foll, Toxic Granulation 1+, Sodium 128 L, Potassium 3.0 L, Chloride 98, Carbon Dioxide 23.0, Anion Gap 7, BUN 3 L, Creatinine 0.48 L, Estim Creat Clear Calc 164.78, Est GFR (MDRD) Af Amer 231, Est GFR (MDRD) Non-Af 191, B UN/Creatinine Ratio 6.3 L, Glucose 142 H, Calcium 8.6, Phosphorus 3.3, Magnesium 1.6, Iron 7 L, TIBC 248 L, Iron Saturation 2.8 L, Ferritin 158, Total Bilirubin 0.30, AST 21, ALT 15 L, Alkaline Phosphatase 143 H, Total Protein 6.7, Albumin 1.6 L, Globulin 5.1 H, Albumin/Globulin Ratio 0.3 L, Vitamin B12 1223 H, Folate 15.40, TSH 0.50 Micro: Microbiology 10/13/23 18:10 Nasal Secretion MRSA (PCR) - Final 10/13/23 16:55 Urine, Clean Catch Legionella Antigen - Final 10/13/23 16:55 Urine, Clean Catch Streptococcus pneumoniae Antigen (M - Final 10/13/23 11:14 Mucosa - Nasopharyngeal Coronavirus COVID-19 PCR - Final 10/13/23 11:14 Mucosa - Nasopharyngeal Respiratory Panel (PCR) - Final 10/13/23 08:01 Sputum, Expectorated/Coughed Gram Stain - Final Physical Exam Narrative General: Alert, oriented HEENT: Atraumatic, normocephalic Eyes: Anicteric, normal conjunctiva, extraocular movements grossly intact Neck: Supple Respiratory: Still diminished on the left side, respiratory effort is beginning to improve Cardiovascular: Tachycardic and regular rhythm GI: Soft, nontender, nondistended Extremities: No edema Musculoskeletal: Moving all extremities Neuro: No overt focal neurological deficits Skin: No rashes appreciated Psych: Cooperative Assessment & Plan Assessment/Plan (1) Community acquired pneumonia: (2) Hypomagnesemia: (3) GERD (gastroesophageal reflux disease): QUALIFIERS: Esophagitis presence: esophagitis presence not specified Qualified Code(s): K21.9 - Gastro-esophageal reflux disease without esophagitis (4) COPD (chronic obstructive pulmonary disease): QUALIFIERS: COPD type: unspecified COPD Qualified Code(s): J44.9 - Chronic obstructive pulmonary disease, unspecified (5) Chronic hyponatremia: (6) History of alcohol abuse: PLAN: Plan #Community-acquired pneumonia -Imaging: Left lower lobe pneumonia -Patient tachycardic, productive foul-smelling sputum, significantly elevated white blood cell count, short of breath and generally feels unwell -DuoNebs and as needed albuterol -Sputum culture, COVID and flu, respiratory panel -Urine antigens -Mucinex, I/S -Rocephin and azithromycin -Patient does have COPD with increased productive sputum and shortness of breath but no wheezes and this seems related to pneumonia, will start with antibiotics and hold off on steroids but can consider if patient develops wheezes or is not improving as expected -10/13: Awaiting sputum culture, doing much better on Zosyn and azithromycin, MRSA swab negative so vancomycin discontinued. If patient continues to improve likely DC in 1 to 2 days, awaiting final cultures # Chronic COPD -Nebs as above -Does not necessarily seem to be in exacerbation but low threshold to add steroids -10/13: Not wheezing and is improving and not hypoxic so will not add steroids, presently 95% on room air # Leukocytosis -Significantly elevated, begin antibiotics, sputum culture, recheck in a.m. -If not significantly improving may need CT of the chest or further infectious workup -10/13: Is improving though still significantly elevated 22.7, awaiting cultures, continue Zosyn and azithromycin # History of alcohol abuse -Now drinks 1-2 beers every 2 days -Does not appear to be actively withdrawing -10/13: No signs or symptoms of withdrawal, no acute management necessary # Hypomagnesemia/hypokalemia -Replace -Recheck in a.m. -10/13: Still suboptimal, replaced #Anemia -Appears to have chronic anemia but is 9.6 and baseline seems closer to 11 -Given elevated plt will check iron panel -Will also check b12 and folate -10/13: Will start oral iron supplementation Chronic medical problems: #GERD -Continue PPI # Chronic hyponatremia -Appears to be at baseline # History of right thalamic stroke -Continue home meds, supportive care #Tobacco use -Advise cessation -Nicotine replacement available if desired #HTN -Continue amlodipine #DVT ppx: SCDs Alexa Freedman MD Time spent in the patient's overall evaluation,decision-making process, review of diagnostic data, adjustment of management, discussion with other providers, nursing nursing and ancillary staff involved in patient's care documentation, 39 Minutes Charges/Coding Visit Charges Inpatient E&M: 51545 Subs Hosp L2
[2023-10-14 15:28] LABS: Pathologist Review Reviewed
[2023-10-14] MEDS: traZODone 50 MG Tablet PO (20:35)
[2023-10-14] MEDS: Benzonatate 100 MG Capsule 200 MG PO (20:35)
[2023-10-14] MEDS: Atorvastatin Calcium 40 MG Tablet PO (20:35)
[2023-10-15] VITALS (9 sets, daily range): BP systolic 127–147; BP diastolic 84–94; PULSE 92–116; RESP 18–20; TEMP 36.6–37.2; O2SAT 94–100
[2023-10-15] MEDS: Acetaminophen 325 MG Tablet 650 MG PO ×3 (05:25→22:49)
[2023-10-15] MEDS: Piperacil/Tazobactam 3.375 GM in 0.9% Normal Saline (50mL MB+) 50 ML IV ×3 (05:30→21:35)
[2023-10-15 06:07] LABS: Absolute Lymphocyte Count 1.57 X10^3/uL (0.83-4.51); Absolute Neutrophil Count 13.3 X10^3/uL (2.0-7.7); Basophil# 0.06 X10^3/uL; Basophil% 0.4 % (0-1); Eosinophil# 0.07 X10^3/uL; Eosinophils% 0.4 % (0-5); Hematocrit 27.1 % (40-54); Lymphocyte # 1.57 X10^3/ul (0.83-4.51); Lymphocyte % 9.3 % (19-41); Mean Corp Hgb Conc 33.2 g/dL (32-36); Mean Corpuscular Hgb 27.7 pg (27.0-32.0); Mean Corpuscular Volume 83.4 fL (80-94); Mean Platelet Vol. 8.8 fl (6.2-12.0); Monocyte# 1.65 X10^3/uL; Monocyte% 9.8 % (0-10); NRBC Flagged by Analyzer 0 % (0-5); Neutrophil # 13.33 X10^3/uL (2.7-7.7); Neutrophil % 79.2 % (47-70); POSITIVE DIFFERENTIAL YES; Platelet Count 507 K/mm3 (150-450); RBC Distribution Width CV 16.7 % (11.6-14.6); RBC Distribution Width SD 51.6 fl (35.1-43.9); Red Blood Count 3.25 M/mm3 (4.6-6.2); White Blood Count 16.8 K/mm3 (4.4-11.0)
[2023-10-15 06:11] LABS: Differential Indicated SCAN CRITERIA MET
[2023-10-15 06:50] LABS: ALB/GLOB Ratio 0.3 RATIO (0.9-2.4); AST(SGOT) 21 U/L (15-37); Alanine Aminotransfer ALT/SGPT 15 U/L (16-61); Albumin, Serum 1.6 g/dL (3.2-5.0); Alkaline Phosphatase 136 U/L (45-117); Anion Gap 9 (5-15); BUN 3 mg/dL (7-18); BUN/Creat Ratio 8.6 RATIO (10-20); Calcium,Total 8.6 mg/dL (8.5-10.1); Chloride 95 mmol/L (98-107); Creatinine, Serum 0.35 mg/dL (0.70-1.30); EST Glomerular Filtration Rate 274 mL/min (>60); Est Glom Filt Rate - Afr Amer 331 mL/min (>60); Estimated Creatinine Clearance 225.99 ml/min; Glucose 101 mg/dL (74-106); Potassium 3.6 mmol/L (3.5-5.1); Protein, Total 6.6 g/dL (6.4-8.2); Sodium Level 127 mmol/L (136-145)
[2023-10-15 07:13] LABS: Differential Comment SCANNED
[2023-10-15] MEDS: Ipratropium/Albuterol Sulfate 3 ML AMPUL.NEB INHALATION ×3 (07:43→21:11)
[2023-10-15] MEDS: Aspirin 81 MG TAB.CHEW PO (08:11)
[2023-10-15] MEDS: Pantoprazole Sodium 20 MG Tablet PO (10:07)
[2023-10-15] MEDS: amLODIPine 10 MG Tablet PO (10:07)
[2023-10-15] MEDS: Iron Polysaccharide Complex 150 MG CAPSULE PO (10:07)
[2023-10-15] MEDS: guaiFENesin 1,200 MG Tablet 1200 MG PO ×2 (10:07→21:38)
[2023-10-15] MEDS: Azithromycin 500 MG in Dextrose 5%-Water (250mL Bag) 250 ML 250 MG IV (10:08)
[2023-10-15 13:13] LABS: Magnesium 1.8 mg/dL (1.6-2.6)
[2023-10-15] MEDS: SimETHICONE 80 MG Chewable Tablet PO (13:52)
[2023-10-15] MEDS: 0.9% Normal Saline (1000mL) 1,000 ML 75 ML IV (13:52)
--- NOTE | 2023-10-15 15:03 | PN.HOSP_ITS ---
Reason for Visit Reason for Visit: Diagnoses Hypomagnesemia (10/13/23) Hypo-osmolality and hyponatremia (10/13/23) Alcohol abuse, in remission (10/13/23) Pneumonia, unspecified organism (10/13/23) Chronic obstructive pulmonary disease, unspecified (10/13/23) Gastro-esophageal reflux disease without esophagitis (10/13/23) Subjective Subjective Patient feeling worse today, still is productive cough however has been having significant amount of diarrhea since he woke up this morning with some abdominal cramping and he felt nauseous, feels generally weak Objective Data Objective Data Vital Signs: Vital Signs Temp Pulse Resp BP Pulse Ox O2 Del Method 97.9 F 102 H 18 132/84 H 100 Room Air 10/15/23 14:30 10/15/23 14:30 10/15/23 14:30 10/15/23 14:30 10/15/23 14:30 10/15/23 14:30 Oxygen Delivery Method Room Air Weight: 70.307 kg Body Mass Index (BMI) 21.6 Intake & Output: Intake and Output for Last 24 Hours 10/13/23 10/14/23 10/15/23 23:59 23:59 23:59 Intake Total 3167.33 / 3167.33 2505 / 2505 655 / 655 Output Total 1300 / 1300 2100 / 2100 900 / 900 Balance 1867.33 / 1867.33 405 / 405 -245 / -245 Lab / Micro Data 10/15/23 05:52 10/15/23 05:52 Labs: Laboratory Results - last 24 hr 10/13/23 07:17: Diff Path Review Reviewed 10/15/23 05:52: WBC 16.8 H, RBC 3.25 L, Hgb 9.0 L, Hct 27.1 L, MCV 83.4, MCH 27.7, MCHC 33.2, RDW Std Deviation 51.6 H, RDW Coeff of Wen 16.7 H, Plt Count 507 H, MPV 8.8, Immature Gran % (Auto) 0.900, Neut % (Auto) 79.2 H, Lymph % (Auto) 9.3 L, Starr % (Auto) 9.8, Eos % (Auto) 0.4, Baso % (Auto) 0.4, Absolute Neuts (auto) 13.3 H, Absolute Lymphs (auto) 1.57, Nucleated RBC % 0, Differential Comment SCANNED, Diff Path Review July, Sodium 127 L, Potassium 3.6, Chloride 95 L, Carbon Dioxide 23.0, Anion Gap 9, BUN 3 L, Creatinine 0.35 L , Estim Creat Clear Calc 225.99, Est GFR (MDRD) Af Amer 331, Est GFR (MDRD) Non- Af 274, BUN/Creatinine Ratio 8.6 L, Glucose 101, Calcium 8.6, Magnesium 1.8, Total Bilirubin 0.30, AST 21, ALT 15 L, Alkaline Phosphatase 136 H, Total Protein 6.6, Albumin 1.6 L, Globulin 5.0 H, Albumin/Globulin Ratio 0.3 L Micro: Microbiology 10/13/23 08:01 Sputum, Expectorated/Coughed Gram Stain - Final 10/13/23 08:01 Sputum, Expectorated/Coughed Respiratory Culture - Final 10/13/23 18:10 Nasal Secretion MRSA (PCR) - Final 10/13/23 16:55 Urine, Clean Catch Legionella Antigen - Final 10/13/23 16:55 Urine, Clean Catch Streptococcus pneumoniae Antigen (M - Final 10/13/23 11:14 Mucosa - Nasopharyngeal Coronavirus COVID-19 PCR - Final 10/13/23 11:14 Mucosa - Nasopharyngeal Respiratory Panel (PCR) - Final Physical Exam Narrative General: Alert, oriented, appears to not feel well at this time HEENT: Atraumatic, normocephalic Eyes: Anicteric, normal conjunctiva, extraocular movements grossly intact Neck: Supple Respiratory: Still diminished on the left side, respiratory effort is beginning to improve Cardiovascular: Regular rate and rhythm GI: Soft, little bit tender in bilateral lower quadrants without rebound, guarding, rigidity Extremities: No edema Musculoskeletal: Moving all extremities Neuro: No overt focal neurological deficits Skin: No rashes appreciated Psych: Cooperative Assessment & Plan Assessment/Plan (1) Community acquired pneumonia: (2) Hypomagnesemia: (3) GERD (gastroesophageal reflux disease): QUALIFIERS: Esophagitis presence: esophagitis presence not specified Qualified Code(s): K21.9 - Gastro-esophageal reflux disease without esophagitis (4) COPD (chronic obstructive pulmonary disease): QUALIFIERS: COPD type: unspecified COPD Qualified Code(s): J44.9 - Chronic obstructive pulmonary disease, unspecified (5) Chronic hyponatremia: (6) History of alcohol abuse: PLAN: Plan # Diarrhea -Patient endorsed having a significant amount of diarrhea since he woke up this morning with some lower abdominal pain and some nausea and generally feeling weak and worse than yesterday -May be due to antibiotics however cannot say definitively especially given significance of symptoms -Stool studies ordered -IV fluids -Further dispo and treatment pending stool results #Community-acquired pneumonia -Imaging: Left lower lobe pneumonia -Patient tachycardic, productive foul-smelling sputum, significantly elevated white blood cell count, short of breath and generally feels unwell -DuoNebs and as needed albuterol -Sputum culture, COVID and flu, respiratory panel -Urine antigens -Mucinex, I/S -Rocephin and azithromycin -Patient does have COPD with increased productive sputum and shortness of breath but no wheezes and this seems related to pneumonia, will start with antibiotics and hold off on steroids but can consider if patient develops wheezes or is not improving as expected -10/13: Awaiting sputum culture, doing much better on Zosyn and azithromycin, MRSA swab negative so vancomycin discontinued. If patient continues to improve likely DC in 1 to 2 days, awaiting final cultures -10/14: Still short of breath but continues to improve from this aspect, sputum culture with normal ember, no specific pathogen isolated but improving with current treatments will continue # Chronic COPD -Nebs as above -Does not necessarily seem to be in exacerbation but low threshold to add steroids -10/13: Not wheezing and is improving and not hypoxic so will not add steroids, presently 95% on room air -10/14: Continuing nebs and treatment as above, does not seem to be in acute exacerbation # Leukocytosis -Significantly elevated, begin antibiotics, sputum culture, recheck in a.m. -If not significantly improving may need CT of the chest or further infectious workup -10/13: Is improving though still significantly elevated 22.7, awaiting cultures, continue Zosyn and azithromycin -10/14: Still improving on current antibiotics, no specific pathogen isolated still continue this course at this time, suspect patient will need 7 days of antibiotics total but will continue to evaluate, has not been febrile today # History of alcohol abuse -Now drinks 1-2 beers every 2 days -Does not appear to be actively withdrawing -10/13: No signs or symptoms of withdrawal, no acute management necessary -10/14: No signs or symptoms of alcohol withdrawal, continue to advise cessation on outpatient basis # Hypomagnesemia/hypokalemia -Replace -Recheck in a.m. -10/13: Still suboptimal, replaced -10/14: Replace magnesium with a goal of 2, potassium within normal limits today though may be low again tomorrow after diarrhea, will recheck in a.m. #Anemia -Appears to have chronic anemia but is 9.6 and baseline seems closer to 11 -Given elevated plt will check iron panel -Will also check b12 and folate -10/13: Will start oral iron supplementation -10/14: Hemoglobin 9 today, no obvious ongoing blood loss, hemoglobin overall stable Chronic medical problems: #GERD -Continue PPI # Chronic hyponatremia -Appears to be at baseline # History of right thalamic stroke -Continue home meds, supportive care #Tobacco use -Advise cessation -Nicotine replacement available if desired #HTN -Continue amlodipine #DVT ppx: SCDs Alexa Freedman MD Time spent in the patient's overall evaluation,decision-making process, review of diagnostic data, adjustment of management, discussion with other providers, nursing nursing and ancillary staff involved in patient's care documentation, 35 minutes Charges/Coding Visit Charges Inpatient E&M: 37782 Subs Hosp L2
[2023-10-15] MEDS: Magnesium Sulfate 4gm/100mL 4 GM/100 ML IV.SOLN. IV (16:01)
[2023-10-15] MEDS: Atorvastatin Calcium 40 MG Tablet PO (21:38)
[2023-10-15] MEDS: hydrOXYzine 10 MG Tablet PO (21:52)
[2023-10-15] MEDS: traZODone 50 MG Tablet PO (22:49)
[2023-10-15] MEDS: Benzonatate 100 MG Capsule 200 MG PO (22:49)
[2023-10-16 03:55] VITALS: BP 133/81; PULSE 89; RESP 15; TEMP 36.9; O2SAT 93
[2023-10-16 03:57] VITALS: BP 133/81; PULSE 89; RESP 15; TEMP 36.9; O2SAT 93
[2023-10-16] MEDS: 0.9% Normal Saline (1000mL) 1,000 ML 75 ML IV (03:57)
[2023-10-16] MEDS: Piperacil/Tazobactam 3.375 GM in 0.9% Normal Saline (50mL MB+) 50 ML IV (05:32)
[2023-10-16] MEDS: Acetaminophen 325 MG Tablet 650 MG PO (05:36)
[2023-10-16 06:10] LABS: Absolute Lymphocyte Count 1.67 X10^3/uL (0.83-4.51); Absolute Neutrophil Count 10.3 X10^3/uL (2.0-7.7); Basophil# 0.06 X10^3/uL; Basophil% 0.4 % (0-1); Eosinophil# 0.09 X10^3/uL; Eosinophils% 0.7 % (0-5); Hemoglobin 8.8 g/dL (13.0-16.5); Lymphocyte # 1.67 X10^3/ul (0.83-4.51); Lymphocyte % 12.1 % (19-41); Mean Corp Hgb Conc 32.6 g/dL (32-36); Mean Corpuscular Hgb 27.4 pg (27.0-32.0); Mean Corpuscular Volume 84.1 fL (80-94); Mean Platelet Vol. 8.6 fl (6.2-12.0); Monocyte# 1.47 X10^3/uL; Monocyte% 10.7 % (0-10); NRBC Flagged by Analyzer 0 % (0-5); Neutrophil # 10.33 X10^3/uL (2.7-7.7); Platelet Count 574 K/mm3 (150-450); RBC Distribution Width CV 16.8 % (11.6-14.6); Red Blood Count 3.21 M/mm3 (4.6-6.2); White Blood Count 13.8 K/mm3 (4.4-11.0)
[2023-10-16 07:31] LABS: ALB/GLOB Ratio 0.3 RATIO (0.9-2.4); AST(SGOT) 28 U/L (15-37); Alanine Aminotransfer ALT/SGPT 22 U/L (16-61); Albumin, Serum 1.6 g/dL (3.2-5.0); Alkaline Phosphatase 129 U/L (45-117); Anion Gap 8 (5-15); BUN 3 mg/dL (7-18); BUN/Creat Ratio 7.5 RATIO (10-20); Calcium,Total 8.3 mg/dL (8.5-10.1); Chloride 98 mmol/L (98-107); EST Glomerular Filtration Rate 233 mL/min (>60); Est Glom Filt Rate - Afr Amer 282 mL/min (>60); Estimated Creatinine Clearance 197.74 ml/min; Globulin 4.7 g/dL (2.2-4.2); Glucose 102 mg/dL (74-106); Magnesium 1.9 mg/dL (1.6-2.6); Potassium 3.7 mmol/L (3.5-5.1); Protein, Total 6.3 g/dL (6.4-8.2); Sodium Level 130 mmol/L (136-145)
[2023-10-16 07:40] VITALS: PULSE 92; RESP 16
[2023-10-16] MEDS: Ipratropium/Albuterol Sulfate 3 ML AMPUL.NEB INHALATION (07:40)
[2023-10-16 08:48] LABS: Pathologist Review Reviewed
[2023-10-16 08:50] LABS: Pathologist Review Reviewed
[2023-10-16 09:00] VITALS: BP 145/87; PULSE 112; RESP 16; TEMP 36.9; O2SAT 99
[2023-10-16] MEDS: Pantoprazole Sodium 20 MG Tablet PO (09:23)
[2023-10-16] MEDS: guaiFENesin 1,200 MG Tablet 1200 MG PO (09:23)
[2023-10-16] MEDS: Aspirin 81 MG TAB.CHEW PO (09:23)
[2023-10-16] MEDS: amLODIPine 10 MG Tablet PO (09:23)
[2023-10-16] MEDS: Iron Polysaccharide Complex 150 MG CAPSULE PO (09:23)
[2023-10-16] MEDS: Losartan Potassium 50 MG Tablet PO (10:45)
--- NOTE | 2023-10-16 11:24 | DCINST_ITS ---
Discharge Instructions Diet Discharge Diet: Light diet - advance as tolerated Activity Discharge Activity: Return to Normal Activity Follow Up Care Test Results: Test results from this visit will be discussed in further detail at your follow- up appointment, if applicable. Discharge Plan Admission Admit Date/Time: 10/13/23 09:22 Primary Reason for Your Visit: Shortness of breath and cough Attending Provider: Alexa Freedman Primary Care Provider: Nichole Grove Instructions Patient Instructions: Pneumonia Community Acquired, ED Pneumonia (Adult), Pneumonia Discharge Orders/Prescriptions Prescriptions: New polysaccharide iron complex [Ferrex 150] 150 mg iron Capsule 150 mg PO DAILY 30 Days Qty: 30 0RF amoxicillin-pot clavulanate 875-125 mg tablet 1 tab PO BID 4 Days Qty: 9 0RF Rx Instructions: First dose night of 10/15 Continued multivitamin [Daily Multi-Vitamin] Tablet 1 tab PO DAILY Qty: 30 0RF omeprazole 20 mg capsule,delayed release(DR/EC) 20 mg PO DAILY atorvastatin 40 mg tablet 40 mg PO DAILY losartan 50 mg tablet 50 mg PO DAILY Qty: 30 1RF aspirin 81 mg tablet,chewable 81 mg PO BREAKFAST Qty: 90 3RF trazodone 50 mg tablet 50 mg PO QHS PRN (Reason: sleep) Qty: 30 2RF amlodipine 10 mg tablet 10 mg PO DAILY Qty: 90 1RF Referrals / Follow Up: Nichole Grove MD [Primary Care Provider] - Within 1 Week Disposition Disposition (needs filled in before D/C Order can be placed): Home, Self Care
--- NOTE | 2023-10-16 11:27 | DS.PCM_ITS ---
Providers Date of Admission: 10/13/23 Date of Discharge: 10/16/23 Primary Care Physician: Dr. Nichole Grove MD Reason For Visit: PNEUMONIA Diagnosis Discharge Diagnosis (1) Community acquired pneumonia: Status: Acute Code(s): J18.9 - Pneumonia, unspecified organism (2) Hypomagnesemia: Status: Acute Code(s): E83.42 - Hypomagnesemia (3) GERD (gastroesophageal reflux disease): Status: Chronic Code(s): K21.9 - Gastro-esophageal reflux disease without esophagitis Qualifiers: Esophagitis presence: esophagitis presence not specified Qualified Code(s): K21.9 - Gastro-esophageal reflux disease without esophagitis (4) COPD (chronic obstructive pulmonary disease): Status: Suspected Code(s): J44.9 - Chronic obstructive pulmonary disease, unspecified Qualifiers: COPD type: unspecified COPD Qualified Code(s): J44.9 - Chronic obstructive pulmonary disease, unspecified (5) Chronic hyponatremia: Status: Chronic Code(s): E87.1 - Hypo-osmolality and hyponatremia (6) History of alcohol abuse: Status: Acute Code(s): F10.11 - Alcohol abuse, in remission Plan #Community-acquired pneumonia # Chronic COPD # Leukocytosis- improving # History of alcohol abuse # Hypomagnesemia/hypokalemia- resolved #Anemia chronic #GERD # Chronic hyponatremia # History of right thalamic stroke #Tobacco use #HTN Medications at Discharge Home Medications aspirin 81 mg chewable tablet 81 mg PO BREAKFAST [facility] #90 tabs 05/29/23 trazodone 50 mg tablet 50 mg PO QHS PRN sleep #30 tabs 05/29/23 multivitamin (Daily Multi-Vitamin tablet) 1 tab PO DAILY #30 tabs 06/28/23 atorvastatin 40 mg tablet 40 mg PO DAILY CHOLESTEROL 09/04/23 omeprazole 20 mg capsule,delayed release 20 mg PO DAILY ACID REFLUX 09/04/23 losartan 50 mg tablet 50 mg PO DAILY #30 tabs 09/07/23 amlodipine 10 mg tablet 10 mg PO DAILY BLOOD PRESSURE #90 tabs 09/24/23 amoxicillin 875 mg-potassium clavulanate 125 mg tablet 1 tab PO BID 4 days #9 tabs 10/16/23 polysaccharide iron complex 150 mg iron capsule (Ferrex) 150 mg PO DAILY 30 days #30 caps 10/16/23 Hospital Course Summary of Care Provided Minutes Spent on Discharge: 25 Hospital Course: NICOLE KEITH, is a 58-year-old male history of Hypertension, CVA, alcoholism, COPD, GERD presented to [facility] ED 10/13/2023 with productive cough and nasal drainage and shortness of breath. He was found to have left lower lobe consolidation on chest x-ray with a respiratory rate of 24 and was tachycardic and white blood cell count of 30 and was admitted for IV antibiotics and given significance of symptoms with tachypnea and tachycardia and white blood cell count of 30 and foul-smelling sputum he was started on broader spectrum antibiotics. Improved slowly with Zosyn. Day before discharge had diarrhea but this improved the following day with no intervention while stool studies were pending. On day of discharge patient feeling much better, patient would like to be discharged and agreeable to taking Augmentin. Discharged home in stable condition Physical Exam Narrative General: Alert, oriented, appears to feel much better HEENT: Atraumatic, normocephalic Eyes: Anicteric, normal conjunctiva, extraocular movements grossly intact Neck: Supple Respiratory: Improved respiratory effort, still somewhat diminished on left side but improvement in airflow Cardiovascular: Regular rate and regular rhythm GI: Soft, nontender, nondistended Extremities: No edema Musculoskeletal: Moving all extremities Neuro: No overt focal neurological deficits Skin: No rashes appreciated Psych: Cooperative Weight / BMI Weight Weight: 70.307 kg Body Mass Index (BMI) 21.6 ABG / Lab / Microbiology Data 10/16/23 06:01 10/16/23 06:01 Laboratory: Laboratory Results - last 24 hr 10/14/23 06:38: Diff Path Review Reviewed 10/15/23 05:52: Diff Path Review Reviewed, Magnesium 1.8 10/16/23 06:01: WBC 13.8 H, RBC 3.21 L, Hgb 8.8 L, Hct 27.0 L, MCV 84.1, MCH 27.4, MCHC 32.6, RDW Std Deviation 52.0 H, RDW Coeff of Wen 16.8 H, Plt Count 574 H, MPV 8.6, Immature Gran % (Auto) 1.100 H, Neut % (Auto) 75.0 H, Lymph % (Auto) 12.1 L, Kimble % (Auto) 10.7 H, Eos % (Auto) 0.7, Baso % (Auto) 0.4, A bsolute Neuts (auto) 10.3 H, Absolute Lymphs (auto) 1.67, Nucleated RBC % 0, S odium 130 L, Potassium 3.7, Chloride 98, Carbon Dioxide 24.0, Anion Gap 8, BUN 3 L, Creatinine 0.40 L, Estim Creat Clear Calc 197.74, Est GFR (MDRD) Af Amer 282, Est GFR (MDRD) Non-Af 233, BUN/Creatinine Ratio 7.5 L, Glucose 102, Calcium 8.3 L, Magnesium 1.9, Total Bilirubin 0.20, AST 28, ALT 22, Alkaline Phosphatase 129 H, Total Protein 6.3 L, Albumin 1.6 L, Globulin 4.7 H, Albumin/Globulin Ratio 0.3 L Microbiology: Microbiology 10/16/23 07:05 Stool Clostridioides difficile (PCR) - Final 10/13/23 07:51 Blood Culture (Wb) - Anticubital Right Blood Culture - Preliminary No growth in 48 hours. 10/13/23 08:01 Sputum, Expectorated/Coughed Gram Stain - Final 10/13/23 08:01 Sputum, Expectorated/Coughed Respiratory Culture - Final 10/13/23 18:10 Nasal Secretion MRSA (PCR) - Final 10/13/23 16:55 Urine, Clean Catch Legionella Antigen - Final 10/13/23 16:55 Urine, Clean Catch Streptococcus pneumoniae Antigen (M - Final 10/13/23 11:14 Mucosa - Nasopharyngeal Coronavirus COVID-19 PCR - Final 10/13/23 11:14 Mucosa - Nasopharyngeal Respiratory Panel (PCR) - Final D/C Instructions Discharge Diet: Light diet - advance as tolerated Meaningful Use Info Meaningful Use Meaningful Use Diagnoses (Choose all that apply): None applicable Ischemic Stroke Statin Dosing Therapy Reference: STATIN DOSE THERAPY REFERENCE: * Patients > 75 years receive moderate or high dose statin therapy. * Patients 75 years or YOUNGER should receive HIGH intensity statin dose unless contraindicated. You will be required to document reason for non-treatment if statin daily dose does not meet guidelines. HIGH DOSE STATIN THERAPY DAILY Atorvastatin > than or = to 40 mg Rosuvastatin > than or = to 20 mg Amlodipine + Atorvastatin > than or = to 2.5/40 mg Ezetimibe + Simvastatin 10/80 mg Simvastatin 80mg Discharge Plan Admission Admit Date/Time: 10/13/23 09:22 Primary Reason for Your Visit: Shortness of breath and cough Attending Provider: Alexa Freedman Primary Care Provider: Nichole Grove Instructions Patient Instructions: Pneumonia Community Acquired, ED Pneumonia (Adult), Pneumonia Discharge Orders/Prescriptions Prescriptions: New polysaccharide iron complex [Ferrex 150] 150 mg iron Capsule 150 mg PO DAILY 30 Days Qty: 30 0RF amoxicillin-pot clavulanate 875-125 mg tablet 1 tab PO BID 4 Days Qty: 9 0RF Rx Instructions: First dose night of 10/15 Continued multivitamin [Daily Multi-Vitamin] Tablet 1 tab PO DAILY Qty: 30 0RF omeprazole 20 mg capsule,delayed release(DR/EC) 20 mg PO DAILY atorvastatin 40 mg tablet 40 mg PO DAILY losartan 50 mg tablet 50 mg PO DAILY Qty: 30 1RF aspirin 81 mg tablet,chewable 81 mg PO BREAKFAST Qty: 90 3RF trazodone 50 mg tablet 50 mg PO QHS PRN (Reason: sleep) Qty: 30 2RF amlodipine 10 mg tablet 10 mg PO DAILY Qty: 90 1RF Referrals / Follow Up: Nichole Grove MD [Primary Care Provider] - Within 1 Week Disposition Disposition (needs filled in before D/C Order can be placed): Home, Self Care Charges/Coding Visit Charges Inpatient E&M: 89269 Disch Hosp
--- NOTE | 2023-10-16 12:08 | CASEMGMT ---
Patient has order for discharge. RN CM into discuss needs at discharge. Patient denies needs or help at discharge. Patient had no further questions or concerns.
== END 2023-10-16 12:51 | disposition home or self-care (01) | DRG 139 ==
LOC: ED 08:12 → PCU 09:43
PROVIDERS: Admitting Provider Internal Medicine; Emergency Provider Emergency Medicine; PCP Internal Medicine; Visit Provider Internal Medicine
DX: J18.9 Pneumonia, unspecified organism (principal); E87.1 Hypo-osmolality and hyponatremia; J44.0 Chronic obstructive pulmonary disease with (acute) lower respiratory infection; D64.9 Anemia, unspecified; I10 Essential (primary) hypertension; E87.6 Hypokalemia; F17.210 Nicotine dependence, cigarettes, uncomplicated; K21.9 Gastro-esophageal reflux disease without esophagitis; E83.42 Hypomagnesemia; I25.2 Old myocardial infarction; R19.7 Diarrhea, unspecified; Z79.82 Long term (current) use of aspirin; Z79.899 Other long term (current) drug therapy; Z86.73 Personal history of transient ischemic attack (TIA), and cerebral infarction without residual deficits
CPT/HCPCS: 36415; 71045; 80048; 80053; 80076; 82607; 82728; 82746; 83540; 83550; 83605; 83735; 84100; 84443; 85025; 85610; 85730; 86703; 87040; 87070; 87205; 87449; 87493; 87506; 87633; 87635; 87641; 93005; 94640; 94668; 97116; 97162; 97166; 97535; 99285; J7030; J7040; J7050; A4216

== ENCOUNTER → 2023-10-30 | Outpatient (CLI) | payer MEDICAID, SELFPAY ==
--- NOTE | 2023-10-30 06:33 | RAD_ITS ---
STUDY: X-RAY CHEST REASON FOR EXAM: Male, 58 years old. Left pneumonia, cough TECHNIQUE: Frontal and lateral views of the chest. COMPARISON: 10/13/2023. FINDINGS: Improving airspace consolidation in the posterior left lower lobe consistent with improving pneumonia. Continued follow-up to complete resolution recommended. Right lung clear. Stable bilateral small calcified granulomas. No effusions. Normal size heart. Normal mediastinum and june. Normal visualized pulmonary arteries. Normal visualized aortic arch and descending thoracic aorta. Normal visualized thoracic spine. Stable old right rib fractures. There is no demonstrated abnormality of the visualized soft tissue structures of the upper abdomen. RAD/Chest PA and Lateral IMPRESSION: Improving left lower lobe pneumonia. Electronically Signed: Arsalan Nava MD at 16:53 EDT ,
== END | disposition home or self-care (01) ==
LOC: RAD 06:30
PROVIDERS: PCP Internal Medicine; Referring Provider Internal Medicine; Visit Provider Internal Medicine
DX: J18.9 Pneumonia, unspecified organism (principal)
CPT/HCPCS: 71046

== ENCOUNTER → 2023-12-05 | Outpatient (CLI) | payer MEDICAID, SELFPAY ==
--- NOTE | 2023-12-05 07:17 | CT_ITS ---
HISTORY: PNEUMONIA. TECHNIQUE: Helically acquired images were obtained of the chest without contrast. A radiation dose optimization technique was used for this scan. 914 images. COMPARISON: XR 10/30/2023, 10/13/2023. FINDINGS: LARGE AIRWAYS: Patent. LUNGS: Focal 3 x 5.3 x 7 cm left lower lobe opacity with air bronchograms contacting the hilum and pleural surface Mild emphysema. Calcified granulomas in the right upper, right middle, and left upper lobes. PLEURA: No pneumothorax or significant pleural effusion. HEART/PERICARDIUM: Heart within normal limits in size. No significant coronary artery calcification. No pericardial effusion. VESSELS: Thoracic aorta nondilated. MEDIASTINUM/SAM: No pathologically enlarged adenopathy. Calcified hilar and mediastinal lymph nodes. UPPER ABDOMEN: Unremarkable. BONES: Degenerative change. Old right rib fractures. CT/Chest without Contrast IMPRESSION: Persistent 5.3 cm left lower lobe opacity, not significantly decreased in size from prior. Recommend correlation with PET/CT and/or tissue diagnosis to assess for neoplasm versus infection. Mild emphysema. Presence of pulmonary emphysema on CT is an independent risk factor for lung cancer. Consider LDCT lung cancer screening in the future. Electronically Signed: Allison Baeza MD at 12:18 EDT ,
== END | disposition home or self-care (01) ==
LOC: CT 07:17
PROVIDERS: PCP Internal Medicine; Referring Provider Internal Medicine; Visit Provider Internal Medicine
DX: J18.9 Pneumonia, unspecified organism (principal); Z87.891 Personal history of nicotine dependence
CPT/HCPCS: 71250

== ENCOUNTER 2023-12-28 09:49 | Inpatient (IN) | payer MEDICAID, SELFPAY ==
[2023-12-28] VITALS (13 sets, daily range): BP systolic 79–145; BP diastolic 53–109; PULSE 81–99; RESP 18–22; TEMP 36.6–36.9; O2SAT 93–100; BMI 23.6
--- NOTE | 2023-12-28 10:40 | EDS_ITS ---
HPI History of Present Illness Chief Complaint: Shortness of Breath Informant: patient Onset/Context/Timing Onset: Days Context: gradual Timing: Continuous Quality: Positive for Dyspnea on exertion Worsened by: Exertion Relieved by: Nothing Associated Symptoms cough, rhinorrhea, fever, subjective, chills, yellow sputum and green sputum; Negative for post nasal drip, ear pain, sore throat, sweats, clear sputum or white sputum Chest Pain: Positive for Pressure (Left chest and left back) Narrative Narrative: Patient presents with shortness of breath and cough that has been getting worse over the past few days. Patient states he was recently treated for pneumonia. Patient states he was hospitalized for that. Patient states that his primary care physician today follow-up chest x-ray which showed that it had cleared up. Patient states that over the past few days he started having some more shortness of breath. Patient states he is coughing up some yellow and green sputum. Patient admits to some subjective fevers and chills. Patient also admits to some rhinorrhea. Patient admits to some pain over the left side of his chest and left back. Patient also states that he would like detox from alcohol. Patient states that he went through detox here in October. Patient states he drinks 12-15 beers per day. Patient states his last drink was yesterday afternoon. Patient denies any suicidal homicidal ideations. [facility] Medical History Left lower lobe pulmonary nodule History of smoking Hypomagnesemia Alcoholism Left lower lobe pneumonia Hyperbilirubinemia Depression Smoker COPD (chronic obstructive pulmonary disease) History of CVA (cerebrovascular accident) Tobacco use Desire for detoxification Old myocardial infarction Hyperlipidemia Hyperglycemia Ischemic stroke History of recent stroke Alcohol abuse Right thalamic stroke Wears glasses Anxiety Marijuana use Alcohol use Arthritis Back pain Smoker History of pain when walking Hx of fracture of leg GERD (gastroesophageal reflux disease) Chronic hyponatremia Alcohol abuse Tobacco use Hypertension Home Medications ?Medication ?Instructions ?Recorded ?Last Taken ?Type aspirin 81 mg chewable tablet 81 mg PO [facility] 05/29/23 09/04/23 Rx #90 tabs multivitamin (Daily Multi-Vitamin 1 tab PO DAILY supplement #30 tabs 06/28/23 09/04/23 Rx tablet) omeprazole 20 mg capsule,delayed 20 mg PO DAILY ACID REFLUX 09/04/23 09/04/23 History release amlodipine 10 mg tablet 10 mg PO DAILY BLOOD PRESSURE #90 09/24/23 Unknown Rx tabs trazodone 50 mg tablet 50 mg PO QHS PRN sleep #30 tabs 10/17/23 Unknown Rx losartan 50 mg tablet 50 mg PO DAILY blood pressure #90 10/31/23 Unknown Rx tabs atorvastatin 40 mg tablet 40 mg PO DAILY CHOLESTEROL #90 tabs 11/21/23 Unknown Rx Allergy/AdvReac Type Severity Reaction Status Date / Time lisinopril Allergy Angioedema Verified 10/23/23 11:27 aspirin AdvReac HEARTBURN Verified 10/23/23 11:27 codeine AdvReac NIGHTMARES Verified 10/23/23 11:27 Family History Other CAD (coronary artery disease) Cancer Diabetes Heart disease Kidney disease Myocardial infarction Seizures Surgical History History of colonoscopy (07/10/21) History of tonsillectomy and adenoidectomy Hx of removal of testicle Social History household members: none housing: apartment Smoking Status: Current every day smoker tobacco type: cigarettes Tobacco: How many years used: 42 how long ago did patient quit smokin years quit 2019 alcohol intake: former details: Patient drinks intermittently-predominantly seems to binge drink at this po substance use type: marijuana and other details: Marijuana occasionally ROS ROS ED Constitutional Constitutional ED: Reports chills and fever(s) Eyes Eyes: Reports blurry vision; Denies diplopia ENT ENT ED: Reports rhinorrhea; Denies sore throat Cardiovascular Cardiovascular: Reports chest pain; Denies palpitations Respiratory/Chest Respiratory/Chest: Reports cough and dyspnea Gastrointestinal Gastrointestinal: Denies nausea or vomiting Genitourinary Genitourinary ED: Denies dysuria or hematuria Musculoskeletal Musculoskeletal: Reports back pain; Denies neck pain Integumentary Denies abscess or rash Neurologic Neurologic: Denies headache(s) or weakness Allergic/Immunologic Allergic/Immunologic ED: Denies mouth swelling or urticaria EXAM Physical Exam Const Vital Signs: 12/28/23 09:53 12/28/23 11:55 12/28/23 11:59 Temperature 98.2 F Temperature Source Oral Pulse Rate 99 93 98 Respiratory Rate 21 H 18 18 Blood Pressure 145/109 H 79/53 L 100/77 Blood Pressure Mean 121 61 84 Blood Pressure Source Monitor Blood Pressure Position Semi-Fowlers Blood Pressure Location Right Arm Pulse Ox 98 93 93 Oxygen Delivery Method Room Air Room Air Room Air Positive well nourished and well developed General Appearance ED: well developed and NAD HEENT Reports moist mucous membranes Neck supple, no meningeal signs and no JVD Resp normal respiratory effort Auscultation: rhonchi throughout Cardio regular rate and regular rhythm GI non-distended Palpation: soft and tender epigastric; Negative for guarding or rebound tenderness present Neuro oriented x3, CN's II-XII intact bilaterally and no sensory deficits noted Cullen Coma Scale: document GCS findings Spontaneous Obeys Commands Oriented 15 Sensorium / Orientation: alert Speech: speech normal Motor Exam: strength 5/5 throughout Psych mental status grossly normal MDM MDM MDM Narrative Medical decision making narrative: Differential diagnosis includes pneumonia, pneumothorax, cardiac dysrhythmia, cardiac ischemia, electrolyte abnormality, alcohol withdrawal, and anxiety. EKG will be obtained to assess for cardiac dysrhythmia and cardiac ischemia. Chest x-ray will be obtained to assess for pneumonia and pneumothorax. CBC will be obtained to assess for leukocytosis and anemia. Comprehensive metabolic profile will be obtained to assess for hepatic function, renal function, and electrolyte abnormality. PT with INR and PTT will be obtained to assess for coagulopathy. High-sensitivity troponin will be obtained to assess for cardiac ischemia. Serum lactate will be obtained to assess for sepsis. Serum alcohol level will be obtained to assess for alcohol intoxication. Urine drug screen will be obtained to assess for substance abuse. Lab Data Attestation: I reviewed the patient's lab results. Lab results narrative: CBC was reviewed. There is a mild anemia with a hemoglobin of 12.3 and hematocrit of 35.8. Platelets were slightly low at 88. Comprehensive metabolic profile was reviewed. Sodium was low at 114, potassium was low at 2.6, chloride was low at 74. Anion gap was normal at 14. Total bilirubin was mildly elevated at 3.0. AST was 373, ALT was 135, and alkaline phosphatase was 550. Lipase was reviewed and was elevated at 180. Serum lactate was reviewed and was normal at 1.6. Serum alcohol level was reviewed and was less than 3.0. Labs: Laboratory Results - last 24 hr 12/28/23 12/28/23 10:25 11:10 WBC 9.3 RBC 4.76 Hgb 12.3 L Hct 35.8 L MCV 75.2 L MCH 25.8 L MCHC 34.4 RDW Std Deviation 47.1 H RDW Coeff of Wen 17.9 H Plt Count 88 L MPV 11.7 Immature Gran % (Auto) 0.300 Neut % (Auto) 86.1 H Lymph % (Auto) 9.6 L Glenn % (Auto) 3.8 Eos % (Auto) 0.1 Baso % (Auto) 0.1 Absolute Neuts (auto) 8.0 H Absolute Lymphs (auto) 0.89 Nucleated RBC % 0 Differential Comment SCANNED Platelet Estimate MOD DEC Target Cells 3+ Sodium 114 L* Potassium 2.6 L* Chloride 74 L* Carbon Dioxide 25.0 Anion Gap 14 BUN 7 Creatinine 0.70 Estim Creat Clear Calc 121.02 Est GFR (MDRD) Af Amer 150 Est GFR (MDRD) Non-Af 124 BUN/Creatinine Ratio 10.1 Glucose 108 H Lactic Acid 1.6 Calcium 8.6 Total Bilirubin 3.00 H AST 373 H ALT 135 H Alkaline Phosphatase 550 H Troponin I High Sens 26 Total Protein 8.3 H Albumin 3.5 Globulin 4.8 H Albumin/Globulin Ratio 0.7 L Lipase 180 H Ethyl Alcohol < 3.0 Radiography Chest X-Ray - ED: 2 View, Read by ED Physician, Read by Radiologist and Left Infiltrate Diagnostic Testing: Clinical Impression(s) from Imaging Studies Chest X-Ray 12/28/23 11:45 IMPRESSION: 1. Fibrotic scarring and retrocardiac consolidation is present in the left lower lobe redemonstrated concerning for either chronic fibrotic consolidation/atelectasis or a malignancy. 2. Pulmonology/thoracic surgery consult and assessment is recommended as well as correlation with PET/CT exam to determine if there is any viable malignant neoplasm in this left lower lobe 3. High risk factors for lung malignancy. Enrolling the patient CT lung cancer yearly screening exam is recommended. Electronically Signed: Filiberto Khan MD at 12:35 EDT Reading Location ID and State: [facility] / [place] , Service support , Chest x-ray was obtained. There are 2 views. On my independent interpretation, there is retrocardiac consolidation and scarring in the left lower lobe. This could represent infiltrate, atelectasis, or malignancy. There is no cardiomegaly. Bony thorax is normal. Radiologist also interpreted the x-rays and agrees. EKG Initial EKG: Attestation: I personally reviewed and interpreted this EKG as follows: Interpretation: Sinus Rhythm (89) and Non-Specific ST Changes Comments: EKG was obtained. On my independent interpretation, it showed a normal sinus rhythm with a rate of 89. MN interval, QRS interval, and QTc intervals were all normal. There is left axis deviation -34. There are nonspecific ST-T wave changes. Prior EKG tracings: available for review Prior: Unchanged (10/13/2023) Management Discussion w/another healthcare provider: Hospitalist Treatment and Re-Evaluation :: Smoking cessation was discussed. Patient was given IV fluids. Patient was given IV and oral potassium. Patient was started on Rocephin and Zithromax. Patient was given a DuoNeb aerosol. Patient was advised of his findings. Patient was advised of the need for hospitalization. Case was discussed with Dr. Walton, hospitalist. He recommended admission to PCU. Patient understood and was agreeable with the plan. All questions were answered. Discharge Plan Dx/Rx/DC Orders Clinical Impression: Pneumonia, Left lower lobe pulmonary nodule, Alcohol withdrawal, Acute hyponatremia, Acute hypokalemia, Thrombocytopenia Disposition Disposition: Acute Care [facility]
--- NOTE | 2023-12-28 10:58 | EKG12_ITS ---
Test Reason : WD Blood Pressure : / mmHG Vent. Rate : 089 BPM Atrial Rate : 089 BPM P-R Int : 172 ms QRS Dur : 102 ms QT Int : 400 ms P-R-T Axes : 047 -34 048 degrees QTc Int : 486 ms Normal sinus rhythm Left axis deviation Septal infarct (cited on or before 13-DEC-2022) Abnormal ECG Confirmed by ANA MENDOSA, HOLLY ([id number]), visual effects editor LATRICE SMITH ([id number]) on 12/30/2023 7:49:48 AM Referred By: Confirmed By:HOLLY PEREZ MD
[2023-12-28 11:08] LABS: Absolute Lymphocyte Count 0.89 X10^3/uL (0.83-4.51); Basophil# 0.01 X10^3/uL; Basophil% 0.1 % (0-1); Eosinophil# 0.01 X10^3/uL; Eosinophils% 0.1 % (0-5); Hematocrit 35.8 % (40-54); Hemoglobin 12.3 g/dL (13.0-16.5); Lymphocyte # 0.89 X10^3/ul (0.83-4.51); Lymphocyte % 9.6 % (19-41); Mean Corp Hgb Conc 34.4 g/dL (32-36); Mean Corpuscular Hgb 25.8 pg (27.0-32.0); Mean Corpuscular Volume 75.2 fL (80-94); Mean Platelet Vol. 11.7 fl (6.2-12.0); Monocyte# 0.35 X10^3/uL; Monocyte% 3.8 % (0-10); NRBC Flagged by Analyzer 0 % (0-5); Neutrophil # 8.01 X10^3/uL (2.7-7.7); Neutrophil % 86.1 % (47-70); POSITIVE COUNT YES; Platelet Count 88 K/mm3 (150-450); RBC Distribution Width CV 17.9 % (11.6-14.6); RBC Distribution Width SD 47.1 fl (35.1-43.9); Red Blood Count 4.76 M/mm3 (4.6-6.2); White Blood Count 9.3 K/mm3 (4.4-11.0)
[2023-12-28 11:09] LABS: Differential Indicated SCAN CRITERIA MET
[2023-12-28] MEDS: Ipratropium/Albuterol Sulfate 3 ML AMPUL.NEB INHALATION ×2 (11:10→19:59)
[2023-12-28 11:33] LABS: ALB/GLOB Ratio 0.7 RATIO (0.9-2.4); AST(SGOT) 373 U/L (15-37); Alanine Aminotransfer ALT/SGPT 135 U/L (16-61); Albumin, Serum 3.5 g/dL (3.2-5.0); Alkaline Phosphatase 550 U/L (45-117); Anion Gap 14 (5-15); BUN 7 mg/dL (7-18); BUN/Creat Ratio 10.1 RATIO (10-20); Calcium,Total 8.6 mg/dL (8.5-10.1); Chloride 74 mmol/L (98-107); EST Glomerular Filtration Rate 124 mL/min (>60); Est Glom Filt Rate - Afr Amer 150 mL/min (>60); Estimated Creatinine Clearance 121.02 ml/min; Globulin 4.8 g/dL (2.2-4.2); Glucose 108 mg/dL (74-106); Lipase 180 U/L (13-75); Potassium 2.6 mmol/L (3.5-5.1); Protein, Total 8.3 g/dL (6.4-8.2); Sodium Level 114 mmol/L (136-145); Troponin-I HS (w/2H Reflex) 26 pg/mL (3.0-78.0)
[2023-12-28 11:45] LABS: Alcohol, Blood (Medical)-Serum < 3.0 mg/dL
--- NOTE | 2023-12-28 11:45 | RAD_ITS ---
STUDY: X-RAY CHEST REASON FOR EXAM: Male, 58 years old. Cough SOB and weakness x several days TECHNIQUE: PA and lateral views of the chest. COMPARISON: October 30, 2023. CT of the chest dated December 05, 2023 FINDINGS: Hyperinflated emphysematous lungs. Small calcified granuloma of the right lower lobe noted. No visualized acute consolidation. Fibrotic scarring and retrocardiac consolidation is present in the left lower lobe redemonstrated concerning for either chronic fibrotic consolidation/atelectasis or a malignancy. Pulmonology/thoracic surgery consult and assessment is recommended as well as correlation with PET/CT exam to determine if there is any viable malignant neoplasm in this left lower lobe.. No acute process is seen. There is no demonstrated pleural abnormality. Normal size heart. Normal mediastinum and june. Normal visualized pulmonary arteries. There is atherosclerotic calcification of the aortic arch with tortuosity. There are diffuse degenerative changes of the visualized thoracic spine. Normal visualized ribs, clavicles, and shoulders. There is no demonstrated abnormality of the visualized soft tissue structures of the upper abdomen. RAD/Chest PA and Lateral IMPRESSION: 1. Fibrotic scarring and retrocardiac consolidation is present in the left lower lobe redemonstrated concerning for either chronic fibrotic consolidation/atelectasis or a malignancy. 2. Pulmonology/thoracic surgery consult and assessment is recommended as well as correlation with PET/CT exam to determine if there is any viable malignant neoplasm in this left lower lobe 3. High risk factors for lung malignancy. Enrolling the patient CT lung cancer yearly screening exam is recommended. Electronically Signed: Filiberto Khan MD at 12:35 EDT ,
[2023-12-28 11:54] LABS: Lactic Acid 1.6 mmol/L (0.4-1.9)
[2023-12-28] MEDS: 0.9% Normal Saline (1000mL) 1,000 ML 1000 ML IV (11:54)
[2023-12-28] MEDS: Potassium Chloride Oral Tablet 20 MEQ 40 MEQ PO ×2 (11:54→16:25)
[2023-12-28 12:24] LABS: Differential Comment SCANNED; Platelet Estimate MOD DEC (ADEQ); Target Cells 3+
--- NOTE | 2023-12-28 12:38 | HP.PCM.HOS_ITS ---
[facility] - General General Date of Admission: 12/28/23 Date of Service: 12/28/23 Chief Complaint: Shortness of breath HPI Narrative NICOLE KEITH, is a 58 M with significant past medical history including chronic alcohol dependence, hypertension, dyslipidemia and GERD who presented with shortness of breath. Per patient symptoms started a couple of days prior to his admission. He did notice increasing shortness of breath with minimal activity. Also had a productive cough. He also did complain of pleuritic chest pain. Presented to the emergency department due to worsening symptoms. Patient also did admit to heavy use of alcohol drinking 12-15 beers a day. Patient has undergone previous detox. Checks x-ray on admission was questionable for infiltrate in the left lower lobe. Patient was also found to have profound hyponatremia and hypokalemia. Treatment initiated in the ED patient admitted to monitored bed for further management [facility] Medical History Left lower lobe pulmonary nodule History of smoking Hypomagnesemia Alcoholism Left lower lobe pneumonia Hyperbilirubinemia Depression Smoker COPD (chronic obstructive pulmonary disease) History of CVA (cerebrovascular accident) Tobacco use Desire for detoxification Old myocardial infarction Hyperlipidemia Hyperglycemia Ischemic stroke History of recent stroke Alcohol abuse Right thalamic stroke Wears glasses Anxiety Marijuana use Alcohol use Arthritis Back pain Smoker History of pain when walking Hx of fracture of leg GERD (gastroesophageal reflux disease) Chronic hyponatremia Alcohol abuse Tobacco use Hypertension Home Medications ?Medication ?Instructions ?Recorded ?Last Taken ?Type aspirin 81 mg chewable tablet 81 mg PO BREAKFAST [facility] 05/29/23 09/04/23 Rx #90 tabs multivitamin (Daily Multi-Vitamin 1 tab PO DAILY supplement #30 tabs 06/28/23 09/04/23 Rx tablet) omeprazole 20 mg capsule,delayed 20 mg PO DAILY ACID REFLUX 09/04/23 09/04/23 History release amlodipine 10 mg tablet 10 mg PO DAILY BLOOD PRESSURE #90 09/24/23 Unknown Rx tabs trazodone 50 mg tablet 50 mg PO QHS PRN sleep #30 tabs 10/17/23 Unknown Rx losartan 50 mg tablet 50 mg PO DAILY blood pressure #90 10/31/23 Unknown Rx tabs atorvastatin 40 mg tablet 40 mg PO DAILY CHOLESTEROL #90 tabs 11/21/23 Unknown Rx Allergy/AdvReac Type Severity Reaction Status Date / Time lisinopril Allergy Angioedema Verified 10/23/23 11:27 aspirin AdvReac HEARTBURN Verified 10/23/23 11:27 codeine AdvReac NIGHTMARES Verified 10/23/23 11:27 Family History Other CAD (coronary artery disease) Cancer Diabetes Heart disease Kidney disease Myocardial infarction Seizures Surgical History History of colonoscopy (07/10/21) History of tonsillectomy and adenoidectomy Hx of removal of testicle Social History household members: none housing: apartment Smoking Status: Current every day smoker tobacco type: cigarettes Tobacco: How many years used: 42 how long ago did patient quit smokin years quit 2018 alcohol intake: former details: Patient drinks intermittently-predominantly seems to binge drink at this po substance use type: marijuana and other details: Marijuana occasionally ROS ROS Narrative GENERAL: denies fever, chills, night sweats, weight loss, anorexia HEENT: denies headache, sinus congestion, or drainage, dysphagia RESPIRATORY: cough, sputum production, shortness of breath, dyspnea on exertion CARDIAC: denies chest pain, palpitations, orthopnea, PND GASTROINTESTINAL: denies abdominal pain, nausea, vomiting, melena, GENITOURINARY: denies dysuria, urgency, frequency, heamaturia EXTREMITY: denies swelling MUSCULOSKELETAL: denies current joint pain or tenderness NEUROLOGIC: denies focal numbness, weakness, tingling HEMATOLOGIC: denies easy bruising and/or hemorrhage INTEGUMENT: denies rashes PSYCHIATRIC: denies suicidal or homicidal ideation Vital Signs Vital Signs Vital Signs: 12/28/23 09:53 12/28/23 11:55 12/28/23 11:59 Temperature 98.2 F Temperature Source Oral Pulse Rate 99 93 98 Respiratory Rate 21 H 18 18 Blood Pressure 145/109 H 79/53 L 100/77 Blood Pressure Mean 121 61 84 Blood Pressure Source Monitor Blood Pressure Position Semi-Fowlers Blood Pressure Location Right Arm Pulse Ox 98 93 93 Oxygen Delivery Method Room Air Room Air Room Air Weight Weight: 77 kg Body Mass Index (BMI) 23.6 Physical Exam Narrative GENERAL: cooperative HEENT: Atraumatic; normocephalic EYES; Anicteric, Normal Conjunctiva NECK; supple, normal thyroid, RESPIRATORY: Diminished to auscultation CARDIOVASCULAR: Regular S1 S2, GI: soft, normoactive bowel sounds, : No Renal angle tenderness; EXTREMITIES: No edema, no clubbing, MUSCULOSKELETAL: no muscle wasting NEURO: Awake; no lateralizing signs. SKIN: No Rash PSYCH; Flat affect Results Lab / Micro Data 12/28/23 10:25 12/28/23 10:25 Labs: Laboratory Results - last 24 hr 12/28/23 10:25: WBC 9.3, RBC 4.76, Hgb 12.3 L, Hct 35.8 L, MCV 75.2 L, MCH 25.8 L, MCHC 34.4, RDW Std Deviation 47.1 H, RDW Coeff of Wen 17.9 H, Plt Count 88 L, MPV 11.7, Immature Gran % (Auto) 0.300, Neut % (Auto) 86.1 H, Lymph % (Auto) 9.6 L, Howell % (Auto) 3.8, Eos % (Auto) 0.1, Baso % (Auto) 0.1, Absolute Neuts (auto) 8.0 H, Absolute Lymphs (auto) 0.89, Nucleated RBC % 0, Differential Comment SCANNED, Platelet Estimate MOD DEC, Target Cells 3+, Sodium 114 L*, Potassium 2.6 L*, Chloride 74 L*, Carbon Dioxide 25.0, Anion Gap 14, BUN 7, Creatinine 0.70, Estim Creat Clear Calc 121.02, Est GFR (MDRD) Af Amer 150, Est GFR (MDRD) Non-Af 124, BUN/Creatinine Ratio 10.1, Glucose 108 H, Calcium 8.6, Total Bilirubin 3.00 H, AST 373 H, ALT 135 H, Alkaline Phosphatase 550 H, Troponin I High Sens 26, Total Protein 8.3 H, Albumin 3.5, Globulin 4.8 H, Albumin/Globulin Ratio 0.7 L, Lipase 180 H 12/28/23 11:10: Lactic Acid 1.6, Ethyl Alcohol < 3.0 Imaging Radiology Impression Chest X-Ray 12/28/23 11:45 IMPRESSION: 1. Fibrotic scarring and retrocardiac consolidation is present in the left lower lobe redemonstrated concerning for either chronic fibrotic consolidation/atelectasis or a malignancy. 2. Pulmonology/thoracic surgery consult and assessment is recommended as well as correlation with PET/CT exam to determine if there is any viable malignant neoplasm in this left lower lobe 3. High risk factors for lung malignancy. Enrolling the patient CT lung cancer yearly screening exam is recommended. Electronically Signed: Filiberto Khan MD at 12:35 EDT Reading Location ID and State: [facility] / [place] , Service support , Assessment & Plan Assessment/Plan (1) Acute hypokalemia: (2) Acute hyponatremia: (3) Thrombocytopenia: (4) Alcohol withdrawal: (5) Left lower lobe pneumonia: PLAN: Plan Patient is a 58-year-old gentleman with history of chronic alcohol dependence who presented to the emergency department with shortness of breath and left- sided pleuritic chest pain. Was found to have infiltrate on his chest x-ray as well as significant electrolyte abnormalities including hypokalemia and hyponatremia 1. Pneumonia - Suspected to be secondary to streptococcal pneumonia, cultures including blood and sputum sent, viral respiratory panel and COVID assay also sent.. Patient placed on Rocephin and Zithromax and placed on oxygen titrated to keep Pulse Ox greater than 90. 2. Acute alcohol withdrawal - Patient has been admitted for treatment with phenobarb taper in addition to adjuvant medications including gabapentin, Bentyl, hydroxyzine and clonidine as needed for alcohol withdrawal symptoms. Patient was also placed on thiamine and folic acid. Consultation placed to 180 counseling services 3.. Acute on chronic hyponatremia ?Secondary to beer potomania. Patient was started on saline in addition to sodium tablet 1 g 3 times daily. Response to therapy being monitored with BMP every 4 hours 4. Hypokalemia ? Corrected per protocol repeat labs ordered for eval 5. Acute alcoholic hepatitis ? AST was 373 ALT 135 alkaline phosphatase 550. Monitoring with daily LFTs 6. Hypertension - Blood pressure controlled, home medications continued with dose adjustment as needed 7. Dyslipidemia ?Patient is on statin therapy, continued at home dose 8. GERD ? Patient is on omeprazole did continue 9. History of traumatic intracranial hemorrhage ?Managed conservatively 10. Tobacco dependence - Counseled on cessation, offered nicotine patch for tobacco cravings 11. Thrombocytopenia ? Secondary to chronic alcohol abuse no signs of bleeding at this point ordered CBC with differential in a.m. for monitoring 12. DVT prophylaxis ? Chemoprophylaxis contraindicated given patient low platelet count will monitor Advance planning; did discuss with the patientregarding advanced directives as well as CODE STATUS. Did explain the various scenarios involved ( FULL CODE, DNR CCA, DNR CCA with no intubation, and DNR CC and what each meant) patient elected to remain full code with CPR and intubation if needed. Order was placed. Time spent on discussion 16 minutes. Charges/Coding Multi Select Codes Visit Charges Visit Charges: 53330 Init Hosp Hospitalists' Procedures Procedures: 92699 Advncd Care Plan 30 Min
[2023-12-28] MEDS: Ceftriaxone 2 GM in 0.9% Normal Saline (50mL MB+) 50 ML IV (12:49)
[2023-12-28] MEDS: Potassium Chloride 10mEq/100mL 10 MEQ/100 ML IV.SOLN. 100 MEQ IV BOLUS ×6 (12:53→20:05)
--- NOTE | 2023-12-28 13:02 | NURSING ---
PCU KITTOE HYPONATREMIA, ALCOHOL WITHDRAWAL, PNEUMONIA
[2023-12-28 13:03] LABS: Reflex Troponin-HS? (from REC) Y
[2023-12-28] MEDS: Azithromycin 500 MG in Dextrose 5%-Water (250mL Bag) 250 ML 250 MG IV (13:28)
[2023-12-28 13:40] LABS: Phosphorus 3.4 mg/dL (2.5-4.9)
[2023-12-28 13:41] LABS: Magnesium 1.8 mg/dL (1.6-2.6); Troponin-I HS 19 pg/mL (3.0-78.0)
[2023-12-28] MEDS: Phenobarbital 32.4 MG Tablet PO ×3 (15:16→23:08)
[2023-12-28] MEDS: Albuterol 2.5 MG/3 ML VIAL.NEB. INHALATION (15:20)
[2023-12-28] MEDS: 0.9% Normal Saline (1000mL) 1,000 ML 150 ML IV ×2 (15:30→23:08)
[2023-12-28 15:42] LABS: Anion Gap 13 (5-15); BUN 6 mg/dL (7-18); BUN/Creat Ratio 11.4 RATIO (10-20); Calcium,Total 7.7 mg/dL (8.5-10.1); Chloride 80 mmol/L (98-107); Creatinine, Serum 0.53 mg/dL (0.70-1.30); EST Glomerular Filtration Rate 170 mL/min (>60); Est Glom Filt Rate - Afr Amer 206 mL/min (>60); Estimated Creatinine Clearance 159.83 ml/min; Glucose 129 mg/dL (74-106); Potassium 2.9 mmol/L (3.5-5.1); Sodium Level 116 mmol/L (136-145)
[2023-12-28] MEDS: Pantoprazole Sodium 20 MG Tablet PO (16:24)
[2023-12-28] MEDS: guaiFENesin 1,200 MG Tablet 1200 MG PO ×2 (16:24→23:08)
[2023-12-28] MEDS: amLODIPine 10 MG Tablet PO (16:25)
[2023-12-28] MEDS: Sodium Chloride 1 GM Tablet PO ×2 (16:26→23:09)
[2023-12-28] MEDS: Losartan Potassium 50 MG Tablet PO (16:31)
[2023-12-28] MEDS: Potassium Chloride Oral Tablet 20 MEQ PO (17:40)
[2023-12-28 20:39] LABS: Mucous, Urine 0 SEEN /hpf (<or=2+); Red Blood Cells-Urine 0 SEEN /hpf (0-5); Squamous Epithelial Cells - UA 0 SEEN /hpf (0-5)
[2023-12-28 20:47] LABS: Anion Gap 10 (5-15); BUN 7 mg/dL (7-18); BUN/Creat Ratio 11.6 RATIO (10-20); Calcium,Total 7.5 mg/dL (8.5-10.1); Chloride 85 mmol/L (98-107); EST Glomerular Filtration Rate 146 mL/min (>60); Est Glom Filt Rate - Afr Amer 177 mL/min (>60); Estimated Creatinine Clearance 141.19 ml/min; Glucose 136 mg/dL (74-106); Sodium Level 120 mmol/L (136-145)
[2023-12-28 20:51] LABS: Color, Urine Amber (Yellow); Glucose, Dipstick Normal (Normal); Ketone-Dipstick 15 mg/dl (Negative); Leukocyte Esterase-Dipstick 25 /ul (Negative); Nitrite-Dipstick Positive (Negative); Occult Blood-Urine 25 /ul (Negative); Protein-Dipstick 500 mg/dl (Negative); Specific Gravity, Urine 1.015 (1.002-1.030); Urine Clarity Clear (Clear); Urine Urobilinogen 8 mg/dl (Normal); Urine pH 6.5 (5.0 - 8.0)
[2023-12-28 21:16] LABS: Amphetamine Urine VISTA NEGATIVE (<1000 ng/mL); Barbiturate Urine VISTA NEGATIVE (< 200 ng/mL); Benzodiazepine Urine VISTA NEGATIVE (< 200 ng/mL); Cocaine Urine VISTA NEGATIVE (< 300 ng/mL); Ecstacy Urine VISTA NEGATIVE (< 500 ng/mL); Methadone Urine VISTA NEGATIVE (< 300 ng/mL); PCP Urine VISTA NEGATIVE (< 25 ng/mL); THC Urine VISTA POSITIVE (< 50 ng/mL); Vista UDS pH Range 6
[2023-12-28 21:19] LABS: Urine Bilirubin Dipstick 3 mg/dL (Negative)
[2023-12-28 21:23] LABS: Bacteria 2+ /hpf (None Seen); White Blood Cells 10-25 SEEN /hpf (0-5)
[2023-12-28] MEDS: Atorvastatin Calcium 40 MG Tablet PO (23:08)
[2023-12-28 23:53] LABS: Anion Gap 8 (5-15); BUN 8 mg/dL (7-18); BUN/Creat Ratio 16.5 RATIO (10-20); Calcium,Total 7.3 mg/dL (8.5-10.1); Chloride 90 mmol/L (98-107); Creatinine, Serum 0.49 mg/dL (0.70-1.30); EST Glomerular Filtration Rate 187 mL/min (>60); Est Glom Filt Rate - Afr Amer 226 mL/min (>60); Estimated Creatinine Clearance 172.88 ml/min; Glucose 92 mg/dL (74-106); Potassium 3.8 mmol/L (3.5-5.1); Sodium Level 120 mmol/L (136-145)
[2023-12-29] VITALS (9 sets, daily range): BP systolic 109–117; BP diastolic 69–82; PULSE 78–95; RESP 16–20; TEMP 36.1–37.2; O2SAT 93–100; BMI 22.2
[2023-12-29 02:55] LABS: Anion Gap 7 (5-15); BUN 6 mg/dL (7-18); BUN/Creat Ratio 14.4 RATIO (10-20); Calcium,Total 7.3 mg/dL (8.5-10.1); Chloride 93 mmol/L (98-107); Creatinine, Serum 0.42 mg/dL (0.70-1.30); EST Glomerular Filtration Rate 222 mL/min (>60); Est Glom Filt Rate - Afr Amer 269 mL/min (>60); Glucose 86 mg/dL (74-106); Potassium 3.6 mmol/L (3.5-5.1); Sodium Level 120 mmol/L (136-145)
[2023-12-29] MEDS: Phenobarbital 32.4 MG Tablet PO ×6 (03:32→23:38)
[2023-12-29] MEDS: Ipratropium/Albuterol Sulfate 3 ML AMPUL.NEB INHALATION ×3 (04:22→19:27)
[2023-12-29] MEDS: Sodium Chloride 1 GM Tablet PO ×3 (05:32→21:40)
[2023-12-29] MEDS: 0.9% Normal Saline (1000mL) 1,000 ML 150 ML IV ×3 (05:32→18:55)
[2023-12-29 06:21] LABS: Absolute Lymphocyte Count 0.93 X10^3/uL (0.83-4.51); Absolute Neutrophil Count 8.6 X10^3/uL (2.0-7.7); Basophil# 0.01 X10^3/uL; Basophil% 0.1 % (0-1); Eosinophil# 0.02 X10^3/uL; Eosinophils% 0.2 % (0-5); Hematocrit 25.5 % (40-54); Hemoglobin 8.8 g/dL (13.0-16.5); Lymphocyte # 0.93 X10^3/ul (0.83-4.51); Lymphocyte % 9.3 % (19-41); Mean Corp Hgb Conc 34.5 g/dL (32-36); Mean Corpuscular Hgb 26.4 pg (27.0-32.0); Mean Corpuscular Volume 76.6 fL (80-94); Mean Platelet Vol. 11.6 fl (6.2-12.0); Monocyte# 0.34 X10^3/uL; Monocyte% 3.4 % (0-10); NRBC Flagged by Analyzer 0 % (0-5); Neutrophil # 8.63 X10^3/uL (2.7-7.7); Neutrophil % 86.6 % (47-70); POSITIVE COUNT YES; Platelet Count 65 K/mm3 (150-450); RBC Distribution Width CV 18.3 % (11.6-14.6); RBC Distribution Width SD 49.7 fl (35.1-43.9); Red Blood Count 3.33 M/mm3 (4.6-6.2)
[2023-12-29] MEDS: Aspirin 81 MG TAB.CHEW PO (07:05)
[2023-12-29] MEDS: Folic Acid 1 MG Tablet PO (07:05)
[2023-12-29] MEDS: Thiamine Hydrochloride 100 MG Tablet PO (07:05)
[2023-12-29] MEDS: Multivitamins,Therapeutic Tablet 1 TABLET PO (07:05)
[2023-12-29] MEDS: Potassium Chloride Oral Tablet 20 MEQ PO ×2 (07:08→16:35)
--- NOTE | 2023-12-29 07:25 | PCM.PN.HOSP ---
Reason for Visit Reason for Visit: Diagnoses Thrombocytopenia, unspecified (12/28/23) Hypo-osmolality and hyponatremia (12/28/23) Hypokalemia (12/28/23) Alcohol use, unspecified with withdrawal, unspecified (12/28/23) Pneumonia, unspecified organism (12/28/23) Subjective Subjective Patient seen his electrolyte abnormalities persist Objective Data Objective Data Vital Signs: Vital Signs Temp Pulse Resp BP Pulse Ox O2 Del Method 97.0 F L 80 18 112/69 93 Room Air 12/29/23 03:45 12/29/23 04:23 12/29/23 04:23 12/29/23 03:45 12/29/23 03:45 12/29/23 06:05 Oxygen Delivery Method Room Air Weight: 72.2 kg Body Mass Index (BMI) 22.2 Intake & Output: Intake and Output for Last 24 Hours 12/27/23 12/28/23 12/29/23 23:59 23:59 23:59 Intake Total 3505 / 3855 1710 / 1710 Balance 3505 / 3855 1710 / 1710 Lab / Micro Data 12/29/23 06:09 12/29/23 06:09 Labs: Laboratory Results - last 24 hr 12/28/23 10:25: WBC 9.3, RBC 4.76, Hgb 12.3 L, Hct 35.8 L, MCV 75.2 L, MCH 25.8 L, MCHC 34.4, RDW Std Deviation 47.1 H, RDW Coeff of Wen 17.9 H, Plt Count 88 L, MPV 11.7, Immature Gran % (Auto) 0.300, Neut % (Auto) 86.1 H, Lymph % (Auto) 9.6 L, Cecil % (Auto) 3.8, Eos % (Auto) 0.1, Baso % (Auto) 0.1, Absolute Neuts (auto) 8.0 H, Absolute Lymphs (auto) 0.89, Nucleated RBC % 0, Differential Comment SCANNED, Platelet Estimate MOD DEC, Target Cells 3+, Sodium 114 L*, Potassium 2.6 L*, Chloride 74 L*, Carbon Dioxide 25.0, Anion Gap 14, BUN 7, Creatinine 0.70, Estim Creat Clear Calc 121.02, Est GFR (MDRD) Af Amer 150, Est GFR (MDRD) Non-Af 124, BUN/Creatinine Ratio 10.1, Glucose 108 H, Calcium 8.6, Total Bilirubin 3.00 H, AST 373 H, ALT 135 H, Alkaline Phosphatase 550 H, Troponin I High Sens 26, Total Protein 8.3 H, Albumin 3.5, Globulin 4.8 H, Albumin/Globulin Ratio 0.7 L, Lipase 180 H 12/28/23 11:10: Lactic Acid 1.6, Ethyl Alcohol < 3.0 12/28/23 13:15: Phosphorus 3.4, Magnesium 1.8, Troponin I High Sens 19 12/28/23 15:00: Sodium 116 L*, Potassium 2.9 L, Chloride 80 L, Carbon Dioxide 23.0, Anion Gap 13, BUN 6 L, Creatinine 0.53 L, Estim Creat Clear Calc 159.83, Est GFR (MDRD) Af Amer 206, Est GFR (MDRD) Non-Af 170, BUN/Creatinine Ratio 11.4, Glucose 129 H, Calcium 7.7 L 12/28/23 18:45: Sodium 120 L, Potassium 3.0 L, Chloride 85 L, Carbon Dioxide 24.0, Anion Gap 10, BUN 7, Creatinine 0.60 L, Estim Creat Clear Calc 141.19, Est GFR (MDRD) Af Amer 177, Est GFR (MDRD) Non-Af 146, BUN/Creatinine Ratio 11.6, Glucose 136 H, Calcium 7.5 L 12/28/23 20:25: Urine Color Martina, Urine Clarity Clear, Urine pH 6.5, Ur Specific Williams 1.015, Urine Protein 500 H, Urine Glucose (UA) Normal, Urine Ketones 15 H, Urine Occult Blood 25 H, Urine Nitrite Positive H, Urine Bilirubin 3 H, Urine Urobilinogen 8 H, Ur Leukocyte Esterase 25 H, Urine RBC 0 SEEN, Urine WBC 10-25 SEEN, Ur Squamous Epith Cells 0 SEEN, Urine Bacteria 2+, Urine Mucus 0 SEEN, Urine Opiates Screen NEGATIVE, Urine Methadone Screen NEGATIVE, Ur Barbiturates Screen NEGATIVE, Ur Phencyclidine Scrn NEGATIVE, Ur Amphetamines Screen NEGATIVE, MDMA (Ecstasy) Screen NEGATIVE, U Benzodiazepines Scrn NEGATIVE, Urine Cocaine Screen NEGATIVE, U Cannabinoids Screen POSITIVE H, Ur Drug Screen Comment 12/28/23 23:10: Sodium 120 L, Potassium 3.8, Chloride 90 L, Carbon Dioxide 22.0, Anion Gap 8, BUN 8, Creatinine 0.49 L, Estim Creat Clear Calc 172.88, Est GFR (MDRD) Af Amer 226, Est GFR (MDRD) Non-Af 187, BUN/Creatinine Ratio 16.5, Glucose 92, Calcium 7.3 L 12/29/23 02:23: Sodium 120 L, Potassium 3.6, Chloride 93 L, Carbon Dioxide 20.0 L, Anion Gap 7, BUN 6 L, Creatinine 0.42 L, Estim Creat Clear Calc 201.70, Est GFR (MDRD) Af Amer 269, Est GFR (MDRD) Non-Af 222, BUN/Creatinine Ratio 14.4, Glucose 86, Calcium 7.3 L 12/29/23 06:09: WBC 10.0, RBC 3.33 L, Hgb 8.8 L, Hct 25.5 L, MCV 76.6 L, MCH 26.4 L, MCHC 34.5, RDW Std Deviation 49.7 H, RDW Coeff of Wen 18.3 H, Plt Count 65 L, MPV 11.6, Immature Gran % (Auto) 0.400, Neut % (Auto) 86.6 H, Lymph % (Auto) 9.3 L, Cecil % (Auto) 3.4, Eos % (Auto) 0.2, Baso % (Auto) 0.1, Absolute Neuts (auto) 8.6 H, Absolute Lymphs (auto) 0.93, Nucleated RBC % 0 Micro: Microbiology 12/28/23 19:18 Mucosa - Nasopharyngeal Coronavirus COVID-19 PCR - Final 12/28/23 19:18 Mucosa - Nasopharyngeal Respiratory Panel (PCR) - Final 12/28/23 20:25 Urine, Clean Catch Legionella Antigen - Final 12/28/23 20:25 Urine, Clean Catch Streptococcus pneumoniae Antigen (M - Final Radiography Diagnostic Testing: Radiology Impression Chest X-Ray 12/28/23 11:45 IMPRESSION: 1. Fibrotic scarring and retrocardiac consolidation is present in the left lower lobe redemonstrated concerning for either chronic fibrotic consolidation/atelectasis or a malignancy. 2. Pulmonology/thoracic surgery consult and assessment is recommended as well as correlation with PET/CT exam to determine if there is any viable malignant neoplasm in this left lower lobe 3. High risk factors for lung malignancy. Enrolling the patient CT lung cancer yearly screening exam is recommended. Electronically Signed: Filiberto Khan MD at 12:35 EDT Reading Location ID and State: [facility] / [place] , Service support , Physical Exam Narrative GENERAL: cooperative HEENT: Atraumatic; normocephalic EYES; Anicteric, Normal Conjunctiva NECK; supple, normal thyroid, RESPIRATORY: Diminished to auscultation CARDIOVASCULAR: Regular S1 S2, GI: soft, normoactive bowel sounds, : No Renal angle tenderness; EXTREMITIES: No edema, no clubbing, MUSCULOSKELETAL: no muscle wasting NEURO: Awake; no lateralizing signs. SKIN: No Rash PSYCH; Flat affect Assessment & Plan Assessment/Plan (1) Acute hypokalemia: (2) Acute hyponatremia: (3) Thrombocytopenia: (4) Alcohol withdrawal: (5) Left lower lobe pneumonia: PLAN: Plan Patient is a 58-year-old gentleman with history of chronic alcohol dependence who presented to the emergency department with shortness of breath and left-sided pleuritic chest pain. Was found to have infiltrate on his chest x-ray as well as significant electrolyte abnormalities including hypokalemia and hyponatremia 1. Pneumonia - Suspected to be secondary to streptococcal pneumonia, cultures including blood and sputum sent, viral respiratory panel and COVID assay also sent.. Patient placed on Rocephin and Zithromax and placed on oxygen titrated to keep Pulse Ox greater than 90. ? 12/29/2023; patient currently off oxygen saturating 97% on room air 2. Acute alcohol withdrawal - Patient has been admitted for treatment with phenobarb taper in addition to adjuvant medications including gabapentin, Bentyl, hydroxyzine and clonidine as needed for alcohol withdrawal symptoms. Patient was also placed on thiamine and folic acid. Consultation placed to [facility] counseling services 3.. Acute on chronic hyponatremia ?Secondary to beer potomania. Patient was started on saline in addition to sodium tablet 1 g 3 times daily. Response to therapy being monitored with BMP every 4 hours ? 12/29/2023 sodium levels up to 120 will decrease the frequency of BMP checks 4. Hypokalemia ? Corrected per protocol repeat labs ordered for eval 5. Acute alcoholic hepatitis ? AST was 373 ALT 135 alkaline phosphatase 550. Monitoring with daily LFTs 6. Hypertension - Blood pressure controlled, home medications continued with dose adjustment as needed 7. Dyslipidemia ?Patient is on statin therapy, continued at home dose 8. GERD ? Patient is on omeprazole did continue 9. History of traumatic intracranial hemorrhage ?Managed conservatively 10. Tobacco dependence - Counseled on cessation, offered nicotine patch for tobacco cravings 11. Thrombocytopenia ? Secondary to chronic alcohol abuse no signs of bleeding at this point ordered CBC with differential in a.m. for monitoring 12. DVT prophylaxis ? Chemoprophylaxis contraindicated given patient low platelet count will monitor 13. Hypophosphatemia -corrected per protocol repeat labs ordered in a.m. 13. Hypomagnesemia -corrected for protocol repeat labs ordered in a.m. Time spent in the patient's overall evaluation,decision-making process, review of diagnostic data, adjustment of management, discussion with other providers, nursing nursing and ancillary staff involved in patient's care documentation, 50 Minutes Charges/Coding Visit Charges Inpatient E&M: 38386 Subs Hosp L3
[2023-12-29 07:37] LABS: AST(SGOT) 318 U/L (15-37); Alanine Aminotransfer ALT/SGPT 110 U/L (16-61); Albumin, Serum 2.4 g/dL (3.2-5.0); Alkaline Phosphatase 427 U/L (45-117); Anion Gap 8 (5-15); BUN 5 mg/dL (7-18); BUN/Creat Ratio 10.5 RATIO (10-20); Bilirubin, Direct 0.92 mg/dL (0.00-0.30); Calcium,Total 7.3 mg/dL (8.5-10.1); Chloride 94 mmol/L (98-107); Creatinine, Serum 0.48 mg/dL (0.70-1.30); EST Glomerular Filtration Rate 190 mL/min (>60); Est Glom Filt Rate - Afr Amer 230 mL/min (>60); Estimated Creatinine Clearance 169.22 ml/min; Globulin 3.3 g/dL (2.2-4.2); Glucose 151 mg/dL (74-106); Magnesium 1.4 mg/dL (1.6-2.6); Phosphorus 0.6 mg/dL (2.5-4.9); Potassium 3.2 mmol/L (3.5-5.1); Protein, Total 5.7 g/dL (6.4-8.2); Sodium Level 120 mmol/L (136-145)
[2023-12-29] MEDS: Ceftriaxone 2 GM in 0.9% Normal Saline (50mL MB+) 50 ML IV (09:09)
[2023-12-29] MEDS: amLODIPine 10 MG Tablet PO (09:10)
[2023-12-29] MEDS: Losartan Potassium 50 MG Tablet PO (09:10)
[2023-12-29] MEDS: Pantoprazole Sodium 20 MG Tablet PO (09:10)
[2023-12-29] MEDS: guaiFENesin 1,200 MG Tablet 1200 MG PO ×2 (09:10→21:40)
[2023-12-29] MEDS: Potassium Chloride Oral Tablet 20 MEQ 40 MEQ PO (09:30)
[2023-12-29 10:37] LABS: Anion Gap 12 (5-15); BUN 5 mg/dL (7-18); BUN/Creat Ratio 10.9 RATIO (10-20); Calcium,Total 7.5 mg/dL (8.5-10.1); Chloride 90 mmol/L (98-107); Creatinine, Serum 0.46 mg/dL (0.70-1.30); EST Glomerular Filtration Rate 201 mL/min (>60); Est Glom Filt Rate - Afr Amer 243 mL/min (>60); Estimated Creatinine Clearance 176.58 ml/min; Glucose 118 mg/dL (74-106); Potassium 3.3 mmol/L (3.5-5.1); Sodium Level 122 mmol/L (136-145)
--- NOTE | 2023-12-29 10:44 | ADDICTION ---
Pt was met with for RAMP assessment and to complete AUDIT, DUDIT, ASAM, [place], and DC Plan. Pt states that he is concerned about his drinking but he is not interested in exploring residential or inpatient at this time. Pt states that his discharge plan is to return to services at [facility] after d/c from [facility]. Pt declines a need for transportation from [facility].
[2023-12-29] MEDS: Azithromycin 500 MG in Dextrose 5%-Water (250mL Bag) 250 ML 250 MG IV (10:55)
[2023-12-29] MEDS: Magnesium Sulfate 2 GM in Dextrose 5%-Water (100mL Bag) 100 ML IV (12:05)
[2023-12-29] MEDS: Magnesium Chloride 64 MG Delay Rel.Tablet 128 MG PO ×2 (12:07→21:40)
[2023-12-29] MEDS: Na Biphos/Potassium Phosphate PACKET 1 PACKET PO ×2 (12:07→21:40)
[2023-12-29] MEDS: Albuterol 2.5 MG/3 ML VIAL.NEB. INHALATION ×2 (15:07→17:04)
[2023-12-29] MEDS: Loperamide 2 MG Capsule PO (20:09)
[2023-12-29] MEDS: traZODone 50 MG Tablet PO (21:40)
[2023-12-29] MEDS: Atorvastatin Calcium 40 MG Tablet PO (21:40)
[2023-12-30] VITALS (7 sets, daily range): BP systolic 114–124; BP diastolic 84–89; PULSE 84–92; RESP 16; TEMP 36.8–37.2; O2SAT 94–95; BMI 23.0
[2023-12-30] MEDS: Phenobarbital 32.4 MG Tablet PO ×5 (03:30→22:42)
[2023-12-30 06:18] LABS: Absolute Lymphocyte Count 1.35 X10^3/uL (0.83-4.51); Basophil# 0.02 X10^3/uL; Basophil% 0.3 % (0-1); Eosinophil# 0.16 X10^3/uL; Hematocrit 25.5 % (40-54); Hemoglobin 8.5 g/dL (13.0-16.5); Lymphocyte # 1.35 X10^3/ul (0.83-4.51); Mean Corp Hgb Conc 33.3 g/dL (32-36); Mean Corpuscular Hgb 26.2 pg (27.0-32.0); Mean Corpuscular Volume 78.5 fL (80-94); Mean Platelet Vol. 12.4 fl (6.2-12.0); Monocyte# 0.41 X10^3/uL; Monocyte% 5.2 % (0-10); NRBC Flagged by Analyzer 0 % (0-5); Neutrophil # 5.95 X10^3/uL (2.7-7.7); Neutrophil % 74.9 % (47-70); POSITIVE COUNT YES; Platelet Count 71 K/mm3 (150-450); RBC Distribution Width CV 19.2 % (11.6-14.6); RBC Distribution Width SD 53.7 fl (35.1-43.9); Red Blood Count 3.25 M/mm3 (4.6-6.2); White Blood Count 7.9 K/mm3 (4.4-11.0)
[2023-12-30] MEDS: Sodium Chloride 1 GM Tablet PO ×3 (06:47→21:57)
[2023-12-30 06:52] LABS: AST(SGOT) 174 U/L (15-37); Alanine Aminotransfer ALT/SGPT 107 U/L (16-61); Albumin, Serum 2.3 g/dL (3.2-5.0); Alkaline Phosphatase 433 U/L (45-117); Anion Gap 8 (5-15); BUN 2 mg/dL (7-18); BUN/Creat Ratio 5.8 RATIO (10-20); Bilirubin, Direct 0.57 mg/dL (0.00-0.30); Calcium,Total 7.7 mg/dL (8.5-10.1); Chloride 95 mmol/L (98-107); Creatinine, Serum 0.35 mg/dL (0.70-1.30); EST Glomerular Filtration Rate 276 mL/min (>60); Est Glom Filt Rate - Afr Amer 335 mL/min (>60); Estimated Creatinine Clearance 239.79 ml/min; Globulin 3.5 g/dL (2.2-4.2); Glucose 102 mg/dL (74-106); Magnesium 1.8 mg/dL (1.6-2.6); Potassium 2.9 mmol/L (3.5-5.1); Protein, Total 5.8 g/dL (6.4-8.2); Sodium Level 124 mmol/L (136-145)
[2023-12-30 06:59] LABS: Phosphorus 1.2 mg/dL (2.5-4.9)
[2023-12-30] MEDS: Ipratropium/Albuterol Sulfate 3 ML AMPUL.NEB INHALATION ×3 (07:01→18:57)
--- NOTE | 2023-12-30 08:07 | PN.HOSP_ITS ---
Reason for Visit Reason for Visit: Diagnoses Thrombocytopenia, unspecified (12/28/23) Hypo-osmolality and hyponatremia (12/28/23) Hypokalemia (12/28/23) Alcohol use, unspecified with withdrawal, unspecified (12/28/23) Pneumonia, unspecified organism (12/28/23) Subjective Subjective Patient seen, his electrolyte abnormalities versus, sodium up to 124 phosphorus is 1.2 and potassium is 2.9 Objective Data Objective Data Vital Signs: Vital Signs Temp Pulse Resp BP Pulse Ox O2 Del Method 98.3 F 89 16 114/84 H 94 Room Air 12/30/23 03:26 12/30/23 07:02 12/30/23 07:02 12/30/23 03:26 12/30/23 03:26 12/30/23 03:26 Oxygen Delivery Method Room Air Weight: 74.6 kg Body Mass Index (BMI) 23.0 Intake & Output: Intake and Output for Last 24 Hours 12/28/23 12/29/23 12/30/23 23:59 23:59 23:59 Intake Total 3505 / 3855 5241.5 / 5241.5 1250 / 1250 Output Total 999 / 1999 Balance 3505 / 3855 4241.5 / 3241.5 -750 / -750 Lab / Micro Data 12/30/23 05:40 12/30/23 05:40 Labs: Laboratory Results - last 24 hr 12/29/23 10:05: Sodium 122 L, Potassium 3.3 L, Chloride 90 L, Carbon Dioxide 20.0 L, Anion Gap 12, BUN 5 L, Creatinine 0.46 L, Estim Creat Clear Calc 176.58, Est GFR (MDRD) Af Amer 243, Est GFR (MDRD) Non-Af 201, BUN/Creatinine Ratio 10.9, Glucose 118 H, Calcium 7.5 L 12/30/23 05:40: WBC 7.9, RBC 3.25 L, Hgb 8.5 L, Hct 25.5 L, MCV 78.5 L, MCH 26.2 L, MCHC 33.3, RDW Std Deviation 53.7 H, RDW Coeff of Wen 19.2 H, Plt Count 71 L, MPV 12.4 H, Immature Gran % (Auto) 0.600, Neut % (Auto) 74.9 H, Lymph % (Auto) 17.0 L, [place] % (Auto) 5.2, Eos % (Auto) 2.0, Baso % (Auto) 0.3, Absolute Neuts (auto) 6.0, Absolute Lymphs (auto) 1.35, Nucleated RBC % 0, Sodium 124 L, P otassium 2.9 L, Chloride 95 L, Carbon Dioxide 21.0, Anion Gap 8, BUN 2 L, C reatinine 0.35 L, Estim Creat Clear Calc 239.79, Est GFR (MDRD) Af Amer 335, Est GFR (MDRD) Non-Af 276, BUN/Creatinine Ratio 5.8 L, Glucose 102, Calcium 7.7 L, P hosphorus 1.2 L, Magnesium 1.8, Total Bilirubin 1.00, Direct Bilirubin 0.57 H, A ST 174 H, ALT 107 H, Alkaline Phosphatase 433 H, Total Protein 5.8 L, Albumin 2.3 L, Globulin 3.5 Micro: Microbiology 12/28/23 19:18 Mucosa - Nasopharyngeal Coronavirus COVID-19 PCR - Final 12/28/23 19:18 Mucosa - Nasopharyngeal Respiratory Panel (PCR) - Final 12/28/23 20:25 Urine, Clean Catch Legionella Antigen - Final 12/28/23 20:25 Urine, Clean Catch Streptococcus pneumoniae Antigen (M - Final Physical Exam Narrative GENERAL: cooperative HEENT: Atraumatic; normocephalic EYES; Anicteric, Normal Conjunctiva NECK; supple, normal thyroid, RESPIRATORY: Diminished to auscultation CARDIOVASCULAR: Regular S1 S2, GI: soft, normoactive bowel sounds, : No Renal angle tenderness; EXTREMITIES: No edema, no clubbing, MUSCULOSKELETAL: no muscle wasting NEURO: Awake; no lateralizing signs. SKIN: No Rash PSYCH; Flat affect Assessment & Plan Assessment/Plan (1) Acute hypokalemia: (2) Acute hyponatremia: (3) Thrombocytopenia: (4) Alcohol withdrawal: (5) Left lower lobe pneumonia: PLAN: Plan Patient is a 58-year-old gentleman with history of chronic alcohol dependence who presented to the emergency department with shortness of breath and left- sided pleuritic chest pain. Was found to have infiltrate on his chest x-ray as well as significant electrolyte abnormalities including hypokalemia and hyponatremia 1. Pneumonia - Suspected to be secondary to streptococcal pneumonia, cultures including blood and sputum sent, viral respiratory panel and COVID assay also sent.. Patient placed on Rocephin and Zithromax and placed on oxygen titrated to keep Pulse Ox greater than 90. ? 12/29/2023; patient currently off oxygen saturating 97% on room air ? 12/30/2023 de-escalated antibiotic to p.o. 2. Acute alcohol withdrawal - Patient has been admitted for treatment with phenobarb taper in addition to adjuvant medications including gabapentin, Bentyl, hydroxyzine and clonidine as needed for alcohol withdrawal symptoms. Patient was also placed on thiamine and folic acid. Consultation placed to 180 counseling services ? 12/30/2023 patient has so far tolerated the phenobarb taper 3.. Acute on chronic hyponatremia ?Secondary to beer potomania. Patient was started on saline in addition to sodium tablet 1 g 3 times daily. Response to therapy being monitored with BMP every 4 hours ? 12/29/2023 sodium levels up to 120 will decrease the frequency of BMP checks 4. Hypokalemia ? Corrected per protocol repeat labs ordered for eval ? 12/30/2023; patient hypokalemia persist despite aggressive treatment 5. Acute alcoholic hepatitis ? AST was 373 ALT 135 alkaline phosphatase 550. Monitoring with daily LFTs 6. Hypertension - Blood pressure controlled, home medications continued with dose adjustment as needed 7. Dyslipidemia ?Patient is on statin therapy, continued at home dose 8. GERD ? Patient is on omeprazole did continue 9. History of traumatic intracranial hemorrhage ?Managed conservatively 10. Tobacco dependence - Counseled on cessation, offered nicotine patch for tobacco cravings 11. Thrombocytopenia ? Secondary to chronic alcohol abuse no signs of bleeding at this point ordered CBC with differential in a.m. for monitoring 12. DVT prophylaxis ? Chemoprophylaxis contraindicated given patient low platelet count will monitor 13. Hypophosphatemia -corrected per protocol repeat labs ordered in a.m. ? 12/30/2023 patient low potassium persist adjusted dose of phosphate replacement repeat labs ordered in a.m. 13. Hypomagnesemia -corrected for protocol repeat labs ordered in a.m. 14. Anemia ? Patient has experienced significant drop in his hemoglobin from 12.3 to 8.5. Did order iron studies as well as stool guaiac positive (if positive will obtain GI consultation). Subsequent monitoring with daily H&H ordered Charges/Coding Visit Charges Inpatient E&M: 49417 Subs Hosp L3
[2023-12-30 08:28] LABS: Iron 47 ug/dL (65-175); Iron Binding Capacity,Total 257 ug/dL (250-450); PERCENT IRON SATURATION 18.3 % (15.0-55.0)
[2023-12-30 08:32] LABS: Vitamin B12 1440 pg/mL (211-911)
[2023-12-30] MEDS: Pantoprazole Sodium 20 MG Tablet PO (08:40)
[2023-12-30] MEDS: Aspirin 81 MG TAB.CHEW PO (08:40)
[2023-12-30] MEDS: Potassium Chloride Oral Tablet 20 MEQ 40 MEQ PO ×2 (08:41→17:24)
[2023-12-30] MEDS: Magnesium Chloride 64 MG Delay Rel.Tablet 128 MG PO ×2 (08:41→21:56)
[2023-12-30] MEDS: Multivitamins,Therapeutic Tablet 1 TABLET PO (08:41)
[2023-12-30] MEDS: guaiFENesin 1,200 MG Tablet 1200 MG PO ×2 (08:41→21:55)
[2023-12-30] MEDS: Folic Acid 1 MG Tablet PO (08:41)
[2023-12-30] MEDS: Thiamine Hydrochloride 100 MG Tablet PO (08:41)
[2023-12-30] MEDS: Na Biphos/Potassium Phosphate PACKET 1 PACKET PO ×4 (09:48→21:55)
[2023-12-30] MEDS: Cefdinir 300 MG Capsule PO ×2 (09:49→21:56)
[2023-12-30] MEDS: amLODIPine 10 MG Tablet PO (09:49)
[2023-12-30] MEDS: Losartan Potassium 50 MG Tablet PO (09:49)
[2023-12-30] MEDS: Atorvastatin Calcium 40 MG Tablet PO (21:55)
[2023-12-31] VITALS (8 sets, daily range): BP systolic 106–133; BP diastolic 75–98; PULSE 80–98; RESP 14–18; TEMP 36.3–36.9; O2SAT 95–98; BMI 22.8
[2023-12-31] MEDS: Sodium Chloride 1 GM Tablet PO (05:21)
[2023-12-31] MEDS: Phenobarbital 32.4 MG Tablet PO ×4 (05:21→23:01)
[2023-12-31 06:05] LABS: Absolute Lymphocyte Count 1.33 X10^3/uL (0.83-4.51); Basophil# 0.03 X10^3/uL; Basophil% 0.4 % (0-1); Eosinophil# 0.35 X10^3/uL; Eosinophils% 4.1 % (0-5); Hemoglobin 9.5 g/dL (13.0-16.5); Lymphocyte # 1.33 X10^3/ul (0.83-4.51); Lymphocyte % 15.7 % (19-41); Mean Corp Hgb Conc 32.8 g/dL (32-36); Mean Corpuscular Hgb 26.1 pg (27.0-32.0); Mean Corpuscular Volume 79.7 fL (80-94); Mean Platelet Vol. 10.4 fl (6.2-12.0); Monocyte# 0.75 X10^3/uL; Monocyte% 8.9 % (0-10); NRBC Flagged by Analyzer 0 % (0-5); Neutrophil # 5.95 X10^3/uL (2.7-7.7); Neutrophil % 70.4 % (47-70); Platelet Count 114 K/mm3 (150-450); RBC Distribution Width CV 19.8 % (11.6-14.6); RBC Distribution Width SD 55.8 fl (35.1-43.9); Red Blood Count 3.64 M/mm3 (4.6-6.2); White Blood Count 8.5 K/mm3 (4.4-11.0)
[2023-12-31 06:27] LABS: AST(SGOT) 137 U/L (15-37); Alanine Aminotransfer ALT/SGPT 112 U/L (16-61); Albumin, Serum 2.6 g/dL (3.2-5.0); Alkaline Phosphatase 546 U/L (45-117); Anion Gap 7 (5-15); BUN 3 mg/dL (7-18); Bilirubin, Direct 0.59 mg/dL (0.00-0.30); Calcium,Total 8.3 mg/dL (8.5-10.1); Chloride 92 mmol/L (98-107); Creatinine, Serum 0.43 mg/dL (0.70-1.30); EST Glomerular Filtration Rate 215 mL/min (>60); Est Glom Filt Rate - Afr Amer 260 mL/min (>60); Estimated Creatinine Clearance 194.13 ml/min; Globulin 4.1 g/dL (2.2-4.2); Glucose 106 mg/dL (74-106); Potassium 3.5 mmol/L (3.5-5.1); Protein, Total 6.7 g/dL (6.4-8.2); Sodium Level 120 mmol/L (136-145)
[2023-12-31] MEDS: Ipratropium/Albuterol Sulfate 3 ML AMPUL.NEB INHALATION ×3 (07:15→19:44)
--- NOTE | 2023-12-31 07:37 | PN.HOSP_ITS ---
Reason for Visit Reason for Visit: Diagnoses Thrombocytopenia, unspecified (12/28/23) Hypo-osmolality and hyponatremia (12/28/23) Hypokalemia (12/28/23) Alcohol use, unspecified with withdrawal, unspecified (12/28/23) Pneumonia, unspecified organism (12/28/23) Subjective Subjective Patient sodium down to 120. Did increase patient sodium tablets and also added fluid restriction Objective Data Objective Data Vital Signs: Vital Signs Temp Pulse Resp BP Pulse Ox O2 Del Method 98.3 F 85 18 126/91 H 96 Room Air 12/31/23 04:00 12/31/23 07:16 12/31/23 07:16 12/31/23 04:00 12/31/23 04:00 12/31/23 04:00 Oxygen Delivery Method Room Air Weight: 74.2 kg Body Mass Index (BMI) 22.8 Intake & Output: Intake and Output for Last 24 Hours 12/29/23 12/30/23 12/31/23 23:59 23:59 23:59 Intake Total 5241.5 / 5241.5 2089 / 2089 Output Total 999 / 1999 4100 / 4100 Balance 4241.5 / 3241.5 -2009 Lab / Micro Data 12/31/23 05:33 12/31/23 05:33 Labs: Laboratory Results - last 24 hr 12/30/23 05:40: Iron 47 L, TIBC 257, Iron Saturation 18.3, Vitamin B12 1440 H 12/31/23 05:33: WBC 8.5, RBC 3.64 L, Hgb 9.5 L, Hct 29.0 L, MCV 79.7 L, MCH 26.1 L, MCHC 32.8, RDW Std Deviation 55.8 H, RDW Coeff of Wen 19.8 H, Plt Count 114 L , MPV 10.4, Immature Gran % (Auto) 0.500, Neut % (Auto) 70.4 H, Lymph % (Auto) 15.7 L, Gall[place] % (Auto) 8.9, Eos % (Auto) 4.1, Baso % (Auto) 0.4, Absolute Neuts (auto) 6.0, Absolute Lymphs (auto) 1.33, Nucleated RBC % 0, Sodium 120 L, Potassium 3.5, Chloride 92 L, Carbon Dioxide 21.0, Anion Gap 7, BUN 3 L, C reatinine 0.43 L, Estim Creat Clear Calc 194.13, Est GFR (MDRD) Af Amer 260, Est GFR (MDRD) Non-Af 215, BUN/Creatinine Ratio 7.0 L, Glucose 106, Calcium 8.3 L, T otal Bilirubin 1.10 H, Direct Bilirubin 0.59 H, AST 137 H, ALT 112 H, Alkaline Phosphatase 546 H, Total Protein 6.7, Albumin 2.6 L, Globulin 4.1 Micro: Microbiology 12/31/23 05:00 Stool Stool Occult Blood (AMANDA) - Final 12/28/23 12:45 Blood Culture (Wb) - Anticubital Right Blood Culture - Preliminary No growth in 48 hours. 12/28/23 19:18 Mucosa - Nasopharyngeal Coronavirus COVID-19 PCR - Final 12/28/23 19:18 Mucosa - Nasopharyngeal Respiratory Panel (PCR) - Final 12/28/23 20:25 Urine, Clean Catch Legionella Antigen - Final 12/28/23 20:25 Urine, Clean Catch Streptococcus pneumoniae Antigen (M - Final Physical Exam Narrative GENERAL: cooperative HEENT: Atraumatic; normocephalic EYES; Anicteric, Normal Conjunctiva NECK; supple, normal thyroid, RESPIRATORY: Diminished to auscultation CARDIOVASCULAR: Regular S1 S2, GI: soft, normoactive bowel sounds, : No Renal angle tenderness; EXTREMITIES: No edema, no clubbing, MUSCULOSKELETAL: no muscle wasting NEURO: Awake; no lateralizing signs. SKIN: No Rash PSYCH; Flat affect Assessment & Plan Assessment/Plan (1) Acute hypokalemia: (2) Acute hyponatremia: (3) Thrombocytopenia: (4) Alcohol withdrawal: (5) Left lower lobe pneumonia: PLAN: Plan Patient is a 58-year-old gentleman with history of chronic alcohol dependence who presented to the emergency department with shortness of breath and left- sided pleuritic chest pain. Was found to have infiltrate on his chest x-ray as well as significant electrolyte abnormalities including hypokalemia and hyponatremia 1. Pneumonia - Suspected to be secondary to streptococcal pneumonia, cultures including blood and sputum sent, viral respiratory panel and COVID assay also sent.. Patient placed on Rocephin and Zithromax and placed on oxygen titrated to keep Pulse Ox greater than 90. ? 12/29/2023; patient currently off oxygen saturating 97% on room air ? 12/30/2023 de-escalated antibiotic to p.o. 2. Acute alcohol withdrawal - Patient has been admitted for treatment with phenobarb taper in addition to adjuvant medications including gabapentin, Bentyl, hydroxyzine and clonidine as needed for alcohol withdrawal symptoms. Patient was also placed on thiamine and folic acid. Consultation placed to 180 counseling services ? 12/30/2023 patient has so far tolerated the phenobarb taper 3.. Acute on chronic hyponatremia ?Secondary to beer potomania. Patient was started on saline in addition to sodium tablet 1 g 3 times daily. Response to therapy being monitored with BMP every 4 hours ? 12/29/2023 sodium levels up to 120 will decrease the frequency of BMP checks ? 12/31/2023; sodium levels down to 120 with increase patient's sodium tablets to 2 g 3 times daily and instituted 1000 cc per 24-hour fluid restriction 4. Hypokalemia ? Corrected per protocol repeat labs ordered for eval ? 12/30/2023; patient hypokalemia persist despite aggressive treatment 5. Acute alcoholic hepatitis ? AST was 373 ALT 135 alkaline phosphatase 550. Monitoring with daily LFTs 6. Hypertension - Blood pressure controlled, home medications continued with dose adjustment as needed 7. Dyslipidemia ?Patient is on statin therapy, continued at home dose 8. GERD ? Patient is on omeprazole did continue 9. History of traumatic intracranial hemorrhage ?Managed conservatively 10. Tobacco dependence - Counseled on cessation, offered nicotine patch for tobacco cravings 11. Thrombocytopenia ? Secondary to chronic alcohol abuse no signs of bleeding at this point ordered CBC with differential in a.m. for monitoring 12. DVT prophylaxis ? Chemoprophylaxis contraindicated given patient low platelet count will monitor 13. Hypophosphatemia -corrected per protocol repeat labs ordered in a.m. ? 12/30/2023 patient low potassium persist adjusted dose of phosphate replacement repeat labs ordered in a.m. 13. Hypomagnesemia -corrected for protocol repeat labs ordered in a.m. 14. Anemia ? Patient has experienced significant drop in his hemoglobin from 12.3 to 8.5. Did order iron studies as well as stool guaiac positive (if positive will obtain GI consultation). Subsequent monitoring with daily H&H ordered 15. Physical deconditioning ? Requested for PT OT eval and social service coordinator to assist with discharge planning Time spent in the patient's overall evaluation,decision-making process, review of diagnostic data, adjustment of management, discussion with other providers, nursing nursing and ancillary staff involved in patient's care documentation, 36 Minutes Charges/Coding Visit Charges Inpatient E&M: 56658 Subs Hosp L2
[2023-12-31] MEDS: Aspirin 81 MG TAB.CHEW PO (07:50)
[2023-12-31] MEDS: Potassium Chloride Oral Tablet 20 MEQ 40 MEQ PO ×2 (07:51→17:16)
[2023-12-31] MEDS: Folic Acid 1 MG Tablet PO (07:51)
[2023-12-31] MEDS: Multivitamins,Therapeutic Tablet 1 TABLET PO (08:32)
[2023-12-31] MEDS: Thiamine Hydrochloride 100 MG Tablet PO (10:12)
[2023-12-31] MEDS: guaiFENesin 1,200 MG Tablet 1200 MG PO ×2 (10:12→23:02)
[2023-12-31] MEDS: Magnesium Chloride 64 MG Delay Rel.Tablet 128 MG PO ×2 (10:12→23:03)
[2023-12-31] MEDS: Na Biphos/Potassium Phosphate PACKET 1 PACKET PO ×4 (10:12→23:01)
[2023-12-31] MEDS: Losartan Potassium 50 MG Tablet PO (10:12)
[2023-12-31] MEDS: Pantoprazole Sodium 20 MG Tablet PO (10:13)
[2023-12-31] MEDS: amLODIPine 10 MG Tablet PO (10:13)
[2023-12-31] MEDS: Cefdinir 300 MG Capsule PO ×2 (10:13→23:01)
[2023-12-31] MEDS: Loperamide 2 MG Capsule PO (12:45)
[2023-12-31] MEDS: Sodium Chloride 1 GM Tablet 2 GM PO ×2 (13:14→23:02)
[2023-12-31] MEDS: Atorvastatin Calcium 40 MG Tablet PO (23:02)
[2023-12-31] MEDS: traZODone 50 MG Tablet PO (23:14)
[2024-01-01] MEDS: Ipratropium/Albuterol Sulfate 3 ML AMPUL.NEB INHALATION (02:49)
[2024-01-01 02:50] VITALS: PULSE 96; RESP 20
[2024-01-01 03:32] VITALS: BP 119/88; PULSE 95; RESP 18; TEMP 37.2; O2SAT 96
[2024-01-01] MEDS: Sodium Chloride 1 GM Tablet 2 GM PO (05:07)
[2024-01-01] MEDS: Phenobarbital 32.4 MG Tablet PO (05:07)
[2024-01-01 05:18] VITALS: BMI 22.8
[2024-01-01 06:26] LABS: Absolute Neutrophil Count 5.3 X10^3/uL (2.0-7.7); Basophil# 0.04 X10^3/uL; Basophil% 0.5 % (0-1); Eosinophil# 0.23 X10^3/uL; Eosinophils% 2.8 % (0-5); Hematocrit 27.2 % (40-54); Lymphocyte % 15.9 % (19-41); Mean Corp Hgb Conc 33.1 g/dL (32-36); Mean Corpuscular Hgb 26.9 pg (27.0-32.0); Mean Corpuscular Volume 81.2 fL (80-94); Mean Platelet Vol. 11.6 fl (6.2-12.0); Monocyte# 1.22 X10^3/uL; Monocyte% 14.9 % (0-10); NRBC Flagged by Analyzer 0 % (0-5); Neutrophil # 5.31 X10^3/uL (2.7-7.7); POSITIVE MORPHOLOGY YES; Platelet Count 184 K/mm3 (150-450); RBC Distribution Width CV 20.5 % (11.6-14.6); RBC Distribution Width SD 56.2 fl (35.1-43.9); Red Blood Count 3.35 M/mm3 (4.6-6.2); White Blood Count 8.2 K/mm3 (4.4-11.0)
[2024-01-01 06:27] LABS: Differential Indicated SCAN CRITERIA MET
[2024-01-01 06:52] LABS: Anion Gap 8 (5-15); BUN 3 mg/dL (7-18); BUN/Creat Ratio 8.4 RATIO (10-20); Calcium,Total 8.3 mg/dL (8.5-10.1); Chloride 96 mmol/L (98-107); Creatinine, Serum 0.36 mg/dL (0.70-1.30); EST Glomerular Filtration Rate 267 mL/min (>60); Est Glom Filt Rate - Afr Amer 323 mL/min (>60); Estimated Creatinine Clearance 231.25 ml/min; Glucose 105 mg/dL (74-106); Potassium 3.8 mmol/L (3.5-5.1); Sodium Level 125 mmol/L (136-145)
[2024-01-01 07:35] LABS: Anisocytosis 1+
--- NOTE | 2024-01-01 07:58 | PN.HOSP_ITS ---
Reason for Visit Reason for Visit: Diagnoses Thrombocytopenia, unspecified (12/28/23) Hypo-osmolality and hyponatremia (12/28/23) Hypokalemia (12/28/23) Alcohol use, unspecified with withdrawal, unspecified (12/28/23) Pneumonia, unspecified organism (12/28/23) Subjective Subjective Patient sodium up to 125 patient will be assessed for discharge Objective Data Objective Data Vital Signs: Vital Signs Temp Pulse Resp BP Pulse Ox O2 Del Method 98.9 F 95 18 119/88 H 96 Room Air 01/01/24 03:32 01/01/24 03:32 01/01/24 03:32 01/01/24 03:32 01/01/24 03:32 01/01/24 03:32 Oxygen Delivery Method Room Air Weight: 74 kg Body Mass Index (BMI) 22.8 Intake & Output: Intake and Output for Last 24 Hours 12/30/23 12/31/23 01/01/24 23:59 23:59 23:59 Intake Total 2090 / 2090 470 / 470 Output Total 4100 / 4100 Balance -2009 470 / 470 Lab / Micro Data 01/01/24 05:29 01/01/24 05:29 Labs: Laboratory Results - last 24 hr 01/01/24 05:29: WBC 8.2, RBC 3.35 L, Hgb 9.0 L, Hct 27.2 L, MCV 81.2, MCH 26.9 L , MCHC 33.1, RDW Std Deviation 56.2 H, RDW Coeff of Wen 20.5 H, Plt Count 184, MPV 11.6, Immature Gran % (Auto) 0.900, Neut % (Auto) 65.0, Lymph % (Auto) 15.9 L, [place] % (Auto) 14.9 H, Eos % (Auto) 2.8, Baso % (Auto) 0.5, Absolute Neuts (auto) 5.3, Absolute Lymphs (auto) 1.30, Nucleated RBC % 0, Anisocytosis 1+, S odium 125 L, Potassium 3.8, Chloride 96 L, Carbon Dioxide 21.0, Anion Gap 8, BUN 3 L, Creatinine 0.36 L, Estim Creat Clear Calc 231.25, Est GFR (MDRD) Af Amer 323, Est GFR (MDRD) Non-Af 267, BUN/Creatinine Ratio 8.4 L, Glucose 105, Calcium 8.3 L Micro: Microbiology 12/31/23 05:00 Stool Stool Occult Blood (AMANDA) - Final 12/28/23 12:45 Blood Culture (Wb) - Anticubital Right Blood Culture - Preliminary No growth in 48 hours. 12/28/23 19:18 Mucosa - Nasopharyngeal Coronavirus COVID-19 PCR - Final 12/28/23 19:18 Mucosa - Nasopharyngeal Respiratory Panel (PCR) - Final 12/28/23 20:25 Urine, Clean Catch Legionella Antigen - Final 12/28/23 20:25 Urine, Clean Catch Streptococcus pneumoniae Antigen (M - Final Physical Exam Narrative GENERAL: cooperative HEENT: Atraumatic; normocephalic EYES; Anicteric, Normal Conjunctiva NECK; supple, normal thyroid, RESPIRATORY: Diminished to auscultation CARDIOVASCULAR: Regular S1 S2, GI: soft, normoactive bowel sounds, : No Renal angle tenderness; EXTREMITIES: No edema, no clubbing, MUSCULOSKELETAL: no muscle wasting NEURO: Awake; no lateralizing signs. SKIN: No Rash PSYCH; Flat affect Assessment & Plan Assessment/Plan (1) Acute hypokalemia: (2) Acute hyponatremia: (3) Thrombocytopenia: (4) Alcohol withdrawal: (5) Left lower lobe pneumonia: PLAN: Plan Patient is a 58-year-old gentleman with history of chronic alcohol dependence who presented to the emergency department with shortness of breath and left- sided pleuritic chest pain. Was found to have infiltrate on his chest x-ray as well as significant electrolyte abnormalities including hypokalemia and hyponatremia 1. Pneumonia - Suspected to be secondary to streptococcal pneumonia, cultures including blood and sputum sent, viral respiratory panel and COVID assay also sent.. Patient placed on Rocephin and Zithromax and placed on oxygen titrated to keep Pulse Ox greater than 90. ? 12/29/2023; patient currently off oxygen saturating 97% on room air ? 12/30/2023 de-escalated antibiotic to p.o. 1 01/01/2024 patient to be discharged on p.o. antibiotic 2. Acute alcohol withdrawal - Patient has been admitted for treatment with phenobarb taper in addition to adjuvant medications including gabapentin, Bentyl, hydroxyzine and clonidine as needed for alcohol withdrawal symptoms. Patient was also placed on thiamine and folic acid. Consultation placed to 180 counseling services ? 12/30/2023 patient has so far tolerated the phenobarb taper 3.. Acute on chronic hyponatremia ?Secondary to beer potomania. Patient was started on saline in addition to sodium tablet 1 g 3 times daily. Response to therapy being monitored with BMP every 4 hours ? 12/29/2023 sodium levels up to 120 will decrease the frequency of BMP checks ? 12/31/2023; sodium levels down to 120 with increase patient's sodium tablets to 2 g 3 times daily and instituted 1000 cc per 24-hour fluid restriction ? 01/01/2024 sodium up to 125 patient be assessed for discharge 4. Hypokalemia ? Corrected per protocol repeat labs ordered for eval ? 12/30/2023; patient hypokalemia persist despite aggressive treatment 5. Acute alcoholic hepatitis ? AST was 373 ALT 135 alkaline phosphatase 550. Monitoring with daily LFTs 6. Hypertension - Blood pressure controlled, home medications continued with dose adjustment as needed 7. Dyslipidemia ?Patient is on statin therapy, continued at home dose 8. GERD ? Patient is on omeprazole did continue 9. History of traumatic intracranial hemorrhage ?Managed conservatively 10. Tobacco dependence - Counseled on cessation, offered nicotine patch for tobacco cravings 11. Thrombocytopenia ? Secondary to chronic alcohol abuse no signs of bleeding at this point ordered CBC with differential in a.m. for monitoring 12. DVT prophylaxis ? Chemoprophylaxis contraindicated given patient low platelet count will monitor 13. Hypophosphatemia -corrected per protocol repeat labs ordered in a.m. ? 12/30/2023 patient low potassium persist adjusted dose of phosphate replacement repeat labs ordered in a.m. 13. Hypomagnesemia -corrected for protocol repeat labs ordered in a.m. 14. Anemia ? Patient has experienced significant drop in his hemoglobin from 12.3 to 8.5. Did order iron studies as well as stool guaiac positive (if positive will obtain GI consultation). Subsequent monitoring with daily H&H ordered 15. Physical deconditioning ? Requested for PT OT eval and social services manager to assist with discharge planning Time spent in the patient's overall evaluation,decision-making process, review of diagnostic data, adjustment of management, discussion with other providers, nursing nursing and ancillary staff involved in patient's care documentation, 36 Minutes
[2024-01-01 08:03] VITALS: O2SAT 96
[2024-01-01] MEDS: Folic Acid 1 MG Tablet PO (08:42)
[2024-01-01] MEDS: Potassium Chloride Oral Tablet 20 MEQ 40 MEQ PO (08:43)
[2024-01-01] MEDS: Multivitamins,Therapeutic Tablet 1 TABLET PO (08:43)
[2024-01-01] MEDS: Aspirin 81 MG TAB.CHEW PO (08:43)
[2024-01-01] MEDS: Thiamine Hydrochloride 100 MG Tablet PO (08:43)
[2024-01-01] MEDS: Na Biphos/Potassium Phosphate PACKET 1 PACKET PO (08:44)
[2024-01-01] MEDS: amLODIPine 10 MG Tablet PO (08:45)
[2024-01-01] MEDS: guaiFENesin 1,200 MG Tablet 1200 MG PO (08:45)
[2024-01-01] MEDS: Cefdinir 300 MG Capsule PO (08:46)
[2024-01-01] MEDS: Pantoprazole Sodium 20 MG Tablet PO (08:46)
[2024-01-01] MEDS: Magnesium Chloride 64 MG Delay Rel.Tablet 128 MG PO (08:46)
[2024-01-01] MEDS: Losartan Potassium 50 MG Tablet PO (08:47)
--- NOTE | 2024-01-01 09:19 | DS.PCM_ITS ---
Providers Date of Admission: 12/28/23 Date of Discharge: 01/01/24 Primary Care Physician: Dr. Nichole Grove MD Reason For Visit: ALCOHOL WITHDRAWAL, HYPONATREMIA, PNEUMONIA Diagnosis Discharge Diagnosis (1) Acute hypokalemia: Status: Acute Code(s): E87.6 - Hypokalemia (2) Acute hyponatremia: Status: Acute Code(s): E87.1 - Hypo-osmolality and hyponatremia (3) Thrombocytopenia: Status: Acute Code(s): D69.6 - Thrombocytopenia, unspecified (4) Alcohol withdrawal: Status: Acute Code(s): F10.939 - Alcohol use, unspecified with withdrawal, unspecified (5) Left lower lobe pneumonia: Status: Acute Code(s): J18.9 - Pneumonia, unspecified organism Plan Patient is a 58-year-old gentleman with history of chronic alcohol dependence who presented to the emergency department with shortness of breath and left- sided pleuritic chest pain. Was found to have infiltrate on his chest x-ray as well as significant electrolyte abnormalities including hypokalemia and hyponatremia 1. Pneumonia - Suspected to be secondary to streptococcal pneumonia, cultures including blood and sputum sent, viral respiratory panel and COVID assay also sent.. Patient placed on Rocephin and Zithromax and placed on oxygen titrated to keep Pulse Ox greater than 90. ? 12/29/2023; patient currently off oxygen saturating 97% on room air ? 12/30/2023 de-escalated antibiotic to p.o. 1 01/01/2024 patient to be discharged on p.o. antibiotic 2. Acute alcohol withdrawal - Patient has been admitted for treatment with phenobarb taper in addition to adjuvant medications including gabapentin, Bentyl, hydroxyzine and clonidine as needed for alcohol withdrawal symptoms. Patient was also placed on thiamine and folic acid. Consultation placed to 180 counseling services ? 12/30/2023 patient has so far tolerated the phenobarb taper 3.. Acute on chronic hyponatremia ?Secondary to beer potomania. Patient was started on saline in addition to sodium tablet 1 g 3 times daily. Response to therapy being monitored with BMP every 4 hours ? 12/29/2023 sodium levels up to 120 will decrease the frequency of BMP checks ? 12/31/2023; sodium levels down to 120 with increase patient's sodium tablets to 2 g 3 times daily and instituted 1000 cc per 24-hour fluid restriction ? 01/01/2024 sodium up to 125 patient be assessed for discharge 4. Hypokalemia ? Corrected per protocol repeat labs ordered for eval ? 12/30/2023; patient hypokalemia persist despite aggressive treatment 5. Acute alcoholic hepatitis ? AST was 373 ALT 135 alkaline phosphatase 550. Monitoring with daily LFTs 6. Hypertension - Blood pressure controlled, home medications continued with dose adjustment as needed 7. Dyslipidemia ?Patient is on statin therapy, continued at home dose 8. GERD ? Patient is on omeprazole did continue 9. History of traumatic intracranial hemorrhage ?Managed conservatively 10. Tobacco dependence - Counseled on cessation, offered nicotine patch for tobacco cravings 11. Thrombocytopenia ? Secondary to chronic alcohol abuse no signs of bleeding at this point ordered CBC with differential in a.m. for monitoring 12. DVT prophylaxis ? Chemoprophylaxis contraindicated given patient low platelet count will monitor 13. Hypophosphatemia -corrected per protocol repeat labs ordered in a.m. ? 12/30/2023 patient low potassium persist adjusted dose of phosphate replacement repeat labs ordered in a.m. 13. Hypomagnesemia -corrected for protocol repeat labs ordered in a.m. 14. Anemia ? Patient has experienced significant drop in his hemoglobin from 12.3 to 8.5. Did order iron studies as well as stool guaiac positive (if positive will obtain GI consultation). Subsequent monitoring with daily H&H ordered 15. Physical deconditioning ? Requested for PT OT eval and social organization professor to assist with discharge planning Time spent in the patient's overall evaluation,decision-making process, review of diagnostic data, adjustment of management, discussion with other providers, nursing nursing and ancillary staff involved in patient's care documentation, 36 Minutes Medications at Discharge Home Medications aspirin 81 mg chewable tablet 81 mg PO BREAKFAST HEART HEALTH #90 tabs 05/29/23 multivitamin (Daily Multi-Vitamin tablet) 1 tab PO DAILY supplement #30 tabs 06/28/23 omeprazole 20 mg capsule,delayed release 20 mg PO DAILY ACID REFLUX 09/04/23 amlodipine 10 mg tablet 10 mg PO DAILY BLOOD PRESSURE #90 tabs 09/24/23 trazodone 50 mg tablet 50 mg PO QHS PRN sleep #30 tabs 10/17/23 losartan 50 mg tablet 50 mg PO DAILY blood pressure #90 tabs 10/31/23 atorvastatin 40 mg tablet 40 mg PO DAILY CHOLESTEROL #90 tabs 11/21/23 cefdinir 300 mg capsule 300 mg PO Q12 #10 caps 01/01/24 folic acid 1 mg tablet 1 mg PO DAILYCM #30 tabs 01/01/24 magnesium chloride 64 mg (magnesium chloride) tablet,delayed release (Mag 64) 128 mg (2 x 64 mg) PO BID #120 tabs 01/01/24 potassium chloride 20 mEq tablet,extended release(part/cryst) 40 meq (2 x 20 mEq) PO DAILY #30 tabs 01/01/24 potassium, sodium phosphates 280 mg-160 mg-250 mg oral powder packet 1 packet PO TID 30 days #100 ea 01/01/24 sodium chloride 1,000 mg soluble tablet 2,000 mg (2 x 1,000 mg) PO TID 30 days #180 tabs 01/01/24 thiamine HCl (vitamin B1) 100 mg tablet 100 mg PO DAILYCM 30 days #30 tabs 01/01/24 Physical Exam Narrative GENERAL: cooperative HEENT: Atraumatic; normocephalic EYES; Anicteric, Normal Conjunctiva NECK; supple, normal thyroid, RESPIRATORY: Diminished to auscultation CARDIOVASCULAR: Regular S1 S2, GI: soft, normoactive bowel sounds, : No Renal angle tenderness; EXTREMITIES: No edema, no clubbing, MUSCULOSKELETAL: no muscle wasting NEURO: Awake; no lateralizing signs. SKIN: No Rash PSYCH; Flat affect Weight / BMI Weight Weight: 74 kg Body Mass Index (BMI) 22.8 ABG / Lab / Microbiology Data 01/01/24 05:29 01/01/24 05:29 Laboratory: Laboratory Results - last 24 hr 01/01/24 05:29: WBC 8.2, RBC 3.35 L, Hgb 9.0 L, Hct 27.2 L, MCV 81.2, MCH 26.9 L , MCHC 33.1, RDW Std Deviation 56.2 H, RDW Coeff of Wen 20.5 H, Plt Count 184, MPV 11.6, Immature Gran % (Auto) 0.900, Neut % (Auto) 65.0, Lymph % (Auto) 15.9 L, [place] % (Auto) 14.9 H, Eos % (Auto) 2.8, Baso % (Auto) 0.5, Absolute Neuts (auto) 5.3, Absolute Lymphs (auto) 1.30, Nucleated RBC % 0, Anisocytosis 1+, S odium 125 L, Potassium 3.8, Chloride 96 L, Carbon Dioxide 21.0, Anion Gap 8, BUN 3 L, Creatinine 0.36 L, Estim Creat Clear Calc 231.25, Est GFR (MDRD) Af Amer 323, Est GFR (MDRD) Non-Af 267, BUN/Creatinine Ratio 8.4 L, Glucose 105, Calcium 8.3 L Microbiology: Microbiology 12/31/23 05:00 Stool Stool Occult Blood (AMANDA) - Final 12/28/23 12:45 Blood Culture (Wb) - Anticubital Right Blood Culture - Preliminary No growth in 48 hours. 12/28/23 19:18 Mucosa - Nasopharyngeal Coronavirus COVID-19 PCR - Final 12/28/23 19:18 Mucosa - Nasopharyngeal Respiratory Panel (PCR) - Final 12/28/23 20:25 Urine, Clean Catch Legionella Antigen - Final 12/28/23 20:25 Urine, Clean Catch Streptococcus pneumoniae Antigen (M - Final D/C Instructions Discharge Diet: No restrictions Discharge Activity: Return to Normal Activity Call your doctor if you observe: Fever of 101 or Higher, Shortness of breath, Fainting spells and Chest pain Meaningful Use Info Meaningful Use Meaningful Use Diagnoses (Choose all that apply): None applicable Ischemic Stroke Statin Dosing Therapy Reference: STATIN DOSE THERAPY REFERENCE: * Patients > 75 years receive moderate or high dose statin therapy. * Patients 75 years or YOUNGER should receive HIGH intensity statin dose unless contraindicated. You will be required to document reason for non-treatment if statin daily dose does not meet guidelines. HIGH DOSE STATIN THERAPY DAILY Atorvastatin > than or = to 40 mg Rosuvastatin > than or = to 20 mg Amlodipine + Atorvastatin > than or = to 2.5/40 mg Ezetimibe + Simvastatin 10/80 mg Simvastatin 80mg Discharge Plan Admission Admit Date/Time: 12/28/23 12:44 Attending Provider: Dannie Walton Primary Care Provider: Nichole Grove Discharge Orders/Prescriptions Prescriptions: New thiamine HCl (vitamin B1) 100 mg Tablet 100 mg PO DAILYCM 30 Days Qty: 30 0RF potassium chloride 20 mEq Tablet,Er Particles/Crystals 40 meq PO DAILY Qty: 30 0RF sodium chloride 1,000 mg Tablet,Soluble 2,000 mg PO TID 30 Days Qty: 180 0RF potassium, sodium phosphates 280-160-250 mg Powder In Packet 1 packet PO TID 30 Days Qty: 100 0RF magnesium chloride [Mag 64] 64 mg Tablet,Delayed Release (Dr/Ec) 128 mg PO BID Qty: 120 0RF folic acid 1 mg Tablet 1 mg PO DAILYCM Qty: 30 0RF cefdinir 300 mg Capsule 300 mg PO Q12 Qty: 10 0RF Continued multivitamin [Daily Multi-Vitamin] Tablet 1 tab PO DAILY Qty: 30 0RF omeprazole 20 mg capsule,delayed release(DR/EC) 20 mg PO DAILY aspirin 81 mg tablet,chewable 81 mg PO BREAKFAST Qty: 90 3RF amlodipine 10 mg tablet 10 mg PO DAILY Qty: 90 1RF trazodone 50 mg tablet 50 mg PO QHS PRN (Reason: sleep) Qty: 30 2RF losartan 50 mg tablet 50 mg PO DAILY Qty: 90 3RF atorvastatin 40 mg tablet 40 mg PO DAILY Qty: 90 3RF Referrals / Follow Up: Nichole Grove MD [Primary Care Provider] - Within 1 Week Disposition Disposition (needs filled in before D/C Order can be placed): Home, Self Care Charges/Coding Visit Charges Inpatient E&M: 46453 Disch Hosp >30min
[2024-01-01 10:03] VITALS: BP 114/90; PULSE 116; RESP 18; TEMP 36.9; O2SAT 100
[2024-01-01 10:05] VITALS: BP 114/90; PULSE 115; RESP 18; TEMP 36.9; O2SAT 100
--- NOTE | 2024-01-01 11:50 | CASEMGMT ---
Patient has order for discharge. RN CM in to discuss needs at discharge, life partner at bedside. Patient states he will follow-up with [facility] outpatient. Patient denied further needs or help at discharge. Patient had no further questions or concerns.
[2024-01-01 12:00] VITALS: BP 140/90; PULSE 115; RESP 18; TEMP 36.9; O2SAT 100
== END 2024-01-01 12:11 | disposition home or self-care (01) | DRG 139 ==
LOC: ED 12:47 → PCU 13:14
PROVIDERS: Admitting Provider Internal Medicine; Emergency Provider Emergency Medicine; PCP Internal Medicine; Visit Provider Internal Medicine
DX: J15.4 Pneumonia due to other streptococci (principal); D69.6 Thrombocytopenia, unspecified; Z66 Do not resuscitate; K70.10 Alcoholic hepatitis without ascites; J44.0 Chronic obstructive pulmonary disease with (acute) lower respiratory infection; I10 Essential (primary) hypertension; D64.9 Anemia, unspecified; F10.239 Alcohol dependence with withdrawal, unspecified; E87.1 Hypo-osmolality and hyponatremia; E87.6 Hypokalemia; E78.5 Hyperlipidemia, unspecified; F17.210 Nicotine dependence, cigarettes, uncomplicated; K21.9 Gastro-esophageal reflux disease without esophagitis; I25.2 Old myocardial infarction; E83.42 Hypomagnesemia; Z79.82 Long term (current) use of aspirin; Z86.73 Personal history of transient ischemic attack (TIA), and cerebral infarction without residual deficits; Y90.9 Presence of alcohol in blood, level not specified
CPT/HCPCS: 36415; 71046; 80048; 80053; 80076; 80307; 81001; 82077; 82274; 82607; 83540; 83550; 83605; 83690; 83735; 84100; 84484; 85025; 87040; 87449; 87633; 87635; 93005; 94640; 94668; 99285; 99406; J7030; J7050; A4216; J0696

== ENCOUNTER → 2024-01-20 | Outpatient (CLI) | payer MEDICAID, SELFPAY ==
--- NOTE | 2024-01-20 08:00 | PET_ITS ---
EXAMINATION: FDG PET-CT INDICATIONS: A 58-year-old male with history of pulmonary nodularity. COMPARISON EXAMINATION: CT of the chest dated 12/05/23 INDEX LESION SIZE SUV INTERPRETATION Left lower lung field 13.4-mm 3.0 Fulfills quantitative criteria for viable neoplasm TECHNIQUE: Following the intravenous administration of 13.17 mCi of F-18 deoxyglucose via the right hand, multiplanar image acquisitions of the neck, chest, abdomen and pelvis to level of mid thigh, obtained at one hour post radiopharmaceutical administration contemporaneously interpreted with the current CT of the neck, chest, abdomen and pelvis, to level of mid thigh, dated 01/20/[address] of the chest dated 12/05/23 reveals: BLOOD GLUCOSE LEVEL:?? 112 mg/dl?HEIGHT:?71 inches?WEIGHT: 161 lbs. FINDINGS: HEAD/NECK: There is no evidence of abnormal increased glucose metabolism in the pharyngeal mucosal space, parapharyngeal space, bilateral-lateral and anterior neck, hypopharynx and distribution of the laryngeal structures. The visualized portion of the cerebral cortical-subcortical structures demonstrate symmetric and preserved glucose metabolism. CHEST: Increased FDG concentration is noted in the left lower posterior lung zone, left lower lobe, generating a calculated maximal standard uptake value of 3.0. The maximal axial diameter of the corresponding parenchymal density is 13.4-mm. Pertinent chest CT findings are as follows. Bilateral axillary soft tissue densities are ametabolic. Both calcified and non-calcified mediastinal and thoracic perihilar soft tissue reveals no evidence of increased tracer uptake. There are no additional parenchymal densities-nodules defined in the right and left hemithorax with quantitatively significant increased FDG uptake. Calcified densities noted in the bilateral upper lung zones are non-glucose avid. There is atherosclerotic calcification defined in the thoracic aorta without evidence of dilatation-aneurysm formation. Coronary arterial calcification is observed. Prominent tracer uptake is noted in the subcarinal mediastinum to the right of the midline likely representing visualization of the right atrial myocardial appendage. ABDOMEN/PELVIS: Normal physiologic distribution of the radiopharmaceutical is apparent in the hepatic (2.8) and splenic parenchyma, both renal units, bladder and visualized intestinal tract. Diffuse radiopharmaceutical concentration is noted in all four quadrants of the abdomen and pelvis. Pertinent abdomen and pelvis CT findings are as follows. There is atherosclerotic calcification defined in the abdominal aorta without evidence of dilatation-aneurysm formation. Abdominal and pelvic arterial calcification is observed. Right and left inguinal soft tissue densities with fatty hilus expression are non-glucose avid. SKELETAL: Degenerative changes are noted in the cervical, thoracic and lumbar spine without evidence of increased radiopharmaceutical concentration. PET/PET/CT Tumor Base -Thigh Init IMPRESSION: 1. 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 2. Increased radiopharmaceutical concentration defined in the left lower hemithorax pulmonary parenchyma, left lower lobe, fulfills quantitative criteria for malignant transformation. Histopathologic analysis is recommended. 3. No other quantitatively significant hypermetabolic abnormalities are noted. Electronic Signature Juan Antonio Pak D.O. Accurate Quantification of SUVs for this report are calculated using the exclusive [employer]. (U.S. Patent No. [phone] [place] patent [phone]). Standardization and correction of the FDG SUV metric via [employer] technology allow for vendor non-specific objective quantitative examination comparison and optimization of the sensitivity and specificity of the FDG PET-CT examination. [email or web address]/[email or web address] Electronically Signed: Juan Antonio Pak DO at 23:43 EST ,
== END | disposition home or self-care (01) ==
LOC: ONC 07:54
PROVIDERS: PCP Internal Medicine; Referring Provider Internal Medicine; Visit Provider Internal Medicine
DX: R91.1 Solitary pulmonary nodule (principal); Z87.891 Personal history of nicotine dependence; J18.9 Pneumonia, unspecified organism
CPT/HCPCS: 78815; A9552

== ENCOUNTER → 2024-02-02 | Outpatient (CLI) | payer MEDICAID, SELFPAY ==
[2024-02-02 15:15] LABS: Absolute Lymphocyte Count 2.95 X10^3/uL (0.83-4.51); Absolute Neutrophil Count 7.1 X10^3/uL (2.0-7.7); Basophil# 0.06 X10^3/uL; Basophil% 0.5 % (0-1); Eosinophil# 0.54 X10^3/uL; Eosinophils% 4.8 % (0-5); Hematocrit 35.4 % (40-54); Hemoglobin 10.8 g/dL (13.0-16.5); Lymphocyte # 2.95 X10^3/ul (0.83-4.51); Lymphocyte % 26.3 % (19-41); Mean Corp Hgb Conc 30.5 g/dL (32-36); Mean Corpuscular Hgb 26.5 pg (27.0-32.0); Mean Platelet Vol. 11.3 fl (6.2-12.0); Monocyte# 0.49 X10^3/uL; Monocyte% 4.4 % (0-10); NRBC Flagged by Analyzer 0 % (0-5); Neutrophil # 7.13 X10^3/uL (2.7-7.7); Neutrophil % 63.6 % (47-70); Platelet Count 292 K/mm3 (150-450); RBC Distribution Width CV 17.9 % (11.6-14.6); RBC Distribution Width SD 56.2 fl (35.1-43.9); Red Blood Count 4.07 M/mm3 (4.6-6.2); White Blood Count 11.2 K/mm3 (4.4-11.0)
[2024-02-02 16:53] LABS: AST(SGOT) 15 U/L (15-37); Alanine Aminotransfer ALT/SGPT 17 U/L (16-61); Albumin, Serum 3.9 g/dL (3.2-5.0); Alkaline Phosphatase 97 U/L (45-117); Anion Gap 6 (5-15); BUN 6 mg/dL (7-18); BUN/Creat Ratio 7.7 RATIO (10-20); Calcium,Total 9.4 mg/dL (8.5-10.1); Chloride 105 mmol/L (98-107); Creatinine, Serum 0.78 mg/dL (0.70-1.30); EST Glomerular Filtration Rate 109 mL/min (>60); Est Glom Filt Rate - Afr Amer 132 mL/min (>60); Globulin 4.1 g/dL (2.2-4.2); Glucose 131 mg/dL (74-106); Potassium 3.4 mmol/L (3.5-5.1); Sodium Level 136 mmol/L (136-145)
== END | disposition home or self-care (01) ==
LOC: BIMLAB 13:58
PROVIDERS: PCP Internal Medicine; Visit Provider Internal Medicine
DX: D64.9 Anemia, unspecified (principal); E87.1 Hypo-osmolality and hyponatremia
CPT/HCPCS: 36415; 80053; 85025

== ENCOUNTER → 2024-02-17 | Outpatient (CLI) | payer MEDICAID, SELFPAY ==
[2024-02-17 08:27] VITALS: PULSE 105; PULSE 109; PULSE 110; PULSE 112; PULSE 117; PULSE 118; PULSE 97; O2SAT 100; O2SAT 98; O2SAT 99
[2024-02-17 09:09] LABS: Prothrombin Time (Protime)PT. 13.5 SECONDS (11.7-14.9)
--- NOTE | 2024-02-18 12:55 | PCM.PSN.6M ---
PSN 6 Minute Walk Test 6 Minute Walk Test 6 Minute Walk Test: 6 Minute Walk Test PSN:6-Minute Walk Test Start: 02/17/24 08:26 Freq: Status: Active Protocol: RESP.6MINW Document 02/17/24 08:27 MAKAYLA (Rec: 02/17/24 08:29 MAKAYLA [id number]) 6 Minute Walk Test Date Performed 02/17/24 Time Performed 08:15 Height 5 ft 11 in Weight: 170 lb Weight in Pounds 170.[address]: Roger Jacome Assistive device used: None Pre-test Oxygen Delivery Method Room Air Pulse Ox (%) 100 Pulse Rate (60-100 beats/min) 109 H Dyspnea Yelena Scale (0-10) 0 Exertion Yelena Scale (6-20) 6 1st minute Oxygen Delivery Method Room Air Pulse Ox (%) 99 Pulse Rate (60-100 beats/min) 105 H 2nd minute Oxygen Delivery Method Room Air Pulse Ox (%) 99 Pulse Rate (60-100 beats/min) 118 H 3rd minute Oxygen Delivery Method Room Air Pulse Ox (%) 98 Pulse Rate (60-100 beats/min) 110 H 4th minute Oxygen Delivery Method Room Air Pulse Ox (%) 98 Pulse Rate (60-100 beats/min) 109 H 5th minute Oxygen Delivery Method Room Air Pulse Ox (%) 98 Pulse Rate (60-100 beats/min) 112 H 6th minute Oxygen Delivery Method Room Air Pulse Ox (%) 98 Pulse Rate (60-100 beats/min) 117 H Dyspnea Yelena Scale (0-10) 2 Exertion Yelena Scale (6-20) 13 Post-test Oxygen Delivery Method Room Air Pulse Ox (%) 99 Pulse Rate (60-100 beats/min) 97 Full Laps Walked 16 Partial Lap, Number of Tiles Walked 15 Total Distance Walked (ft) 959 Interpretation Interpretation: The patient ambulated 959 feet over the course of 6 minutes beginning on room air without assistive devices. Pretesting oxygen saturation was noted to be 100% on room air. With ambulation, the nba oxygen saturation was 98%. There was no significant exertional oxygen desaturation. Recommendations Recommendations: There is no indication for the use of supplemental oxygen at this time.
== END | disposition home or self-care (01) ==
PROVIDERS: PCP Internal Medicine; Referring Provider Internal Medicine Critical Care Medicine; Visit Provider Internal Medicine Critical Care Medicine
DX: R91.1 Solitary pulmonary nodule (principal); Z87.891 Personal history of nicotine dependence
CPT/HCPCS: 36415; 85610; 94618

== ENCOUNTER → 2024-02-19 | Outpatient (CLI) | payer MEDICAID, SELFPAY | END | disposition home or self-care (01) | LOC: PSN 09:23 | PROVIDERS: PCP Internal Medicine; Referring Provider Internal Medicine Critical Care Medicine; Visit Provider Internal Medicine Critical Care Medicine | DX: R91.1 Solitary pulmonary nodule (principal); Z87.891 Personal history of nicotine dependence | CPT/HCPCS: 94060; 94726; 94729 ==

== ENCOUNTER 2024-02-26 08:01 | Outpatient (CLI) | payer MEDICAID, SELFPAY ==
[2024-02-26] VITALS (15 sets, daily range): BP systolic 142–185; BP diastolic 82–108; PULSE 79–84; RESP 16–20; TEMP 36.8; O2SAT 99; BMI 23.4
--- NOTE | 2024-02-26 | ASPIGT_PTH ---
PATIENT: NICOLE KEITH LOC: CT U#:[id number] AGE/SX: 58/M ROOM: RE02/26/[address]: Dr. Roger Jacome DO : 1965 BED: DIS: 02/26/2024 SPEC #: [id number] RECD: 02/26/24 11:28 STATUS: HARSH REQ #: [id number] LUANA: 02/26/24 00:[address]: Roger Jacome DEPT: SURGICAL PATHOLOGY RECD BY: Francesco Sanchez ENTERED: 02/26/24 11:29 SP TYPE: ASP RAD OTHR DR: Dr. Nichole Grove MD Tissues: Left lower lobe of lung, NOS Procedures: FNA Specimen Adequacy Special Stain Group II Surgery Specimen Level IV Imprint (control) HEADER OPERATION: CT guided LLL lung biopsy PRE-OP DIAGNOSIS: LLL mass TISSUE SUBMITTED: Left lower lung nodule MICROSCOPIC DIAGNOSIS Left lower lung nodule, CT guided core biopsy: Fragments of lung parenchymal tissue with focal mild chronic inflammation. Negative for malignancy. See comment. MARITZA 02/27/2024 COMMENT The specimen is evaluated at the time of CT by Dr. Best. Immediate Evaluation = Mild atypical cells noted. Reported to Ms. Robb on 02/26/24 Focal areas of recent hemorrhage are noted, most likely procedure related. Correlation with clinical, radiologic findings and appropriate follow up are necessary. MICROSCOPIC DESCRIPTION Slides are reviewed. GROSS DESCRIPTION Received is one container labeled with the patient name and designated left lower lung nodule. The specimen consists of multiple irregular fragments of light gonsalez soft tissue that in aggregate measure 0.5 x 1 x <0.1 cm. The specimen is totally submitted in one cassette. Two touch imprints are prepared at the time of core biopsy. Wilber 02/26/24 TC: 5 CPT: 37626, 17154
[2024-02-26] MEDS: 0.9% Saline Lock 10 ML Syringe IV (08:39)
[2024-02-26] MEDS: Midazolam 2 MG/2 ML Syringe IV (08:58)
[2024-02-26] MEDS: fentaNYL 100 MCG/2 ML Ampul IV ×2 (09:01→09:11)
[2024-02-26] MEDS: Lidocaine 2% (20 ml mdv) 20 ML Vial INFILT (09:11)
--- NOTE | 2024-02-26 09:30 | RAD_ITS ---
HISTORY: post lung biopsy -- Immediately post lung biopsy. TECHNIQUE: XR Chest 2 Views. COMPARISON: 12/28/2023. FINDINGS: CARDIOMEDIASTINAL BORDERS: Cardiac silhouette within normal limits in size. Mediastinal contour unremarkable with calcification of the aortic knob. LUNGS: Small calcified granulomas in the left upper and right lower lung. Scarring and irregular opacity adjacent to the left heart border. PLEURA: No pleural effusion or pneumothorax seen. OSSEOUS STRUCTURES: Old right fifth through eighth rib fractures. RAD/Chest Insp/Exp 2 View IMPRESSION: No pneumothorax identified. Electronically Signed: Allison Baeza MD at 10:01 EST ,
--- NOTE | 2024-02-26 10:59 | OP.PCM_ITS ---
Problems Associated Problem List Diagnoses (1) Left lower lobe pulmonary nodule: Procedures Radiology Radiology CT Procedures: 55708 Biopsy Lung Operative Report (Standard) Operative Information Date of Procedure: 02/26/24 Pre-Operative Diagnosis: LLL lung nodule Post-Operative Diagnosis: LLL lung nodule Surgery/Procedure Performed: Lung Biopsy rehab tech: No Type of Anesthesia: IV Sedation Procedure Start Time: 08:58 Procedure Stop Time: 09:18 Select all DRAINS/GRAFTS/IMPLANTS that apply: None Estimated Blood Loss: scant Specimen collected: Yes Description of specimen(s) removed: 5 cores Description of surgery: PROCEDURE: CT GUIDED CORE NEEDLE LUNG BIOPSY ORDERING PROVIDER: Dr. Roger Jacome INDICATION: Male, 58 years old. Left lower lobe lung nodule PROVIDER: MELI Montalvo CONSENT: Written informed consent was obtained having explained the risks, benefits and alternatives in detail with the patient who accepted the risks and agreed to proceed. Laboratory review and clinical assessment was performed. PRE-PROCEDURE SEDATION ASSESSMENT: Current history and physical dictated by referring physician and reviewed. No clinical changes since date of exam. Patient has a Mallampati Score of Class 1 and ASA Class of 3. PROCEDURAL SEDATION PROTOCOL: The Drugs used were: 2 mg Versed, IV, and 75 mcg Fentanyl, IV. The sedation time was: 20 minutes, starting at 8:58 AM and terminated at 9:18 AM. The procedural sedation protocol was independently monitored by the department nurse. RADIATION DOSAGE (Supplied By Facility): CTDIvol = 18.83 mGy, DLP = 596.77 mGycm Individualized dose optimization techniques were used for this CT. TECHNIQUE: The patient was placed in a prone position. A noncontrast CT was performed to localize the lesion in the left lower lobe. The skin surface was prepped with chlorhexidine and draped in a sterile fashion. 2% lidocaine was used for local anesthesia. Using CT guidance, a 20-gauge coaxial biopsy device was advanced to the periphery of the lesion. A total of 5 core specimens were obtained. Specimens were microscopically reviewed by pathology in the CT suite and placed in formalin solution. BioSentry tract sealant system was deployed at the biopsy site, and the biopsy needle was removed. A sterile occlusive dressing was applied to the biopsy site. The patient tolerated the procedure well. An immediate chest xray was ordered, per protocol. A negative biopsy does not exclude malignancy. Further imaging or clinical followup based on patient condition and degree of clinical suspicion for malignancy. Suggest rebiopsy, if biopsy results do not match with clinical scenario. IMPRESSION: CT directed core needle biopsy of left lower lobe lung nodule using CT image guidance with image documentation as described. Pathology results are pending. Procedural Sedation protocol utilized with independent monitoring by the department nurse. Surgical Findings: successful biopsy Complications Complications: No
--- NOTE | 2024-02-26 11:17 | RAD_ITS ---
STUDY: X-RAY CHEST REASON FOR EXAM: Male, 58 years old. 2 hr post lung biopsy -- 2 hours post lung biopsy TECHNIQUE: Single AP portable view of the chest. COMPARISON: 02/26/2024 FINDINGS: The lungs are clear and expanded. There is no demonstrated pleural abnormality. Normal size heart. Normal mediastinum and june. Normal visualized pulmonary arteries. Normal visualized aortic arch and descending thoracic aorta. Normal visualized thoracic spine. Multiple healed right rib fractures. There is no demonstrated abnormality of the visualized soft tissue structures of the upper abdomen. RAD/Chest Insp/Exp 2 View IMPRESSION: No pneumothorax after lung biopsy. Electronically Signed: Juan Antonio Restrepo MD at 12:48 EST ,
== END 2024-02-26 23:59 | disposition home or self-care (01) ==
LOC: CT 08:01
PROVIDERS: PCP Internal Medicine; Referring Provider Internal Medicine Critical Care Medicine; Visit Provider Internal Medicine Critical Care Medicine
DX: R91.1 Solitary pulmonary nodule (principal)
CPT/HCPCS: 32408; 71046; 77012; 88172; 88305; 88313; 99156; A4216; C2613

== ENCOUNTER → 2024-04-15 | Outpatient (CLI) | payer MEDICAID, SELFPAY ==
--- NOTE | 2024-04-15 06:56 | CT_ITS ---
PROCEDURE: CHEST WITHOUT CONTRAST REASON FOR EXAM: Prior right lung biopsy. 2 day history of cough. COPD. TECHNIQUE: Chest CT without contrast. Multiple axial tomographic images were obtained without intravenous contrast administration. Coronal and sagittal reconstruction was obtained as well. COMPARISON: Comparison is made with prior study dated December 05, 2023. FINDINGS: Hardware: None. Lymph nodes: Calcified right hilar and subcarinal adenopathy. Heart and Vasculature: Normal heart size. No pericardial effusion. Atherosclerotic calcifications of the thoracic aorta. Thoracic aorta and pulmonary arteries have normal contours; noncontrast technique limits evaluation. Coronary Artery Calcifications: Present Lungs and Airways: Scattered calcified granulomas. Hyperinflation. Mild emphysematous changes. Mild residual increased linear markings at the left lung base as compared to prior study. Prior left lower lobe infiltration/mass most likely represented pneumonic infiltration. Pleura: No pleural effusion. No pneumothorax. Upper Abdomen: Visualized portions of the upper abdominal viscera are unremarkable. Bones: Degenerative changes of the thoracic spine. CT/Chest without Contrast IMPRESSION: Interval improvement in the previously seen left lower lobe infiltrate/mass wit h mild residual changes. The remainder of the examination is unchanged. One or more dose reduction techniques were used (e.g., Automated exposure contr ol, adjustment of the mA and/or kV according to patient size, use of iterative reconstruction technique). Reading Location: [place] [id number]
== END | disposition home or self-care (01) ==
LOC: CT 06:55
PROVIDERS: PCP Internal Medicine; Referring Provider Nurse Practitioner Family; Visit Provider Nurse Practitioner Family
DX: R91.1 Solitary pulmonary nodule (principal)
CPT/HCPCS: 71250

== ENCOUNTER → 2024-08-18 | Outpatient (CLI) | payer MEDICAID, SELFPAY ==
--- NOTE | 2024-08-18 18:56 | CT_ITS ---
PROCEDURE: CHEST WITHOUT CONTRAST 08/18/2024 REASON FOR EXAM: LUNG MASS IN HIGH RISK PATIENT TECHNIQUE: Chest CT without contrast. Coronal and Sagittal reconstruction series were provided. One or more dose reduction techniques were used (e.g., Automated exposure control, adjustment of the mA and/or kV according to patient size, use of iterative reconstruction technique RADIATION DOSE SUMMARY: CTDlvol: 11.48 mGy DLP: 430 mGycm COMPARISON: 04/15/2024. FINDINGS: Chronic deformities in the posterior arches of the right 5th, 6th, 7th, 8th and 9th ribs. Unchanged scattered calcified pulmonary granulomas. Unchanged emphysema. Unchanged mild residual scar/increased linear markings in the left lung base. Unchanged moderate coronary artery calcifications. Unchanged calcified mediastinal and hilar lymph nodes. The left thyroid lobe is absent or diminutive. Normal unenhanced main pulmonary artery and right and left pulmonary arteries. Normal bilateral peripheral pulmonary arteries. Normal thoracic aorta and visualized great vessels. There is no demonstrated aortic aneurysm. Normal heart and pericardium. Normal mediastinum. Normal hilar regions. Normal visualized trachea and bronchi. Normal pleura. Normal visualized upper abdomen. CT/Chest without Contrast IMPRESSION: Coronary artery calcification (CAC) is is present Chronic deformities in the posterior arches of the right 5th, 6th, 7th, 8th and 9th ribs. Unchanged scattered calcified pulmonary granulomas. Unchanged emphysema. Unchanged mild residual scar/increased linear markings in the left lung base. Unchanged moderate coronary artery calcifications. Unchanged calcified mediastinal and hilar lymph nodes. The left thyroid lobe is absent or diminutive. Reading Location: [id number]
== END | disposition home or self-care (01) ==
PROVIDERS: PCP Internal Medicine; Referring Provider Nurse Practitioner Family; Visit Provider Nurse Practitioner Family
DX: R91.1 Solitary pulmonary nodule (principal)
CPT/HCPCS: 71250

== ENCOUNTER → 2025-03-01 | Outpatient (CLI) | payer MEDICAID, SELFPAY ==
--- NOTE | 2025-03-01 12:29 | CT_ITS ---
PROCEDURE: CHEST WITHOUT CONTRAST 03/01/2025 REASON FOR EXAM: Clinical history of lung nodule. TECHNIQUE: Chest CT without contrast. Coronal and Sagittal reconstruction series were provided. One or more dose reduction techniques were used (e.g., Automated exposure control, adjustment of the mA and/or kV according to patient size, use of iterative reconstruction technique RADIATION DOSE SUMMARY: DLP: 416.42 mGycm COMPARISON: CT chest 08/18/2024 FINDINGS: Pulmonary parenchyma: No focal lung consolidation. Mild emphysematous changes. Mild dependent atelectasis. Redemonstrated left lower lobe scarring which appears grossly unchanged. There are no suspicious pulmonary nodules. Scattered calcified granulomas. Airways: The central airways are patent. Pleural space: No pneumothorax or pleural effusion. Heart and pericardium: The heart is normal in size. Trace pericardial effusion. There are coronary artery calcifications. Mediastinum and june: Unremarkable. Thoracic vessels: The thoracic aorta and main pulmonary artery are normal in caliber. Scattered atherosclerotic calcification in the thoracic aorta. Osseous structures: No aggressive osseous lesion. Degenerative changes of the thoracic spine. Multiple small Schmorl's nodes. Chronic right rib fractures including the posterior 5th, 6th, 7th, 8th, and 9th ribs. Thyroid gland: Non-visualization of the left thyroid gland. Upper visualized abdomen: Unremarkable. CT/Chest without Contrast IMPRESSION: 1. No suspicious pulmonary nodules. 2. Redemonstrated left lower lobe scarring. 3. Coronary artery calcifications. 4. Mild pulmonary emphysema. Reading Location: [id number]
== END | disposition home or self-care (01) ==
LOC: CT 12:28
PROVIDERS: PCP Internal Medicine; Referring Provider Nurse Practitioner Family; Visit Provider Nurse Practitioner Family
DX: R91.1 Solitary pulmonary nodule (principal)
CPT/HCPCS: 71250